=== PATIENT | male | born 1935 | race Caucasian/White ===

== ENCOUNTER 2023-02-02 11:24 | Outpatient (OUT) | payer MEDICARE, OTHER, SELFPAY ==
--- NOTE | 2023-02-02 11:37 | XR_ITS ---
[address] [address] Patient Name: KINGSLEY JENNINGS MRN: [id number] date: 1935 Sex: M Assigned Patient Location: [facility] Current Patient Location: [facility] Accession/Order Number: [id number] Exam Date: 02/02/2023 11:40 Report Date: 02/02/2023 12:07 At the request of: JENNIFER ESTES Procedure: XR lumbar spine 2-3V EXAM: XR lumbar spine 2-3V HISTORY: Lumbar Radiculopathy M54.16 COMPARISON: None. TECHNIQUE: 3 views Findings/impression: Satisfactory alignment. Maintained vertebral body heights. Mild endplate degenerative changes, disc disease, and facet arthropathy of L5-S1. No acute fracture or subluxation. Scattered calcified atherosclerotic disease of aorta. Electronically authenticated by: ASIF COLIN Date: 02/02/2023 12:07
== END 2023-02-02 11:25 | disposition home or self-care (01) ==
LOC: RAD 11:29
PROVIDERS: PCP Family Medicine; Visit Provider Family Medicine
DX: M54.16 Radiculopathy, lumbar region (principal)
CPT/HCPCS: 72100

== ENCOUNTER 2023-02-21 09:48 | Outpatient (RCR) | payer MEDICARE, OTHER, SELFPAY | END 2023-03-09 16:34 | disposition home or self-care (01) | LOC: PT 09:48 | PROVIDERS: PCP Family Medicine; Visit Provider Family Medicine | DX: M54.16 Radiculopathy, lumbar region (principal) | CPT/HCPCS: 97012; 97110; 97161 ==

== ENCOUNTER 2023-08-19 08:00 | Outpatient (REF) | payer MEDICARE, OTHER, SELFPAY ==
--- OUTSIDE RECORDS SUMMARY | 2023-08-20 11:27 | XMS_ITS | CCD ---
Author Organization [facility] Providers Care Kiln Cleaner Name Role Phone DAI SHARIFAB A Attending Unavailable ELTADAI PHOENIXAB A Admitting Unavailable JENNIFER MELVIN Referring Unavailable DOUGYJENNIFER Primary Care Unavailable HOY ., DR RODRIGUEZ Consulting Unavailable HOY ., DR RODRIGUEZ Primary Care Unavailable HOY ., DR RODRIGUEZ Attending Unavailable HOY ., DR RODRIGUEZ Admitting Unavailable ELTAHAWY, DR VALLEJO Consulting Unavailable HOY ., DR RODRIGUEZ Primary Care Unavailable HOY ., DR RODRIGUEZ Attending Unavailable HOY ., DR RODRIGUEZ Admitting Unavailable HOY ., DR RODRIGUEZ Primary Care Unavailable HOY ., DR RODRIGUEZ Attending Unavailable HOY ., DR RODRIGUEZ Admitting Unavailable ELTAHAWY, DR VALLEJO Consulting Unavailable HOY ., DR RODRIGUEZ Primary Care Unavailable ELTAHAWY, DR VALLEJO Attending Unavailable ELTAHAWY, DR VALLEJO Admitting Unavailable HOY ., DR RODRIGUEZ Consulting Unavailable HOY ., DR RODRIGUEZ Primary Care Unavailable HOY ., DR RODRIGUEZ Attending Unavailable HOY ., DR RODRIGUEZ Admvashti Unavailable ZIEBER, DR MACY Beckman Consulting Unavailable HOY ., DR RODRIGUEZ Consulting Unavailable HOY ., DR RODRIGUEZ Primary Care Unavailable HOY ., DR RODRIGUEZ Attending Unavailable HOY ., DR RODRIGUEZ Admitting Unavailable ZIEBER, DR MACY Beckman Consulting Unavailable HOY ., DR RODRIGUEZ Consulting Unavailable HOY ., DR RODRIGUEZ Primary Care Unavailable HOY ., DR RODRIGUEZ Attending Unavailable HOY ., DR RODRIGUEZ Admvashti Unavailable Gay Wheleer Consulting Unavailable [facility] Consulting Unavailable HOY ., DR RODRIGUEZ Primary Care Unavailable [facility] Attending Unavailable [facility] Admitting Unavailable [facility] Consulting Unavailable HOY ., DR RODRIGUEZ Primary Care Unavailable [facility] Attending Unavailable [facility] Admitting Unavailable HOY ., DR RODRIGUEZ Consulting Unavailable HOY ., DR RODRIGUEZ Primary Care Unavailable MEERA ., DR RODRIGUEZ Attending Unavailable MEERA ., DR RODRIGUEZ Admitting Unavailable Gay Wheeler Consulting Unavailable [facility], DR VALLEJO Consulting Unavailable VINH GUZMAN Attending Unavailable [facility], ADÁN Attending Unavailable [facility] Attending Unavailable Problems Active Problems Problem Classification Problem Date Documented Da te Episodic/Chronic Cardiac dysrhythmias (1 source) Ventricular tachycardia; Translations: [VENTRICULAR TACHYCARDIA] Onset: 12-21-2021 Chronic 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 sources) 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; Translations: [Angina pectoris, unspecified] Onset: 12-20-2021 Chronic Disorders of lipid metabolism (7 sources) Pure hypercholesterolemia, unspecified; Translations: [Mixed hyperlipidemia] Onset: 12-21-2021 Chronic Essential hypertension (2 sources) Essential (primary) hypertension; Translations: [Essential (primary) hypertension] Onset: 08-11-2022 Chronic Heart valve disorders (1 source) Rheumatic tricuspid insufficiency; 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 TRICUSPID INSUFFICIENCY] Onset: 12-22-2021 Chronic Other fractures (4 sources) Collapsed vertebra, not elsewhere classified, lumbosacral region, initial encounter for fracture; Translations: [COLLAPSED VERT NEC LS RGN INIT ENC] Onset: 05-22-2022 Episodic Other gastrointestinal disorders (1 source) Constipation, unspecified; Translations: [CONSTIPATION UNSPECIFIED] Onset: 07-31-2022 Episodic Other screening for suspected conditions (not mental disorders or infectious disease) (5 sources) Encounter for screening for malignant neoplasm of rectum; Translations: [Abnormal result of other cardiovascular function study] Onset: 12-21-2021 Episodic Nadia-; endo-; and myocarditis; cardiomyopathy (except that caused by tuberculosis or sexually transmitted disease) (1 source) Cardiomyopathy due to drug and external agent; 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] Onset: 12-22-2021 Chronic Spondylosis; intervertebral disc disorders; other back problems (2 sources) Other spondylosis with radiculopathy, lumbosacral region; Translations: [Other intervertebral disc degeneration, lumbosacral region] Onset: 05-25-2022 Chronic Spondylosis; intervertebral disc disorders; other back problems (7 sources) Radiculopathy, lumbar region; Translations: [Pain in thoracic spine] Onset: 01-05-2022 Episodic Sprains and strains (4 sources) Strain of muscle and tendon of back wall of thorax, subsequent encounter; Translations: [STRN MUSC TENDON BACK WALL THOR SUB] Onset: 05-14-2022 Episodic Unclassified (1 source) CONTACT W/AND (SUSP) EXPOS COVID-19; Translations: [CONTACT W/AND (SUSP) EXPOS COVID-19] Onset: 12-27-2021 Past or Other Problems Problem Classification Problem Date Documented Da te Episodic/Chronic Coronary atherosclerosis and other heart disease (2 sources) Presence of aortocoronary bypass graft; Translations: [Presence of aortocoronary bypass graft] Onset: 08-11-2022 Episodic Other aftercare (1 source) 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; Translations: [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] Onset: 12-27-2021 Episodic Results Test Name Value Interpretation Reference Range Facility Office Visiton 08-08-2023 Follow-up visit [id number] Fernie Naranjo 1935 M Date Provider Department Center 08/08/2023 271ADÁN WILL [facility] No family history on file Level of Service:36916 [place] OFFICE/OUTPATIENT ESTABLISHED LOW MDM 20 MIN Normal [facility] Office Visiton 02-06-2023 Follow-up visit [id number] Fernie Naranjo D 1935 M Date Provider Department Center 02/06/2023 ADÁN CHING ESPINOZA [facility] No family history on file Level of Service:04939 [place] OFFICE/OUTPATIENT ESTABLISHED LOW MDM 20-29 MIN Normal [facility] Office Visiton 08-11-2022 Follow-up visit [id number] Fernie Naranjo 1935 M Date Provider Department Center 08/11/2022 VINH CLAY [facility]INO[facility] No family history on file Level of Service:33463 [place] OFFICE/OUTPATIENT ESTABLISHED MOD MDM 30-39 MIN Reason for Visit and Comments: Follow-up [616261] - 6 mo f/u Medication Problem [65] - Dr. Melvin took him off of Amlodipine for 2 weeks due to constipation. However, it made no difference so far. Kingsley starts back on it tomorrow, August 12. Normal [facility] OCC BLD IMMUNO SCREENon 07-12 OCCULT BLOOD Negative Normal NEGATIVE [facility] Comment on above: Performed By: #### O BSCRN #### [facility] [address] [place] [address] Dr. Gricel Busch MRI LSPINE WO CONon 06-09-19 23 MRI LSPINE WO CON EXAMINATION: MRI LSP INE WO CON HISTORY: Lumbar radiculopathy COMPARISON: No relevant comparison available. TECHNIQUE: A variety of imaging planes and parameters were utilized for visualization of suspected pathology. FINDINGS: For the purposes of numbering, sagittal T2 image # 7 extends from the T11 vertebral body superiorly to the S3 level inferiorly. PARASPINAL AREA: Normal with no visible mass. BONES: Normal alignment with no acute fracture or spondylolisthesis. Small amount of bone edema identified inferior endplate of L3 superior endplate of L4, stable. Heterogeneous appearance of the marrow likely age-related changes CORD/CAUDA EQUINA: Normal caliber, contour, and signal intensity. DISC LEVELS: 12-L1: No significant disc/facet abnormality, spinal stenosis, or foraminal stenosis. L1-L2: Early degenerative disc disease is present without focal protrusion or neural impingement. L2-L3: Early degenerative disc disease is present without focal protrusion or neural impingement. L3-L4: Early degenerative disc disease is present without focal protrusion or neural impingement. L4-L5: Early degenerative disc disease is present without focal protrusion or neural impingement. L5-S1: Moderate degenerative disc disease is present without visible neural impingement. IMPRESSION: Mild to moderate degenerative changes most significant at L5-S1 No significant central canal or neural foraminal stenosis Electronically authenticated by: GAY WHEELER Date: 2022-06-09 09:46 Normal [facility] CT TSPINE WO CONon 2 CT TSPINE WO CON EXAMINATION: CT TSPI NE WO CON HISTORY: Pain in thoracic spine ; chronic thoracic pain between shoulder blades COMPARISON: No relevant comparison available. TECHNIQUE: Axial, Coronal, and Sagittal CT images obtained without and with IV contrast. Dose reduction techniques were achieved by using automated exposure control and/or adjustment of mA and/or kV according to patient size and/or use of iterative reconstruction technique. FINDINGS: PARASPINAL AREA: Incidental chronic calcified subcarinal lymph nodes within the mediastinum. DISCS: Early degenerative disc disease is present without focal protrusion or neural impingement. BONES: No fracture, pars defect, or osseous lesion. OTHER: Negative. IMPRESSION: 1. No appreciable acute abnormality. 2. Minimal degenerative changes. 3. No specific findings to account for patient's symptoms. Electronically authenticated by: MACY MICHAEL Date: 2022-01-05 16:34 Normal [facility] CBC COMPLETE BLOOD COUNTon 12-29-2021 Erythrocyte distribution width (RBC) [Ratio] 13.4 % Normal 11.5-15.0 [facility] Comment on above: Order Comment: No: D o not add to previous draw Performed By: #### 5 [id number] #### [facility] [address] Hematocrit (Bld) [Volume fraction] 38.5 % Low 39.0-50.0 [facility] Comment on above: Order Comment: No: D o not add to previous draw Performed By: #### 5 [id number] #### [facility] [address] [place] [address], [facility] Hemoglobin (Bld) [Mass/Vol] 13.5 g/dL Normal 13.0-17.0 [facility] Comment on above: Order Comment: No: D o not add to previous draw Performed By: #### 5 [id number] #### [facility] [address] [facility] [place] [address], [facility] MCH (RBC) [Entitic mass] 32.4 pg Normal 27.0-33.0 [facility] Comment on above: Order Comment: No: D o not add to previous draw Performed By: #### 5 [id number] #### [facility] [address] [place] [address], [facility] MCHC (RBC) [Mass/Vol] 35.1 g/dL High 32.0-35.0 [facility] Comment on above: Order Comment: No: D o not add to previous draw Performed By: #### 5 [id number] #### [facility] [address] [facility] [address], [facility] MCV (RBC) [Entitic vol] 92.3 fL Normal 82.0-98.0 [facility] Comment on above: Order Comment: No: D o not add to previous draw Performed By: #### 5 [id number] #### [facility] [address] [place] [address], [facility] Nucleated RBC/100 WBC (Bld) [Ratio] 0 % Normal 0-0 [facility] Comment on above: Order Comment: No: D o not add to previous draw Performed By: #### 5 [id number] #### [facility] [address] [place] [address], [facility] PLAT CNT 165 10*3/uL Normal 150-400 [facility] Comment on above: Order Comment: No: D o not add to previous draw Performed By: #### 5 [id number] #### [facility] [address] [place] [address], [facility] RBC (Bld) [#/Vol] 4.17 10*6/uL Low 4.20-5.70 [facility] Comment on above: Order Comment: No: D o not add to previous draw Performed By: #### 5 [id number] #### [facility] [address] [place] [address], [facility] WBC (Bld) [#/Vol] 8.33 10*3/uL Normal 4.00-10.60 [facility] Comment on above: Order Comment: No: D o not add to previous draw Performed By: #### 5 [id number] #### [facility] [address] [place] [address], [facility] CREATININE BLOODon 2 Creatinine [Mass/Vol] 0.82 mg/dL Normal 0.70-1.30 [facility] Comment on above: Order Comment: No: D o not add to previous draw Performed By: #### 2 5656 #### [facility] [address] GFR/1.73 sq M.predicted among non-blacks MDRD (S/P/Bld) [Vol rate/Area] mL/min/{1.73_m2} Normal >60 [facility] Comment on above: Order Comment: No: D o not add to previous draw Result Comment: [facility]'s estimated glomerular filtration rate (eGFR) will no longer include consideration of race in its calculation. The National Kid[employer] Foundation's eGFR Task Force developed new recommendations for the estimation of the glomerular filtration rate in the [place] They recommend immediate implementation of the new equation refit without the race variable in all laboratories because the calculation does not include race. In addition to not including race in the calculation and reporting, it included diversity in its development, and has acceptable performance characteristics and potential consequences that do not disproportionately affect any one group of individuals. Performed By: #### 2 [id number] #### [facility] [address] Cardiovascular Lab Reporton 12-29-2021 Cardiovascular Lab Report [facility] Patient Name: Marcella [facility] Shahrzad MR #: [id number] Department of Physician: Adeline Carlos M.D. Division of Service Date: 12/28/2021 Cardiology Birthdate: 1935 Adult Cardiovascular Room #: 3AB [id number] [place] [address] Cardiovascular Laboratory Report FINAL IMPRESSIONS: 1. Severe stenoses in the king salmon obtuse marginal branch of the left circumflex coronary artery distal to the touchdown of the saphenous vein graft. 2. Moderate disease of the saphenous vein graft to the obtuse marginal branch of the left circumflex coronary artery with a patent stent in the mid- to distal graft. 3. Patent left internal mammary artery graft to the left anterior descending. 4. Moderate to severe distal disease in the left anterior descending. 5. Moderate disease of the right coronary artery with heavy calcification. 6. Occluded left anterior descending and left circumflex coronary arteries. 7. Elevated systemic blood pressure. RECOMMENDATIONS: 1. Given the age of the saphenous vein grafts, the size and diffuse disease of the king salmon obtuse marginal branch, the patient's age and comorbidities, a conservative approach is recommended. Risks of percutaneous revascularization likely outweigh benefits at this juncture. 2. Optimal medical therapy for coronary artery disease should include aspirin, high intensity statin therapy, beta allyson. 3. Will add Imdur 30 mg a day and up titrate for symptomatic relief. 4. Switch metoprolol tartrate to Coreg for better blood pressure control and improving the supply demand mismatch. 5. Consider non-cardiac (musculoskeletal) etiologies for positional back pain. 6. Follow up with Dr. Sharif in the [place] office in the next 2-4 weeks. 7. Follow up with Dr. Melvin as scheduled. PROCEDURES: Ultrasound-guided access to the right common femoral artery, limited femoral angiography, bilateral selective coronary angiography, angiography of internal mammary artery graft, angiography of the saphenous vein graft, placement of a 6-Peruvian MynxGrip closure device. METHODS: After risks, benefits, and alternatives were explained, written informed consent was obtained. The patient was prepped and draped in usual sterile fashion over both groins. Using 1% lidocaine solution, local infiltration anesthesia was achieved. Using a modified Seldinger technique and a micropuncture kit and under ultrasound guidance, access to the right common femoral artery was obtained. Angiography via the inner cannula of the micropuncture kit was performed. This was upsized to a 6-Peruvian 11 cm sheath. Bilateral selective coronary angiography was performed using JL4 and JR4 catheters. Angiography of the saphenous vein graft was performed using an LCB catheter. The JR4 was used to cannulate the left subclavian and exchanged out for an IM catheter. Angiography of internal mammary artery graft was performed. After reviewing the images, and discussion of the risks and benefits with the patient, it was elected to conclude the procedure. All catheters were removed. A 6-Peruvian MynxGrip closure device was deployed per protocol achieving optimal hemostasis. Overall, the patient tolerated the procedure well. There were no overt complications. He was to be transferred to the holding area in stable condition. FINDINGS: Hemodynamics. AO: 170/85. LEFT VENTRICULOGRAPHY: This was not performed. Ejection fraction is normal by noninvasive imaging. CORONARY ARTERIES: Left main coronary artery: This arises from the left coronary cusp. It bifurcates into the left anterior descending and left circumflex coronary arteries, it shows calcific plaque. Left anterior descending coronary artery: This is occluded in the proximal portion. Distal filling is seen via patent left internal mammary artery graft. There is 60% stenosis just distal to the touchdown of the LANE graft. This appears unchanged. Left circumflex coronary artery. This is a small caliber vessel with occluded obtuse marginals. Distal filling is seen into the king salmon obtuse marginal via saphenous vein graft. Just distal to the touchdown of the graft, there is 80% to 90% stenosis. The vessel is 2 to 2.5 mm in size in this location and tapers rapidly. Right coronary artery: This is a dominant vessel giving rise to the posterior descending and posterolateral branches. It shows diffuse calcific plaque throughout. There is 40% to 50% mid vessel stenosis. The ostium of the posterior descending artery shows 60% stenosis. The distal RCA shows discrete 70% stenosis just prior to the 1st posterolateral branch. GRAFT ANGIOGRAPHY: Left internal mammary artery graft to the left anterior descending: this is widely patent. Saphenous vein graft to the obtuse marginal: this shows a patent (more content not included)... Normal [facility] TROPONIN-Ion 12-28-2021 Troponin I.cardiac [Mass/Vol] 0.09 ng/mL High 0.00-0.04 [facility] Comment on above: Order Comment: No: D o not add to previous draw Result Comment: REFE RENCE RANGES: 0.00 - 0.04 ng/ml NORMAL 0.05 - 0.50 ng/ml INDETERMINATE > 0.50 ng/ml CONSISTENT WITH AN M.I. Performed By: #### 3 [id number] #### [facility] [address] [facility] [place] [address], [facility] CBC AUTO DIFFon 12-26-2021 BASO # 0.0 103/ul Normal 0.0-0.1 [facility] Comment on above: Performed By: #### C BC #### [facility] [address] [address] [address] Gricel Busch Basophils/100 WBC (Bld) 0.6 % Normal 0.2-2.0 [facility] Comment on above: Performed By: #### C BC #### [facility] [address] [place] [address] Dr. Gricel Busch EO # 0.1 103/ul Normal 0.0-0.7 [facility] Comment on above: Performed By: #### C BC #### [facility] [address] [place] [address] Dr. Gricel Busch Eosinophils/100 WBC (Bld) 1.8 % Normal 0.9-7.0 [facility] Comment on above: Performed By: #### C BC #### [facility] [address] [place] [address] Dr. Gricel Busch Erythrocyte distribution width (RBC) [Ratio] 13.1 % Normal 11.0-15.0 [facility] Comment on above: Performed By: #### C BC #### [facility] [address] [place] [address] Dr. Gricel Busch Hematocrit (Bld) [Volume fraction] 42.4 % Normal 42.0-54.0 [facility] Comment on above: Performed By: #### C BC #### [facility] [address] [place] [address] Dr. Gricel Busch Hemoglobin (Bld) [Mass/Vol] 13.9 g/dL Critically low 14.0-18.0 [facility] Comment on above: Performed By: #### C BC #### [facility] [address] [place] [address] Dr. Gricel Busch IG # 0.03 10e3/ul Normal 0.00-0.03 [facility] Comment on above: Performed By: #### C BC #### [facility] [address] [place] [address] Dr. Gricel Busch IG % 0.4 % Normal 0.0-0.5 [facility] Comment on above: Performed By: #### C BC #### [facility] [address] [place] [address] Dr. Gricel Busch LYMPH # 1.2 103/ul Normal 1.2-3.8 [facility] Comment on above: Performed By: #### C BC #### [facility] [address] [place] [address] Dr. Gricel Busch Lymphocytes/100 WBC (Bld) 16.9 % Critically low 20.5-60.0 [facility] Comment on above: Performed By: #### C BC #### [facility] [address] [place] [address] Dr. Gricel Busch MANUAL DIFF REQ NO Normal [facility] Comment on above: Performed By: #### C BC #### [facility] [address] [place] [address] Dr. Gricel Busch MCH (RBC) [Entitic mass] 31.3 pg Normal 25.9-34.0 [facility] Comment on above: Performed By: #### C BC #### [facility] [address] [place] [address] Dr. Gricel Busch MCHC (RBC) [Mass/Vol] 32.8 g/dL Normal 29.9-35.2 [facility] Comment on above: Performed By: #### C BC #### [facility] [address] [place] [address] Dr. Gricel Busch MCV (RBC) [Entitic vol] 95.5 fL Critically high 80.0-94.0 [facility] Comment on above: Performed By: #### C BC #### [facility] [address] [place] [address] Dr. Gricel Busch MONO # 0.8 103/ul Normal 0.3-0.8 [facility] Comment on above: Performed By: #### C BC #### [facility] [address] [place] [address] Dr. Gricel Busch Monocytes/100 WBC (Bld) 10.9 % Normal 1.7-12.0 [facility] Comment on above: Performed By: #### C BC #### [facility] [address] [place] [address] Dr. Gricel Busch NEUT # 4.9 103/ul Normal 1.4-6.5 [facility] Comment on above: Performed By: #### C BC #### [facility] [address] [address] [address] Gricel Busch Neutrophils/100 WBC (Bld) 69.4 % Normal 43.0-75.0 [facility] Comment on above: Performed By: #### C BC #### [facility] [address] [address] [address] Gricel Busch Platelet mean volume (Bld) [Entitic vol] 9.6 fL Normal 9.5-13.5 [facility] Comment on above: Performed By: #### C BC #### [facility] [address] [address] [address] Gricel Busch PLT 191 103/ul Normal 150-450 [facility] Comment on above: Performed By: #### C BC #### [facility] [address] [place] [address] Dr. Gricel Busch RBC 4.44 106/ul Critically low 4.70-6.10 [facility] Comment on above: Performed By: #### C BC #### [facility] [address] [address] [address] Gricel Busch WBC 7.1 103/ul Normal 4.0-11.0 [facility] Comment on above: Performed By: #### C BC #### [facility] [address] [address] [address] Gricel Busch Covid-19 PCR (CVDTB)on 12-12 SARS-CoV-2 (COVID-19) RNA NIR+probe Ql (Unsp spec) Not detected Normal NOT DETECTED [facility] Comment on above: Result Comment: This test is not yet approved or cleared by the [place] FDA. When there are no FDA-approved or cleared tests available, and other criteria are met, FDA can make tests available under an emergency access mechanism called an Emergency Use Authorization (EUA). The EUA for this test is supported by the [place] of Health and Human Service's (HHS's) declaration that circumstances exist to justify the emergency use of in vitro diagnostics for the detection and/or diagnosis of the virus that causes COVID-19. This EUA will remain in effect (meaning this test can be used) for the duration of the COVID-19 declaration justifying emergency of IVDs, unless it is terminated or revoked by FDA (after which the test may no longer be used). When diagnostic testing is negative, the possibility of a false negative should be considered in the context of a patient's recent exposures and the presence of clinical signs and symptoms consistent with SARS-CoV-2. Performed By: #### [facility] #### [facility] [address] [place] [address] Dr. Gricel Busch PROF CHEM 8 (BAS METB)on Anion gap [Moles/Vol] 9.6 mmol/L Normal [facility] Comment on above: Performed By: #### B MP #### [facility] [address] [place] [address] Dr. Gricel Busch Calcium [Mass/Vol] 9.8 mg/dL Normal 8.5-10.1 [facility] Comment on above: Performed By: #### B MP #### [facility] [address] [place] [address] Dr. Gricel Busch Chloride [Moles/Vol] 102 mmol/L Normal 98-107 [facility] Comment on above: Performed By: #### B MP #### [facility] [address] [place] [address] Dr. Gricel Busch CO2 [Moles/Vol] 28.1 mmol/L Normal 21.0-32.0 [facility] Comment on above: Performed By: #### B MP #### [facility] [address] [place] [address] Dr. Gricel Busch Creatinine [Mass/Vol] 0.88 mg/dL Normal 0.70-1.30 [facility] Comment on above: Performed By: #### B MP #### [facility] [address] [place] [address] Dr. Gricel Busch EGFR-AF PALESTINIAN >60 Normal >=60 [facility] Comment on above: Performed By: #### B MP #### [facility] [address] [place] [address] Dr. Gricel Busch EGFR-NON AF PALESTINIAN >60 Normal >=60 [facility] Comment on above: Performed By: #### B MP #### [facility] [address] [address] [address] Gricel Busch Glucose [Mass/Vol] 101 mg/dL Normal 74-106 [facility] Comment on above: Performed By: #### B MP #### [facility] [address] [address] [address] Gricel Busch Potassium [Moles/Vol] 4.7 mmol/L Normal 3.5-5.1 [facility] Comment on above: Performed By: #### B MP #### [facility] [address] [address] [address] Gricel Busch Sodium [Moles/Vol] 135 mmol/L Critically low 136-145 [facility] Comment on above: Performed By: #### B MP #### [facility] [address] [address] [address] Gricel Busch Urea nitrogen [Mass/Vol] 12.0 mg/dL Normal 7.0-18.0 [facility] Comment on above: Performed By: #### B MP #### [facility] [address] [address] [address] Gricel Busch Urea nitrogen/Creatinine [Mass ratio] 13.6 mg/mg Normal [facility] Comment on above: Performed By: #### B MP #### [facility] [address] [place] [address] Dr. Gricel Busch ECHOCARDIO M/2D COMPLETEon 0 12-21-2021 ECHOCARDIO M/2D COMPLETE Patient: KINGSLEY NARANJO Exam Date: 12/21/2021 : 1935 Gender:M Ordering : DR JENNIFER MELVIN . Admission #: [id number] Family : Order #: [id number] CLICK HERE TO VIEW EXAM ECHOCARDIOGRAM REPORT PROCEDURE: CARDIO PULMONARY ECHOCARDIO M/2D COMP INDICATIONS: Angina, Ischemic Cardiomyopathy COMPARISON: None. DESCRIPTION: COMPLETE ECHOCARDIOGRAM Real-time transthoracic echocardiography with 2D, M-mode, spectral and color flow Doppler performed. QUALITY: Technical quality was good. LEFT VENTRICLE: Normal chamber size. Normal left ventricular wall thickness. Global left ventricular systolic function is normal. LV EF: Estimated left ventricular ejection fraction is 55-60%. DIASTOLIC: Normal diastolic function. ATRIAL SEPTUM: LEFT ATRIUM: Mild dilatation. RIGHT ATRIUM: Mild dilatation. RIGHT VENTRICLE: Normal chamber size. Normal right ventricular systolic function. TRICUSPID VALVE: Normal mobility and thickness. No stenosis with mild to moderate regurgitation. No evidence of pulmonary hypertension. RVSP 28 mmHg MITRAL VALVE: Normal mobility and thickness. No mitral valve prolapse. No evidence of mitral valve stenosis. There is no mitral annular calcification. Trivial mitral regurgitation. AORTIC VALVE: Normal trileaflet appearance. No visible sclerosis. Normal leaflet mobility. No evidence of aortic valve stenosis. Trivial aortic regurgitation. AORTIC ROOT: Mildly dilated, measuring 3.9 cm. The ascending aorta measures 3.2 cm. PULMONIC VALVE: Normal thickness and mobility. No stenosis. Trivial regurgitation. PERICARDIUM: No evidence of pericardial effusion. IVC: Collapses with inspirations. Normal size. PLEURA: CONCLUSION: 1. Normal ventricular function. LVEF is 55 to 60%. 2. Mild biatrial dilatation. 3. Mild to moderate tricuspid regurgitation. 4. Normal right-sided pressures. 5. No pericardial effusion. 6. Mild dilated aortic root, measuring 3.9 cm. Dictated by: Kenney Daniels M.D. on 12/21/2021 at 19:22 Approved by: Kenney Daniels M.D. on 12/21/2021 at 19:28 Normal [facility] STRESS/REST MULTIon 12-20 [place] STRESS/REST MULTI Patient: KINGSLEY NARANJO Exam Date: 12/20/2021 : 1935 Gender:M Ordering : DR JENNIFER MELVIN . Admission #: [id number] Family : Order #: [id number] CLICK HERE TO VIEW EXAM RADIOLOGY REPORT PROCEDURE: RADIONUCLIDE IMAGING STRESS/REST MULTI COMPARISON: None. INDICATIONS: Ischemic cardiomyopathy, angina TECHNIQUE: Exam Description: Stress/Rest one day protocol gated SPECT Rest Imagin.7 mCi Tc-99m Cardiolite IV on 12/20/2021 Stress Imaging 29.7 mCi Tc-99m Cardiolite IV on 12/20/2021 Exercise Protocol: Rahul Heart Rate (bpm): Rest: 51 Max: 115 PMHR: 86 Blood Pressure: Rest: 114/76 Max: 174/80 Exercise Time: Minutes: 6 Seconds: 45 Stage Reached: Stage: 3 Mets 7.6 Symptoms: chest pain Rest and peak stress ECG findings were abnormal and the exercise portion of the study was abnormal per attending physician Dr. Thompson due to EKG changes. For more details please see separate cardiac stress test report. FINDINGS: QUALITY OF STUDY: Good. PERFUSION DEFECT: LOCATION: Basal inferolateral. Basal anterolateral. Mid-inferolateral. Mid-anterolateral. Apical lateral. SIZE: Large (5 or more segments). SEVERITY: Moderate. TYPE: Reversible. WALL MOTION: Normal. LV SIZE: Normal. 88 mL. TID / TCD: None; 0.9 LVEF: Normal. Calculated EF 61%. SUMMARY: Myocardial perfusion imaging study has ABNORMAL findings. CONCLUSION: 1. Large perfusion abnormality with suspected reversibility in the lateral wall, circumflex distribution. Further evaluation is recommended 2. Abnormal exercise test secondary to EKG changes Dictated by: Gay Wheeler MD on 12/20/2021 at 14:09 Approved by: Gay Wheeler MD on 12/20/2021 at 14:18 Normal [facility] Encounters Encounter Date Encounter Type Care Provider Facility Start: 08-08-2023 End: 08-08-2023 ambulatory [facility] Start: 07-25-2023 End: 07-25-2023 ambulatory Not Available Start: 07-12-2023 End: 07-12-2023 ambulatory Not Available Start: 02-06-2023 End: 02-06-2023 ambulatory [facility] Start: 08-11-2022 End: 08-11-2022 ambulatory VINH GUZMAN [facility] Start: 07-28-2022 End: 07-28-2022 ambulatory CK NIXON Facility:[facility] Start: 07-26-2022 End: 07-26-2022 ambulatory CK NIXON Facility:[facility] Start: 06-09-2022 End: 06-10-[address] JENNIFER MELVIN . Facility:[facility] Start: 05-22-2022 End: 05-23-[address] JENNIFER MELVIN . Facility:[facility] Start: 05-14-2022 End: 06-02-[address] JENNIFER MELVIN . Facility:[facility] Start: 05-01-2022 End: 05-13-[address] JENNIFER MELVIN . Facility:[facility] Start: 01-05-2022 End: 01-06-[address] JENNIFER MELVIN . Facility:[facility] Start: 12-28-2021 End: 12-29-2021 ambulatory DAI Anna TOYA Facility:[facility] Start: 12-26-2021 End: 12-27-[address] ADÁN SHARIF Facility:[facility] Start: 12-21-2021 End: 12-22-[address] JENNIFER MELVIN . Facility:[facility] Start: 12-20-2021 End: 12-21-[address] JENNIFER MELVIN . Facility: Payers Date Payer Category Payer Medicare [id number] 1960 Private Health Insurance [id number] 1935 Unknown [id number] 2.16.8 [id number] 1935 Unknown [id number] 2.16.84 [id number] 1935 Unknown [id number] 2.16.84 [id number] 1934 Unknown [id number] 2.16.84 [id number] 1934 Unknown [id number] 2.16.84 [id number] 1934 Unknown [id number] 2.16.84 [id number] 1934 Unknown [id number] 2.16.84 [id number] 1934 Unknown [id number] 2.16.84 [id number] 1934 Unknown [id number] 2.16.84 [id number] 1934 Unknown [id number] 2.16.84 [id number] 1934 Unknown [id number] 2.16.84 [id number] 1934 Unknown [id number] 2.16.84 [id number] 1934 Unknown [id number] 2.16.84 [id number] Clinical Notes 12-30-2021 to 08-08-2023 Note Date & Type Note Facility 08-08-2023 Note [facility] Cardiology Clinic Note Chief Complaint: Patient here for 6 mo follow up CAD, hyperlipidemia, and hypertension. He started cutting isosorbide in half due to headaches. Denies chest pain, SOB, palpitations, and lightheadedness/syncope. HPI: Kingsley Naranjo is a 87 y.o. male With a history of coronary artery disease, prior coronary artery bypass graft surgery who is here in routine follow-up. He has no significant cardiovascular complaints. He does have lower extremity edema and continues to have back pain which is chronic. His physicians are working to adjust his thyroid replacement. Cardiology ROS: Review of Systems Cardiovascular: Positive for leg swelling (L>R). Musculoskeletal: Positive for back pain. All other systems reviewed and are negative. Past Medical History He has no past medical history on file. Surgical History He has no past surgical history on file. Social History He reports that he has never smoked. He has never been exposed to tobacco smoke. He has never used smokeless tobacco. He reports current alcohol use. He reports that he does not use drugs. Family History No family history on file. Allergies Patient has no known allergies. Medications Current Outpatient Medications: amLODIPine (Norvasc) 2.5 mg tablet, Take 2.5 mg by mouth in the morning., Disp: , Rfl: aspirin 81 mg EC tablet, in the morning., Disp: , Rfl: carvedilol (Coreg) 3.125 mg tablet, Take 3.125 mg by mouth in the morning and at bedtime., Disp: , Rfl: ergocalciferol, vitamin D2, (VITAMIN D2 ORAL), Vitamin D2 1 tablet twice a week, Disp: , Rfl: isosorbide mononitrate ER (Imdur) 30 mg 24 hr tablet, Take 30 mg by mouth in the morning., Disp: , Rfl: levothyroxine (Synthroid, Levoxyl) 75 mcg tablet, Take 75 mcg by mouth in the morning., Disp: , Rfl: rosuvastatin (Crestor) 20 mg tablet, Take 20 mg by mouth at bedtime., Disp: , Rfl: simvastatin (Zocor) 40 mg tablet, in the morning., Disp: , Rfl: tamsulosin (Flomax) 0.4 mg 24 hr capsule, Take 1 capsule every day by oral route., Disp: , Rfl: Last Recorded Vitals BP 124/76 (BP Location: Left arm, Patient Position: Sitting) Pulse 55 Ht 1.753 m (5' 9 ) Wt 75.3 kg (166 lb) SpO2 98% BMI 24.51 kg/m??? Physical Examination: GENERAL: alert and oriented x3, well developed, in no acute distress. HEAD: atraumatic, normocephalic. EYES: KAREN, EOMI. NECK: trachea midline, no JVD present, no carotid bruits present. CARDIAC: S1, S2 present. RRR. No murmur, rubs, or gallops. RESPIRATORY: CTAB, no increased effort of breathing, no rales, rhonchi, or wheezing. ABDOMEN: soft, nontender, nondistended. EXTREMITIES: no lower extremity edema, peripheral pulses are 2+ bilaterally. No rash/skin discoloration present. NEURO: strength/sensation equal and symmetric in bilateral upper and lower extremities. PSYCH: appropriate mood, affect, and judgement. Investigations: Service Date: 12/28/2021 Cardiovascular Laboratory Report FINAL IMPRESSIONS: 1. Severe stenoses in the king salmon obtuse marginal branch of the left circumflex coronary artery distal to the touchdown of the saphenous vein graft. 2. Moderate disease of the saphenous vein graft to the obtuse marginal branch of the left circumflex coronary artery with a patent stent in the mid- to distal graft. 3. Patent left internal mammary artery graft to the left anterior descending. 4. Moderate to severe distal disease in the left anterior descending. 5. Moderate disease of the right coronary artery with heavy calcification. 6. Occluded left anterior descending and left circumflex coronary arteries. 7. Elevated systemic blood pressure. RECOMMENDATIONS: 1. Given the age of the saphenous vein grafts, the size and diffuse disease of the king salmon obtuse marginal branch, the patient's age and comorbidities, a conservative approach is recommended. Risks of percutaneous revascularization likely outweigh benefits at this juncture. 2. Optimal medical therapy for coronary artery disease should include aspirin, high intensity statin therapy, beta allyson. 3. Will add Imdur 30 mg a day and up titrate for symptomatic relief. 4. Switch metoprolol tartrate to Coreg for better blood pressure control and improving the supply demand mismatch. 5. Consider non-cardiac (musculoskeletal) etiologies for positional back pain. 6. Follow up with Dr. Sharif in the [place] office in the next 2-4 weeks. 7. Follow up with Dr. Melvin as scheduled. PROCEDURES: Ultrasound-guided access to the right common femoral artery, limited femoral angiography, bilateral selective coronary angiography, angiography of internal mammary artery graft, angiography of the saphenous vein graft, placement of a 6-Peruvian MynxGrip closure device. Echocardiogram 12/2021: Global left ventricular systolic function is normal; EF 55 to 60%. Mild biatrial dilatation. Mild to moderate tricuspid regurgitati (more content not included)... [facility] 02-06-2023 Note [facility] Cardiology Clinic Note Chief Complaint: Patient here for 6 mo follow up CAD, hypertension, and hyperlipidemia. Had labs at the [facility] in September, and his PCP at the [facility] switched his statin to Crestor. He and his son aren't sure why since his numbers were great. Denies chest pain and SOB. C/o LLE pain with rest and ambulation. Said he had recent xrays and was diagnosed with arthritis. HPI: Kingsley Naranjo is a 87 y.o. male With a history of coronary artery disease, prior coronary artery bypass graft surgery who is here in routine follow-up. He has no significant cardiovascular complaints. He does have lower extremity edema and continues to have back pain which is chronic. Cardiology ROS: Review of Systems Cardiovascular: Positive for leg swelling (L>R). Musculoskeletal: Positive for back pain. All other systems reviewed and are negative. Past Medical History He has no past medical history on file. Surgical History He has no past surgical history on file. Social History He reports that he has never smoked. He has never been exposed to tobacco smoke. He has never used smokeless tobacco. He reports current alcohol use. He reports that he does not use drugs. Family History No family history on file. Allergies Patient has no known allergies. Medications Current Outpatient Medications: amLODIPine (Norvasc) 2.5 mg tablet, Take 2.5 mg by mouth in the morning., Disp: , Rfl: aspirin 81 mg EC tablet, in the morning., Disp: , Rfl: carvedilol (Coreg) 3.125 mg tablet, Take 3.125 mg by mouth in the morning and at bedtime., Disp: , Rfl: ergocalciferol, vitamin D2, (VITAMIN D2 ORAL), Vitamin D2 1 tablet twice a week, Disp: , Rfl: isosorbide mononitrate ER (Imdur) 30 mg 24 hr tablet, Take 30 mg by mouth in the morning., Disp: , Rfl: levothyroxine (Synthroid, Levoxyl) 75 mcg tablet, Take 75 mcg by mouth in the morning., Disp: , Rfl: polyethylene glycol (Glycolax) 17 gram/dose powder, MIX 1 SCOOP IN LIQUID AND DRINK ONCE A DAY, Disp: , Rfl: simvastatin (Zocor) 40 mg tablet, in the morning., Disp: , Rfl: tamsulosin (Flomax) 0.4 mg 24 hr capsule, Take 1 capsule every day by oral route., Disp: , Rfl: Last Recorded Vitals BP 105/59 (BP Location: Left arm, Patient Position: Sitting) Pulse 62 Ht 1.753 m (5' 9 ) Wt 73.5 kg (162 lb) SpO2 97% BMI 23.92 kg/m??? Physical Examination: GENERAL: alert and oriented x3, well developed, in no acute distress. HEAD: atraumatic, normocephalic. EYES: KAREN, EOMI. NECK: trachea midline, no JVD present, no carotid bruits present. CARDIAC: S1, S2 present. RRR. No murmur, rubs, or gallops. RESPIRATORY: CTAB, no increased effort of breathing, no rales, rhonchi, or wheezing. ABDOMEN: soft, nontender, nondistended. EXTREMITIES: no lower extremity edema, peripheral pulses are 2+ bilaterally. No rash/skin discoloration present. NEURO: strength/sensation equal and symmetric in bilateral upper and lower extremities. PSYCH: appropriate mood, affect, and judgement. Investigations: Service Date: 12/28/2021 Cardiovascular Laboratory Report FINAL IMPRESSIONS: 1. Severe stenoses in the king salmon obtuse marginal branch of the left circumflex coronary artery distal to the touchdown of the saphenous vein graft. 2. Moderate disease of the saphenous vein graft to the obtuse marginal branch of the left circumflex coronary artery with a patent stent in the mid- to distal graft. 3. Patent left internal mammary artery graft to the left anterior descending. 4. Moderate to severe distal disease in the left anterior descending. 5. Moderate disease of the right coronary artery with heavy calcification. 6. Occluded left anterior descending and left circumflex coronary arteries. 7. Elevated systemic blood pressure. RECOMMENDATIONS: 1. Given the age of the saphenous vein grafts, the size and diffuse disease of the king salmon obtuse marginal branch, the patient's age and comorbidities, a conservative approach is recommended. Risks of percutaneous revascularization likely outweigh benefits at this juncture. 2. Optimal medical therapy for coronary artery disease should include aspirin, high intensity statin therapy, beta allyson. 3. Will add Imdur 30 mg a day and up titrate for symptomatic relief. 4. Switch metoprolol tartrate to Coreg for better blood pressure control and improving the supply demand mismatch. 5. Consider non-cardiac (musculoskeletal) etiologies for positional back pain. 6. Follow up with Dr. Sharif in the [place] office in the next 2-4 weeks. 7. Follow up with Dr. Melvin as scheduled. PROCEDURES: Ultrasound-guided access to the right common femoral artery, limited femoral angiography, bilateral selective coronary angiography, angiography of internal mammary artery graft, angiography of the saphenous vein graft, placement of a 6-Peruvian MynxGrip closure device. Labs 09/18/2022: Total cholesterol 119, LDL 63, (more content not included)... [facility] 08-11-2022 Note [facility] 08-11-2022 Note Lipid abnormalities are Currently well controlled continue simvastatin 40 mg daily [facility] 08-11-2022 Note Hypertension is well controlled 114/70 Continue amlodipine, coreg and imdur. [facility] 08-11-2022 Note [facility] CARDIOLOGY PROGR ESS NOTE HPI: Kingsley Naranjo is a 86 y.o. male here for Follow-up (6 mo f/u) and Medication Problem (Dr. Melvin took him off of Amlodipine for 2 weeks due to constipation. However, it made no difference so far. Kingsley starts back on it tomorrow, August 12.) Denied chest pain, Shortness of breath, orthopnea, palpitations, leg swelling. States he walks 2 miles 3 days a week- Denies any exercise limiting symptoms. Overall doing very well Review of Systems All other systems reviewed and are negative. Visit Vitals BP 114/70 (BP Location: Left arm, Patient Position: Sitting) Pulse 66 Ht 1.753 m (5' 9 ) Wt 75.6 kg (166 lb 10.6 oz) SpO2 98% BMI 24.61 kg/m??? Smoking Status Never BSA 1.92 m??? No Known Allergies Medications: Current Outpatient Medications on File Prior to Visit Medication Sig Dispense Refill simvastatin (Zocor) 40 mg tablet in the morning. amLODIPine (Norvasc) 2.5 mg tablet Take 2.5 mg by mouth in the morning. aspirin 81 mg EC tablet in the morning. carvedilol (Coreg) 3.125 mg tablet Take 3.125 mg by mouth in the morning and at bedtime. ergocalciferol, vitamin D2, (VITAMIN D2 ORAL) Vitamin D2 1 tablet twice a week isosorbide mononitrate ER (Imdur) 30 mg 24 hr tablet Take 30 mg by mouth in the morning. levothyroxine (Synthroid, Levoxyl) 75 mcg tablet Take 75 mcg by mouth in the morning. polyethylene glycol (Glycolax) 17 gram/dose powder MIX 1 SCOOP IN LIQUID AND DRINK ONCE A DAY tamsulosin (Flomax) 0.4 mg 24 hr capsule Take 1 capsule every day by oral route. No current facility-administered medications on file prior to visit. Physical Exam: Constitutional: Appearance: Normal appearance. Without apparent distress HENT: Head: Normocephalic and atraumatic. Nose: Nose normal. Mouth/Throat: Mouth: Mucous membranes are moist. Eyes: Extraocular Movements: Extraocular movements intact. Conjunctiva/sclera: Conjunctivae normal. Neck: Vascular: No JVD. Cardiovascular: Rate and Rhythm: Normal rate and regular rhythm. Pulses: Dorsalis pedis pulses are 3 on the right side and 3on the left side. Posterior tibial pulses are 3 on the right side and 3 on the left side. Heart sounds: Normal heart sounds, S1 normal and S2 normal. Pulmonary: Effort: Pulmonary effort is normal. Breath sounds: Normal breath sounds. Abdominal: General: Bowel sounds are normal. Palpations: Abdomen is soft. Musculoskeletal: General: Normal range of motion. Cervical back: Normal range of motion. Right lower leg: No edema. Left lower leg: No edema. Skin: General: Skin is warm and dry. Capillary Refill: Capillary refill takes less than 2 seconds. Neurological: General: No focal deficit present. Mental Status: She is alert and oriented to person, place, and time. Psychiatric: Mood and Affect: Mood normal. Behavior: Behavior normal. Thought Content: Thought content normal. Judgment: Judgment normal. Labs: 07/07/21 Last lab values have been reviewed [facility] Testin02/18/2018 Echo 09/24/20 Carotid US No echocardiogram results found for the past 12 months Assessment/Plan: Coronary artery disease involving king salmon coronary artery of king salmon heart without angina pectoris Goal-directed medical therapy including aspirin, carvedilol, Imdur, simvastatin continue risk factor modifications- heart healthy diet, regular exercise as tolerated and continue all medications. Discussed with patient regarding uncontrolled diabetes and inflammatory processes, and concerns regarding his known coronary artery disease and recommendation to follow-up with endocrinology- Voiced agreement and understanding Benign essential HTN Hypertension is well controlled 114/70 Continue amlodipine, coreg and imdur. Mixed hyperlipidemia Lipid abnormalities are Currently well controlled continue simvastatin 40 mg daily H/O four vessel coronary artery bypass graft Stable RTC 6 months [facility] 08-11-2022 Note Review of Systems All other systems reviewed and are negative. [facility] 08-11-2022 Note Goal-directed medica l therapy including aspirin, carvedilol, Imdur, simvastatin continue risk factor modifications- heart healthy diet, regular exercise as tolerated and continue all medications. Discussed with patient regarding uncontrolled diabetes and inflammatory processes, and concerns regarding his known coronary artery disease and recommendation to follow-up with endocrinology- Voiced agreement and understanding [facility] 05-23-2022 Note PROCEDURE: XR LSPINE MIN 4 VIEWS HISTORY: Collapse of vertebra ; chronic low back pain radiating into left hip COMPARISON: XR L-spine 02/18/2021 FINDINGS: BONES:Grade 1 anterior listhesis of L5 on S1 with suspected bilateral pars interarticularis defects. No acute fracture or bone lesion. DISC SPACES: Marked narrowing L5-S1. Mild narrowing T10-11, T11-12. PARASPINOUS: Negative. No paraspinous abnormality is seen. OTHER: Negative. IMPRESSION: 1. L5-S1 marked degenerative disc disease and grade 1 anterior listhesis; stable to slightly progressed since prior study. Electronically authenticated by: MACY MICHAEL Date: 2022-05-23 08:14 [facility] 05-23-2022 Note PROCEDURE: XR HIP LT 2 3V W PELVIS HISTORY: Collapse of vertebra ; chronic low back pain radiating to left hip COMPARISON: None. FINDINGS: BONES:Mild narrowing of the superior aspect the hip joint spaces bilaterally and small osteophytes along the superior rim of the acetabulum. No fracture, dislocation, bone lesion. SOFT TISSUES:No visible soft tissue swelling. EFFUSION:None visible. OTHER: Negative. IMPRESSION: 1. Minimal degenerative changes given patient's age. 2. No acute bone abnormality. Electronically authenticated by: MACY MICHAEL Date: 2022-05-23 08:09 [facility] 12-30-2021 Note MR#: [id number] 2 [facility] Pt. Name: Kingsley Naranjo Admitted: 12/28/2021 Discharged: 12/29/2021 Date of : 1935 Physician: Adán Sharif M.D. DISCHARGE SUMMARY PRIMARY ADMISSION DIAGNOSES: Elective cardiac catheterization for presumed angina and an abnormal stress test SECONDARY DIAGNOSES: 1. History of CAD with coronary artery bypass surgery in the past. 2. Hypertension. 3. Hyperlipidemia. 4. Benign prostatic hyperplasia. 5. Chronic back issues. MEDICATIONS AT TIME OF DISCHARGE: 1. Aspirin 81 mg daily. 2. Amlodipine 2.5 mg daily. 3. Isosorbide mononitrate 30 mg daily. 4. Carvedilol 3.125 mg twice a day. 5. Simvastatin 40 mg daily. 6. Tamsulosin 0.4 mg daily. 7. Tizanidine 5 mg daily. 8. Nitroglycerin 0.4 mg as needed. PROCEDURE PERFORMED: Coronary angiogram as well as bypass graft angiography. Coronary angiogram showed king salmon arteries left main is calcified but patent. Left circumflex artery is chronically occluded. Left anterior descending proximally is occluded. Right coronary artery is dominant, has some sinus of valsalva 50% stenosis in the mid. PDA branch approximately has 70% stenosis. LANE to the LAD is patent. Mild diffuse disease just distal to the anastomotic site. SVG to OM is patent, however, there is distal to anastomosis 90% tubular stenosis. Cardiac findings discussed with the patient and decided for medical therapy. The patient continues to have symptoms of angina in spite of medical therapy and will plan on intervening on the OM vessel distal to anastomotic site. Embolization is very high because of the graft that he holds. HOSPITAL COURSE: The patient is an 86-year-old male with known history CAD and CABG in the past, who has been having exertional upper back pain. He underwent a stress test which showed ST depression and reversible ischemia in lateral wall. He has elective left heart catheterization. Left heart catheterization was performed and the findings are as summarized above. Important finding was 90% tubular stenosis in the OM branch distal to the anastomotic site. In the recovery stage, the patient started having some back pain and his blood pressure was in 200 systolic. We decided to observe the patient overnight and bring his blood pressure down. The patient felt fine. He does have chronic back issues. The patient stated that his back pain sounded like musculoskeletal pain. 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 The patient felt fine on 12/29/2021. He wants to go home. No concerning events on telemetry overnight except the right bundle branch block. PHYSICAL EXAMINATION AT TIME OF DISCHARGE: GENERAL: The patient is alert, awake, and oriented. Lungs: Bilateral breath sounds are equal and clear. CVS: S1 and S2 were normal, soft systolic murmur. EXTREMITIES: Trace pedal edema. Tenderness over the paraspinal muscles. ABDOMEN: Soft, nontender, bowel sounds are present. GROIN: Right groin did not show any hematoma or any abnormal thrill. The patient will follow Dr. Sharif in clinic on January 18. The patient is advised to give us a call in case if any new symptoms appear. Electronically Signed by: Adán Sharif M.D. 12/31/2021 02:19 P Adán Sharif M.D. I have reviewed this discharge summary and confirmed the resident's documentation. Please note that there may be additional documentation from [place]. Date Dict: 12/29/2021/12:08 Geo/Peterson Jensen MD Date Trans: 12/30/2021 09:11 A/jeanne [id number] cc: Jennifer Melvin M.D. [address], [facility] [id number] [facility] Summary Purpose Family History No Family History Records FoundNo Family History Records FoundNo Family History Records FoundNo Family History Records Found Advance Directives No Advanced Directives Records FoundNo Advanced Directives Records FoundNo Advanced Directives Records FoundNo Advanced Directives Records Found Additional Source Comments (unrecognized sect ion and content) No Status Records FoundNo Status Records FoundNo Status Records FoundNo Status Records Found INFORMATION SOURCE (unrecogn ized section and content) DATE CREATED AUTHOR 01/08/2022 [facility] DATE CREATED AUTHOR AUTHOR'S ORGANIZ ATION 08/06/2022 [facility] DATE CREATED AUTHOR AUTHOR'S ORGANIZ ATION 07/26/2023 [facility] DATE CREATED AUTHOR AUTHOR'S ORGANIZ ATION 08/09/2023 [facility] FOR RECORDS PERTAINING TO PATIENTS WHO ARE OR HAVE BEEN ENROLLED IN A CHEMICAL DEPENDENCY/SUBSTANCEABUSE PROGRAM, SOME INFORMATION MAY BE OMITTED. This clinical summary was aggregated from multiple sources. Caution should be exercised in using it in the provision of clinical care. This summary normalizes information from multiple sources, and as a consequence, information in this document may materially change the coding, format and clinical context of patient data. In addition, data may be omitted in some cases. CLINICAL DECISIONS SHOULD BE BASED ON THE PRIMARY CLINICAL RECORDS. [employer] [facility]. provides no warranty or guarantee of the accuracy or completeness of information in this document.
[2023-08-20 16:24] LABS: Occult Blood Negative
== END 2023-08-19 08:01 | disposition home or self-care (01) ==
LOC: LAB 08:00
PROVIDERS: PCP Family Medicine; Visit Provider Family Medicine
DX: Z12.11 Encounter for screening for malignant neoplasm of colon (principal)
CPT/HCPCS: G0328

== ENCOUNTER 2023-09-03 10:06 | Outpatient (OUT) | payer MEDICARE, OTHER, SELFPAY ==
[2023-09-03 10:24] LABS: Basophils Percent Auto 0.6 % (0.2-2.0); Eosinophils Absolute Auto 0.1 10^3/uL (0.0-0.7); Eosinophils Percent Auto 2.7 % (0.9-7.0); Hemoglobin 13.5 g/dL (14.0-18.0); Immature Granulocytes Abs Auto 0.02 10^3/uL (0.00-0.03); Immature Granulocytes Pct Auto 0.4 % (0.0-0.5); Lymphocytes Absolute Auto 1.3 10^3/uL (1.2-3.8); Lymphocytes Percent Auto 24.2 % (20.5-60.0); Mean Corpuscular HGB Conc 32.9 g/dL (29.9-35.2); Mean Corpuscular Volume 97.2 fL (80.0-94.0); Mean Platelet Volume 9.7 fL (9.5-13.5); Monocytes Absolute Auto 0.7 10^3/uL (0.3-0.8); Monocytes Percent Auto 13.3 % (1.7-12.0); Neutrophils Absolute Auto 3.1 10^3/uL (1.4-6.5); Neutrophils Percent Auto 58.8 % (43.0-75.0); Platelet Count 154 10^3/uL (150-450); Red Blood Count 4.22 10^6/uL (4.70-6.10); Red Cell Distribution Width 13.2 % (11.0-15.0); White Blood Count 5.3 10^3/uL (4.0-11.0)
--- OUTSIDE RECORDS SUMMARY | 2023-09-03 10:29 | XMS_ITS | CCD ---
Author Organization [facility] Care Team Providers Care Brand Marketing Specialist Name Role Phone DAI SHARIFAB A Attending [...] HOY ., DR RODRIGUEZ Admvashti Unavailable Gay Wheeler Consulting Unavailable CK NIXON Consulting Unavailable HOY [...] RODRIGUEZ Admitting Unavailable Gay Wheeler Consulting Unavailable [facility], DR VALLEJO Consulting Unavailable VINH GUZMAN Attending Unavailable [facility], ADÁN Attending Unavailable [facility], ADÁN Attending Unavailable Problems Active Problems Problem Classification Problem Date Documented Da te Episodic/Chronic Cardiac dysrhythmias (1 source) Ventricular tachycardia; Translations: [VENTRICULAR TACHYCARDIA] Onset: 12-21-2021 Chronic 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 sources) 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; Translations: [Angina [...] 08-11-2022 Episodic Other aftercare (1 source) Other mcc (current) drug therapy; Translations: [OTH PENITENTIARY CURRENT DRUG THERAPY] Onset: 12-27-2021 Episodic Results Test Name Value Interpretation Reference Range Facility Office Visiton 08-08-2023 Follow-up visit [id number] Fernie Naranjo 1935 M Date Provider Department Center 08/08/2023 271ADÁN WILL ESPINOZA [facility] No family history on file Level of Service:68339 [place] OFFICE/OUTPATIENT ESTABLISHED LOW MDM 20 MIN Normal [facility] Office Visiton 02-06-2023 Follow-up visit [id number] Fernie Naranjo D 1935 M Date Provider Department Center 02/06/2023 ADÁN CHING ESPINOZA [facility] No family history on file Level of Service:21793 [place] OFFICE/OUTPATIENT ESTABLISHED LOW MDM 20-29 MIN Normal [facility] Office Visiton 08-11-2022 Follow-up visit [id number] Fernie Naranjo 1935 M Date Provider Department Center 08/11/2022 VINH CLAY ESPINOZA [facility] No family history on file Level of Service:38438 [place] OFFICE/OUTPATIENT ESTABLISHED MOD MDM 30-39 MIN Reason for Visit and Comments: Follow-up [365581] - 6 mo f/u Medication Problem [65] - Dr. Melvin took him off of Amlodipine for 2 weeks due to constipation. However, it made no difference so far. Kingsley starts back on it tomorrow, August 12. Normal [facility] OCC BLD IMMUNO SCREENon 07-12 OCCULT BLOOD Negative Normal NEGATIVE [facility] Comment on above: Performed By: #### O BSCRN #### [facility] [address] [place] [address] Dr. Gricel Busch MRI LSPINE WO CONon [...] GAY WHEELER Date: 2022-06-09 09:46 Normal [facility] CT TSPINE WO CONon 2 CT [...] by: MACY MICHAEL Date: 2022-01-05 16:34 Normal [facility] CBC COMPLETE BLOOD COUNTon 12-29-2021 Erythrocyte distribution width (RBC) [Ratio] 13.4 % Normal 11.5-15.0 [facility] Comment on above: Order Comment: No: D o not add to previous draw Performed By: #### 5 0608 #### [facility] [address] Hematocrit (Bld) [Volume fraction] 38.5 % Low 39.0-50.0 [facility] Comment on above: Order Comment: No: D o not add to previous draw Performed By: #### 5 0608 #### [facility] [address] [place] [address], [facility] Hemoglobin (Bld) [Mass/Vol] 13.5 g/dL Normal 13.0-17.0 [facility] Comment on above: Order Comment: No: D o not add to previous draw Performed By: #### 5 0608 #### [facility] [address] [facility] [place] [address], [facility] MCH (RBC) [Entitic mass] 32.4 pg Normal 27.0-33.0 [facility] Comment on above: Order Comment: No: D o not add to previous draw Performed By: #### 5 0608 #### [facility] [address] [place] [address], [facility] MCHC (RBC) [Mass/Vol] 35.1 g/dL High 32.0-35.0 [facility] Comment on above: Order Comment: No: D o not add to previous draw Performed By: #### 5 0608 #### [facility] [address] [facility] [place] [address], [facility] MCV (RBC) [Entitic vol] 92.3 fL Normal 82.0-98.0 [facility] Comment on above: Order Comment: No: D o not add to previous draw Performed By: #### 5 0608 #### [facility] [address] [facility] [place] [address], [facility] Nucleated RBC/100 WBC (Bld) [Ratio] 0 % Normal 0-0 [facility] Comment on above: Order Comment: No: D o not add to previous draw Performed By: #### 5 0608 #### [facility] [address] [facility] [place] [address], [facility] [place] PLAT CNT 165 10*3/uL Normal 150-400 [facility] Comment on above: Order Comment: No: D o not add to previous draw Performed By: #### 5 0608 #### [facility] [address] [place] [address], [facility] RBC (Bld) [#/Vol] 4.17 10*6/uL Low 4.20-5.70 [facility] Comment on above: Order Comment: No: D o not add to previous draw Performed By: #### 5 0608 #### [facility] [address] [facility] [place] [address], [facility] WBC (Bld) [#/Vol] 8.33 10*3/uL Normal 4.00-10.60 [facility] Comment on above: Order Comment: No: D o not add to previous draw Performed By: #### 5 0608 #### [facility] [address] [facility] [place] [address], [facility] CREATININE BLOODon 2 Creatinine [Mass/Vol] 0.82 mg/dL Normal 0.70-1.30 [facility] Comment on above: Order Comment: No: D o not add to previous draw Performed By: #### 2 5656 #### [facility] [address] GFR/1.73 sq M.predicted among non-blacks MDRD (S/P/Bld) [Vol rate/Area] mL/min/{1.73_m2} Normal >60 [facility] Comment on above: Order Comment: No: D o not add to previous draw Result Comment: [facility]'s estimated glomerular filtration rate (eGFR) will no [...] individuals. Performed By: #### 2 5656 #### [facility] [address] Cardiovascular Lab Reporton 12-29-2021 Cardiovascular Lab Report [facility] Patient Name: Marcella [facility] Shahrazd MR #: [id number] Department of Physician: Adeline Carlos M.D. Division of Service Date: 12/28/2021 Cardiology Birthdate: 1935 Adult Cardiovascular Room #: 3AB [id number] [place] [address] Cardiovascular Laboratory Report FINAL IMPRESSIONS: 1. 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 Sharif in the [place] office in the next 2-4 weeks. 7. Follow up with Dr. Melvin as scheduled. PROCEDURES: Ultrasound-guided access to the right common femoral artery, limited femoral angiography, bilateral selective coronary angiography, angiography of internal mammary artery graft, angiography of the saphenous vein graft, placement of a 6-Swedish MynxGrip closure device. METHODS: After risks, benefits, [...] was performed. This was upsized to a 6-Swedish 11 cm sheath. Bilateral selective coronary angiography [...] the procedure. All catheters were removed. A 6-Swedish MynxGrip closure device was deployed per protocol [...] marginals. Distal filling is seen into the tatitlek obtuse marginal via saphenous vein graft. Just [...] patent (more content not included)... Normal [facility] TROPONIN-Ion 12-28-2021 Troponin I.cardiac [Mass/Vol] 0.09 ng/mL High 0.00-0.04 [facility] Comment on above: Order Comment: No: D o not add to previous draw Result Comment: REFE RENCE RANGES: 0.00 - 0.04 ng/ml NORMAL 0.05 - 0.50 ng/ml INDETERMINATE > 0.50 ng/ml CONSISTENT WITH AN M.I. Performed By: #### 3 5200 #### [facility] [address] [facility] [place] [address], [facility] CBC AUTO DIFFon 12-26-2021 BASO # 0.0 103/ul Normal 0.0-0.1 [facility] Comment on above: Performed By: #### C BC #### [facility] [address] [address] [address] Gricel Busch Basophils/100 WBC (Bld) 0.6 % Normal 0.2-2.0 [facility] Comment on above: Performed By: #### C BC #### [facility] [address] [place] [address] Dr. Gricel Busch EO # 0.1 103/ul Normal 0.0-0.7 [facility] Comment on above: Performed By: #### C BC #### [facility] [address] [place] [address] Dr. Gricel Busch Eosinophils/100 WBC (Bld) 1.8 % Normal 0.9-7.0 [facility] Comment on above: Performed By: #### C BC #### [facility] [address] [place] [address] Dr. Gricel Busch Erythrocyte distribution width (RBC) [Ratio] 13.1 % Normal 11.0-15.0 [facility] Comment on above: Performed By: #### C BC #### [facility] [address] [place] [address] Dr. Gricel Busch Hematocrit (Bld) [Volume fraction] 42.4 % Normal 42.0-54.0 [facility] Comment on above: Performed By: #### C BC #### [facility] [address] [place] [address] Dr. Gricel Busch Hemoglobin (Bld) [Mass/Vol] 13.9 g/dL Critically low 14.0-18.0 [facility] Comment on above: Performed By: #### C BC #### [facility] [address] [place] [address] Dr. Gricel Busch IG # 0.03 10e3/ul Normal 0.00-0.03 [facility] Comment on above: Performed By: #### C BC #### [facility] [address] [place] [address] Dr. Gricel Busch IG % 0.4 % Normal 0.0-0.5 [facility] Comment on above: Performed By: #### C BC #### [facility] [address] [place] [address] Dr. Gricel Busch LYMPH # 1.2 103/ul Normal 1.2-3.8 [facility] Comment on above: Performed By: #### C BC #### [facility] [address] [place] [address] Dr. Gricel Busch Lymphocytes/100 WBC (Bld) 16.9 % Critically low 20.5-60.0 [facility] Comment on above: Performed By: #### C BC #### [facility] [address] [place] [address] Dr. Gricel Busch MANUAL DIFF REQ NO Normal [facility] Comment on above: Performed By: #### C BC #### [facility] [address] [place] [address] Dr. Gricel Busch MCH (RBC) [Entitic mass] 31.3 pg Normal 25.9-34.0 [facility] Comment on above: Performed By: #### C BC #### [facility] [address] [place] [address] Dr. Gricel Busch MCHC (RBC) [Mass/Vol] 32.8 g/dL Normal 29.9-35.2 [facility] Comment on above: Performed By: #### C BC #### [facility] [address] [place] [address] Dr. Gricel Busch MCV (RBC) [Entitic vol] 95.5 fL Critically high 80.0-94.0 [facility] Comment on above: Performed By: #### C BC #### [facility] [address] [place] [address] Dr. Gricel Busch MONO # 0.8 103/ul Normal 0.3-0.8 [facility] Comment on above: Performed By: #### C BC #### [facility] [address] [place] [address] Dr. Gricel Busch Monocytes/100 WBC (Bld) 10.9 % Normal 1.7-12.0 [facility] Comment on above: Performed By: #### C BC #### [facility] [address] [place] [address] Dr. Gricel Busch NEUT # 4.9 103/ul Normal 1.4-6.5 [facility] Comment on above: Performed By: #### C BC #### [facility] [address] [address] [address] Gricel Busch Neutrophils/100 WBC (Bld) 69.4 % Normal 43.0-75.0 [facility] Comment on above: Performed By: #### C BC #### [facility] [address] [address] [address] Gricel Busch Platelet mean volume (Bld) [Entitic vol] 9.6 fL Normal 9.5-13.5 [facility] Comment on above: Performed By: #### C BC #### [facility] [address] [address] [address] Gricel Busch PLT 191 103/ul Normal 150-450 [facility] Comment on above: Performed By: #### C BC #### [facility] [address] [place] [address] Dr. Gricel Busch RBC 4.44 106/ul Critically low 4.70-6.10 [facility] Comment on above: Performed By: #### C BC #### [facility] [address] [address] [address] Gricel Busch WBC 7.1 103/ul Normal 4.0-11.0 [facility] Comment on above: Performed By: #### C BC #### [facility] [address] [address] [address] Gricel Busch Covid-19 PCR (CVDTB)on 12-12 SARS-CoV-2 (COVID-19) RNA NIR+probe Ql (Unsp spec) Not detected Normal NOT DETECTED [facility] Comment on above: Result Comment: This test is not yet approved or cleared by the [place] FDA. When there are no FDA-approved or cleared tests available, and other criteria are met, FDA can make tests available under an emergency access mechanism called an Emergency Use Authorization (EUA). The EUA for this test is supported by the [employer] of Health and Human Service's (HHS's) declaration [...] consistent with SARS-CoV-2. Performed By: #### [facility] #### [facility] [address] [place] [address] Dr. Gricel Busch PROF CHEM 8 (BAS METB)on Anion gap [Moles/Vol] 9.6 mmol/L Normal [facility] Comment on above: Performed By: #### B MP #### [facility] [address] [place] [address] Dr. Gricel Busch Calcium [Mass/Vol] 9.8 mg/dL Normal 8.5-10.1 [facility] Comment on above: Performed By: #### B MP #### [facility] [address] [place] [address] Dr. Gricel Busch Chloride [Moles/Vol] 102 mmol/L Normal 98-107 [facility] Comment on above: Performed By: #### B MP #### [facility] [address] [place] [address] Dr. Gricle Busch CO2 [Moles/Vol] 28.1 mmol/L Normal 21.0-32.0 [facility] Comment on above: Performed By: #### B MP #### [facility] [address] [place] [address] Dr. Gricel Busch Creatinine [Mass/Vol] 0.88 mg/dL Normal 0.70-1.30 [facility] Comment on above: Performed By: #### B MP #### [facility] [address] [place] [address] Dr. Gricel Busch EGFR-AF SALVADOREAN >60 Normal >=60 [facility] Comment on above: Performed By: #### B MP #### [facility] [address] [place] [address] Dr. Gricel Busch EGFR-NON AF SALVADOREAN >60 Normal >=60 [facility] Comment on above: Performed By: #### B MP #### [facility] [address] [address] [address] Gricel Busch Glucose [Mass/Vol] 101 mg/dL Normal 74-106 [facility] Comment on above: Performed By: #### B MP #### [facility] [address] [address] [address] Gricel Busch Potassium [Moles/Vol] 4.7 mmol/L Normal 3.5-5.1 [facility] Comment on above: Performed By: #### B MP #### [facility] [address] [address] [address] Gricel Busch Sodium [Moles/Vol] 135 mmol/L Critically low 136-145 [facility] Comment on above: Performed By: #### B MP #### [facility] [address] [address] [address] Gricel Busch Urea nitrogen [Mass/Vol] 12.0 mg/dL Normal 7.0-18.0 [facility] Comment on above: Performed By: #### B MP #### [facility] [address] [address] [address] Gricel Busch Urea nitrogen/Creatinine [Mass ratio] 13.6 mg/mg Normal [facility] Comment on above: Performed By: #### B MP #### [facility] [address] [place] [address] Dr. Gricel Busch ECHOCARDIO M/2D COMPLETEon 0 12-21-2021 ECHOCARDIO M/2D COMPLETE Patient: KINGSLEY NARANJO Exam Date: 12/21/2021 : 1935 Gender:M Ordering : DR JENNIFER MELVIN . Admission #: [id number] Family : Order #: [id number] CLICK HERE TO VIEW EXAM ECHOCARDIOGRAM REPORT [...] Daniels M.D. on 12/21/2021 at 19:28 Normal [facility] STRESS/REST MULTIon 12-20 SD STRESS/REST MULTI Patient: KINGSLEY NARANJO Exam Date: 12/20/2021 : 1935 Gender:M Ordering : DR JENNIFER MELVIN . Admission #: [id number] Family : Order #: [id number] CLICK HERE TO VIEW EXAM RADIOLOGY REPORT [...] Wheeler MD on 12/20/2021 at 14:18 Normal [facility] Encounters Encounter Date Encounter Type Care Provider Facility Start: 08-08-2023 End: 08-08-2023 ambulatory [facility] Start: 07-25-2023 End: 07-25-2023 ambulatory Not Available Start: 07-12-2023 End: 07-12-2023 ambulatory Not Available Start: 02-06-2023 End: 02-06-2023 ambulatory [facility] Start: 08-11-2022 End: 08-11-2022 ambulatory VINH GUZMAN [facility] Start: 07-28-2022 End: 07-28-2022 ambulatory CK NIXON [...] 12-28-2021 End: 12-29-2021 ambulatory DAI Anna TOYA Facility:[facility] Start: 12-26-2021 End: 12-27-[address] ADÁN SHARIF Facility:[facility] Start: 12-21-2021 End: 12-22-[address] JENNIFER MELVIN . Facility:[facility] Start: 12-20-2021 End: 12-21-[address] JENNIFER MELVIN . Facility: Payers Date Payer Category Payer Medicare [id number] 1960 Private Health Insurance [id number] 1935 Unknown [id number] 2.16.8 [id number] 1935 Unknown [id number] 2.16.84 [id number] 1935 Unknown [id number] 2.16.84 [id number] 1934 Unknown [id number] 2.16.84 [id number] 1934 Unknown [id number] 2.16.84 [id number] 1934 Unknown [id number] 2.16.84 [id number] 1934 Unknown [id number] 2.16.84 [id number] 1934 Unknown [id number] 2.16.84 [id number] 1934 Unknown [id number] 2.16.84 [id number] 1934 Unknown [id number] 2.16.84 [id number] 1934 Unknown [id number] 2.16.84 [id number] 1934 Unknown [id number] 2.16.84 [id number] 1934 Unknown [id number] 2.16.84 [id number] Clinical Notes 12-30-2021 to 08-08-2023 Note Date & Type Note Facility 08-08-2023 Note [facility] Cardiology Clinic Note Chief Complaint: Patient here [...] FINAL IMPRESSIONS: 1. 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 Sharif in the [place] office in the next 2-4 weeks. 7. Follow up with Dr. Melvin as scheduled. PROCEDURES: Ultrasound-guided access to the right common femoral artery, limited femoral angiography, bilateral selective coronary angiography, angiography of internal mammary artery graft, angiography of the saphenous vein graft, placement of a 6-Swedish MynxGrip closure device. Echocardiogram 12/2021: Global left ventricular systolic function is normal; EF 55 to 60%. Mild biatrial dilatation. Mild to moderate tricuspid regurgitati (more content not included)... [facility] 02-06-2023 Note [facility] Cardiology Clinic Note Chief Complaint: Patient here for 6 mo follow up CAD, hypertension, and hyperlipidemia. Had labs at the [facility] in September, and his PCP at the [facility] switched his statin to Crestor. He and [...] FINAL IMPRESSIONS: 1. 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 Sharif in the [place] office in the next 2-4 weeks. 7. Follow up with Dr. Melvin as scheduled. PROCEDURES: Ultrasound-guided access to the right common femoral artery, limited femoral angiography, bilateral selective coronary angiography, angiography of internal mammary artery graft, angiography of the saphenous vein graft, placement of a 6-Swedish MynxGrip closure device. Labs 09/18/2022: Total cholesterol 119, LDL 63, (more content not included)... [facility] 08-11-2022 Note Stable [facility] 08-11-2022 Note Lipid abnormalities are Currently well controlled continue simvastatin 40 mg daily [facility] 08-11-2022 Note Hypertension is well controlled 114/70 Continue amlodipine, coreg and imdur. [facility] 08-11-2022 Note [facility]TP CARDIOLOGY PROGR ESS NOTE [...] 12 months Assessment/Plan: Coronary artery disease involving tatitlek coronary artery of tatitlek heart without angina pectoris Goal-directed medical therapy [...] artery bypass graft Stable RTC 6 months [facility] 08-11-2022 Note Review of Systems All other systems reviewed and are negative. [facility] 08-11-2022 Note Goal-directed medica l therapy including aspirin, carvedilol, Imdur, simvastatin continue risk factor modifications- heart healthy diet, regular exercise as tolerated and continue all medications. Discussed with patient regarding uncontrolled diabetes and inflammatory processes, and concerns regarding his known coronary artery disease and recommendation to follow-up with endocrinology- Voiced agreement and understanding [facility] 05-23-2022 Note PROCEDURE: XR LSPINE MIN 4 [...] authenticated by: MACY MICHAEL Date: 2022-05-23 08:14 [facility] 05-23-2022 Note PROCEDURE: XR HIP LT [...] authenticated by: MACY MICHAEL Date: 2022-05-23 08:09 [facility] 12-30-2021 Note MR#: [id number] 2 [facility] Pt. Name: Kingsley Naranjo Admitted: 12/28/2021 Discharged: [...] as bypass graft angiography. Coronary angiogram showed tatitlek arteries left main is calcified but patent. [...] that there may be additional documentation from mo. Date Dict: 12/29/2021/12:08 Geo/Peterson Jensen MD Date Trans: 12/30/2021 09:11 A/jeanne [id number] cc: Jennifer Melvin M.D. [address], [facility] [id number] [facility] Summary Purpose Family History No Family History [...] and content) DATE CREATED AUTHOR 01/08/2022 [facility] DATE CREATED AUTHOR AUTHOR'S ORGANIZ ATION 08/06/2022 [facility] pital DATE CREATED AUTHOR AUTHOR'S ORGANIZ ATION 07/26/2023 [facility] DATE CREATED AUTHOR AUTHOR'S ORGANIZ ATION 08/09/2023 [facility] FOR RECORDS PERTAINING TO PATIENTS WHO [...] BE BASED ON THE PRIMARY CLINICAL RECORDS. [employer] [facility]. provides no warranty or guarantee of the accuracy or completeness of information in this document.
[2023-09-03 10:41] LABS: Alanine Aminotransferase 41 U/L (16-63); Albumin Globulin Ratio 1.2; Albumin Level 3.6 g/dL (3.4-5.0); Alkaline Phosphatase 69 U/L (46-116); Anion Gap 9.5; Aspartate Amino Transferase 27 U/L (15-37); BUN Creatinine Ratio 18.6; Bilirubin Total 0.8 mg/dL (0.2-1.0); Calcium 10.1 mg/dL (8.5-10.1); Carbon Dioxide 30.2 mmol/L (21.0-32.0); Chloride 102 mmol/L (98-107); Estimated GFR (African America >60 (>=60); Estimated GFR (Non-African Ame >60 (>=60); Globulin 2.9 g/dL; Glucose 93 mg/dL (74-106); INR 1.03; Partial Thromboplastin Time 28.5 sec (22.3-36.2); Potassium 4.7 mmol/L (3.5-5.1); Prothrombin Time 10.9 sec (9.0-11.6); Sodium 137 mmol/L (136-145); Total Protein 6.5 g/dL (6.4-8.2)
[2023-09-03 10:42] LABS: Bilirubin Urine NEGATIVE (NEGATIVE); Blood Urine LARGE (NEGATIVE); Clarity Urine CLEAR (CLEAR); Color Urine LT. YELLOW (YELLOW); Glucose Urine UA NEGATIVE (NEGATIVE); Ketones Urine NEGATIVE (NEGATIVE); Leukocyte Esterase Urine NEGATIVE (NEGATIVE); Nitrite Urine NEGATIVE (NEGATIVE); Protein Urine NEGATIVE (NEG/TRACE); Specific Gravity Urine 1.015 (1.005-1.025); Urobilinogen Urine 0.2 EU/dL (0.2-1.0); pH Urine 6.5 (5.0-9.0)
[2023-09-03 11:08] LABS: Bacteria Urine TRACE #/HPF (NONE SEEN); Mucus Urine NONE SEEN (NONE SEEN); Squamous Epithelial Cell Urine FEW #/LPF (NONE/RARE); WBC Urine 0-2 #/HPF (NONE SEEN)
[2023-09-03 11:09] LABS: Urine Culture Indicated ALREADY ORDERED
== END 2023-09-03 10:07 | disposition home or self-care (01) ==
LOC: LAB 10:07
PROVIDERS: PCP Family Medicine; Visit Provider Family Medicine
DX: R31.0 Gross hematuria (principal)
CPT/HCPCS: 36415; 80053; 81001; 85025; 85610; 85730; 87086

== ENCOUNTER 2023-10-13 13:10 | Emergency (ER) | payer OTHER, SELFPAY ==
[2023-10-13] VITALS (16 sets, daily range): BP systolic 134–180; BP diastolic 66–91; PULSE 76–91; TEMP 37.7; O2SAT 92–997; BMI 23.6
--- NOTE | 2023-10-13 13:17 | ECG_ITS ---
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
--- OUTSIDE RECORDS SUMMARY | 2023-10-13 13:24 | XMS_ITS | CCD ---
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 Name Role Phone TOYA, DAIAB A Attending Unavailable ELTAHAWY, DAIAB A Admitting Unavailable JENNIFER MELVIN Referring Unavailable DOUGY, JENNIFER Primary Care Unavailable HOY ., DR RODRIGUEZ [...] Unavailable HOY ., DR RODRIGUEZ Admvashti Unavailable ELTAHAWY, DR VALLEJO Consulting Unavailable HOY [...] Unavailable HOY ., DR RODRIGUEZ Admitting Unavailable Gay Wheeler Consulting Unavailable [facility] Consulting Unavailable HOY ., DR RODRIGUEZ Primary Care Unavailable CK NIXON Attending Unavailable [facility] N[facility]ON Admitting Unavailable [facility] N[facility]ON Consulting Unavailable HOY ., DR RODRIGUEZ Primary Care Unavailable CK NIXON Attending Unavailable [facility] NIXON Admitting Unavailable HOY ., DR RODRIGUEZ Consulting Unavailable DR JENNIFER COBIAN Primary Care Unavailable MEERA Bagley, DR RODRIGUEZ Attending Unavailable MEERA Bagley, DR RODRIGUEZ Admitting Unavailable Gay Wheeler Consulting Unavailable [facility], DR VALLEJO Consulting Unavailable VINH GUZMAN Attending Unavailable [facility] AD[facility]N Attending Unavailable [facility] ADÁN Attending Unavailable Problems Active Problems Problem Classification Problem Date Documented Da te Episodic/Chronic Cardiac dysrhythmias (1 source) Ventricular tachycardia; Translations: [VENTRICULAR TACHYCARDIA] Onset: 12-21-2021 Chronic 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 sources) 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; Translations: [Angina [...] 08-11-2022 Episodic Other aftercare (1 source) Other fpc (current) drug therapy; Translations: [OTH DETENTION CURRENT DRUG THERAPY] Onset: 12-27-2021 Episodic Results Test Name Value Interpretation Reference Range Facility Office Visiton 08-08-2023 Follow-up visit [id number] Fernie Naranjo D 1935 M Date Provider Department Center 08/08/2023 271ADÁN WILL ESPINOZA [facility] No family history on file Level of Service:31390 [place] OFFICE/OUTPATIENT ESTABLISHED LOW MDM 20 MIN Normal [facility] Office Visiton 02-06-2023 Follow-up visit [id number] Fernie Naranjo D 1935 M Date Provider Department Center 02/06/2023 271ADÁN WILL ESPINOZA [facility] No family history on file Level of Service:32691 [place] OFFICE/OUTPATIENT ESTABLISHED LOW MDM 20-29 MIN Normal [facility] Office Vis[facility] 08-11-2022 Follow-up visit [id number] Fernie Naranjo D 1935 M Date Provider Department Center 08/11/2022 VINH CLAY ESPINOZA [facility] No family history on file Level of Service:79680 [place] OFFICE/OUTPATIENT ESTABLISHED MOD MDM 30-39 MIN Reason for Visit and Comments: Follow-up [079499] - 6 mo f/u Medication Problem [65] - Dr. Melvin took him off of Amlodipine for 2 weeks due to constipation. However, it made no difference so far. Kingsley starts back on it tomorrow, August 12. Normal [facility] OCC BLD IMMUNO SCREENon 07-12 OCCULT BLOOD Negative Normal NEGATIVE [facility] Comment on above: Performed By: #### O BSCRN #### [facility] [address] [address] [address] Gricel Busch MRI LSPINE WO CONon [...] GAY WHEELER Date: 2022-06-09 09:46 Normal [facility] CT TSPINE WO CONon 2 CT TSPINE [...] MICHAEL Date: 2022-01-05 16:34 Normal [facility] CBC COMPLETE BLOOD COUNTon 0 12-29-2021 Erythrocyte distribution width (RBC) [Ratio] 13.4 % Normal 11.5-15.0 [facility] Comment on above: Order Comment: No: D o not add to previous draw Performed By: #### 5 0608 #### [facility] [address] Hematocrit (Bld) [Volume fraction] 38.5 % Low 39.0-50.0 [facility] Comment on above: Order Comment: No: D o not add to previous draw Performed By: #### 5 0608 #### [facility] [address] Hemoglobin (Bld) [Mass/Vol] 13.5 g/dL Normal 13.0-17.0 [facility] Comment on above: Order Comment: No: D o not add to previous draw Performed By: #### 5 0608 #### [facility] [address] [place] [address], [facility] MCH (RBC) [Entitic mass] 32.4 pg Normal 27.0-33.0 [facility] Comment on above: Order Comment: No: D o not add to previous draw Performed By: #### 5 0608 #### [facility] [address] [place] [address], [facility] MCHC (RBC) [Mass/Vol] 35.1 g/dL High 32.0-35.0 [facility] Comment on above: Order Comment: No: D o not add to previous draw Performed By: #### 5 0608 #### [facility] [address] [place] [address], [facility] MCV (RBC) [Entitic vol] 92.3 fL Normal 82.0-98.0 [facility] Comment on above: Order Comment: No: D o not add to previous draw Performed By: #### 5 0608 #### [facility] [address] [place] [address], [facility] Nucleated RBC/100 WBC (Bld) [Ratio] 0 % Normal 0-0 [facility] Comment on above: Order Comment: No: D o not add to previous draw Performed By: #### 5 0608 #### [facility] [address] [place] [address], [facility] PLAT CNT 165 10*3/uL Normal 150-400 The [facility] Comment on above: Order Comment: No: D o not add to previous draw Performed By: #### 5 0608 #### [facility] [address] [facility] [place] [place] [address], [facility] RBC (Bld) [#/Vol] 4.17 10*6/uL Low 4.20-5.70 The [facility] Comment on above: Order Comment: No: D o not add to previous draw Performed By: #### 5 0608 #### [facility] [address] [address], [facility] WBC (Bld) [#/Vol] 8.33 10*3/uL Normal 4.00-10.60 [facility] Comment on above: Order Comment: No: D o not add to previous draw Performed By: #### 5 0608 #### [facility] [address] [place] [address], [facility] CREATININE BLOODon 2 Creatinine [Mass/Vol] 0.82 mg/dL Normal 0.70-1.30 [facility] Comment on above: Order Comment: No: D o not add to previous draw Performed By: #### 2 5656 #### [address] GFR/1.73 sq M.predicted among non-blacks MDRD (S/P/Bld) [Vol rate/Area] mL/min/{1.73_m2} Normal >60 [facility] Comment on above: Order Comment: No: D o not add to previous draw Result Comment: [facility]'s estimated glomerular filtration rate (eGFR) will no [...] individuals. Performed By: #### 2 5656 #### [address] Cardiovascular Lab Reporton 12-29-2021 Cardiovascular Lab Report [facility] Patient Name: Kingsley Naranjo [facility] Shahrzad MR #: [id number] Department of Physician: Adeline Carlos M.D. Division of Service Date: 12/28/2021 Cardiology Birthdate: 1935 Adult Cardiovascular Room #: 3AB [id number] [address] Cardiovascular Laboratory Report FINAL IMPRESSIONS: 1. 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 6. Follow up with Dr. Pittman in the [place] office in the next 2-4 weeks. 7. Follow up with Dr. Melvin as scheduled. PROCEDURES: Ultrasound-guided access to the right common femoral artery, limited femoral angiography, bilateral selective coronary angiography, angiography of internal mammary artery graft, angiography of the saphenous vein graft, placement of a 6-Puerto Rican MynxGrip closure device. METHODS: After risks, benefits, [...] was performed. This was upsized to a 6-Puerto Rican 11 cm sheath. Bilateral selective coronary angiography [...] the procedure. All catheters were removed. A 6-[place] Rican MynxGrip closure device was deployed per protocol achieving optimal hemostasis. Overall, the patient tolerated the procedure well. There were no overt complications. [facility] in [facility] condition. FINDINGS: Hemodynamics. AO: [...] marginals. Distal filling is seen into the catawba obtuse marginal via saphenous vein graft. Just [...] patent (more content not included)... Normal [facility] TROPONIN-Ion 12-28-2021 Troponin I.cardiac [Mass/Vol] 0.09 ng/mL High 0.00-0.04 [facility] Comment on above: Order Comment: No: D o not add to previous draw Result Comment: REFE RENCE RANGES: 0.00 - 0.04 ng/ml NORMAL 0.05 - 0.50 ng/ml INDETERMINATE > 0.50 ng/ml CONSISTENT WITH AN M.I. Performed By: #### 3 5200 #### [facility] [address] [place] [address], [facility] CBC AUTO DIFFon 12-26-2021 BASO # 0.0 103/ul Normal 0.0-0.1 [facility] Comment on above: Performed By: #### C BC #### [facility] [address] [address] [address] Gricel Busch Basophils/100 WBC (Bld) 0.6 % Normal 0.2-2.0 [facility] Comment on above: Performed By: #### C BC #### [facility] [address] [place] [address] Dr. Gricel Busch EO # 0.1 103/ul Normal 0.0-0.7 [facility] Comment on above: Performed By: #### C BC #### [facility] [address] [place] [address] Dr. Gricel Busch Eosinophils/100 WBC (Bld) 1.8 % Normal 0.9-7.0 [facility] Comment on above: Performed By: #### C BC #### [facility] [address] [place] [address] Dr. Gricel Busch Erythrocyte distribution width (RBC) [Ratio] 13.1 % Normal 11.0-15.0 [facility] Comment on above: Performed By: #### C BC #### [facility] [address] [place] [address] Dr. Gricel Busch Hematocrit (Bld) [Volume fraction] 42.4 % Normal 42.0-54.0 [facility] Comment on above: Performed By: #### C BC #### [facility] [address] [place] [address] Dr. Gricel Busch Hemoglobin (Bld) [Mass/Vol] 13.9 g/dL Critically low 14.0-18.0 [facility] Comment on above: Performed By: #### C BC #### [facility] [address] [place] [address] Dr. Gricel Busch IG # 0.03 10e3/ul Normal 0.00-0.03 [facility] Comment on above: Performed By: #### C BC #### [facility] [address] [place] [address] Dr. Gricel Busch IG % 0.4 % Normal 0.0-0.5 [facility] Comment on above: Performed By: #### C BC #### [facility] [address] [place] [address] Dr. Gricel Busch LYMPH # 1.2 103/ul Normal 1.2-3.8 [facility] Comment on above: Performed By: #### C BC #### [facility] [address] [place] [address] Dr. Gricel Busch Lymphocytes/100 WBC (Bld) 16.9 % Critically low 20.5-60.0 [facility] Comment on above: Performed By: #### C BC #### [facility] [address] [place] [address] Dr. Gricel Busch MANUAL DIFF REQ NO Normal [facility] Comment on above: Performed By: #### C BC #### [facility] [address] [place] [address] Dr. Gricel Busch MCH (RBC) [Entitic mass] 31.3 pg Normal 25.9-34.0 [facility] Comment on above: Performed By: #### C BC #### [facility] [address] [place] [address] Dr. Gricel Busch MCHC (RBC) [Mass/Vol] 32.8 g/dL Normal 29.9-35.2 [facility] Comment on above: Performed By: #### C BC #### [facility] [address] [place] [address] Dr. Gricel Busch MCV (RBC) [Entitic vol] 95.5 fL Critically high 80.0-94.0 [facility] Comment on above: Performed By: #### C BC #### [facility] [address] [place] [address] Dr. Gricel Busch MONO # 0.8 103/ul Normal 0.3-0.8 [facility] Comment on above: Performed By: #### C BC #### [facility] [address] [place] [address] Dr. Gricel Busch Monocytes/100 WBC (Bld) 10.9 % Normal 1.7-12.0 [facility] Comment on above: Performed By: #### C BC #### [facility] [address] [place] [address] Dr. Gricel Busch NEUT # 4.9 103/ul Normal 1.4-6.5 [facility] Comment on above: Performed By: #### C BC #### [facility] [address] [address] [address] Gricel Busch Neutrophils/100 WBC (Bld) 69.4 % Normal 43.0-75.0 [facility] Comment on above: Performed By: #### C BC #### [facility] [address] [address] [address] Gricel Busch Platelet mean volume (Bld) [Entitic vol] 9.6 fL Normal 9.5-13.5 [facility] Comment on above: Performed By: #### C BC #### [facility] [address] [address] [address] Gricel Busch PLT 191 103/ul Normal 150-450 [facility] Comment on above: Performed By: #### C BC #### [facility] [address] [address] [address] Gricel Busch RBC 4.44 106/ul Critically low 4.70-6.10 [facility] Comment on above: Performed By: #### C BC #### [facility] [address] [address] [address] Gricel Busch WBC 7.1 103/ul Normal 4.0-11.0 [facility] Comment on above: Performed By: #### C BC #### [facility] [address] [place] [address] Dr. Gricel Busch [facility] 12-12 SARS-CoV-2 (COVID-19) RNA NIR+probe Ql (Unsp spec) Not detected Normal NOT DETECTED [facility] Comment on above: Result Comment: This test is not yet approved or cleared by the [place] FDA. When there are no FDA-approved or cleared tests available, and other criteria are met, FDA can make tests available under an emergency access mechanism called an Emergency Use Authorization (EUA). The EUA for this test is supported by the Disposal Plant Operator of Health and Human Service's (HHS's) declaration [...] consistent with SARS-CoV-2. Performed By: #### [facility] #### [facility] [address] [place] [address] Dr. Gricel Busch PROF CHEM 8 (BAS METB)on Anion gap [Moles/Vol] 9.6 mmol/L Normal [facility] Comment on above: Performed By: #### B MP #### [facility] [address] [place] [address] Dr. Gricel Busch Calcium [Mass/Vol] 9.8 mg/dL Normal 8.5-10.1 [facility] Comment on above: Performed By: #### B MP #### [facility] [address] [place] [address] Dr. Gricel Busch Chloride [Moles/Vol] 102 mmol/L Normal 98-107 [facility] Comment on above: Performed By: #### B MP #### [facility] [address] [place] [address] Dr. Gricel Busch CO2 [Moles/Vol] 28.1 mmol/L Normal 21.0-32.0 [facility] Comment on above: Performed By: #### B MP #### [facility] [address] [place] [address] Dr. Gricel Busch Creatinine [Mass/Vol] 0.88 mg/dL Normal 0.70-1.30 [facility] Comment on above: Performed By: #### B MP #### [facility] [address] [place] [address] Dr. Gricel Busch EGFR-AF PORTUGUESE >60 Normal >=60 [facility] Comment on above: Performed By: #### B MP #### [facility] [address] [place], [place] [id number] Dr. Gricel Busch EGFR-NON AF PORTUGUESE >60 Normal >=60 [facility] Comment on above: Performed By: #### B MP #### [facility] [address] [address] [address] Gricel Busch Glucose [Mass/Vol] 101 mg/dL Normal 74-106 [facility] Comment on above: Performed By: #### B MP #### [facility] [address] [address] [address] Gricel Busch Potassium [Moles/Vol] 4.7 mmol/L Normal 3.5-5.1 [facility] Comment on above: Performed By: #### B MP #### [facility] [address] [address] [address] Gricel Busch Sodium [Moles/Vol] 135 mmol/L Critically low 136-145 [facility] Comment on above: Performed By: #### B MP #### [facility] [address] [address] [address] Gricel Busch Urea nitrogen [Mass/Vol] 12.0 mg/dL Normal 7.0-18.0 [facility] Comment on above: Performed By: #### B MP #### [facility] [address] [address] [address] Gricel Busch Urea nitrogen/Creatinine [Mass ratio] 13.6 mg/mg Normal [facility] Comment on above: Performed By: #### B MP #### [facility] [address] [place] [address] Dr. Gricel Busch ECHOCARDIO M/2D COMPLETEon 0 12-21-2021 ECHOCARDIO M/2D COMPLETE Patient: KINGSLEY NARANJO Exam Date: 12/21/2021 : 1935 Gender:M Ordering : DR JENNIFER MELVIN . Admission #: [id number] Family : Order #: [id number] CLICK HERE TO VIEW EXAM ECHOCARDIOGRAM REPORT [...] Daniels M.D. on 12/21/2021 at 19:28 Normal [facility] STRESS/REST MULTIon 12-20 [facility] STRESS/REST MULTI Patient: KINGSLEY NARANJO Exam Date: 12/20/2021 : 1935 Gender:M Ordering : DR JENNIFER MELVIN . Admission #: [id number] Family : Order #: [id number] CLICK HERE TO VIEW EXAM RADIOLOGY REPORT [...] on 12/20/2021 at 14:18 Normal [facility] Encounters Encounter Date Encounter Type Care Provider Facility Start: 08-08-2023 End: 08-08-2023 ambulatory [facility] Start: 07-25-2023 End: 07-25-2023 ambulatory Not Available Start: 07-12-2023 End: 07-12-2023 ambulatory Not Available Start: 02-06-2023 End: 02-06-2023 ambulatory [facility] Start: 08-11-2022 End: 08-11-2022 ambulatory VINH GUZMAN [facility] Start: 07-28-2022 End: 07-28-2022 ambulatory CK NIXON Facility:[facility] Start: 07-26-2022 End: 07-26-2022 ambulatory CK NIXON Facility:[facility] Start: 06-09-2022 End: 06-10-[address] JENNIFER MELVIN . Facility:[facility] Start: 05-22-2022 End: 05-23-[address] JENNIFER MELVIN . Facility:[facility] Start: 05-14-2022 End: 06-02-[address] JENNIFER MELVNI . Facility:[facility] Start: 05-01-2022 End: 05-13-[address] JENNIFER MELVIN . Facility:[facility] Start: 01-05-2022 End: 01-06-[address] JENNIFER MELVIN . Facility: Start: 12-28-2021 End: 12-29-2021 ambulatory ADÁN PITTMAN Facility:[facility] Start: 12-26-2021 End: 12-27-[address] ADÁN PITTMAN Facility: Start: 12-21-2021 End: 12-22-[address] JENNIFER MELVIN . Facility:[facility] Start: 12-20-2021 End: 12-21-[address] JENNIFER MELVIN . Facility: Payers Date Payer Category Payer Medicare [id number] 1960 Private Health Insurance [id number] 1935 Unknown [id number] 2.16.8 [id number] 1935 Unknown [id number] 2.16.84 [id number] 1935 Unknown [id number] 2.16.84 [id number] 1934 Unknown [id number] 2.16.84 [id number] 1934 Unknown [id number] 2.16.84 [id number] 1934 Unknown [id number] 2.16.84 [id number] 1934 Unknown [id number] 2.16.84 [id number] 1934 Unknown [id number] 2.16.84 [id number] 1934 Unknown [id number] 2.16.84 [id number] 1934 Unknown [id number] 2.16.84 [id number] 1934 Unknown [id number] 2.16.84 [id number] 1934 Unknown [id number] 2.16.84 [id number] 1934 Unknown [id number] 2.16.84 [id number] Clinical Notes 12-30-2021 to 08-08-2023 Note Date & Type Note Facility 08-08-2023 Note [facility] Cardiology Clinic Note Chief Complaint: Patient [...] FINAL IMPRESSIONS: 1. 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 6. Follow up with Dr. Pittman in the [place] office in the next 2-4 weeks. 7. Follow up with Dr. Melvin as scheduled. PROCEDURES: Ultrasound-guided access to the right common femoral artery, limited femoral angiography, bilateral selective coronary angiography, angiography of internal mammary artery graft, angiography of the saphenous vein graft, placement of a 6-Puerto Rican MynxGrip closure device. Echocardiogram 12/2021: Global left ventricular systolic function is normal; EF 55 to 60%. Mild biatrial dilatation. Mild to moderate tricuspid regurgitati (more content not included)... [facility] 02-06-2023 Note [facility] Cardiology Clinic Note Chief Complaint: Patient here for 6 mo follow up CAD, hypertension, and hyperlipidemia. [facility], and his PCP at the [facility] switched his statin to Crestor. He and [...] FINAL IMPRESSIONS: 1. 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 6. Follow up with Dr. Pittman in the [place] office in the next 2-4 weeks. 7. Follow up with Dr. Melvin as scheduled. PROCEDURES: Ultrasound-guided access to the right common femoral artery, limited femoral angiography, bilateral selective coronary angiography, angiography of internal mammary artery graft, angiography of the saphenous vein graft, placement of a 6-Pu[place] Rican MynxGrip closure device. Labs 09/18/2022: Total cholesterol 119, LDL 63, (more content not included)... [facility] 08-11-2022 Note Stable [facility] 08-11-2022 Note Lipid abnormalities are Currently well controlled continue simvastatin 40 mg daily [facility] 08-11-2022 Note Hypertension is well controlled 114/70 Continue amlodipine, coreg and imdur. [facility] 08-11-2022 Note [facility] CARDIOLOGY PROGR ESS NOTE HPI: [place] D Marcella is a 86 y.o. 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 [facility] 08-11-2022 Note Goal-directed medica l therapy including aspirin, carvedilol, Imdur, simvastatin continue risk factor modifications- heart healthy diet, regular exercise as tolerated and continue all medications. Discussed with patient regarding uncontrolled diabetes and inflammatory processes, and concerns regarding his known coronary artery disease and recommendation to follow-up with endocrinology- Voiced agreement and understanding [facility] 05-23-2022 Note PROCEDURE: XR LSPINE MIN 4 [...] MACY MICHAEL Date: 2022-05-23 08:14 [facility] 05-23-2022 Note PROCEDURE: XR HIP LT [...] MACY MICHAEL Date: 2022-05-23 08:09 [facility] 12-30-2021 Note MR#: [id number] [facility] Pt. Name: Kingsley Naranjo Admitted: 12/28/2021 Discharged: 12/29/2021 Date of : 1935 Physician: Adán Pittman M.D. DISCHARGE SUMMARY PRIMARY ADMISSION DIAGNOSES: Elective [...] as bypass graft angiography. Coronary angiogram showed [place] arteries left main is calcified but patent. [...] abnormal thrill. The patient will follow Dr. Pittman in clinic on January 18. The patient is advised to give us a call in case if any new symptoms appear. Electronically Signed by: Adán Pittman M.D. 12/31/2021 02:19 P Adán Pittman M.D. I have reviewed this discharge summary and confirmed the resident's documentation. Please note that there may be additional documentation from [place]. Date Dict: 12/29/2021/12:08 P/Peterson Jensen MD Date Trans: 12/30/2021 09:11 A/jeanne TORREZ_JN:[id number] cc: Jennifer Melvin M.D. [address] [id number] [facility] Summary Purpose Family History No Family History [...] and content) DATE CREATED AUTHOR 01/08/[address] [facility] DATE CREATED AUTHOR AUTHOR'S ORGANIZ ATION 08/06/2022 [facility] DATE CREATED AUTHOR AUTHOR'S ORGANIZ ATION 07/26/2023 [facility] DATE CREATED AUTHOR AUTHOR'S ORGANIZ ATION 08/09/[address] [facility] FOR RECORDS PERTAINING TO PATIENTS WHO [...] BE BASED ON THE PRIMARY CLINICAL RECORDS. [facility]. provides no warranty or guarantee of the accuracy or completeness of information in this document.
--- NOTE | 2023-10-13 13:26 | ED_ITS ---
HPI HPI - Fall General Chief Complaint: Fall Stated Complaint: FALL/DIZZY Time Seen by Provider: 10/13/23 13:20 Source: patient Mode of arrival: ambulance Limitations: no limitations History of Present Illness HPI Narrative: This patient was brought to us by paramedics. This patient was at home, he lives there alone and he fell today. He said he was up and down the stairs to the basement 6 times this morning doing his wash but when he came up to rest he went to sit down and he missed the chair, falling straight back. He is denies hitting his head or neck. But he said he was so weak he could not get up and had to use his cell phone to call for his family who then summoned the paramedics. He up to that stage was feeling pretty good. He has not had nausea vomiting fever or chills. He has been voiding every 2 hours and he says that is really not new. His meds have not changed recently. He says he has been able to take care of him already efficiently. Related Data Allergies Allergy/AdvReac Type Severity Reaction Status Date / Time No Known Drug Allergies Allergy Verified 10/13/23 13:15 Opioid HPI Opioid Management Most Recent Pain and Opioid Data: Last ED Pain Assessment 10/13/23 13:20 Exam Constitutional Vital Signs, click to edit/add: Last Vital Signs Temp 100 F 10/13/23 13:16 Pulse 78 10/13/23 14:50 Resp 19 10/13/23 14:50 BP 139/68 10/13/23 14:30 Pulse Ox 92 L 10/13/23 14:50 O2 Del Method Room Air 10/13/23 13:16 Course Vital Signs Vital signs: Vital Signs Temperature 100 F 10/13/23 13:16 Pulse Rate 89 10/13/23 13:16 Respiratory Rate 16 10/13/23 13:16 Blood Pressure 155/81 H 10/13/23 13:16 Pulse Oximetry 997 H 10/13/23 13:16 Oxygen Delivery Method Room Air 10/13/23 13:16 Temperature 100 F 10/13/23 13:16 Pulse Rate 78 10/13/23 14:50 Respiratory Rate 19 10/13/23 14:50 Blood Pressure 139/68 10/13/23 14:30 Pulse Oximetry 92 L 10/13/23 14:50 Oxygen Delivery Method Room Air 10/13/23 13:16 MDM - Fall MDM Narrative Medical decision making narrative: Patient's clinical exam is relatively benign. We are currently awaiting his CT of his lumbar spine. His laboratory testing and urinalysis do not suggest any underlying metabolic acute abnormality. Lab Data Labs: Lab Results 10/13/23 10/13/23 Range/Units 13:38 14:17 WBC 10.6 (4.0-11.0) 10^3/uL RBC 3.83 L (4.70-6.10) 10^6/uL Hgb 12.5 L (14.0-18.0) g/dL Hct 37.1 L (42.0-54.0) % MCV 96.9 H (80.0-94.0) fL MCH 32.6 (25.9-34.0) pg MCHC 33.7 (29.9-35.2) g/dL RDW 13.5 (11.0-15.0) % Plt Count 122 L (150-450) 10^3/uL MPV 9.9 (9.5-13.5) fL Seg Neuts % (Manual) 80.0 Band Neutrophils % 5.0 (0-5) % Lymphocytes % (Manual) 4.0 L (20.5-60.0) % Monocytes % (Manual) 9.0 (1.7-12.0) % Eosinophils % (Manual) 2.0 (0.9-7.0) % Basophils % (Manual) 0.0 L (0.2-2.0) % Neutrophils # (Manual) 8.48 H (1.4-6.5) 10^3/uL Band Neutrophils # 0.5 H (0.0-0.3) 10^3/uL Lymphocytes # (Manual) 0.42 L (1.20-3.80) 10^3/uL Monocytes # (Manual) 0.95 H (0.30-0.80) 10^3/uL Eosinophils # (Manual) 0.21 (0.00-0.70) 10^3/uL Basophils # (Manual) 0.00 (0.00-0.10) 10^3/uL Sodium 130 L (136-145) mmol/L Potassium 4.3 (3.5-5.1) mmol/L Chloride 100 (98-107) mmol/L Carbon Dioxide 24.6 (21.0-32.0) mmol/L Anion Gap 9.7 BUN 21.0 H (7.0-18.0) mg/dL Creatinine 0.91 (0.70-1.30) mg/dL Est GFR ( Amer) >60 (>=60) Est GFR (Non-Af Amer) >60 (>=60) BUN/Creatinine Ratio 23.1 Glucose 114 H (74-106) mg/dL Lactate 1.3 (0.4-2.0) mmol/L Calcium 9.1 (8.5-10.1) mg/dL Total Bilirubin 0.7 (0.2-1.0) mg/dL AST 31 (15-37) U/L ALT 41 (16-63) U/L Alkaline Phosphatase 67 (46-116) U/L Troponin I High Sens 12.9 (4.0-76.1) pg/mL Total Protein 6.1 L (6.4-8.2) g/dL Albumin 3.3 L (3.4-5.0) g/dL Globulin 2.8 g/dL Albumin/Globulin Ratio 1.2 Urine Color Yellow (YELLOW) Urine Clarity Clear (CLEAR) Urine pH 7.0 (5.0-9.0) Ur Specific [place] 1.015 (1.005-1.025) Urine Protein Negative (NEG/TRACE) mg/dL Urine Glucose (UA) Negative (NEGATIVE) mg/dL Urine Ketones Negative (NEGATIVE) mg/dL Urine Occult Blood Large A (NEGATIVE) Urine Nitrite Negative (NEGATIVE) Urine Bilirubin Negative (NEGATIVE) Urine Urobilinogen 0.2 (0.2-1.0) EU/dL Ur Leukocyte Esterase Negative (NEGATIVE) Urine RBC 20-50 A (0-2) #/HPF Urine WBC 0-2 A (NONE SEEN) #/HPF Ur Squamous Epith Cells Rare (NONE/RARE) #/LPF Urine Crystals None seen (None Seen) #/HPF Urine Bacteria Trace A (NONE SEEN) #/HPF Urine Casts None seen (NONE SEEN) #/LPF Urine Mucus None seen (NONE SEEN) Ur Culture Indicated? No Discharge Plan Discharge Stand Alone Forms: Portal Instructions Chief Complaint: Fall Clinical Impression: Lumbar contusion Patient Disposition: Home, Self-Care Time of Disposition Decision: 15:39 Print Language: Luxembourger Additional Instructions: May use simple analgesics and gnka-jug-kemwjle meds as needed. Ice to bruised area for couple days Referrals: Tucker Melvin MD [Primary Care Provider] - 1 week
--- NOTE | 2023-10-13 13:27 | CT_ITS ---
[address] [address] Patient Name: KINGSLEY JENNINGS MRN: [id number] date: 1935 Sex: M Assigned Patient Location: Current Patient Location: Accession/Order Number: [id number] Exam Date: 10/13/2023 14:00 Report Date: 10/13/2023 18:26 At the request of: DAJUAN TSE Procedure: CT lumbar spine wo con CT LUMBAR SPINE WITHOUT CONTRAST, 10/13/2023. HISTORY: Low back pain. Fall. Back pain. COMPARISON: CT lumbar spine, 12/15/2017. TECHNIQUE: Noncontrast axial CT images were obtained through the lumbar spine. Reconstructions were obtained in the sagittal and coronal planes. Dose reduction techniques were achieved by using automated exposure control and/or adjustment of mA and/or kV according to patient size and/or use of iterative reconstruction technique. FINDINGS: Spondylolysis at L5 stable. Grade 1 spondylolisthesis at L5-S1 measures approximately 2 mm and is stable. No acute compression fracture. Vertebral body heights are normal. No suspicious osseous lesion. The posterior elements are intact. Transverse processes are intact. L5-S1, spondylolysis with mild grade 1 spondylolisthesis is stable. Severe degenerative disc disease with mild vacuum disc phenomenon stable. No spinal canal stenosis. Mild foraminal narrowing bilaterally. L4-L5, no spinal stenosis or foraminal narrowing. L3-L4, mild degenerative disc disease. Mild disc bulge. Disc bulge results in mild spinal stenosis. No foraminal narrowing. L2-L3, mild degenerative disc disease. No spinal stenosis or foraminal narrowing. L1-L2, no spinal stenosis or foraminal narrowing. No paraspinal masses. No paraspinal soft tissue swelling. No acute sacral fracture. CT/CT lumbar spine wo con IMPRESSION: 1. Stable CT of the lumbar spine. No acute lumbar spine fracture. 2. 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 Severe degenerative disc disease at this level. No spinal stenosis. Mild bilateral foraminal narrowing. 3. Disc bulge at L3-L4 results in mild spinal stenosis which is stable. Electronically authenticated by: MAGGY ACUÑA Date: 10/13/2023 18:26
--- NOTE | 2023-10-13 13:27 | XR_ITS ---
The [address] [address] Patient Name: KINGSLEY JENNINGS MRN: [id number] date: 1935 Sex: M Assigned Patient Location: ER Current Patient Location: ER Accession/Order Number: [id number] Exam Date: 10/13/2023 13:46 Report Date: 10/13/2023 14:20 At the request of: DAJUAN TSE Procedure: XR chest 1V EXAM: Chest X-ray HISTORY: . Weakness . COMPARISON: None. TECHNIQUE: Single view of the chest FINDINGS: Heart and vascularity are unremarkable. Lungs are free of focal infiltrates. Atherosclerotic changes of the thoracic aorta are noted. Median sternotomy sutures are noted. EKG leads overlie the chest. XR/XR chest 1V IMPRESSION: No acute heart or lung disease identified. Electronically authenticated by: GAY SHINE Date: 10/13/2023 14:20
[2023-10-13 13:47] LABS: Hematocrit 37.1 % (42.0-54.0); Hemoglobin 12.5 g/dL (14.0-18.0); Mean Corpuscular HGB Conc 33.7 g/dL (29.9-35.2); Mean Corpuscular Hemoglobin 32.6 pg (25.9-34.0); Mean Corpuscular Volume 96.9 fL (80.0-94.0); Mean Platelet Volume 9.9 fL (9.5-13.5); Platelet Count 122 10^3/uL (150-450); Red Blood Count 3.83 10^6/uL (4.70-6.10); Red Cell Distribution Width 13.5 % (11.0-15.0); White Blood Count 10.6 10^3/uL (4.0-11.0)
[2023-10-13 14:02] LABS: Band Neutrophils Absolute 0.5 10^3/uL (0.0-0.3); Eosinophils Absolute Manual 0.21 10^3/uL (0.00-0.70); Lymphocytes Absolute Manual 0.42 10^3/uL (1.20-3.80); Monocytes Absolute Manual 0.95 10^3/uL (0.30-0.80); Segmented Neut Absolute Manual 8.48 10^3/uL (1.4-6.5)
[2023-10-13 14:05] LABS: Anion Gap 9.7
[2023-10-13 14:07] LABS: Alanine Aminotransferase 41 U/L (16-63); Albumin Globulin Ratio 1.2; Albumin Level 3.3 g/dL (3.4-5.0); Alkaline Phosphatase 67 U/L (46-116); Aspartate Amino Transferase 31 U/L (15-37); BUN Creatinine Ratio 23.1; Bilirubin Total 0.7 mg/dL (0.2-1.0); Calcium 9.1 mg/dL (8.5-10.1); Carbon Dioxide 24.6 mmol/L (21.0-32.0); Chloride 100 mmol/L (98-107); Estimated GFR (African America >60 (>=60); Estimated GFR (Non-African Ame >60 (>=60); Globulin 2.8 g/dL; Glucose 114 mg/dL (74-106); Lactate/Lactic Acid 1.3 mmol/L (0.4-2.0); Potassium 4.3 mmol/L (3.5-5.1); Sodium 130 mmol/L (136-145); Total Protein 6.1 g/dL (6.4-8.2); Troponin I High Sensitivity 12.9 pg/mL (4.0-76.1)
[2023-10-13 14:24] LABS: Bilirubin Urine NEGATIVE (NEGATIVE); Blood Urine LARGE (NEGATIVE); Clarity Urine CLEAR (CLEAR); Color Urine YELLOW (YELLOW); Glucose Urine UA NEGATIVE (NEGATIVE); Ketones Urine NEGATIVE (NEGATIVE); Leukocyte Esterase Urine NEGATIVE (NEGATIVE); Nitrite Urine NEGATIVE (NEGATIVE); Protein Urine NEGATIVE (NEG/TRACE); Specific Gravity Urine 1.015 (1.005-1.025); Urine Microscopic Indicated YES; Urobilinogen Urine 0.2 EU/dL (0.2-1.0)
[2023-10-13 14:30] LABS: WBC Urine 0-2 #/HPF (NONE SEEN)
[2023-10-13 14:31] LABS: Bacteria Urine TRACE #/HPF (NONE SEEN); Cast Seen? NONE SEEN #/LPF (NONE SEEN); Crystals Seen? None Seen #/HPF (None Seen); Mucus Urine NONE SEEN (NONE SEEN); RBC Urine 20-50 #/HPF (0-2); Squamous Epithelial Cell Urine RARE #/LPF (NONE/RARE); Urine Culture Indicated NO
== END 2023-10-13 15:58 | disposition home or self-care (01) ==
PROVIDERS: Emergency Provider Emergency Medicine Emergency Medical Services; PCP Family Medicine
DX: S30.0XXA Contusion of lower back and pelvis, initial encounter (principal); W19.XXXA Unspecified fall, initial encounter
CPT/HCPCS: 36415; 71045; 72131; 80053; 81001; 83605; 84484; 85007; 85027; 93005; 99285

== ENCOUNTER 2023-10-23 09:47 | Outpatient (RCR) | payer MEDICARE, OTHER, SELFPAY | END 2023-11-09 16:17 | disposition home or self-care (01) | LOC: PT 09:47 | PROVIDERS: PCP Family Medicine; Visit Provider Family Medicine | DX: M54.16 Radiculopathy, lumbar region (principal); R29.3 Abnormal posture | CPT/HCPCS: 97012; 97110; 97161 ==

== ENCOUNTER 2023-11-22 07:52 | Outpatient (OUT) | payer MEDICARE, OTHER, SELFPAY ==
[2023-11-22 08:38] LABS: Basophils Absolute Auto 0.1 10^3/uL (0.0-0.1); Eosinophils Absolute Auto 0.2 10^3/uL (0.0-0.7); Eosinophils Percent Auto 4.7 % (0.9-7.0); Hematocrit 38.8 % (42.0-54.0); Hemoglobin 13.2 g/dL (14.0-18.0); Immature Granulocytes Abs Auto 0.02 10^3/uL (0.00-0.03); Immature Granulocytes Pct Auto 0.4 % (0.0-0.5); Lymphocytes Absolute Auto 1.1 10^3/uL (1.2-3.8); Lymphocytes Percent Auto 23.2 % (20.5-60.0); Mean Corpuscular Hemoglobin 32.7 pg (25.9-34.0); Mean Platelet Volume 9.9 fL (9.5-13.5); Monocytes Absolute Auto 0.6 10^3/uL (0.3-0.8); Monocytes Percent Auto 12.5 % (1.7-12.0); Neutrophils Absolute Auto 2.8 10^3/uL (1.4-6.5); Neutrophils Percent Auto 58.2 % (43.0-75.0); Platelet Count 160 10^3/uL (150-450); Red Blood Count 4.04 10^6/uL (4.70-6.10); Red Cell Distribution Width 13.2 % (11.0-15.0); White Blood Count 4.9 10^3/uL (4.0-11.0)
[2023-11-22 08:59] LABS: INR 1.07; Prothrombin Time 11.3 sec (9.0-11.6)
[2023-11-22 09:47] LABS: Free T4 0.95 ng/dL (0.76-1.46)
[2023-11-22 10:57] LABS: Alanine Aminotransferase 35 U/L (16-63); Albumin Globulin Ratio 1.3; Albumin Level 3.4 g/dL (3.4-5.0); Alkaline Phosphatase 63 U/L (46-116); Anion Gap 9.5; Aspartate Amino Transferase 25 U/L (15-37); BUN Creatinine Ratio 21.7; Calcium 9.6 mg/dL (8.5-10.1); Carbon Dioxide 25.9 mmol/L (21.0-32.0); Chloride 103 mmol/L (98-107); Chol HDL Ratio 1.9; Cholesterol 121 mg/dL (<=200); Estimated GFR (African America >60 (>=60); Estimated GFR (Non-African Ame >60 (>=60); Globulin 2.6 g/dL; Glucose 93 mg/dL (74-106); HDL Cholesterol 65 mg/dL (40-60); Potassium 4.4 mmol/L (3.5-5.1); Sodium 134 mmol/L (136-145); Thyroid Stimulating Hormone 1.778 uIU/mL (0.358-3.740); Triglycerides 48 mg/dL (<=150); VLDL CHOLESTEROL 9.6 mg/dL
== END 2023-11-22 07:53 | disposition home or self-care (01) ==
LOC: LAB 07:56
PROVIDERS: PCP Family Medicine; Visit Provider Family Medicine
DX: R31.9 Hematuria, unspecified (principal); I10 Essential (primary) hypertension; R53.83 Other fatigue; E78.2 Mixed hyperlipidemia
CPT/HCPCS: 36415; 80053; 80061; 84439; 84443; 85025; 85610; 85730

== ENCOUNTER 2023-11-27 08:54 | Outpatient (OUT) | payer MEDICARE, OTHER, SELFPAY ==
--- NOTE | 2023-11-27 09:01 | US_ITS ---
[address] [address] Patient Name: KINGSLEY JENNINGS MRN: [id number] date: 1935 Sex: M Assigned Patient Location: US Current Patient Location: US Accession/Order Number: [id number] Exam Date: 11/27/2023 09:04 Report Date: 11/27/2023 11:16 At the request of: JENNIFER ESTES Procedure: US renal bladder EXAMINATION: US renal bladder HISTORY: Hematuria R31.9 COMPARISON: No relevant comparison available. TECHNIQUE: Ultrasound examination was performed of the bladder. FINDINGS: Right Kidney: Normal in size, contour and echotexture. The cortex measures 0.9 cm. Subcentimeter echogenic foci, nonobstructing nephrolithiasis. No solid cortical mass or hydronephrosis Height: 4.71 cm Length: 9.43 cm Width: 5.71 cm Left Kidney: Normal in size, contour and echotexture. The cortex measures 0.9 cm. Subcentimeter echogenic foci, nonobstructing nephrolithiasis. No solid cortical mass or hydronephrosis Height: 5.39 cm Length: 9.53 cm Width: 4.33 cm Urinary bladder: Prevoid volume 162 mL. Post void volume 20 mL. Heterogeneous lobular mass identified in the posterior urinary bladder measuring 3.6 x 2.6 x 1.9 cm Ureteral jets: Visualized bilaterally US/US renal bladder IMPRESSION: 3.6 cm urinary bladder mass. Direct visualization recommended Electronically authenticated by: GAY WHEELER Date: 11/27/2023 11:16
--- OUTSIDE RECORDS SUMMARY | 2023-11-27 09:12 | XMS_ITS | CCD ---
Author Organization [facility] CliniSyms Care Team Providers Care Orthodontic Laboratory Technician Name Role Phone DAI SHARIFAB A Attending Unavailable ELTAADÁN PHOENIX Admitting Unavailable JENNIFER MELVIN Referring Unavailable DOUGYJENNIFER [...] NIXON Admitting Unavailable CK NIXON Consulting Unavailable DOUGY ., DR RODRIGUEZ Primary Care Unavailable CK NIXON Attending Unavailable CK NIXON Admitting Unavailable HOY ., DR RODRIGUEZ Consulting Unavailable DR JENNIFER COBIAN Primary Care Unavailable MEERA Bagley, DR RODRIGUEZ Attending Unavailable MEERA Bagley, DR RODRIGUEZ Admitting Unavailable Gay Wheeler Consulting Unavailable [facility], DR VALLEJO Consulting Unavailable VINH GUZMAN Attending Unavailable [facility], ADÁN Attending Unavailable [facility], ADÁN Attending Unavailable Problems Active Problems Problem Classification Problem Date Documented Da te Episodic/Chronic Cardiac dysrhythmias (1 source) Ventricular tachycardia; Translations: [VENTRICULAR TACHYCARDIA] Onset: 12-21-2021 Chronic 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 sources) Atherosclerotic heart disease of [place] coronary artery without angina pectoris; Translations: [Angina [...] 08-11-2022 Episodic Other aftercare (1 source) Other detention (current) drug therapy; Translations: [OTH USP CURRENT DRUG THERAPY] Onset: 12-27-2021 Episodic Results Test Name Value Interpretation Reference Range Facility Office Visiton 08-08-2023 Follow-up visit [id number] Fernie Narajno 1935 M Date Provider Department Center 08/08/2023 271ADÁN WILL [facility] No family history on file Level of Service:49894 [place] OFFICE/OUTPATIENT ESTABLISHED LOW MDM 20 MIN Normal [facility] Office Visiton 02-06-2023 Follow-up visit [id number] Fernie Naranjo D 1935 M Date Provider Department Center 02/06/2023 271ADÁN [facility] No family history on file Level of Service:44874 [place] OFFICE/OUTPATIENT ESTABLISHED LOW MDM 20-29 MIN Normal [facility] Office Visiton 08-11-2022 Follow-up visit [id number] Fernie Naranjo D 1935 M Date Provider Department Center 08/11/2022 VINH CLAY ESPINO[facility] No family history on file Level of Service:10121 FL OFFICE/OUTPATIENT ESTABLISHED MOD MDM 30-39 MIN Reason for Visit and Comments: Follow-up [433519] - 6 mo f/u Medication Problem [65] - Dr. Melvin took him off of Amlodipine for 2 weeks due to constipation. However, it made no difference so far. Kingsley starts back on it tomorrow, August 12. Normal [facility] OCC BLD IMMUNO SCREENon 07-12 OCCULT BLOOD Negative Normal NEGATIVE [facility] Comment on above: Performed By: #### O BSCRN #### [facility] [address] [address] [address] Gricel Busch MRI LSPINE WO CONon [...] GAY WHEELER Date: 2022-06-09 09:46 Normal [facility] CT TSPINE WO CONon 2 CT TSPINE [...] by: MACY MICHAEL Date: 2022-01-05 16:34 Normal [facility] CBC COMPLETE BLOOD COUNTon 0 12-29-2021 Erythrocyte distribution width (RBC) [Ratio] 13.4 % Normal 11.5-15.0 [facility] Comment on above: Order Comment: No: D o not add to previous draw Performed By: #### 5 0608 #### [facility] [address] Hematocrit (Bld) [Volume fraction] 38.5 % Low 39.0-50.0 [facility] Comment on above: Order Comment: No: D o not add to previous draw Performed By: #### 5 0608 #### [facility] [address] [place] [address], [facility] Hemoglobin (Bld) [Mass/Vol] 13.5 g/dL Normal 13.0-17.0 [facility] Comment on above: Order Comment: No: D o not add to previous draw Performed By: #### 5 0608 #### [facility] [address] [place] [address], [facility] MCH (RBC) [Entitic mass] 32.4 pg Normal 27.0-33.0 The [facility] Comment on above: Order Comment: No: D o not add to previous draw Performed By: #### 5 0608 #### [facility] [address] [place] [address], [facility] MCHC (RBC) [Mass/Vol] 35.1 g/dL High 32.0-35.0 [facility] Comment on above: Order Comment: No: D o not add to previous draw Performed By: #### 5 0608 #### [facility] [address] [place] [address], [facility] MCV (RBC) [Entitic vol] 92.3 fL Normal 82.0-98.0 [facility] Comment on above: Order Comment: No: D o not add to previous draw Performed By: #### 5 0608 #### [facility] [address] [place] [address], [facility] Nucleated RBC/100 WBC (Bld) [Ratio] 0 % Normal 0-0 [facility] Comment on above: Order Comment: No: D o not add to previous draw Performed By: #### 5 0608 #### [facility] [address] [place] [address], [facility] PLAT CNT 165 10*3/uL Normal 150-400 The [facility] Comment on above: Order Comment: No: D o not add to previous draw Performed By: #### 5 0608 #### [facility] [address] [place] [place] [address], [facility] RBC (Bld) [#/Vol] 4.17 10*6/uL Low 4.20-5.70 The [facility] Comment on above: Order Comment: No: D o not add to previous draw Performed By: #### 5 0608 #### [facility] [address] [place] [place] [address], [facility] WBC (Bld) [#/Vol] 8.33 10*3/uL Normal 4.00-10.60 The [facility] Comment on above: Order Comment: No: D o not add to previous draw Performed By: #### 5 0608 #### [facility] [address] [place] [address], [facility] CREATININE BLOODon 2 Creatinine [Mass/Vol] 0.82 mg/dL Normal 0.70-1.30 The [facility] Comment on above: Order Comment: No: D o not add to previous draw Performed By: #### 2 5656 #### [facility] [address] GFR/1.73 sq M.predicted among non-blacks MDRD (S/P/Bld) [Vol rate/Area] mL/min/{1.73_m2} Normal >60 [facility] Comment on above: Order Comment: No: D o not add to previous draw Result Comment: The [facility]'s estimated glomerular filtration rate (eGFR) will [...] individuals. Performed By: #### 2 5656 #### [facility] [address] Cardiovascular Lab Reporton 12-29-2021 Cardiovascular Lab Report [facility] Patient Name: Marcella [facility] Shahrzad MR #: [id number] Department of Physician: Adeline Carlos M.D. Division of Service Date: 12/28/2021 Cardiology Birthdate: 1935 Adult Cardiovascular Room #: [address]AB [id number] [address] Cardiovascular Laboratory Report FINAL IMPRESSIONS: 1. 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 Sharif in the [place] office in the next 2-4 weeks. 7. Follow up with Dr. Melvin as scheduled. PROCEDURES: Ultrasound-guided access to the right common femoral artery, limited femoral angiography, bilateral selective coronary angiography, angiography of internal mammary artery graft, angiography of the saphenous vein graft, placement of a 6-St Lucian MynxGrip closure device. METHODS: After risks, benefits, [...] was performed. This was upsized to a 6-St Lucian 11 cm sheath. Bilateral selective coronary angiography [...] the procedure. All catheters were removed. A 6-St Lucian MynxGrip closure device was deployed per protocol achieving optimal hemostasis. Overall, the patient tolerated the procedure well. There were no overt complications. [facility]. FINDINGS: Hemodynamics. AO: [...] marginals. Distal filling is seen into the [place] obtuse marginal via saphenous vein graft. Just [...] patent (more content not included)... Normal [facility] TROPONIN-Ion 12-28-2021 Troponin I.cardiac [Mass/Vol] 0.09 ng/mL High 0.00-0.04 [facility] Comment on above: Order Comment: No: D o not add to previous draw Result Comment: REFE RENCE RANGES: 0.00 - 0.04 ng/ml NORMAL 0.05 - 0.50 ng/ml INDETERMINATE > 0.50 ng/ml CONSISTENT WITH AN M.I. Performed By: #### 3 5200 #### [facility] [address] [place] [address], [facility] CBC AUTO DIFFon 12-26-2021 BASO # 0.0 103/ul Normal 0.0-0.1 [facility] Comment on above: Performed By: #### C BC #### [facility] [address] [address] [address] Gricel Busch Basophils/100 WBC (Bld) 0.6 % Normal 0.2-2.0 [facility] Comment on above: Performed By: #### C BC #### [facility] [address] [place] [address] Dr. Gricel Busch EO # 0.1 103/ul Normal 0.0-0.7 [facility] Comment on above: Performed By: #### C BC #### [facility] [address] [place] [address] Dr. Gricel Busch Eosinophils/100 WBC (Bld) 1.8 % Normal 0.9-7.0 [facility] Comment on above: Performed By: #### C BC #### [facility] [address] [place] [address] Dr. Gricel Busch Erythrocyte distribution width (RBC) [Ratio] 13.1 % Normal 11.0-15.0 [facility] Comment on above: Performed By: #### C BC #### [facility] [address] [place] [address] Dr. Gricel Busch Hematocrit (Bld) [Volume fraction] 42.4 % Normal 42.0-54.0 [facility] Comment on above: Performed By: #### C BC #### [facility] [address] [place] [address] Dr. Gricel Busch Hemoglobin (Bld) [Mass/Vol] 13.9 g/dL Critically low 14.0-18.0 [facility] Comment on above: Performed By: #### C BC #### [facility] [address] [place] [address] Dr. Gricel Busch IG # 0.03 10e3/ul Normal 0.00-0.03 [facility] Comment on above: Performed By: #### C BC #### [facility] [address] [place] [address] Dr. Gricel Busch IG % 0.4 % Normal 0.0-0.5 [facility] Comment on above: Performed By: #### C BC #### [facility] [address] [place] [address] Dr. Gricel Busch LYMPH # 1.2 103/ul Normal 1.2-3.8 [facility] Comment on above: Performed By: #### C BC #### [facility] [address] [place] [address] Dr. Gricel Busch Lymphocytes/100 WBC (Bld) 16.9 % Critically low 20.5-60.0 [facility] Comment on above: Performed By: #### C BC #### [facility] [address] [place] [address] Dr. Gricel Busch MANUAL DIFF REQ NO Normal [facility] Comment on above: Performed By: #### C BC #### [facility] [address] [place] [address] Dr. Gricel Busch MCH (RBC) [Entitic mass] 31.3 pg Normal 25.9-34.0 [facility] Comment on above: Performed By: #### C BC #### [facility] [address] [place] [address] Dr. Gricel Busch MCHC (RBC) [Mass/Vol] 32.8 g/dL Normal 29.9-35.2 [facility] Comment on above: Performed By: #### C BC #### [facility] [address] [place] [address] Dr. Gricel Busch MCV (RBC) [Entitic vol] 95.5 fL Critically high 80.0-94.0 [facility] Comment on above: Performed By: #### C BC #### [facility] [address] [place] [address] Dr. Gricel Busch MONO # 0.8 103/ul Normal 0.3-0.8 [facility] Comment on above: Performed By: #### C BC #### [facility] [address] [place] [address] Dr. Gricel Busch Monocytes/100 WBC (Bld) 10.9 % Normal 1.7-12.0 [facility] Comment on above: Performed By: #### C BC #### [facility] [address] [place] [address] Dr. Gricel Busch NEUT # 4.9 103/ul Normal 1.4-6.5 [facility] Comment on above: Performed By: #### C BC #### [facility] [address] [address] [address] Gricel Busch Neutrophils/100 WBC (Bld) 69.4 % Normal 43.0-75.0 [facility] Comment on above: Performed By: #### C BC #### [facility] [address] [address] [address] Gricel Busch Platelet mean volume (Bld) [Entitic vol] 9.6 fL Normal 9.5-13.5 [facility] Comment on above: Performed By: #### C BC #### [facility] [id number] Gricel Busch PLT 191 103/ul Normal 150-450 [facility] Comment on above: Performed By: #### C BC #### [facility] [address] [address] [address] Gricel Busch RBC 4.44 106/ul Critically low 4.70-6.10 [facility] Comment on above: Performed By: #### C BC #### [facility] [id number] Gricel Busch WBC 7.1 103/ul Normal 4.0-11.0 [facility] Comment on above: Performed By: #### C BC #### [facility] [address] [address] [address] Gricel Busch [facility]12 SARS-CoV-2 (COVID-19) RNA NIR+probe Ql (Unsp spec) Not detected Normal NOT DETECTED [facility] Comment on above: Result Comment: This test is not yet approved or cleared by the [place] FDA. When there are no FDA-approved or cleared tests available, and other criteria are met, FDA can make tests available under an emergency access mechanism called an Emergency Use Authorization (EUA). The EUA for this test is supported by the [employer] Supervisor of Health and Human Service's (HHS's) declaration [...] consistent with SARS-CoV-2. Performed By: #### C VDTB #### [facility] [address] [place] [address] Dr. Gricel Busch PROF CHEM 8 (BAS METB)on Anion gap [Moles/Vol] 9.6 mmol/L Normal [facility] Comment on above: Performed By: #### B MP #### [facility] [address] [place] [address] Dr. Gricel Busch Calcium [Mass/Vol] 9.8 mg/dL Normal 8.5-10.1 [facility] Comment on above: Performed By: #### B MP #### [facility] [address] [place] [address] Dr. Gricel Busch Chloride [Moles/Vol] 102 mmol/L Normal 98-107 [facility] Comment on above: Performed By: #### B MP #### [facility] [address] [place] [address] Dr. Gricel Busch CO2 [Moles/Vol] 28.1 mmol/L Normal 21.0-32.0 The [facility] Comment on above: Performed By: #### B MP #### [facility] [address] [place] [address] Dr. Gricel Busch Creatinine [Mass/Vol] 0.88 mg/dL Normal 0.70-1.30 [facility] Comment on above: Performed By: #### B MP #### [facility] [address] [place] [address] Dr. Gricel Busch EGFR-AF LIBYAN >60 Normal >=60 [facility] Comment on above: Performed By: #### B MP #### [facility] [address] [place] [address] Dr. Gricel Busch EGFR-NON AF LIBYAN >60 Normal >=60 [facility] Comment on above: Performed By: #### B MP #### [facility] [address] [address] [address] Gricel Busch Glucose [Mass/Vol] 101 mg/dL Normal 74-106 [facility] Comment on above: Performed By: #### B MP #### [facility] [address] [address] [address] Gricel Busch Potassium [Moles/Vol] 4.7 mmol/L Normal 3.5-5.1 [facility] Comment on above: Performed By: #### B MP #### [facility] [address] [address] [address] Gricel Busch Sodium [Moles/Vol] 135 mmol/L Critically low 136-[address] [facility] Comment on above: Performed By: #### B MP #### [facility] [address] [address] [address] Gricel Busch Urea nitrogen [Mass/Vol] 12.0 mg/dL Normal 7.0-18.0 [facility] Comment on above: Performed By: #### B MP #### [facility] [address] [address] [address] Gricel Busch Urea nitrogen/Creatinine [Mass ratio] 13.6 mg/mg Normal [facility] Comment on above: Performed By: #### B MP #### [facility] [address] [address] [address] Gricel Busch ECHOCARDIO M/2D COMPLETEon 0 12-21-2021 ECHOCARDIO M/2D COMPLETE Patient: KINGSLEY NARANJO Exam Date: 12/21/2021 : 1935 Gender:M Ordering : DR JENNIFER MELVIN . Admission #: [id number] Family : Order #: [id number] CLICK HERE TO VIEW EXAM ECHOCARDIOGRAM REPORT [...] Daniels M.D. on 12/21/2021 at 19:28 Normal [facility] STRESS/REST MULTIon 12-20 MO STRESS/REST MULTI Patient: KINGSLEY NARANJO Exam Date: 12/20/2021 : 1935 Gender:M Ordering : DR JENNIFER MELVIN . Admission #: [id number] Family : Order #: [id number] CLICK HERE TO VIEW EXAM RADIOLOGY REPORT [...] on 12/20/2021 at 14:09 Approved by: Gay Weheler MD on 12/20/2021 at 14:18 Normal [facility] Encounters Encounter Date Encounter Type Care Provider Facility Start: 08-08-2023 End: 08-08-2023 ambulatory [facility] Start: 07-25-2023 End: 07-25-2023 ambulatory Not Available Start: 07-12-2023 End: 07-12-2023 ambulatory Not Available Start: 02-06-2023 End: 02-06-2023 ambulatory [facility] Start: 08-11-2022 End: 08-11-2022 ambulatory VINH GUZMAN [facility] Start: 07-28-2022 End: 07-28-2022 ambulatory CK [...] Facility: Start: 12-28-2021 End: 12-29-2021 ambulatory ADÁN SHARIF Facility:[facility] Start: 12-26-2021 End: 12-27-[address] ADÁN SHARIF Facility: Start: 12-21-2021 End: 12-22-[address] JENNIFER MELVIN . Facility:[facility] Start: 12-20-2021 End: 12-21-[address] JENNIFER MELVIN . Facility: Payers Date Payer Category Payer Medicare [id number] 1960 Private Health Insurance [id number] 1935 Unknown [id number] 2.16.8 [id number] 1935 Unknown [id number] 2.16.84 [id number] 1935 Unknown [id number] 2.16.84 [id number] 1934 Unknown [id number] 2.16.84 [id number] 1934 Unknown [id number] 2.16.84 [id number] 1934 Unknown [id number] 2.16.84 [id number] 1934 Unknown [id number] 2.16.84 [id number] 1934 Unknown [id number] 2.16.84 [id number] 1934 Unknown [id number] 2.16.84 [id number] 1934 Unknown [id number] 2.16.84 [id number] 1934 Unknown [id number] 2.16.84 [id number] 1934 Unknown [id number] 2.16.84 [id number] 1934 Unknown [id number] 2.16.84 [id number] Clinical Notes 12-30-2021 to 08-08-2023 Note Date & Type Note Facility 08-08-2023 Note [facility] Cardiology Clinic Note Chief Complaint: [...] FINAL IMPRESSIONS: 1. 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 Sharif in the [place] office in the next 2-4 weeks. 7. Follow up with Dr. Melvin as scheduled. PROCEDURES: Ultrasound-guided access to the right common femoral artery, limited femoral angiography, bilateral selective coronary angiography, angiography of internal mammary artery graft, angiography of the saphenous vein graft, placement of a 6-St Lucian MynxGrip closure device. Echocardiogram 12/2021: Global left ventricular systolic function is normal; EF 55 to 60%. Mild biatrial dilatation. Mild to moderate tricuspid regurgitati (more content not included)... [facility] 02-06-2023 Note [facility] Cardiology Clinic Note Chief Complaint: Patient here for 6 mo follow up CAD, hypertension, and hyperlipidemia. Had labs at the [facility] in September, and his PCP at the [facility] switched his statin to Crestor. He and [...] FINAL IMPRESSIONS: 1. 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 Sharif in the [place] office in the next 2-4 weeks. 7. Follow up with Dr. Melvin as scheduled. PROCEDURES: Ultrasound-guided access to the right common femoral artery, limited femoral angiography, bilateral selective coronary angiography, angiography of internal mammary artery graft, angiography of the saphenous vein graft, placement of a 6-St Lucian MynxGrip closure device. Labs 09/18/2022: Total cholesterol 119, LDL 63, (more content not included)... [facility] 08-11-2022 Note Stable [facility] 08-11-2022 Note Lipid abnormalities are Currently well controlled continue simvastatin 40 mg daily [facility] 08-11-2022 Note Hypertension is well controlled 114/70 Continue amlodipine, coreg and imdur. [facility] 08-11-2022 Note [facility] CARDIOLOGY PROGR ESS NOTE HPI: Kingsley Naranjo is a 86 y.o. male here for Follow-up (6 mo f/u) and Medication Problem (Dr. Melvin took him off of Amlodipine for 2 weeks due to constipation. However, it made no difference so far. iKngsley starts back on it tomorrow, August 12.) [...] 12 months Assessment/Plan: Coronary artery disease involving [place] coronary artery of [place] heart without angina pectoris Goal-directed medical therapy [...] artery bypass graft Stable RTC 6 months [facility] 08-11-2022 Note Review of Systems All other systems reviewed and are negative. [facility] 08-11-2022 Note Goal-directed medica l therapy including aspirin, carvedilol, Imdur, simvastatin continue risk factor modifications- heart healthy diet, regular exercise as tolerated and continue all medications. Discussed with patient regarding uncontrolled diabetes and inflammatory processes, and concerns regarding his known coronary artery disease and recommendation to follow-up with endocrinology- Voiced agreement and understanding [facility] 05-23-2022 Note PROCEDURE: XR LSPINE MIN [...] authenticated by: MACY MICHAEL Date: 2022-05-23 08:14 [facility] 05-23-2022 Note PROCEDURE: XR HIP [...] authenticated by: MACY MICHAEL Date: 2022-05-23 08:09 [facility] 12-30-2021 Note MR#: [id number] [facility] Pt. Name: Kingsley Naranjo Admitted: 12/28/2021 [...] as bypass graft angiography. Coronary angiogram showed [place] arteries left main is calcified but patent. [...] that there may be additional documentation from [facility]. Date Dict: 12/29/2021/12:08 P/Peterson Jensen MD Date Trans: 12/30/2021 09:11 A/jeanne [id number] cc: Jennifer Melvin M.D. [address] [address] [facility] Summary Purpose Family History No Family [...] and content) DATE CREATED AUTHOR 01/08/2022 [facility] DATE CREATED AUTHOR AUTHOR'S ORGANIZ ATION 08/06/2022 [facility] DATE CREATED AUTHOR AUTHOR'S ORGANIZ ATION 07/26/2023 [facility] EPIC DATE CREATED AUTHOR AUTHOR'S ORGANIZ ATION 08/09/2023 [facility] FOR RECORDS PERTAINING TO PATIENTS WHO ARE [...] BE BASED ON THE PRIMARY CLINICAL RECORDS. [facility] [employer] provides no warranty or guarantee of the accuracy or completeness of information in this document.
== END 2023-11-27 08:55 | disposition home or self-care (01) ==
LOC: US 08:55
PROVIDERS: PCP Family Medicine; Visit Provider Family Medicine
DX: R31.9 Hematuria, unspecified (principal); N32.89 Other specified disorders of bladder; D49.4 Neoplasm of unspecified behavior of bladder
CPT/HCPCS: 76770

== ENCOUNTER 2023-12-26 11:56 | Outpatient (OUT) | payer MEDICARE, OTHER, SELFPAY ==
--- OUTSIDE RECORDS SUMMARY | 2023-12-26 12:01 | XMS_ITS | CCD ---
Author Organization [facility] Care Team Providers Care [employer] Name Role Phone ELTAHAWY, EHAB A Attending Unavailable ELTAHAWY, EHAB A Admitting Unavailable DOUGYJONASJENNIFER Referring Unavailable DOUGY, JENNIFER Primary Care Unavailable [...] RODRIGUEZ Primary Care Unavailable HOY ., DR RODRIUGEZ Attending Unavailable HOY ., DR RODRIGUEZ Admitting Unavailable Gay Wheeler Consulting Unavailable CK NIXON Consulting Unavailable HOY ., DR RODRIGUEZ Primary Care Unavailable CK NIXON Attending Unavailable CK NIXON Admitting Unavailable CK NIXON Consulting Unavailable HOY ., DR RODRIGUEZ Primary Care Unavailable CK NIXON Attending Unavailable CK NIXON Admitting Unavailable HOY ., DR RODRIGUEZ Consulting Unavailable MEERA ., DR RODRIGUEZ Primary Care Unavailable MEERA ., DR RODRIGUEZ Attending Unavailable MEERA ., DR RODRIGUEZ Admitting Unavailable Gay Wheeler Consulting [facility] Consulting Unavailable VINH GUZMAN Attending Unavailable ELNILSON, ADÁN Attending Unavailable TOYA, ADÁN Attending Unavailable REX FULLER Attending Unavailable Jennifer Melvin Referring Unavailable REX FULLER Attending Unavailable Jennifer Melvin Referring Unavailable REX FULLER Admitting Unavailable REX FULLER Attending Unavailable Jennifer Melvin Primary Care Physician Allergies Allergy Classification Reported Allergen(s) Allergy Type Date of Onset Reaction(s) Facility (1 source) No Known Medication Allergies; Translations: [No Known Medication Allergies] Propensity to adverse reactions (disorder) [facility] Repository Medications Current Medications Medication Drug Class(es) Dates Sig (Normalized) Sig (Original) amLODIPine 2.5 mg oral tablet (2 sources) Dihydropyridine Calcium Channel Zahira Start: 12-25-2023 take 1 tablet by mouth once daily amLODIPine 2.5 mg Tab 2.5 mg = 1 tab(s), Oral, Daily Start Date: 12/25/23 Status: Ordered aspirin 81 mg oral tablet (2 sources) Platelet Aggregation Inhibitor, Nonsteroidal Anti-inflammatory Drug Start: 01-15-2019 take 1 mg by mouth once daily aspirin 81 mg oral tablet mg tab(s), Oral, Daily, Refills(s) 0 Start Date: 01/15/19 Status: Ordered carvedilol 3.125 mg oral tablet (2 sources) alpha-Adrenergic Zahira, beta-Adrenergic Zahira Start: 12-25-2023 take 2 tablets by mouth once daily carvedilol 3.125 mg Tab 6.25 mg = 2 tab(s), Oral, Daily Start Date: 12/25/23 Status: Ordered diclofenac sodium 50 mg delayed release oral tablet (2 sources) Nonsteroidal Anti-inflammatory Drug Start: 12-25-2023 take 1 tablet by mouth three times daily diclofenac sodium 50 mg Oral EC Tab 50 mg = 1 tab(s), Oral, TID Start Date: 12/25/23 Status: Ordered levothyroxine sodium 0.137 mg oral tablet (2 sources) l-Thyroxine Start: 12-25-2023 take 0.5 tablet by mouth once daily levothyroxine 137 mcg (0.137 mg) Tab 1/2 tab(s), Oral, Daily Start Date: 12/25/23 Status: Ordered Nitro 0.4 mg Tab (2 sources) Start: 01-15-2019 Nitro 0.4 mg Tab = 1 tab(s), SubLingual, q5min, PRN Chest pain Start Date: 01/15/19 Status: Ordered Psyllium (2 sources) Start: 12-25-2023 Metamucil Oral Start Date: 12/25/23 Status: Ordered rosuvastatin calcium 20 mg oral tablet (2 sources) HMG-CoA Reductase Inhibitor Start: 12-25-2023 take 1 tablet by mouth once daily rosuvastatin 20 mg Tab 20 mg = 1 tab(s), Oral, Daily Start Date: 12/25/23 Status: Ordered tamsulosin hydrochloride 0.4 mg oral capsule (2 sources) alpha-Adrenergic Zahira Start: 12-25-2023 take 1 capsule by mouth once daily tamsulosin 0.4 mg Cap 0.4 mg = 1 cap(s), Oral, Daily Start Date: 12/25/23 Status: Ordered vitamin B12 (2 sources) Vitamin B12 Start: 01-15-2019 Vitamin B12 See Instructions Start Date: 01/15/19 Status: Ordered Completed/Discontinued Medications Medication Drug Class(es) Dates Sig (Normalized) Sig (Original) cholecalciferol 0.05 mg oral capsule (2 sources) Vitamin D Start: 01-15-2019 take 1 capsule by mouth once daily cholecalciferol 2000 intl units oral capsule 2,000 International_Unit = 1 cap(s), Oral, Daily Start Date: 01/15/19 Status: Ordered ciprofloxacin 500 mg oral tablet (2 sources) Quinolone Antimicrobial Start: 12-25-2023 take 1 tablet by mouth once daily Cipro 500 mg Tab 500 mg = 1 tab(s), Oral, Daily, take one tab day before procedure and one tab after procedure, # 2 tab(s), Refills(s) 0, Pharmacy: [facility]/pharmacy #[id number], 178, cm, 12/25/23 8:48:00 EDT, Height/Length Dosing, 73, kg, 12/25/23 8:48:00 EDT, Weight Dosing Start Date: 12/25/23 Status: Ordered 24 hr isosorbide mononitrate 30 mg extended release oral tablet (2 sources) Nitrate Vasodilator Start: 01-15-2019 take 1 tablet by mouth once daily in the morning isosorbide mononitrate 30 mg ER Tab 1/2 tab, Oral, qAM Start Date: 01/15/19 Status: Ordered Problems Active Problems Problem Classification Problem Date Documented Da te Episodic/Chronic Abdominal hernia (2 sources) Right inguinal hernia 01-15-2019 Episodic Abdominal pain (2 sources) Right inguinal pain 04-15-2019 Episodic Calculus of urinary tract (3 sources) Kidney stone; Translations: [Calculus of kidney] Onset: 12-25-2023 Episodic Cardiac dysrhythmias (1 source) Ventricular tachycardia; Translations: [VENTRICULAR TACHYCARDIA] Onset: 12-21-2021 Chronic Conduction disorders (2 sources) Right bundle branch block 01-15-2019 Chronic Coronary atherosclerosis and other heart disease (17 sources) 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; Translations: [Angina pectoris, unspecified] Onset: 12-20-2021 Chronic Disorders of lipid metabolism (11 sources) Pure hypercholesterolemia, unspecified; Translations: [Mixed hyperlipidemia] Onset: 12-21-2021 Chronic Essential hypertension (4 sources) Essential (primary) hypertension; Translations: [Hypertensive disorder] Onset: 08-11-2022 Chronic Genitourinary symptoms and ill-defined conditions (6 sources) Blood in urine; Translations: [Gross hematuria] Onset: 12-25-2023 Episodic Heart valve disorders (1 source) Rheumatic tricuspid insufficiency; 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 TRICUSPID INSUFFICIENCY] Onset: 12-22-2021 Chronic Hyperplasia of prostate (5 sources) Benign prostatic hypertrophy with outflow obstruction; Translations: [Benign prostatic hyperplasia with lower urinary tract symptoms] Onset: 12-25-2023 Chronic Other diseases of bladder and urethra (1 source) Disorder of bladder; Translations: [Other specified disorders of bladder] Onset: 12-25-2023 Chronic Other ear and sense organ disorders (2 sources) Hearing loss 12-25-2023 Chronic Other fractures (4 sources) Collapsed vertebra, not elsewhere classified, lumbosacral region, initial encounter for fracture; Translations: [COLLAPSED VERT NEC LS RGN INIT ENC] Onset: 05-22-2022 Episodic Other gastrointestinal disorders (1 source) Constipation, unspecified; Translations: [CONSTIPATION UNSPECIFIED] Onset: 07-31-2022 Episodic Other screening for suspected conditions (not mental disorders or infectious disease) (6 sources) Encounter for screening for malignant neoplasm [...] BACK WALL THOR SUB] Onset: 05-14-2022 Episodic Thyroid disorders (2 sources) Hypothyroidism 01-15-2019 Chronic Unclassified (1 source) CONTACT W/AND (SUSP) EXPOS COVID-19; Translations: [CONTACT W/AND (SUSP) EXPOS COVID-19] Onset: 12-27-2021 Past or Other Problems Problem Classification Problem Date Documented Da te Episodic/Chronic Coronary atherosclerosis and other heart disease (2 sources) Presence of aortocoronary bypass graft; Translations: [Presence of aortocoronary bypass graft] Onset: 08-11-2022 Episodic Other aftercare (1 source) Other senior care (current) drug therapy; Translations: [OTH MOLD UNLOADER CURRENT DRUG THERAPY] Onset: 12-27-2021 Episodic Results Test Name Value Interpretation Reference Range Facility Ambulatory Visit Summaryon 0 12-25-2023 Ambulatory Visit Summary Ambulatory Visit Summary KINGSLEY NARANJO :1935 Visit Date:12/25/2023 Ambulatory Visit Instructions Your Diagnosis Gross hematuria Bladder mass Kidney stone BPH with obstruction/lower urinary tract symptoms Elevated PSA Tests Performed CT Urogram -- Results Pending -- Please visit your patient portal for your results or contact your primary care physician. Your Care Team Attending Physician - REX FULLER PA-C Primary Care Physician - Jennifer Melvin MD Referring Physician - eJnnifer Melvin MD This Is Your Medications List Contact prescribing physician if questions or concerns amlodipine (amLODIPine 2.5 mg Tab) aspirin (aspirin 81 mg oral tablet) carvedilol (carvedilol 3.125 mg Tab) cholecalciferol (cholecalciferol 2000 intl units oral capsule) cyanocobalamin (Vitamin B12) diclofenac (diclofenac sodium 50 mg Oral EC Tab) isosorbide mononitrate (isosorbide mononitrate 30 mg ER Tab) levothyroxine (levothyroxine 137 mcg (0.137 mg) Tab) nitroglycerin (Nitro 0.4 mg Tab) psyllium (Metamucil) rosuvastatin (rosuvastatin 20 mg Tab) tamsulosin (tamsulosin 0.4 mg Cap) Procedures Performed Colonoscopy (06/30/2009), Cardiac catheterization, Coronary angioplasty, Repair of inguinal hernia. Discharge Vitals Temperature (Temporal Artery) 36.6 ?C Heart Rate (Peripheral) 58 Respiratory Rate 16 Blood Pressure 150/82 Height 178 cm Height 70 in Weight 73 kg Weight 160.6 lb BMI 23.04 What to do next You Need to Schedule the Following Appointments Follow Up with REX FULLER PA-C, URL When: Where: [address] [place] [address] [phone] Medications What How Much When Instructions Unchanged amlodipine (amLODIPine 2.5 mg Tab) 1 Tablets By Mouth Every day Contact prescribing physician if questions or concerns Unchanged aspirin (aspirin 81 mg oral tablet) By Mouth Every day Contact prescribing physician if questions or concerns Unchanged carvedilol (carvedilol 3.125 mg Tab) 2 Tablets By Mouth Every day Contact prescribing physician if questions or concerns Unchanged cholecalciferol (cholecalciferol 2000 intl units oral capsule) 1 Capsules By Mouth Every day Contact prescribing physician if questions or concerns Unchanged cyanocobalamin (Vitamin B12) See instructions Contact prescribing physician if questions or concerns Unchanged diclofenac (diclofenac sodium 50 mg Oral EC Tab) 1 Tablets By Mouth 3 times a day Contact prescribing physician if questions or concerns Unchanged isosorbide mononitrate (isosorbide mononitrate 30 mg ER Tab) 1/2 tab By Mouth Once a day (in the morning) Contact prescribing physician if questions or concerns Unchanged levothyroxine (levothyroxine 137 mcg (0.137 mg) Tab) 1/2 tab(s) By Mouth Every day Contact prescribing physician if questions or concerns Unchanged nitroglycerin (Nitro 0.4 mg Tab) 1 Tablets Sublingual Every 5 minutes as needed for Chest pain Contact prescribing physician if questions or concerns Unchanged psyllium (Metamucil) By Mouth Contact prescribing physician if questions or concerns Unchanged rosuvastatin (rosuvastatin 20 mg Tab) 1 Tablets By Mouth Every day Contact prescribing physician if questions or concerns Unchanged tamsulosin (tamsulosin 0.4 mg Cap) 1 Capsules By Mouth Every day Contact prescribing physician if questions or concerns Allergies No Known Medication Allergies Problems Ongoing - Any problem that you are currently receiving treatment for. Arteriosclerotic heart disease (ASHD) BPH with elevated PSA BPH with obstruction/lower urinary tract symptoms Gross hematuria Hearing loss High cholesterol Hypertension Hypothyroidism Ischemic cardiomyopathy Kidney stone Mixed hyperlipidemia Right groin pain Right inguinal hernia Historical - Any problem that you are no longer receiving treatment for. Ischemic heart disease Right bundle branch block Patient Survey You may receive a survey via text or e-mail asking about your office visit. Please share your experience with us by completing your survey. We appreciate your feedback and thank you for choosing us for your care. Education Materials Cystoscopy Cystoscopy is a procedure that is used to help diagnose and sometimes treat conditions that affect the lower urinary tract. The lower urinary tract includes the bladder and the urethra. The urethra is the tube that drains urine from the bladder. Cystoscopy is done using a thin, tube-shaped instrument with a light and camera at the end (cystoscope). The cystoscope may be hard or flexible, depending on the goal of the procedure. The cystoscope is inserted through the urethra, into the bladder. Cystoscopy may be recommended if you have: ? Urinary tract infections that keep coming back. ? Blood in the urine (hematuria). ? An inability to control when you urinate (urinary incontinence) or an overactive bladder. ? Un (more content not included)... Normal [facility] Ambulatory Visit Summary Ambulatory Visit Summary KINGSLEY NARANJO :1935 Visit Date:12/25/2023 Ambulatory Visit Instructions Your Diagnosis Gross hematuria Bladder mass Kidney stone BPH with obstruction/lower urinary tract symptoms Elevated PSA Tests Performed CT Urogram -- Results Pending -- Please visit your patient portal for your results or contact your primary care physician. Your Care Team Attending Physician - REX FULLER PA-C Primary Care Physician - Jennifer Melvin MD Referring Physician - Jennifer Melvin MD This Is Your Medications List Contact prescribing physician if questions or concerns amlodipine (amLODIPine 2.5 mg Tab) aspirin (aspirin 81 mg oral tablet) carvedilol (carvedilol 3.125 mg Tab) cholecalciferol (cholecalciferol 2000 intl units oral capsule) cyanocobalamin (Vitamin B12) diclofenac (diclofenac sodium 50 mg Oral EC Tab) isosorbide mononitrate (isosorbide mononitrate 30 mg ER Tab) levothyroxine (levothyroxine 137 mcg (0.137 mg) Tab) nitroglycerin (Nitro 0.4 mg Tab) psyllium (Metamucil) rosuvastatin (rosuvastatin 20 mg Tab) tamsulosin (tamsulosin 0.4 mg Cap) Procedures Performed Colonoscopy (06/30/2009), Cardiac catheterization, Coronary angioplasty, Repair of inguinal hernia. Discharge Vitals Temperature (Temporal Artery) 36.6 ?C Heart Rate (Peripheral) 58 Respiratory Rate 16 Blood Pressure 150/82 Height 178 cm Height 70 in Weight 73 kg Weight 160.6 lb BMI 23.04 What to do next You Need to Schedule the Following Appointments Follow Up with REX FULLER PA-C, URL When: Where: [address] [place] [address] [phone] Medications What How Much When Instructions Unchanged amlodipine (amLODIPine 2.5 mg Tab) 1 Tablets By Mouth Every day Contact prescribing physician if questions or concerns Unchanged aspirin (aspirin 81 mg oral tablet) By Mouth Every day Contact prescribing physician if questions or concerns Unchanged carvedilol (carvedilol 3.125 mg Tab) 2 Tablets By Mouth Every day Contact prescribing physician if questions or concerns Unchanged cholecalciferol (cholecalciferol 2000 intl units oral capsule) 1 Capsules By Mouth Every day Contact prescribing physician if questions or concerns Unchanged cyanocobalamin (Vitamin B12) See instructions Contact prescribing physician if questions or concerns Unchanged diclofenac (diclofenac sodium 50 mg Oral EC Tab) 1 Tablets By Mouth 3 times a day Contact prescribing physician if questions or concerns Unchanged isosorbide mononitrate (isosorbide mononitrate 30 mg ER Tab) 1/2 tab By Mouth Once a day (in the morning) Contact prescribing physician if questions or concerns Unchanged levothyroxine (levothyroxine 137 mcg (0.137 mg) Tab) 1/2 tab(s) By Mouth Every day Contact prescribing physician if questions or concerns Unchanged nitroglycerin (Nitro 0.4 mg Tab) 1 Tablets Sublingual Every 5 minutes as needed for Chest pain Contact prescribing physician if questions or concerns Unchanged psyllium (Metamucil) By Mouth Contact prescribing physician if questions or concerns Unchanged rosuvastatin (rosuvastatin 20 mg Tab) 1 Tablets By Mouth Every day Contact prescribing physician if questions or concerns Unchanged tamsulosin (tamsulosin 0.4 mg Cap) 1 Capsules By Mouth Every day Contact prescribing physician if questions or concerns Allergies No Known Medication Allergies Problems Ongoing - Any problem that you are currently receiving treatment for. Arteriosclerotic heart disease (ASHD) BPH with elevated PSA BPH with obstruction/lower urinary tract symptoms Gross hematuria Hearing loss High cholesterol Hypertension Hypothyroidism Ischemic cardiomyopathy Kidney stone Mixed hyperlipidemia Right groin pain Right inguinal hernia Historical - Any problem that you are no longer receiving treatment for. Ischemic heart disease Right bundle branch block Patient Survey You may receive a survey via text or e-mail asking about your office visit. Please share your experience with us by completing your survey. We appreciate your feedback and thank you for choosing us for your care. Education Materials Cystoscopy Cystoscopy is a procedure that is used to help diagnose and sometimes treat conditions that affect the lower urinary tract. The lower urinary tract includes the bladder and the urethra. The urethra is the tube that drains urine from the bladder. Cystoscopy is done using a thin, tube-shaped instrument with a light and camera at the end (cystoscope). The cystoscope may be hard or flexible, depending on the goal of the procedure. The cystoscope is inserted through the urethra, into the bladder. Cystoscopy may be recommended if you have: ? Urinary tract infections that keep coming back. ? Blood in the urine (hematuria). ? An inability to control when you urinate (urinary incontinence) or an overactive bladder. ? Un (more content not included)... [facility] Urology Office/Clinic Noteon 12-25-2023 Urology Office/Clinic Note Urology Office/Clinic Note Chief Complaint New patient gross hematuria HPI Staff New pt referred by Dr. Jennifer Melvin for UTI, gross hematuria, and BPH. Last seen IO 06/18/[address] Mobley, was on Flomax at that time. S/p TRUS/bx 08/04/09 and 03/24/09, Cystoscopy 10/01/15. Gross hematuria 08/31, given 09/02 cipro was started. Cefdinir 300 mg 12/20/23 given PCP, told PCP he is having pain in bladder. PSA 08/02/15 - 4.89 04/10/17 - 4.17 07/18/17 - 4.59 07/20/17 - 4.9 & 26.1% (just a total was also done that day, 4.30) 08/06/20 - 5.25 08/16/20 - 6.1 & 32.6% (last PSA found on [facility]) Micro UA 09/03/23 - 5-10 RBC, 0-2 WBC. Neg ucx. UA 10/13/23 - 20-50 RBC, 0-2 WBC. No ucx done. Renal US 11/27/23 [facility] showed 3.6 cm bladder mass. Dysuria: is having pain in his bladder 3-4 weeks Incomplete bladder emptying: denies Hematuria: has had hematuria in august, denies visible blood Frequency: denies Urgency: denies Nocturia: 2 x a night Stream: denies hesitancy, has a small stream, kins of weak Leaking: denies Post void dripping: denies Wearing pads/ Depends: denies Urge incontinence: denies Stress incontinence: _denies Incontinence without Sensory Awareness: denies Abdominal pain: bladder area Flank pain: denies Sexual complaints: _ History of Present Illness staff HPI reviewed and agree. Review of Systems PHQ Score Initial Depression Screen Score: 0 SCORE no fever, chills, malaise, myalgia. no rash/lesions. no chest pain, palpitations, or SOB. no abdominal pain, nausea, vomiting. no unilateral calf swelling, redness, pain Physical Exam Vitals & Measurements T: 36.6 ?C(Temporal Artery) HR: 58(Peripheral) RR: 16 BP: 150/82 HT: 70 in HT: 178 cm WT: 73 kg WT: 160.6 lb BMI: 23.04 General: nontoxic, NAD Mouth: moist mucosa Lungs: normal respiratory effort Cardio: regular rate, good distal perfusion Abdomen: nondistended, no suprapubic distention or tenderness, no CVA tenderness Neurologic: Grossly normal Skin: No rashes or suspicious lesions Assessment/Plan Kingsley is a 88 yo male new pt referred by Dr. Jennifer Melvin for UTI, hematuria, and BPH. Prior Dr. Mobley pt, last seen in 2018. Pt here with his son today. ESTER 1. 1. Gross hematuria (R31.0: Gross hematuria) S/p Cystoscopy 10/01/15 by PRW. Had gross hematuria 09/01/23. PCP rx'd Cipro 09/03/23. Micro UA 09/03/23 - 5-10 RBC, 0-2 WBC. Neg ucx. UA 10/13/23 - 20-50 RBC, 0-2 WBC. No ucx done. IVAN 11/27/23 [facility] - 3.6 cm bladder mass. PCP rx'd Cefdinir 11/21/23 due to bladder pain. Had microscopic blood per PCP's office earlier this month. Was given a two-day course of Cefdinir again. UA today shows large hgb. Denies visible blood at this time. Educated pt on potential etiologies and implications of hematuria with patient. These include: Prostatic disease (prostatitis, BPH, cancer), trauma (recent catheterization, etc), Tumor (renal, urothelial, prostatic, urethral, etc), infection/inflammation (UTI, cystitis, recent catheterization, interstitial cystitis, radiation), stones, obstructive uropathy (urolithiasis, stricture, etc), nephritis (glomeurlonephritis, Alport's syndrome, Quiles's IgA nephropathy, interstitial nephritis, etc), Tuberculosis, thrombosis (renal vein thrombosis, renal infarct, pseudoaneurysm, etc) and hematologic (bleeding disorders, anticoagulation, sickle cells disease, etc) Urologic malignancy is more common in patients with gross hematuria (23%) than in patient with microscopic hematuria (5%). In adults with microscopic hematuria, the initial evaluation fails to identify an etiology in 43% of patients. Approximately 1-3% of these patients eventually develop a urologic malignancy. In adults with gross hematuria, the initial evaluation fails to identify an etiology in 8% of patients. Approximately, 18% of these patients eventually develop a urologic malignancy. Discussed hematuria workup includes upper urinary tract imaging, evaluation of the urinary cells with urine cytology and possible a FISH test, and a cystoscopy to rule out lower urinary tract pathology. Pt aware that a distinct etiology of the hematuria may not be clear upon conclusion of the workup. The rationale for this workup has been discussed, and all questions have been answered. -Finish abx course -Urine sample to be sent for cytology -Schedule CTU -Will schedule cystoscopy (may be better to schedule in OR for TURBT if mass is confirmed on CTU). The risks and benefits for cystoscopy have been discussed. The risks include bleeding, infection, and irritation of the bladder and urinary channel, among others. The patient, after being informed of procedural details and after questions have been answered, wishes to proceed. Full informed consent has been obtained. 2. Bladder mass (N32.89: Other specified disorders of bladder) IVAN 11/27/23 [facility] - 3.6 cm bladder mass. Reviewed imaging results. Advised pt bladder masses can be misread on US and may act (more content not included)... [facility] Comment on above: Result Comment: Elec tronically Signed By: REX FULLER PA-C\.br\Date and Time Signed: 12/25/23 09:32 EDT\.br\Electronically Co-Signed By: Hortencia Thomas\.br\Date and Time Co-Signed: 12/25/23 09:24 EDT Office Visiton 08-08-2023 Follow-up visit [id number] Fernie Naranjo 1935 M Date Provider Department Center 08/08/2023 AD[facility]N [facility] No family history on file Level of Service:44193 MT OFFICE/OUTPATIENT ESTABLISHED LOW MDM 20 MIN Normal [facility] Office Visiton 02-06-2023 Follow-up visit [id number] Fernie Naranjo 1935 M Date Provider Department Center 02/06/2023 ADÁN [facility] No family history on file Level of Service:75189 MT OFFICE/OUTPATIENT ESTABLISHED LOW MDM 20-29 MIN Normal [facility] Office Visiton 08-11-2022 Follow-up visit [id number] MarcellaFernie Markham 1935 M Date Provider Department Center 08/11/2022 Niurka-MEGANVINH Saavedra [facility] No family history on file Level of Service:86438 MT OFFICE/OUTPATIENT ESTABLISHED MOD MDM 30-39 MIN Reason for Visit and Comments: Follow-up [776086] - 6 mo f/u Medication Problem [65] - Dr. Melvin took him off of Amlodipine for 2 weeks due to constipation. However, it made no difference so far. Kingsley starts back on it tomorrow, August 12. Normal [facility] OCC BLD IMMUNO SCREENon 07-12 OCCULT BLOOD Negative Normal NEGATIVE [facility] Comment on above: Performed By: #### O BSCRN #### [facility] [address] [place] [address] Dr. Gricel Busch MRI LSPINE WO CONon [...] by: GAY WHEELER Date: 2022-06-09 09:46 Normal [facility] CT TSPINE WO CONon 2 CT TSPINE [...] by: MACY MICHAEL Date: 2022-01-05 16:34 Normal [facility] CBC COMPLETE BLOOD COUNTon 0 12-29-2021 Erythrocyte distribution width (RBC) [Ratio] 13.4 % Normal 11.5-15.0 [facility] Comment on above: Order Comment: No: D o not add to previous draw Performed By: #### 5 [id number] #### [facility] [address] Hematocrit (Bld) [Volume fraction] 38.5 % Low 39.0-50.0 The [facility] Comment on above: Order Comment: No: D o not add to previous draw Performed By: #### 5 [id number] #### [facility] [address] Hemoglobin (Bld) [Mass/Vol] 13.5 g/dL Normal 13.0-17.0 [facility] Comment on above: Order Comment: No: D o not add to previous draw Performed By: #### 5 [id number] #### [facility] [address] [place] [address], [facility] MCH (RBC) [Entitic mass] 32.4 pg Normal 27.0-33.0 The [facility] Comment on above: Order Comment: No: D o not add to previous draw Performed By: #### 5 [id number] #### [facility] [address] [place] [id number], [facility] MCHC (RBC) [Mass/Vol] 35.1 g/dL High 32.0-35.0 The [facility] Comment on above: Order Comment: No: D o not add to previous draw Performed By: #### 5 [id number] #### [facility] [address] [place] [id number], [facility] MCV (RBC) [Entitic vol] 92.3 fL Normal 82.0-98.0 The [facility] Comment on above: Order Comment: No: D o not add to previous draw Performed By: #### 5 [id number] #### [facility] [address] [place] [address], [facility] Nucleated RBC/100 WBC (Bld) [Ratio] 0 % Normal 0-0 The [facility] Comment on above: Order Comment: No: D o not add to previous draw Performed By: #### 5 [id number] #### [facility] [address] [place] [id number], [facility] PLAT CNT 165 10*3/uL Normal 150-400 The [facility] Comment on above: Order Comment: No: D o not add to previous draw Performed By: #### 5 [id number] #### [facility] [address] [place] [id number], [facility] RBC (Bld) [#/Vol] 4.17 10*6/uL Low 4.20-5.70 The [facility] Comment on above: Order Comment: No: D o not add to previous draw Performed By: #### 5 [id number] #### [facility] [address] [place] [id number], [facility] WBC (Bld) [#/Vol] 8.33 10*3/uL Normal 4.00-10.60 The [facility] Comment on above: Order Comment: No: D o not add to previous draw Performed By: #### 5 [id number] #### [facility] [address] [place] [address], [facility] CREATININE BLOODon 2 Creatinine [Mass/Vol] 0.82 mg/dL Normal 0.70-1.30 The [facility] Comment on above: Order Comment: No: D o not add to previous draw Performed By: #### 2 [id number] #### [facility] [address] [facility] GFR/1.73 sq M.predicted among non-blacks MDRD (S/P/Bld) [Vol rate/Area] mL/min/{1.73_m2} Normal >60 The [facility] Comment on above: Order Comment: No: D o not add to previous draw Result Comment: The [facility]'s estimated glomerular filtration rate (eGFR) will no [...] individuals. Performed By: #### 2 [id number] #### [facility] [address] [facility] Cardiovascular Lab Reporton 12-29-2021 Cardiovascular Lab Report [facility] Patient Name: Kingsley Naranjo [facility] Shahrzad MR #: [id number] Department of Physician: Adeline Carlos M.D. Division of Service Date: 12/28/2021 Cardiology Birthdate: 1935 Adult Cardiovascular Room #: 3AB [id number] [facility] [address] [facility] [place] [address] Cardiovascular Laboratory Report FINAL IMPRESSIONS: 1. 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 Risks of percutaneous revascularization likely outweigh benefits at this juncture. 2. Optimal medical therapy for coronary artery disease should include aspirin, high intensity statin therapy, beta zahira. 3. Will add Imdur 30 mg a day and up titrate for symptomatic relief. 4. Switch metoprolol tartrate to Coreg for better blood pressure control and improving the supply demand mismatch. 5. Consider non-cardiac (musculoskeletal) etiologies for positional back pain. 6. Follow up with Dr. Pittman in the [place] office in the next 2-4 weeks. 7. Follow up with Dr. Melvin as scheduled. PROCEDURES: Ultrasound-guided access to the right common femoral artery, limited femoral angiography, bilateral selective coronary angiography, angiography of internal mammary artery graft, angiography of the saphenous vein graft, placement of a 6-Kazakh MynxGrip closure device. METHODS: After risks, benefits, [...] was performed. This was upsized to a 6-Kazakh 11 cm sheath. Bilateral selective coronary angiography [...] the procedure. All catheters were removed. A 6-Kazakh MynxGrip closure device was deployed per protocol [...] marginals. Distal filling is seen into the burns paiute obtuse marginal via saphenous vein graft. Just [...] patent (more content not included)... Normal [facility] TROPONIN-Ion 12-28-2021 Troponin I.cardiac [Mass/Vol] 0.09 ng/mL High 0.00-0.04 The [facility] Comment on above: Order Comment: No: D o not add to previous draw Result Comment: REFE RENCE RANGES: 0.00 - 0.04 ng/ml NORMAL 0.05 - 0.50 ng/ml INDETERMINATE > 0.50 ng/ml CONSISTENT WITH AN M.I. Performed By: #### 3 [id number] #### [facility] [address] [place] [address], [facility] CBC AUTO DIFFon 12-26-2021 BASO # 0.0 103/ul Normal 0.0-0.1 [facility] Comment on above: Performed By: #### C BC #### [facility] [address] [place] [address] [address] Gricel Busch Basophils/100 WBC (Bld) 0.6 % Normal 0.2-2.0 [facility] Comment on above: Performed By: #### C BC #### [facility] [address] [place] [address] Dr. Gricel Busch EO # 0.1 103/ul Normal 0.0-0.7 [facility] Comment on above: Performed By: #### C BC #### [facility] [address] [place] [address] [address] Gricel Busch Eosinophils/100 WBC (Bld) 1.8 % Normal 0.9-7.0 [facility] Comment on above: Performed By: #### C BC #### [facility] [address] [place] [address] Dr. Gricel Busch Erythrocyte distribution width (RBC) [Ratio] 13.1 % Normal 11.0-15.0 [facility] Comment on above: Performed By: #### C BC #### [facility] [address] [place] [address] Dr. Gricel Busch Hematocrit (Bld) [Volume fraction] 42.4 % Normal 42.0-54.0 [facility] Comment on above: Performed By: #### C BC #### [facility] [address] [place] [address] Dr. Gricel Busch Hemoglobin (Bld) [Mass/Vol] 13.9 g/dL Critically low 14.0-18.0 [facility] Comment on above: Performed By: #### C BC #### [facility] [address] [place] [address] Dr. Gricel Busch IG # 0.03 10e3/ul Normal 0.00-0.03 [facility] Comment on above: Performed By: #### C BC #### [facility] [address] [place] [address] Dr. Gricel Busch IG % 0.4 % Normal 0.0-0.5 [facility] Comment on above: Performed By: #### C BC #### [facility] [address] [place] [address] Dr. Gricel Busch LYMPH # 1.2 103/ul Normal 1.2-3.8 [facility] Comment on above: Performed By: #### C BC #### [facility] [address] [place] [address] Dr. Gricel Busch Lymphocytes/100 WBC (Bld) 16.9 % Critically low 20.5-60.0 [facility] Comment on above: Performed By: #### C BC #### [facility] [address] [place] [address] Dr. Gricel Busch MANUAL DIFF REQ NO Normal [facility] Comment on above: Performed By: #### C BC #### [facility] [address] [place] [address] Dr. Gricel Busch MCH (RBC) [Entitic mass] 31.3 pg Normal 25.9-34.0 [facility] Comment on above: Performed By: #### C BC #### [facility] [address] [place] [address] Dr. Gricel Busch MCHC (RBC) [Mass/Vol] 32.8 g/dL Normal 29.9-35.2 [facility] Comment on above: Performed By: #### C BC #### [facility] [address] [place] [address] Dr. Gricel Busch MCV (RBC) [Entitic vol] 95.5 fL Critically high 80.0-94.0 [facility] Comment on above: Performed By: #### C BC #### [facility] [address] [place] [address] Dr. Gricel Busch MONO # 0.8 103/ul Normal 0.3-0.8 [facility] Comment on above: Performed By: #### C BC #### [facility] [address] [place] [address] Dr. Gricel Busch Monocytes/100 WBC (Bld) 10.9 % Normal 1.7-12.0 [facility] Comment on above: Performed By: #### C BC #### [facility] [address] [place] [address] Dr. Gricel Busch NEUT # 4.9 103/ul Normal 1.4-6.5 [facility] Comment on above: Performed By: #### C BC #### [facility] [address] [place] [address] Dr. Gricel Busch Neutrophils/100 WBC (Bld) 69.4 % Normal 43.0-75.0 [facility] Comment on above: Performed By: #### C BC #### [facility] [address] [place] [address] Dr. Gricel Busch Platelet mean volume (Bld) [Entitic vol] 9.6 fL Normal 9.5-13.5 [facility] Comment on above: Performed By: #### C BC #### [facility] [address] [place] [address] Dr. Gricel Busch PLT 191 103/ul Normal 150-450 [facility] Comment on above: Performed By: #### C BC #### [facility] [address] [place] [address] Dr. Gricel Busch RBC 4.44 106/ul Critically low 4.70-6.10 [facility] Comment on above: Performed By: #### C BC #### [facility] [address] [place] [address] Dr. Gricel Busch WBC 7.1 103/ul Normal 4.0-11.0 [facility] Comment on above: Performed By: #### C BC #### [facility] [address] [place] [address] Dr. Gricel Busch Cov[facility]-19 [facility]on 12-12 SARS-CoV-2 (COVID-19) RNA NIR+probe Ql (Unsp spec) Not detected Normal NOT DETECTED [facility] Comment on above: Result Comment: This test is not yet approved or cleared by the [place] FDA. When there are no FDA-approved or cleared tests available, and other criteria are met, FDA can make tests available under an emergency access mechanism called an Emergency Use Authorization (EUA). The EUA for this test is supported by the Delivery Nurse of Health and Human Service's (HHS's) declaration [...] SARS-CoV-2. Performed By: #### C VDTB #### [facility] [address] [place] [address] Dr. Gricel Busch PROF CHEM 8 (BAS METB)on Anion gap [Moles/Vol] 9.6 mmol/L Normal [facility] Comment on above: Performed By: #### B MP #### [facility] [address] [place] [address] Dr. Gricel Busch Calcium [Mass/Vol] 9.8 mg/dL Normal 8.5-10.1 [facility] Comment on above: Performed By: #### B MP #### [facility] [address] [place] [address] Dr. Gricel Busch Chloride [Moles/Vol] 102 mmol/L Normal 98-107 [facility] Comment on above: Performed By: #### B MP #### [facility] [address] [place] [address] Dr. Gricel Busch CO2 [Moles/Vol] 28.1 mmol/L Normal 21.0-32.0 [facility] Comment on above: Performed By: #### B MP #### [facility] [address] [place] [address] [address] Gricel Busch Creatinine [Mass/Vol] 0.88 mg/dL Normal 0.70-1.30 [facility] Comment on above: Performed By: #### B MP #### [facility] [address] [place] [address] [address] Gricel Busch EGFR-AF IRISH >60 Normal >=60 [facility] Comment on above: Performed By: #### B MP #### [facility] [address] [place] [address] [address] Gricel Busch EGFR-NON AF IRISH >60 Normal >=60 [facility] Comment on above: Performed By: #### B MP #### [facility] [address] [place] [address] Dr. Gricel Busch Glucose [Mass/Vol] 101 mg/dL Normal 74-106 [facility] Comment on above: Performed By: #### B MP #### [facility] [address] [place] [address] Dr. Gricel Busch Potassium [Moles/Vol] 4.7 mmol/L Normal 3.5-5.1 [facility] Comment on above: Performed By: #### B MP #### [facility] [address] [place] [address] Dr. Gricel Busch Sodium [Moles/Vol] 135 mmol/L Critically low 136-145 [facility] Comment on above: Performed By: #### B MP #### [facility] [address] [place] [address] Dr. Gricel Busch Urea nitrogen [Mass/Vol] 12.0 mg/dL Normal 7.0-18.0 [facility] Comment on above: Performed By: #### B MP #### [facility] [address] [place] [address] Dr. Gricel Busch Urea nitrogen/Creatinine [Mass ratio] 13.6 mg/mg Normal [facility] Comment on above: Performed By: #### B MP #### [facility] [address] [place] [address] Dr. Gricel Busch ECHOCARDIO M/2D COMPLETEon 0 12-21-2021 ECHOCARDIO M/2D COMPLETE Patient: MARCELLA KINGSLEY Almaraz Exam Date: 12/21/2021 : 1935 Gender:M Ordering : DR JENNIFER MELVIN . Admission #: [id number] Family : Order #: [id number] CLICK HERE TO VIEW EXAM ECHOCARDIOGRAM REPORT [...] Daniels M.D. on 12/21/2021 at 19:28 Normal [facility] NM STRESS/REST MULTIon 12-20 NM STRESS/REST MULTI Patient: KINGSLEY NARANJO Exam Date: 12/20/2021 : 1935 Gender:M Ordering : DR JENNIFER MELVIN . Admission #: [id number] Family : Order #: [id number] CLICK HERE TO VIEW EXAM RADIOLOGY REPORT [...] Wheeler MD on 12/20/2021 at 14:18 Normal [facility] Vital Signs Date Time Vital Sign Value Performing Clinician Facility 12-25-2023 08:38-0400 Body temperature 97.88 [degF] REX FULLER [facility] 12-25-2023 08:38-0400 Diastolic blood pressure 82 mm[Hg] REX FULLER [facility] 12-25-2023 08:38-0400 Heart rate 58 /min REX FULLER [facility] 12-25-2023 08:38-0400 Respiratory rate 16 /min REX FULLER [facility] 12-25-2023 08:38-0400 Systolic blood pressure 150 mm[Hg] REX FULLER [facility] Encounters Encounter Date Encounter Type Care Provider Facility Start: 12-25-2023 ambulatory REX E JONNY Facili ty:[facility] Start: 12-25-2023 End: 12-25-2023 Lab Drop off REX Renetta ROCKRY [facility] Start: 12-25-2023 ambulatory REX E JONNY Facili ty:[facility] Start: 12-25-2023 End: 12-25-2023 Patient encounter procedure REX ROCKRY [facility] Start: 12-12-2023 ambulatory REX E JONNY Facili ty:[facility] Start: 11-29-2023 ambulatory REX JONNY Facility :[facility] Start: 08-08-2023 End: 08-08-2023 ambulatory [facility] Start: 07-25-2023 End: 07-25-2023 ambulatory Not Available Start: 07-12-2023 End: 07-12-2023 ambulatory Not Available Start: 02-06-2023 End: 02-06-2023 ambulatory [facility] Start: 08-11-2022 End: 08-11-2022 ambulatory VINH GUZMAN [facility] Start: 07-28-2022 End: 07-28-2022 ambulatory CK NIXON [...] . Facility:[facility] Start: 12-28-2021 End: 12-29-2021 ambulatory ADÁN PITTMAN Facility:[facility] Start: 12-26-2021 End: 12-27-[address] ADÁN PITTMAN Facility:[facility] Start: 12-21-2021 End: 12-22-[address] JENNIFER MELVIN . Facility:[facility] Start: 12-20-2021 End: 12-21-[address] JENNIFER MELVIN . Facility: Procedures Date Procedure Procedure Detail Performing Clinician Start: 06-30-2009 Colonoscopy REX SÁNCHEZ Cardiac catheterization JOSE FULLER Coronary angioplasty JOHNSON FULLER Repair of inguinal hernia TRUNG FULLER Comment on above: left Immunizations Immunization Date Immunization Notes Care Provider [facility] 03-26-2023 influenza virus vaccine, unspecified formulation REX FULLER [facility] 09-16-2021 SARS-CoV-2 mRNA (jhpqgrqxggy-yiot-tosrf se) vaccine REX FULLER [facility] Comment on above: Result Comment: 2023: [id number] 02-24-2021 SARS-CoV-2 (COVID-19 ) mRNA BNT-162b2 vax REX JONNY [facility] Comment on above: Result Comment: 2023: [id number] 02-18-2021 influenza virus vaccine, unspecified formulation REX JONNY [facility] 06-30-2020 SARS-CoV-2 (COVID-19 ) mRNA BNT-162b2 vax REX JONNY [facility] 06-07-2020 SARS-CoV-2 (COVID-19 ) mRNA BNT-162f1 vax REX JONNY [facility] 04-05-2020 influenza virus vaccine, unspecified formulation REX JONNY [facility] 03-07-2019 influenza virus vaccine, unspecified formulation REX JONNY [facility] [place] 04-13-2017 influenza virus vaccine, unspecified formulation REX JONNY [facility] 02-12-2017 influenza virus vaccine, unspecified formulation REX JONNY [facility] 11-13-2016 pneumococcal polysaccharide vaccine, 23 valent REX JONNY [facility] 02-12-2013 influenza virus vaccine, unspecified formulation REX JONNY [facility] 03-11-2003 pneumococcal polysaccharide vaccine, 23 valent REX JONNY [facility] NEGATED: Highlighted row has not occurred!02-21-2019 influenza virus vaccine, unspecified formulation REXMARY ANN FULLER [facility] Comment on above: Result Comment: Will obtain from primary care physician Payers Date Payer Category Payer Medicare [id number] 1960 Private Health Insurance [id number] 1935 Unknown [id number] 2.16.8 [id number] 1935 Unknown [id number] 2.16.84 [id number] 1935 Unknown [id number] 2.16.84 [id number] 1935 Unknown [id number] 2.16.84 [id number] 1934 Unknown [id number] 2.16.84 0.1.281622.3.579.2.593 1935 Unknown [id number] 2.16.84 0.1.724524.3.579.2.593 1934 Unknown [id number] 2.16.84 0.1.564897.3.579.2.593 1934 Unknown [id number] 2.16.84 0.1.523579.3.579.2.593 1934 Unknown [id number] 2.16.84 0.1.710234.3.579.2.593 1934 Unknown [id number] 2.16.84 0.1.370234.3.579.2.593 1934 Unknown [id number] 2.16.84 0.1.988801.3.579.2.593 1934 Unknown [id number] 2.16.84 0.1.291491.3.579.2.1259 1934 Unknown [id number] 2.16.84 0.1.216245.3.579.2.1259 1934 Unknown [id number] 2.16.8 40.1.063702.3.579.2.727 1934 Unknown [id number] 2.16.8 40.1.947430.3.579.2.727 1935 Unknown [id number] 2.16.8 [id number] Social History Date Type Detail Facility Start: 12-25-2023 Tobacco smoking status Never s moked tobacco (finding) [facility] Tobacco smoking status Never [facility] Sex Assigned At Male [facility] Functional Status Date Assessment Result Facility 12-25-2023 Functional Status N/A [facility] Clinical Notes 12-30-2021 to 12-25-2023 Note Date & Type Note Facility 12-25-2023 Evaluation + Plan note Diagnostic Tests PendingCreatinine 12/25/23 [facility] 12-25-2023 Evaluation + Plan note Diagnostic Tests PendingUrine Cytology ([facility]) 12/25/23 [facility] 12-25-2023 Hospital Discharge instructions Patient Education 12/25/2023 09:15:19 Cystoscopy Cystoscopy Cystoscopy is a procedure that is used to help diagnose and sometimes treat conditions that affect the lower urinary tract. The lower urinary tract includes the bladder and the urethra. The urethra is the tube that drains urine from the bladder. Cystoscopy is done using a thin, tube-shaped instrument with a light and camera at the end (cystoscope). The cystoscope may be hard or flexible, depending on the goal of the procedure. The cystoscope is inserted through the urethra, into the bladder. Cystoscopy may be recommended if you have: Urinary tract infections that keep coming back. Blood in the urine (hematuria). An inability to control when you urinate (urinary incontinence) or an overactive bladder. Unusual cells found in a urine sample. A blockage in the urethra, such as a urinary stone. Painful urination. An abnormality in the bladder found during an intravenous pyelogram (IVP) or CT scan. Cystoscopy may also be done to remove a sample of tissue to be examined under a microscope (biopsy). Tell a health care provider about: Any allergies you have. All medicines you are taking, including vitamins, herbs, eye drops, creams, and pcre-sqh-tsmenmb medicines. Any problems you or family members have had with anesthetic medicines. Any blood disorders you have. Any surgeries you have had. Any medical conditions you have. Whether you are or may be . What are the risks? Generally, this is a safe procedure. However, problems may occur, including: Infection. Bleeding. Allergic reactions to medicines. Damage to other structures or organs. What happens before the procedure? Medicines Ask your health care provider about: Changing or stopping your regular medicines. This is especially important if you are taking diabetes medicines or blood thinners. Taking medicines such as aspirin and ibuprofen. These medicines can thin your blood. Do not take these medicines unless your health care provider tells you to take them. Taking pyaa-eni-lzzvjbb medicines, vitamins, herbs, and supplements. Tests You may have an exam or testing, such as: X-rays of the bladder, urethra, or kidneys. CT scan of the abdomen or pelvis. Urine tests to check for signs of infection. General instructions Follow instructions from your health care provider about eating or drinking restrictions. Ask your health care provider what steps will be taken to help prevent infection. These steps may include: ?Washing skin with a germ-killing soap. ?Taking antibiotic medicine. Plan to have a responsible adult take you home from the hospital or clinic. What happens during the procedure? You will be given one or more of the following: ?A medicine to help you relax (sedative). ?A medicine to numb the area (local anesthetic). The area around the opening of your urethra will be cleaned. The cystoscope will be passed through your urethra into your bladder. Germ-free (sterile) fluid will flow through the cystoscope to fill your bladder. The fluid will stretch your bladder so that your health care provider can clearly examine your bladder aguilar. Your doctor will look at the urethra and bladder. Your doctor may take a biopsy or remove stones. The cystoscope will be removed, and your bladder will be emptied. The procedure may vary among health care providers and hospitals. What can I expect after the procedure? After the procedure, it is common to have: Some soreness or pain in your abdomen and urethra. Urinary symptoms. These include: ?Mild pain or burning when you urinate. Pain should stop within a few minutes after you urinate. This may last for up to 1 week. ?A small amount of blood in your urine for several days. ?Feeling like you need to urinate but producing only a small amount of urine. Follow these instructions at home: Medicines Take mbji-mvv-ryyluxd and prescription medicines only as told by your health care provider. If you were prescribed an antibiotic medicine, take it as told by your health care provider. Do not stop taking the antibiotic even if you start to feel better. General instructions Return to your normal activities as told by your health care provider. Ask your health care provider what activities are safe for you. If you were given a sedative during the procedure, it can affect you for several hours. Do not drive or operate machinery until your health care provider says that it is safe. Watch for any blood in your urine. If the amount of blood in your urine increases, call your health care provider. Follow instructions from your health care provider about eating or drinking restrictions. If a tissue sample was removed for testing (biopsy) during your procedure, it is up to you to get your test results. Ask your health care provider, or the department that is doing the test, when your results will be ready. Drink enough fluid to keep your urine pale yellow. Keep all follow-up visits. This is important. Contact a health care provider if: You have pain that gets worse or does not get better with medicine, especially pain when you urinate. You have trouble urinating. You have more blood in your urine. Get help right away if: You have blood clots in your urine. You have abdominal pain. You have a fever or chills. You are unable to urinate. Summary Cystoscopy is a procedure that is used to help diagnose and sometimes treat conditions that affect the lower urinary tract. Cystoscopy is done using a thin, tube-shaped instrument with a light and camera at the end. After the procedure, it is common to have some soreness or pain in your abdomen and urethra. Watch for any blood in your urine. If the amount of blood in your urine increases, call your health care provider. If you were prescribed an antibiotic medicine, take it as told by your health care provider. Do not stop taking the antibiotic even if you start to feel better. This information is not intended to replace advice given to you by your health care provider. Make sure you discuss any questions you have with your health care provider. Document Revised: 01/11/2022 Document Reviewed: 12/10/2020 [employer] Patient Education 2022 [employer]. 12/25/2023 09:15:16 Hematuria, Adult Hematuria, Adult Hematuria is blood in the urine. Blood may be visible in the urine, or it may be identified with a test. This condition can be caused by infections of the bladder, urethra, kidney, or prostate. Other possible causes include: Kidney stones. Cancer of the urinary tract. Too much calcium in the urine. Conditions that are passed from parent to child (inherited conditions). Exercise that requires a lot of energy. Infections can usually be treated with medicine, and a kidney stone usually will pass through your urine. If neither of these is the cause of your hematuria, more tests may be needed to identify the cause of your symptoms. It is very important to tell your health care provider about any blood in your urine, even if it is painless or the blood stops without treatment. Blood in the urine, when it happens and then stops and then happens again, can be a symptom of a very serious condition, including cancer. There is no pain in the initial stages of many urinary cancers. Follow these instructions at home: Medicines Take isuq-zrt-elbwshq and prescription medicines only as told by your health care provider. If you were prescribed an antibiotic medicine, take it as told by your health care provider. Do not stop taking the antibiotic even if you start to feel better. Eating and drinking Drink enough fluid to keep your urine pale yellow. It is recommended that you drink 3 4 quarts (2.8 3.8 L) a day. If you have been diagnosed with an infection, drinking cranberry juice in addition to large amounts of water is recommended. Avoid caffeine, tea, and carbonated beverages. These tend to irritate the bladder. Avoid alcohol because it may irritate the prostate (in males). General instructions If you have been diagnosed with a kidney stone, follow your health care provider's instructions about straining your urine to catch the stone. Empty your bladder often. Avoid holding urine for long periods of time. If you are female: ?After a bowel movement, wipe from front to back and use each piece of toilet paper only once. ?Empty your bladder before and after sex. Pay attention to any changes in your symptoms. Tell your health care provider about any changes or any new symptoms. It is up to you to get the results of any tests. Ask your health care provider, or the department that is doing the test, when your results will be ready. Keep all follow-up visits. This is important. Contact a health care provider if: You develop back pain. You have a fever or chills. You have nausea or vomiting. Your symptoms do not improve after 3 days. Your symptoms get worse. Get help right away if: You develop severe vomiting and are unable to take medicine without vomiting. You develop severe pain in your back or abdomen even though you are taking medicine. You pass a large amount of blood in your urine. You pass blood clots in your urine. You feel very weak or like you might faint. You faint. Summary Hematuria is blood in the urine. It has many possible causes. It is very important that you tell your health care provider about any blood in your urine, even if it is painless or the blood stops without treatment. Take miex-iih-bghytzo and prescription medicines only as told by your health care provider. Drink enough fluid to keep your urine pale yellow. This information is not intended to replace advice given to you by your health care provider. Make sure you discuss any questions you have with your health care provider. Document Revised: 12/29/2020 Document Reviewed: 12/29/2020 [employer] Patient Education 2022 [employer]. Follow Up Care 12/06/2023 14:27:33 With:REX FULLER PA-C, URL Address: [address] [place] [address] [phone] When: Unknown [facility] 12-25-2023 Note Patient Education Urology Cystoscopy Cystoscopy is a procedure that is used to help diagnose and sometimes treat conditions that affect the lower urinary tract. The lower urinary tract includes the bladder and the urethra. The urethra is the tube that drains urine from the bladder. Cystoscopy is done using a thin, tube-shaped instrument with a light and camera at the end (cystoscope). The cystoscope may be hard or flexible, depending on the goal of the procedure. The cystoscope is inserted through the urethra, into the bladder. Cystoscopy may be recommended if you have: ? Urinary tract infections that keep coming back. ? Blood in the urine (hematuria). ? An inability to control when you urinate (urinary incontinence) or an overactive bladder. ? Unusual cells found in a urine sample. ? A blockage in the urethra, such as a urinary stone. ? Painful urination. ? An abnormality in the bladder found during an intravenous pyelogram (IVP) or CT scan. Cystoscopy may also be done to remove a sample of tissue to be examined under a microscope (biopsy). Tell a health care provider about: ? Any allergies you have. ? All medicines you are taking, including vitamins, herbs, eye drops, creams, and damh-gel-grebeom medicines. ? Any problems you or family members have had with anesthetic medicines. ? Any blood disorders you have. ? Any surgeries you have had. ? Any medical conditions you have. ? Whether you are or may be . What are the risks? Generally, this is a safe procedure. However, problems may occur, including: ? Infection. ? Bleeding. ? Allergic reactions to medicines. ? Damage to other structures or organs. What happens before the procedure? Medicines Ask your health care provider about: ? Changing or stopping your regular medicines. This is especially important if you are taking diabetes medicines or blood thinners. ? Taking medicines such as aspirin and ibuprofen. These medicines can thin your blood. Do not take these medicines unless your health care provider tells you to take them. ? Taking rqah-aly-mhdexdw medicines, vitamins, herbs, and supplements. Tests You may have an exam or testing, such as: ? X-rays of the bladder, urethra, or kidneys. ? CT scan of the abdomen or pelvis. ? Urine tests to check for signs of infection. General instructions ? Follow instructions from your health care provider about eating or drinking restrictions. ? Ask your health care provider what steps will be taken to help prevent infection. These steps may include: ? Washing skin with a germ-killing soap. ? Taking antibiotic medicine. ? Plan to have a responsible adult take you home from the hospital or clinic. What happens during the procedure? ? You will be given one or more of the following: ? A medicine to help you relax (sedative). ? A medicine to numb the area (local anesthetic). ? The area around the opening of your urethra will be cleaned. ? The cystoscope will be passed through your urethra into your bladder. ? Germ-free (sterile) fluid will flow through the cystoscope to fill your bladder. The fluid will stretch your bladder so that your health care provider can clearly examine your bladder aguilar. ? Your doctor will look at the urethra and bladder. Your doctor may take a biopsy or remove stones. ? The cystoscope will be removed, and your bladder will be emptied. The procedure may vary among health care providers and hospitals. What can I expect after the procedure? After the procedure, it is common to have: ? Some soreness or pain in your abdomen and urethra. ? Urinary symptoms. These include: ? Mild pain or burning when you urinate. Pain should stop within a few minutes after you urinate. This may last for up to 1 week. ? A small amount of blood in your urine for several days. ? Feeling like you need to urinate but producing only a small amount of urine. Follow these instructions at home: Medicines ? Take wpff-gnh-ipqpqmw and prescription medicines only as told by your health care provider. ? If you were prescribed an antibiotic medicine, take it as told by your health care provider. Do not stop taking the antibiotic even if you start to feel better. General instructions ? Return to your normal activities as told by your health care provider. Ask your health care provider what activities are safe for you. ? If you were given a sedative during the procedure, it can affect you for several hours. Do not drive or operate machinery until your health care provider says that it is safe. ? Watch for any blood in your urine. If the amount of blood in your urine increases, call your health care provider. ? Follow instructions from your health care provider about eating or drinking restrictions. ? If a tissue sample was removed for testing (biopsy) during your procedure, it is up to you to get your test results. Ask your health care provider, (more content not included)... [facility] 08-08-2023 Note [facility] Cardiology Clinic Note Chief Complaint: [...] FINAL IMPRESSIONS: 1. 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 Risks of percutaneous revascularization likely outweigh benefits at this juncture. 2. Optimal medical therapy for coronary artery disease should include aspirin, high intensity statin therapy, beta zahira. 3. Will add Imdur 30 mg a day and up titrate for symptomatic relief. 4. Switch metoprolol tartrate to Coreg for better blood pressure control and improving the supply demand mismatch. 5. Consider non-cardiac (musculoskeletal) etiologies for positional back pain. 6. Follow up with Dr. Pittman in the [place] office in the next 2-4 weeks. 7. Follow up with Dr. Melvin as scheduled. PROCEDURES: Ultrasound-guided access to the right common femoral artery, limited femoral angiography, bilateral selective coronary angiography, angiography of internal mammary artery graft, angiography of the saphenous vein graft, placement of a 6-Kazakh MynxGrip closure device. Echocardiogram 12/2021: Global left ventricular systolic function is normal; EF 55 to 60%. Mild biatrial dilatation. Mild to moderate tricuspid regurgitati (more content not included)... [facility] 02-06-2023 Note [facility] Cardiology Clinic Note Chief Complaint: Patient here for 6 mo follow up CAD, hypertension, and hyperlipidemia. [facility] labs [facility] in [facility], and his PCP at the [facility] switched his statin to Crestor. He and [...] FINAL IMPRESSIONS: 1. 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 Risks of percutaneous revascularization likely outweigh benefits at this juncture. 2. Optimal medical therapy for coronary artery disease should include aspirin, high intensity statin therapy, beta zahira. 3. Will add Imdur 30 mg a day and up titrate for symptomatic relief. 4. Switch metoprolol tartrate to Coreg for better blood pressure control and improving the supply demand mismatch. 5. Consider non-cardiac (musculoskeletal) etiologies for positional back pain. 6. Follow up with Dr. Pittman in the [place] office in the next 2-4 weeks. 7. Follow up with Dr. Melvin as scheduled. PROCEDURES: Ultrasound-guided access to the right common femoral artery, limited femoral angiography, bilateral selective coronary angiography, angiography of internal mammary artery graft, angiography of the saphenous vein graft, placement of a 6-Kazakh MynxGrip closure device. Labs 09/18/2022: Total cholesterol 119, LDL 63, (more content not included)... [facility] 08-11-2022 Note Stable [facility] 08-11-2022 Note Lipid abnormalities are Currently well controlled continue simvastatin 40 mg daily [facility] 08-11-2022 Note Hypertension is well controlled 114/70 Continue amlodipine, coreg and imdur. [facility] 08-11-2022 Note [facility] CARDIOLOGY PROGR ESS NOTE [...] 12 months Assessment/Plan: Coronary artery disease involving burns paiute coronary artery of burns paiute heart without angina pectoris Goal-directed medical therapy [...] artery bypass graft Stable RTC 6 months [facility] 08-11-2022 Note Review of Systems All other systems reviewed and are negative. [facility] 08-11-2022 Note Goal-directed medica l therapy including aspirin, carvedilol, Imdur, simvastatin continue risk factor modifications- heart healthy diet, regular exercise as tolerated and continue all medications. Discussed with patient regarding uncontrolled diabetes and inflammatory processes, and concerns regarding his known coronary artery disease and recommendation to follow-up with endocrinology- Voiced agreement and understanding [facility] 05-23-2022 Note PROCEDURE: XR LSPINE MIN 4 [...] authenticated by: MACY MICHAEL Date: 2022-05-23 08:14 [facility] 05-23-2022 Note PROCEDURE: XR HIP LT 2 [...] authenticated by: MACY MICHAEL Date: 2022-05-23 08:09 [facility] 12-30-2021 Note MR#: [id number] [facility] Pt. Name: Kingsley Naranjo Admitted: 12/28/2021 Discharged: [...] as bypass graft angiography. Coronary angiogram showed burns paiute arteries left main is calcified but patent. [...] by: Adán Pittman M.D. 12/31/2021 02:19 P ____ Adán Pittman M.D. I have reviewed this discharge summary and confirmed the resident's documentation. Please note that there may be additional documentation from me. Date Dict: 12/29/2021/12:08 Geo/Peterson Jensen MD Date Trans: 12/30/2021 09:11 A/jeanne [id number] cc: Jennifer Melvin M.D. [place] [id number] [facility] [place] [address] [facility] Hospital course Narrative No data available for this section [facility] Discharge instructions No data available for this section [facility] note No data available for this section [facility] Summary Purpose Family History No Family History Records FoundNo Family History Records FoundNo Family History Records FoundNo Family History Records FoundNo Family History Records Found No data available for this section No data available for this section Advance Directives No Advanced Directives Records FoundNo Advanced Directives Records FoundNo Advanced Directives Records FoundNo Advanced Directives Records FoundNo Advanced Directives Records Found Additional Source Comments (unrecognized sect ion and content) No Status Records FoundNo Status Records FoundNo Status Records FoundNo Status Records FoundNo Status Records Found INFORMATION SOURCE (unrecogn ized section and content) DATE CREATED AUTHOR 01/08/2022 [facility] DATE CREATED AUTHOR AUTHOR'S ORGANIZ ATION 08/06/2022 [facility] DATE CREATED AUTHOR AUTHOR'S ORGANIZ ATION 07/26/2023 [facility] EPIC DATE CREATED AUTHOR AUTHOR'S ORGANIZ ATION 08/09/2023 [facility] DATE CREATED AUTHOR AUTHOR'S ORGANIZ ATION 12/25/2023 [facility] Patient Care team informatio n (unrecognized section and content) Personnel Name: Jennifer Melvin MD Address: Address: [address] [place] [address] Personnel Name: Jennifer Melvin MD Address: Address: [address] [place] [address] FOR RECORDS PERTAINING TO PATIENTS WHO ARE [...] BE BASED ON THE PRIMARY CLINICAL RECORDS. [facility]. provides no warranty or guarantee of the accuracy or completeness of information in this document.
--- NOTE | 2023-12-26 12:03 | CT_ITS ---
[address] [address] Patient Name: KINGSLEY JENNINGS MRN: [id number] date: 1935 Sex: M Assigned Patient Location: LAB Current Patient Location: Accession/Order Number: [id number] Exam Date: 12/26/2023 12:40 Report Date: 12/27/2023 15:34 At the request of: REX FULLER Procedure: CT abdomen pelvis wo/w con EXAMINATION: CT abdomen pelvis wo/w con HISTORY: Gross Hematuria, Bladder Mass COMPARISON: No relevant comparison available. TECHNIQUE: Axial, Coronal, and Sagittal images were obtained without and/or with IV contrast as indicated by examination type. Dose reduction techniques were achieved by using automated exposure control and/or adjustment of mA and/or kV according to patient size and/or use of iterative reconstruction technique. FINDINGS: LUNG BASES: 6 mm opacity within versus adjacent the right minor fissure. Mild bronchiectasis and emphysematous changes within lung bases. LIVER: No enlargement, atrophy, suspicious density, or significant focal lesion. BILIARY: No dilatation or calcification. PANCREAS: No lesion, fluid collection, or abnormal duct dilatation. SPLEEN: No enlargement or focal lesion. ADRENALS: No mass or enlargement. KIDNEYS: No mass, obstruction, or calcification. BOWEL/MESENTERY: No visible mass, obstruction, or bowel wall thickening. AORTA/VASCULAR: No aneurysm or dissection. RETROPERITONEUM: No mass or adenopathy. LYMPH NODES: No adenopathy. URINARY BLADDER: Protruding from posterior right wall is a 2.3 x 2.1 x 1.1 cm mass with peripheral calcifications. Enlarged prostate protrudes into the base of the bladder. PELVIC ORGANS: Enlarged and protruding into base of bladder. ABDOMINAL WALL: Prior right inguinal hernia repair. BONES: No bony lesion or fracture. OTHER: Negative. CT/CT abdomen pelvis wo/w con IMPRESSION: 1. 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 No appreciable extension through the wall. No lymphadenopathy. 2. Enlarged prostate protruding into base of bladder. 3. 6 mm nodule versus scarring within right minor fissure incompletely included on today's study. Given patient's history of urinary bladder mass consider CT chest with IV contrast for further evaluation. Electronically authenticated by: MACY MICHAEL Date: 12/27/2023 15:34
[2023-12-26 12:13] LABS: Estimated GFR (African America >60 (>=60); Estimated GFR (Non-African Ame >60 (>=60)
== END 2023-12-26 11:57 | disposition home or self-care (01) ==
LOC: LAB 11:56
PROVIDERS: PCP Family Medicine; Visit Provider Physician Assistant
DX: R31.0 Gross hematuria (principal); N32.89 Other specified disorders of bladder; N20.0 Calculus of kidney; N40.1 Benign prostatic hyperplasia with lower urinary tract symptoms
CPT/HCPCS: 36415; 74178; 82565; Q9967

== ENCOUNTER 2024-01-24 07:55 | Outpatient (OUT) | payer MEDICARE, OTHER, SELFPAY ==
--- NOTE | 2024-01-24 08:01 | ECG_ITS ---
The [facility] Test Date: 2024-01-24 Pat Name: KINGSLEY JENNINGS Department: Room: - Gender: Male Senior [employer]s [employer]: : 1935 Requested By: EUSEBIA GALINDO Order Number: [id number] Reading MD: ANA SEE Measurements Intervals Connell Rate: 54 P: 40 NE: 198 QRS: -7 QRSD: 153 T: -5 QT: 424 QTc: 402 Interpretive Statements SINUS BRADYCARDIA RIGHT BUNDLE BRANCH BLOCK [120+ ms QRS DURATION, UPRIGHT V1, 40+ ms S IN I/aVL/V4/V5/V6] Electronically Signed On 01-24-2024 22:25:39 EDT by ANA SEE
--- NOTE | 2024-01-24 08:01 | XR_ITS ---
The [address] [address] Patient Name: KINGSLEY JENNINGS MRN: [id number] date: 1935 Sex: M Assigned Patient Location: [facility] Current Patient Location: [facility] Accession/Order Number: [id number] Exam Date: 01/24/2024 08:58 Report Date: 01/24/2024 09:20 At the request of: EUSEBIA GALINDO Procedure: XR chest 2V PROCEDURE: XR chest 2V DATE: 01/24/2024 7:58 AM CDT COMPARISONS: 02/16/2018 and 10/13/2023 CLINICAL INDICATION: 88 years Male Preop exam FINDINGS: The cardiomediastinal silhouette and pulmonary vasculature are within normal limits. Poststernotomy changes are again identified. There are a few scattered subcentimeter granulomata of the lungs with the lungs otherwise clear. There is no evidence of pleural effusion or pneumothorax. XR/XR chest 2V IMPRESSION: Poststernotomy chest radiograph is essentially within normal limits and stable. Electronically authenticated by: PANDA BARNES Date: 01/24/2024 09:20
--- OUTSIDE RECORDS SUMMARY | 2024-01-24 08:18 | XMS_ITS | CCD ---
Author Organization [facility] Care Team Providers Care Prenatal Genetic Counselor Name Role Phone ELTAHAWY, EHAB A Attending Unavailable ELTAHAWY, EHAB Anna Admitting Unavailable DOUGYJONASJENNIFER Referring Unavailable DOUGY, JENNIFER [...] ., DR RODRIGUEZ Admvashti Unavailable ELTAHAWY, DR VALLEOJ Consulting Unavailable HOY ., DR RODRIGUEZ Primary [...] Wheeler Consulting Unavailable CK NIXON Consulting Unavailable DOUGY ., DR RODRIGUEZ Primary Care Unavailable CK NIXON Attending Unavailable CK NIXON Admitting Unavailable CK NIXON Consulting Unavailable HOY ., DR RODRIGUEZ Primary Care Unavailable CK NIXON Attending Unavailable CK NIXON Admitting Unavailable HOY ., DR RODRIGUEZ Consulting Unavailable MEERA ., DR RODRIGUEZ Primary Care Unavailable MEERA Bagley, DR RODRIGUEZ Attending Unavailable MEERA ., DR RODRIGUEZ Admitting Unavailable Gay Wheeler Consulting [facility]available [facility] VALLEJO Consulting Unavailable VINH GUZMAN Attending Unavailable TOYA, ADÁN Attending Unavailable TOYA, ADÁN Attending Unavailable Jennifer Melvin Primary Care Physician REX FULLER Attending Unavailable Jennifer Melvin Referring Unavailable REX FULLER Attending Unavailable Jennifer Melvin Referring Unavailable REX FULLER Admitting Unavailable REX FULLER Attending Unavailable Orestes MOBLEY Attending Unavailable Hamida Sanz Attending Unavailable Orestes MOBLEY Referring Unavailable Orestes MOBLEY Admitting Unavailable Orestes MOBLEY Attending Unavailable Orestes MOBLEY Attending Unavailable Allergies Allergy Classification Reported Allergen(s) Allergy Type Date of Onset Reaction(s) Facility (2 sources) No Known Medication Allergies; Translations: [No Known Medication Allergies] Propensity to adverse reactions (disorder) [facility] Repository Medications Current Medications Medication Drug Class(es) Dates Sig (Normalized) Sig (Original) amLODIPine 2.5 mg oral tablet (4 sources) Dihydropyridine Calcium Channel Zahira Start: 12-25-2023 take 1 tablet by mouth once daily amLODIPine 2.5 mg Tab 2.5 mg = 1 tab(s), Oral, Daily Start Date: 12/25/23 Status: Ordered aspirin 81 mg oral tablet (4 sources) Platelet Aggregation Inhibitor, Nonsteroidal Anti-inflammatory Drug Start: 01-15-2019 take 1 mg by mouth once daily aspirin 81 mg oral tablet mg tab(s), Oral, Daily, Refills(s) 0 Start Date: 01/15/19 Status: Ordered carvedilol 3.125 mg oral tablet (4 sources) alpha-Adrenergic Zahira, beta-Adrenergic Zahira Start: 12-25-2023 take 2 tablets by mouth once daily carvedilol 3.125 mg Tab 6.25 mg = 2 tab(s), Oral, Daily Start Date: 12/25/23 Status: Ordered diclofenac sodium 50 mg delayed release oral tablet (4 sources) Nonsteroidal Anti-inflammatory Drug Start: 12-25-2023 take 1 tablet by mouth three times daily diclofenac sodium 50 mg Oral EC Tab 50 mg = 1 tab(s), Oral, TID Start Date: 12/25/23 Status: Ordered levothyroxine sodium 0.137 mg oral tablet (4 sources) l-Thyroxine Start: 12-25-2023 take 0.5 tablet by mouth once daily levothyroxine 137 mcg (0.137 mg) Tab 1/2 tab(s), Oral, Daily Start Date: 12/25/23 Status: Ordered Nitro 0.4 mg Tab (4 sources) Start: 01-15-2019 Nitro 0.4 mg Tab = 1 tab(s), SubLingual, q5min, PRN Chest pain Start Date: 01/15/19 Status: Ordered Psyllium (4 sources) Start: 12-25-2023 Metamucil Oral Start Date: 12/25/23 Status: Ordered rosuvastatin calcium 20 mg oral tablet (4 sources) HMG-CoA Reductase Inhibitor Start: 12-25-2023 take 1 tablet by mouth once daily rosuvastatin 20 mg Tab 20 mg = 1 tab(s), Oral, Daily Start Date: 12/25/23 Status: Ordered tamsulosin hydrochloride 0.4 mg oral capsule (4 sources) alpha-Adrenergic Zahira Start: 12-25-2023 take 1 capsule by mouth once daily tamsulosin 0.4 mg Cap 0.4 mg = 1 cap(s), Oral, Daily Start Date: 12/25/23 Status: Ordered vitamin B12 (4 sources) Vitamin B12 Start: 01-15-2019 Vitamin B12 See Instructions Start Date: 01/15/19 Status: Ordered Completed/Discontinued Medications Medication Drug Class(es) Dates Sig (Normalized) Sig (Original) cholecalciferol 0.05 mg oral capsule (4 sources) Vitamin D Start: 01-15-2019 take 1 capsule by mouth once daily cholecalciferol 2000 intl units oral capsule 2,000 International_Unit = 1 cap(s), Oral, Daily Start Date: 01/15/19 Status: Ordered ciprofloxacin 500 mg oral tablet (4 sources) Quinolone Antimicrobial Start: 12-25-2023 take 1 tablet by mouth once daily Cipro 500 mg Tab 500 mg = 1 tab(s), Oral, Daily, take one tab day before procedure and one tab after procedure, # 2 tab(s), Refills(s) 0, Pharmacy: [id number]/pharmacy #[id number], 178, cm, 12/25/23 8:48:00 EDT, Height/Length Dosing, 73, kg, 12/25/23 8:48:00 EDT, Weight Dosing Start Date: 12/25/23 Status: Ordered 24 hr isosorbide mononitrate 30 mg extended release oral tablet (4 sources) Nitrate Vasodilator Start: 01-15-2019 take 1 tablet by mouth once daily in the morning isosorbide mononitrate 30 mg ER Tab 1/2 tab, Oral, qAM Start Date: 01/15/19 Status: Ordered Problems Active Problems Problem Classification Problem Date Documented Da te Episodic/Chronic Abdominal hernia (4 sources) Right inguinal hernia 01-15-2019 Episodic Abdominal pain (4 sources) Right inguinal pain 04-15-2019 Episodic Calculus of urinary tract (5 sources) Kidney stone; Translations: [Calculus of kidney] Onset: 12-25-2023 Episodic Cardiac dysrhythmias (1 source) Ventricular tachycardia; Translations: [VENTRICULAR TACHYCARDIA] Onset: 12-21-2021 Chronic Conduction disorders (4 sources) Right bundle branch block 01-15-2019 Chronic Coronary atherosclerosis and other heart disease (20 sources) Atherosclerotic heart disease of [place] coronary artery without angina pectoris; Translations: [Angina pectoris, unspecified] Onset: 12-20-2021 Chronic Disorders of lipid metabolism (15 sources) Pure hypercholesterolemia, unspecified; Translations: [Mixed hyperlipidemia] Onset: 12-21-2021 Chronic Essential hypertension (6 sources) Essential (primary) hypertension; Translations: [Hypertensive disorder] Onset: 08-11-2022 Chronic Genitourinary symptoms and ill-defined conditions (11 sources) Blood in urine; Translations: [Gross hematuria] Onset: 12-25-2023 Episodic Heart valve disorders (1 source) Rheumatic tricuspid insufficiency; 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 TRICUSPID INSUFFICIENCY] Onset: 12-22-2021 Chronic Hyperplasia of prostate (9 sources) Benign prostatic hypertrophy with outflow obstruction; Translations: [Benign prostatic hyperplasia with lower urinary tract symptoms] Onset: 12-25-2023 Chronic Other diseases of bladder and urethra (1 source) Disorder of bladder; Translations: [Other specified disorders of bladder] Onset: 12-25-2023 Chronic Other ear and sense organ disorders (4 sources) Hearing loss 12-25-2023 Chronic Other fractures [...] THOR SUB] Onset: 05-14-2022 Episodic Thyroid disorders (4 sources) Hypothyroidism 01-15-2019 Chronic Unclassified (1 source) CONTACT W/AND (SUSP) EXPOS COVID-19; Translations: [CONTACT W/AND (SUSP) EXPOS COVID-19] Onset: 12-27-2021 Past or Other Problems Problem Classification Problem Date Documented Da te Episodic/Chronic Coronary atherosclerosis and other heart disease (2 sources) Presence of aortocoronary bypass graft; Translations: [Presence of aortocoronary bypass graft] Onset: 08-11-2022 Episodic Other aftercare (1 source) 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 Name: KINGSLEY NARANJO Shahrzad SowB./Sex: 1935 Male Med Rec #: [id number] Physician: Orestes MOBLEY MD Financial #: [id number] Pt. Type: O Room/Bed: / Admit/Disch: 01/15/24 09:34:43 - Institution: Case Times FTURO Entry 1 Patient Times In Room 01/15/24 11:04:00 Out Room 01/15/24 11:16:00 Procedure Times Start 01/15/24 11:07:00 Stop 01/15/24 11:11:00 Anesthesia Times Last Modified By: Yasmin MARQUIS, Luanne Guardado 01/15/24 11:11:03 Case Attendance FTURO Entry 1 Entry 2 Entry 3 Case Attendee MATEO DICK, Orestes Hoffman RN, Deborah Rodríguez Role Performed Surgeon - Primary Collections Analyst - Primary Scrub - Primary Time In 01/15/24 11:04:00 01/15/24 11:04:00 01/15/24 11:04:00 Time Out 01/15/24 11:16:00 01/15/24 11:16:00 01/15/24 11:16:00 Procedure CYSTOSCOPY LOCAL(.) CYSTOSCOPY LOCAL(.) CYSTOSCOPY LOCAL(.) Comments Last Modified By: Yasmin MARQUSI, Luanne Hoffman RN, Luanne Hoffman RN, Luanne Guardado 01/15/24 Shagufta Guardado 01/15/24 Shagufta Guardado 01/15/24 11:11:07 11:11:07 11:11:07 Entry 4 Case Attendee MIKAYLA SALVADOR MD Role Performed Staff - Other Time In 01/15/24 11:04:00 Time Out 01/15/24 11:16:00 Procedure CYSTOSCOPY LOCAL(.) Comments OBSERVING Last Modified By: Yasmin MARQUIS, Luanne Guardado 01/15/24 11:11:07 Surgical Procedures FTURO Entry 1 Procedure Description Procedure CYSTOSCOPY LOCAL Modifiers . Surgeon Description CYSTOSCOPY LOCAL Primary Procedure Yes Primary Surgeon Orestes MOBLEY MD Start 01/15/24 11:07:00 Stop 01/15/24 11:11:00 Anesthesia Type Local Surgical Service Urology Wound Class 2 - Clean-Contaminated Last Modified By: Luanne Hoffman RN 01/15/24 11:11:14 General Case Data FTURO Pre-Care Text: Classifies surgical wound, implements aseptic technique, initiates traffic control Entry 1 Case Information OR URO 1 FT Case Level None Wound Class 2 - Clean-Contaminated Specialty Urology Preop Diagnosis GROSS HEMATURIA / Postop Same As Preop Yes BLADDER MASS Postop Diagnosis GROSS HEMATURIA / Outcomes Met? Yes BLADDER MASS Last Modified By: Luanne Hoffman RN 01/15/24 10:59:14 Post-Care Text: The patient is free from signs and symptoms of infection EU IntraOp - FTURO Pre-Care Text: Implements protective measures prior to operative or invasive procedure, confirms identity before the operative or invasive procedure, verifies operative procedure, surgical site, and laterality Entry 1 EU Perioperative Protocols Procedure(s) CYSTOSCOPY LOCAL(.) Patient Identity Birthday, ID Band Verified (select at Check, Patient least 2): Participation Consents / H and P H&P, Surgery/Procedure Operative Site N/A Verified Consent Marking Verified Surgical Site Yes Laterality Verified n/a Verified Procedure Verified Yes Correct Patient Yes Position Verified Availability Equipment, Medication Time Out MTAEO DICK, Orestes Beckman, Verified (If Participants Yasmin MARQUIS, Luanne Applicable) Jw Tyler Laura C, NKANSAH-AMANKRA MD, MIKAYLA Time Out Complete 01/15/24 11:07:00 Allergies Reviewed? Yes Allergies Reviewed Self/Patient With Body Position Supine Prep Area PENIS Prep Agents Betadine Solution Skin. Condition Unable to Visualize Description PARTIALLY CLOTHED Additional None Specimens Collected Vitals - EU Blood Pressure 126/73 Pulse 80 bpm Respirations 18 br/min SPO2 I&O - EU Outcomes Met? Yes Last Modified By: Luanne Hoffman RN 01/15/24 11:09:14 Post-Care Text: The patient is free from signs and symptoms of injury caused by extraneous objects Sign Out FTURO Entry 1 Before Patient Leaves OR Nurse verbally Yes Nurse verbally Yes confirms with the confirms with the team the name of team that the procedure(s) instrument, sponge, recorded and needle counts are correct (or N/A) Nurse verbally n/a Nurse verbally n/a confirms with the confirms with the team how the team whether there specimen is labeled are any equipment (including patient problems to be name), if applicable addressed Sign Out Complete 01/15/24 11:11:00 Last Modified By: Luanne Hoffman RN 01/15/24 11:11:05 Case Comments Finalized By: Luanne Hoffman RN Document Signatures Signed By: Luanne Hoffman RN 01/15/24 11:19 [facility] Main OR Preoperative Recordo n 01-15-2024 Main OR Preoperative Record Main OR Preoperative Record Holding Area Document Type FTURO Summary Primary Physician: Orestes MOBLEY MD Finalized Date/Time: 01/15/24 10:31:41 Pt. Name: KINGSLEY NARANJOO.B./Sex: 1935 Male Med Rec #: [id number] Physician: Orestes MOBLEY MD Financial #: [id number] Pt. Type: O Room/Bed: / Admit/Disch: 01/15/24 09:34:43 - Institution: Case Times Holding FTURO Pre-Care Text: Verifies consent for planned procedure, identifies individual values and wishes concerning care, includes family members in perioperative teaching Secures patient's records' belongings, and valuables, maintains patient's dignity and privacy, and maintains patient confidentiality Entry 1 In Holding 01/15/24 10:29:00 Outcomes Met? Yes Last Modified By: Mari Estrella LPN 01/15/24 10:29:32 Post-Care Text: The patient participates in decisions affecting his or her perioperative plan of care The patient's right to privacy is maintained Surgery Checklist FTURO Entry 1 Patient Birthday, Patient Procedure History and Physical, Identification: Participation Verification: Surgical Consent, With Patient NPO after Midnight: n/a Limitations: up ad lucía Complaints of Pain: No Skin Integrity Intact, [place], Warm, & Dry Vitals - EU Blood Pressure 126/73 Pulse 80 bpm Respirations 18 br/min SPO2 Additional None Specimens Collected Last Modified By: Mari Estrella LPN 01/15/24 10:31:36 Finalized By: Mari Estrella LPN Document Signatures Signed By: Mari Estrella LPN 01/15/24 10:31 [facility] Operative Reporton Operative Report Operative Report Patient: KINGSLEY NARANJO Age: 88 years Sex: Male : 1935 Associated Diagnoses: None Author: Orestes MOBLEY MD Procedure Operative Information Details: Date/ Time: 01/15/2024 11:14:00. Pre-Op Dx: Bladder Mass - D41.4, Gross Hematuria - R31.0. Post-Op Dx: Same. Anesthesia Type: Local. Procedure: Local Cystoscopy. Complications: None. Risks/Benefits/Informe d Consent: Surgical risks, benefits, details of the procedure have been explained to the patient, Full informed consent has been obtained. Intraoperative Information Prepped: Patient is brought back to the endoscopy suite, Patient is placed in supine position, Patient prepped in the usual fashion with Betadine solution, 2% Xylocaine Jelly is placed per Urethra, After waiting several minutes the Cystoscope is introduced. The Urethra is: Normal. The Prostatic Urethra is: Obstructed. 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 Necrotic tissue is noted over it. A few small 1 cm satellite lesions adjacent to it. On the left wall, there are some sheets of small mildly papillary lesions suggestive of TCC.. The ureteral orifices: Show efflux of clear urine. Devices Implanted: None. Removal: Cystoscope is removed, The patient tolerated it well. Postoperative Information Discharge: Patient is discharged home with antibiotic coverage, Follow up arranged. He will be scheduled for cystoscopy and TURBT under anesthesia.. Normal [facility] Comment on above: Result Comment: Elec tronically Signed By: Orestes MOBLEY MD\.br\Date and Time Signed: 01/15/24 11:16 EDT Urine Cytology ([facility])on 12-30-2023 Microscopic exam Cytology (U) [Interp] Diagnosis Info Invalid Interpretation Code [facility] Comment on above: Result Comment: A:Ur ine,Urine:Voided Interpretation - Atypical Urothelial Cells; Favor Reactive Process. Adequate cellularity for evaluation. MicroScopic Description - Adequacy - Adequate Gross Description Site ID:A color Yellow fixative Alcohol Specimen designated Urine received in alcohol preservative and labeled with the patient?s name, consists of 90ml clear yellow fluid. Electronically signed by : on: 12/30/2023 11:24:24 Performed By: #### 1 [id number] #### [facility] [address] [place] [address] Ambulatory Visit Summaryon 0 12-25-2023 Ambulatory Visit [...] REX FULLER PA-C, URL When: Where: [address] [place] [address] [id number] Medications What How Much When Instructions Unchanged [...] ? Un (more content not included)... Normal [facility] Ambulatory Visit Summary Ambulatory Visit Summary [...] REX FULLER PA-C, URL When: Where: [address] [place] [address] [id number] Medications What How Much When Instructions Unchanged [...] ? Un (more content not included)... Normal [facility] Urine Cytology ([facility])on 0 12-25-2023 Method of Extraction Voided Normal [facility] Comment on above: Performed By: #### 1 [id number] #### [facility] [address] Number of Jars 1 Invalid Interpretation Code [facility] Comment on above: Performed By: #### 1 [id number] #### [facility] [address] [place] [address] Specimen Urine Normal [facility] Comment on above: Performed By: #### 1 [id number] #### [facility] [address] [place] [address] Type of Service Technical Only Normal [facility] Comment on above: Performed By: #### 1 [id number] #### [facility] [address] [place] [address] Urology Office/Clinic Noteon 12-25-2023 Urology Office/Clinic Note [...] for cytology -Schedule CTU -Will schedule cystoscopy (september be better to schedule in OR for [...] may act (more content not included)... Normal [facility] Comment on above: Result Comment: Elec tronically Signed By: REX FULLER PA-C\.br\Date and Time Signed: 12/25/23 09:32 EDT\.br\Electronically Co-Signed By: Hortencia Thomas\.br\Date and Time Co-Signed: 12/25/23 09:24 EDT Office Visiton 08-08-2023 Follow-up visit [id number] Fernie Naranjo D 1935 M Date Provider Department Center 08/08/2023 [address] [facility] No family history on file Level of Service:15534 NE OFFICE/OUTPATIENT ESTABLISHED LOW MDM 20 MIN [facility] Office Visiton 02-06-2023 Follow-up visit [id number] Fernie Naranjo D 1935 M Date Provider Department Center 02/06/2023 [address] [facility] No family history on file Level of Service:13423 NE OFFICE/OUTPATIENT ESTABLISHED LOW MDM 20-29 MIN Normal [facility] Office Visiton 08-11-2022 Follow-up visit [id number] Fernie Naranjo D 1935 M Date Provider Department Center 08/11/2022 [facility] No family history on file Level of Service:99194 NE OFFICE/OUTPATIENT ESTABLISHED MOD MDM 30-39 MIN Reason for Visit and Comments: Follow-up [978806] - 6 mo f/u Medication Problem [65] - Dr. Melvin took him off of Amlodipine for 2 weeks due to constipation. However, it made no difference so far. Kingsley starts back on it tomorrow, August 12. Normal [facility] OCC BLD IMMUNO SCREENon - OCCULT BLOOD Negative Normal NEGATIVE [facility] Comment on above: Performed By: #### O BSCRN #### [facility] [address] [place] [address] Dr. Gricel Busch MRI LSPINE WO CONon 06-09-19 23 MRI LSPINE WO CON EXAMINATION: MRI LSPINE WO CON HISTORY: Lumbar radiculopathy COMPARISON: No [...] GAY WHEELER Date: 2022-06-09 09:46 Normal [address] [facility] CT TSPINE WO CONon 2 CT TSPINE [...] by: MACY MICHAEL Date: 2022-01-05 16:34 Normal [facility] CBC COMPLETE BLOOD COUNTon 0 12-29-2021 Erythrocyte distribution width (RBC) [Ratio] 13.4 % Normal 11.5-15.0 [facility] Comment on above: Order Comment: No: D o not add to previous draw Performed By: #### 5 [id number] #### [facility] [address] [place] [address], [facility] Hematocrit (Bld) [Volume fraction] 38.5 % Low 39.0-50.0 [facility] Comment on above: Order Comment: No: D o not add to previous draw Performed By: #### 5 [id number] #### [facility] [address] [place] [address], [facility] Hemoglobin (Bld) [Mass/Vol] 13.5 g/dL Normal 13.0-17.0 [facility] Comment on above: Order Comment: No: D o not add to previous draw Performed By: #### 5 [id number] #### [facility] [address] [facility] [address], [facility] MCH (RBC) [Entitic mass] 32.4 pg Normal 27.0-33.0 [facility] Comment on above: Order Comment: No: D o not add to previous draw Performed By: #### 5 [id number] #### [facility] [address] [place] [id number], [facility] MCHC (RBC) [Mass/Vol] 35.1 g/dL High 32.0-35.0 [facility] Comment on above: Order Comment: No: D o not add to previous draw Performed By: #### 5 [id number] #### [facility] [address] [place] [address], [facility] MCV (RBC) [Entitic vol] 92.3 fL Normal 82.0-98.0 [facility] Comment on above: Order Comment: No: D o not add to previous draw Performed By: #### 5 [id number] #### [facility] [address] [place] [address], [facility] Nucleated RBC/100 WBC (Bld) [Ratio] 0 % Normal 0-0 [facility] Comment on above: Order Comment: No: D o not add to previous draw Performed By: #### 5 [id number] #### [facility] [address] [place] [address], [facility] PLAT CNT 165 10*3/uL Normal 150-400 [facility] Comment on above: Order Comment: No: D o not add to previous draw Performed By: #### 5 [id number] #### [facility] [address] [facility] [place] [address], [facility] RBC (Bld) [#/Vol] 4.17 10*6/uL Low 4.20-5.70 [facility] Comment on above: Order Comment: No: D o not add to previous draw Performed By: #### 5 [id number] #### [facility] [address] [facility] [place] [address], [facility] WBC (Bld) [#/Vol] 8.33 10*3/uL Normal 4.00-10.60 [facility] Comment on above: Order Comment: No: D o not add to previous draw Performed By: #### 5 [id number] #### [facility] [address] [place] [address], [facility] CREATININE BLOODon 2 Creatinine [Mass/Vol] 0.82 mg/dL Normal 0.70-1.30 [facility] Comment on above: Order Comment: No: D o not add to previous draw Performed By: #### 2 [id number] #### [facility] [address] GFR/1.73 sq M.predicted among non-blacks MDRD (S/P/Bld) [Vol rate/Area] mL/min/{1.73_m2} Normal >60 [facility] Comment on above: Order Comment: No: D o not add to previous draw Result Comment: [facility]'s estimated glomerular filtration rate (eGFR) will [...] individuals. Performed By: #### 2 [id number] #### [facility] [address] Cardiovascular Lab Reporton 12-29-2021 Cardiovascular Lab Report [facility] Patient Name: [facility] D MR #: [id number] Department of Physician: Adeline Carlos M.D. Division of Service Date: 12/28/2021 Cardiology Birthdate: 1935 Adult Cardiovascular Room #: 3AB 113013 [facility] [address] [place] [address] Cardiovascular Laboratory Report FINAL IMPRESSIONS: 1. 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 Sharif in the [place] office in the next 2-4 weeks. 7. Follow up with Dr. Melvin as scheduled. PROCEDURES: Ultrasound-guided access to the right common femoral artery, limited femoral angiography, bilateral selective coronary angiography, angiography of internal mammary artery graft, angiography of the saphenous vein graft, placement of a 6-Haitian MynxGrip closure device. METHODS: After risks, benefits, [...] was performed. This was upsized to a 6-Haitian 11 cm sheath. Bilateral selective coronary angiography [...] the procedure. All catheters were removed. A 6-[place]aitian MynxGrip closure device was deployed per protocol [...] marginals. Distal filling is seen into the [place] obtuse marginal via saphenous vein graft. Just [...] patent (more content not included)... Normal [facility] TROPONIN-Ion 12-28-2021 Troponin I.cardiac [Mass/Vol] 0.09 ng/mL High 0.00-0.04 [facility] Comment on above: Order Comment: No: D o not add to previous draw Result Comment: REFE RENCE RANGES: 0.00 - 0.04 ng/ml NORMAL 0.05 - 0.50 ng/ml INDETERMINATE > 0.50 ng/ml CONSISTENT WITH AN M.I. Performed By: #### 3 [id number] #### [facility] [address] [place] [address], [facility] CBC AUTO DIFFon 12-26-2021 BASO # 0.0 103/ul Normal 0.0-0.1 [facility] Comment on above: Performed By: #### C BC #### [facility] [address] [address] [address] Gricel Busch Basophils/100 WBC (Bld) 0.6 % Normal 0.2-2.0 [facility] Comment on above: Performed By: #### C BC #### [facility] [address] [place] [address] Dr. Gricel Busch EO # 0.1 103/ul Normal 0.0-0.[address] [facility] Comment on above: Performed By: #### C BC #### [facility] [address] [place] [address] Dr. Gricel Busch Eosinophils/100 WBC (Bld) 1.8 % Normal 0.9-7.0 [facility] Comment on above: Performed By: #### C BC #### [facility] [address] [place] [address] Dr. Gricel Busch Erythrocyte distribution width (RBC) [Ratio] 13.1 % Normal 11.0-15.0 [facility] Comment on above: Performed By: #### C BC #### [facility] [address] [place] [address] Dr. Gricel Busch Hematocrit (Bld) [Volume fraction] 42.4 % Normal 42.0-54.0 [facility] Comment on above: Performed By: #### C BC #### [facility] [address] [place] [address] Dr. Gricel Busch Hemoglobin (Bld) [Mass/Vol] 13.9 g/dL Critically low 14.0-18.0 [facility] Comment on above: Performed By: #### C BC #### [facility] [address] [place] [address] Dr. Gricel Busch IG # 0.03 10e3/ul Normal 0.00-0.[address] [facility] Comment on above: Performed By: #### C BC #### [facility] [address] [place] [address] Dr. Gricel Busch IG % 0.4 % Normal 0.0-0.[address] [facility] Comment on above: Performed By: #### C BC #### [facility] [address] [place] [address] Dr. Gricel Busch LYMPH # 1.2 103/ul Normal 1.2-3.8 [facility] Comment on above: Performed By: #### C BC #### [facility] [address] [place] [address] Dr. Gricel Busch Lymphocytes/100 WBC (Bld) 16.9 % Critically low 20.5-60.0 [facility] Comment on above: Performed By: #### C BC #### [facility] [address] [place] [address] Dr. Gricel Busch MANUAL DIFF REQ NO Normal [facility] Comment on above: Performed By: #### C BC #### [facility] [address] [place] [address] Dr. Gricel Busch MCH (RBC) [Entitic mass] 31.3 pg Normal 25.9-34.0 [facility] Comment on above: Performed By: #### C BC #### [facility] [address] [place] [address] Dr. Gricel Busch MCHC (RBC) [Mass/Vol] 32.8 g/dL Normal 29.9-35.2 [facility] Comment on above: Performed By: #### C BC #### [facility] [address] [place] [address] Dr. Gricel Busch MCV (RBC) [Entitic vol] 95.5 fL Critically high 80.0-94.0 [facility] Comment on above: Performed By: #### C BC #### [facility] [address] [place] [address] Dr. Gricel Busch MONO # 0.8 103/ul Normal 0.3-0.8 [facility] Comment on above: Performed By: #### C BC #### [facility] [address] [place] [address] Dr. Gricel Busch Monocytes/100 WBC (Bld) 10.9 % Normal 1.7-12.0 [facility] Comment on above: Performed By: #### C BC #### [facility] [address] [place] [address] Dr. Gricel Busch NEUT # 4.9 103/ul Normal 1.4-6.5 [facility] Comment on above: Performed By: #### C BC #### [facility] [address] [place] [address] Dr. Gricel Busch Neutrophils/100 WBC (Bld) 69.4 % Normal 43.0-75.0 [facility] Comment on above: Performed By: #### C BC #### [facility] [address] [place] [address] Dr. Gricel Busch Platelet mean volume (Bld) [Entitic vol] 9.6 fL Normal 9.5-13.5 [facility] Comment on above: Performed By: #### C BC #### [facility] [address] [place] [address] Dr. Gricel Busch PLT 191 103/ul Normal 150-[address] [facility] Comment on above: Performed By: #### C BC #### [facility] [address] [place] [address] Dr. Gricel Busch RBC 4.44 106/ul Critically low 4.70-6.10 [facility] Comment on above: Performed By: #### C BC #### [facility] [address] [place], [place] [id number] Dr. Gricel Busch WBC 7.1 103/ul Normal 4.0-11.0 [facility] Comment on above: Performed By: #### C BC #### [facility] [address] [place] [address] Dr. Gricel Busch Covid-19 PCR (CVDTB)on 12-12 SARS-CoV-2 (COVID-19) RNA NIR+probe Ql (Unsp spec) Not detected Normal NOT DETECTED [facility] Comment on above: Result Comment: This test is not yet approved or cleared by the [place] FDA. When there are no FDA-approved or cleared tests available, and other criteria are met, FDA can make tests available under an emergency access mechanism called an Emergency Use Authorization (EUA). The EUA for this test is supported by the [place] of Health and Human Service's (HHS's) declaration [...] SARS-CoV-2. Performed By: #### C VDTB #### [facility] [address] [place] [address] Dr. Gricel Busch PROF CHEM 8 (BAS METB)on Anion gap [Moles/Vol] 9.6 mmol/L Normal [facility] Comment on above: Performed By: #### B MP #### [facility] [address] [place] [address] Dr. Gricel Busch Calcium [Mass/Vol] 9.8 mg/dL Normal 8.5-10.1 [facility] Comment on above: Performed By: #### B MP #### [facility] [address] [place] [address] Dr. Gricel Busch Chloride [Moles/Vol] 102 mmol/L Normal 98-107 [facility] Comment on above: Performed By: #### B MP #### [facility] [address] [place] [address] Dr. Gricel Busch CO2 [Moles/Vol] 28.1 mmol/L Normal 21.0-32.0 [facility] Comment on above: Performed By: #### B MP #### [facility] [address] [place] [address] Dr. Gricel Busch Creatinine [Mass/Vol] 0.88 mg/dL Normal 0.70-1.30 [facility] Comment on above: Performed By: #### B MP #### [facility] [address] [place] [address] Dr. Gricel Busch EGFR-AF RWANDAN >60 Normal >=60 [facility] Comment on above: Performed By: #### B MP #### [facility] [address] [address] [address] Gricel Busch EGFR-NON AF RWANDAN >60 Normal >=60 [facility] Comment on above: Performed By: #### B MP #### [facility] [address] [address] [address] Gricel Busch Glucose [Mass/Vol] 101 mg/dL Normal 74-106 [facility] Comment on above: Performed By: #### B MP #### [facility] [address] [address] [address] Gricel Busch Potassium [Moles/Vol] 4.7 mmol/L Normal 3.5-5.1 [facility] Comment on above: Performed By: #### B MP #### [facility] [address] [address] [address] Gricel Busch Sodium [Moles/Vol] 135 mmol/L Critically low 136-145 [facility] Comment on above: Performed By: #### B MP #### [facility] [address] [address] [address] Gricel Busch Urea nitrogen [Mass/Vol] 12.0 mg/dL Normal 7.0-18.0 [facility] Comment on above: Performed By: #### B MP #### [facility] [address] [address] [address] Gricel Busch Urea nitrogen/Creatinin e [Mass ratio] 13.6 mg/mg Normal [facility] Comment on above: Performed By: #### B MP #### [facility] [address] [address] [address] Gricel Busch ECHOCARDIO M/2D COMPLETEon 0 12-21-2021 ECHOCARDIO M/2D COMPLETE Patient: JAMSHID NARANJOBRI Almaraz Exam Date: 12/21/2021 : 1935 Gender:M Ordering : DR JENNIFER MELVIN . Admission #: [id number] Family : Order #: [id number] CLICK HERE TO VIEW EXAM ECHOCARDIOGRAM REPORT [...] on 12/21/2021 at 19:28 Normal [facility] STRESS/REST MULTIon 12-20 ID STRESS/REST MULTI Patient: KINGSLEY NARANJO Exam Date: 12/20/2021 : 1935 Gender:M Ordering : DR JENNIFER MELVIN . Admission #: [id number] Family : Order #: [id number] CLICK HERE TO VIEW EXAM RADIOLOGY REPORT [...] Wheeler MD on 12/20/2021 at 14:18 Normal [facility] Vital Signs Date Time Vital Sign Value Performing Clinician Facility 12-25-2023 08:38-0400 Body temperature 97.88 [degF] REX FULLER [facility] 12-25-2023 08:38-0400 Diastolic blood pressure 82 mm[Hg] REX FULLER [facility] 12-25-2023 08:38-0400 Heart rate 58 /min REX FULLER [facility] 12-25-2023 08:38-0400 Respiratory rate 16 /min REX FULLER [facility] 12-25-2023 08:38-0400 Systolic blood pressure 150 mm[Hg] REX FULLER [facility] [place] Encounters Encounter Date Encounter Type Care Provider Facility Start: 02-15-2024 ambulatory Orestes Beckman MATEO [place] [place] Start: 02-07-2024 ambulatory Orestes MOBLEY Olgai ty:CD:[id number] Start: 01-15-2024 End: 01-15-2024 ambulatory Orestes MOBLEY Facility:[facility] Start: 01-15-2024 End: 01-15-2024 Patient encounter procedure Orestes MOBLEY [facility] Start: 12-31-2023 End: 12-31-2023 ambulatory Hamidatoya Mgea Facility:[facility] Start: 12-31-2023 End: 12-31-2023 Patient encounter procedure Hamida J Galea [facility] Start: 12-25-2023 End: 12-25-2023 ambulatory REX Renetta JONNY Facility:[facility] Start: 12-25-2023 End: 12-25-2023 Lab Drop off REX Renetta JONNY [facility] Start: 12-25-2023 End: 12-25-2023 ambulatory REX E JONNY Facility:[facility] Start: 12-25-2023 End: 12-25-2023 Patient encounter procedure REX E JONNY [facility] Start: 12-12-2023 ambulatory REX E JONNY Facili ty:[facility] Start: 11-29-2023 ambulatory REX JONNY Facility : [facility] Start: 08-08-2023 End: 08-08-2023 ambulatory [facility] Start: 07-25-2023 End: 07-25-2023 ambulatory Not Available Start: 07-12-2023 End: 07-12-2023 ambulatory Not Available Start: 02-06-2023 End: 02-06-2023 ambulatory ADÁN SHARIF [facility] Start: 08-11-2022 End: 08-11-2022 ambulatory VINH GUZMAN [facility] Start: 07-28-2022 End: 07-28-2022 ambulatory CK [...] Facility:[facility] Start: 12-28-2021 End: 12-29-2021 ambulatory ADÁN SHARIF Facility:[facility] Start: 12-26-2021 End: 12-27-[address] ADÁN [...] Immunizations Immunization Date Immunization Notes Care Provider [facility] 03-26-2023 influenza virus vaccine, unspecified formulation REX FULLER [facility] 09-16-2021 SARS-CoV-2 mRNA (wzezspbfqux-eyab-madfj se) vaccine REX JONNY [facility] Comment on above: Result Comment: 2023: [id number] 02-24-2021 SARS-CoV-2 (COVID-19 ) mRNA BNT-162b2 vax REX JONNY [facility] Comment on above: Result Comment: 2023: [id number] 02-18-2021 influenza virus vaccine, unspecified formulation REX JONNY [facility] 06-30-2020 SARS-CoV-2 (COVID-19 ) mRNA BNT-162b2 vax REX JONNY [facility] 06-07-2020 SARS-CoV-2 (COVID-19 ) mRNA BNT-162b2 vax REX JONNY [facility] 04-05-2020 influenza virus vaccine, unspecified formulation REX JONNY [facility] 03-07-2019 influenza virus vaccine, unspecified formulation REX JONNY [facility] [place] 04-13-2017 influenza virus vaccine, unspecified formulation REX JONNY [facility] 02-12-2017 influenza virus vaccine, unspecified formulation REX JONNY [facility] 11-13-2016 pneumococcal polysaccharide vaccine, 23 valent REX JONNY [facility] 02-12-2013 influenza virus vaccine, unspecified formulation REX FULLER [facility] 03-11-2003 pneumococcal polysaccharide vaccine, 23 valent REX FULLER [facility] NEGATED: Highlighted row has not occurred!02-21-2019 influenza virus vaccine, unspecified formulation REX FULLER [facility] [place] Comment on above: Result Comment: Will obtain from primary care physician Payers Date Payer Category Payer Medicare [id number] 1960 Private Health Insurance [id number] 1935 Unknown [id number] 2.16.8 [id number] 1935 Unknown [id number] 2.16.84 0.1.878765.3.579.2.593 1934 Unknown [id number] 2.16.84 0.1.078986.3.579.2.593 1934 Unknown [id number] 2.16.84 0.1.467331.3.579.2.593 1934 Unknown [id number] 2.16.84 0.1.667597.3.579.2.593 1934 Unknown [id number] 2.16.84 0.1.752432.3.579.2.593 1934 Unknown [id number] 2.16.84 0.1.723829.3.579.2.593 1934 Unknown [id number] 2.16.84 0.1.292909.3.579.2.593 1934 Unknown [id number] 2.16.84 0.1.775850.3.579.2.593 1934 Unknown [id number] 2.16.84 0.1.442540.3.579.2.593 1934 Unknown [id number] 2.16.84 0.1.585431.3.579.2.593 1934 Unknown [id number] 2.16.84 0.1.754986.3.579.2.1259 1934 Unknown [id number] 2.16.84 0.1.487974.3.579.2.1259 1934 Unknown [id number] 2.16.8 40.1.872233.3.579.2.727 1934 Unknown [id number] 2.16.8 40.1.016388.3.579.2.727 1934 Unknown [id number] 2.16.8 40.1.797422.3.579.2.727 1934 Unknown [id number] 2.16.8 40.1.043912.3.579.2.727 1934 Unknown [id number] 2.16.8 40.1.456004.3.579.2.727 1934 Unknown [id number] 2.16.8 40.1.215424.3.579.2.727 1934 Unknown [id number] 2.16.8 40.1.053446.3.579.2.727 Social History Date Type Detail Facility Start: 12-25-2023 Tobacco smoking status Never s moked tobacco (finding) [facility] Tobacco smoking status Never [facility] Sex Assigned At Male [facility] Functional Status Date Assessment Result Facility 01-15-2024 Functional Status N/A [facility] 12-25-2023 Functional Status N/A [facility] Clinical Notes 12-30-2021 to 01-15-2024 Note Date & Type Note Facility 01-15-2024 Evaluation + Plan note Extrac ariadna from: Title:Urology Progress Note Author:Andrey MOBLEY MD Date:01/15/24 Impression and Plan Impression: #1. He has bladder tumors. These need to get resected. Plan: #1. He is getting scheduled for cystoscopy and TURBT under anesthesia. Future Appointments Appointment Date:02/15/2024 08:45:00 AM Scheduled Provider:Orestes MOBLEY MD Location:[facility] Appointment Type:URO Office Visit Future Scheduled Tests Laboratory* Urine Culture 12/31/23 [facility] 09-03-2024 Hospital Discharge instructions Patient Education 01/15/2024 11:12:29 [facility] - Cystoscopy Discharge Instructions (CUSTOM) Cystoscopy Voiding after the procedure: there may be some pain, burning, urgency, frequency and blood tinged urine following the procedure. These symptoms usually resolve within 2-5 days. Drink the amount of fluid it takes to keep the urine pink to yellow or clear in color. Drinking enough water and fluids will help to ease any discomfort after your procedure. If you are having problems that seem out of the ordinary, please call. If unable to contact your physician and you feel it is an emergency, go to the nearest emergency room or call 911 Diet you may resume your normal diet. Activity you may resume your normal activities Call if you have a fever over 100 degrees. Follow Up Care 12/31/2023 09:27:58 With:Orestes MOBLEY Address: [address] [place], [place] [address] Business (1) When: Unknown Comments:Office will call to schedule follow up [facility] 09-03-2024 NoteProgress Note-Physician Patient: KINGSLEY NARANJO Age: 88 years Sex: Male : 1935 Associated Diagnoses: None Author: Orestes MOBLEY MD Subjective X this gentleman has gross hematuria and a bladder mass by ultrasound. 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 Review of Systems ROS reviewed as documented in chart Health Status Allergies: Allergic Reactions (Selected) No Known Medication Allergies Current medications: Home Medications (13) Active amLODIPine 2.5 mg Tab 2.5 mg = 1 tab(s), Oral, Daily aspirin 81 mg oral tablet , Oral, Daily carvedilol 3.125 mg Tab 6.25 mg = 2 tab(s), Oral, Daily cholecalciferol 2000 intl units oral capsule 2,000 International_Unit = 1 cap(s), Oral, Daily Cipro 500 mg Tab 500 mg = 1 tab(s), Oral, Daily diclofenac sodium 50 mg Oral EC Tab 50 mg = 1 tab(s), Oral, TID isosorbide mononitrate 30 mg ER Tab 1/2 tab, Oral, qAM levothyroxine 137 mcg (0.137 mg) Tab 1/2 tab(s), Oral, Daily Metamucil , Oral Nitro 0.4 mg Tab 1 tab(s), PRN, SubLingual, q5min rosuvastatin 20 mg Tab 20 mg = 1 tab(s), Oral, Daily tamsulosin 0.4 mg Cap 0.4 mg = 1 cap(s), Oral, Daily Vitamin B12 See Instructions Problem list: All Problems Hypertension / SNOMED CT 9180286048 / Confirmed 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 Right inguinal hernia / SNOMED CT 696180118 / Confirmed Hypothyroidism / SNOMED CT 68506246 / Confirmed Arteriosclerotic heart disease (ASHD) / SNOMED CT 84326702 / Confirmed High cholesterol / SNOMED CT 45170870 / Confirmed Right groin pain / SNOMED CT 7295357289 / Confirmed 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 Ischemic heart disease (3171404723): Resolved. Family History: Bilateral primary ovarian cancer Mother Procedure history: Colonoscopy (956183811) on 06/30/2009 at 73 Years. Cardiac catheterization (88865542). Coronary angioplasty (12305084). Repair of inguinal hernia (94702113). Comments: 01/15/2019 15:25 EDT - Rogelio Jha Social History Social & Psychosocial Habits Alcohol 12/25/2023 Risk Assessment: Denies Alcohol Use Substance Abuse 12/25/2023 Risk Assessment: Denies Substance Abuse Tobacco 12/25/2023 Tobacco Use: Never (less than 100 in l Smokeless tobacco use: Never . Objective Afebrile vital signs are stable. He is in no acute distress. Abdomen is soft and nontender. No masses are palpable. External genitalia are unremarkable. Impression and Plan Impression: #1. He has bladder tumors. These need to get resected. Plan: #1. He is getting scheduled for cystoscopy and TURBT under anesthesia[facility] Comment: Electronically Signed By: MATEO DICK, Orestes Campos.[email or web address]\Date and Time Signed: 01/15/24 11:18 EDT 01-15-2024 NotePatient Education Custom Cystoscopy ? Voiding after the procedure: there may be some pain, burning, urgency, frequency and blood tingedurine following the procedure. These symptoms usually resolve within 2-5 days. Drink the amount of fluid it takes to keep the urine pink to yellow or clear in color. Drinking enough water and fluids will help to ease any discomfort after your procedure. ? If you are having problems that seem out of the ordinary, please call. ? If unable to contact your physician and you feel it is an emergency, go to the nearest emergency room or call 911 ? Diet ? you may resume your normal diet. ? Activity ? you may resume your normal activities ? Call if you have a fever over 100 degrees.[facility] 12-25-2023 Evaluation + Plan note Diagnostic Tests Pending * Creatinine 12/25/23 [facility] 08-13-2024 Evaluation + Plan note Diagnostic Tests Pending * Urine Cytology ([facility]) 12/25/23 [facility] 08-13-2024 Hospital Discharge instructions Patient Education 12/25/2023 09:15:19 [...] including vitamins, herbs, eye drops, creams, and pmow-ydl-bwxxsfg medicines. Any problems you or family members [...] provider tells you to take them. Taking jewu-ztp-cifoprt medicines, vitamins, herbs, and supplements. Tests You [...] Follow these instructions at home: Medicines Take vwte-hqt-nnrljou and prescription medicines only as told by your health care provider. If you were prescribed an antibiotic medicine, take it as told by your health care provider. Do notstop taking the antibiotic even if you start [...] blood in your urine increases, call your healthcare provider. Follow instructions from your health care provider about eating or drinking restrictions. If a tissue sample was removed for testing (biopsy) during your procedure, it is up to you to get your test results. Ask your health care provider, or the department that is doing the test, when yourresults will be ready. Drink enough fluid to [...] blood in your urine increases, call your healthcare provider. If you were prescribed an antibiotic medicine, take it as told by your health care provider. Do notstop taking the antibiotic even if you start to feel better. This information is not intended to replace advice given to you by your health care provider. Make sure you discuss any questions you have with your health care provider. Document Revised: 01/11/2022 Document Reviewed: 12/10/2020 [employer] Patient Education 2022 [employer]. 12/25/2023 09:15:16 Hematuria, Adult Hematuria, Adult Hematuria is blood in the urine. Blood may be visible in the urine, or it may be identified with a test. This condition can be caused by infections of the bladder, urethra, kidney, or prostate. Otherpossible causes include: Kidney stones. Cancer of the [...] blood in your urine, even if it ispainless or the blood stops without treatment. Blood in the urine, when it happens and then stops and then happens again, can be a symptom of a very serious condition, including cancer. There is no pain in the initial stages of many urinary cancers. Follow these instructions at home: Medicines Take ezdz-nvn-setporh and prescription medicines only as told by your health care provider. If you were prescribed an antibiotic medicine, take it as told by your health care provider. Do notstop taking the antibiotic even if you start to feel better. Eating and drinking Drink enough fluid to keep your urine pale yellow. It is recommended that you drink 3 4 quarts (2.83.8 L) a day. If you have been diagnosed with an infection, drinking cranberry juice in addition tolarge amounts of water is recommended. Avoid caffeine, [...] about any blood in your urine, even ifit is painless or the blood stops without treatment. Take cjmi-zcz-eyvmals and prescription medicines only as told by your health care provider. Drink enough fluid to keep your urine pale yellow. This information is not intended to replace advice given to you by your health care provider. Make sure you discuss any questions you have with your health care provider. Document Revised: 12/29/2020 Document Reviewed: 12/29/2020 [employer] Patient Education 2022 [employer]. Follow Up Care 12/06/2023 14:27:33 With:JONNY BATEMAN, REX Jackson, URL Address: [address] [place] [id number] When: Unknown [facility] 08-13-2024 NotePatient Education Urology Cystoscopy Cystoscopy is a procedure [...] including vitamins, herbs, eye drops, creams, and bttb-piy-znctpht medicines. ? Any problems you or family [...] tells you to take them. ? Taking nesk-zpe-kbzuqaq medicines, vitamins, herbs, and supplements. Tests You [...] taken to help prevent infection. These steps mayinclude: ? Washing skin with a germ-killing soap. [...] these instructions at home: Medicines ? Take uogs-lmz-kzpyhzd and prescription medicines only as told by [...] procedure, it is up to you to getyour test results. Ask your health care provider, (more content not included)...[facility] Chief Complaint: Patient here [...] FINAL IMPRESSIONS: 1. 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 Sharif in the [place] office in the next 2-4 weeks. 7. Follow up with Dr. Melvin as scheduled. PROCEDURES: Ultrasound-guided access to the right common femoral artery, limited femoral angiography, bilateral selective coronary angiography, angiography of internal mammary artery graft, angiography of the saphenous vein graft, placement of a 6-Haitian MynxGrip closure device. Echocardiogram 12/2021: Global left ventricular systolic function is normal; EF 55 to 60%. Mild biatrial dilatation. Mild to moderate tricuspid regurgitati (more content not included)...[facility]09-26-2023 [facility] Chief Complaint: Patient here for 6 mo follow up CAD, hypertension, and hyperlipidemia. [facility], and his PCP at the [facility] switched his statin to Crestor. He and [...] FINAL IMPRESSIONS: 1. 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 Sharif in the [place] office in the next 2-4 weeks. 7. Follow up with Dr. Melvin as scheduled. PROCEDURES: Ultrasound-guided access to the right common femoral artery, limited femoral angiography, bilateral selective coronary angiography, angiography of internal mammary artery graft, angiography of the saphenous vein graft, placement of a 6-Haitian MynxGrip closure device. Labs 09/18/2022: Total cholesterol 119, LDL 63, (more content not included)...[facility]03-31-2023 [facility] 08-11-2022 NoteLipid abnormalities are Currently well controlled continue simvastatin 40 mg dailyUnWexner Medical Center03-31-2023 NoteHypertension is well controlled 114/70 Continue amlodipine, coreg and imdur.[facility] 08-11-2022 NoteUTP CARDIOLOGY PROGRESS NOTE HPI: Kingsley Naranjo is a 86 [...] 12 months Assessment/Plan: Coronary artery disease involving [place] coronary artery of [place] heart without angina pectoris Goal-directed medical therapy [...] coronary artery bypass graft Stable RTC 6 monthsUnWexner Medical Center03-31-2023 NoteReview of Systems All other systems reviewed and are negative.[facility] 08-11-2022 NoteGoal-directed medical therapy including aspirin, carvedilol, Imdur, simvastatin continue risk factor modifications- heart healthy diet, regular exercise as tolerated and continue all medications. Discussed with patient regarding uncontrolled diabetes and inflammatory processes, and concerns regarding his known coronary artery disease and recommendation to follow-up with endocrinology- Voiced agreement and understandingUnWexner Medical Center01-10-2023 NotePROCEDURE: XR LSPINE MIN 4 VIEWS HISTORY: Collapse [...] Electronically authenticated by: MACY MICHAEL Date: 2022-05-23 08:14[facility]01-10-2023 NotePROCEDURE: XR HIP LT 2 3V W PELVIS [...] Electronically authenticated by: MACY MICHAEL Date: 2022-05-23 08:09[facility]08-19-2022 NoteMR#: [id number] 2 [facility] Pt. Name: Kingsley Naranjo Shahrzad Admitted: 12/28/2021 Discharged: 12/29/2021 Date of : [...] as bypass graft angiography. Coronary angiogram showed [place] arteries left main is calcified but patent. [...] Jensen MD Date Trans: 12/30/2021 09:11 A/jeanne TORREZ_ALBERTO:[id number] cc: Jennifer Melvin M.D. [address], [place] [address]AtuUniversity Hospitals Portage Medical CenterEvaluation + Plan note Future Appointments Appointment Date:01/08/2024 08:30:00 AM Scheduled Provider: Location:[facility] Appointment Type:Urology CALL PAT FT Appointment Date:01/15/2024 10:45:00 AM Scheduled Provider: Location:[facility] Appointment Type:Urology FT Future Scheduled Tests Laboratory* Urine Culture 12/31/23 [facility] Hospital course Narrative No data available for this section [facility] Discharge instructions No data available for this section [facility] Progress note No data available for this section [facility] Summary Purpose Family History No Family History Records FoundNo Family History Records FoundNo Family History Records FoundNo Family History Records Found No data available for this section No data available for this section No Family History Records Found No data available for this section No data available for this section No Family History Records Found Advance Directives No [...] and content) DATE CREATED AUTHOR 01/08/2022 [facility] DATE CREATED AUTHOR AUTHOR'S ORGANIZ ATION 08/06/2022 [facility] DATE CREATED AUTHOR AUTHOR'S ORGANIZ ATION 07/26/2023 [facility] DATE CREATED AUTHOR AUTHOR'S ORGANIZ ATION 08/09/2023 [facility] DATE CREATED AUTHOR AUTHOR'S ORGANIZ ATION 12/31/2023 [facility] DATE CREATED AUTHOR AUTHOR'S ORGANIZ ATION 01/17/2024 [facility] Patient Care team informatio n (unrecognized section and content) Personnel Name: Jennifer Melvin MD Address: Address: [address] [place] [address] Personnel Name: Jennifer Melvin MD Address: Address: [address] [place] [address] Personnel Name: Jennifer Melvin MD Address: Address: [address] [place] [address] Personnel Name: Jennifer Melvin MD Address: Address: [address] [place] [address] FOR RECORDS PERTAINING TO PATIENTS WHO ARE [...] BE BASED ON THE PRIMARY CLINICAL RECORDS. [facility] [facility]. provides no warranty or guarantee of the accuracy or completeness of information in this document.
--- NOTE | 2024-01-24 08:57 | P.GSHP_ITS ---
History of Present Illness History of Present Illness Chief complaint: BLADDER TUMOR Narrative: Patient presents for preadmission testing accompanied by his son. The patient states he had hematuria and was evaluated by his primary care provider and completed 2 courses of antibiotics for UTI, but was still experiencing some dysuria and hematuria. The patient had a cystoscopy and is now scheduled for a TURBT. The patient states overall he is not experiencing any bothersome urinary complaints and his hematuria has subsided at this time. Review of Systems ROS Narrative REVIEW OF SYSTEMS: Negative except as stated in HPI, ten or more systems reviewed. Constitutional: No fever, chills, weakness ENT: No sore throat or epistaxis Cardiovascular: No edema, chest pain, palpitations, or activity intolerance Respiratory: No shortness of breath, cough, or wheezing Musculoskeletal: No joint pain or swelling Gastrointestinal: No abdominal pain, constipation, diarrhea, or vomiting Neurological: No numbness, tingling, weakness, or headache Psychiatric: No mood changes [facility] Medical History (Updated 01/24/24 @ 08:56 by Monika Ha NP) Right bundle branch block ?I45.10 - Unspecified right bundle-branch block (ICD-10) BPH with obstruction/lower urinary tract symptoms ?N40.1 - Benign prostatic hyperplasia with lower urinary tract symptoms (ICD- 10) ?N13.8 - Other obstructive and reflux uropathy (ICD-10) BPH with elevated PSA ?N40.0 - Benign prostatic hyperplasia without lower urinary tract symptoms (ICD-10) ?R97.20 - Elevated prostate specific antigen [PSA] (ICD-10) Hematuria ?R31.9 - Hematuria, unspecified (ICD-10) Urinary tract infection ?N39.0 - Urinary tract infection, site not specified (ICD-10) Bladder tumor ?D49.4 - Neoplasm of unspecified behavior of bladder (ICD-10) Hearing loss ?H91.90 - Unspecified hearing loss, unspecified ear (ICD-10) Back pain ?M54.9 - Dorsalgia, unspecified (ICD-10) Arthritis ?M19.90 - Unspecified osteoarthritis, unspecified site (ICD-10) High cholesterol ?E78.00 - Pure hypercholesterolemia, unspecified (ICD-10) Hypertension ?I10 - Essential (primary) hypertension (ICD-10) Coronary artery disease ?I25.10 - Atherosclerotic heart disease of [place] coronary artery without angina pectoris (ICD-10) Hypothyroidism ?E03.9 - Hypothyroidism, unspecified (ICD-10) Surgical History (Updated 01/24/24 @ 08:36 by Monika Ha NP) Hx of prostate biopsy ?Z98.890 - Other specified postprocedural states (ICD-10) History of heart artery stent ?Z95.5 - Presence of coronary angioplasty implant and graft (ICD-10) 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 - Presence of aortocoronary bypass graft (ICD-10) History of hernia repair ?Z98.890 - Other specified postprocedural states (ICD-10) ?Z87.19 - Personal history of other diseases of the digestive system (ICD-10) History of colonoscopy ?Z98.890 - Other specified postprocedural states (ICD-10) Family History (Updated 01/24/24 @ 08:36 by Monika Ha NP) Other Family history of heart disease Family history of ovarian cancer Social History (Updated 01/24/24 @ 08:26 by Monika Ha NP) Within the past year, how often did you have a drink containing alcohol: never Score interpretation: A score less than 4 is consistent with normal alcohol consumption. Smoking status: Never smoker Non-prescribed substance use: denies use Highest level of school completed/degree received: high school graduate Meds Home Medications and Allergies Home Medications ?Medication ?Instructions ?Recorded ?Confirmed ?Type amlodipine 2.5 mg tablet 2.5 mg PO DAILY 01/24/24 01/24/24 History aspirin 81 mg tablet,delayed 81 mg PO DAILY 01/24/24 01/24/24 History release (Adult Aspirin Regimen) carvedilol 3.125 mg tablet 3.125 mg PO BID 01/24/24 01/24/24 History diclofenac sodium 50 mg 50 mg PO Q12H 01/24/24 01/24/24 History tablet,delayed release isosorbide mononitrate 30 mg 15 mg PO DAILY 01/24/24 01/24/24 History tablet,extended release 24 hr levothyroxine 137 mcg capsule 68.5 mcg PO DAILY 01/24/24 01/24/24 History rosuvastatin 20 mg sprinkle capsule 20 mg PO DAILY 01/24/24 01/24/24 History tamsulosin 0.4 mg capsule (Flomax) 0.4 mg PO DAILY 01/24/24 01/24/24 History Allergies Allergy/AdvReac Type Severity Reaction Status Date / Time No Known Drug Allergies Allergy Verified 01/24/24 08:19 Exam Narrative Exam Narrative: Constitutional: Awake, alert, comfortable, well-appearing, nontoxic, interactive, vital signs as charted Head: Normocephalic, atraumatic Neck: Supple, normal appearance, normal range of motion, no meningeal signs, no lymphadenopathy Respiratory: No respiratory distress, breath sounds clear Cardiovascular: Regular rate and rhythm, strong and regular heart tones Abdomen: Nontender, normal bowel sounds, soft, no CVA tenderness Musculoskeletal: Normal gait, no swelling or edema Skin: No rashes or induration, no lesions, only visible skin inspected Neuro: No neurological deficits, normal sensation Psychiatric: Oriented ?3, normal affect Assessment and Plan Assessment and Plan (1) Bladder tumor: Plan Cystoscopy, TURBT scheduled with Dr. Mobley February 07, 2024.
[2024-01-24 09:15] LABS: BUN Creatinine Ratio 21.4; Calcium 9.7 mg/dL (8.5-10.1); Chloride 105 mmol/L (98-107); Estimated GFR (African America >60 (>=60); Estimated GFR (Non-African Ame >60 (>=60); Glucose 86 mg/dL (74-106); Potassium 4.6 mmol/L (3.5-5.1); Sodium 139 mmol/L (136-145)
[2024-01-24 09:19] LABS: Basophils Percent Auto 0.9 % (0.2-2.0); Eosinophils Absolute Auto 0.2 10^3/uL (0.0-0.7); Eosinophils Percent Auto 3.5 % (0.9-7.0); Hematocrit 39.6 % (42.0-54.0); Hemoglobin 13.3 g/dL (14.0-18.0); Immature Granulocytes Abs Auto 0.01 10^3/uL (0.00-0.03); Immature Granulocytes Pct Auto 0.2 % (0.0-0.5); Lymphocytes Absolute Auto 1.1 10^3/uL (1.2-3.8); Lymphocytes Percent Auto 23.2 % (20.5-60.0); Mean Corpuscular HGB Conc 33.6 g/dL (29.9-35.2); Mean Corpuscular Hemoglobin 32.6 pg (25.9-34.0); Mean Corpuscular Volume 97.1 fL (80.0-94.0); Mean Platelet Volume 9.9 fL (9.5-13.5); Monocytes Absolute Auto 0.6 10^3/uL (0.3-0.8); Monocytes Percent Auto 13.8 % (1.7-12.0); Neutrophils Absolute Auto 2.7 10^3/uL (1.4-6.5); Neutrophils Percent Auto 58.4 % (43.0-75.0); Platelet Count 146 10^3/uL (150-450); Red Blood Count 4.08 10^6/uL (4.70-6.10); Red Cell Distribution Width 13.2 % (11.0-15.0); White Blood Count 4.6 10^3/uL (4.0-11.0)
[2024-01-24 09:21] LABS: Anion Gap 10.5; Carbon Dioxide 28.1 mmol/L (21.0-32.0)
[2024-01-24 09:52] LABS: INR 1.05; Partial Thromboplastin Time 28.1 sec (22.3-36.2); Prothrombin Time 11.1 sec (9.0-11.6)
== END 2024-01-24 07:56 | disposition home or self-care (01) ==
LOC: PST 07:56
PROVIDERS: PCP Family Medicine; Visit Provider Urology
DX: Z01.810 Encounter for preprocedural cardiovascular examination (principal); Z01.812 Encounter for preprocedural laboratory examination; Z01.818 Encounter for other preprocedural examination; R31.9 Hematuria, unspecified
CPT/HCPCS: 71046; 80048; 85025; 85610; 85730; 93005; G0463

== ENCOUNTER 2024-02-07 12:15 | Day surgery (SDC) | payer MEDICARE, OTHER, SELFPAY ==
[2024-01-24 08:55] VITALS: BP 122/62; PULSE 58; TEMP 36.1; O2SAT 97; BMI 24.8
[2024-02-07] VITALS (11 sets, daily range): BP systolic 140–189; BP diastolic 79–113; PULSE 57–82; TEMP 35.7–36.6; O2SAT 95–98; BMI 23.7
[2024-02-07] MEDS: LACTATED RINGER'S SOLUTION 1,000 ML 50 ML IV (12:51)
[2024-02-07] MEDS: CEFAZOLIN SODIUM 1 GM/50 ML D5W PREMIX IV (14:45)
--- NOTE | 2024-02-07 15:53 | PM.URSON ---
Urology Surgery Operative Note Operative Note Procedure Date: 02/07/24 Time Out Performed: yes Pre-op Diagnosis: Bladder tumor Post-op Diagnosis: same as pre-op Procedures performed: 1. Cystoscopy. 2. 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 Multiple small satellite lesions and adjacent lesions on the floor Specimens: Bladder tumors Drains: 20 [place] Howe catheter to gravity Indications for Procedures: This gentleman had gross hematuria. His workup revealed a sizable right lateral wall bladder tumor with necrosis. He now presents for TURBT. He has signed an informed consent after risks were explained. Detailed description of Procedure: The patient was brought to the operating room and placed on the operating room table in the supine position. SCDs were placed on the lower extremities and turned on and functioning during the entire case. Timeout was done by all parties in the room. We all agreed upon the patient's identification and the planned procedures for this patient. Genn. anesthesia was then administered. The patient was then repositioned into the modified dorsal lithotomy position. All pressure points were satisfactorily padded. Genitalia were sterilely prepped and draped in usual fashion. I started by passing a 26 [place] Olympus resectoscope with a standard bipolar loop electrode per urethra and into the bladder. On the sizable tumor on the right lateral wall was identified. There was necrosis over the top. The ureteral orifices were identified and away from the tumor. I uniformly began resecting this tumor. When I got it down to the bladder level I then resected deeply. I was able to get all of the tumor out with deep bites and not have any bladder perforation. The resection bed was coagulated. I then coagulated several small satellite superficial appearing lesions on the floor. There were no other papillary tumors throughout the bladder. The Ilich was used to get all the bladder chips out. These were sent for permanent sections. Upon completion, there was no active bleeding. There were no chips remaining in the bladder. The scope was removed. I then passed a 20 [place] two-way Howe catheter in the bladder. 10 cc of fluid was placed in the balloon. It was irrigated to a very light blood tinged color. The anesthetic was then reversed. He was then transferred to a gurney bed and wheeled to PACU in stable condition.
== END 2024-02-07 17:10 | disposition home or self-care (01) ==
PROVIDERS: PCP Family Medicine; Visit Provider Urology
PROC: (CPT 52235; principal; 2024-02-07 13:35)
DX: C67.2 Malignant neoplasm of lateral wall of bladder (principal); E78.5 Hyperlipidemia, unspecified; I10 Essential (primary) hypertension; H91.90 Unspecified hearing loss, unspecified ear; R31.0 Gross hematuria; I25.10 Atherosclerotic heart disease of native coronary artery without angina pectoris; E03.9 Hypothyroidism, unspecified; Z95.5 Presence of coronary angioplasty implant and graft; Z95.1 Presence of aortocoronary bypass graft; N40.0 Benign prostatic hyperplasia without lower urinary tract symptoms
CPT/HCPCS: 52235; 36415; 51702; 88307; J0690; J1100; J2405; J2704; J3010

== ENCOUNTER 2024-02-15 10:45 | Outpatient (OUT) | payer MEDICARE, OTHER, SELFPAY ==
--- OUTSIDE RECORDS SUMMARY | 2024-02-15 11:02 | XMS_ITS | CCD ---
Author Organization [facility] CliniSyhi Care Team Providers Care Electrical Foreman Name Role Phone ELTAHAWY, EHAB A Attending Unavailable ELTAHAWSachi, EHAB A Admitting Unavailable DOUGYJONASJENNIFER Referring Unavailable DOUGYJENNIFER Primary Care Unavailable HOY [...] NIXON Attending Unavailable CK NIXON Admitting Unavailable MEERA ., DR RODRIGUEZ Consulting Unavailable MEERA ., DR RODRIGUEZ Primary Care Unavailable MEERA Bagley, DR RODRIGUEZ Attending Unavailable MEERA ., DR RODRIGUEZ Admitting Unavailable Gay Wheeler Consulting Unavailable TOYA, DR VALLEJO Consulting Unavailable Jennifer Melvin Primary Care Physician RXE FULLER Attending Unavailable Jennifer Melvin Referring Unavailable JONNY, REX Jackson Attending Unavailable Jennifer Melvin Referring Unavailable JONNY, REX Jackson Admitting Unavailable JONNY, REX Jackson Attending Unavailable ELTAHAWY, ADÁN Attending Unavailable ELTAHAWY, ADÁN Attending Unavailable MEGAN, VINH Attending Unavailable Mobley, Orestes Attending Unavailable Mobley, Orestes Admitting Unavailable MOBLEY, Orestes Beckman Admitting Unavailable MOBLEY, Orestes Beckman Attending Unavailable MOBLEY, Orestes R Referring Unavailable MOBLEY, Orestes R Attending Unavailable MOBLEY, Oresets Beckman Attending Unavailable Galea, Hamida Mayen Attending Unavailable Allergies Allergy Classification Reported Allergen(s) Allergy Type Date of Onset Reaction(s) Facility (2 sources) No Known Medication Allergies; Translations: [No Known Medication Allergies] Propensity to adverse reactions (disorder) [facility] Repository Medications Current Medications Medication Drug Class(es) Dates Sig (Normalized) Sig (Original) amLODIPine 2.5 mg oral tablet (4 sources) Dihydropyridine Calcium Channel Allyson Start: 12-25-2023 take 1 tablet by mouth [...] 3.125 mg oral tablet (4 sources) alpha-Adrenergic Allyson, beta-Adrenergic Allyson Start: 12-25-2023 take 2 tablets by mouth [...] 0.4 mg oral capsule (4 sources) alpha-Adrenergic Allyson Start: 12-25-2023 take 1 capsule by mouth [...] procedure, # 2 tab(s), Refills(s) 0, Pharmacy: [facility]/pharmacy #[id number], 178, cm, 12/25/23 8:48:00 EDT, Height/Length [...] disease (20 sources) 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; Translations: [Angina pectoris, unspecified] Onset: 12-20-2021 Chronic Coronary atherosclerosis and other heart disease (2 sources) Presence of aortocoronary bypass graft; Translations: [Presence of aortocoronary bypass graft] Onset: 08-11-2022 Episodic Disorders of lipid metabolism (15 sources) Pure hypercholesterolemia, unspecified; Translations: [Hypercholesterolemia ] Onset: 12-21-2021 Chronic Essential hypertension (6 sources) Hypertensive disorder; Translations: [Essential (primary) hypertension] Onset: 08-11-2022 01-15-2019 Chronic Genitourinary symptoms and ill-defined conditions (11 [...] Classification Problem Date Documented Da te Episodic/Chronic Other aftercare (1 source) Other half-way (current) drug therapy; Translations: [OTH [facility] CURRENT DRUG THERAPY] Onset: 12-27-2021 Episodic Results Test Name Value Interpretation Reference Range Facility [facility] 02-07-2024 L Specimen: [id number] Received: 02/08/24 Status: GIL Luciano Num: [id number] Spec Type: Surgical Subm Dr: Orestes oMbley MD Tissues: A Urinary Bladder - biopsy (BLADDER TUMOR) Procedures: HE/2, Gross/Micro L4 Age/ Patient Sex Location Account Attending Physician Kingsley Naranjo 88/M LABELL [id number] Orestes Mobley MD SPEC NUM: [id number] RECD: 02/08/24 STATUS: GIL LUCIANO NUM: [id number] TANNER: 02/07/[address]: Orestes Mobley MD ENTERED: 02/08/24 [facility] DR: Isaiah Cleaning SPEC TYPE: Surgical DEPT: COLIN MENDOZA ENTERED BY: [id number] RECV BY: [id number] ORDERED: HE/2, Gross/Micro L4 ORDERED: HE/2, Gross/Micro L4 Pathological Diagnosis Urinary bladder tumor, 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 The overall high-grade tumor portion are less than 20%, including rare small foci of tumor necrosis, and occasional foci of tumor hypercellularity without obvious stromal invasion Clinical Information Bladder tumor, hematuria Gross Description The specimen is received in formalin with the patient's name and bladder tumor and consists of multiple lowe fragments of soft tissue measuring 2.5 x 2.5 x 0.4 cm in aggregate, and weighing 1.9 g. The specimen is entirely submitted in cassette A1. ---- Specimen: [id number] Received: 02/08/24 Status: GIL Luciano Num: [id number] Spec Type: Surgical Subm Dr: Orestes Mobley MD Tissues: A Urinary Bladder - biopsy (BLADDER TUMOR) Procedures: HE/2, Gross/Micro L4 ---- Patient: Kingsley Naranjo [id number] (Continued) ---- Specimen: [id number] Received: 02/08/24 (Continued) Signed (signature on file) Philomena Busch MD 02/11/24 1728 ---- Specimen: [id number] Received: 02/08/24 Status: GIL Luciano Num: [id number] Spec Type: Surgical Subm Dr: Orestes Mobley MD Tissues: A Urinary Bladder - biopsy (BLADDER TUMOR) Procedures: Abiola MCKEON/Mona L4 ---- Patient: Kingsley Naranjo [id number] (Continued) ---- Specimen: [id number] Received: 02/08/24 (Continued) Microscopic Description Microscopic examinations are performed supporting the above interpretation CPT Codes 06483 ---- ---- Specimen: [id number] Received: 02/08/24 Status: GIL Luciano Num: [id number] Spec Type: Surgical Subm Dr: Orestes Mobley MD Tissues: A Urinary Bladder - biopsy (BLADDER TUMOR) Procedures: HE/2, Gross/Micro L4 ---- Patient: Kingsley Naranjo [id number] (Continued) ---- Signed (signature on file) Mor-Duncan Busch MD 02/11/24 1728 Normal [facility] Office Visiton 01-28-2024 Follow-up visit [id number] Fernie Naranjo 1935 [facility] Provider Department [place] 01/28/2024 Niurka-VINH GUZMAN C[facility] No family history on file Level of Service:18602 [place] OFFICE/OUTPATIENT ESTABLISHED MOD MDM 30 MIN Normal [facility] Main OR Intraoperative Recor don 01-15-2024 Main OR Intraoperative Record Main OR Intraoperative Record IntraOp Document Type FTURO Summary Primary Physician: Orestes MOBLEY MD Finalized Date/Time: 01/15/24 11:19:04 Pt. Name: KINGSLEY NARANJO.O.B./Sex: 1935 Male Med Rec #: [id number] Physician: Orestes MOBLEY MD Financial #: [id number] Pt. Type: O Room/Bed: / Admit/Disch: 01/15/24 [...] Deborah Rodríguez Role Performed Surgeon - Primary Roll Forming Machine Operator - Primary Scrub - Primary Time In 01/15/24 11:04:00 01/15/24 11:04:00 01/15/24 11:04:00 Time Out 01/15/24 11:16:00 01/15/24 11:16:00 01/15/24 11:16:00 Procedure CYSTOSCOPY LOCAL(.) CYSTOSCOPY LOCAL(.) CYSTOSCOPY LOCAL(.) Comments Last Modified By: Yasmin MARQUIS, Luanne Hoffman RN, Luanne Peoples RN 01/15/24 Shagufta Guardado 01/15/24 Shagufta Guardado 01/15/24 11:11:07 11:11:07 11:11:07 Entry 4 Case Attendee MODESTO DICK, MIKAYLA Role Performed Staff - Other Time In 01/15/24 11:04:00 Time Out 01/15/24 11:16:00 Procedure CYSTOSCOPY LOCAL(.) Comments OBSERVING Last Modified By: Luanne Hoffman RN 01/15/24 11:11:07 Surgical Procedures FTURO Entry 1 Procedure Description Procedure CYSTOSCOPY LOCAL Modifiers . Surgeon Description CYSTOSCOPY LOCAL Primary Procedure Yes Primary Surgeon Orestes MOBLEY MD 01/15/24 11:07:00 Stop 01/15/24 11:11:00 Anesthesia Type [...] Position Verified Availability Equipment, Medication Time Out Orestes MOBLEY MD, Verified (If Participants Luanne Hoffman RN Applicable) Jw Tyler Laura C, NKANSAH-AMANKRA MD, [...] Signed By: Luanne Hoffman RN 01/15/24 11:19 Normal [facility] Main OR Preoperative Recordo n 01-15-2024 Main OR Preoperative Record Main OR Preoperative Record Holding Area Document Type FTURO Summary Primary Physician: Orestes MOBLEY MD Finalized Date/Time: 01/15/24 10:31:41 Pt. Name: KINGSLEY NARANJO/Sex: 1935 Male Med Rec #: [id number] Physician: Orestes MOBLEY MD Financial #: [id number] Pt. Type: O Room/Bed: / Admit/Disch: 01/15/24 [...] Complaints of Pain: No Skin Integrity Intact, [place], Warm, & Dry Vitals - EU Blood Pressure 126/73 Pulse 80 bpm Respirations 18 br/min SPO2 Additional None Specimens Collected Last Modified By: Mari Estrella LPN 01/15/24 10:31:36 Finalized By: Mari Estrella LPN Document Signatures Signed By: Mari Estrella LPN 01/15/24 10:31 Normal [facility] Operative Reporton Operative Report Operative Report [...] for cystoscopy and TURBT under anesthesia.. Normal [facility] Comment on above: Result Comment: Elec tronically Signed By: MATEO DICK, Orestes Campos.sammy\Date and Time Signed: 01/15/24 11:16 EDT Urine Cytology ([facility])on 12-30-2023 Microscopic exam Cytology (U) [Interp] Diagnosis Info Invalid Interpretation Code [facility] Comment on above: Result Comment: A:Ur [...] on: 12/30/2023 11:24:24 Performed By: #### 1 [id number] #### [facility] Laboratory [address] [place] [address] Ambulatory Visit Summaryon 12-25-2023 Ambulatory Visit Summary Ambulatory Visit Summary [...] REX FULLER PA-C, URL When: Where: [address] [place] [address] [phone] Medications What How Much When Instructions Unchanged [...] ? Un (more content not included)... Normal [facility] Ambulatory Visit Summary Ambulatory Visit Summary SIDDHARTH NARANJONILE Markham :1935 Visit Date:12/25/2023 Ambulatory Visit Instructions Your Diagnosis Gross hematuria Bladder mass Kidney stone BPH with obstruction/lower urinary tract symptoms Elevated PSA Tests Performed CT Urogram -- Results Pending -- Please visit your patient portal for your results or contact your primary care physician. Your Care Team Attending Physician - JONNY BATEMNA, REX Jackson Primary Care Physician - Jennifer Melvin MD [...] REX FULLER PA-C, URL When: Where[facility] [address] [place] [address] [id number] Medications What How Much When Instructions Unchanged [...] ? Un (more content not included)... Normal [facility] Urine Cytology ([facility])on 12-25-2023 Method of Extraction Voided Normal [facility] Comment on above: Performed By: #### 1 [id number] #### [facility] [address] [place] [address] Number of Jars 1 Invalid Interpretation Code [facility] Comment on above: Performed By: #### 1 [id number] #### [facility] [address] [place] [address] Specimen Urine Normal [facility] Comment on above: Performed By: #### 1 [id number] #### [facility] [address] [place] [address] Type of Service Technical Only Normal [facility] Comment on above: Performed By: #### 1 [id number] #### [facility] [address] [place] [address] Urology Office/Clinic Noteon 12-25-2023 Urology Office/Clinic Note [...] mass (N32.89: Other specified disorders of bladder) [facility] 11/27/23 [facility] - 3.6 cm bladder mass. Reviewed imaging results. Advised pt bladder masses can be misread on US and may act (more content not included)... Normal [facility] Comment on above: Result Comment: Elec tronically Signed By: REX FULLER PA-C\.sammy\Date and Time Signed: 12/25/23 09:32 EDT\.br\Electronically Co-Signed By: Hortencia Thomas\Date and Time Co-Signed: 12/25/23 09:24 EDT Office Visiton 08-08-2023 Follow-up visit [id number] Fernie Naranjo D 1935 M Date Provider Department Center 08/08/2023 AllisonTOYAADÁN [facility] No family history on file Level of Service:99478 [place] OFFICE/OUTPATIENT ESTABLISHED LOW MDM 20 MIN Normal [facility] Office Visiton 02-06-2023 Follow-up visit [id number] Fernie Naranjo D 1935 M Date Provider Department Center 02/06/2023 [facility] No family history on file Level of Service:36946 [place] OFFICE/OUTPATIENT ESTABLISHED LOW MDM 20-29 MIN Normal [facility] OCC BLD IMMUNO SCREENon 07-12 OCCULT BLOOD Negative Normal NEGATIVE [facility] Comment on above: Performed By: #### O BSCRN #### [facility] [address] [place] [address] Dr. Gricel Busch MRI LSPINE WO CONon [...] by: GAY WHEELER Date: 2022-06-09 09:[address] [facility] [address] TSPINE WO CONon 2 CT [...] MACY MICHAEL Date: 2022-01-05 16:34 Normal [facility] CBC COMPLETE BLOOD COUNTon 0 12-29-2021 Erythrocyte distribution width (RBC) [Ratio] 13.4 % Normal 11.5-15.0 [facility] Comment on above: Order Comment: No: D o not add to previous draw Performed By: #### 5 [id number] #### [facility] [address] Hematocrit (Bld) [Volume fraction] 38.5 % Low 39.0-50.0 [facility] Comment on above: Order Comment: No: D o not add to previous draw Performed By: #### 5 0608 #### [facility] [address] [facility]. [address] Hemoglobin (Bld) [Mass/Vol] 13.5 g/dL Normal 13.0-17.0 [facility] Comment on above: Order Comment: No: D o not add to previous draw Performed By: #### 5 0608 #### [facility] [address] MCH (RBC) [Entitic mass] 32.4 pg Normal 27.0-33.0 [facility] Comment on above: Order Comment: No: D o not add to previous draw Performed By: #### 5 0608 #### [facility] [address] [place] [id number], [facility] MCHC (RBC) [Mass/Vol] 35.1 g/dL High 32.0-35.0 [facility] Comment on above: Order Comment: No: D o not add to previous draw Performed By: #### 5 0608 #### [facility] [address] [facility] [place] [address], [facility] MCV (RBC) [Entitic vol] 92.3 fL Normal 82.0-98.0 [facility] Comment on above: Order Comment: No: D o not add to previous draw Performed By: #### 5 0608 #### [facility] [address] [facility] [place] [address], [facility] Nucleated RBC/100 WBC (Bld) [Ratio] 0 % Normal 0-0 [facility] Comment on above: Order Comment: No: D o not add to previous draw Performed By: #### 5 0608 #### [facility] [address] [facility] [place] [address], [facility] PLAT CNT 165 10*3/uL Normal 150-400 [facility] Comment on above: Order Comment: No: D o not add to previous draw Performed By: #### 5 0608 #### [facility] [address] [facility]. [place] [id number], [facility] RBC (Bld) [#/Vol] 4.17 10*6/uL Low 4.20-5.70 [facility] Comment on above: Order Comment: No: D o not add to previous draw Performed By: #### 5 0608 #### [facility] [address] WBC (Bld) [#/Vol] 8.33 10*3/uL Normal 4.00-10.60 [facility] Comment on above: Order Comment: No: D o not add to previous draw Performed By: #### 5 0608 #### [facility] [address] [place] [address], [facility] CREATININE BLOODon 2 Creatinine [Mass/Vol] 0.82 mg/dL Normal 0.70-1.30 [facility] Comment on above: Order Comment: No: D o not add to previous draw Performed By: #### 2 5656 #### [facility] [address] [facility]. [address] GFR/1.73 sq M.predicted among non-blacks MDRD (S/P/Bld) [Vol rate/Area] mL/min/{1.73_m2} Normal >60 [facility] Comment on above: Order Comment: No: D o not add to previous draw Result Comment: [facility]'s estimated glomerular filtration rate (eGFR) will [...] individuals. Performed By: #### 2 5656 #### [facility] [address] [facility] [address] Cardiovascular Lab Reporton 12-29-2021 Cardiovascular Lab Report [facility] Patient Name: Kingsley Naranjo [facility] D MR #: [id number] Department of Physician: Adeline Carlos M.D. Division of Service Date: 12/28/2021 Cardiology Birthdate: 1935 Adult Cardiovascular Room #: 3AB [id number] [facility] [address] [place], [place] [address] Cardiovascular Laboratory Report FINAL IMPRESSIONS: 1. 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 Pittman in the [place] office in the next 2-4 weeks. 7. Follow up with Dr. Melvin as scheduled. PROCEDURES: Ultrasound-guided access to the right common femoral artery, limited femoral angiography, bilateral selective coronary angiography, angiography of internal mammary artery graft, angiography of the saphenous vein graft, placement of a 6-Nauruan MynxGrip closure device. METHODS: After risks, benefits, [...] was performed. This was upsized to a 6-Nauruan 11 cm sheath. Bilateral selective coronary angiography [...] the procedure. All catheters were removed. A 6-Nauruan MynxGrip closure device was deployed per protocol [...] marginals. Distal filling is seen into the yankton obtuse marginal via saphenous vein graft. Just [...] patent (more content not included)... Normal [facility] TROPONIN-Ion 12-28-2021 Troponin I.cardiac [Mass/Vol] 0.09 ng/mL High 0.00-0.[address] [facility] Comment on above: Order Comment: No: D o not add to previous draw Result Comment: REFE RENCE RANGES: 0.00 - 0.04 ng/ml NORMAL 0.05 - 0.50 ng/ml INDETERMINATE > 0.50 ng/ml CONSISTENT WITH AN M.I. Performed By: #### 3 [id number] #### [facility] [address] [place] [address], [facility] CBC AUTO DIFFon 12-26-2021 BASO # 0.0 103/ul Normal 0.0-0.1 [facility] Comment on above: Performed By: #### C BC #### [facility] [address] [place] [address] [address] Griecl Busch Basophils/100 WBC (Bld) 0.6 % Normal 0.2-2.0 [facility] Comment on above: Performed By: #### C BC #### [facility] [address] [place] [address] Dr. Gricel Busch EO # 0.1 103/ul Normal 0.0-0.7 [facility] Comment on above: Performed By: #### C BC #### [facility] [address] [place] [address] Dr. Gricel Busch Eosinophils/100 WBC (Bld) 1.8 % Normal 0.9-7.0 [facility] Comment on above: Performed By: #### C BC #### [facility] [address] [place] [address] Dr. Gricel Busch Erythrocyte distribution width (RBC) [Ratio] 13.1 % Normal 11.0-15.0 [facility] Comment on above: Performed By: #### C BC #### [facility] [address] [place] [address] Dr. Gricel Busch Hematocrit (Bld) [Volume fraction] 42.4 % Normal 42.0-54.0 [facility] Comment on above: Performed By: #### C BC #### [facility] [address] [place] [address] Dr. Gricel Busch Hemoglobin (Bld) [Mass/Vol] 13.9 g/dL Critically low 14.0-18.0 [facility] Comment on above: Performed By: #### C BC #### [facility] [address] [place] [address] Dr. Gricel Busch IG # 0.03 10e3/ul Normal 0.00-0.03 [facility] Comment on above: Performed By: #### C BC #### [facility] [address] [place] [address] Dr. Gricel Busch IG % 0.4 % Normal 0.0-0.5 [facility] Comment on above: Performed By: #### C BC #### [facility] [address] [place] [address] Dr. Gricel Busch LYMPH # 1.2 103/ul Normal 1.2-3.8 [facility] Comment on above: Performed By: #### C BC #### [facility] [address] [place] [address] Dr. Gricel Busch Lymphocytes/100 WBC (Bld) 16.9 % Critically low 20.5-60.0 [facility] Comment on above: Performed By: #### C BC #### [facility] [address] [place] [address] Dr. Gricel Busch MANUAL DIFF REQ NO Normal [facility] Comment on above: Performed By: #### C BC #### [facility] [address] [place] [address] Dr. Gricel Busch MCH (RBC) [Entitic mass] 31.3 pg Normal 25.9-34.0 [facility] Comment on above: Performed By: #### C BC #### [facility] [address] [place] [address] Dr. Gricel Busch MCHC (RBC) [Mass/Vol] 32.8 g/dL Normal 29.9-35.2 [facility] Comment on above: Performed By: #### C BC #### [facility] [address] [place] [address] Dr. Gricel Busch MCV (RBC) [Entitic vol] 95.5 fL Critically high 80.0-94.0 [facility] Comment on above: Performed By: #### C BC #### [facility] [address] [place] [address] Dr. Gricel Busch MONO # 0.8 103/ul Normal 0.3-0.8 [facility] Comment on above: Performed By: #### C BC #### [facility] [address] [place] [address] Dr. Gricel Busch Monocytes/100 WBC (Bld) 10.9 % Normal 1.7-12.0 [facility] Comment on above: Performed By: #### C BC #### [facility] [address] [place] [address] Dr. Gricel Busch NEUT # 4.9 103/ul Normal 1.4-6.5 [facility] Comment on above: Performed By: #### C BC #### [facility] [address] [place] [address] Dr. Gricel Busch Neutrophils/100 WBC (Bld) 69.4 % Normal 43.0-75.0 [facility] Comment on above: Performed By: #### C BC #### [facility] [address] [place] [address] Dr. Gricel Busch Platelet mean volume (Bld) [Entitic vol] 9.6 fL Normal 9.5-13.5 [facility] Comment on above: Performed By: #### C BC #### [facility] [address] [place] [address] Dr. Gricel Busch PLT 191 103/ul Normal 150-450 [facility] Comment on above: Performed By: #### C BC #### [facility] [address] [place] [address] Dr. Gricel Busch RBC 4.44 106/ul Critically low 4.70-6.10 [facility] Comment on above: Performed By: #### C BC #### [facility] [address] [place] [address] Dr. Gricel Busch WBC 7.1 103/ul Normal 4.0-11.0 [facility] Comment on above: Performed By: #### C BC #### [facility] [address] [place] [address] Dr. Gricel uBsch [facility]12 SARS-CoV-2 (COVID-19) RNA NIR+probe Ql (Unsp spec) Not detected Normal NOT DETECTED [facility] Comment on above: Result Comment: This test is not yet approved or cleared by the [place] FDA. When there are no FDA-approved or cleared tests available, and other criteria are met, FDA can make tests available under an emergency access mechanism called an Emergency Use Authorization (EUA). The EUA for this test is supported by the [place] of Health and Human Service's (HHS's) declaration [...] SARS-CoV-2. Performed By: #### C VDTB #### [facility] [facility] [address] [place] [address] Dr. Gricel Busch PROF CHEM 8 (BAS METB)on Anion gap [Moles/Vol] 9.6 mmol/L Normal [facility] Comment on above: Performed By: #### B MP #### [facility] [address] [place] [address] Dr. Gricel Busch Calcium [Mass/Vol] 9.8 mg/dL Normal 8.5-10.1 [facility] Comment on above: Performed By: #### B MP #### [facility] [address] [place] [address] Dr. Gricel Busch Chloride [Moles/Vol] 102 mmol/L Normal 98-107 [facility] Comment on above: Performed By: #### B MP #### [facility] [address] [place] [address] Dr. Gricel Busch CO2 [Moles/Vol] 28.1 mmol/L Normal 21.0-32.0 The [facility] Comment on above: Performed By: #### B MP #### [facility] [address] [address] [address] Gricel Busch Creatinine [Mass/Vol] 0.88 mg/dL Normal 0.70-1.30 [facility] Comment on above: Performed By: #### B MP #### [facility] [address] [address] [address] Gricel Busch EGFR-AF SENEGALESE >60 Normal >=60 [facility] Comment on above: Performed By: #### B MP #### [facility] [address] [address] [address] Gricel Busch EGFR-NON AF SENEGALESE >60 Normal >=60 [facility] Comment on above: Performed By: #### B MP #### [facility] [address] [place] [address] Dr. Gricel Busch Glucose [Mass/Vol] 101 mg/dL Normal 74-106 [facility] Comment on above: Performed By: #### B MP #### [facility] [address] [place] [address] Dr. Gricel Busch Potassium [Moles/Vol] 4.7 mmol/L Normal 3.5-5.1 [facility] Comment on above: Performed By: #### B MP #### [facility] [address] [place] [address] Dr. Gricel Busch Sodium [Moles/Vol] 135 mmol/L Critically low 136-145 [facility] Comment on above: Performed By: #### B MP #### [facility] [address] [place] [address] Dr. Gricel Busch Urea nitrogen [Mass/Vol] 12.0 mg/dL Normal 7.0-18.0 [facility] Comment on above: Performed By: #### B MP #### [facility] [address] [place] [address] Dr. Gricel Busch Urea nitrogen/Creatinin e [Mass ratio] 13.6 mg/mg Normal [facility] Comment on above: Performed By: #### B MP #### [facility] [address] [place] [address] Dr. Gricel Busch ECHOCARDIO M/2D COMPLETEon 0 12-21-2021 ECHOCARDIO M/2D COMPLETE Patient: KINGSLEY NARANJO Exam Date: 12/21/2021 : 1935 Gender:M Ordering : DR JENNIFER MELVIN . Admission #: [id number] Family : Order #: [id number] CLICK HERE TO VIEW EXAM ECHOCARDIOGRAM REPORT [...] on 12/21/2021 at 19:22 Approved by: Kenney Daniles M.D. on 12/21/2021 at 19:28 Normal [facility] NM STRESS/REST MULTIon 12-20 NM STRESS/REST MULTI Patient: KINGSLEY NARANJO Exam Date: 12/20/2021 : 1935 Gender:M Ordering : DR JENNIFER MELVIN . Admission #: [id number] Family : Order #: [id number] CLICK HERE TO VIEW EXAM RADIOLOGY REPORT [...] Wheeler MD on 12/20/2021 at 14:18 Normal [facility] Vital Signs Date Time Vital Sign Value Performing Clinician Facility 12-25-2023 08:38-0400 Body temperature 97.88 [degF] REX FULLER [facility] 12-25-2023 08:38-0400 Diastolic blood pressure 82 mm[Hg] REX FULLER [facility] 12-25-2023 08:38-0400 Heart rate 58 /min REX FULLER [facility] 12-25-2023 08:38-0400 Respiratory rate 16 /min REX FULLER [facility] 12-25-2023 08:38-0400 Systolic blood pressure 150 mm[Hg] REX FULLER [facility] Encounters Encounter Date Encounter Type Care Provider Facility Start: 02-15-2024 ambulatory Orestes MOBLEY [facility] ty:[facility] Start: 02-07-2024 End: 02-07-2024 ambulatory Orestes Mobley Facility:[facility] Start: 02-07-2024 End: 02-07-2024 ambulatory Orestes MOBLEY Facility:CD:[id number] Start: 01-28-2024 End: 01-28-2024 ambulatory [facility] Start: 01-28-2024 End: 01-28-2024 Encounter for preprocedural cardiovascular examination [facility] Start: 01-28-2024 Encounter for preprocedural cardiovascular examination [facility] Start: 01-15-2024 End: 01-15-2024 ambulatory Orestes MOBLEY Facility:[facility] Start: 01-15-2024 End: 01-15-2024 Patient encounter procedure Orestes MOBLEY [facility] Start: 12-31-2023 End: 12-31-2023 ambulatory Hamida Sanz Facility:[facility] Start: 12-31-2023 End: 12-31-2023 Patient encounter procedure Hamida Sanz [facility] Start: 12-25-2023 End: 12-25-2023 ambulatory REX FULLER Facility:[facility] Start: 12-25-2023 End: 12-25-2023 Lab Drop off REX E JONNY [facility] Start: 12-25-2023 End: 12-25-2023 ambulatory REX FULLER Facility:[facility] Start: 12-25-2023 End: 12-25-2023 Patient encounter procedure REX FULLER [facility] Start: 12-12-2023 ambulatory REX FULLER Facili ty:[facility] Start: 11-29-2023 ambulatory REX FULLER [facility] Start: 08-08-2023 End: 08-08-2023 ambulatory [facility] Start: 07-25-2023 End: 07-25-2023 ambulatory Not Available Start: 07-12-2023 End: 07-12-2023 ambulatory Not Available Start: 02-06-2023 End: 02-06-2023 ambulatory [facility] Start: 07-28-2022 End: 07-28-2022 ambulatory CK NIXON Facility: Start: 07-26-2022 End: 07-26-2022 ambulatory CK NIXON Facility:[facility] Start: 06-09-2022 End: 06-10-[address] JENNIFER MEVLIN . Facility:[facility] Start: 05-22-2022 End: 05-23-[address] JENNIFER MELVIN . Facility:[facility] Start: 05-14-2022 End: 06-02-[address] JENNIFER MELVIN . Facility:[facility] Start: 05-01-2022 End: 05-13-[address] JENNIFER MELVIN . Facility:[facility] Start: 01-05-2022 End: 01-06-[address] JENNIFER MELVIN . Facility:[facility] Start: 12-28-2021 End: 12-29-2021 [facility] Start: 12-26-2021 End: 12-27-[address] ADÁN PITTMAN Facility: Start: 12-21-2021 End: 12-22-[address] JENNIFER MELVIN . Facility: Start: 12-20-2021 End: 12-21-[address] JENNIFER MELVIN . Facility: Procedures Date Procedure Procedure Detail Performing Clinician Start: 06-30-2009 Colonoscopy REX SÁNCHEZ Cardiac catheterization JOSE MOYA JONNY Coronary angioplasty JOHNSON Beckman JONNY Repair of inguinal hernia JE KATHINITA JONNY Comment on above: left Immunizations Immunization Date Immunization Notes Care Provider Fa sushil 03-26-2023 influenza virus vaccine, unspecified formulation REX FULLER [facility] 09-16-2021 SARS-CoV-2 mRNA (oauriedvfhw-jinr-yfwsz se) vaccine REX JONNY [facility] Comment on above: Result Comment: 2023: [id number] 02-24-2021 SARS-CoV-2 (COVID-19 ) mRNA BNT-162b2 vax REX FULLER [facility] Comment on above: Result Comment: 2023: [id number] 02-18-2021 influenza virus vaccine, unspecified formulation REX JONNY [facility] 06-30-2020 SARS-CoV-2 (COVID-19 ) mRNA BNT-162b2 vax REX JONNY [facility] 06-07-2020 SARS-CoV-2 (COVID-19 ) mRNA BNT-162h8 vax REX JONNY [facility] 04-05-2020 influenza virus vaccine, unspecified formulation REX JONNY [facility] 03-07-2019 influenza virus vaccine, unspecified formulation REX JONNY [facility] 04-13-2017 influenza virus vaccine, unspecified formulation REX JONNY [facility] 02-12-2017 influenza virus vaccine, unspecified formulation REX JONNY [facility] 11-13-2016 pneumococcal polysaccharide vaccine, 23 valent REX JONNY [facility] 02-12-2013 influenza virus vaccine, unspecified formulation REX JONNY [facility] 03-11-2003 pneumococcal polysaccharide vaccine, 23 valent REX JONNY [facility] NEGATED: Highlighted row has not occurred!02-21-2019 influenza virus vaccine, unspecified formulation REX JONNY [facility] Comment on above: Result Comment: Will obtain from primary care physician Payers Date Payer Category Payer Self-pay 1960 Medicare [id number] 1960 Private Health Insurance [id number] 1935 Unknown [id number] 2.16.8 [id number] 1934 Unknown [id number] 2.16.84 0.1.875420.3.579.2.593 1934 Unknown [id number] 2.16.84 0.1.150692.3.579.2.593 1934 Unknown [id number] 2.16.84 0.1.367406.3.579.2.593 1934 Unknown [id number] 2.16.84 0.1.023193.3.579.2.593 1934 Unknown [id number] 2.16.84 0.1.995559.3.579.2.593 1934 Unknown [id number] 2.16.84 0.1.153985.3.579.2.593 1934 Unknown [id number] 2.16.84 0.1.740608.3.579.2.593 1934 Unknown [id number] 2.16.84 0.1.854549.3.579.2.593 1934 Unknown [id number] 2.16.84 0.1.977619.3.579.2.593 1934 Unknown [id number] 2.16.84 0.1.528914.3.579.2.593 1934 Unknown [id number] 2.16.84 0.1.496751.3.579.2.1259 1934 Unknown [id number] 2.16.84 0.1.971841.3.579.2.1259 1934 Unknown [id number] 2.16.8 40.1.056147.3.579.2.727 1934 Unknown [id number] 2.16.8 40.1.856785.3.579.2.727 1934 Unknown [id number] 2.16.8 40.1.481333.3.579.2.727 1934 Unknown [id number] 2.16.8 40.1.729885.3.579.2.727 1934 Unknown [id number] 2.16.8 40.1.444622.3.579.2.727 1934 Unknown [id number] 2.16.8 40.1.780122.3.579.2.727 1934 Unknown [id number] 2.16.8 40.1.100614.3.579.2.727 1934 Unknown [id number] 2.16.8 40.1.002701.3.579.2.727 Unknown [id number] 2.16.8 40.1.896606.3.579.2.531 Social History Date Type Detail Facility Start: 12-25-2023 Tobacco smoking status Never s moked tobacco (finding) [facility] Tobacco smoking status Never [facility] Sex Assigned At Male [facility] Functional Status Date Assessment Result Facility 01-15-2024 Functional Status N/A [facility] 12-25-2023 Functional Status N/A [facility] Clinical Notes 12-30-2021 to 01-28-2024 Note Date & Type Note Facility 01-28-2024 Note Remains stable witho ut concerning symptoms [facility] 01-28-2024 Note Lipid abnormalities are well controlled Continue crestor [facility] 01-28-2024 Note Coronary artery dise ase is stable without any concerning symptoms Continue GDMT- ASA, coreg, crestor and imdur continue risk factor modifications- heart healthy diet, regular exercise as tolerated and continue all medications. [facility] 01-28-2024 Note Hypertension is well controlled currently. Continue coreg, norvasc, and imdur Renal function normal [facility] 01-28-2024 Note [facility] CARDIOLOGY PROGR ESS NOTE HPI: Kingsley Naranjo is a 88 y.o. male here for routine 6 month f/U and surgery clearance HPI 88 yo male presents today for 6 mo follow up CAD, hyperlipidemia, and hypertension. Patient presents today for surgery clearance for an upcoming cystoscopy possible removal of 2 bladder masses. Denies any concerning cardiac symptoms no chest pain, orthopnea, shortness of breath with exertion. Admits that he he is able to walk up a flight of stairs and or around without chest pain or shortness of breath limiting him. Pt denies sob, chest pain, palpatiations. Pt had pre surgery testing done. Review of Systems Cardiovascular: Negative for leg swelling (L>R). Musculoskeletal: Positive for back pain. All other systems reviewed and are negative. 08/08/[address] Pittman Chief Complaint: Patient here for 6 mo [...] are working to adjust his thyroid replacement. Visit Vitals BP 118/65 (BP Location: Right arm, Patient Position: Sitting) Pulse 95 Ht 1.753 m (5' 9 ) Wt 73.5 kg (162 lb) SpO2 96% BMI 23.92 kg/m??? Smoking Status Never BSA 1.89 m??? No Known Allergies Medications: Current Outpatient Medications on File Prior to Visit Medication Sig Dispense Refill amLODIPine (Norvasc) 2.5 mg tablet Take 2.5 mg by mouth in the morning. aspirin 81 mg EC tablet in the morning. carvedilol (Coreg) 3.125 mg tablet Take 3.125 mg by mouth in the morning and at bedtime. ergocalciferol, vitamin D2, (VITAMIN D2 ORAL) Vitamin D2 1 tablet twice a week isosorbide mononitrate ER (Imdur) 30 mg 24 hr tablet Take 15 mg by mouth in the morning. levothyroxine (Synthroid, Levoxyl) 50 mcg tablet Take 50 mcg by mouth before breakfast. rosuvastatin (Crestor) 20 mg tablet Take 20 mg by mouth at bedtime. simvastatin (Zocor) 40 mg tablet in the morning. tamsulosin (Flomax) 0.4 mg 24 hr capsule [...] regular rhythm. Pulses: Dorsalis pedis pulses are 2 on the right side and 2on the left side. Posterior tibial pulses are 2 on the right side and 2 on the left side. Heart sounds: Normal [...] General: No focal deficit present. Mental Status: he is alert and oriented to person, place, and time. Psychiatric: Mood and Affect: Mood normal. Behavior: Behavior normal. Thought Content: Thought content normal. Judgment: Judgment normal. Labs: 01/24/24 CBC stable NA 139, K+ 4.6 normal BUN 21, CR 0.98- normal 11/22/23 CBC stable- noted low HGB NA 134, K+ 4.4- normal BUN 20, CR 0.92 GFR > 60- normal renal function Liver function normal CHOL 121, Trig 48, LDL 47, HDL 65- very well controlled TSH normal Last lab values have been reviewed CV Testing: EKG 01/24/24 essentially unchanged from previous except now bradycardia- asymptomatic 10/13/[address]/CT abdomen pelvis wo/w con IMPRESSION: 1. 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 No appreciable extension through the wall. No lymphadenopathy. 2. Enlarged prostate protruding into base of bladder. 3. 6 mm nodule versus scarring within right minor fissure incompletely included on today's study. Given patient's history of urinary bladder mass consider CT chest with IV contrast for further evaluation. Aorta- no aneurysm or dissection noted. Electronically authenticated by: MACY MICHAEL Date: 12/27/2023 15:34 Service Date: 12/28/2021 Cardiovascular Laboratory Report FINAL IMPRESSIONS: 1. 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 [facility] 01-28-2024 Note Pt is here for a six month follow up. Pt denies sob, chest pain, palpatiations. Pt had pre surgery testing done. Review of Systems Cardiovascular: Negative for leg swelling (L>R). Musculoskeletal: Positive for back pain. All other systems reviewed and are negative. [facility] 01-28-2024 Note RCRI= 2 points Class III Risk 10.1 % 30-day risk of , PR, or cardiac arrest From a cardiac perspective pt may proceed with planned surgery/urological procedure, he is a moderate risk for a moderate to high risk procedure. Prefer Aspirin to not be held, but if absolutely necessary may hold 5-7 days. Please monitor hemodynamics carefully and prevent any major fluid shifts. [facility] 01-15-2024 Evaluation + Plan note Extrac ariadna from: Title:Urology Progress Note Author:Andrey MOBLEY MD Date:01/15/24 Impression and Plan Impression: #1. He has bladder tumors. These need to get resected. Plan: #1. He is getting scheduled for cystoscopy and TURBT under anesthesia. Future Appointments Appointment Date:02/15/2024 08:45:00 AM Scheduled Provider:Orestes MOBLEY MD Location:[facility] Appointment Type:URO Office Visit Future Scheduled Tests Laboratory* Urine Culture 12/31/23 [facility] 09-03-2024 Hospital Discharge instructions Patient Education 01/15/2024 [...] Up Care 12/31/2023 09:27:58 With:Orestes MOBLEY Address: [address] [place], [place] [address]- Business (1) When: Unknown Comments:Office will call to schedule follow up [facility] 09-03-2024 NoteProgress Note-Physician Patient: KINGSLEY NARANJO Age: 88 years Sex: Male : 1935 Associated Diagnoses: None Author: MATEO DICK, Orestes Phan X this gentleman has gross hematuria and [...] list: All Problems Hypertension / SNOMED CT 8996387193 / Confirmed BPH with elevated PSA / SNOMED CT 140349405 / Confirmed Right inguinal hernia / SNOMED CT 187003030 / Confirmed Hypothyroidism / SNOMED CT 89937579 / Confirmed Arteriosclerotic heart disease (ASHD) / SNOMED CT 35460763 / Confirmed High cholesterol / SNOMED CT 34375417 / Confirmed Right groin pain / SNOMED CT 0049443216 / Confirmed 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 Ischemic heart disease (3727856199): Resolved. Family History: Bilateral primary ovarian cancer Mother Procedure history: Colonoscopy (387360203) on 06/30/2009 at 73 Years. Cardiac catheterization (17905473). Coronary angioplasty (45110460). Repair of inguinal hernia (07116379). Comments: 01/15/2019 15:25 EDT - Rogelio Jha [...] scheduled for cystoscopy and [facility]URBT [facility] anesthesia[facility] Comment: Electronically Signed By: MATEO DICK, Orestes Punete\Date and Time Signed: 01/15/24 11:18 EDT 01-15-2024 [...] if you have a fever over 100 degrees.[facility] 12-25-2023 Evaluation + Plan note Diagnostic Tests Pending * Creatinine 12/25/23 [facility] 08-13-2024 Evaluation + Plan note Diagnostic Tests Pending * Urine Cytology ([facility]) 12/25/23 [facility] 08-13-2024 Hospital Discharge instructions Patient Education 12/25/2023 [...] including vitamins, herbs, eye drops, creams, and lxkj-waw-dgwzigh medicines. Any problems you or family members [...] provider tells you to take them. Taking oces-tea-fgrkhdl medicines, vitamins, herbs, and supplements. Tests You [...] Follow these instructions at home: Medicines Take dxmm-zyj-ugqjeyh and prescription medicines only as told by [...] provider. Document Revised: 01/11/2022 Document Reviewed: 12/10/2020 [employer] Patient Education 2022 [employer]. 12/25/2023 09:15:16 Hematuria, Adult Hematuria, Adult Hematuria [...] Follow these instructions at home: Medicines Take xutt-lte-fckkgnc and prescription medicines only as told by [...] or the blood stops without treatment. Take ajtp-bnm-okxasrw and prescription medicines only as told by your health care provider. Drink enough fluid to keep your urine pale yellow. This information is not intended to replace advice given to you by your health care provider. Make sure you discuss any questions you have with your health care provider. Document Revised: 12/29/2020 Document Reviewed: 12/29/2020 [employer] Patient Education 2022 [employer]. Follow Up Care 12/06/2023 14:27:33 With:RXE FULLER PA-C, URL Address: [address] [place] [phone] When: Unknown [facility] 08-13-2024 NotePatient Education Urology Cystoscopy Cystoscopy is [...] including vitamins, herbs, eye drops, creams, and undh-jfn-nrkskpk medicines. ? Any problems you or family [...] tells you to take them. ? Taking cmrh-wym-mapkxwd medicines, vitamins, herbs, and supplements. Tests You [...] these instructions at home: Medicines ? Take wxap-xha-vdgeupy and prescription medicines only as told by [...] your health care provider, (more content not included)...[facility] Chief [...] FINAL IMPRESSIONS: 1. 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 Pittman in the [place] office in the next 2-4 weeks. 7. Follow up with Dr. Melvin as scheduled. PROCEDURES: Ultrasound-guided access to the right common femoral artery, limited femoral angiography, bilateral selective coronary angiography, angiography of internal mammary artery graft, angiography of the saphenous vein graft, placement of a 6-Nauruan MynxGrip closure device. Echocardiogram 12/2021: Global left ventricular systolic function is normal; EF 55 to 60%. Mild biatrial dilatation. Mild to moderate tricuspid regurgitati (more content not included)...[facility]09-26-2023 [facility]iology Clinic Note Chief Complaint: Patient here for 6 mo follow up CAD, hypertension, and hyperlipidemia. Had labs at the [place] in September, and his PCP at the [place] switched his statin to Crestor. He and [...] FINAL IMPRESSIONS: 1. 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 Pittman in the [place] office in the next 2-4 weeks. 7. Follow up with Dr. Melvin as scheduled. PROCEDURES: Ultrasound-guided access to the right common femoral artery, limited femoral angiography, bilateral selective coronary angiography, angiography of internal mammary artery graft, angiography of the saphenous vein graft, placement of a 6-Nauruan MynxGrip closure device. Labs 09/18/2022: Total cholesterol 119, LDL 63, (more content not included)...[facility]01-10-2023 NotePROCEDURE: XR LSPINE MIN 4 VIEWS HISTORY: [...] Electronically authenticated by: MACY MICHAEL Date: 2022-05-23 08:14[facility]01-10-2023 NotePROCEDURE: XR HIP LT 2 3V W [...] Electronically authenticated by: MACY MICHAEL Date: 2022-05-23 08:09[facility]08-19-2022 NoteMR#: [id number] [facility] Pt. Name: Siddharth Naranjonile Markham Admitted: 12/28/2021 Discharged: 12/29/2021 Date of : [...] as bypass graft angiography. Coronary angiogram showed yankton arteries left main is calcified but patent. [...] Geo/Peterson Jensen MD Date Trans: 12/30/2021 09:11 Anna/jeanne [id number] cc: Jennifer Melvin M.D. [address] [id number] Hospital[facility] + [facility] note Future Appointments Appointment Date:01/08/2024 08:30:00 AM Scheduled Provider: Location:[facility] Appointment Type:Urology CALL PAT FT Appointment Date:01/15/2024 10:45:00 AM Scheduled Provider: Location:[facility] Appointment Type:Urology FT Future Scheduled Tests Laboratory* Urine Culture 12/31/23 [facility] Hospital course Narrative No data available for this section [facility] Hospital Discharge instructions No data available for this section [facility] Progress note No data available for this section [facility] Summary Purpose Family History No Family History Records FoundNo Family History Records FoundNo Family History Records Found No data available for this section No data available for this section No Family History Records Found No data available for this section No data available for this section No Family History Records FoundNo Family History [...] and content) DATE CREATED AUTHOR 01/08/2022 [facility] DATE CREATED AUTHOR AUTHOR'S ORGANIZ ATION 08/06/2022 [facility] DATE CREATED AUTHOR AUTHOR'S ORGANIZ ATION 07/26/2023 [facility] EPIC DATE CREATED AUTHOR AUTHOR'S ORGANIZ ATION 12/31/2023 [facility] DATE CREATED AUTHOR AUTHOR'S ORGANIZ ATION 01/28/2024 [facility] DATE CREATED AUTHOR AUTHOR'S ORGANIZ ATION 02/12/2024 [facility] DATE CREATED AUTHOR AUTHOR'S ORGANIZ ATION 02/14/2024 [facility] Patient Care team informatio n (unrecognized section and content) Personnel Name: Jennifer Melvin MD Address: Address: [address] [place] [address] Personnel Name: Jennifer Melvin MD Address: Address: [address] [place] [address] Personnel Name: Jennifer Melvin MD Address: Address: [address] [place] [address] Personnel Name: Jennifer Melvin MD Address: Address: [address] [place] [address] FOR RECORDS PERTAINING TO PATIENTS WHO ARE [...] BE BASED ON THE PRIMARY CLINICAL RECORDS. [facility]. provides no warranty or guarantee of the accuracy or completeness of information in this document.
[2024-02-15 11:29] LABS: Erythrocyte Sedimentation Rate 35 mm/hr (<=20)
[2024-02-15 11:52] LABS: Alanine Aminotransferase 43 U/L (16-63); Albumin Globulin Ratio 1.1; Albumin Level 3.4 g/dL (3.4-5.0); Alkaline Phosphatase 87 U/L (46-116); Aspartate Amino Transferase 27 U/L (15-37); BUN Creatinine Ratio 15.4; Bilirubin Total 0.7 mg/dL (0.2-1.0); C Reactive Protein 1.47 mg/dL (<=0.50); Calcium 9.9 mg/dL (8.5-10.1); Carbon Dioxide 27.3 mmol/L (21.0-32.0); Chloride 101 mmol/L (98-107); Estimated GFR (African America >60 (>=60 mL/min/1.73m^2); Estimated GFR (Non-African Ame >60 (>=60 mL/min/1.73m^2); Glucose 106 mg/dL (74-106); Potassium 4.3 mmol/L (3.5-5.1); Sodium 133 mmol/L (136-145); Total Protein 6.4 g/dL (6.4-8.2); Uric Acid 3.9 mg/dL (3.5-7.2)
[2024-02-16 04:08] LABS: PSA, Free 2.48 ng/mL; Prostate Specific Ag 9.4 ng/mL (0.0-4.0)
== END 2024-02-15 10:46 | disposition home or self-care (01) ==
LOC: LAB 10:48
PROVIDERS: PCP Family Medicine; Visit Provider Family Medicine
DX: M10.9 Gout, unspecified (principal); I10 Essential (primary) hypertension; Z12.5 Encounter for screening for malignant neoplasm of prostate
CPT/HCPCS: 36415; 80053; 84153; 84154; 84550; 85652; 86140

== ENCOUNTER 2024-02-19 00:33 | Emergency (ER) | payer MEDICARE, OTHER, SELFPAY ==
[2024-02-19 00:39] VITALS: BP 183/92; PULSE 71; TEMP 37; O2SAT 98; BMI 23.6
--- OUTSIDE RECORDS SUMMARY | 2024-02-19 00:42 | XMS_ITS | CCD ---
Author Organization [facility] [employer] Care Team Providers Care Coat Operator Name Role Phone ELTAHAWY, EHAB A Attending Unavailable ELTAHAWSachi, EHAB A Admitting Unavailable DOUGYJONASTUCKER Referring Unavailable DOUGYTUCKER Primary Care Unavailable HOY ., DR RODRIGUEZ [...] DR RODRIGUEZ Primary Care Unavailable ELTAHAWY, DR VALLEOJ Attending Unavailable ELTAHAWY, DR VALLEJO Admitting Unavailable [...] Consulting Unavailable TOYA, DR VALLEJO Consulting Unavailable Tucker Melvin Primary Care Physician REX FULLER Attending Unavailable Tucker Melvin Referring Unavailable JONNY, REX Jackson Attending Unavailable Tucker Melvin Referring Unavailable JONNY, REX Jackson Admitting Unavailable JONNY, REX Jackson Attending Unavailable ELTAHAWY, ADÁN Attending Unavailable ELTAHAWY, ADÁN Attending Unavailable MEGAN, VINH Attending Unavailable Mobley, Orestes Attending Unavailable Mobley, Orestes Admitting Unavailable MOBLEY, Orestes Beckman Attending Unavailable Galea, Hamida Mayen Attending Unavailable MOBLEY, Orestes Beckman Attending Unavailable MOBLEY, Orestes R Admitting Unavailable MOBLEY, Orestes Beckman Attending Unavailable MOBLEY, Orestes Beckman Referring Unavailable MOBLEY, Orestes Beckman Attending Unavailable MOBLEY, Orestes Beckman Attending Unavailable Allergies Allergy Classification Reported Allergen(s) Allergy Type Date of Onset Reaction(s) Facility (2 sources) No Known Medication Allergies; Translations: [No Known Medication Allergies] Propensity to adverse reactions (disorder) [facility] Repository Medications Current Medications Medication Drug Class(es) [...] procedure, # 2 tab(s), Refills(s) 0, Pharmacy: [facility]/pharmacy #[id number], 178, cm, 12/25/23 8:48:00 EDT, Height/Length [...] disease (20 sources) Atherosclerotic heart disease of [place] coronary artery without angina pectoris; Translations: [Angina [...] te Episodic/Chronic Other aftercare (1 source) 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 Last OV 12/25/23 by RICHY, dx: gross hematuria, bladder mass, bladder pain, kidney stone, BPH with obstruction/LUTS, elevated PSA. *Tamsulosin 0.4mg qd per PCP. CTU 12/26/23 [facility] showed urinary bladder right lateral wall mass. S/p Cysto 01/15/24. Hematuria: yes in his catheter bag when he moves around he notices it Leaking: a little around the catheter Abdominal pain: a little achiness since procedure in bladder area Flank pain: denies History of Present Illness Tests reviewed: reviewed UA, cytology, CT, path report. I have reviewed the previous health record information and history for this patient from Dr. Mobley. I have reviewed and verified the staff HPI to be accurate for this encounter. There have been no associated fever, chills, flank pain, or blood in the urine. Denies any urinary infections since last encounter. Review of Systems PHQ Score Initial Depression Screen Score: 0 SCORE ROS - Provider Constitutional: denies weight loss, denies hot flashes. Eyes: denies eye problems. Gastrointestinal: denies nausea, denies vomiting. Cardiovascular: denies chest pain or angina. Integumentary: no dryness Musculoskeletal: denies musculoskeletal symptoms. ENMT: denies otolaryngeal symptoms. Respiratory: no shortness of breath. Heme/Lymph: denies easy bleeding tendency, denies easy bruising tendency. Psychiatric: no confusion, no anxiety. Genitourinary: See HPI. Physical Exam Vitals & Measurements T: 37 ?C(Temporal Artery) HR: 62(Peripheral) RR: 16 BP: 129/73 HT: 70 in HT: 178 cm WT: 73 kg WT: 160.6 lb BMI: 23.04 General Appearance: alert, no distress, well nourished, well developed male. Assessment/Plan 88 yo male here to discuss path report from recent TURBT. Aspirin. Nitro is on med list. Pt accompanied by son today. 1. Bladder cancer (C67.9: Malignant neoplasm of bladder, unspecified) S/p Cystoscopy 10/01/15 by PRW. Had gross hematuria 09/01/23. PCP rx'd Cipro 09/03/23. Micro UA 09/03/23 - 5-10 RBC, 0-2 WBC. Neg ucx. UA 10/13/23 - 20-50 RBC, 0-2 WBC. No ucx done. IVAN 11/27/23 [facility] - 3.6 cm bladder mass. PCP rx'd Cefdinir 11/21/23 due to bladder pain. Had microscopic blood per PCP's office 12/2023. Was given a two-day course of Cefdinir again. IVAN 11/27/23 [facility] - 3.[address] Urogram 12/26/23 [facility] - Protruding from posterior R wall is a 2.3 cm mass with peripheral calcifications. S/p cysto 01/15/24 - Bladder is abnormal, trabeculated (Severe (3), Multiple open deep diverticuli.), 3 cm papillary classic bladder tumor on right lateral wall. Necrotic tissue is noted over it. A few small 1 cm satellite lesions adjacent to it. On the left wall, there are some sheets of small mildly papillary lesions suggestive of TCC. Urine cytology - atypia, reactive. S/p TURBT 02/07/24. Howe removed in office today without complications. 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 Results reviewed with pt and his son in detail. Called and spoke with [facility] pathologist. Reviewed pathology slides and he confirmed that there is no muscle present. Explained to pt due to this we have to re-resect. Pt agrees with plan. -Will proceed with repeat TURBT due to no muscle being present. The procedure risks, benefits, details, and treatment alternatives have been discussed with the patient. These include bleeding -- sometimes to the point of hemorrhaging, infection, risk of bladder perforation, recurrence of bladder tumor in 60-70% of patients, need for indwelling catheter for a variable amount of time, as well as the rare risk of needing an open operation to repair the bladder, among others. Additional therapy as well as follow-up bladder evaluation will most likely be required. Full informed consent has been obtained. Will order General anesthesia. 2. Kidney stone (N20.0: Calculus of kidney) IVAN 11/27/23 [facility] - Subcentimeter echogenic foci, nonobstructing nephrolithiasis. CT Urogram 12/26/23 [facility] - No stones or hydro. No recent stone passage or flank pain. 3. BPH with obstruction/lower urinary tract symptoms (N40.1: Benign prostatic hyperplasia with lower urinary tract symptoms) S/p Cystoscopy 10/01/[address] Urogram 12/26/23 [facility] - Enlarged prostate protrudes into the base of the bladder. S/p cysto 01/15/24 - obstructed prostate. Prior IPSS 9. Taking Tamsulosin 0.4mg qd per PCP. Not voicing any urinary habit complaints. -Cont Tamsulosin and sx monitoring 4. Elevated PSA (R97.20: Elevated prostate specific antigen [PSA]) PSA 08/02/15 - 4.89 04/10/17 - 4.17 07/18/17 - 4.59 07/20/17 - 4.9 & 26.1% (just a total was also done that day, 4.30) 08/06/20 - 5.25 08/16/20 - 6.1 & 32.6% S/p TRUS/bx 03/24/09 by PRW - BPH with chronic inflammation. GRACE in left lateral mid. S/p TRUS/bx 08/04/09 by PRW - BPH w (more content not included)... Normal [facility] Comment on above: Result Comment: Elec tronically Signed By: Orestes MOBLEY MD\Date and Time Signed: 02/15/24 09:23 EDT\.br\Electronically Co-Signed By: Kate Seth.br\Date and Time Co-Signed: 02/15/24 09:16 EDT Bryce 02-07-2024 L Specimen: [id number] Received: 02/08/24 Status: GIL Luciano Num: [id number] Spec Type: Surgical Subm Dr: Orestes Mobley MD Tissues: A Urinary Bladder - biopsy (BLADDER TUMOR) Procedures: HE/2, Gross/Micro L4 Age/ Patient Sex Location Account Attending Physician Kingsley Naranjo 88/M LABELL [id number] Orestes Mobley MD SPEC NUM: [id number] RECD: 02/08/24 STATUS: GIL LUCIANO NUM: [id number] TANNER: 02/07/24-1 [facility] DR: Orestes Mobley MD ENTERED: 02/08/24 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 ---- Specimen: [id number] Received: 02/08/24 Status: GIL Luciano Num: [id number] Spec Type: Surgical Subm Dr: Orestes Mobley MD Tissues: A Urinary Bladder - biopsy (BLADDER TUMOR) Procedures: HE/2, Gross/Micro L4 ---- Patient: Kingsley Naranjo [id number] (Continued) ---- Specimen: [id number] Received: 02/08/24 (Continued) Signed (signature on file) Philomena Busch MD 02/11/24 1728 ---- Specimen: [id number] Received: 02/08/24 Status: GIL Luciano Num: [id number] Spec Type: Surgical Subm Dr: Orestes Mobley MD Tissues: A Urinary Bladder - biopsy (BLADDER TUMOR) Procedures: SONIYA/Kan, Gross/Micro L4 ---- Patient: Kingsley Narajno [id number] (Continued) ---- Specimen: [id number] Received: 02/08/24 (Continued) Microscopic Description Microscopic examinations are performed supporting the above interpretation CPT Codes 76678 ---- ---- Specimen: [id number] Received: 02/08/24 Status: GIL Mustapha Num: [id number] Spec Type: Surgical Subm Dr: Orestes Mobley MD Tissues: A Urinary Bladder - biopsy (BLADDER TUMOR) Procedures: HE/Kan, Gross/Micro L4 ---- Patient: Kingsley Naranjo [id number] (Continued) ---- Signed (signature on file) Philomena Busch MD 02/11/24 1728 Normal [facility] Office Visiton 01-28-2024 Follow-up visit [id number] Fernie Naranjo 1935 M Date Provider Department Center 01/28/2024 120-MEGAN, VINH BH CARD [facility] No family history on file Level of Service:15695 CT OFFICE/OUTPATIENT ESTABLISHED MOD MDM [address] [facility] Main OR Intraoperative Recor don 01-15-2024 Main OR Intraoperative Record Main OR Intraoperative Record IntraOp Document Type FTURO Summary Primary Physician: Orestes MOBLEY MD Finalized Date/Time: 01/15/24 11:19:04 Pt. Name: KINGSLEY NARANJO.O.B./Sex: 1935 Male Med Rec #: [id number] Physician: Orestes MOBELY MD Financial #: [id number] Pt. Type: O Room/Bed: / Admit/Disch: 01/15/24 [...] Deborah Rodríguez Role Performed Surgeon - Primary Production Metal Sprayer - Primary Scrub - Primary Time In 01/15/24 11:04:00 01/15/24 11:04:00 01/15/24 11:04:00 Time Out 01/15/24 11:16:00 01/15/24 11:16:00 01/15/24 11:16:00 Procedure CYSTOSCOPY LOCAL(.) CYSTOSCOPY LOCAL(.) CYSTOSCOPY LOCAL(.) Comments Last Modified By: Yasmin MARQUIS, Luanne Hoffman RN, Luanne Hoffman RN, Luanne [...] Out Orestes MOBLEY MD, Verified (If Participants Yasmin MARQUIS, Luanne Applicable) Jw Tyler Laura C, MIKAYLA SALVADOR MD Time Out Complete 01/15/24 11:07:00 Allergies Reviewed? [...] By: Luanne Hoffman RN 01/15/24 11:19 Normal [facility] Main OR Preoperative Recordo n 01-15-2024 Main OR Preoperative Record Main OR Preoperative Record Holding Area Document Type FTURO Summary Primary Physician: Orestes MOBLEY MD Finalized Date/Time: 01/15/24 10:31:41 Pt. Name: KINGSLEY NARANJO /Sex: 1935 Male Med Rec #: [id number] Physician: Orestes MOBLEY MD Financial #: [id number] Pt. Type: O Room/Bed: / Admit/Disch: 01/15/24 [...] Complaints of Pain: No Skin Integrity Intact, [place], Warm, & Dry Vitals - EU Blood Pressure 126/73 Pulse 80 bpm Respirations 18 br/min SPO2 Additional None Specimens Collected Last Modified By: Mari Estrella LPN 01/15/24 10:31:36 Finalized By: Mari Estrella LPN Document Signatures Signed By: Mari Estrella LPN 01/15/24 10:31 Normal [facility] Operative Reporton Operative Report Operative Report Patient: [...] for cystoscopy and TURBT under anesthesia.. Normal [facility] Comment on above: Result Comment: Elec tronically Signed By: MATEO DICK, Orestes Campos.sammy\Date and Time Signed: 01/15/24 11:16 EDT Urine Cytology ([facility])on 0 12-30-2023 Microscopic exam Cytology (U) [Interp] Diagnosis Info Invalid Interpretation Code [facility] Comment on above: Result Comment: A:Ur ine,Urine:Voided Interpretation - Atypical Urothelial Cells; Favor Reactive Process. Adequate cellularity for evaluation. MicroScopic Description - Adequacy - Adequate Gross Description Site ID:A color Yellow fixative Alcohol Specimen designated Urine received in alcohol preservative and labeled with the patient?s name, consists of 90ml clear yellow fluid. Electronically signed by : on: 12/30/2023 11:24:24 Performed By: #### 1 [id number] #### [facility] Laboratory [address] [place] [address] Ambulatory Visit Summaryon 12-25-2023 Ambulatory Visit Summary [...] REX FULLER PA-C Primary Care Physician - Tucker Melvin MD Referring Physician - Tucker Melvin MD This Is Your Medications List [...] Schedule the Following Appointments Follow Up with JONNY BATEMAN, ZELDA KIM When: Where: [address] [place] [address] [phone] Medications What How Much When Instructions Unchanged [...] ? Un (more content not included)... Normal [facility] Ambulatory Visit Summary Ambulatory Visit Summary JAMSHID NARANJOBRI [place] :1935 Visit Date:12/25/2023 Ambulatory Visit Instructions Your Diagnosis Gross hematuria Bladder mass Kidney stone BPH with obstruction/lower urinary tract symptoms Elevated PSA Tests Performed CT Urogram -- Results Pending -- Please visit your patient portal for your results or contact your primary care physician. Your Care Team Attending Physician - REX FULLER PA-C Primary Care Physician - Tucker Melvin MD Referring Physician - Tucker Melvin MD This Is Your Medications List [...] Schedule the Following Appointments Follow Up with JONNY BATEMAN, ZELDA KIM When: Where: [address] [place] [address] [phone] Medications What How Much When Instructions Unchanged [...] ? Un (more content not included)... Normal [facility] Urine Cytology ([facility])on 12-25-2023 Method of Extraction Voided Normal [facility] Comment on above: Performed By: #### 1 [id number] #### [facility] [address] Number of Jars 1 Invalid Interpretation Code [facility] Comment on above: Performed By: #### 1 [id number] #### [facility] [address] [id number] Specimen Urine Normal [facility] Comment on above: Performed By: #### 1 [id number] #### [facility] [address] [id number] Type of Service Technical Only Normal [facility] Comment on above: Performed By: #### 1 [id number] #### [facility] [address] [place] [address] Urology Office/Clinic Noteon 12-25-2023 Urology Office/Clinic Note Urology Office/Clinic Note Chief Complaint New patient gross hematuria HPI Staff New pt referred by Dr. Tucker Melvin for UTI, gross hematuria, and BPH. [...] yo male new pt referred by Dr. Tucker Melvin for UTI, hematuria, and BPH. Prior [...] may act (more content not included)... Normal [facility] Comment on above: Result Comment: Elec tronically Signed By: REX FULLER PA-C\.br\Date and Time Signed: 12/25/23 09:32 EDT\.br\Electronically Co-Signed By: Hortencia Thomas\.br\Date and Time Co-Signed: 12/25/23 09:24 EDT Office Visiton 08-08-2023 Follow-up visit [id number] Fernie Naranjo 1935 M Date Provider Department Center 08/08/2023 271-ADÁN SHARIF CARD [facility] No family history on file Level of Service:32261 CT OFFICE/OUTPATIENT ESTABLISHED LOW MDM [address] [facility] Office Visiton 02-06-2023 Follow-up visit [id number] Fernie Naranjo 1935 M Date Provider Department Center 02/06/2023 271-ELTALIZETT, EHAB CARD [facility] No family history on file Level of Service:51700 CT OFFICE/OUTPATIENT ESTABLISHED LOW MDM 20-[address] [facility] OCC BLD IMMUNO SCREENon 07-12 OCCULT BLOOD Negative Normal NEGATIVE [facility] Comment on above: Performed By: #### O BSCRN #### [facility] [address] [address] [address] Gricel Busch MRI LSPINE WO CONon [...] GAY WHEELER Date: 2022-06-09 09:46 Normal [facility] CT TSPINE WO CONon 2 CT [...] by: MACY MICHAEL Date: 2022-01-05 16:34 Normal [facility] CBC COMPLETE BLOOD COUNTon 0 12-29-2021 Erythrocyte distribution width (RBC) [Ratio] 13.4 % Normal 11.5-15.[address] [facility] Comment on above: Order Comment: No: D o not add to previous draw Performed By: #### 5 [id number] #### [facility] [address] Hematocrit (Bld) [Volume fraction] 38.5 % Low 39.0-50.[address] [facility] Comment on above: Order Comment: No: D o not add to previous draw Performed By: #### 5 0608 #### [facility] [address] [place] [address], [facility] Hemoglobin (Bld) [Mass/Vol] 13.5 g/dL Normal 13.0-17.[address] [facility] Comment on above: Order Comment: No: D o not add to previous draw Performed By: #### 5 0608 #### [facility] [address] [facility] [place] [address], [facility] MCH (RBC) [Entitic mass] 32.4 pg Normal 27.0-33.[address] [facility] Comment on above: Order Comment: No: D o not add to previous draw Performed By: #### 5 0608 #### [facility] [address] [place] [address], [facility] MCHC (RBC) [Mass/Vol] 35.1 g/dL High 32.0-35.[address] [facility] Comment on above: Order Comment: No: D o not add to previous draw Performed By: #### 5 0608 #### [facility] [address] [place] [address], [facility] MCV (RBC) [Entitic vol] 92.3 fL Normal 82.0-98.[address] [facility] Comment on above: Order Comment: No: D o not add to previous draw Performed By: #### 5 0608 #### [facility] [address] [place] [address], [facility] Nucleated RBC/100 WBC (Bld) [Ratio] 0 % Normal 0-[address] [facility] Comment on above: Order Comment: No: D o not add to previous draw Performed By: #### 5 0608 #### [facility] [address] [facility] [place] [address], [facility] PLAT CNT 165 10*3/uL Normal 150-400 [facility] Comment on above: Order Comment: No: D o not add to previous draw Performed By: #### 5 0608 #### [facility] [address] [facility] [place] [address], [facility] RBC (Bld) [#/Vol] 4.17 10*6/uL Low 4.20-5.70 [facility] Comment on above: Order Comment: No: D o not add to previous draw Performed By: #### 5 0608 #### [facility] [address] [place] [address], [facility] WBC (Bld) [#/Vol] 8.33 10*3/uL Normal 4.00-10.60 [facility] Comment on above: Order Comment: No: D o not add to previous draw Performed By: #### 5 0608 #### [facility] [address] [place] [address], [facility] CREATININE BLOODon 2 Creatinine [Mass/Vol] 0.82 mg/dL Normal 0.70-1.[address] [facility] Comment on above: Order Comment: No: D o not add to previous draw Performed By: #### 2 5656 #### [facility] [address] GFR/1.73 sq M.predicted among non-blacks MDRD (S/P/Bld) [Vol rate/Area] mL/min/{1.73_m2} Normal >[address] [facility] Comment on above: Order Comment: No: D o not add to previous draw Result Comment: [facility]'s estimated glomerular filtration rate (eGFR) will [...] individuals. Performed By: #### 2 5656 #### [facility] [address] [facility]. [address] Cardiovascular Lab Reporton 12-29-2021 Cardiovascular Lab Report [facility] Patient Name: [facility]a [facility] D MR #: [id number] Department of Physician: Adeline Carlos M.D. Division of Service Date: 12/28/2021 Cardiology Birthdate: 1935 Adult Cardiovascular Room #: 3AB [id number] Services [facility] [address] [address] Cardiovascular Laboratory Report FINAL IMPRESSIONS: 1. 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 Sharif in the [place] office in the next 2-4 weeks. 7. Follow up with Dr. Melvin as scheduled. PROCEDURES: Ultrasound-guided access to the right common femoral artery, limited femoral angiography, bilateral selective coronary angiography, angiography of internal mammary artery graft, angiography of the saphenous vein graft, placement of a 6-Malian MynxGrip closure device. METHODS: After risks, benefits, [...] was performed. This was upsized to a 6-Malian 11 cm sheath. Bilateral selective coronary angiography [...] the procedure. All catheters were removed. A 6-Malian MynxGrip closure device was deployed per protocol [...] marginals. Distal filling is seen into the [place] obtuse marginal via saphenous vein graft. Just [...] patent (more content not included)... Normal [facility] TROPONIN-Ion 12-28-2021 Troponin I.cardiac [Mass/Vol] 0.09 ng/mL High 0.00-0.04 [facility] Comment on above: Order Comment: No: D o not add to previous draw Result Comment: REFE RENCE RANGES: 0.00 - 0.04 ng/ml NORMAL 0.05 - 0.50 ng/ml INDETERMINATE > 0.50 ng/ml CONSISTENT WITH AN M.I. Performed By: #### 3 [id number] #### [facility] [address] [place] [id number], [facility] CBC AUTO DIFFon 12-26-2021 BASO # 0.0 103/ul Normal 0.0-0.1 [facility] Comment on above: Performed By: #### C BC #### [facility] [address] [address] [address] Gricel Busch Basophils/100 WBC (Bld) 0.6 % Normal 0.2-2.0 [facility] Comment on above: Performed By: #### C BC #### [facility] [address] [place] [address] Dr. Gricel Busch EO # 0.1 103/ul Normal 0.0-0.7 [facility] Comment on above: Performed By: #### C BC #### [facility] [address] [place] [address] Dr. Gricel Busch Eosinophils/100 WBC (Bld) 1.8 % Normal 0.9-7.0 [facility] Comment on above: Performed By: #### C BC #### [facility] [address] [place] [address] Dr. Gricel Busch Erythrocyte distribution width (RBC) [Ratio] 13.1 % Normal 11.0-15.0 [facility] Comment on above: Performed By: #### C BC #### [facility] [address] [place] [address] Dr. Gricel Busch Hematocrit (Bld) [Volume fraction] 42.4 % Normal 42.0-54.0 [facility] Comment on above: Performed By: #### C BC #### [facility] [address] [place] [address] Dr. Gricel Busch Hemoglobin (Bld) [Mass/Vol] 13.9 g/dL Critically low 14.0-18.0 [facility] Comment on above: Performed By: #### C BC #### [facility] [address] [place] [address] Dr. Gricel Busch IG # 0.03 10e3/ul Normal 0.00-0.03 [facility] Comment on above: Performed By: #### C BC #### [facility] [address] [place] [address] Dr. Gricel Busch IG % 0.4 % Normal 0.0-0.5 [facility] Comment on above: Performed By: #### C BC #### [facility] [address] [address] [address] Gricel Busch LYMPH # 1.2 103/ul Normal 1.2-3.8 [facility] [facility] Comment on above: Performed By: #### C BC #### [facility] [address] [place] [address] Dr. Gricel Busch Lymphocytes/100 WBC (Bld) 16.9 % Critically low 20.5-60.0 [facility] Comment on above: Performed By: #### C BC #### [facility] [address] [place] [address] Dr. Gricel Busch MANUAL DIFF REQ NO Normal [facility] Comment on above: Performed By: #### C BC #### [facility] [address] [place] [address] Dr. Gricel Busch MCH (RBC) [Entitic mass] 31.3 pg Normal 25.9-34.0 [facility] Comment on above: Performed By: #### C BC #### [facility] [address] [place] [address] Dr. Gricel Busch MCHC (RBC) [Mass/Vol] 32.8 g/dL Normal 29.9-35.2 [facility] Comment on above: Performed By: #### C BC #### [facility] [address] [place] [address] Dr. Gricel Busch MCV (RBC) [Entitic vol] 95.5 fL Critically high 80.0-94.0 [facility] Comment on above: Performed By: #### C BC #### [facility] [address] [place] [address] Dr. Gricel Busch MONO # 0.8 103/ul Normal 0.3-0.8 [facility] Comment on above: Performed By: #### C BC #### [facility] [address] [place] [address] Dr. Gricel Busch Monocytes/100 WBC (Bld) 10.9 % Normal 1.7-12.0 [facility] Comment on above: Performed By: #### C BC #### [facility] [address] [place] [address] Dr. Gricel Busch NEUT # 4.9 103/ul Normal 1.4-6.5 [facility] Comment on above: Performed By: #### C BC #### [facility] [address] [address] [address] Gricel Busch Neutrophils/100 WBC (Bld) 69.4 % Normal 43.0-75.0 [facility] Comment on above: Performed By: #### C BC #### [facility] [address] [address] [address] Gricel Busch Platelet mean volume (Bld) [Entitic vol] 9.6 fL Normal 9.5-13.5 [facility] Comment on above: Performed By: #### C BC #### [facility] [address] [place] [address] Dr. Gricel Busch PLT 191 103/ul Normal 150-450 [facility] Comment on above: Performed By: #### C BC #### [facility] [address] [place] [address] Dr. Gricel Busch RBC 4.44 106/ul Critically low 4.70-6.10 [facility] Comment on above: Performed By: #### C BC #### [facility] [address] [place] [address] Dr. Gricel Busch WBC 7.1 103/ul Normal 4.0-11.0 [facility] Comment on above: Performed By: #### C BC #### [facility] [address] [place] [address] Dr. Gricel Busch Cov[facility]-19 PCR [facility]on 12-12 SARS-CoV-2 (COVID-19) RNA NIR+probe Ql (Unsp spec) Not detected Normal NOT DETECTED [facility] Comment on above: Result Comment: This test is not yet approved or cleared by the [place] FDA. When there are no FDA-approved or cleared tests available, and other criteria are met, FDA can make tests available under an emergency access mechanism called an Emergency Use Authorization (EUA). The EUA for this test is supported by the [employer] of Health and Human Service's (HHS's) declaration [...] SARS-CoV-2. Performed By: #### C VDTB #### [facility] [address] [place] [address] Dr. Gricel Busch PROF CHEM 8 (BAS METB)on Anion gap [Moles/Vol] 9.6 mmol/L Normal [facility] Comment on above: Performed By: #### B MP #### [facility] [address] [place] [address] Dr. Gricel Busch Calcium [Mass/Vol] 9.8 mg/dL Normal 8.5-10.1 [facility] Comment on above: Performed By: #### B MP #### [facility] [address] [place] [address] Dr. Gricel Busch Chloride [Moles/Vol] 102 mmol/L Normal 98-107 [facility] Comment on above: Performed By: #### B MP #### [facility] [address] [place] [address] Dr. Gricel Busch CO2 [Moles/Vol] 28.1 mmol/L Normal 21.0-32.0 [facility] Comment on above: Performed By: #### B MP #### [facility] [address] [place] [address] Dr. Gricel Busch Creatinine [Mass/Vol] 0.88 mg/dL Normal 0.70-1.30 [facility] Comment on above: Performed By: #### B MP #### [facility] [address] [place] [address] Dr. Gricel Busch EGFR-AF IRANIAN >60 Normal >=60 [facility] Comment on above: Performed By: #### B MP #### [facility] [address] [address] [address] Gricel Busch EGFR-NON AF IRANIAN >60 Normal >=60 [facility] Comment on above: Performed By: #### B MP #### [facility] [address] [place], [place] [address] Dr. Gricel Busch Glucose [Mass/Vol] 101 mg/dL Normal 74-106 [facility] Comment on above: Performed By: #### B MP #### [facility] [address] [address] [address] Gricel Busch Potassium [Moles/Vol] 4.7 mmol/L Normal 3.5-5.1 [facility] Comment on above: Performed By: #### B MP #### [facility] [address] [address] [address] Gricel Busch Sodium [Moles/Vol] 135 mmol/L Critically low 136-145 [facility] Comment on above: Performed By: #### B MP #### [facility] [address] [address] [address] Gricel Busch Urea nitrogen [Mass/Vol] 12.0 mg/dL Normal 7.0-18.0 [facility] Comment on above: Performed By: #### B MP #### [facility] [address] [address] [address] Gricel Busch Urea nitrogen/Creatinin e [Mass ratio] 13.6 mg/mg Normal [facility] Comment on above: Performed By: #### B MP #### [facility] [address] [address] [address] Gricel Busch ECHOCARDIO M/2D COMPLETEon 0 12-21-2021 ECHOCARDIO M/2D COMPLETE Patient: JAMSHID NARANJOBRI Almaraz Exam Date: 12/21/2021 : 1935 Gender:M Ordering : DR TUCKER MELVIN . Admission #: [id number] Family : Order #: [id number] CLICK HERE TO VIEW EXAM ECHOCARDIOGRAM REPORT [...] Daniels M.D. on 12/21/2021 at 19:28 Normal [facility] STRESS/REST MULTIon 12-20 NE STRESS/REST MULTI Patient: KINGSLEY NARANJO Exam Date: 12/20/2021 : 1935 Gender:M Ordering : DR TUCKER MELVIN . Admission #: [id number] Family : Order #: [id number] CLICK HERE TO VIEW EXAM RADIOLOGY REPORT [...] Wheeler MD on 12/20/2021 at 14:18 Normal [facility] Vital Signs Date Time Vital Sign Value Performing Clinician Facility 12-25-2023 08:38-0400 Body temperature 97.88 [degF] REX FULLER [facility] 12-25-2023 08:38-0400 Diastolic blood pressure 82 mm[Hg] REX FULLER [facility] 12-25-2023 08:38-0400 Heart rate 58 /min REX FULLER [facility] 12-25-2023 08:38-0400 Respiratory rate 16 /min REX FULLER [facility] 12-25-2023 08:38-0400 Systolic blood pressure 150 mm[Hg] REX FULLER [facility] Encounters Encounter Date Encounter Type Care Provider Facility Start: 02-29-2024 ambulatory Orestes R MOBLEY Facili ty:[facility] Start: 02-21-2024 ambulatory Orestes MOBLEY Facili ty:CD:[id number] Start: 02-15-2024 End: 02-15-2024 ambulatory Orestes Rk MOBLEY Facility:[facility] Start: 02-07-2024 End: 02-07-2024 ambulatory Orestesmarisol Mobley Facility:[facility] Start: 02-07-2024 End: 02-07-2024 ambulatory Orestes R MOBLEY Facility:CD:[id number] Start: 01-28-2024 End: 01-28-2024 ambulatory [facility] Start: 01-28-2024 End: 01-28-2024 Encounter for preprocedural cardiovascular examination [facility] Start: 01-28-2024 Encounter for preprocedural cardiovascular examination [facility] Start: 01-15-2024 End: 01-15-2024 ambulatory Orestes MOBLEY Facility:[facility] Start: 01-15-2024 End: 01-15-2024 Patient encounter procedure Orestes MOBLEY [facility] Start: 12-31-2023 End: 12-31-2023 ambulatory Hamida J Galea Facility:[facility] Start: 12-31-2023 End: 12-31-2023 Patient encounter procedure Hamdia J Galea [facility] Start: 12-25-2023 End: 12-25-2023 ambulatory REX FULLER Facility:[facility] Start: 12-25-2023 End: 12-25-2023 Lab Drop off REX FULLER [facility] Start: 12-25-2023 End: 12-25-2023 ambulatory REX Renetta FULLER Facility:[facility] Start: 12-25-2023 End: 12-25-2023 Patient encounter procedure REX FULLER [facility] Start: 12-12-2023 ambulatory REX Renetta JONNY Facili ty:[facility] Start: 11-29-2023 ambulatory REXMARY ANN ROCKRY Facility :[facility] Start: 08-08-2023 End: 08-08-2023 ambulatory [facility] Start: 07-25-2023 End: 07-25-2023 ambulatory Not Available Start: 07-12-2023 End: 07-12-2023 ambulatory Not Available Start: 02-06-2023 End: 02-06-2023 ambulatory [facility] Start: 07-28-2022 End: 07-28-2022 ambulatory CK NIXON Facility:[facility] Start: 07-26-2022 End: 07-26-2022 ambulatory CK NIXON Facility:[facility] Start: 06-09-2022 End: 06-10-[address] TUCKER MELIVN . Facility:[facility] Start: 05-22-2022 End: 05-23-[address] TUCKER MELVIN . Facility:[facility] Start: 05-14-2022 End: 06-02-[address] TUCKER MELVIN . Facility:[facility] Start: 05-01-2022 End: 05-13-[address] TUCKER MELVIN . Facility:[facility] Start: 01-05-2022 End: 01-06-[address] TUCKER MELVIN . Facility:[facility] Start: 12-28-2021 End: 12-29-2021 ambulatory ADÁN SHARIF Facility:[facility] Start: 12-26-2021 End: 12-27-[address] ADÁN SHARIF Facility:[facility] Start: 12-21-2021 End: 12-22-[address] TUCKER MELVIN . Facility:[facility] Start: 12-20-2021 End: 12-21-[address] TUCKER MELVIN . Facility: Procedures Date Procedure Procedure Detail Performing Clinician Start: 06-30-2009 Colonoscopy REX SÁNCHEZ Cardiac catheterization JOSE NANDAOXANA JONNY Coronary angioplasty JOHNSON Beckman JONNY Repair of inguinal hernia JE KATIE FULLER Comment on above: left Immunizations Immunization Date Immunization Notes Care Provider Fa cili 03-26-2023 influenza virus vaccine, unspecified formulation REX FULLER [facility] 09-16-2021 SARS-CoV-2 mRNA (wvrntxxlrbi-ixol-joiaf se) vaccine REX JONNY [facility] Comment on above: Result Comment: 2023: [id number] 02-24-2021 SARS-CoV-2 (COVID-19 ) mRNA BNT-162k9 vax REX FULLER [facility] Comment on above: Result Comment: 2023: [id number] 02-18-2021 influenza virus vaccine, unspecified formulation REX FULLER [facility] 06-30-2020 SARS-CoV-2 (COVID-19 ) mRNA BNT-162b2 vax REX JONNY [facility] 06-07-2020 SARS-CoV-2 (COVID-19 ) mRNA BNT-162b2 vax REX JONNY [facility] 04-05-2020 influenza virus vaccine, unspecified formulation REX JONNY [facility] 03-07-2019 influenza virus vaccine, unspecified formulation REX JONNY [facility] 04-13-2017 influenza virus vaccine, unspecified formulation REX JONNY [facility] 02-12-2017 influenza virus vaccine, unspecified formulation REX JONNY [facility] 11-13-2016 pneumococcal polysaccharide vaccine, 23 valent REX JONNY [facility] 02-12-2013 influenza virus vaccine, unspecified formulation REX JONNY [facility] 03-11-2003 pneumococcal polysaccharide vaccine, 23 valent REX JONNY [facility] NEGATED: Highlighted row has not occurred!02-21-2019 influenza virus vaccine, unspecified formulation REX JONNY [facility] Comment on above: Result Comment: Will obtain from primary care physician Payers Date Payer Category Payer Self-pay 1960 Medicare [id number] 1960 Private Health Insurance [id number] 1935 Unknown [id number] 2.16.8 [id number] 1935 Unknown [id number] 2.16.84 0.1.389835.3.579.2.593 1934 Unknown [id number] 2.16.84 0.1.998626.3.579.2.593 1934 Unknown [id number] 2.16.84 0.1.139838.3.579.2.593 1934 Unknown [id number] 2.16.84 0.1.026719.3.579.2.593 1934 Unknown [id number] 2.16.84 0.1.732618.3.579.2.593 1934 Unknown [id number] 2.16.84 0.1.122372.3.579.2.593 1934 Unknown [id number] 2.16.84 0.1.255579.3.579.2.593 1934 Unknown [id number] 2.16.84 0.1.125424.3.579.2.593 1934 Unknown [id number] 2.16.84 0.1.093738.3.579.2.593 1934 Unknown [id number] 2.16.84 0.1.427524.3.579.2.593 1934 Unknown [id number] 2.16.84 0.1.514502.3.579.2.1259 1934 Unknown [id number] 2.16.84 0.1.565757.3.579.2.1259 1934 Unknown [id number] 2.16.8 40.1.390589.3.579.2.72 1934 Unknown [id number] 2.16.8 40.1.154219.3.579.2.72 1934 Unknown [id number] 2.16.8 40.1.701717.3.579.2.72 1934 Unknown [id number] 2.16.8 40.1.911008.3.579.2.72 1934 Unknown [id number] 2.16.8 40.1.232021.3.579.2.72 1934 Unknown [id number] 2.16.8 40.1.482364.3.579.2.72 1934 Unknown [id number] 2.16.8 40.1.307270.3.579.2.727 1934 Unknown [id number] 2.16.8 40.1.120753.3.579.2.727 1934 Unknown [id number] 2.16.8 40.1.317836.3.579.2.727 Unknown [id number] 2.16.8 40.1.831231.3.579.2.531 Social History Date Type Detail Facility Start: 12-25-2023 Tobacco smoking status Never s moked tobacco (finding) [facility] Tobacco smoking status Never [facility] Sex Assigned At Male [facility] Functional Status Date Assessment Result Facility 01-15-2024 Functional Status N/A [facility] 12-25-2023 Functional Status N/A [facility] Clinical Notes 12-30-2021 to 02-15-2024 Note Date & Type Note Facility 02-15-2024 Note Patient Education Oncology Bladder Cancer Bladder cancer is a condition where abnormal tissue (a tumor) grows in the bladder. The bladder is the organ that holds urine. Two tubes (ureters) carry urine from the kidneys to the bladder. The bladder wall is made of layers of tissue. Cancer that spreads through these layers of the bladder wall becomes more difficult to treat. What increases the risk? The following factors may make you more likely to develop this condition: ? Smoking. ? Working where there are risks (occupational exposures), such as working with rubber, leather, clothing fabric, dyes, chemicals, or paint. ? Being 55 years of age or older. ? Being male. ? Having long-term bladder inflammation. ? Having a history of cancer. This includes: ? A family history of bladder cancer. ? Having had bladder cancer before. ? Having had certain treatments for cancer before, such as: ? Medicines to kill cancer cells (chemotherapy). ? Strong X-ray beams or high-energy capsules to kill cancer cells and shrink tumors (radiation therapy). ? Having been exposed to arsenic. This is a poisonous substance. What are the signs or symptoms? Early symptoms of this condition include: ? Blood in your urine. ? Pain when urinating. ? Infections of your urinary system (urinary tract infections or UTIs) that happen often. ? Having to urinate sooner or more often than normal. Late symptoms of this condition include: ? Not being able to urinate. ? Pain on one side of your lower back. ? Loss of appetite. ? Weight loss. ? Tiredness (fatigue). ? Swelling in your feet. ? Bone pain. How is this diagnosed? This condition is diagnosed based on: ? Your medical history. ? A physical exam. ? Lab tests, such as urine tests. ? Imaging tests. ? Your symptoms. You may also have other tests or procedures, such as: ? A cystoscopy. This involves putting a narrow tube into your urethra. The urethra is the organ that carries urine from your bladder to the outside of your body. This procedure is done to view the lining of your bladder for tumors. ? A biopsy. This involves removing a tissue sample to look at under a microscope to check for cancer. Blood tests or imaging tests may be needed. These show how far into the bladder wall cancer has grown, and if cancer has spread to any other parts of your body. Tests may include: ? CT scan. ? MRI. ? Bone scan. ? X-ray. How is this treated? Your health care provider may recommend one or more types of treatment based on the stage of your cancer. The most common treatments are: ? Surgery to remove the cancer. Types of surgeries include: ? Removing a tumor on the inside wall of the bladder (transurethral resection). ? Removing the bladder (cystectomy). ? Radiation therapy. This is often combined with chemotherapy. ? Chemotherapy. ? Immunotherapy. This uses medicines to help your body's disease-fighting system (immune system) destroy cancer cells. Follow these instructions at home: ? Take nbce-auh-trotgxk and prescription medicines only as told by your health care provider. ? If you were prescribed an antibiotic medicine, take it as told by your health care provider. Do not stop using the antibiotic even if you start to feel better. ? Eat a healthy diet. Some treatments might affect your appetite. ? Do not use any products that contain nicotine or tobacco. These products include cigarettes, chewing tobacco, and vaping devices, such as e-cigarettes. If you need help quitting, ask your health care provider. ? Consider joining a support group. This may help you learn to deal with the stress of having bladder cancer. ? Tell your cancer care team if you develop side effects. Your team may be able to recommend ways to get relief. ? Keep all follow-up visits. This is important. Where to find more information ? [place] [employer] (ACS): cancer.org ? National Cancer [employer] (NCI): cancer.gov Contact a health care provider if: ? You have symptoms of a UTI. These include: ? Fever. ? Chills. ? Weakness. ? Muscle aches. ? Pain in your abdomen. ? Urge to urinate that is stronger and happens more often than normal. ? Burning in the bladder or urethra when you urinate. Get help right away if: ? There is blood in your urine. ? You cannot urinate. ? You have severe pain or other symptoms that do not go away. Summary ? Bladder cancer is a condition where tumors grow in the bladder. ? Diagnosis is based on your medical history, a physical exam, lab tests, imaging tests, and your symptoms. ? Your health care provider may recommend one or more types of treatment based on the stage of your cancer. ? Consider joining a support group. This may help you learn to deal with the stress of having bladder cancer. This information is not intended to replace advice given to you by your health care provider. Make sure you discuss any q (more content not included)... [facility] 01-28-2024 Note Remains stable witho ut concerning symptoms [facility] 01-28-2024 Note Lipid abnormalities are well controlled Continue crestor [facility] 01-28-2024 Note Coronary artery dise ase is stable without any concerning symptoms Continue GDMT- ASA, coreg, crestor and imdur continue risk factor modifications- heart healthy diet, regular exercise as tolerated and continue all medications. [facility] 01-28-2024 Note Hypertension is well controlled currently. Continue coreg, norvasc, and imdur Renal function normal [facility] 01-28-2024 Note UTP CARDIOLOGY PROGR ESS [...] are negative. 08/08/[address] Sharif Chief Complaint: Patient here for 6 mo [...] FINAL IMPRESSIONS: 1. Severe stenoses in the [place] obtuse marginal branch of the left (more content not included)... [facility] 01-28-2024 Note Pt is here for a six month follow up. Pt denies sob, chest pain, palpatiations. Pt had pre surgery testing done. Review of Systems Cardiovascular: Negative for leg swelling (L>R). Musculoskeletal: Positive for back pain. All other systems reviewed and are negative. [facility] 01-28-2024 Note RCRI= 2 points Class III Risk 10.1 % 30-day risk of , MA, or cardiac arrest From a cardiac perspective pt may proceed with planned surgery/urological procedure, he is a moderate risk for a moderate to high risk procedure. Prefer Aspirin to not be held, but if absolutely necessary may hold 5-7 days. Please monitor hemodynamics carefully and prevent any major fluid shifts. [facility] 01-15-2024 Evaluation + Plan note Extrac ariadna from: Title:Urology Progress Note Author:Andrey MOBLEY MD Date:01/15/24 Impression and Plan Impression: #1. He has bladder tumors. These need to get resected. Plan: #1. He is getting scheduled for cystoscopy and TURBT under anesthesia. Future Appointments Appointment Date:02/15/2024 08:45:00 AM Scheduled Provider:Orestes MOBLEY MD Location:[facility] Appointment Type:URO Office Visit Future Scheduled Tests Laboratory* Urine Culture 12/31/23 [facility] 09-03-2024 Hospital Discharge instructions Patient Education 01/15/2024 [...] Up Care 12/31/2023 09:27:58 With:Orestes MOBLEY Address: [address] [place] [address] [place] [address]- Business (1) When: Unknown Comments:Office will call to schedule follow up [facility] 09-03-2024 NoteProgress Note-Physician Patient: KINGSLEY NARANJO Age: [...] list: All Problems Hypertension / SNOMED CT 7681676043 / Confirmed BPH with elevated PSA / SNOMED CT 322958248 / Confirmed Right inguinal hernia / SNOMED CT 516923108 / Confirmed Hypothyroidism / SNOMED CT 74016728 / Confirmed Arteriosclerotic heart disease (ASHD) / SNOMED CT 89406445 / Confirmed High cholesterol / SNOMED CT 05872810 / Confirmed Right groin pain / SNOMED CT 5990722357 / Confirmed 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 Ischemic heart disease (7263906901): Resolved. Family History: Bilateral primary ovarian cancer Mother Procedure history: Colonoscopy (649420088) on 06/30/2009 at 73 Years. Cardiac catheterization (69464810). Coronary angioplasty (15854429). Repair of inguinal hernia (90309615). Comments: 01/15/2019 15:25 EDT - Rogelio Jha [...] scheduled for cystoscopy and TURBT [facility] Comment: Electronically Signed By: MATEO DICK, Orestes Puente\Date and Time Signed: 01/15/24 11:18 EDT 01-15-2024 [...] if you have a fever over 100 degrees.[facility] 12-25-2023 Evaluation + Plan note Diagnostic Tests Pending * Creatinine 12/25/23 [facility] 08-13-2024 Evaluation + Plan note Diagnostic Tests Pending * Urine Cytology ([facility]) 12/25/23 [facility] 08-13-2024 Hospital Discharge instructions Patient Education 12/25/2023 [...] including vitamins, herbs, eye drops, creams, and hgdo-rtv-irsmbnz medicines. Any problems you or family members [...] provider tells you to take them. Taking nohw-gzd-pbfliyz medicines, vitamins, herbs, and supplements. Tests You [...] Follow these instructions at home: Medicines Take txev-tvu-yxjmubc and prescription medicines only as told by [...] provider. Document Revised: 01/11/2022 Document Reviewed: 12/10/2020 el? Patient Education 2022 [employer]. 12/25/2023 09:15:16 Hematuria, Adult Hematuria, Adult Hematuria [...] Follow these instructions at home: Medicines Take xyns-lif-vcapcud and prescription medicines only as told by [...] or the blood stops without treatment. Take juvg-jge-mrlwbep and prescription medicines only as told by your health care provider. Drink enough fluid to keep your urine pale yellow. This information is not intended to replace advice given to you by your health care provider. Make sure you discuss any questions you have with your health care provider. Document Revised: 12/29/2020 Document Reviewed: 12/29/2020 el? Patient Education 2022 [employer]. Follow Up Care 12/06/2023 14:27:33 With:JONNY BATEMAN, REX Jackson, URL Address: [facility] [place] [address] [phone] When: Unknown [facility] 08-13-2024 NotePatient Education Urology Cystoscopy [...] including vitamins, herbs, eye drops, creams, and opbi-xdg-rjepmrv medicines. ? Any problems you or family [...] tells you to take them. ? Taking xvjc-axz-daviodr medicines, vitamins, herbs, and supplements. Tests You [...] these instructions at home: Medicines ? Take vwdl-sgl-fmnccum and prescription medicines only as told by [...] your health care provider, (more content not included)...[facility] Chief Complaint: [...] FINAL IMPRESSIONS: 1. 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 Sharif in the [place] office in the next 2-4 weeks. 7. Follow up with Dr. Melvin as scheduled. PROCEDURES: Ultrasound-guided access to the right common femoral artery, limited femoral angiography, bilateral selective coronary angiography, angiography of internal mammary artery graft, angiography of the saphenous vein graft, placement of a 6-Malian MynxGrip closure device. Echocardiogram 12/2021: Global left ventricular systolic function is normal; EF 55 to 60%. Mild biatrial dilatation. Mild to moderate tricuspid regurgitati (more content not included)...[facility]09-26-2023 [facility] Cardiology Clinic Note Chief Complaint: Patient here for 6 mo follow up CAD, hypertension, and hyperlipidemia. [facility] labs [facility] the [facility] in September, and his PCP at the [facility] switched his statin to Crestor. He and [...] FINAL IMPRESSIONS: 1. 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 Sharif in the [place] office in the next 2-4 weeks. 7. Follow up with Dr. Melvin as scheduled. PROCEDURES: Ultrasound-guided access to the right common femoral artery, limited femoral angiography, bilateral selective coronary angiography, angiography of internal mammary artery graft, angiography of the saphenous vein graft, placement of a 6-Malian MynxGrip closure device. Labs 09/18/2022: Total cholesterol 119, LDL 63, (more content not included)...[facility]01-10-2023 NotePROCEDURE: XR LSPINE MIN 4 VIEWS [...] Electronically authenticated by: MACY MICHAEL Date: 2022-05-23 08:14[facility]01-10-2023 NotePROCEDURE: XR HIP LT 2 3V [...] Electronically authenticated by: MACY MICHAEL Date: 2022-05-23 08:09[facility]08-19-2022 NoteMR#: [id number] [facility] Pt. Name: Kingsley Naranjo Admitted: 12/28/2021 [...] as bypass graft angiography. Coronary angiogram showed [place] arteries left main is calcified but patent. [...] additional documentation from me. Date Dict: 12/29/2021/12:08 P/Peterson Jensen MD Date Trans: 12/30/2021 09:11 A/jeanne [id number] cc: Tucker Melvin M.D. [address], [facility] [id number] note Future Appointments Appointment Date:01/08/2024 08:30:00 AM Scheduled Provider: Location:[facility] Appointment Type:Urology CALL PAT FT Appointment Date:01/15/2024 10:45:00 AM Scheduled Provider: Location:[facility] Appointment Type:Urology FT Future Scheduled Tests Laboratory* Urine Culture 12/31/23 [facility] Hospital course Narrative No data available for this section [facility] Hospital Discharge instructions No data available for this section [facility] Progress note No data available for this section [facility] Summary Purpose Family History [...] and content) DATE CREATED AUTHOR 01/08/2022 [facility] DATE CREATED AUTHOR AUTHOR'S ORGANIZ ATION 08/06/2022 [facility] pital DATE CREATED AUTHOR AUTHOR'S ORGANIZ ATION [facility]2023 [facility] DATE CREATED AUTHOR AUTHOR'S ORGANIZ ATION 12/31/2023 [facility] DATE CREATED AUTHOR AUTHOR'S ORGANIZ ATION 01/28/2024 [facility] DATE CREATED AUTHOR AUTHOR'S ORGANIZ ATION 02/12/2024 [facility] DATE CREATED AUTHOR AUTHOR'S ORGANIZ ATION 02/17/2024 [facility] Patient Care team informatio n (unrecognized section and content) Personnel Name: Tucker Melvin MD Address: Address: [address] [place] [address] Personnel Name: Tucker Melvin MD Address: Address: [address] [place] [address] Personnel Name: Tucker Melvin MD Address: Address: [address] [place] [address] Personnel Name: Tucker Melvin MD Address: Address: [address] [place] [address] FOR RECORDS PERTAINING TO PATIENTS WHO ARE [...] BE BASED ON THE PRIMARY CLINICAL RECORDS. [facility]. provides no warranty or guarantee of the accuracy or completeness of information in this document.
[2024-02-19] MEDS: ACETAMINOPHEN 325 MG TABLET 650 MG PO (01:15)
[2024-02-19] MEDS: PHENAZOPYRIDINE 100 MG TABLET 200 MG PO (01:18)
--- NOTE | 2024-02-19 01:23 | ED_ITS ---
HPI - Male Genitourinary General Chief complaint: Urogenital-Male Stated complaint: URINARY ISSUES Time Seen by Provider: 02/19/24 00:40 Source: patient Mode of arrival: walk-in Limitations: no limitations History of Present Illness HPI Narrative: This 88-year-old male presents for evaluation of urinary frequency, urgency and dysuria as well as retention. He was recently evaluated by Dr. Mobley and had a bladder tumor resected. His symptoms started yesterday and he was seen at Dr. Mobley office and diagnosed with a urinary tract infection and started on Keflex twice daily. He has not had any passage of blood clots or hematuria. He denies any abdominal pain. He has chronic back pain is unchanged. He denies any fevers or chills. He has no nausea or vomiting. He is able to urinate but states he does not feel that he is emptying his bladder. Related Data Home Medications ?Medication ?Instructions ?Recorded ?Confirmed amlodipine 2.5 mg tablet 2.5 mg PO DAILY 01/24/24 02/07/24 aspirin 81 mg tablet,delayed 81 mg PO DAILY 01/24/24 02/07/24 release (Adult Aspirin Regimen) carvedilol 3.125 mg tablet 3.125 mg PO BID 01/24/24 02/07/24 diclofenac sodium 50 mg 50 mg PO Q12H 01/24/24 02/07/24 tablet,delayed release isosorbide mononitrate 30 mg 15 mg PO DAILY 01/24/24 02/07/24 tablet,extended release 24 hr levothyroxine 137 mcg capsule 68.5 mcg PO DAILY 01/24/24 02/07/24 rosuvastatin 20 mg sprinkle capsule 20 mg PO DAILY 01/24/24 02/07/24 tamsulosin 0.4 mg capsule (Flomax) 0.4 mg PO DAILY 01/24/24 02/07/24 Previous Rx's ?Medication ?Instructions ?Recorded cephalexin 250 mg capsule 250 mg PO BID 7 days #14 caps 02/07/24 Allergies Allergy/AdvReac Type Severity Reaction Status Date / Time No Known Drug Allergies Allergy Verified 02/19/24 00:47 Review of Systems ROS Status of ROS 10 or more systems reviewed and unremark able except as noted in history and below [facility] Medical History (Updated 02/19/24 @ 05:01 by Kylah Wong MD) Right bundle branch block ?I45.10 - Unspecified right bundle-branch block (ICD-10) BPH with obstruction/lower urinary tract symptoms ?N40.1 - Benign prostatic hyperplasia with lower urinary tract symptoms (ICD- 10) ?N13.8 - Other obstructive and reflux uropathy (ICD-10) BPH with elevated PSA ?N40.0 - Benign prostatic hyperplasia without lower urinary tract symptoms (ICD-10) ?R97.20 - Elevated prostate specific antigen [PSA] (ICD-10) Hematuria ?R31.9 - Hematuria, unspecified (ICD-10) Urinary tract infection ?N39.0 - Urinary tract infection, site not specified (ICD-10) Bladder tumor ?D49.4 - Neoplasm of unspecified behavior of bladder (ICD-10) Hearing loss ?H91.90 - Unspecified hearing loss, unspecified ear (ICD-10) Back pain ?M54.9 - Dorsalgia, unspecified (ICD-10) Arthritis ?M19.90 - Unspecified osteoarthritis, unspecified site (ICD-10) High cholesterol ?E78.00 - Pure hypercholesterolemia, unspecified (ICD-10) Hypertension ?I10 - Essential (primary) hypertension (ICD-10) Coronary artery disease ?I25.10 - Atherosclerotic heart disease of crow coronary artery without angina pectoris (ICD-10) Hypothyroidism ?E03.9 - Hypothyroidism, unspecified (ICD-10) Surgical History (Updated 01/24/24 @ 08:36 by Monika Ha NP) Hx of prostate biopsy ?Z98.890 - Other specified postprocedural states (ICD-10) History of heart artery stent ?Z95.5 - Presence of coronary angioplasty implant and graft (ICD-10) 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 - Presence of aortocoronary bypass graft (ICD-10) History of hernia repair ?Z98.890 - Other specified postprocedural states (ICD-10) ?Z87.19 - Personal history of other diseases of the digestive system (ICD-10) History of colonoscopy ?Z98.890 - Other specified postprocedural states (ICD-10) Family History (Updated 01/24/24 @ 08:36 by Monika Ha NP) Other Family history of heart disease Family history of ovarian cancer Social History (Updated 01/24/24 @ 08:26 by Monika Ha NP) Within the past year, how often did you have a drink containing alcohol: never Score interpretation: A score less than 4 is consistent with normal alcohol consumption. Smoking status: Never smoker Non-prescribed substance use: denies use Highest level of school completed/degree received: high school graduate Little interest or pleasure in doing things: not at all Feeling down, depressed, or hopeless: not at all Exam Narrative Exam Narrative: Vital signs and Nursing Notes reviewed: Is afebrile with a normal pulse, blood pressure is elevated at 183/92, he is not hypoxic with pulse ox of 98% on room air General: Awake, alert, oriented, nontoxic elderly gentleman no acute distress, lying comfortably on the stretcher HEENT: Normocephalic atraumatic, mucous membranes are moist and pink, eyes are clear, normal conjunctiva, vision is grossly intact Chest: Lungs are clear to auscultation with good air entry, there is no wheezing rhonchi or rales appreciated no accessory muscle use, patient is speaking in complete sentences-no chest wall tenderness to palpation CVS: Regular rate and rhythm S1-S2, no murmurs rubs or gallops, pulses are brisk and equal bilaterally ABD: Soft, nondistended, tenderness over the urinary bladder without rebound guarding or rigidity, no pulsatile masses appreciated : Approximately 300 cc of retained urine in the urinary bladder with bladder scanning Extremities: Moving all extremities, no lower extremity tenderness, mild edema to the left lower extremity, chronic in nature, patient states he had veins harvested for bypass surgery in this leg in the Skin: Normal in appearance without rash,pallor, petechiae or purpura Neuro: No focal deficits Constitutional Vital Signs, click to edit/add: Last Vital Signs Temp 98.2 F 02/19/24 03:04 Pulse 62 02/19/24 04:42 Resp 18 02/19/24 04:42 BP 190/97 H 02/19/24 04:42 Pulse Ox 98 02/19/24 04:42 O2 Del Method Room Air 02/19/24 00:39 Course Vital Signs Vital signs: Vital Signs Temperature 98.6 F 02/19/24 00:39 Pulse Rate 71 02/19/24 00:39 Respiratory Rate 18 02/19/24 00:39 Blood Pressure 183/92 H 02/19/24 00:39 Pulse Oximetry 98 02/19/24 00:39 Oxygen Delivery Method Room Air 02/19/24 00:39 Temperature 98.2 F 02/19/24 03:04 Pulse Rate 62 02/19/24 04:42 Respiratory Rate 18 02/19/24 04:42 Blood Pressure 190/97 H 02/19/24 04:42 Pulse Oximetry 98 02/19/24 04:42 Oxygen Delivery Method Room Air 02/19/24 00:39 MDM - Male Genitourinary MDM Narrative Medical decision making narrative: This 88-year-old male who recently had a bladder tumor resected by Dr. Mobley presents for evaluation of urinary frequency urgency and dysuria. He was seen at Dr. Mobley office yesterday and started on Keflex for a UTI. He has had 2 doses of keflex prior to arrival. He presents for evaluation of ongoing urinary symptoms. He was noted to have 337ml give or take in his bladder on a bladder scan. I offered him a straight cath or Howe catheter placement or Pyridium to help relieve his bladder spasm. He opted for and was given a Pyridium and Tylenol. Since that time has been able to urinate and appears more comfortable. Urine is positive for small amount of blood and white blood cells with trace bacteria but negative for nitrites. He is not having any abdominal pain or back pain. He does not have a fever. His blood pressure was noted to be elevated arrival. He has urinated several times and his dysuria appears to be improving. After period of time the patient's urine became orange but he was still complaining of discomfort and fullness in his bladder and a repeat bladder scan was ordered that shows greater than 400 cc in his bladder at this time. He was agreeable to a Howe catheter and a three-way Howe catheter was placed. His bladder drained clear orange urine and his discomfort resolved and he wishes to be discharged home. He has not had any blood or blood clots obstructing the drainage from the catheter and CBI was not started. The patient has had Howe catheters in the past and feels comfortable being discharged home with a Howe catheter. He was encouraged to call Dr. Mobley office later today for further evaluation and recommendation for his urinary retention and ongoing urologic issues. He has Keflex at home that he will continue to take for the UTI. Lab Data Labs: Lab Results 10/08/24 Range/Units 01:20 Urine Color Lt. yellow (YELLOW) Urine Clarity Clear (CLEAR) Urine pH 6.0 (5.0-9.0) Ur Specific [place] 1.010 (1.005-1.025) Urine Protein Negative (NEG/TRACE) mg/dL Urine Glucose (UA) Negative (NEGATIVE) mg/dL Urine Ketones Negative (NEGATIVE) mg/dL Urine Occult Blood Moderate A (NEGATIVE) Urine Nitrite Negative (NEGATIVE) Urine Bilirubin Negative (NEGATIVE) Urine Urobilinogen 0.2 (0.2-1.0) EU/dL Ur Leukocyte Esterase Small A (NEGATIVE) Urine RBC 2-5 A (0-2) #/HPF Urine WBC 5-10 A (NONE SEEN) #/HPF Ur Squamous Epith Cells None seen (NONE/RARE) #/LPF Urine Crystals None seen (None Seen) #/HPF Urine Bacteria Trace A (NONE SEEN) #/HPF Urine Casts None seen (NONE SEEN) #/LPF Urine Mucus None seen (NONE SEEN) Ur Culture Indicated? Yes Discharge Plan Discharge Chief Complaint: Urogenital-Male Clinical Impression: Acute urinary retention Patient Disposition: Home, Self-Care Time of Disposition Decision: 04:59 Condition: Good Prescriptions / Home Meds: No Action diclofenac sodium 50 mg tablet,delayed release (DR/EC) 50 mg PO Q12H isosorbide mononitrate 30 mg tablet extended release 24 hr 15 mg PO DAILY rosuvastatin 20 mg capsule, sprinkle 20 mg PO DAILY levothyroxine 137 mcg capsule 68.5 mcg PO DAILY amlodipine 2.5 mg tablet 2.5 mg PO DAILY tamsulosin [Flomax] 0.4 mg capsule 0.4 mg PO DAILY aspirin [Adult Aspirin Regimen] 81 mg tablet,delayed release (DR/EC) 81 mg PO DAILY carvedilol 3.125 mg tablet 3.125 mg PO BID Rx Instructions: must administer with a meal/food cephalexin 250 mg capsule 250 mg PO BID 7 Days Qty: 14 0RF Print Language: Bahraini Instructions: Urinary Retention in Men (ED), Howe Catheter Placement and Care (ED) Referrals: Tucker Melvin MD [Primary Care Provider] - 1 week Orestes Mobley MD [Physician] - As soon as possible
[2024-02-19 01:44] LABS: Bilirubin Urine NEGATIVE (NEGATIVE); Blood Urine MODERATE (NEGATIVE); Clarity Urine CLEAR (CLEAR); Color Urine LT. YELLOW (YELLOW); Glucose Urine UA NEGATIVE (NEGATIVE); Ketones Urine NEGATIVE (NEGATIVE); Leukocyte Esterase Urine SMALL (NEGATIVE); Nitrite Urine NEGATIVE (NEGATIVE); Protein Urine NEGATIVE (NEG/TRACE); Urobilinogen Urine 0.2 EU/dL (0.2-1.0)
[2024-02-19 01:57] LABS: Bacteria Urine TRACE #/HPF (NONE SEEN); Cast Seen? NONE SEEN #/LPF (NONE SEEN); Crystals Seen? None Seen #/HPF (None Seen); Mucus Urine NONE SEEN (NONE SEEN); Squamous Epithelial Cell Urine NONE SEEN #/LPF (NONE/RARE); Urine Culture Indicated YES
[2024-02-19 03:04] VITALS: BP 196/99; PULSE 60; TEMP 36.8; O2SAT 98
[2024-02-19] MEDS: LIDOCAINE 2% JELLY 10 ML UR (04:16)
[2024-02-19 04:42] VITALS: BP 190/97; PULSE 62; O2SAT 98
== END 2024-02-19 05:25 | disposition home or self-care (01) ==
PROVIDERS: Emergency Provider Emergency Medicine; PCP Family Medicine
DX: R33.9 Retention of urine, unspecified (principal)
CPT/HCPCS: 51702; 81001; 87086; 99284

== ENCOUNTER 2024-02-20 07:28 | Outpatient (OUT) | payer MEDICARE, OTHER, SELFPAY ==
--- OUTSIDE RECORDS SUMMARY | 2024-02-20 07:31 | XMS_ITS | CCD ---
Author Organization [facility] [employer] Care Team Providers Care Building Services Engineer Name Role Phone ELTAHAWY, EHAB A Attending Unavailable ELTAHAWSachi, EHAB A Admitting Unavailable JONAS MELVINLAS Referring Unavailable DOUGYTUCKER Primary Care Unavailable HOY [...] Consulting Unavailable Tucker Melvin Primary Care Physician [phone] JONNY, REX Jackson Attending Unavailable Meera, Tucker Referring Unavailable JONNY, REX Jackson Attending Unavailable Tucker Melvin Referring Unavailable JONNY, REX Jackson Admitting Unavailable JONNY, REX Jackson Attending Unavailable ELTAHAWY, ADÁN Attending Unavailable ELTAHAWY, ADÁN Attending Unavailable MEGAN, VINH Attending Unavailable Mobley, Orestes Attending Unavailable Mobley, Orestes Admitting Unavailable MOBLEY, Orestes Beckman Attending Unavailable MOBLEY, Orestes Beckman Attending Unavailable MOBLEY, Orestes Beckman Attending Unavailable Galea, Hamida Mayen Attending Unavailable MOBLEY, REYNALDO Attending Unavailable MOBLEY, Orestes Beckman Attending Unavailable MOBLEY, Orestes Beckman Referring Unavailable MOBLEY, Orestes Beckman Attending Unavailable MOBLEY, Orestes Beckman Admitting Unavailable MOBLEY, Orestes R Admitting Unavailable MOBLEY, Orestes R Attending Unavailable Allergies Allergy Classification Reported Allergen(s) Allergy Type Date of Onset Reaction(s) Facility (2 sources) No Known Medication Allergies; Translations: [No Known Medication Allergies] Propensity to adverse reactions (disorder) [facility] Repository Medications Current Medications Medication Drug Class(es) [...] # 2 tab(s), Refills(s) 0, Pharmacy: [facility]/pharmacy #[id number], 178, cm, 12/25/23 8:48:00 EDT, [...] disease (20 sources) Atherosclerotic heart disease of saxman coronary artery without angina pectoris; Translations: [Angina [...] te Episodic/Chronic Other aftercare (1 source) Other bed bug exterminator (current) drug therapy; Translations: [OTH LONGTERM CURRENT DRUG THERAPY] Onset: 12-27-2021 Episodic Results Test Name Value Interpretation Reference Range Facility Ambulatory Visit Summaryon 1 Ambulatory Visit Summary Ambulatory Visit Summary KINGSLEY NARANJO :1935 Visit Date:02/18/2024 Ambulatory Visit Instructions Your Diagnosis BPH with obstruction/lower urinary tract symptoms Urinary frequency Dysuria Your Care Team Attending Physician - MATEO DICK, REYNALDO Primary Care Physician - Tucker Melvin MD This Is Your Medications List amlodipine (amLODIPine 2.5 mg Tab) aspirin (aspirin 81 mg oral tablet) carvedilol (carvedilol 3.125 mg Tab) cephalexin (Keflex 250 mg Cap) cholecalciferol (cholecalciferol 2000 intl units oral capsule) cyanocobalamin (Vitamin B12) diclofenac (diclofenac sodium 50 mg Oral EC Tab) isosorbide mononitrate (isosorbide mononitrate 30 mg ER Tab) levothyroxine (levothyroxine 137 mcg (0.137 mg) Tab) nitroglycerin (Nitro 0.4 mg Tab) psyllium (Metamucil) rosuvastatin (rosuvastatin 20 mg Tab) tamsulosin (tamsulosin 0.4 mg Cap) Procedures Performed TURBT - Transurethral resection of bladder tumor (02/07/2024), Cystoscopy (01/15/2024), Colonoscopy (06/30/2009), Cardiac catheterization, Coronary angioplasty, Repair of inguinal hernia. What to do next Scheduled Follow-Up Appointments Sunday 11:00 AM EDT With: MATEO DICK, Orestes Beckman Where: [facility] [place] [facility] [phone]- Medications What How Much When Instructions Unchanged amlodipine (amLODIPine 2.5 mg Tab) 1 Tablets By Mouth Every day Unchanged aspirin (aspirin 81 mg oral tablet) By Mouth Every day Unchanged carvedilol (carvedilol 3.125 mg Tab) 2 Tablets By Mouth Every day Unchanged cephalexin (Keflex 250 mg Cap) 1 Capsules By Mouth 2 times a day Duration: 1 Weeks Unchanged cholecalciferol (cholecalciferol 2000 intl units oral capsule) 1 Capsules By Mouth Every day Unchanged cyanocobalamin (Vitamin B12) See instructions Unchanged diclofenac (diclofenac sodium 50 mg Oral EC Tab) 1 Tablets By Mouth 3 times a day Unchanged isosorbide mononitrate (isosorbide mononitrate 30 mg ER Tab) 1/2 tab By Mouth Once a day (in the morning) Unchanged levothyroxine (levothyroxine 137 mcg (0.137 mg) Tab) 1/2 tab(s) By Mouth Every day Unchanged nitroglycerin (Nitro 0.4 mg Tab) 1 Tablets Sublingual Every 5 minutes as needed for Chest pain Unchanged psyllium (Metamucil) By Mouth Unchanged rosuvastatin (rosuvastatin 20 mg Tab) 1 Tablets By Mouth Every day Unchanged tamsulosin (tamsulosin 0.4 mg Cap) 1 Capsules By Mouth Every day Allergies No Known Medication Allergies Problems Ongoing - Any problem that you are currently receiving treatment for. 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 director drug. Results reviewed with pt and his son in detail. Called and spoke with [facility] pathologist. Reviewed pathology slides and he confirmed [...] BPH w (more content not included)... Normal [facility] Comment on above: Result Comment: Elec tronically Signed By: MATEO DICK, Orestes Beckman\.br\Date and Time Signed: 02/15/24 09:23 EDT\.br\Electronically Co-Signed By: Kate Seth\.br\Date and Time Co-Signed: 02/15/24 09:16 EDT Bryce 02-07-2024 L Specimen: [id number] Received: 02/08/24 Status: GIL Luciano Num: [id number] Spec Type: Surgical Subm Dr: Orestes Mobley MD Tissues: A Urinary Bladder - biopsy (BLADDER TUMOR) Procedures: HE/2, Gross/Micro L4 Age/ Patient Sex Location Account Attending Physician Kingsley Naranjo 88/M LABEL [id number] Orestes Mobley MD SPEC NUM: [id number] RECD: 02/08/24 STATUS: GIL LUCIANO NUM: [id number] TANNER: 02/07/[address]: Orestes Mobley MD ENTERED: 02/08/24 [facility] DR: Isaiah Cleaning SPEC TYPE: Surgical DEPT: COLIN MENDOZA ENTERED BY: [id number] RECV BY: [id number] ORDERED: HE/2, Gross/Micro L4 ORDERED: HE/2, Gross/Micro L4 Pathological Diagnosis Urinary bladder tumor, TURBT -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 ---- Specimen: [id number] Received: 02/08/24 Status: GIL Luciano Num: [id number] Spec Type: Surgical Subm Dr: Orestes Mobley MD Tissues: A Urinary Bladder - biopsy (BLADDER TUMOR) Procedures: HE/2, Gross/Micro L4 ---- Patient: Kingsley Naranjo [id number] (Continued) ---- Specimen: [id number] Received: 02/08/24 (Continued) Signed (signature on file) Philomena Busch MD 02/11/24 1728 ---- Specimen: [id number] Received: 02/08/24 Status: GIL Luciano Num: [id number] Spec Type: Surgical Subm Dr: Orestes Mobley MD Tissues: A Urinary Bladder - biopsy (BLADDER TUMOR) Procedures: HE/2, Gross/Micro L4 ---- Patient: Kingsley Naranjo [id number] (Continued) ---- Specimen: [id number] Received: 02/08/24 (Continued) Microscopic Description Microscopic examinations are performed supporting the above interpretation CPT Codes 99002 ---- ---- Specimen: [id number] Received: 02/08/24-1511 Status: GIL Luciano Num: [id number] Spec Type: Surgical Subm Dr: Orestes Mobley MD Tissues: A Urinary Bladder - biopsy (BLADDER TUMOR) Procedures: HE/2, Gross/Micro L4 ---- Patient: Kingsley Naranjo [id number] (Continued) ---- Signed (signature on file) Philomena Busch MD 02/11/24 1728 Normal [facility] Office Visiton 01-28-2024 Follow-up visit [id number] Fernie Naranjo 1935 M Date Provider Department Center 01/28/2024 120-VINH GUZMAN [facility] [facility] No family history on file Level of Service:00945 MO OFFICE/OUTPATIENT ESTABLISHED MOD MDM 30 MIN Normal [facility] Main OR Intraoperative Recor don 01-15-2024 Main OR Intraoperative Record Main OR Intraoperative Record IntraOp Document Type FTURO Summary Primary Physician: Orestes MOBLEY MD Finalized Date/Time: 01/15/24 11:19:04 Pt. Name: KINGSLEY NARANJO./Sex: 1935 Male Med Rec #: [id number] Physician: Orestes MOBLEY MD Financial #: [id number] Pt. Type: O Room/Bed: / Admit/Disch: 01/15/24 [...] Deborah Rodríguez Role Performed Surgeon - Primary Clinical Dietician - Primary Scrub - Primary Time In 01/15/24 11:04:00 01/15/24 11:04:00 01/15/24 11:04:00 Time Out 01/15/24 11:16:00 01/15/24 11:16:00 01/15/24 11:16:00 Procedure CYSTOSCOPY LOCAL(.) CYSTOSCOPY LOCAL(.) CYSTOSCOPY LOCAL(.) Comments Last Modified By: Yasmin MARQUIS, Luanne Hoffman RN, Luanne Hoffman RN, Luanne Guardado 01/15/24 Shagufta Guardado 01/15/24 Shagufta Guaraddo 01/15/24 11:11:07 11:11:07 11:11:07 Entry 4 Case [...] Class 2 - Clean-Contaminated Last Modified By: Yasmin MARQUIS, Luanne Guardado 01/15/24 11:11:14 General Case Data FTURO Pre-Care [...] Position Verified Availability Equipment, Medication Time Out MATEO DICK, Orestes Beckman, Verified (If Participants Luanne Hoffman RN Applicable) Jw Tyler Laura C, MODESTO DICK, MIKAYLA Time Out Complete 01/15/24 11:07:00 Allergies [...] By: Luanne Hoffman RN 01/15/24 11:19 Normal [facility] Main OR Preoperative Recordo n 01-15-2024 Main OR Preoperative Record Main OR Preoperative Record Holding Area Document Type FTURO Summary Primary Physician: Orestes MOBLEY MD Finalized Date/Time: 01/15/24 10:31:41 Pt. Name: KINGSLEY NARANJOO.B./Sex: 1935 Male Med Rec #: [id number] Physician: Orestes MOBLEY MD Financial #: [id number] Pt. Type: O Room/Bed: / Admit/Disch: 01/15/24 [...] Complaints of Pain: No Skin Integrity Intact, Avella, Warm, & Dry Vitals - EU Blood Pressure 126/73 Pulse 80 bpm Respirations 18 br/min SPO2 Additional None Specimens Collected Last Modified By: Mari Estrella LPN 01/15/24 10:31:36 Finalized By: Mari Estrella LPN Document Signatures Signed By: Mari Estrella LPN 01/15/24 10:31 Normal [facility] Operative Reporton Operative Report Operative Report Patient: [...] for cystoscopy and TURBT under anesthesia.. Normal [facility] Comment on above: Result Comment: Elec tronically Signed By: Orestes MOBLEY MD\.br\Date and Time Signed: 01/15/24 11:16 EDT Urine Cytology ([facility])on 12-30-2023 Microscopic exam Cytology (U) [Interp] Diagnosis Info Invalid Interpretation Code [facility] Comment on above: Result Comment: A:Ur ine,Urine:Voided Interpretation - Atypical Urothelial Cells; Favor Reactive Process. Adequate cellularity for evaluation. MicroScopic Description - Adequacy - Adequate Gross Description Site ID:A color Yellow fixative Alcohol Specimen designated Urine received in alcohol preservative and labeled with the patient?s name, consists of 90ml clear yellow fluid. Electronically signed by : on: 12/30/2023 11:24:24 Performed By: #### 1 [id number] #### [facility] Laboratory [address] [place] [address] Ambulatory Visit Summaryon 0 12-25-2023 Ambulatory Visit [...] When: Where: [address] [place] [address] [id number] Medications What How Much When Instructions Unchanged [...] ? Un (more content not included)... Normal [facility] Ambulatory Visit Summary Ambulatory Visit Summary KINGSLEY [...] PA-C, URL When: Where: [address] [place] [address] [phone] Medications What How Much When Instructions Unchanged [...] ? Un (more content not included)... Normal [facility] Urine Cytology ([facility])on 0 12-25-2023 Method of Extraction Voided Normal [facility] Comment on above: Performed By: #### 1 [id number] #### [facility] Laboratory [address] Number of Jars 1 Invalid Interpretation Code [facility] Comment on above: Performed By: #### 1 [id number] #### [facility] Laboratory [address] Specimen Urine Normal [facility] Comment on above: Performed By: #### 1 [id number] #### [facility] Laboratory [address] Type of Service Technical Only Normal [facility] Comment on above: Performed By: #### 1 [id number] #### [facility] Laboratory [address] [place] [address] Urology Office/Clinic Noteon 12-25-2023 Urology Office/Clinic Note [...] Cystoscopy 10/01/15 by PRW. Had gross hematuria 04/20/24. PCP rx'd Cipro 09/03/23. Micro UA 09/03/23 [...] mass (N32.89: Other specified disorders of bladder) [facility] 11/27/23 [facility] - 3.6 cm bladder mass. Reviewed imaging results. Advised pt bladder masses can be misread on US and may act (more content not included)... Normal [facility] Comment on above: Result Comment: Elec tronically Signed By: REX FULLER PA-C\.br\Date and Time Signed: 12/25/23 09:32 EDT\.br\Electronically Co-Signed By: Hortencia Thomas\.br\Date and Time Co-Signed: 12/25/23 09:24 EDT Office Visiton 08-08-2023 Follow-up visit [id number] Fernie Naranjo 1935 M [facility] Provider Department Center 08/08[facility]20[facility] No family history on file Level of Service:62186 MO OFFICE/OUTPATIENT ESTABLISHED LOW MDM 20 MIN Normal [facility] Office Visiton 02-06-2023 Follow-up visit [id number] Fernie Naranjo 1935 Date Provider Department Center 02/06/2023 ADÁN CHING [facility] No family history on file Level of Service:57861 MO OFFICE/OUTPATIENT ESTABLISHED LOW MDM 20-29 MIN Normal [facility] OCC BLD IMMUNO SCREENon 07-12 OCCULT BLOOD Negative Normal NEGATIVE [facility] Comment on above: Performed By: #### O BSCRN #### [facility] [address] [place] [address] Dr. Gricel Busch MRI LSPINE WO CONon [...] by: GAY WHEELER Date: 2022-06-09 09:46 Normal [facility] CT TSPINE WO CONon 2 CT [...] by: MACY MICHAEL Date: 2022-01-05 16:34 Normal [facility] CBC COMPLETE BLOOD COUNTon 0 - Erythrocyte distribution width (RBC) [Ratio] 13.4 % Normal 11.5-15.0 [facility] Comment on above: Order Comment: No: D o not add to previous draw Performed By: #### 5 [id number] #### [facility] [address] [place] [address], [facility] Hematocrit (Bld) [Volume fraction] 38.5 % Low 39.0-50.0 [facility] Comment on above: Order Comment: No: D o not add to previous draw Performed By: #### 5 0608 #### [facility] [address] [place] [address], [facility] Hemoglobin (Bld) [Mass/Vol] 13.5 g/dL Normal 13.0-17.0 [facility] Comment on above: Order Comment: No: D o not add to previous draw Performed By: #### 5 0608 #### [facility] [address] [place] [address], [facility] MCH (RBC) [Entitic mass] 32.4 pg Normal 27.0-33.0 [facility] Comment on above: Order Comment: No: D o not add to previous draw Performed By: #### 5 0608 #### [facility] [address] [facility] [place] [address], [facility] MCHC (RBC) [Mass/Vol] 35.1 g/dL High 32.0-35.0 [facility] Comment on above: Order Comment: No: D o not add to previous draw Performed By: #### 5 0608 #### [facility] [address] [facility] [place] [address], [facility] MCV (RBC) [Entitic vol] 92.3 fL Normal 82.0-98.0 [facility] Comment on above: Order Comment: No: D o not add to previous draw Performed By: #### 5 0608 #### [facility] [address] [place] [address], [facility] Nucleated RBC/100 WBC (Bld) [Ratio] 0 % Normal 0-0 [facility] Comment on above: Order Comment: No: D o not add to previous draw Performed By: #### 5 0608 #### [facility] [address] [place] [address], [facility] PLAT CNT 165 10*3/uL Normal 150-400 [facility] Comment on above: Order Comment: No: D o not add to previous draw Performed By: #### 5 0608 #### [facility] [address] [place] [address], [facility] RBC (Bld) [#/Vol] 4.17 10*6/uL Low 4.20-5.70 [facility] Comment on above: Order Comment: No: D o not add to previous draw Performed By: #### 5 0608 #### [facility] [address] [place] [address], [facility] WBC (Bld) [#/Vol] 8.33 10*3/uL Normal 4.00-10.60 [facility] Comment on above: Order Comment: No: D o not add to previous draw Performed By: #### 5 0608 #### [facility] [address] [place] [address], [facility] CREATININE BLOODon 2 Creatinine [Mass/Vol] 0.82 mg/dL Normal 0.70-1.30 [facility] Comment on above: Order Comment: No: D o not add to previous draw Performed By: #### 2 5656 #### [facility] [address] [facility] GFR/1.73 sq M.predicted among non-blacks MDRD (S/P/Bld) [Vol rate/Area] mL/min/{1.73_m2} Normal >60 [facility] Comment on above: Order Comment: No: D o not add to previous draw Result Comment: [facility]'s estimated glomerular filtration rate (eGFR) [...] individuals. Performed By: #### 2 [id number] #### [facility] [address] [place] [address], [facility] Cardiovascular Lab Reporton 12-29-2021 Cardiovascular Lab Report [facility] Patient Name: [facility] D MR #: [id number] Department of Physician: Adeline Carlos M.D. Division of Service Date: 12/28/2021 Cardiology Birthdate: 1935 Adult Cardiovascular Room #: 3AB [id number] [facility] [address] [facility] [address] [place] [address] Cardiovascular Laboratory Report FINAL IMPRESSIONS: 1. 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 Pittman in the [place] office in the next 2-4 weeks. 7. Follow up with Dr. Melvin as scheduled. PROCEDURES: Ultrasound-guided access to the right common femoral artery, limited femoral angiography, bilateral selective coronary angiography, angiography of internal mammary artery graft, angiography of the saphenous vein graft, placement of a 6-Estonian MynxGrip closure device. METHODS: After risks, benefits, [...] was performed. This was upsized to a 6-Estonian 11 cm sheath. Bilateral selective coronary angiography [...] the procedure. All catheters were removed. A 6-Estonian MynxGrip closure device was deployed per protocol [...] marginals. Distal filling is seen into the saxman obtuse marginal via saphenous vein graft. Just [...] patent (more content not included)... Normal [facility] TROPONIN-Ion 12-28-2021 Troponin I.cardiac [Mass/Vol] 0.09 ng/mL High 0.00-0.04 [facility] Comment on above: Order Comment: No: D o not add to previous draw Result Comment: REFE RENCE RANGES: 0.00 - 0.04 ng/ml NORMAL 0.05 - 0.50 ng/ml INDETERMINATE > 0.50 ng/ml CONSISTENT WITH AN M.I. Performed By: #### 3 [id number] #### [facility] [address] CBC AUTO DIFFon 12-26-2021 BASO # 0.0 103/ul Normal 0.0-0.1 [facility] Comment on above: Performed By: #### C BC #### [facility] [address] [place] [address] [address] Gricel Busch Basophils/100 WBC (Bld) 0.6 % Normal 0.2-2.0 [facility] Comment on above: Performed By: #### C BC #### [facility] [address] [place] [address] [address] Gricel Busch EO # 0.1 103/ul Normal 0.0-0.7 [facility] Comment on above: Performed By: #### C BC #### [facility] [address] [place] [address] [address] Gricel Busch Eosinophils/100 WBC (Bld) 1.8 % Normal 0.9-7.0 [facility] Comment on above: Performed By: #### C BC #### [facility] [address] [place] [address] Dr. Gricel Busch Erythrocyte distribution width (RBC) [Ratio] 13.1 % Normal 11.0-15.0 [facility] Comment on above: Performed By: #### C BC #### [facility] [address] [place] [address] Dr. Gricel Busch Hematocrit (Bld) [Volume fraction] 42.4 % Normal 42.0-54.0 [facility] Comment on above: Performed By: #### C BC #### [facility] [address] [place] [address] Dr. Gricel Busch Hemoglobin (Bld) [Mass/Vol] 13.9 g/dL Critically low 14.0-18.0 [facility] Comment on above: Performed By: #### C BC #### [facility] [address] [place] [address] Dr. Gricel Busch IG # 0.03 10e3/ul Normal 0.00-0.03 [facility] Comment on above: Performed By: #### C BC #### [facility] [address] [place] [address] Dr. Gricel Busch IG % 0.4 % Normal 0.0-0.5 [facility] Comment on above: Performed By: #### C BC #### [facility] [address] [place] [address] Dr. Gricel Busch LYMPH # 1.2 103/ul Normal 1.2-3.8 [facility] Comment on above: Performed By: #### C BC #### [facility] [address] [place] [address] Dr. Gricel Busch Lymphocytes/100 WBC (Bld) 16.9 % Critically low 20.5-60.0 [facility] Comment on above: Performed By: #### C BC #### [facility] [address] [place] [address] Dr. Gricel Busch MANUAL DIFF REQ NO Normal [facility] Comment on above: Performed By: #### C BC #### [facility] [address] [place] [address] Dr. Gricel Busch MCH (RBC) [Entitic mass] 31.3 pg Normal 25.9-34.0 [facility] Comment on above: Performed By: #### C BC #### [facility] [address] [place] [address] Dr. Gricel Busch MCHC (RBC) [Mass/Vol] 32.8 g/dL Normal 29.9-35.2 [facility] Comment on above: Performed By: #### C BC #### [facility] [address] [place] [address] Dr. Gricel Busch MCV (RBC) [Entitic vol] 95.5 fL Critically high 80.0-94.0 [facility] Comment on above: Performed By: #### C BC #### [facility] [address] [place] [address] Dr. Gricel Busch MONO # 0.8 103/ul Normal 0.3-0.8 [facility] Comment on above: Performed By: #### C BC #### [facility] [address] [place] [address] Dr. Gricel Busch Monocytes/100 WBC (Bld) 10.9 % Normal 1.7-12.0 [facility] Comment on above: Performed By: #### C BC #### [facility] [address] [place] [address] Dr. Gricel Busch NEUT # 4.9 103/ul Normal 1.4-6.5 [facility] Comment on above: Performed By: #### C BC #### [facility] [address] [place] [address] Dr. Gricel Busch Neutrophils/100 WBC (Bld) 69.4 % Normal 43.0-75.0 [facility] Comment on above: Performed By: #### C BC #### [facility] [address] [place] [address] Dr. Gricel Busch Platelet mean volume (Bld) [Entitic vol] 9.6 fL Normal 9.5-13.5 [facility] Comment on above: Performed By: #### C BC #### [facility] [address] [place] [address] Dr. Gricel Busch PLT 191 103/ul Normal 150-450 [facility] Comment on above: Performed By: #### C BC #### [facility] [address] [place] [address] [address] Gricel Busch RBC 4.44 106/ul Critically low 4.70-6.10 [facility] Comment on above: Performed By: #### C BC #### [facility] [address] [place] [id number] Gricel Busch WBC 7.1 103/ul Normal 4.0-11.0 [facility] Comment on above: Performed By: #### C BC #### [facility] [address] [address] [address] Gricel Busch Covid-19 PCR (CVDTB)on 12-12 SARS-CoV-2 (COVID-19) RNA NIR+probe Ql (Unsp spec) Not detected Normal NOT DETECTED [facility] Comment on above: Result Comment: This test is not yet approved or cleared by the [place] FDA. When there are no FDA-approved or cleared tests available, and other criteria are met, FDA can make tests available under an emergency access mechanism called an Emergency Use Authorization (EUA). The EUA for this test is supported by the Electron Microscopist of Health and Human Service's (HHS's) declaration [...] consistent with SARS-CoV-2. Performed By: #### C VDTBH #### [facility] [address] [address] [address] Gricel Busch PROF CHEM 8 (BAS METB)on Anion gap [Moles/Vol] 9.6 mmol/L Normal [facility] Comment on above: Performed By: #### B MP #### [facility] [address] [address] [address] Gricel Busch Calcium [Mass/Vol] 9.8 mg/dL Normal 8.5-10.1 [facility] Comment on above: Performed By: #### B MP #### [facility] [address] [address] [address] Gricel Busch Chloride [Moles/Vol] 102 mmol/L Normal 98-107 [facility] Comment on above: Performed By: #### B MP #### [facility] [address] [address] [address] Gricel Busch CO2 [Moles/Vol] 28.1 mmol/L Normal 21.0-32.0 [facility] Comment on above: Performed By: #### B MP #### [facility] [address] [address] [address] Gricel Busch Creatinine [Mass/Vol] 0.88 mg/dL Normal 0.70-1.30 [facility] Comment on above: Performed By: #### B MP #### [facility] [address] [address] [address] Gricel Busch EGFR-AF BURUNDIAN >60 Normal >=60 [facility] Comment on above: Performed By: #### B MP #### [facility] [address] [address] [address] Gricel Busch EGFR-NON AF BURUNDIAN >60 Normal >=60 [facility] Comment on above: Performed By: #### B MP #### [facility] [address] [address] [address] Gricel Busch Glucose [Mass/Vol] 101 mg/dL Normal 74-106 [facility] Comment on above: Performed By: #### B MP #### [facility] [address] [address] [address] Gricel Busch Potassium [Moles/Vol] 4.7 mmol/L Normal 3.5-5.1 [facility] Comment on above: Performed By: #### B MP #### [facility] [address], [place] [address] Dr. Gricel Busch Sodium [Moles/Vol] 135 mmol/L Critically low 136-145 Th e [facility] Comment on above: Performed By: #### B MP #### [facility] [address], [place] [address] Dr. Gricel Busch Urea nitrogen [Mass/Vol] 12.0 mg/dL Normal 7.0-18.0 [facility] Comment on above: Performed By: #### B MP #### [facility] [address] [place], [place] [address] Dr. Gricel Busch Urea nitrogen/Creatinin e [Mass ratio] 13.6 mg/mg Normal [facility] Comment on above: Performed By: #### B MP #### [facility] [address], [place] [address] Dr. Gricel Busch ECHOCARDIO M/2D COMPLETEon 0 12-21-2021 ECHOCARDIO M/2D COMPLETE Patient: KINGSLEY NARANJO Exam Date: 12/21/2021 : 1935 Gender:M Ordering : DR TUCKER MELVIN . Admission #: [id number] Family : Order #: [id number] CLICK HERE TO VIEW EXAM ECHOCARDIOGRAM REPORT [...] root, measuring 3.9 cm. Dictated by: Kenney Daniles M.D. on 12/21/2021 at 19:22 Approved by: Kenney Daniels M.D. on 12/21/2021 at 19:28 Normal [facility] STRESS/REST MULTIon 12-20 NM STRESS/REST MULTI Patient: DICKKINGSLEY Exam Date: 12/20/2021 : 1935 Gender:M Ordering : DR TUCKER MELVIN . Admission #: [id number] Family : Order #: [id number] CLICK HERE TO VIEW EXAM RADIOLOGY REPORT [...] Wheeler MD on 12/20/2021 at 14:18 Normal [facility] Vital Signs Date Time Vital Sign Value Performing Clinician Facility 12-25-2023 08:38-0400 Body temperature 97.88 [degF] REX ROCKRY [facility] 12-25-2023 08:38-0400 Diastolic blood pressure 82 mm[Hg] REX JONNY [facility] 12-25-2023 08:38-0400 Heart rate 58 /min REX JONNY [facility] 12-25-2023 08:38-0400 Respiratory rate 16 /min REX JONNY [facility] 12-25-2023 08:38-0400 Systolic blood pressure 150 mm[Hg] REX JONNY [facility] Encounters Encounter Date Encounter Type Care Provider Facility Start: 02-21-2024 [id number] Start: 02-18-2024 End: 02-18-2024 ambulatory Orestes MOBLEY [facility] Start: 02-15-2024 End: 02-15-2024 ambulatory Orestes MOBLEY Facility:[facility] Start: 02-07-2024 End: 02-07-2024 ambulatory Orestes Mobley Facility:[facility] Start: 02-07-2024 End: 02-07-2024 ambulatory Orestes MOBLEY Facility:CD:[id number] Start: 01-28-2024 End: 01-28-2024 ambulatory [facility] Start: 01-28-2024 End: 01-28-2024 Encounter for preprocedural cardiovascular examination [facility] Start: 01-28-2024 Encounter for preprocedural cardiovascular examination [facility] Start: 01-15-2024 End: 01-15-2024 ambulatory Orestes MOBLEY Facility:[facility] Start: 01-15-2024 End: 01-15-2024 Patient encounter procedure Orestes MOBLEY [facility] Start: 12-31-2023 End: 12-31-2023 ambulatory [facility] Sanz [facility] Start: 12-31-2023 End: 12-31-2023 Patient encounter procedure Hamida Faheem Galea [facility] Start: 12-25-2023 End: 12-25-2023 ambulatory REX E JONNY Facility:[facility] Start: 12-25-2023 End: 12-25-2023 Lab Drop off REX E JONNY [facility] Start: 12-25-2023 End: 12-25-2023 ambulatory REX E JONNY Facility:[facility] Start: 12-25-2023 End: 12-25-2023 Patient encounter procedure REX E JONNY [facility] [place] Start: 12-12-2023 ambulatory REX E JONNY Facili ty:[facility] Start: 11-29-2023 ambulatory REX JONNY Facility :[facility] Start: 08-08-2023 End: 08-08-2023 ambulatory EHAB [facility] Start: 07-25-2023 End: 07-25-2023 ambulatory Not Available Start: 07-12-2023 End: 07-12-2023 ambulatory Not Available Start: 02-06-2023 End: 02-06-2023 [facility] Start: 07-28-2022 End: 07-28-2022 ambulatory CK MENDOZAMER Facility:[facility] Start: 07-26-2022 End: 07-26-2022 ambulatory CK NIXON Facility:[facility] Start: 06-09-2022 End: 06-10-[address] TUCKER MELVIN . Facility:[facility] Start: 05-22-2022 End: 05-23-[address] TUCKER MELVIN . Facility:[facility] Start: 05-14-2022 End: 06-02-[address] TUCKER MELVIN . Facility:[facility] Start: 05-01-2022 End: 05-13-[address] TUCKER MELVIN . Facility:[facility] Start: 01-05-2022 End: 01-06-[address] TUCKER MELVIN . Facility:[facility] Start: 12-28-2021 End: 12-29-2021 ambulatory ADÁN PITTMAN Facility:[facility] Start: 12-26-2021 End: 12-27-[address] ADÁN PITTMAN Facility: Start: 12-21-2021 End: 12-22-[address] TUCKER MELVIN . Facility:[facility] Start: 12-20-2021 End: 12-21-[address] TUCKER MELVIN . Facility: Procedures Date Procedure Procedure Detail Performing Clinician Start: 06-30-2009 Colonoscopy REX SÁNCHEZ Cardiac catheterization JOSE FULLER Coronary angioplasty JOHNSON FULLER Repair of inguinal hernia TRUNG FULLER Comment on above: left Plan of Treatment Date Care Activity Detail Author Start: 02-29-2024 ambulatory Ambulatory Facility:[facility] Immunizations Immunization Date Immunization Notes Care Provider [facility] 03-26-2023 influenza virus vaccine, unspecified formulation REX FULLER [facility] 09-16-2021 SARS-CoV-2 mRNA (risqhlqukic-jykj-uwnew se) vaccine REX JONNY [facility] Comment on above: Result Comment: 2023: [id number] 02-24-2021 SARS-CoV-2 (COVID-19 ) mRNA BNT-162b2 vax REX JONNY [facility] Comment on above: Result Comment: 2023: [id number] 02-18-2021 influenza virus vaccine, unspecified formulation REX JONNY [facility] 06-30-2020 SARS-CoV-2 (COVID-19 ) mRNA BNT-162b2 vax REX JONNY [facility] 06-07-2020 SARS-CoV-2 (COVID-19 ) mRNA BNT-162w8 vax REX JONNY [facility] 04-05-2020 influenza virus vaccine, unspecified formulation REX JONNY [facility] 03-07-2019 influenza virus vaccine, unspecified formulation REX JONNY [facility] [place] 04-13-2017 influenza virus vaccine, unspecified formulation REX JONNY [facility] 02-12-2017 influenza virus vaccine, unspecified formulation REX JONNY [facility] 11-13-2016 pneumococcal polysaccharide vaccine, 23 valent REX JONNY [facility] 02-12-2013 influenza virus vaccine, unspecified formulation REX FULLER [facility] 03-11-2003 pneumococcal polysaccharide vaccine, 23 valent REX FULLER [facility] NEGATED: Highlighted row has not occurred!02-21-2019 influenza virus vaccine, unspecified formulation REX FULLER [facility] [place] Comment on above: Result Comment: Will obtain from primary care physician Payers Date Payer Category Payer Self-pay 1960 Medicare [id number] 1960 Private Health Insurance [id number] 1935 Unknown [id number] 2.16.8 40.1.546602.3.579.2.647 1934 Unknown [id number] 2.16.84 0.1.105418.3.579.2.593 1934 Unknown [id number] 2.16.84 0.1.034549.3.579.2.593 1934 Unknown [id number] 2.16.84 0.1.995648.3.579.2.593 1934 Unknown [id number] 2.16.84 0.1.182045.3.579.2.593 1934 Unknown [id number] 2.16.84 0.1.680513.3.579.2.593 1934 Unknown [id number] 2.16.84 0.1.501230.3.579.2.593 1934 Unknown [id number] 2.16.84 0.1.266194.3.579.2.593 1934 Unknown [id number] 2.16.84 0.1.344014.3.579.2.593 1934 Unknown [id number] 2.16.84 0.1.885836.3.579.2.593 1934 Unknown [id number] 2.16.84 0.1.237875.3.579.2.593 1934 Unknown [id number] 2.16.84 0.1.649281.3.579.2.1259 1934 Unknown [id number] 2.16.84 0.1.815582.3.579.2.1259 1934 Unknown [id number] 2.16.8 40.1.108576.3.579.2.727 1934 Unknown [id number] 2.16.8 40.1.411007.3.579.2.727 1934 Unknown [id number] 2.16.8 40.1.216345.3.579.2.727 1934 Unknown [id number] 2.16.8 40.1.844884.3.579.2.727 1934 Unknown [id number] 2.16.8 40.1.594733.3.579.2.727 1934 Unknown [id number] 2.16.8 40.1.206447.3.579.2.727 1934 Unknown [id number] 2.16.8 40.1.001974.3.579.2.727 1934 Unknown [id number] 2.16.8 40.1.543390.3.579.2.727 1934 Unknown [id number] 2.16.8 40.1.873263.3.579.2.727 1934 Unknown [id number] 2.16.8 40.1.876166.3.579.2.727 1934 Unknown [id number] 2.16.8 40.1.785252.3.579.2.727 Unknown [id number] 2.16.8 40.1.188830.3.579.2.531 Social History Date Type Detail Facility Start: 12-25-2023 Tobacco smoking status Never s moked tobacco (finding) [facility] Tobacco smoking status Never [facility] Sex Assigned At Male [facility] Functional Status Date Assessment Result Facility 01-15-2024 Functional Status N/A [facility] 12-25-2023 Functional Status N/A [facility] Clinical Notes 12-30-2021 to 02-15-2024 Note Date [...] Follow these instructions at home: ? Take zzzy-boa-qehjshy and prescription medicines only as told by [...] important. Where to find more information ? [place] [employer] (ACS): cancer.org ? National Cancer [place] (NCI): cancer.gov Contact a health care provider [...] discuss any q (more content not included)... [facility] 01-28-2024 Note Remains stable witho ut concerning symptoms [facility] 01-28-2024 Note Lipid abnormalities are well controlled Continue crestor [facility] 01-28-2024 Note Coronary artery dise ase is stable without any concerning symptoms Continue GDMT- ASA, coreg, crestor and imdur continue risk factor modifications- heart healthy diet, regular exercise as tolerated and continue all medications. [facility] 01-28-2024 Note Hypertension is well controlled currently. Continue coreg, norvasc, and imdur Renal function normal [facility] 01-28-2024 Note [facility] CARDIOLOGY PROGR ESS NOTE [...] FINAL IMPRESSIONS: 1. 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 [facility] 01-28-2024 Note Pt is here for a six month follow up. Pt denies sob, chest pain, palpatiations. Pt had pre surgery testing done. Review of Systems Cardiovascular: Negative for leg swelling (L>R). Musculoskeletal: Positive for back pain. All other systems reviewed and are negative. [facility] 01-28-2024 Note RCRI= 2 points Class III Risk 10.1 % 30-day risk of , PA, or cardiac arrest From a cardiac perspective pt may proceed with planned surgery/urological procedure, he is a moderate risk for a moderate to high risk procedure. Prefer Aspirin to not be held, but if absolutely necessary may hold 5-7 days. Please monitor hemodynamics carefully and prevent any major fluid shifts. [facility] 01-15-2024 Evaluation + Plan note Extrac ariadna from: Title:Urology Progress Note Author:Andrey MOBLEY MD Date:01/15/24 Impression and Plan Impression: #1. He has bladder tumors. These need to get resected. Plan: #1. He is getting scheduled for cystoscopy and TURBT under anesthesia. Future Appointments Appointment Date:02/15/2024 08:45:00 AM Scheduled Provider:Orestes MOBLEY MD Location:[facility] Appointment Type:URO Office Visit Future Scheduled Tests Laboratory* Urine Culture 12/31/23 [facility] 09-03-2024 Hospital Discharge instructions Patient Education [...] Up Care 12/31/2023 09:27:58 With:Orestes MOBLEY Address: [address] [place] [phone] (1) When: Unknown Comments:Office will call to schedule follow up [facility] 09-03-2024 NoteProgress Note-Physician Patient: KINGSLEY NARANJO [facility]: [id number] Age: 88 years Sex: Male : 1935 Associated Diagnoses: None Author: Orestes MOBLEY MD this gentleman has gross hematuria and a [...] list: All Problems Hypertension / SNOMED CT 4904546937 / Confirmed BPH with elevated PSA / SNOMED CT 584405563 / Confirmed Right inguinal hernia / SNOMED CT 293833089 / Confirmed Hypothyroidism / SNOMED CT 77960772 / Confirmed Arteriosclerotic heart disease (ASHD) / SNOMED CT 98339725 / Confirmed High cholesterol / SNOMED CT 71744166 / Confirmed Right groin pain / SNOMED CT 3112937111 / Confirmed 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 Ischemic heart disease (4004930887): Resolved. Family History: Bilateral primary ovarian cancer Mother Procedure history: Colonoscopy (974678816) on 06/30/2009 at 73 Years. Cardiac catheterization (99593325). Coronary angioplasty (01251486). Repair of inguinal hernia (36203133). Comments: 01/15/2019 15:25 EDT - Rogelio Jha left Social History Social & Psychosocial Habits Alcohol [...] scheduled for cystoscopy and TURBT under anesthesia. [facility]Result Comment: Electronically Signed By: MATEO [...] if you have a fever over 100 degrees.[facility] 12-25-2023 Evaluation + Plan note Diagnostic Tests Pending * Creatinine 12/25/23 [facility] 08-13-2024 Evaluation + Plan note Diagnostic Tests Pending * Urine Cytology ([facility]) 12/25/23 [facility] 08-13-2024 Hospital Discharge instructions Patient Education [...] including vitamins, herbs, eye drops, creams, and yaau-ygf-rvuhzkj medicines. Any problems you or family members [...] provider tells you to take them. Taking aris-erh-oxcrqdg medicines, vitamins, herbs, and supplements. Tests You [...] Follow these instructions at home: Medicines Take bblw-arv-ywgbynu and prescription medicines only as told by [...] provider. Document Revised: 01/11/2022 Document Reviewed: 12/10/2020 [employer] Patient Education 2022 [email or web address]. 12/25/2023 09:15:16 Hematuria, Adult Hematuria, Adult Hematuria [...] Follow these instructions at home: Medicines Take kudu-nct-renmrgd and prescription medicines only as told by [...] or the blood stops without treatment. Take omtp-hwx-yiaroaf and prescription medicines only as told by your health care provider. Drink enough fluid to keep your urine pale yellow. This information is not intended to replace advice given to you by your health care provider. Make sure you discuss any questions you have with your health care provider. Document Revised: 12/29/2020 Document Reviewed: 12/29/2020 [employer] Patient Education 2022 [email or web address]. Follow Up Care 12/06/2023 14:27:33 With:JONNY BATEMAN, REX Jackson, URL Address: [address] [facility] [address] [phone] When: Unknown [facility] 08-13-2024 NotePatient Education Urology Cystoscopy Cystoscopy is [...] including vitamins, herbs, eye drops, creams, and vhux-aig-ptljmal medicines. ? Any problems you or family [...] tells you to take them. ? Taking qgyw-xtp-zoxxuye medicines, vitamins, herbs, and supplements. Tests You [...] these instructions at home: Medicines ? Take kjpe-mfu-jhshdeo and prescription medicines only as told by [...] your health care provider, (more content not included)...[facility] Chief Complaint: [...] FINAL IMPRESSIONS: 1. 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 Pittman in the [place] office in the next 2-4 weeks. 7. Follow up with Dr. Melvin as scheduled. PROCEDURES: Ultrasound-guided access to the right common femoral artery, limited femoral angiography, bilateral selective coronary angiography, angiography of internal mammary artery graft, angiography of the saphenous vein graft, placement of a 6-Estonian MynxGrip closure device. Echocardiogram 12/2021: Global left ventricular systolic function is normal; EF 55 to 60%. Mild biatrial dilatation. Mild to moderate tricuspid regurgitati (more content not included)...[facility] Chief Complaint: Patient here for 6 mo follow up CAD, hypertension, and hyperlipidemia. [facility], and [facility] PCP at the [facility] switched his statin to Crestor. He and [...] FINAL IMPRESSIONS: 1. 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 Pittman in the [place] office in the next 2-4 weeks. 7. Follow up with Dr. Melvin as scheduled. PROCEDURES: Ultrasound-guided access to the right common femoral artery, limited femoral angiography, bilateral selective coronary angiography, angiography of internal mammary artery graft, angiography of the saphenous vein graft, placement of a 6-Estonian MynxGrip closure device. Labs 09/18/2022: Total cholesterol 119, LDL 63, (more content not included)...[facility]01-10-2023 NotePROCEDURE: XR LSPINE MIN 4 [...] Electronically authenticated by: MACY MICHAEL Date: 2022-05-23 08:14[facility]01-10-2023 NotePROCEDURE: XR HIP LT 2 3V [...] Electronically authenticated by: MACY MICHAEL Date: 2022-05-23 08:09[facility]08-19-2022 NoteMR#: [id number] [facility] Pt. Name: Kingsley Naranjo Admitted: [...] as bypass graft angiography. Coronary angiogram showed saxman arteries left main is calcified but patent. [...] Jensen MD Date Trans: 12/30/2021 09:11 A/jeanne [id number] cc: Tucker Melvin M.D. [address], [facility] [id number] note Future Appointments Appointment Date:01/08/2024 08:30:00 AM Scheduled Provider: Location:[facility] Appointment Type:Urology CALL PAT FT Appointment Date:01/15/2024 10:45:00 AM Scheduled Provider: Location:[facility] Appointment Type:Urology FT Future Scheduled Tests Laboratory* Urine Culture 12/31/23 [facility] Hospital course Narrative No data available for this section [facility] Hospital Discharge instructions No data available for this section [facility] Progress note No data available for this section [facility] Summary Purpose Family History No Family [...] and content) DATE CREATED AUTHOR 01/08/2022 [facility] DATE CREATED AUTHOR AUTHOR'S ORGANIZ ATION 08/06/2022 [facility] [facility] DATE CREATED AUTHOR AUTHOR'S ORGANIZ ATION 07/26/2023 [facility] EPIC DATE CREATED AUTHOR AUTHOR'S ORGANIZ ATION 12/31/2023 Rex[facility] DATE CREATED AUTHOR AUTHOR'S ORGANIZ ATION 01/28/2024 [facility] DATE CREATED AUTHOR AUTHOR'S ORGANIZ ATION 02/12/2024 [facility] DATE CREATED AUTHOR AUTHOR'S ORGANIZ ATION 02/19/2024 [facility] Patient Care team informatio n (unrecognized section and content) Personnel Name: Tucker Melvin MD Address: Address: [address] [place] [address] Personnel Name: Tucker Melvin MD Address: Address: [address] [place] [address] Personnel Name: Tucker Melvin MD Address: Address: [address] [place] [address] Personnel Name: Tucker Melvin MD Address: Address: [address] [place] [address] FOR RECORDS PERTAINING TO PATIENTS WHO ARE [...] BE BASED ON THE PRIMARY CLINICAL RECORDS. [facility]. provides no warranty or guarantee of the accuracy or completeness of information in this document.
== END 2024-02-20 07:29 | disposition home or self-care (01) ==
LOC: PST 07:29
PROVIDERS: PCP Family Medicine; Visit Provider Urology
DX: Z01.818 Encounter for other preprocedural examination (principal); C67.9 Malignant neoplasm of bladder, unspecified; I10 Essential (primary) hypertension; E78.5 Hyperlipidemia, unspecified; E03.9 Hypothyroidism, unspecified; N40.0 Benign prostatic hyperplasia without lower urinary tract symptoms; I25.10 Atherosclerotic heart disease of native coronary artery without angina pectoris

== ENCOUNTER 2024-02-21 09:39 | Day surgery (SDC) | payer MEDICARE, OTHER, SELFPAY ==
[2024-02-21] VITALS (11 sets, daily range): BP systolic 114–159; BP diastolic 64–82; PULSE 45–67; TEMP 36.2; O2SAT 95–99; BMI 23.3; BMI 25.0
--- OUTSIDE RECORDS SUMMARY | 2024-02-21 09:46 | XMS_ITS | CCD ---
Author Organization [facility] CliniSysd Care Team Providers Care Brush Worker Name Role Phone ELTAHAWY, EHAB A Attending [...] Consulting Unavailable Tucker Melvin Primary Care Physician [phone] JONNY, REX Jackson Attending Unavailable Meera, Tucker [...] Medication Allergies] Propensity to adverse reactions (disorder) [facility] Medications Current Medications Medication Drug Class(es) [...] procedure, # 2 tab(s), Refills(s) 0, Pharmacy: [facility]/pharmacy #[id number], 178, cm, 12/25/23 8:48:00 EDT, Height/Length [...] disease (20 sources) Atherosclerotic heart disease of crow coronary artery without angina pectoris; Translations: [Angina [...] te Episodic/Chronic Other aftercare (1 source) Other correction (current) drug therapy; Translations: [OTH SKILLED NURSING CURRENT DRUG THERAPY] Onset: 12-27-2021 Episodic Results [...] DICK, Orestes Beckman Where: [facility] [id number]- Medications What How Much When Instructions Unchanged [...] choosing us for your care. 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 cotton sampler. Results reviewed with pt and his son in detail. Called and spoke with [facility] [place]ologist. Reviewed pathology slides and he confirmed [...] BPH w (more content not included)... Normal [facility] Comment on above: Result Comment: Elec tronically Signed By: MATEO DICK, Orestes Beckman\.br\Date and Time Signed: 02/15/24 09:23 EDT\.br\Electronically Co-Signed By: Kate Seth\.br\Date and Time Co-Signed: 02/15/24 09:16 EDT Bryce 02-07-2024 L Specimen: [id number] Received: 02/08/24 Status: GIL Luciano Num: [id number] Spec Type: Surgical Subm Dr: Orestes Mobley MD Tissues: A Urinary Bladder - biopsy (BLADDER TUMOR) Procedures: HE/2, Gross/Micro L4 Age/ Patient Sex Location Account Attending Physician Kingsley Naranjo 88/M LABEL [id number] Orestes Mobley MD SPEC NUM: [id number] RECD: 02/08/24 STATUS: GIL LUCIANO NUM: [id number] TANNER: 02/07/[address]: Orestes Mobley MD ENTERED: 02/08/[address] [facility] [address]: Isaiah Cleaning SPEC TYPE: Surgical DEPT: COLIN MENDOZA ENTERED BY: [id number] RECV BY: [id number] ORDERED: HE/2, Gross/Micro L4 ORDERED: HE/2, Gross/Micro L4 Pathological Diagnosis Urinary bladder tumor, 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 ---- Specimen: [id number] Received: 02/08/24 Status: GIL Luciano Num: [id number] Spec Type: Surgical Subm Dr: Orestes Mobley MD Tissues: A Urinary Bladder - biopsy (BLADDER TUMOR) Procedures: HE/2, Gross/Micro L4 ---- Patient: Kingsley Naranjo [id number] (Continued) ---- Specimen: [id number] Received: 02/08/24 (Continued) Signed (signature on file) Philomena Busch MD 02/11/24 1728 ---- Specimen: [id number] Received: 02/08/24 Status: GIL Luciano Num: [id number] Spec Type: Surgical Subm Dr: Orestes Mobley MD Tissues: A Urinary Bladder - biopsy (BLADDER TUMOR) Procedures: HE/2, Gross/Micro L4 ---- Patient: Kingsley Naranjo [id number] (Continued) ---- Specimen: [id number] Received: 02/08/24 (Continued) Microscopic Description Microscopic examinations are performed supporting the above interpretation CPT Codes 75452 ---- ---- Specimen: [id number] Received: 02/08/24-1511 Status: GIL Luciano Num: [id number] Spec Type: Surgical Subm Dr: Orestes Mobley MD Tissues: A Urinary Bladder - biopsy (BLADDER TUMOR) Procedures: HE/2, Gross/Micro L4 ---- Patient: Kingsley Naranjo [id number] (Continued) ---- Signed (signature on file) Philomena Busch MD 02/11/24 1728 Normal [facility] Office Visiton 01-28-2024 Follow-up visit [id number] Fernie Naranjo 1935 M Date Provider Department Center 01/28/2024 120-VINH GUZMAN [facility] [place] [facility] No family history on file Level of Service:18269 [place] OFFICE/OUTPATIENT ESTABLISHED MOD MDM 30 MIN Normal [facility] Main OR Intraoperative Recor don 01-15-2024 Main OR Intraoperative Record Main OR Intraoperative Record IntraOp Document Type FTURO Summary Primary Physician: Orestes MOBLEY MD Finalized Date/Time: 01/15/24 11:19:04 Pt. Name: KINGSLEY NARANJO./Sex: 1935 Male Med Rec #: [id number] Physician: Orestes MOBLEY MD Financial #: [id number] Pt. Type: O Room/Bed: / Admit/Disch: 01/15/24 [...] Deborah Rodríguez Role Performed Surgeon - Primary Physician Representative - Primary Scrub - Primary Time In [...] By: Luanne Hoffman RN 01/15/24 11:19 Normal [facility] Main OR Preoperative Recordo n 01-15-2024 Main OR Preoperative Record Main OR Preoperative Record Holding Area Document Type FTURO Summary Primary Physician: Orestes MOBLEY MD Finalized Date/Time: 01/15/24 10:31:41 Pt. Name: KINGSLEY NARANJOO.B./Sex: 1935 Male Med Rec #: [id number] Physician: Orestes MOBLEY MD Financial #: [id number] Pt. Type: O Room/Bed: / Admit/Disch: 01/15/24 [...] Complaints of Pain: No Skin Integrity Intact, [facility], Warm, & Dry Vitals - EU Blood Pressure 126/73 Pulse 80 bpm Respirations 18 br/min SPO2 Additional None Specimens Collected Last Modified By: Mari Estrella LPN 01/15/24 10:31:36 Finalized By: Mari Estrella LPN Document Signatures Signed By: Mari Estrella LPN 01/15/24 10:31 Normal [facility] Operative Reporton Operative Report Operative Report Patient: [...] for cystoscopy and TURBT under anesthesia.. Normal [facility] Comment on above: Result Comment: Elec tronically Signed By: Orestes MOBLEY MD\.br\Date and Time Signed: 01/15/24 11:16 EDT Urine Cytology ([facility])on 12-30-2023 Microscopic exam Cytology (U) [Interp] Diagnosis Info Invalid Interpretation Code [facility] Comment on above: Result Comment: A:Ur ine,Urine:Voided Interpretation - Atypical Urothelial Cells; Favor Reactive Process. Adequate cellularity for evaluation. MicroScopic Description - Adequacy - Adequate Gross Description Site ID:A color Yellow fixative Alcohol Specimen designated Urine received in alcohol preservative and labeled with the patient?s name, consists of 90ml clear yellow fluid. Electronically signed by : on: 12/30/2023 11:24:24 Performed By: #### 1 [id number] #### [facility] [address] [place] [address] Ambulatory Visit Summaryon 0 12-25-2023 Ambulatory Visit [...] REX FULLER PA-C Primary Care Physician - Tucekr Melvin MD Referring Physician - Tucker Melvin [...] When: Where: [address] [place] [address] [phone] Medications What How Much When Instructions Unchanged [...] ? Un (more content not included)... Normal [facility] Ambulatory Visit Summary Ambulatory Visit Summary KINGSLEY NARANJO :1935 Visit Date:12/25/2023 Ambulatory Visit Instructions Your Diagnosis Gross hematuria Bladder mass Kidney stone BPH with obstruction/lower urinary tract symptoms Elevated PSA Tests Performed CT Urogram -- Results Pending -- Please visit your patient portal for your results or contact your primary care physician. Your Care Team Attending Physician - REX FULLRE PA-C Primary Care Physician - Tucker Melvin [...] PA-C, URL When: Where: [address] [place] [address] [id number] Medications What How Much When Instructions Unchanged [...] ? Un (more content not included)... Normal [facility] Urine Cytology ([facility])on 0 12-25-2023 Method of Extraction Voided Normal [facility] Comment on above: Performed By: #### 1 [id number] #### [facility] [address] Number of Jars 1 Invalid Interpretation Code [facility] Comment on above: Performed By: #### 1 [id number] #### [facility] [address] Specimen Urine Normal [facility] Comment on above: Performed By: #### 1 [id number] #### [facility] [address] Type of Service Technical Only Normal [facility] Comment on above: Performed By: #### 1 [id number] #### [facility] [address] [place] [address] Urology Office/Clinic Noteon 12-25-2023 Urology Office/Clinic Note [...] mass (N32.89: Other specified disorders of bladder) [facility] 11/27/23 TBH - 3.6 cm bladder mass. Reviewed imaging results. Advised pt bladder masses can be misread on US and may act (more content not included)... Normal [facility] Comment on above: Result Comment: Elec tronically Signed By: REX FULLER PA-C\.br\Date and Time Signed: 12/25/23 09:32 EDT\.br\Electronically Co-Signed By: Hortencia Thomas\.br\Date and Time Co-Signed: 12/25/23 09:24 EDT Office Visiton 08-08-2023 Follow-up visit [id number] Fernie Naranjo 1935 M [facility] Provider Department [facility] No family history on file Level of Service:51368 [place] OFFICE/OUTPATIENT ESTABLISHED LOW MDM 20 MIN Normal [facility] Office Visiton 02-06-2023 Follow-up visit [id number] Ferine Naranjo 1935 Date Provider Department Center 02/06/2023 ADÁN CHING [facility] No family history on file Level of Service:18525 [place] OFFICE/OUTPATIENT ESTABLISHED LOW MDM 20-29 MIN Normal [facility] OCC BLD IMMUNO SCREENon 07-12 OCCULT BLOOD Negative Normal NEGATIVE [facility] Comment on above: Performed By: #### O BSCRN #### [facility] [address] [place] [address] Dr. Gricel Busch MRI LSPINE WO CONon [...] by: GAY WHEELER Date: 2022-06-09 09:46 Normal [facility] CT TSPINE WO CONon 2 CT [...] by: MACY MICHAEL Date: 2022-01-05 16:34 Normal [facility] CBC COMPLETE BLOOD COUNTon 0 - Erythrocyte distribution width (RBC) [Ratio] 13.4 % Normal 11.5-15.0 [facility] Comment on above: Order Comment: No: D o not add to previous draw Performed By: #### 5 [id number] #### [facility] [address] [place] [address], [facility] Hematocrit (Bld) [Volume fraction] 38.5 % Low 39.0-50.0 [facility] Comment on above: Order Comment: No: D o not add to previous draw Performed By: #### 5 0608 #### [facility] [address] [place] [address], [facility] Hemoglobin (Bld) [Mass/Vol] 13.5 g/dL Normal 13.0-17.0 [facility] Comment on above: Order Comment: No: D o not add to previous draw Performed By: #### 5 0608 #### [facility] [address] [place] [address], [facility] MCH (RBC) [Entitic mass] 32.4 pg Normal 27.0-33.0 [facility] Comment on above: Order Comment: No: D o not add to previous draw Performed By: #### 5 0608 #### [facility] [address] [facility] [place] [address], [facility] MCHC (RBC) [Mass/Vol] 35.1 g/dL High 32.0-35.0 [facility] Comment on above: Order Comment: No: D o not add to previous draw Performed By: #### 5 0608 #### [facility] [address] [facility] [address], [facility] MCV (RBC) [Entitic vol] 92.3 fL Normal 82.0-98.0 [facility] Comment on above: Order Comment: No: D o not add to previous draw Performed By: #### 5 0608 #### [facility] [address] [place] [address], [facility] Nucleated RBC/100 WBC (Bld) [Ratio] 0 % Normal 0-0 [facility] Comment on above: Order Comment: No: D o not add to previous draw Performed By: #### 5 0608 #### [facility] [address] [place] [address], [facility] PLAT CNT 165 10*3/uL Normal 150-400 [facility] Comment on above: Order Comment: No: D o not add to previous draw Performed By: #### 5 0608 #### [facility] [address] [place] [address], [facility] RBC (Bld) [#/Vol] 4.17 10*6/uL Low 4.20-5.70 [facility] Comment on above: Order Comment: No: D o not add to previous draw Performed By: #### 5 0608 #### [facility] [address] [place] [address], [facility] WBC (Bld) [#/Vol] 8.33 10*3/uL Normal 4.00-10.60 [facility] Comment on above: Order Comment: No: D o not add to previous draw Performed By: #### 5 0608 #### [facility] [address] [facility] [place] [address], [facility] CREATININE BLOODon 2 Creatinine [Mass/Vol] 0.82 mg/dL Normal 0.70-1.30 [facility] Comment on above: Order Comment: No: D o not add to previous draw Performed By: #### 2 5656 #### [facility] [address] [facility]. [address] GFR/1.73 sq M.predicted among non-blacks MDRD (S/P/Bld) [Vol rate/Area] mL/min/{1.73_m2} Normal >60 [facility] Comment on above: Order Comment: No: D o not add to previous draw Result Comment: [facility]'s estimated glomerular filtration rate (eGFR) [...] individuals. Performed By: #### 2 5656 #### [facility] [address] [facility] [place] [address], [facility] Cardiovascular Lab Reporton 12-29-2021 Cardiovascular Lab Report [facility] Patient Name: [facility] D MR #: [id number] Department of Physician: Adeline Carlos M.D. Division of Service Date: 12/28/2021 Cardiology Birthdate: 1935 Adult Cardiovascular Room #: 3AB [id number] [facility] [address] [place] [address] Cardiovascular Laboratory Report FINAL IMPRESSIONS: 1. 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 Pittman in the [place] office in the next 2-4 weeks. 7. Follow up with Dr. Melvin as scheduled. PROCEDURES: Ultrasound-guided access to the right common femoral artery, limited femoral angiography, bilateral selective coronary angiography, angiography of internal mammary artery graft, angiography of the saphenous vein graft, placement of a 6-[place] MynxGrip closure device. METHODS: After risks, benefits, [...] was performed. This was upsized to a 6-[place] 11 cm sheath. Bilateral selective coronary angiography [...] the procedure. All catheters were removed. A 6-[place] MynxGrip closure device was deployed per protocol [...] marginals. Distal filling is seen into the crow obtuse marginal via saphenous vein graft. Just [...] patent (more content not included)... Normal [facility] TROPONIN-Ion 12-28-2021 Troponin I.cardiac [Mass/Vol] 0.09 ng/mL High 0.00-0.04 [facility] Comment on above: Order Comment: No: D o not add to previous draw Result Comment: REFE RENCE RANGES: 0.00 - 0.04 ng/ml NORMAL 0.05 - 0.50 ng/ml INDETERMINATE > 0.50 ng/ml CONSISTENT WITH AN M.I. Performed By: #### 3 [id number] #### [facility] [address] CBC AUTO DIFFon 12-26-2021 BASO # 0.0 103/ul Normal 0.0-0.1 [facility] Comment on above: Performed By: #### C BC #### [facility] [address] [place] [address] [address] Gricel Busch Basophils/100 WBC (Bld) 0.6 % Normal 0.2-2.0 [facility] Comment on above: Performed By: #### C BC #### [facility] [address] [place] [address] [address] Gricel Busch EO # 0.1 103/ul Normal 0.0-0.7 [facility] Comment on above: Performed By: #### C BC #### [facility] [address] [place] [address] [address] Gricel Busch Eosinophils/100 WBC (Bld) 1.8 % Normal 0.9-7.0 [facility] Comment on above: Performed By: #### C BC #### [facility] [address] [place] [address] Dr. Gricel Busch Erythrocyte distribution width (RBC) [Ratio] 13.1 % Normal 11.0-15.0 [facility] Comment on above: Performed By: #### C BC #### [facility] [address] [place] [address] Dr. Gricel Busch Hematocrit (Bld) [Volume fraction] 42.4 % Normal 42.0-54.0 [facility] Comment on above: Performed By: #### C BC #### [facility] [address] [place] [address] Dr. Gricel Busch Hemoglobin (Bld) [Mass/Vol] 13.9 g/dL Critically low 14.0-18.0 [facility] Comment on above: Performed By: #### C BC #### [facility] [address] [place] [address] Dr. Gricel Busch IG # 0.03 10e3/ul Normal 0.00-0.03 [facility] Comment on above: Performed By: #### C BC #### [facility] [address] [place] [address] Dr. Gricel Busch IG % 0.4 % Normal 0.0-0.5 [facility] Comment on above: Performed By: #### C BC #### [facility] [address] [place] [address] Dr. Gricel Busch LYMPH # 1.2 103/ul Normal 1.2-3.8 [facility] Comment on above: Performed By: #### C BC #### [facility] [address] [place] [address] Dr. Gricel Busch Lymphocytes/100 WBC (Bld) 16.9 % Critically low 20.5-60.0 [facility] Comment on above: Performed By: #### C BC #### [facility] [address] [place] [address] Dr. Gricel Busch MANUAL DIFF REQ NO Normal [facility] Comment on above: Performed By: #### C BC #### [facility] [address] [place] [address] Dr. Gricel Busch MCH (RBC) [Entitic mass] 31.3 pg Normal 25.9-34.0 [facility] Comment on above: Performed By: #### C BC #### [facility] [address] [place] [address] Dr. Gricel Busch MCHC (RBC) [Mass/Vol] 32.8 g/dL Normal 29.9-35.2 [facility] Comment on above: Performed By: #### C BC #### [facility] [address] [place] [address] Dr. Gricel Busch MCV (RBC) [Entitic vol] 95.5 fL Critically high 80.0-94.0 [facility] Comment on above: Performed By: #### C BC #### [facility] [address] [place] [address] Dr. Gricel Busch MONO # 0.8 103/ul Normal 0.3-0.8 [facility] Comment on above: Performed By: #### C BC #### [facility] [address] [place] [address] Dr. Gricel Busch Monocytes/100 WBC (Bld) 10.9 % Normal 1.7-12.0 [facility] Comment on above: Performed By: #### C BC #### [facility] [address] [place] [address] Dr. Gricel Busch NEUT # 4.9 103/ul Normal 1.4-6.5 [facility] Comment on above: Performed By: #### C BC #### [facility] [address] [place] [address] Dr. Gricel Busch Neutrophils/100 WBC (Bld) 69.4 % Normal 43.0-75.0 [facility] Comment on above: Performed By: #### C BC #### [facility] [address] [place] [address] Dr. Gricel Busch Platelet mean volume (Bld) [Entitic vol] 9.6 fL Normal 9.5-13.5 [facility] Comment on above: Performed By: #### C BC #### [facility] [address] [place] [address] Dr. Gricel Busch PLT 191 103/ul Normal 150-450 [facility] Comment on above: Performed By: #### C BC #### [facility] [address] [place] [address] [address] Gricel Busch RBC 4.44 106/ul Critically low 4.70-6.10 [facility] Comment on above: Performed By: #### C BC #### [facility] [address] [place] [id number] Gricel Busch WBC 7.1 103/ul Normal 4.0-11.0 [facility] Comment on above: Performed By: #### C BC #### [facility] [address] [address] [address] Gricel Busch Covid-19 PCR (CVDTB)on 12-12 SARS-CoV-2 (COVID-19) RNA NIR+probe Ql (Unsp spec) Not detected Normal NOT DETECTED [facility] Comment on above: Result Comment: This test is not yet approved or cleared by the [place] FDA. When there are no FDA-approved or cleared tests available, and other criteria are met, FDA can make tests available under an emergency access mechanism called an Emergency Use Authorization (EUA). The EUA for this test is supported by the [place] of Health and Human Service's (HHS's) declaration [...] SARS-CoV-2. Performed By: #### C VDTBH #### [facility] [address] [place] [address] [address] Gricel Busch PROF CHEM 8 (BAS METB)on Anion gap [Moles/Vol] 9.6 mmol/L Normal [facility] Comment on above: Performed By: #### B MP #### [facility] [address] [address] [address] Gricel Busch Calcium [Mass/Vol] 9.8 mg/dL Normal 8.5-10.1 [facility] Comment on above: Performed By: #### B MP #### [facility] [address] [place] [address] [address] Gricel Busch Chloride [Moles/Vol] 102 mmol/L Normal 98-107 [facility] Comment on above: Performed By: #### B MP #### [facility] [address] [place] [address] [address] Gricel Busch CO2 [Moles/Vol] 28.1 mmol/L Normal 21.0-32.0 [facility] Comment on above: Performed By: #### B MP #### [facility] [address] [place] [address] [address] Gricel Busch Creatinine [Mass/Vol] 0.88 mg/dL Normal 0.70-1.30 [facility] Comment on above: Performed By: #### B MP #### [facility] [address] [place] [address] [address] Gricel Busch EGFR-AF VINCENTIAN >60 Normal >=60 [facility] Comment on above: Performed By: #### B MP #### [facility] [address] [place] [address] [address] Gricel Busch EGFR-NON AF VINCENTIAN >60 Normal >=60 [facility] Comment on above: Performed By: #### B MP #### [facility] [address] [address] [address] Gricel Busch Glucose [Mass/Vol] 101 mg/dL Normal 74-106 [facility] Comment on above: Performed By: #### B MP #### [facility] [address] [address] [address] Gricel Busch Potassium [Moles/Vol] 4.7 mmol/L Normal 3.5-5.1 [facility] Comment on above: Performed By: #### B MP #### [facility] [address] [place], [place] [address] Dr. Gricel Busch Sodium [Moles/Vol] 135 mmol/L Critically low 136-145 Th e [facility] Comment on above: Performed By: #### B MP #### [facility] [address] [place], [place] [address] Dr. Gricel Busch Urea nitrogen [Mass/Vol] 12.0 mg/dL Normal 7.0-18.0 [facility] Comment on above: Performed By: #### B MP #### [facility] [address] [place], [place] [address] Dr. Gricel Busch Urea nitrogen/Creatinin e [Mass ratio] 13.6 mg/mg Normal [facility] Comment on above: Performed By: #### B MP #### [facility] [address] [place], [place] [address] Dr. Gricel Busch ECHOCARDIO M/2D COMPLETEon 0 12-21-2021 ECHOCARDIO M/2D COMPLETE Patient: KINGSLEY NARANJO Exam Date: 12/21/2021 : 1935 Gender:M Ordering : DR TUCKER MELVIN . Admission #: [id number] Family : Order #: [id number] CLICK HERE TO VIEW EXAM ECHOCARDIOGRAM REPORT [...] Daniels M.D. on 12/21/2021 at 19:28 Normal [facility] STRESS/REST MULTIon 12-20 NM STRESS/REST MULTI Patient: DICKKINGSLEY Exam Date: 12/20/2021 : 1935 Gender:M Ordering : DR TUCKER MELVIN . Admission #: [id number] Family : Order #: [id number] CLICK HERE TO VIEW EXAM RADIOLOGY REPORT [...] MD on 12/20/2021 at 14:18 Normal [facility] Vital Signs Date Time Vital Sign Value Performing Clinician Facility 12-25-2023 08:38-0400 Body temperature 97.88 [degF] REX ROCKRY [facility] 12-25-2023 08:38-0400 Diastolic blood pressure 82 mm[Hg] REX JONNY [facility] 12-25-2023 08:38-0400 Heart rate 58 /min REX JONNY [facility] 12-25-2023 08:38-0400 Respiratory rate 16 /min REX JONNY [facility] 12-25-2023 08:38-0400 Systolic blood pressure 150 mm[Hg] REX JONNY [facility] Encounters Encounter Date Encounter Type Care Provider Facility Start: 02-21-2024 [id number] Start: 02-18-2024 End: 02-18-2024 ambulatory Orestes MOBLEY Facility:[facility] Start: 02-15-2024 End: 02-15-2024 ambulatory Orestes MOBLEY Facility:[facility] Start: 02-07-2024 End: 02-07-2024 ambulatory Orestes Mobley Facility:[facility] Start: 02-07-2024 End: 02-07-2024 ambulatory Orestes MOBLEY Facility:CD:[id number] Start: 01-28-2024 End: 01-28-2024 ambulatory [facility] Start: 01-28-2024 End: 01-28-2024 Encounter for preprocedural cardiovascular examination [facility] Start: 01-28-2024 Encounter for preprocedural cardiovascular examination [facility] Start: 01-15-2024 End: 01-15-2024 ambulatory Orestes MOBLEY Facility:[facility] Start: 01-15-2024 End: 01-15-2024 Patient encounter procedure Orestes MOBLEY [facility] Start: 12-31-2023 End: 12-31-2023 ambulatory [facility] Start: 12-31-2023 End: 12-31-2023 Patient encounter procedure Hamida Faheem Galea [facility] Start: 12-25-2023 End: 12-25-2023 ambulatory REX E JONNY Facility:[facility] Start: 12-25-2023 End: 12-25-2023 Lab Drop off REX E JONNY [facility] Start: 12-25-2023 End: 12-25-2023 ambulatory REX E JONNY Facility:[facility] Start: 12-25-2023 End: 12-25-2023 Patient encounter procedure REX E JONNY [facility] Start: 12-12-2023 ambulatory REX E JONNY Facili ty:[facility] Start: 11-29-2023 ambulatory REX JONNY Facility :[facility] Start: 08-08-2023 End: 08-08-2023 ambulatory EHAB [facility] Start: 07-25-2023 End: 07-25-2023 ambulatory Not Available Start: 07-12-2023 End: 07-12-2023 ambulatory Not Available Start: 02-06-2023 End: 02-06-2023 [facility] Start: 07-28-2022 End: 07-28-2022 ambulatory [...] Start: 12-28-2021 End: 12-29-2021 ambulatory ADÁN PITTMAN Facility:[facility] Start: 12-26-2021 End: 12-27-[address] [...] Immunization Date Immunization Notes Care Provider Fa [facility] 03-26-2023 influenza virus vaccine, unspecified formulation REX FULLER [facility] 09-16-2021 SARS-CoV-2 mRNA (kwowocwfpbs-cjvj-mkfyc se) vaccine REX JONNY [facility] Comment on above: Result Comment: 2023: TPV80 02-24-2021 SARS-CoV-2 (COVID-19 ) mRNA BNT-162b2 vax REX JONNY [facility] Comment on above: Result Comment: 2023: TPV80 02-18-2021 influenza virus vaccine, unspecified formulation REX JONNY [facility] 06-30-2020 SARS-CoV-2 (COVID-19 ) mRNA BNT-162b2 vax REX JONNY [facility] 06-07-2020 SARS-CoV-2 (COVID-19 ) mRNA BNT-162v8 vax REX JONNY [facility] 04-05-2020 influenza virus vaccine, unspecified formulation REX JONNY [facility] 03-07-2019 influenza virus vaccine, unspecified formulation REX JONNY [facility] [place] 04-13-2017 influenza virus vaccine, unspecified formulation REX JONNY [facility] 02-12-2017 influenza virus vaccine, unspecified formulation REX JONNY [facility] 11-13-2016 pneumococcal polysaccharide vaccine, 23 valent REX JONNY [facility] 02-12-2013 influenza virus vaccine, unspecified formulation REX FULLER [facility] 03-11-2003 pneumococcal polysaccharide vaccine, 23 valent REX FULLER [facility] NEGATED: Highlighted row has not occurred!02-21-2019 influenza virus vaccine, unspecified formulation REX FULLER [facility] [place] Comment on above: Result Comment: Will obtain from primary care physician Payers Date Payer Category Payer Self-pay 1960 Medicare [id number] 1960 Private Health Insurance [id number] 1935 Unknown [id number] 2.16.8 40.1.274701.3.579.2.647 1934 Unknown [id number] 2.16.84 0.1.138601.3.579.2.593 1934 Unknown [id number] 2.16.84 0.1.367475.3.579.2.593 1934 Unknown [id number] 2.16.84 0.1.921134.3.579.2.593 1934 Unknown [id number] 2.16.84 0.1.556401.3.579.2.593 1934 Unknown [id number] 2.16.84 0.1.075738.3.579.2.593 1934 Unknown [id number] 2.16.84 0.1.946543.3.579.2.593 1934 Unknown [id number] 2.16.84 0.1.207458.3.579.2.593 1934 Unknown [id number] 2.16.84 0.1.661349.3.579.2.593 1934 Unknown [id number] 2.16.84 0.1.628599.3.579.2.593 1934 Unknown [id number] 2.16.84 0.1.362312.3.579.2.593 1934 Unknown [id number] 2.16.84 0.1.688676.3.579.2.1259 1934 Unknown [id number] 2.16.84 0.1.895089.3.579.2.1259 1934 Unknown [id number] 2.16.8 40.1.819439.3.579.2.727 1934 Unknown [id number] 2.16.8 40.1.320809.3.579.2.727 1934 Unknown [id number] 2.16.8 40.1.155848.3.579.2.727 1934 Unknown [id number] 2.16.8 40.1.037497.3.579.2.727 1934 Unknown [id number] 2.16.8 40.1.404641.3.579.2.727 1934 Unknown [id number] 2.16.8 40.1.690571.3.579.2.727 1934 Unknown [id number] 2.16.8 40.1.196984.3.579.2.727 1934 Unknown [id number] 2.16.8 40.1.969815.3.579.2.727 1934 Unknown [id number] 2.16.8 40.1.218506.3.579.2.727 1934 Unknown [id number] 2.16.8 40.1.733725.3.579.2.727 1934 Unknown [id number] 2.16.8 40.1.001410.3.579.2.727 Unknown [id number] 2.16.8 40.1.469842.3.579.2.531 Social History Date Type Detail Facility Start: 12-25-2023 Tobacco smoking status Never s moked tobacco (finding) [facility] Tobacco smoking status Never [facility] Sex Assigned At Male [facility] Functional Status Date Assessment Result Facility 01-15-2024 Functional Status N/A [facility] 12-25-2023 Functional Status N/A [facility] Clinical Notes 12-30-2021 to 02-15-2024 Note Date [...] Follow these instructions at home: ? Take gogk-mgh-fbfctly and prescription medicines only as told by [...] important. Where to find more information ? [place] [employer] (ACS): cancer.org ? National Cancer [place] (NCI): cancer.gov Contact a health care provider [...] discuss any q (more content not included)... [facility] 01-28-2024 Note Remains stable witho ut concerning symptoms [facility] 01-28-2024 Note Lipid abnormalities are well controlled Continue crestor [facility] 01-28-2024 Note Coronary artery dise ase is stable without any concerning symptoms Continue GDMT- ASA, coreg, crestor and imdur continue risk factor modifications- heart healthy diet, regular exercise as tolerated and continue all medications. [facility] 01-28-2024 Note Hypertension is well controlled currently. Continue coreg, norvasc, and imdur Renal function normal [facility] 01-28-2024 Note UTP CARDIOLOGY PROGR [...] FINAL IMPRESSIONS: 1. 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 [facility] 01-28-2024 Note Pt is here for a six month follow up. Pt denies sob, chest pain, palpatiations. Pt had pre surgery testing done. Review of Systems Cardiovascular: Negative for leg swelling (L>R). Musculoskeletal: Positive for back pain. All other systems reviewed and are negative. [facility] 01-28-2024 Note RCRI= 2 points Class III Risk 10.1 % 30-day risk of , GA, or cardiac arrest From a cardiac perspective pt may proceed with planned surgery/urological procedure, he is a moderate risk for a moderate to high risk procedure. Prefer Aspirin to not be held, but if absolutely necessary may hold 5-7 days. Please monitor hemodynamics carefully and prevent any major fluid shifts. [facility] 01-15-2024 Evaluation + Plan note [...] Future Scheduled Tests Laboratory* Urine Culture 12/31/23 [facility] 09-03-2024 Hospital Discharge instructions Patient [...] Up Care 12/31/2023 09:27:58 With:Orestes MOBLEY Address: [address] [place] [phone]- Business (1) When: Unknown Comments:Office will call to schedule follow up [facility] 09-03-2024 NoteProgress Note-Physician Patient: KINGSLEY NARANJO [facility]: [id number] Age: 88 years Sex: Male : 1935 [...] list: All Problems Hypertension / SNOMED CT 9527592153 / Confirmed BPH with elevated PSA / SNOMED CT 933405732 / Confirmed Right inguinal hernia / SNOMED CT 446489092 / Confirmed Hypothyroidism / SNOMED CT 84738352 / Confirmed Arteriosclerotic heart disease (ASHD) / SNOMED CT 04189892 / Confirmed High cholesterol / SNOMED CT 27470145 / Confirmed Right groin pain / SNOMED CT 7396483282 / Confirmed 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 Ischemic heart disease (4666055589): Resolved. Family History: Bilateral primary ovarian cancer Mother Procedure history: Colonoscopy (993973742) on 06/30/2009 at 73 Years. Cardiac catheterization (01171180). Coronary angioplasty (07503152). Repair of inguinal hernia (19587946). Comments: 01/15/2019 15:25 EDT - Rogelio Jha [...] scheduled for cystoscopy and [facility]UR[facility] Comment: Electronically Signed By: MATEO [...] if you have a fever over 100 degrees.[facility] 12-25-2023 Evaluation + Plan note Diagnostic Tests Pending * Creatinine 12/25/23 [facility] 08-13-2024 Evaluation + Plan note Diagnostic Tests Pending * Urine Cytology ([facility]) 12/25/23 [facility] 08-13-2024 Hospital Discharge instructions Patient [...] including vitamins, herbs, eye drops, creams, and ifpe-jty-lwthxfz medicines. Any problems you or family members [...] provider tells you to take them. Taking kaee-ral-drtzlui medicines, vitamins, herbs, and supplements. Tests You [...] Follow these instructions at home: Medicines Take uxuz-ykj-xmitaef and prescription medicines only as told by [...] provider. Document Revised: 01/11/2022 Document Reviewed: 12/10/2020 [employer] Patient Education 2022 [employer] 12/25/2023 09:15:16 Hematuria, Adult Hematuria, Adult Hematuria [...] Follow these instructions at home: Medicines Take tdia-sya-iolrvmv and prescription medicines only as told by [...] or the blood stops without treatment. Take facw-ynp-kufexln and prescription medicines only as told by your health care provider. Drink enough fluid to keep your urine pale yellow. This information is not intended to replace advice given to you by your health care provider. Make sure you discuss any questions you have with your health care provider. Document Revised: 12/29/2020 Document Reviewed: 12/29/2020 [employer] Patient Education 2022 [employer] Follow Up Care 12/06/2023 14:27:33 With:JONNY BATEMAN, REX Jackson, URL Address: [address] [facility] [place] [address] [phone] When: Unknown [facility] 08-13-2024 NotePatient Education Urology Cystoscopy Cystoscopy is [...] including vitamins, herbs, eye drops, creams, and vyps-fll-siwycao medicines. ? Any problems you or family [...] tells you to take them. ? Taking evze-iui-tfdofxd medicines, vitamins, herbs, and supplements. Tests You [...] these instructions at home: Medicines ? Take pmkd-jct-jknmbek and prescription medicines only as told by [...] your health care provider, (more content not included)...[facility] Chief Complaint: [...] FINAL IMPRESSIONS: 1. 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 Pittman in the [place] office in the next 2-4 weeks. 7. Follow up with Dr. Melvin as scheduled. PROCEDURES: Ultrasound-guided access to the right common femoral artery, limited femoral angiography, bilateral selective coronary angiography, angiography of internal mammary artery graft, angiography of the saphenous vein graft, placement of a 6-[place] MynxGrip closure device. Echocardiogram 12/2021: Global left ventricular systolic function is normal; EF 55 to 60%. Mild biatrial dilatation. Mild to moderate tricuspid regurgitati (more content not included)...[facility]09-26-[facility] Chief Complaint: Patient here for 6 mo follow up CAD, hypertension, and hyperlipidemia. [facility] in [facility], and his PCP at the [facility] switched his statin to Crestor. He and [...] FINAL IMPRESSIONS: 1. 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 Pittman in the [place] office in the next 2-4 weeks. 7. Follow up with Dr. Melvin as scheduled. PROCEDURES: Ultrasound-guided access to the right common femoral artery, limited femoral angiography, bilateral selective coronary angiography, angiography of internal mammary artery graft, angiography of the saphenous vein graft, placement of a 6-[place] MynxGrip closure device. Labs 09/18/2022: Total cholesterol 119, LDL 63, (more content not included)...[facility]01-10-2023 NotePROCEDURE: XR LSPINE MIN 4 [...] Electronically authenticated by: MACY MICHAEL Date: 2022-05-23 08:14[facility]01-10-2023 NotePROCEDURE: XR HIP LT 2 3V [...] Electronically authenticated by: MACY MICHAEL Date: 2022-05-23 08:09[facility]08-19-2022 NoteMR#: [id number] [facility] Pt. Name: Kingsley Naranjo Admitted: [...] as bypass graft angiography. Coronary angiogram showed crow arteries left main is calcified but patent. [...] Jensen MD Date Trans: 12/30/2021 09:11 A/jeanne [id number] cc: Tucker Melvin M.D. [address], [facility] [id number] Future Appointments Appointment Date:01/08/2024 08:30:00 AM Scheduled Provider: Location:[facility] Appointment Type:Urology CALL PAT FT Appointment Date:01/15/2024 10:45:00 AM Scheduled Provider: Location:[facility] Appointment Type:Urology FT Future Scheduled Tests Laboratory* Urine Culture 12/31/23 [facility] Hospital course Narrative No data available for this section [facility] Hospital Discharge instructions No data available for this section [facility] Progress note No data available for this section [facility] Summary Purpose Family History No [...] and content) DATE CREATED AUTHOR 01/08/2022 [facility] DATE CREATED AUTHOR AUTHOR'S ORGANIZ ATION 08/06/2022 [facility] [place] [facility] DATE CREATED AUTHOR AUTHOR'S ORGANIZ ATION 07/26/2023 [facility] EPIC DATE CREATED AUTHOR AUTHOR'S ORGANIZ ATION 12/31/2023 [facility] DATE CREATED AUTHOR AUTHOR'S ORGANIZ ATION 01/28/2024 [facility] DATE CREATED AUTHOR AUTHOR'S ORGANIZ ATION 02/12/[address] [facility] DATE CREATED AUTHOR AUTHOR'S ORGANIZ ATION 02/19/2024 [facility] Patient Care team informatio n (unrecognized section and content) Personnel Name: Tucker Melvin MD Address: Address: [address] [place] [address] Personnel Name: Tucker Melvin MD Address: Address: [address] [place] [address] Personnel Name: Tucker Melvin MD Address: Address: [address] [place] [address] Personnel Name: Tucker Melvin MD Address: Address: [address] [place] [address] FOR RECORDS PERTAINING TO PATIENTS WHO ARE [...] BE BASED ON THE PRIMARY CLINICAL RECORDS. [facility] [employer] [facility]. provides no warranty or guarantee of the accuracy or completeness of information in this document.
[2024-02-21] MEDS: 0.9 % SODIUM CHLORIDE 500 ML 50 ML IV (10:17)
[2024-02-21] MEDS: CEFAZOLIN SODIUM 1 GM/50 ML D5W PREMIX IV (11:36)
--- NOTE | 2024-02-21 12:54 | P.URON_ITS ---
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 Cystoscopy. 2. Transurethral resection of bladder tumors approximately 3 cm. 3. Deep bladder biopsies of previous resection beds x 8. Anesthesia: GETA Primary Surgeon: Orestes Mobley Complications: None Estimated blood loss (mL): 5 Findings: Bladder tumor adjacent to prior resection bed on right lateral wall Specimens: 1. 8 biopsies from prior resection beds. 2. Bladder tumor Drains: 20 Mongolian two-way Howe catheter to gravity Indications for Procedures: This gentleman recently had a TURBT a couple weeks ago. Pathology was high- grade with no identifiable muscle in the specimen. He now presents for a reresection of the tumor beds. He has signed an informed consent after risks were explained. Detailed description of Procedure: The patient was brought to the operating room and placed on the operating room table in the supine position. SCDs were placed on the lower extremities and turned on and functioning during the entire case. Timeout was done by all parties in the room. We all agreed upon the patient's identification and the planned procedures for this patient. Genn. anesthesia was then administered. The patient was then repositioned into the modified dorsal lithotomy position. All pressure points were satisfactorily padded. Genitalia were sterilely prepped and draped in usual fashion. I started by passing a 26 Mongolian Olympus resectoscope with a standard bipolar loop electrode per urethra and into the bladder. Careful panendoscopy revealed the prior resection beds. There was some new tumor adjacent to the right sided resection bed. I identified the right ureteral orifice and this tumor was a fair distance away from it towards the bladder neck. I then uniformly and deeply resected this tumor. This was removed with the Ilich and sent for permanent sections labeled bladder tumor. The resection bed was fulgurated. I then elected to use a flexible biopsy forcep to get deeper within the resection beds versus using the resectoscope due to the very thin wall of this nearly 89-year-old man and the fact that I previously resected very deeply. The scope was removed. A 22 Mongolian scope was passed and a flexible biopsy forcep was used. I took 4 biopsies extremely deeply from each of the 2 previous resection beds. With 100% certainty I obtained muscle again. The 8 biopsies were sent in formalin labeled bladder biopsies from resection beds. I then repassed the resectoscope and coagulated all of the biopsy sites. Upon completion, clear urine was effluxing from the ureteral orifices. There was no bleeding. No other tumors were identifiable throughout the bladder. The scope was removed. I then placed a 20 Mongolian two- way Howe catheter in the bladder. It was irrigated to verify correct placement. 10 cc of fluid was placed in the balloon. It drained clearly. The anesthetic was then reversed. He was then transferred to a [facility] bed and wheeled to PACU in stable condition.
[2024-02-21] MEDS: ACETAMINOPHEN 500 MG TABLET 1000 MG PO (13:51)
== END 2024-02-21 14:45 | disposition home or self-care (01) ==
PROVIDERS: PCP Family Medicine; Visit Provider Urology
PROC: (CPT 52204; principal; 2024-02-21 10:45)
DX: C67.9 Malignant neoplasm of bladder, unspecified (principal); R31.0 Gross hematuria; N40.1 Benign prostatic hyperplasia with lower urinary tract symptoms; Z87.442 Personal history of urinary calculi; R97.20 Elevated prostate specific antigen [PSA]; E78.5 Hyperlipidemia, unspecified; I10 Essential (primary) hypertension; I25.10 Atherosclerotic heart disease of native coronary artery without angina pectoris; I25.2 Old myocardial infarction; Z95.5 Presence of coronary angioplasty implant and graft; Z95.1 Presence of aortocoronary bypass graft; E03.9 Hypothyroidism, unspecified
CPT/HCPCS: 52204; 52234; 88305; J0690; J2704

== ENCOUNTER 2024-03-01 11:19 | Emergency (ER) | payer MEDICARE, OTHER, SELFPAY ==
--- OUTSIDE RECORDS SUMMARY | 2024-03-01 11:25 | XMS_ITS | CCD ---
Author Organization [facility] Care Team Providers Care Contracting Engineer Name Role Phone DAI SHARIFAB A Attending Unavailable ELTAHAWYADÁN Admitting Unavailable TUCKER MELVIN Referring Unavailable DOUGYTUCKER Primary Care Unavailable HOY [...] MEERA ., DR RODRIGUEZ Attending Unavailable MEERA Bagley, DR RODRIGUEZ Admitting Unavailable Gay Wheeler Consulting Unavailable TOYA, DR VALLEJO Consulting Unavailable Tucker Melvin Primary Care Physician REX FULLER Attending Unavailable Tucker Melvin Referring Unavailable JONNY, REX Jackson Attending Unavailable Tucker Melvin Referring Unavailable JONNY, REX Jackson Admitting Unavailable JONNY, REX Jackson Attending Unavailable ELTAHAWSachi, ADÁN Attending Unavailable ELTAHAWSachi, ADÁN Attending Unavailable VINH GUZMAN Attending Unavailable MD Orestes Mobley Attending Provider Mateo, Orestes Admitting Unavailable Mobley, Orestes Attending Unavailable Mobley, Orestes Admitting Unavailable Mobley, Orestes Attending Unavailable MOBLEY, Orestes Beckman Attending Unavailable MOBLEY, Orestes Beckman Attending Unavailable MOBLEY, Orestes Beckman Attending Unavailable Galea, Hamida Mayen Attending Unavailable MOBLEY, REYNALDO Attending Unavailable MOBLEY, Orestes Beckman Attending Unavailable MOBLEY, Orestes Beckman Attending Unavailable MOBLEY, Orestes Beckman Referring Unavailable MOBLEY, Orestes R Admitting Unavailable MOBLEY, Orestes R Admitting Unavailable MOBLEY, Orestes R Attending Unavailable Allergies Allergy Classification Reported Allergen(s) Allergy Type Date of Onset Reaction(s) Facility (2 sources) No Known Medication Allergies; Translations: [No Known Medication Allergies] Propensity to adverse reactions (disorder) [facility] Repository Medications Current Medications Medication Drug Class(es) Dates Sig (Normalized) Sig (Original) amLODIPine 2.5 mg oral tablet (7 sources) Dihydropyridine Calcium Channel Allyson Start: 12-25-2023 take 1 tablet by mouth once daily amLODIPine 2.5 mg Tab 2.5 mg = 1 tab(s), Oral, Daily Start Date: 12/25/23 Status: Ordered aspirin 81 mg oral tablet (7 sources) Platelet Aggregation Inhibitor, Nonsteroidal Anti-inflammatory Drug Start: 01-15-2019 take 1 mg by mouth once daily aspirin 81 mg oral tablet mg tab(s), Oral, Daily, Refills(s) 0 Start Date: 01/15/19 Status: Ordered carvedilol 3.125 mg oral tablet (7 sources) alpha-Adrenergic Allyson, beta-Adrenergic Allyson Start: 12-25-2023 take 2 tablets by mouth once daily carvedilol 3.125 mg Tab 6.25 mg = 2 tab(s), Oral, Daily Start Date: 12/25/23 Status: Ordered cephalexin 250 mg oral tablet (2 sources) Cephalosporin Antibacterial Start: 02-18-2024 End: 02-25-2024 take 1 capsule by mouth twice daily Keflex 250 mg Cap 250 mg = 1 cap(s), Oral, BID, X 1 week(s), # 14 cap(s), Refills(s) 0, Pharmacy: [facility]/pharmacy #[id number], 178, cm, 02/15/24 8:37:00 EDT, Height/Length Dosing, 73, kg, 02/15/24 8:37:00 EDT, Weight Dosing Start Date: 02/18/24 Stop Date: 02/25/24 Status: Ordered diclofenac sodium 50 mg delayed release oral tablet (7 sources) Nonsteroidal Anti-inflammatory Drug Start: 12-25-2023 take 1 tablet by mouth three times daily diclofenac sodium 50 mg Oral EC Tab 50 mg = 1 tab(s), Oral, TID Start Date: 12/25/23 Status: Ordered levothyroxine sodium 0.137 mg oral tablet (7 sources) l-Thyroxine Start: 12-25-2023 take 0.5 tablet by mouth once daily levothyroxine 137 mcg (0.137 mg) Tab 1/2 tab(s), Oral, Daily Start Date: 12/25/23 Status: Ordered Nitro 0.4 mg Tab (7 sources) Start: 01-15-2019 Nitro 0.4 mg Tab = 1 tab(s), SubLingual, q5min, PRN Chest pain Start Date: 01/15/19 Status: Ordered Psyllium (7 sources) Start: 12-25-2023 Metamucil Oral Start Date: 12/25/23 Status: Ordered rosuvastatin calcium 20 mg oral tablet (7 sources) HMG-CoA Reductase Inhibitor Start: 12-25-2023 take 1 tablet by mouth once daily rosuvastatin 20 mg Tab 20 mg = 1 tab(s), Oral, Daily Start Date: 12/25/23 Status: Ordered tamsulosin hydrochloride 0.4 mg oral capsule (7 sources) alpha-Adrenergic Allsyon Start: 12-25-2023 take 1 capsule by mouth once daily tamsulosin 0.4 mg Cap 0.4 mg = 1 cap(s), Oral, Daily Start Date: 12/25/23 Status: Ordered vitamin B12 (7 sources) Vitamin B12 Start: 01-15-2019 Vitamin B12 See Instructions Start Date: 01/15/19 Status: Ordered Completed/Discontinued Medications Medication Drug Class(es) Dates Sig (Normalized) Sig (Original) cholecalciferol 0.05 mg oral capsule (7 sources) Vitamin D Start: 01-15-2019 take 1 [...] # 2 tab(s), Refills(s) 0, Pharmacy: [facility]/pharmacy #[id number], 178, cm, 12/25/23 8:48:00 EDT, Height/Length Dosing, 73, kg, 12/25/23 8:48:00 EDT, Weight Dosing Start Date: 12/25/23 Status: Ordered 24 hr isosorbide mononitrate 30 mg extended release oral tablet (7 sources) Nitrate Vasodilator Start: 01-15-2019 take 1 tablet by mouth once daily in the morning isosorbide mononitrate 30 mg ER Tab 1/2 tab, Oral, qAM Start Date: 01/15/19 Status: Ordered Problems Active Problems Problem Classification Problem Date Documented Da te Episodic/Chronic Abdominal hernia (7 sources) Right inguinal hernia 01-15-2019 Episodic Abdominal pain (7 sources) Right inguinal pain 04-15-2019 Episodic Calculus of urinary tract (9 sources) Kidney stone; Translations: [Calculus of kidney] Onset: 12-25-2023 Episodic Cancer of bladder (4 sources) Malignant tumor of urinary bladder; Translations: [Malignant neoplasm of bladder, unspecified] Onset: 02-15-2024 Chronic Cardiac dysrhythmias (1 source) Ventricular tachycardia; Translations: [VENTRICULAR TACHYCARDIA] Onset: 12-21-2021 Chronic Conduction disorders (7 sources) Right bundle branch block 01-15-2019 Chronic Coronary atherosclerosis and other heart disease (20 sources) Atherosclerotic heart disease of chilkoot coronary artery without angina pectoris; Translations: [Angina pectoris, unspecified] Onset: 12-20-2021 Chronic Coronary atherosclerosis and other heart disease (2 sources) Presence of aortocoronary bypass graft; Translations: [Presence of aortocoronary bypass graft] Onset: 08-11-2022 Episodic Disorders of lipid metabolism (20 sources) Pure hypercholesterolemia, unspecified; Translations: [Hypercholesterolemia ] Onset: 12-21-2021 Chronic Essential hypertension (9 sources) Hypertensive disorder; Translations: [Essential (primary) hypertension] Onset: 08-11-2022 01-15-2019 Chronic Genitourinary symptoms and ill-defined conditions (19 sources) Blood in urine; Translations: [Gross hematuria] Onset: 12-25-2023 Episodic Heart valve disorders (1 source) Rheumatic tricuspid insufficiency; 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 TRICUSPID INSUFFICIENCY] Onset: 12-22-2021 Chronic Hyperplasia of prostate (17 sources) Benign prostatic hypertrophy with outflow obstruction; Translations: [Benign prostatic hyperplasia with lower urinary tract symptoms] Onset: 12-25-2023 Chronic Other diseases of bladder and urethra (1 source) Disorder of bladder; Translations: [Other specified disorders of bladder] Onset: 12-25-2023 Chronic Other ear and sense organ disorders (7 sources) Hearing loss 12-25-2023 Chronic Other fractures (4 sources) Collapsed vertebra, not elsewhere classified, lumbosacral region, initial encounter for fracture; Translations: [COLLAPSED VERT NEC LS RGN INIT ENC] Onset: 05-22-2022 Episodic Other gastrointestinal disorders (1 source) Constipation, unspecified; Translations: [CONSTIPATION UNSPECIFIED] Onset: 07-31-2022 Episodic Other screening for suspected conditions (not mental disorders or infectious disease) (10 sources) Encounter for screening for malignant neoplasm [...] THOR SUB] Onset: 05-14-2022 Episodic Thyroid disorders (7 sources) Hypothyroidism 01-15-2019 Chronic Unclassified (1 source) CONTACT W/AND (SUSP) EXPOS COVID-19; Translations: [CONTACT W/AND (SUSP) EXPOS COVID-19] Onset: 12-27-2021 Past or Other Problems Problem Classification Problem Date Documented Da te Episodic/Chronic Other aftercare (1 source) Other snf (current) drug therapy; Translations: [OTH FPC CURRENT DRUG THERAPY] Onset: 12-27-2021 Episodic Results Test Name Value Interpretation Reference Range Facility [facility] 02-21-2024 L Specimen: [id number] Received: 02/22/24 Status: GIL Luciano Num: [id number] Spec Type: Surgical Subm Dr: Orestes Mobley MD Tissues: A Urinary Bladder - biopsy (BLADDER BX TUMOR BED) B Urinary Bladder - biopsy (BLADDER TUMOR) Procedures: HE/4, Gross/Micro L4/2 Age/ Patient Sex Location Account Attending Physician Kingsley Naranjo 88/M LABELL [id number] Orestes Mobley MD SPEC NUM: [id number] RECD: 02/22/24 STATUS: GIL LUCIANO NUM: [id number] TANNER: 02/21/[address]: Orestes Mobley MD ENTERED: 02/22/24 [facility] DR: Isaiah Cleaning SPEC TYPE: Surgical DEPT: COLIN MENDOZA ENTERED BY: [id number] RECV BY: [id number] ORDERED: HE/4, Gross/Micro L4/2 ORDERED: HE/4, Gross/Micro L4/2 Pathological Diagnosis A. Bladder biopsies from prior resection of tumor bed: Fragments of urinary bladder wall with ulceration granulation tissue hemorrhage and fibrosis consistent with previous resection site. No evidence of residual transitional cell carcinoma is identified B. Bladder tumor: Papillary transitional cell carcinoma urinary bladder, well-differentiated type, confined to the mucosa and fragments of urinary bladder wall with focal superficial necrosis and acute inflammatio< granulation tissue hemorrhage and blood clots. No evidence of lamina propria or muscle invasion is identified Clinical Information Bladder cancer Gross Description Part a received in formalin with the patient's name and bladder biopsies from prior resection tumor bed and consists of multiple lowe-white soft tissue fragments measuring 1.5 x 0.5 x 0.3 cm in aggregate. The specimen is filtered and entirely submitted in cassette A1. Part B received in formalin with the patient's name and bladder tumor and consists of multiple lowe hemorrhagic soft tissue fragments measuring 1.5 x 0.7 x 0.3 cm in aggregate. The specimen is filtered entirely submitted cassette B1. ---- Specimen: [id number] Received: 02/22/24 Status: GIL Luciano Num: [id number] Spec Type: Surgical Subm Dr: Orestes Mobley MD Tissues: A Urinary Bladder - biopsy (BLADDER BX TUMOR BED) B Urinary Bladder - biopsy (BLADDER TUMOR) Procedures: HE/Carmelo, Gross/Micro L4/2 ---- Patient: Kingsley Naranjo [id number] (Continued) ---- Specimen: [id number] Received: 02/22/24 (Continued) Signed (signature on file) Hunter Benavides MD 02/26/24 1213 ---- Specimen: [id number] Received: 02/22/24 Status: GIL Luciano Num: [id number] Spec Type: Surgical Subm Dr: Orestes Mobley MD Tissues: A Urinary Bladder - biopsy (BLADDER BX TUMOR BED) B Urinary Bladder - biopsy (BLADDER TUMOR) Procedures: HE/Carmelo, Gross/Micro L4/2 ---- Patient: Kingsley Naranjo [id number] (Continued) ---- Specimen: [id number] Received: 02/22/24 (Continued) CPT Codes 88 305 x 2 ---- ---- Specimen: [id number] Received: 02/22/24 Status: GIL Luciano Num: [id number] Spec Type: Surgical Subm Dr: Orestes Mobley MD Tissues: A Urinary Bladder - biopsy (BLADDER BX TUMOR BED) B Urinary Bladder - biopsy (BLADDER TUMOR) Procedures: Abiola MAZARIEGOS/Mona L4/2 ---- Patient: Kingsley Naranjo [id number] (Continued) ---- Signed (signature on file) Hunter Benavides MD 02/26/24 8813 [facility] C Urineon 02-20-2024 Bacteria identified Cx Nom (U) Microbiology PROCEDURE: Urine Culture [R1] SOURCE: U Random BODY SITE: COLLECTED DATE/TIME: 02/18/2024 10:53 EDT RECEIVED DATE/TIME: 02/18/2024 18:47 EDT START DATE/TIME: 02/18/2024 18:47 EDT FREE TEXT SOURCE: MATEO DICK, Orestes MOBLEY MD, Orestes Beckman FINAL REPORTS Final Report [] Verified Date/Time: 02/20/2024 13:02 EDT 200 cfu/ml Mixed skin contaminants Performing Locations R1: This test was performed at: [facility], [address] [place] [address], [phone] , [place], Normal [facility] Comment on above: Performed By: #### 2 [id number] #### [facility] [address] [place] [address] Ambulatory Visit Summaryon 1 Ambulatory Visit Summary [...] DICK, Orestes Beckman Where: [facility] [address] [address]- Medications What How Much When Instructions Unchanged [...] you for choosing us for your care. 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 monument mason. Results reviewed with pt and his son in detail. Called and spoke with [facility] pathologist. Reviewed pathology slides and he confirmed [...] BPH w (more content not included)... Normal [facility] Comment on above: Result Comment: Elec tronically Signed By: Orestes MOBLEY MD\.br\Date and Time Signed: 02/15/24 09:23 EDT\.br\Electronically Co-Signed By: Kate Seth\.br\Date and Time Co-Signed: 02/15/24 09:16 EDT Bryce 02-07-2024 L Specimen: [id number] Received: 02/08/24 Status: GIL Luciano Num: [id number] Spec Type: Surgical Subm Dr: Orestes Mobley MD Tissues: A Urinary Bladder - biopsy (BLADDER TUMOR) Procedures: HE/2, Gross/Micro L4 Age/ Patient Sex Location Account Attending Physician Kingsley Naranjo 88/M LABELL [id number] Orestes Mobley MD SPEC NUM: [id number] RECD: 02/08/24 STATUS: GIL LUCIANO NUM: [id number] TANNER: 02/07/24-[address]: Orestes Mobley MD ENTERED: 02/08/[address] [facility] [address]: Isaiah Cleaning SPEC TYPE: Surgical DEPT: COLIN MENDOZA ENTERED BY: [id number] RECV BY: [id number] ORDERED: HE/2, Gross/Micro L4 ORDERED: HE2, Gross/Micro L4 Pathological Diagnosis Urinary bladder tumor, TURBT -Multiple fragments of high-grade papillary urothelial carcinoma without obvious stromal invasion (monument mason, see note) Note: -The overall tumor grade [...] entirely submitted in cassette A1. ---- Specimen: [id number] Received: 02/08/24 Status: GIL Briggsanil Num: [id number] Spec Type: Surgical Subm Dr: Orestes Mobley MD Tissues: A Urinary Bladder - biopsy (BLADDER TUMOR) Procedures: /2, Gross/Micro L4 ---- Patient: Kingsley Naranjo [id number] (Continued) ---- Specimen: [id number] Received: 02/08/24 (Continued) Signed (signature on file) Philomena Busch MD 02/11/24 1728 ---- Specimen: [id number] Received: 02/08/24 Status: GIL Luciano Num: [id number] Spec Type: Surgical Subm Dr: Orestes Mobley MD Tissues: A Urinary Bladder - biopsy (BLADDER TUMOR) Procedures: Abiola MCKEON/Mona L4 ---- Patient: Kingsley Narajno [id number] (Continued) ---- Specimen: [id number] Received: 02/08/24 (Continued) Microscopic Description Microscopic examinations are performed supporting the above interpretation CPT Codes 15467 ---- ---- Specimen: [id number] Received: 02/08/24 Status: GIL Luciano Num: [id number] Spec Type: Surgical Subm Dr: Orestes Mobley MD Tissues: A Urinary Bladder - biopsy (BLADDER TUMOR) Procedures: HE/Kan, Gross/Micro L4 ---- Patient: Kingsley Naranjo [id number] (Continued) ---- Signed (signature on file) Philomena Busch MD 02/11/24 1728 Normal [facility] Office Visiton 01-28-2024 Follow-up visit [id number] Fernie Naranjo 1935 M Date Provider Department Center 01/28/2024 Niurka-VINH GUZMAN [facility] No family history on file Level of Service:30421 IN OFFICE/OUTPATIENT ESTABLISHED MOD MDM 30 MIN Normal [facility] Main OR Intraoperative Recor don 01-15-2024 Main OR Intraoperative Record Main OR Intraoperative Record IntraOp Document Type FTURO Summary Primary Physician: Orestes MOBLEY MD Finalized Date/Time: 01/15/24 11:19:04 Pt. Name: KINGSLEY NARANJO.O.B./Sex: 1935 Male Med Rec #: [id number] Physician: Orestes MOBLEY MD Financial #: [id number] Pt. Type: O Room/Bed: / Admit/Disch: 01/15/24 [...] Deborah Rodríguez Role Performed Surgeon - Primary Loading Unit Operator Seating - Primary Scrub - Primary Time In [...] By: Luanne Hoffman RN 01/15/24 11:19 Normal [facility] Main OR Preoperative Recordo n 01-15-2024 Main OR Preoperative Record Main OR Preoperative Record Holding Area Document Type FTURO Summary Primary Physician: Orestes MOBLEY MD Finalized Date/Time: 01/15/24 10:31:41 Pt. Name: KINGSLEY NARANJO D.O.B./Sex: 1935 Male Med Rec #: [id number] Physician: Orestes MOBLEY MD Financial #: [id number] Pt. Type: O Room/Bed: / Admit/Disch: 01/15/24 [...] Complaints of Pain: No Skin Integrity Intact, Currie, Warm, & Dry Vitals - EU Blood Pressure 126/73 Pulse 80 bpm Respirations 18 br/min SPO2 Additional None Specimens Collected Last Modified By: Mari Estrella LPN 01/15/24 10:31:36 Finalized By: Mari Estrella LPN Document Signatures Signed By: Mari Estrella LPN 01/15/24 10:31 Normal [facility] Operative Reporton Operative Report Operative Report [...] for cystoscopy and TURBT under anesthesia.. Normal [facility] Comment on above: Result Comment: Elec tronically Signed By: MATEO DICK, Orestes Puente\Date and Time Signed: 01/15/24 11:16 EDT Urine Cytology ([facility])on 12-30-2023 Microscopic exam Cytology (U) [Interp] Diagnosis Info Invalid Interpretation Code [facility] Comment on above: Result Comment: A:Ur [...] on: 12/30/2023 11:24:24 Performed By: #### 1 [id number] #### [facility] [address] [place] [address] Ambulatory Visit Summaryon 12-25-2023 Ambulatory Visit Summary [...] BATEMAN, ZELDA KIM When: Where: [address] [facility] [place] [address] [id number] Medications What How Much When Instructions Unchanged [...] ? Un (more content not included)... Normal [facility] Ambulatory Visit Summary Ambulatory Visit Summary KINGSLEY NARANJO Shahrzad :1935 Visit Date:12/25/2023 Ambulatory Visit Instructions Your [...] REX FULLER PA-C, URL When: Where: [address] [facility] [place] [phone] Medications What How Much When Instructions Unchanged [...] ? Un (more content not included)... Normal [facility] Urine Cytology ([facility])on 12-25-2023 Method of Extraction Voided Normal [facility] Comment on above: Performed By: #### 1 [id number] #### [facility] [address] Number of Jars 1 Invalid Interpretation Code [facility] Comment on above: Performed By: #### 1 [id number] #### [facility] [address] Specimen Urine Normal [facility] Comment on above: Performed By: #### 1 [id number] #### [facility] [address] Type of Service Technical Only Normal [facility] Comment on above: Performed By: #### 1 [id number] #### [facility] [address] [place] [address] Urology Office/Clinic Noteon 12-25-2023 Urology Office/Clinic Note [...] may act (more content not included)... Normal [facility] Comment on above: Result Comment: Elec tronically Signed By: REX FULLER PA-C\.br\Date and Time Signed: 12/25/23 09:32 EDT\.br\Electronically Co-Signed By: Hortencia Thomas\.br\Date and Time Co-Signed: 12/25/23 09:24 EDT Office Visiton 08-08-2023 Follow-up visit [id number] Fernie Naranjo 1935 M Date Provider Department Center 08/08/2023 [facility] No family history on file Level of Service:38818 IN OFFICE/OUTPATIENT ESTABLISHED LOW MDM 20 MIN Normal [facility] Office Visiton 02-06-2023 Follow-up visit [id number] Fernie Naranjo 1935 M Date Provider Department Center 02/06/2023 [address], [facility] No family history on file Level of Service:43176 IN OFFICE/OUTPATIENT ESTABLISHED LOW MDM 20-29 MIN Normal [facility] OCC BLD IMMUNO SCREENon - OCCULT BLOOD Negative Normal NEGATIVE [facility] Comment on above: Performed By: #### O BSCRN #### [facility] [address] [address] [address] Gricel Busch MRI LSPINE WO CONon [...] GAY WHEELER Date: 2022-06-09 09:46 Normal [facility] CT TSPINE WO CONon 2 CT [...] by: MACY MICHAEL Date: 2022-01-05 16:34 Normal [facility] CBC COMPLETE BLOOD COUNTon 0 12-29-2021 Erythrocyte distribution width (RBC) [Ratio] 13.4 % Normal 11.5-15.0 [facility] Comment on above: Order Comment: No: D o not add to previous draw Performed By: #### 5 [id number] #### [facility] [address] [place] [address], [facility] Hematocrit (Bld) [Volume fraction] 38.5 % Low 39.0-50.0 [facility] Comment on above: Order Comment: No: D o not add to previous draw Performed By: #### 5 [id number] #### [facility] [address] [place] [address], [facility] Hemoglobin (Bld) [Mass/Vol] 13.5 g/dL Normal 13.0-17.0 [facility] Comment on above: Order Comment: No: D o not add to previous draw Performed By: #### 5 0608 #### [facility] [address] [facility] [address], [facility] MCH (RBC) [Entitic mass] 32.4 pg Normal 27.0-33.0 [facility] Comment on above: Order Comment: No: D o not add to previous draw Performed By: #### 5 0608 #### [facility] [address] [place] [id number], [facility] MCHC (RBC) [Mass/Vol] 35.1 g/dL High 32.0-35.0 [facility] Comment on above: Order Comment: No: D o not add to previous draw Performed By: #### 5 0608 #### [facility] [address] [place] [address], [facility] MCV (RBC) [Entitic vol] 92.3 fL Normal 82.0-98.0 [facility] Comment on above: Order Comment: No: D o not add to previous draw Performed By: #### 5 0608 #### [facility] [address] [place] [address], [facility] Nucleated RBC/100 WBC (Bld) [Ratio] 0 % Normal 0-0 [facility] Comment on above: Order Comment: No: D o not add to previous draw Performed By: #### 5 0608 #### [facility] [address] [place] [address], [facility] PLAT CNT 165 10*3/uL Normal 150-400 [facility] Comment on above: Order Comment: No: D o not add to previous draw Performed By: #### 5 0608 #### [facility] [address] [facility] [place] [address], [facility] RBC (Bld) [#/Vol] 4.17 10*6/uL Low 4.20-5.70 [facility] Comment on above: Order Comment: No: D o not add to previous draw Performed By: #### 5 0608 #### [facility] [address] [facility] [place] [address], [facility] WBC (Bld) [#/Vol] 8.33 10*3/uL Normal 4.00-10.60 [facility] Comment on above: Order Comment: No: D o not add to previous draw Performed By: #### 5 [id number] #### [facility] [address] [place] [address], [facility] CREATININE BLOODon 2 Creatinine [Mass/Vol] 0.82 mg/dL Normal 0.70-1.30 [facility] Comment on above: Order Comment: No: D o not add to previous draw Performed By: #### 2 [id number] #### [facility] [address] GFR/1.73 sq M.predicted among non-blacks MDRD (S/P/Bld) [Vol rate/Area] mL/min/{1.73_m2} Normal >60 [facility] Comment on above: Order Comment: No: D o not add to previous draw Result Comment: [facility]'s estimated glomerular filtration rate (eGFR) will [...] individuals. Performed By: #### 2 [id number] #### [facility] [address] Cardiovascular Lab Reporton 12-29-2021 Cardiovascular Lab Report [facility] Patient Name: Marcella [facility] D MR #: [id number] Department of Physician: Adeline Carlos M.D. Division of Service Date: 12/28/2021 Cardiology Birthdate: 1935 Adult Cardiovascular Room #: 3AB [id number] [facility] [address] [address] Cardiovascular Laboratory Report FINAL IMPRESSIONS: 1. 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 Sharif in the [place] office in the next 2-4 weeks. 7. Follow up with Dr. Melvni as scheduled. PROCEDURES: Ultrasound-guided access to the right common femoral artery, limited femoral angiography, bilateral selective coronary angiography, angiography of internal mammary artery graft, angiography of the saphenous vein graft, placement of a 6-Croatian MynxGrip closure device. METHODS: After risks, benefits, [...] was performed. This was upsized to a 6-Croatian 11 cm sheath. Bilateral selective coronary angiography [...] the procedure. All catheters were removed. A 6-Croatian MynxGrip closure device was deployed per protocol [...] marginals. Distal filling is seen into the chilkoot obtuse marginal via saphenous vein graft. Just [...] patent (more content not included)... Normal [facility] TROPONIN-Ion 12-28-2021 Troponin I.cardiac [Mass/Vol] 0.09 ng/mL High 0.00-0.04 [facility] Comment on above: Order Comment: No: D o not add to previous draw Result Comment: REFE RENCE RANGES: 0.00 - 0.04 ng/ml NORMAL 0.05 - 0.50 ng/ml INDETERMINATE > 0.50 ng/ml CONSISTENT WITH AN M.I. Performed By: #### 3 [id number] #### [facility] [address] [place] [address], [facility] CBC AUTO DIFFon 12-26-2021 BASO # 0.0 103/ul Normal 0.0-0.1 [facility] Comment on above: Performed By: #### C BC #### [facility] [address] [address] [address] Gricel Busch Basophils/100 WBC (Bld) 0.6 % Normal 0.2-2.0 [facility] Comment on above: Performed By: #### C BC #### [facility] [address] [place] [address] Dr. Gricel Busch EO # 0.1 103/ul Normal 0.0-0.7 [facility] Comment on above: Performed By: #### C BC #### [facility] [address] [place] [address] Dr. Gricel Busch Eosinophils/100 WBC (Bld) 1.8 % Normal 0.9-7.0 [facility] Comment on above: Performed By: #### C BC #### [facility] [address] [place] [address] Dr. Gricel Busch Erythrocyte distribution width (RBC) [Ratio] 13.1 % Normal 11.0-15.0 [facility] Comment on above: Performed By: #### C BC #### [facility] [address] [place] [address] Dr. Gricel Busch Hematocrit (Bld) [Volume fraction] 42.4 % Normal 42.0-54.0 [facility] Comment on above: Performed By: #### C BC #### [facility] [address] [place] [address] Dr. Gricel Busch Hemoglobin (Bld) [Mass/Vol] 13.9 g/dL Critically low 14.0-18.0 [facility] Comment on above: Performed By: #### C BC #### [facility] [address] [place] [address] Dr. Gricel Busch IG # 0.03 10e3/ul Normal 0.00-0.03 [facility] Comment on above: Performed By: #### C BC #### [facility] [address] [place] [address] Dr. Gricel Busch IG % 0.4 % Normal 0.0-0.5 [facility] Comment on above: Performed By: #### C BC #### [facility] [address] [place] [address] Dr. Gricel Busch LYMPH # 1.2 103/ul Normal 1.2-3.8 [facility] Comment on above: Performed By: #### C BC #### [facility] [address] [place] [address] Dr. Gricel Busch Lymphocytes/100 WBC (Bld) 16.9 % Critically low 20.5-60.0 [facility] Comment on above: Performed By: #### C BC #### [facility] [address] [place] [address] Dr. Gricel Busch MANUAL DIFF REQ NO Normal [facility] Comment on above: Performed By: #### C BC #### [facility] [address] [place] [address] Dr. Gricel Busch MCH (RBC) [Entitic mass] 31.3 pg Normal 25.9-34.0 [facility] Comment on above: Performed By: #### C BC #### [facility] [address] [place] [address] Dr. Gricel Busch MCHC (RBC) [Mass/Vol] 32.8 g/dL Normal 29.9-35.2 [facility] Comment on above: Performed By: #### C BC #### [facility] [address] [place] [address] Dr. Gricel Busch MCV (RBC) [Entitic vol] 95.5 fL Critically high 80.0-94.0 [facility] Comment on above: Performed By: #### C BC #### [facility] [address] [place] [address] Dr. Gricel Busch MONO # 0.8 103/ul Normal 0.3-0.8 [facility] Comment on above: Performed By: #### C BC #### [facility] [address] [place] [address] Dr. Gricel Busch Monocytes/100 WBC (Bld) 10.9 % Normal 1.7-12.0 [facility] Comment on above: Performed By: #### C BC #### [facility] [address] [place] [address] Dr. Gricel Busch NEUT # 4.9 103/ul Normal 1.4-6.5 [facility] Comment on above: Performed By: #### C BC #### [facility] [address] [place] [address] Dr. Gricel Busch Neutrophils/100 WBC (Bld) 69.4 % Normal 43.0-75.0 [facility] Comment on above: Performed By: #### C BC #### [facility] [address] [place] [address] Dr. Gricel Busch Platelet mean volume (Bld) [Entitic vol] 9.6 fL Normal 9.5-13.5 [facility] Comment on above: Performed By: #### C BC #### [facility] [address] [place] [address] Dr. Gricel Busch PLT 191 103/ul Normal 150-450 [facility] Comment on above: Performed By: #### C BC #### [facility] [address] [place] [address] Dr. Gricel Busch RBC 4.44 106/ul Critically low 4.70-6.10 [facility] Comment on above: Performed By: #### C BC #### [facility] [address] [place], [place] [id number] Dr. Gricel Busch WBC 7.1 103/ul Normal 4.0-11.0 [facility] Comment on above: Performed By: #### C BC #### [facility] [address] [place] [address] Dr. Gricel Busch Covid-19 PCR (CVDTB)on 12-12 SARS-CoV-2 (COVID-19) RNA NIR+probe Ql (Unsp spec) Not detected Normal NOT DETECTED [facility] Comment on above: Result Comment: This test is not yet approved or cleared by the [place] FDA. When there are no FDA-approved or cleared tests available, and other criteria are met, FDA can make tests available under an emergency access mechanism called an Emergency Use Authorization (EUA). The EUA for this test is supported by the [employer] of Health and Human Service's (HHS's) declaration [...] SARS-CoV-2. Performed By: #### C VDTB #### [facility] [address] [place] [address] Dr. Gricel Busch PROF CHEM 8 (BAS METB)on Anion gap [Moles/Vol] 9.6 mmol/L Normal [facility] Comment on above: Performed By: #### B MP #### [facility] [address] [place] [address] Dr. Gricel Busch Calcium [Mass/Vol] 9.8 mg/dL Normal 8.5-10.1 [facility] Comment on above: Performed By: #### B MP #### [facility] [address] [place] [address] Dr. Gricel Busch Chloride [Moles/Vol] 102 mmol/L Normal 98-107 [facility] Comment on above: Performed By: #### B MP #### [facility] [address] [place] [address] Dr. Gricel Busch CO2 [Moles/Vol] 28.1 mmol/L Normal 21.0-32.0 [facility] Comment on above: Performed By: #### B MP #### [facility] [address] [place] [address] Dr. Gricel Busch Creatinine [Mass/Vol] 0.88 mg/dL Normal 0.70-1.30 [facility] Comment on above: Performed By: #### B MP #### [facility] [address] [place] [address] Dr. Gricel Busch EGFR-AF [place] >60 Normal >=60 [facility] Comment on above: Performed By: #### B MP #### [facility] [address] [address] [address] Gricel Busch EGFR-NON AF [place] >60 Normal >=60 [facility] Comment on above: Performed By: #### B MP #### [facility] [address] [address] [address] Gricel Busch Glucose [Mass/Vol] 101 mg/dL Normal 74-106 [facility] Comment on above: Performed By: #### B MP #### [facility] [address] [address] [address] Gricel Busch Potassium [Moles/Vol] 4.7 mmol/L Normal 3.5-5.1 [facility] Comment on above: Performed By: #### B MP #### [facility] [address] [address] [address] Gricel Busch Sodium [Moles/Vol] 135 mmol/L Critically low 136-145 [facility] Comment on above: Performed By: #### B MP #### [facility] [address] [address] [address] Gricel Busch Urea nitrogen [Mass/Vol] 12.0 mg/dL Normal 7.0-18.0 [facility] Comment on above: Performed By: #### B MP #### [facility] [address] [address] [address] Gricel Busch Urea nitrogen/Creatinin e [Mass ratio] 13.6 mg/mg Normal [facility] Comment on above: Performed By: #### B MP #### [facility] [address] [address] [address] Gricel Busch ECHOCARDIO M/2D COMPLETEon 0 12-21-2021 ECHOCARDIO M/2D COMPLETE Patient: JAMSHID NARANJOBRI Almaraz Exam Date: 12/21/2021 : 1935 Gender:M Ordering : DR TUCKER MELVIN . Admission #: [id number] Family : Order #: [id number] CLICK HERE TO VIEW EXAM ECHOCARDIOGRAM REPORT [...] on 12/21/2021 at 19:28 Normal [facility] STRESS/REST MULTIon 12-20 [place] STRESS/REST MULTI Patient: KINGSLEY NARANJO Exam Date: 12/20/2021 : 1935 Gender:M Ordering : DR TUCKER MELVIN . Admission #: [id number] Family : Order #: [id number] CLICK HERE TO VIEW EXAM RADIOLOGY REPORT [...] Wheeler MD on 12/20/2021 at 14:18 Normal [facility] Vital Signs Date Time Vital Sign Value Performing Clinician Facility 02-15-2024 08:29-0400 Blood Pressure Location Orestes MOBLEY [facility] 02-15-2024 08:29-0400 Body temperature 98.6 [degF] Orestes MOBLEY [facility] 02-15-2024 08:29-0400 Diastolic blood pressure 73 mm[Hg] Orestes MOBLEY [facility] 02-15-2024 08:29-0400 Heart rate 62 /min Orestes MOBLEY [facility] 02-15-2024 08:29-0400 Respiratory rate 16 /min Orestes MOBLEY [facility] 02-15-2024 08:29-0400 Systolic blood pressure 129 mm[Hg] Orestes MOBLEY [facility] 12-25-2023 08:38-0400 Body temperature 97.88 [degF] REX FULLER [facility] 12-25-2023 08:38-0400 Diastolic blood pressure 82 mm[Hg] REX JONNY [facility] 12-25-2023 08:38-0400 Heart rate 58 /min REX FULLER [facility] 12-25-2023 08:38-0400 Respiratory rate 16 /min REX FULLER [facility] 12-25-2023 08:38-0400 Systolic blood pressure 150 mm[Hg] REX FULLER [facility] Encounters Encounter Date Encounter Type Care Provider Facility Start: 02-29-2024 ambulatory Orestes Turpin ty:[facility] Start: 02-21-2024 End: 02-21-2024 ambulatory Orestes Mobley [facility] Work Phone: Start: 02-21-2024 End: 02-21-2024 Departed Referred MD Orestes Mobley Work Phone: [facility] Start: 02-21-2024 ambulatory Orestes Espinozai ty:[id number] Start: 02-18-2024 End: 02-18-2024 Lab Drop off Orestes MOBLEY [facility] Start: 02-18-2024 End: 02-18-2024 ambulatory Orestes MOBLEY Facility:[facility] Start: 02-18-2024 End: 02-18-2024 Patient encounter procedure REYNALDO MOBLEY [facility] Start: 02-15-2024 End: 02-15-2024 ambulatory Orestes MOBLEY Facility:[facility] Start: 02-15-2024 End: 02-15-2024 Patient encounter procedure Orestes MOBLEY [facility] Start: 02-07-2024 End: 02-07-2024 ambulatory Orestes Mobley Facility:[facility] Start: 02-07-2024 End: 02-07-2024 Departed Referred MD Orestes Mobley Work Phone: [facility] Start: 02-07-2024 End: 02-07-2024 ambulatory Orestes MOBLEY Facility:[id number] Start: 01-28-2024 End: 01-28-2024 ambulatory [facility] Start: 01-28-2024 End: 01-28-2024 Encounter for preprocedural cardiovascular examination [facility] Start: 01-28-2024 Encounter for preprocedural cardiovascular examination [facility] Start: 01-24-2024 Non-patient / Non-visit MD Jolly Mobley Work Phone: [facility]: Start: 01-15-2024 End: 01-15-2024 ambulatory Orestes MOBLEY Facility:[facility] Start: 01-15-2024 End: 01-15-2024 Patient encounter procedure Orestes MOBLEY [facility] Start: 12-31-2023 End: 12-31-2023 ambulatory Hamida Sanz Facility:[facility] Start: 12-31-2023 End: 12-31-2023 Patient encounter procedure Hamida Faheem Mgwanda [facility] Start: 12-25-2023 End: 12-25-2023 ambulatory REX E JONNY Facility:[facility] Start: 12-25-2023 End: 12-25-2023 Lab Drop off REX E JONNY [facility] Start: 12-25-2023 End: 12-25-2023 ambulatory REX E JONNY Facility:[facility] Start: 12-25-2023 End: 12-25-2023 Patient encounter procedure REX E JONNY [facility] Start: 12-12-2023 ambulatory REX E JONNY Facili ty:[facility] Start: 11-29-2023 ambulatory REXMARY ANN ROCKRY Facility :[facility] Start: 08-08-2023 End: 08-08-2023 ambulatory [facility] Start: 07-25-2023 End: 07-25-2023 ambulatory Not Available Start: 07-12-2023 End: 07-12-2023 ambulatory Not Available Start: 02-06-2023 End: 02-06-2023 ambulatory [facility] Start: 07-28-2022 End: 07-28-2022 ambulatory [facility] [...] Start: 12-28-2021 End: 12-29-2021 ambulatory ADÁN SHARIF Facility:[facility] Start: 12-26-2021 End: 12-27-[address] ADÁN SHARIF Facility: Start: 12-21-2021 End: 12-22-[address] TUCKER MELVIN . Facility:[facility] Start: 12-20-2021 End: 12-21-[address] TUCKER MELVIN . Facility: Procedures Date Procedure Procedure Detail Performing Clinician Start: 02-07-2024 Transurethral resect ion of bladder neoplasm Orestes MOBLEY Start: 01-15-2024 Cystoscopy Orestes SARABIA Start: 06-30-2009 Colonoscopy REX SÁNCHEZ Cardiac catheterization JOSE ROCKRY Coronary angioplasty JOHNSON FULLER Repair of inguinal hernia TRUNG ROCKRY Comment on above: left Immunizations Immunization Date Immunization Notes Care Provider [facility] 03-26-2023 influenza virus vaccine, unspecified formulation REX FULLER [facility] 09-16-2021 SARS-CoV-2 mRNA (biqyftcyner-ecdm-jobzw se) vaccine REX JONNY [facility] Comment on above: Result Comment: 2023: [id number] 02-24-2021 SARS-CoV-2 (COVID-19 ) mRNA BNT-162b2 vax REX JONNY [facility] Comment on above: Result Comment: 2023: [id number] 02-18-2021 influenza virus vaccine, unspecified formulation REX JONNY [facility] 06-30-2020 SARS-CoV-2 (COVID-19 ) mRNA BNT-162b2 vax REX JONNY [facility] 06-07-2020 SARS-CoV-2 (COVID-19 ) mRNA BNT-162b2 vax REX JONNY [facility] 04-05-2020 influenza virus vaccine, unspecified formulation REX JONNY [facility] 03-07-2019 influenza virus vaccine, unspecified formulation REX JONNY [facility] 04-13-2017 influenza virus vaccine, unspecified formulation REX JONNY [facility] 02-12-2017 influenza virus vaccine, unspecified formulation REX JONNY [facility] 11-13-2016 pneumococcal polysaccharide vaccine, 23 valent REX JONNY [facility] 02-12-2013 influenza virus vaccine, unspecified formulation REX JONNY [facility] 03-11-2003 pneumococcal polysaccharide vaccine, 23 valent REX JONNY [facility] NEGATED: Highlighted row has not occurred!02-21-2019 influenza virus vaccine, unspecified formulation REX JONNY [facility] Comment on above: Result Comment: Will obtain from primary care physician Payers Date Payer Category Payer Self-pay 1960 Medicare [id number] 1960 Private Health Insurance [id number] 1935 Unknown [id number] 2.16.840.1.664375.3.579.2 .647 1935 Unknown [id number] 2.16.840.1.514891.3.579.2 .593 1934 Unknown [id number] 2.16.840.1.596548.3.579.2 .593 1934 Unknown [id number] 2.16.840.1.017014.3.579.2 .593 1934 Unknown [id number] 2.16.840.1.452262.3.579.2 .593 1934 Unknown [id number] 2.16.840.1.716030.3.579.2 .593 1934 Unknown [id number] 2.16.840.1.700604.3.579.2 .593 1934 Unknown [id number] 2.16.840.1.560879.3.579.2 .593 1934 Unknown [id number] 2.16.840.1.852698.3.579.2 .593 1934 Unknown [id number] 2.16.840.1.797092.3.579.2 .593 1934 Unknown [id number] 2.16.840.1.256596.3.579.2 .593 1934 Unknown [id number] 2.16.840.1.488779.3.579.2 .1259 1934 Unknown [id number] 2.16.840.1.325612.3.579.2 .1259 1934 Unknown [id number] 2.16.840.1.102113.3.579.2 .727 1934 Unknown [id number] 2.16.840.1.584362.3.579.2 .727 1934 Unknown [id number] 2.16.840.1.203613.3.579.2 .1934 Unknown [id number] 2.16.840.1.201636.3.579.2 .1934 Unknown [id number] 2.16.840.1.991434.3.579.2 .72 1934 Unknown [id number] 2.16.840.1.471584.3.579.2 .72 1934 Unknown [id number] 2.16.840.1.352130.3.579.2 .1934 Unknown [id number] 2.16.840.1.224418.3.579.2 .1934 Unknown [id number] 2.16.840.1.637334.3.579.2 .1934 Unknown [id number] 2.16.840.1.629181.3.579.2 .1934 Unknown [id number] 2.16.840.1.167728.3.579.2 .727 Unknown [facility] [id number] Unknown [id number] 2.16.840.1.951592.3.579.2 .531 Unknown [id number] 2.16.840.1.501063.3.579.2 .531 Social History Date Type Detail Facility Start: 12-25-2023 End: 02-15-2024 Tobacco smoking status Never smoked tobacco (finding) [facility] Tobacco smoking status Never [facility] Sex Assigned At Male [facility] Start: 1935 Sex Assigned At Male [facility] Functional Status Date Assessment Result Facility 02-15-2024 Functional Status N/A [facility] 01-15-2024 Functional Status N/A [facility] 12-25-2023 Functional Status N/A [facility] Clinical Notes 12-30-2021 to 02-15-2024 Note Date & Type Note Facility 02-15-2024 Hospital Discharg e instructions Patient Education 02/15/2024 08:20:32 Bladder Cancer Bladder Cancer Bladder cancer is a condition [...] you more likely to develop this condition: Smoking. Working where there are risks (occupational exposures), such as working with rubber, leather, clothing fabric, dyes, chemicals, or paint. Being 55 years of age or older. Being male. Having long-term bladder inflammation. Having a history of cancer. This includes: ?A family history of bladder cancer. ?Having had bladder cancer before. ?Having had certain treatments for cancer before, such as: ?Medicines to kill cancer cells (chemotherapy). ?Strong X-ray beams or high-energy capsules to kill cancer cells and shrink tumors (radiation therapy). Having been exposed to arsenic. This is a poisonous substance. What are the signs or symptoms? Early symptoms of this condition include: Blood in your urine. Pain when urinating. Infections of your urinary system (urinary tract infections or UTIs) that happen often. Having to urinate sooner or more often than normal. Late symptoms of this condition include: Not being able to urinate. Pain on one side of your lower back. Loss of appetite. Weight loss. Tiredness (fatigue). Swelling in your feet. Bone pain. How is this diagnosed? This condition is diagnosed based on: Your medical history. A physical exam. Lab tests, such as urine tests. Imaging tests. Your symptoms. You may also have other tests or procedures, such as: A cystoscopy. This involves putting a narrow tube into your urethra. The urethra is the organ that carries urine from your bladder to the outside of your body. This procedure is done to view the lining of your bladder for tumors. A biopsy. This involves removing a tissue sample to look at under a microscope to check for cancer. Blood tests or imaging tests may be needed. These show how far into the bladder wall cancer has grown, and if cancer has spread to any other parts of your body. Tests may include: CT scan. MRI. Bone scan. X-ray. How is this treated? Your health care provider may recommend one or more types of treatment based on the stage of your cancer. The most common treatments are: Surgery to remove the cancer. Types of surgeries include: ?Removing a tumor on the inside wall of the bladder (transurethral resection). ?Removing the bladder (cystectomy). Radiation therapy. This is often combined with chemotherapy. Chemotherapy. Immunotherapy. This uses medicines to help your body's disease-fighting system (immune system) destroy cancer cells. Follow these instructions at home: Take gyhs-nrl-ndoxhdj and prescription medicines only as told by your health care provider. If you were prescribed an antibiotic medicine, take it as told by your health care provider. Do not stop using the antibiotic even if you start to feel better. Eat a healthy diet. Some treatments might affect your appetite. Do not use any products that contain nicotine or tobacco. These products include cigarettes, chewing tobacco, and vaping devices, such as e-cigarettes. If you need help quitting, ask your health care provider. Consider joining a support group. This may help you learn to deal with the stress of having bladder cancer. Tell your cancer care team if you develop side effects. Your team may be able to recommend ways to get relief. Keep all follow-up visits. This is important. Where to find more information [employer] (ACS): cancer.org National Cancer [employer] (NCI): cancer.gov Contact a health care provider if: You have symptoms of a UTI. These include: ?Fever. ?Chills. ?Weakness. ?Muscle aches. ?Pain in your abdomen. ?Urge to urinate that is stronger and happens more often than normal. ?Burning in the bladder or urethra when you urinate. Get help right away if: There is blood in your urine. You cannot urinate. You have severe pain or other symptoms that do not go away. Summary Bladder cancer is a condition where tumors grow in the bladder. Diagnosis is based on your medical history, a physical exam, lab tests, imaging tests, and your symptoms. Your health care provider may recommend one or more types of treatment based on the stage of your cancer. Consider joining a support group. This may help you learn to deal with the stress of having bladder cancer. This information is not intended to replace advice given to you by your health care provider. Make sure you discuss any questions you have with your health care provider. Document Revised: 04/10/2022 Document Reviewed: 04/10/2022 [employer] Patient Education 2023 [employer]. Follow Up Care 01/15/2024 11:39:53 With:MATEO DICK, Orestes Beckman, URL Address: [address] [place] [address]- When: Unknown [facility] 02-15-2024 Note Patient Education Oncology Bladder Cancer [...] Follow these instructions at home: ? Take sadr-wql-llgzdsv and prescription medicines only as told by [...] important. Where to find more information ? [place] [employer] (ACS): cancer.org ? National Cancer [place] (NCI): cancer.gov Contact a health care provider [...] discuss any q (more content not included)... [facility] 01-28-2024 Note Remains stable witho ut concerning symptoms [facility] 01-28-2024 Note Lipid abnormalities are well controlled Continue crestor [facility] 01-28-2024 Note Coronary artery dise ase is stable without any concerning symptoms Continue GDMT- ASA, coreg, crestor and imdur continue risk factor modifications- heart healthy diet, regular exercise as tolerated and continue all medications. [facility] 01-28-2024 Note Hypertension is well controlled currently. Continue coreg, norvasc, and imdur Renal function normal [facility] 01-28-2024 Note [facility] CARDIOLOGY PROGR ESS [...] FINAL IMPRESSIONS: 1. Severe stenoses in the chilkoot obtuse marginal branch of the left (more content not included)... [facility] 01-28-2024 Note Pt is here for a six month follow up. Pt denies sob, chest pain, palpatiations. Pt had pre surgery testing done. Review of Systems Cardiovascular: Negative for leg swelling (L>R). Musculoskeletal: Positive for back pain. All other systems reviewed and are negative. [facility] 01-28-2024 Note RCRI= 2 points Class III Risk 10.1 % 30-day risk of , SC, or cardiac arrest From a cardiac perspective pt may proceed with planned surgery/urological procedure, he is a moderate risk for a moderate to high risk procedure. Prefer Aspirin to not be held, but if absolutely necessary may hold 5-7 days. Please monitor hemodynamics carefully and prevent any major fluid shifts. [facility] 01-15-2024 Evaluation + Plan note Extrac ariadna from: Title:Urology Progress Note Author:Andrey MOBLEY MD Date:01/15/24 Impression and Plan Impression: #1. He has bladder tumors. These need to get resected. Plan: #1. He is getting scheduled for cystoscopy and TURBT under anesthesia. Future Appointments Appointment Date:02/15/2024 08:45:00 AM Scheduled Provider:Orestes MOBLEY MD Location:[facility] Appointment Type:URO Office Visit Future Scheduled Tests Laboratory* Urine Culture 12/31/23 [facility] 09-03-2024 Hospital Discharge instructions Patient [...] Up Care 12/31/2023 09:27:58 With:Orestes MOBLEY Address: [address] [place], [place] [id number]- Business (1) When: Unknown Comments:Office will call to schedule follow up [facility] 09-03-2024 NoteProgress Note-Physician Patient: KINGSLEY NAARNJO Age: 88 years Sex: Male : 1935 [...] list: All Problems Hypertension / SNOMED CT 9920524882 / Confirmed BPH with elevated PSA / SNOMED CT 655444031 / Confirmed Right inguinal hernia / SNOMED CT 404405221 / Confirmed Hypothyroidism / SNOMED CT 05976394 / Confirmed Arteriosclerotic heart disease (ASHD) / SNOMED CT 75985126 / Confirmed High cholesterol / SNOMED CT 21793868 / Confirmed Right groin pain / SNOMED CT 7426938930 / Confirmed 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 Ischemic heart disease (0176956429): Resolved. Family History: Bilateral primary ovarian cancer Mother Procedure history: Colonoscopy (170945990) on 06/30/2009 at 73 Years. Cardiac catheterization (34906219). Coronary angioplasty (64220472). Repair of inguinal hernia (90737231). Comments: 01/15/2019 15:25 EDT - Rogelio Jha [...] scheduled for cystoscopy and TURBT under anesthesia. [facility] Comment: Electronically Signed By: [...] if you have a fever over 100 degrees.[facility] 12-25-2023 Evaluation + Plan note Diagnostic Tests Pending * Creatinine 12/25/23 [facility] 08-13-2024 Evaluation + Plan note Diagnostic Tests Pending * Urine Cytology ([facility]) 12/25/23 [facility] 08-13-2024 Hospital Discharge instructions Patient [...] including vitamins, herbs, eye drops, creams, and evvq-xgr-chxergg medicines. Any problems you or family members [...] provider tells you to take them. Taking rdfb-rvk-aentmnx medicines, vitamins, herbs, and supplements. Tests You [...] Follow these instructions at home: Medicines Take jowv-uld-bqowtdc and prescription medicines only as told by [...] provider. Document Revised: 01/11/2022 Document Reviewed: 12/10/2020 [employer] Patient Education 2022 [employer] 12/25/2023 09:15:16 Hematuria, Adult Hematuria, Adult [...] Follow these instructions at home: Medicines Take lixv-sxa-xdiwqzf and prescription medicines only as told by [...] or the blood stops without treatment. Take folj-xkv-wuxrajk and prescription medicines only as told by your health care provider. Drink enough fluid to keep your urine pale yellow. This information is not intended to replace advice given to you by your health care provider. Make sure you discuss any questions you have with your health care provider. Document Revised: 12/29/2020 Document Reviewed: 12/29/2020 [employer] Patient Education 2022 [employer]. Follow Up Care 12/06/2023 14:27:33 With:JONNY BATEMAN, REX Jackson, URL Address: [address] [place] [phone] When: Unknown [facility] 08-13-2024 NotePatient Education Urology Cystoscopy Cystoscopy [...] including vitamins, herbs, eye drops, creams, and fspw-end-vifptbe medicines. ? Any problems you or family [...] tells you to take them. ? Taking savx-usj-vsacyvf medicines, vitamins, herbs, and supplements. Tests You [...] these instructions at home: Medicines ? Take uvqu-vjx-sasdrno and prescription medicines only as told by [...] your health care provider, (more content not included)...[facility] Chief Complaint: Patient [...] FINAL IMPRESSIONS: 1. 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 Sharif in the [place] office in the next 2-4 weeks. 7. Follow up with Dr. Melvin as scheduled. PROCEDURES: Ultrasound-guided access to the right common femoral artery, limited femoral angiography, bilateral selective coronary angiography, angiography of internal mammary artery graft, angiography of the saphenous vein graft, placement of a 6-[place]ian Mynx[employer]rip closure device. Echocardiogram 12/2021: Global left ventricular systolic function is normal; EF 55 to 60%. Mild biatrial dilatation. Mild to moderate tricuspid regurgitati (more content not included)...[facility]09-26-2023 [facility] Cardiology Clinic Note Chief Complaint: Patient here for 6 mo follow up CAD, hypertension, and hyperlipidemia. [facility] labs [facility] in [facility], and his PCP at the [facility] switched his statin to Crestor. He and [...] FINAL IMPRESSIONS: 1. 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 Sharif in the [place] office in the next 2-4 weeks. 7. Follow up with Dr. Melvin as scheduled. PROCEDURES: Ultrasound-guided access to the right common femoral artery, limited femoral angiography, bilateral selective coronary angiography, angiography of internal mammary artery graft, angiography of the saphenous vein graft, placement of a 6-[place] MynxGrip closure device. Labs 09/18/2022: Total cholesterol 119, LDL 63, (more content not included)...[facility]01-10-2023 NotePROCEDURE: XR LSPINE MIN 4 VIEWS [...] Electronically authenticated by: MACY MICHAEL Date: 2022-05-23 08:14[facility]01-10-2023 NotePROCEDURE: XR HIP LT 2 [...] Electronically authenticated by: MACY MICHAEL Date: 2022-05-23 08:09[facility]08-19-2022 NoteMR#: [id number] [facility] Pt. Name: Kingsley Naranjo Admitted: 12/28/2021 [...] as bypass graft angiography. Coronary angiogram showed chilkoot arteries left main is calcified but patent. [...] Jensen MD Date Trans: 12/30/2021 09:11 Anna/jeanne [id number] cc: Tucker Melvin M.D. [address] [id number] note Future Appointments Appointment Date:01/08/2024 08:30:00 AM Scheduled Provider: Location:[facility] Appointment Type:Urology CALL PAT FT Appointment Date:01/15/2024 10:45:00 AM Scheduled Provider: Location:[facility] Appointment Type:Urology FT Future Scheduled Tests Laboratory* Urine Culture 12/31/23 [facility] evaluation + Plan note Future Appointments Appointment Date:02/29/2024 11:00:00 AM Scheduled Provider:Orestes MOBLEY MD Location:[facility] Appointment Type:URO Office Visit Future Scheduled Tests Laboratory* Urine Culture 12/31/23 [facility] evaluation + Plan note Future Appointments Appointment Date:02/29/2024 11:00:00 AM Scheduled Provider:Orestes MOBLEY MD Location:[facility] Appointment Type:URO Office Visit Diagnostic Tests Pending * Urine Culture 02/18/24 Future Scheduled Tests Laboratory* Urine Culture 12/31/23 [facility] Evaluation noteNo assessment information available [facility] Work Phone: Hospital course Narrative No data available for this section [facility] Hospital Discharge instructions No data available for this section [facility] Progress note No data available for this section [facility] Summary Purpose Family History No Family [...] Found Advance Directives No Advanced Directives Records Found Advance Directive Response Recorded Date/ Time Advance Directives No January 12:03pm Additional Source Comments (unrecognized sect ion and content) No Status Records FoundNo Status Records FoundNo Status Records FoundNo Status Records FoundNo Status Records FoundNo Status Records FoundNo Status Records FoundNo Status Records FoundNo Status Records Found INFORMATION SOURCE (unrecogn ized section and content) DATE CREATED AUTHOR 01/08/2022 [facility] DATE CREATED AUTHOR AUTHOR'S ORGANIZ ATION 08/06/2022 [facility] DATE CREATED AUTHOR AUTHOR'S ORGANIZ ATION 07/26/2023 [facility] DATE CREATED AUTHOR AUTHOR'S ORGANIZ ATION 12/31/2023 [facility] DATE CREATED AUTHOR AUTHOR'S ORGANIZ ATION 01/28/2024 [facility] DATE CREATED AUTHOR AUTHOR'S ORGANIZ ATION 02/22/2024 [facility] DATE CREATED AUTHOR AUTHOR'S ORGANIZ ATION 02/28/2024 [facility] DATE CREATED AUTHOR AUTHOR'S ORGANIZ ATION [facility]20[facility] informatio n (unrecognized section and content) Team Status: Active Member Role Status Dates Eliseo Sales DO Attending Provider Active Sta rt: January 24, 2024 Team Status: Inactive Member Role Status Dates Orestes Mobley MD Attending Provider Active St art: February 07, 2024 End: February 07, 2024 Team Status: Inactive Member Role Status Dates Orestes Mobley MD Attending Provider Active St art: February 21, 2024 End: February 21, 2024 Goals (unrecognized section and content) Goals may be documented in a n alternate section FOR RECORDS PERTAINING TO PATIENTS WHO ARE [...] BE BASED ON THE PRIMARY CLINICAL RECORDS. [facility] [employer] provides no warranty or guarantee of the accuracy or completeness of information in this document.
[2024-03-01 11:26] VITALS: BP 132/74; PULSE 85; TEMP 36.9; O2SAT 96; BMI 23.6
--- NOTE | 2024-03-01 12:00 | CT_ITS ---
The [address] [address] Patient Name: KINGSLEY JENNINGS MRN: [id number] date: 1935 Sex: M Assigned Patient Location: ER Current Patient Location: ER Accession/Order Number: [id number] Exam Date: 03/01/2024 12:10 Report Date: 03/01/2024 14:35 At the request of: JODEE FINNEY Procedure: CT abdomen pelvis wo con CT ABDOMEN AND PELVIS WITHOUT CONTRAST: 03/01/2024 12:10 PM EDT Clinical Data: hematuria blood clot in bladder Comparison: Unenhanced and enhanced exam 12/26/2023 Unenhanced helically acquired data per protocol. The lack of IV contrast material hampers evaluation of the viscera, for adenopathy, and of the vasculature. The lack of oral contrast medium to some extent hampers evaluation of the bowel. All CT scans at this facility use dose modulation, iterative reconstruction, and/or weight based dosing when appropriate to reduce radiation dose to as low as reasonably achievable. FINDINGS: Moderate motion artifact lower thorax and upper abdomen. LOWER THORAX: No obvious acute finding LIVER: Incompletely included on today's exam. Included aspects are grossly unremarkable SPLEEN: No acute findings. GB/BILIARY: No acute findings at CT. PANCREAS: No acute findings. ADRENALS: No acute findings. KIDNEYS/URETERS: Kidneys are symmetric in size and density on this unenhanced exam. No evidence of hydronephrosis or hydroureter. No renal or ureteral calculi VESSELS: No AAA ABDOMINAL NODES: No obvious adenopathy. PELVIC NODES: No obvious adenopathy. BLADDER: Difficult to evaluate secondary to lack of IV contrast. The bladder is small. Margins are mildly diffusely thickened. No calcifications and no fluid fluid levels. REPRODUCTIVE: Prostate is again enlarged to nearly 5 cm and effaces the bladder base. Seminal vesicles are symmetric. PERITONEUM: No free air. No free fluid. EXTRAPERITONEUM: No acute findings. BOWEL: No GI obstruction. Moderate amount of stool throughout most of the colon. Modest amount of ingested material in the stomach. Mild amount of debris in nondistended small bowel. On this study performed without oral contrast medium, no focally thickened loop of bowel is apparent BODY WALL: No acute findings. BONES: Interval bilateral pars defects at L5 OTHER: None. CT/CT abdomen pelvis wo con IMPRESSION: 1. Evaluation of the bladder is suboptimal no contrast in the bladder and the bladder only contains a mild amount of fluid. No calculi in the bladder. No fluid- fluid level in the urinary bladder. Even considering nondistended state the bladder margins are thickened in a nonspecific manner. 2. Again, enlarged prostate effacing bladder base. 3. No hydronephrosis or hydroureter. No calculi are evident.. Electronically authenticated by: MARANDA DAIGLE Date: 03/01/2024 14:35
[2024-03-01 12:19] LABS: Basophils Absolute Auto 0.1 10^3/uL (0.0-0.1); Basophils Percent Auto 0.5 % (0.2-2.0); Eosinophils Absolute Auto 0.1 10^3/uL (0.0-0.7); Eosinophils Percent Auto 0.8 % (0.9-7.0); Hematocrit 36.4 % (42.0-54.0); Hemoglobin 12.6 g/dL (14.0-18.0); Immature Granulocytes Abs Auto 0.05 10^3/uL (0.00-0.03); Immature Granulocytes Pct Auto 0.4 % (0.0-0.5); Lymphocytes Absolute Auto 0.7 10^3/uL (1.2-3.8); Lymphocytes Percent Auto 5.3 % (20.5-60.0); Mean Corpuscular HGB Conc 34.6 g/dL (29.9-35.2); Mean Corpuscular Hemoglobin 32.8 pg (25.9-34.0); Mean Corpuscular Volume 94.8 fL (80.0-94.0); Mean Platelet Volume 9.6 fL (9.5-13.5); Monocytes Percent Auto 8.1 % (1.7-12.0); Neutrophils Absolute Auto 10.9 10^3/uL (1.4-6.5); Neutrophils Percent Auto 84.9 % (43.0-75.0); Platelet Count 188 10^3/uL (150-450); Red Blood Count 3.84 10^6/uL (4.70-6.10); Red Cell Distribution Width 13.2 % (11.0-15.0); White Blood Count 12.9 10^3/uL (4.0-11.0)
[2024-03-01 12:20] LABS: Bilirubin Urine NEGATIVE (NEGATIVE); Blood Urine LARGE (NEGATIVE); Clarity Urine SL CLOUDY (CLEAR); Glucose Urine UA NEGATIVE (NEGATIVE); Ketones Urine NEGATIVE (NEGATIVE); Leukocyte Esterase Urine MODERATE (NEGATIVE); Nitrite Urine NEGATIVE (NEGATIVE); Protein Urine 30 mg/dL (NEG/TRACE); Specific Gravity Urine 1.025 (1.005-1.025); Urobilinogen Urine 0.2 EU/dL (0.2-1.0); pH Urine 5.5 (5.0-9.0)
[2024-03-01 12:22] LABS: Color Urine DK YELLOW (YELLOW); Urine Microscopic Indicated YES
[2024-03-01 12:29] LABS: Bacteria Urine SMALL #/HPF (NONE SEEN); Cast Seen? NONE SEEN #/LPF (NONE SEEN); Crystals Seen? None Seen #/HPF (None Seen); Mucus Urine NONE SEEN (NONE SEEN); RBC Urine 20-50 #/HPF (0-2); Squamous Epithelial Cell Urine RARE #/LPF (NONE/RARE); Urine Culture Indicated YES
[2024-03-01 12:30] VITALS: BP 157/92; O2SAT 97
[2024-03-01 12:36] LABS: Alanine Aminotransferase 37 U/L (16-63); Albumin Globulin Ratio 1.2; Albumin Level 3.2 g/dL (3.4-5.0); Alkaline Phosphatase 79 U/L (46-116); Anion Gap 12.2; Aspartate Amino Transferase 22 U/L (15-37); BUN Creatinine Ratio 18.3; Bilirubin Total 0.8 mg/dL (0.2-1.0); Calcium 10.1 mg/dL (8.5-10.1); Carbon Dioxide 26.4 mmol/L (21.0-32.0); Chloride 101 mmol/L (98-107); Estimated GFR (African America >60 (>=60 mL/min/1.73m^2); Estimated GFR (Non-African Ame >60 (>=60 mL/min/1.73m^2); Globulin 2.6 g/dL; Glucose 121 mg/dL (74-106); Potassium 4.6 mmol/L (3.5-5.1); Sodium 135 mmol/L (136-145); Total Protein 5.8 g/dL (6.4-8.2)
[2024-03-01] MEDS: KETOROLAC TROMETHAMINE 30 MG/ML VIAL 15 MG IVP (12:53)
[2024-03-01 14:12] VITALS: BP 165/87; PULSE 74; O2SAT 98
[2024-03-01] MEDS: TAMSULOSIN HCL 0.4 MG CAPSULE PO (16:05)
--- NOTE | 2024-03-01 16:11 | ED.MALEGU1 ---
HPI - Male Genitourinary General Chief complaint: Urogenital-Male Stated complaint: RECHECK, URINARY Time Seen by Provider: 03/01/24 11:47 Source: patient Mode of arrival: walk-in Limitations: no limitations History of Present Illness HPI Narrative: The patient is coming to the ER with frequency as main concern, he just had a bladder polyp removed for possible cancer management and he had a urinary catheter that was removed yesterday, the patient was instructed to self cath which he did today because he felt that he is retaining urine, but the patient when he self cath he had only a small amount of urine came out and he had some blood clot The patient by the time he gets here he was feeling better he did urinate 1 time here after he had a bladder scan that shows 40 cc of urine The patient denies abdominal pain nausea vomiting or any fever he is still taking Keflex at the moment as antibiotic Related Data Home Medications ?Medication ?Instructions ?Recorded ?Confirmed amlodipine 2.5 mg tablet 2.5 mg PO DAILY 01/24/24 02/21/24 aspirin 81 mg tablet,delayed 81 mg PO DAILY 01/24/24 02/21/24 release (Adult Aspirin Regimen) carvedilol 3.125 mg tablet 3.125 mg PO BID 01/24/24 02/21/24 diclofenac sodium 50 mg 50 mg PO Q12H 01/24/24 02/21/24 tablet,delayed release isosorbide mononitrate 30 mg 15 mg PO DAILY 01/24/24 02/21/24 tablet,extended release 24 hr levothyroxine 137 mcg capsule 68.5 mcg PO DAILY 01/24/24 02/21/24 rosuvastatin 20 mg sprinkle capsule 20 mg PO DAILY 01/24/24 02/21/24 tamsulosin 0.4 mg capsule (Flomax) 0.4 mg PO DAILY 01/24/24 02/21/24 Previous Rx's ?Medication ?Instructions ?Recorded cephalexin 250 mg capsule 250 mg PO BID 7 days #14 caps 02/07/24 cephalexin 250 mg capsule 250 mg PO BID 7 days #14 caps 02/21/24 lubricants topical gel 1 ea topical .as needed #113 grams 03/01/24 (Lubricating Jelly (with chlorhexidine) topical) tamsulosin 0.4 mg capsule (Flomax) 0.8 mg (2 x 0.4 mg) PO DAILY #20 03/01/24 caps Allergies Allergy/AdvReac Type Severity Reaction Status Date / Time No Known Drug Allergies Allergy Verified 03/01/24 11:26 Review of Systems ROS Status of ROS 10 or more systems reviewed and unremarkable except as noted in history and below [facility] Medical History (Updated 03/01/24 @ 15:35 by Mel Putnam MD) Right bundle branch block ?I45.10 - Unspecified right bundle-branch block (ICD-10) BPH with obstruction/lower urinary tract symptoms ?N40.1 - Benign prostatic hyperplasia with lower urinary tract symptoms (ICD-10) ?N13.8 - Other obstructive and reflux uropathy (ICD-10) BPH with elevated PSA ?N40.0 - Benign prostatic hyperplasia without lower urinary tract symptoms (ICD-10) ?R97.20 - Elevated prostate specific antigen [PSA] (ICD-10) Hematuria ?R31.9 - Hematuria, unspecified (ICD-10) Urinary tract infection ?N39.0 - Urinary tract infection, site not specified (ICD-10) Bladder tumor ?D49.4 - Neoplasm of unspecified behavior of bladder (ICD-10) Hearing loss ?H91.90 - Unspecified hearing loss, unspecified ear (ICD-10) Back pain ?M54.9 - Dorsalgia, unspecified (ICD-10) Arthritis ?M19.90 - Unspecified osteoarthritis, unspecified site (ICD-10) High cholesterol ?E78.00 - Pure hypercholesterolemia, unspecified (ICD-10) Hypertension ?I10 - Essential (primary) hypertension (ICD-10) Coronary artery disease ?I25.10 - Atherosclerotic heart disease of [place] coronary artery without angina pectoris (ICD-10) Hypothyroidism ?E03.9 - Hypothyroidism, unspecified (ICD-10) Surgical History (Updated 01/24/24 @ 08:36 by Monika Ha NP) Hx of prostate biopsy ?Z98.890 - Other specified postprocedural states (ICD-10) History of heart artery stent ?Z95.5 - Presence of coronary angioplasty implant and graft (ICD-10) 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 - Presence of aortocoronary bypass graft (ICD-10) History of hernia repair ?Z98.890 - Other specified postprocedural states (ICD-10) ?Z87.19 - Personal history of other diseases of the digestive system (ICD-10) History of colonoscopy ?Z98.890 - Other specified postprocedural states (ICD-10) Family History (Updated 01/24/24 @ 08:36 by Monika Ha NP) Other Family history of heart disease Family history of ovarian cancer Social History (Updated 02/21/24 @ 10:05 by Vicki Anaya RN) Within the past year, how often did you have a drink containing alcohol: never Score interpretation: A score less than 4 is consistent with normal alcohol consumption. Smoking status: Never smoker Non-prescribed substance use: denies use Highest level of school completed/degree received: Associate degree: occupational, technical, vocational program Little interest or pleasure in doing things: not at all Feeling down, depressed, or hopeless: not at all Exam Narrative Exam Narrative: Nurses notes and vital signs reviewed and patient is not hypoxic. General: Well-appearing and in no apparent distress. Skin: Warm, dry, no pallor noted. No rash. Head: Normocephalic, atraumatic. Neck: Supple, non-tender. Eye: Pupils are equal, round and EOMI. No scleral icterus. Ears, Nose, Mouth, and Throat: TM are clear, no nasal mucosal hypertrophy. Oral mucosa is moist, no posterior oropharynx erythema, uvula is mid-line Cardiovascular: Regular Rate and Rhythm without murmur, gallop or rub. Respiratory: No accessory muscle use or respiratory distress. Lungs are clear to auscultation, no wheezing, rales or rhonchi Chest Wall: no tenderness Back: No midline thoracic or lumbar vertebral tenderness. No CVA tenderness Musculoskeletal: normal ROM, no calf or popliteal tenderness, no lower extremity edema/swelling GI: Abdomen is soft, non-distended. Normal bowel sounds. No masses appreciated. No tenderness to palpation. No rebound, guarding, or rigidity noted. Neurological: A&O x4. No cranial nerve dysfunction observed. No truncal ataxia. Moves all extremities. Sensation intact. Psychiatric: Cooperative and interactive. Normal mood and affect. Constitutional Vital Signs, click to edit/add: Last Vital Signs Temp 98.4 F 03/01/24 11:26 Pulse 74 03/01/24 14:12 Resp 18 03/01/24 14:12 BP 165/87 H 03/01/24 14:12 Pulse Ox 98 03/01/24 14:12 O2 Del Method Room Air 03/01/24 11:26 Course Vital Signs Vital signs: Vital Signs Temperature 98.4 F 03/01/24 11:26 Pulse Rate 85 03/01/24 11:26 Respiratory Rate 18 03/01/24 11:26 Blood Pressure 132/74 03/01/24 11:26 Pulse Oximetry 96 03/01/24 11:26 Oxygen Delivery Method Room Air 03/01/24 11:26 Temperature 98.4 F 03/01/24 11:26 Pulse Rate 74 03/01/24 14:12 Respiratory Rate 18 03/01/24 14:12 Blood Pressure 165/87 H 03/01/24 14:12 Pulse Oximetry 98 03/01/24 14:12 Oxygen Delivery Method Room Air 03/01/24 11:26 MDM - Male Genitourinary MDM Narrative Medical decision making narrative: The patient blood showed that the patient white blood cell is 12 he does not have any active symptoms of urine infection and he just had the catheter removed yesterday after recent procedure, he was already covered with Keflex and he did not finish the prescription yet The chemistry shows no acute pathology as well The patient urine shows no signs of infection specially with the patient taking antibiotic activity at the moment CAT scan of the abdomen and pelvis without contrast showed that there is no bladder distention the patient had enlarged prostate and he does take 0.4 mg of Flomax daily It was noted that the patient was not having any urine retention in the ER he had a almost 40 cc of urine retained and he did urinate when he came here and he was feeling better after that The patient urinated in the ER twice after which the blood was not showing up in the urine sample The patiently is planned to be using self cath as needed but he was provided with a prescription for chlorhexidine gel to help him with his self cath in case needed I did explain to the patient that right now his symptoms could be secondary to the bladder his blood workup did not show any significant pathology, and he already is getting treated for urine infection with a Keflex prescription but we will send for urine culture The patient to come to the ER in case of any pain fever or any other concerns also to come back to the ER in case of any blood in urine The patient to follow-up with Dr. Mobley Sunday The patient is to follow up with primary care physician in next 2-3 days or to return to the emergency department should any of the signs or symptoms worsen or new symptoms develop. The patient agrees with the following Diagnosis and Treatment plan and the patient will be discharged home. Lab Data Labs: Lab Results 03/01/24 03/01/24 Range/Units 11:40 12:07 WBC 12.9 H (4.0-11.0) 10^3/uL RBC 3.84 L (4.70-6.10) 10^6/uL Hgb 12.6 L (14.0-18.0) g/dL Hct 36.4 L (42.0-54.0) % MCV 94.8 H (80.0-94.0) fL MCH 32.8 (25.9-34.0) pg MCHC 34.6 (29.9-35.2) g/dL RDW 13.2 (11.0-15.0) % Plt Count 188 (150-450) 10^3/uL MPV 9.6 (9.5-13.5) fL Neut % (Auto) 84.9 H (43.0-75.0) % Lymph % (Auto) 5.3 L (20.5-60.0) % [place] % (Auto) 8.1 (1.7-12.0) % Eos % (Auto) 0.8 L (0.9-7.0) % Baso % (Auto) 0.5 (0.2-2.0) % Neut # (Auto) 10.9 H (1.4-6.5) 10^3/uL Lymph # (Auto) 0.7 L (1.2-3.8) 10^3/uL Rush # (Auto) 1.0 H (0.3-0.8) 10^3/uL Eos # (Auto) 0.1 (0.0-0.7) 10^3/uL Baso # (Auto) 0.1 (0.0-0.1) 10^3/uL Abs Immat Gran (auto) 0.05 H (0.00-0.03) 10^3/uL Imm/Tot Granulo (auto) 0.4 (0.0-0.5) % Sodium 135 L (136-145) mmol/L Potassium 4.6 (3.5-5.1) mmol/L Chloride 101 (98-107) mmol/L Carbon Dioxide 26.4 (21.0-32.0) mmol/L Anion Gap 12.2 BUN 19.0 H (7.0-18.0) mg/dL Creatinine 1.04 (0.70-1.30) mg/dL Est GFR ( Amer) >60 (>=60 mL/min/1.73m^2) Est GFR (Non-Af Amer) >60 (>=60 mL/min/1.73m^2) BUN/Creatinine Ratio 18.3 Glucose 121 H (74-106) mg/dL Calcium 10.1 (8.5-10.1) mg/dL Total Bilirubin 0.8 (0.2-1.0) mg/dL AST 22 (15-37) U/L ALT 37 (16-63) U/L Alkaline Phosphatase 79 (46-116) U/L Total Protein 5.8 L (6.4-8.2) g/dL Albumin 3.2 L (3.4-5.0) g/dL Globulin 2.6 g/dL Albumin/Globulin Ratio 1.2 Urine Color Dk yellow (YELLOW) Urine Clarity Sl cloudy (CLEAR) Urine pH 5.5 (5.0-9.0) Ur Specific [place] 1.025 (1.005-1.025) Urine Protein 30 A (NEG/TRACE) mg/dL Urine Glucose (UA) Negative (NEGATIVE) mg/dL Urine Ketones Negative (NEGATIVE) mg/dL Urine Occult Blood Large A (NEGATIVE) Urine Nitrite Negative (NEGATIVE) Urine Bilirubin Negative (NEGATIVE) Urine Urobilinogen 0.2 (0.2-1.0) EU/dL Ur Leukocyte Esterase Moderate A (NEGATIVE) Urine RBC 20-50 A (0-2) #/HPF Urine WBC 10-20 A (NONE SEEN) #/HPF Ur Squamous Epith Cells Rare (NONE/RARE) #/LPF Urine Crystals None seen (None Seen) #/HPF Urine Bacteria Small A (NONE SEEN) #/HPF Urine Casts None seen (NONE SEEN) #/LPF Urine Mucus None seen (NONE SEEN) Ur Culture Indicated? Yes Discharge Plan Discharge Chief Complaint: Urogenital-Male Clinical Impression: Urinary frequency Patient Disposition: Home, Self-Care Time of Disposition Decision: 15:35 Condition: Good Prescriptions / Home Meds: New tamsulosin [Flomax] 0.4 mg capsule 0.8 mg PO DAILY Qty: 20 0RF lubricants [Lubricating Jelly (chlorhexid)] Gel 1 ea topical .as needed Qty: 113 0RF Rx Instructions: apply with with each self catheter No Action diclofenac sodium 50 mg tablet,delayed release (DR/EC) 50 mg PO Q12H isosorbide mononitrate 30 mg tablet extended release 24 hr 15 mg PO DAILY rosuvastatin 20 mg capsule, sprinkle 20 mg PO DAILY levothyroxine 137 mcg capsule 68.5 mcg PO DAILY amlodipine 2.5 mg tablet 2.5 mg PO DAILY tamsulosin [Flomax] 0.4 mg capsule 0.4 mg PO DAILY aspirin [Adult Aspirin Regimen] 81 mg tablet,delayed release (DR/EC) 81 mg PO DAILY carvedilol 3.125 mg tablet 3.125 mg PO BID Rx Instructions: must administer with a meal/food cephalexin 250 mg capsule 250 mg PO BID 7 Days Qty: 14 0RF cephalexin 250 mg capsule 250 mg PO BID 7 Days Qty: 14 0RF Print Language: Greek Instructions: Urinary Urgency and Frequency (DC) Referrals: Tucker Melvin MD [Primary Care Provider] - 1 week
== END 2024-03-01 16:16 | disposition home or self-care (01) ==
PROVIDERS: Emergency Provider Emergency Medicine; PCP Family Medicine
DX: R35.0 Frequency of micturition (principal)
CPT/HCPCS: 36415; 74176; 80053; 81001; 85025; 87086; 87150; 96374; 99285; J1885

== ENCOUNTER 2024-03-17 08:30 | Outpatient (OUT) | payer MEDICARE, OTHER, SELFPAY ==
[2024-03-17 09:08] LABS: Bilirubin Urine NEGATIVE (NEGATIVE); Blood Urine MODERATE (NEGATIVE); Clarity Urine SL CLOUDY (CLEAR); Color Urine LT. YELLOW (YELLOW); Glucose Urine UA NEGATIVE (NEGATIVE); Ketones Urine NEGATIVE (NEGATIVE); Leukocyte Esterase Urine LARGE (NEGATIVE); Nitrite Urine NEGATIVE (NEGATIVE); Protein Urine NEGATIVE (NEG/TRACE); Urobilinogen Urine 0.2 EU/dL (0.2-1.0)
[2024-03-17 09:42] LABS: Bacteria Urine MODERATE #/HPF (NONE SEEN); Crystals Seen? None Seen #/HPF (None Seen); Mucus Urine SMALL (NONE SEEN); Squamous Epithelial Cell Urine FEW #/LPF (NONE/RARE); WBC Urine >100 #/HPF (NONE SEEN)
[2024-03-17 09:43] LABS: Cast Seen? SEEN #/LPF (NONE SEEN); Hyaline Casts Urine FEW
== END 2024-03-17 08:31 | disposition home or self-care (01) ==
LOC: LAB 08:32
PROVIDERS: PCP Family Medicine; Visit Provider Family Medicine
DX: N39.0 Urinary tract infection, site not specified (principal)
CPT/HCPCS: 81001; 87086

== ENCOUNTER 2024-06-06 09:44 | Outpatient (OUT) | payer MEDICARE, OTHER, SELFPAY ==
--- OUTSIDE RECORDS SUMMARY | 2024-06-06 10:04 | XMS_ITS | CCD ---
Author Organization [facility] Care Team Providers Care Freight Service Inspector Name Role Phone ELTAHAWY, EHAB A Attending [...] HOY ., DR RODRIGUEZ Admitting Unavailable Gay Baeza Consulting Unavailable CK NIXON Consulting Unavailable DOUGY [...] HOY ., DR RODRIGUEZ Admitting Unavailable Gay Baeza Consulting Unavailable TOYA, DR VALLEJO Consulting Unavailable Meera, Jennifer Primary Care Physician ADÁN SHARIF Attending Unavailable ADÁN SHARIF Attending Unavailable VINH GUZMAN Attending Unavailable MD Eusebia Galindo Attending Provider Eusebia Galindo MD Primary Care Provider Jennifer Estes MD Primary Care Provider [phone] Eusebia Galindo Attending Unavailable Eusebia Galindo Admitting Unavailable Eusebia Galindo Attending Unavailable Eusebia Galindo Admitting Unavailable Taz MARQUIS, Liana Rosales Unavailable [phone] Jacek Cano MD Unavailable [phone] HOY, JENNIFER M Primary Care Unavailable SELENA DONNELLY Attending Unavailable HOY, JENNIFER M Primary Care Unavailable JACEK CANO Attending Unavailable HOY, JENNIFER M Primary Care Unavailable HOY, JENNIFER M Primary Care Unavailable HOY, JENNIFER M Primary Care Unavailable HOY, JENNIFER M Primary Care Unavailable HOY, JENNIFER M Primary Care Unavailable HOY, JENNIFER M Primary Care Unavailable HOY, JENNIFER M Primary Care Unavailable HOY, JENNIFER M Primary Care Unavailable HOY, JENNIFER M Primary Care Unavailable SELENA DONNELLY Attending Unavailable HOY, JENNIFER M Primary Care Unavailable HOY, JENINFER M Primary Care Unavailable EUSEBIA GALINDO Referring Unavailable JACEK CANO Attending Unavailable HOY, JENNIFER M Primary Care Unavailable HOY, JENNIFER M Primary Care Unavailable HOY, JENNIFER M Primary Care Unavailable HOY, JENNIFER M Primary Care Unavailable ANDRZEJSELENA MOORE Attending Unavailable HOY, JENNIFER M Primary Care Unavailable HOY, JENNIFER M Primary Care Unavailable HOY, JENNIFER M Primary Care Unavailable HOY, JENNIFER M Primary Care Unavailable HOY, JENNIFER M Primary Care Unavailable HOY, JENNIFER M Primary Care Unavailable Eusebia GALINDO Attending Unavailable Eusebia GALINDO Attending Unavailable Hamida Sanz Attending Unavailable Eusebia GALINDO Attending Unavailable GALINDO, Eusebia R Attending Unavailable GALINDO, REYNALDO Attending Unavailable GALINDO, Eusebia R Attending Unavailable GALINDO, Eusebia R Referring Unavailable GALINDO, Eusebia R Admitting Unavailable GALINDO, Eusebia R Admitting Unavailable GALINDO, Eusebia R Attending Unavailable JONNY, BRISA Jackson Admitting Unavailable JONNY, BRISA Jackson Attending Unavailable JONNY, BRISA Jackson Attending Unavailable Hoy, Jennifer Referring Unavailable JONNY, BRISA Jackson Attending Unavailable Hoy, Jennifer Referring Unavailable JONNY, BRISA Jackson Attending Unavailable GALINDO, Eusebia R Admitting Unavailable GALINDO, Eusebia R Attending Unavailable GALINDO, Eusebia R Attending Unavailable Allergies Allergy Classification Reported Allergen(s) Allergy Type Date of Onset Reaction(s) Facility (6 sources) Adhesive bandage; Translations: [Adhesive Bandage] Drug allergy Blister (morphologic abnormality) [facility] (20 sources) Fluorouracil-Ad hesive Bandage; Translations: [FLUOROURACIL-A DHESIVE BANDAGE] Drug Allergy Other: See Comments [facility] (3 sources) No Known Medication Allergies; Translations: [No Known Medication Allergies] Propensity to adverse reactions (disorder) [facility] Repository Medications Current Medications Medication Drug Class(es) Dates Sig (Normalized) Sig (Original) amLODIPine 2.5 mg oral tablet (20 sources) Dihydropyridine Calcium Channel Allyson Start: 12-25-2023 take 1 tablet by mouth once daily amLODIPine 2.5 mg Tab 2.5 mg = 1 tab(s), Oral, Daily Start Date: 12/25/23 Status: Ordered aspirin 81 mg oral tablet (20 sources) Platelet Aggregation Inhibitor, Nonsteroidal Anti-inflammatory Drug Start: 01-15-2019 take 1 mg by mouth once daily aspirin 81 mg oral tablet mg tab(s), Oral, Daily, Refills(s) 0 Start Date: 01/15/19 Status: Ordered Start: 05-08-2006 aspirin, enter ic coated (ASPIRIN, ENTERIC COATED) 81 mg EC tablet in the morning. 05/08/2006 Active carvedilol 3.125 mg oral tablet (20 sources) alpha-Adrenergic Allyson, beta-Adrenergic Allyson Start: 12-25-2023 take 2 tablets by mouth once daily carvedilol 3.125 mg Tab 6.25 mg = 2 tab(s), Oral, Daily Start Date: 12/25/23 Status: Ordered cholecalciferol 0.05 mg oral capsule (20 sources) Vitamin D Start: 01-15-2019 Cholecalciferol , Vitamin D3, 50 mcg (2,000 unit) cap Take 2,000 Int'l Units by mouth. 01/15/2019 Active Start: 01-15-2019 take 1 capsule by mo uth once daily cholecalciferol 2000 intl units oral capsule 2,000 International_Unit = 1 cap(s), Oral, Daily Start Date: 01/15/19 Status: Ordered diclofenac sodium 50 mg delayed release oral tablet (20 sources) Nonsteroidal Anti-inflammatory Drug Start: 12-25-2023 take 1 tablet by mouth three times daily diclofenac sodium 50 mg Oral EC Tab 50 mg = 1 tab(s), Oral, TID Start Date: 12/25/23 Status: Ordered docosahexaenoic acid 120 mg / eicosapentaenoic acid 180 mg oral capsule (20 sources) Docosahexanoic Acid-Eicosapent (FISH OIL) 120-180 mg capsule Take 2 g by mouth as needed (pt states he takes this off and on). Active 24 hr isosorbide mononitrate 30 mg extended release oral tablet (20 sources) Nitrate Vasodilator Start: 01-15-2019 take 1 tablet by mouth once daily, then take 2 tablets by mouth every twenty-four hours isosorbide mononitrate ER (IMDUR) 30 mg 24 hr tablet Take 15 mg by mouth once daily. 01/15/2019 Active Start: 01-15-2019 take 1 tablet by reinaldo th every twenty-four hours isosorbide mononitrate ER (IMDUR) 30 mg 24 hr tablet Take by mouth. 01/15/2019 Active Start: 01-15-2019 take 1 tablet by reinaldo th once daily in the morning isosorbide mononitrate 30 mg ER Tab 1/2 tab, Oral, qAM Start Date: 01/15/19 Status: Ordered levothyroxine sodium 0.137 mg oral tablet (20 sources) l-Thyroxine Start: 12-25-2023 take 0.5 tablet by mouth once daily levothyroxine 137 mcg (0.137 mg) Tab 1/2 tab(s), Oral, Daily Start Date: 12/25/23 Status: Ordered Start: 09-26-2023 levothyroxine (SYNTHROID) 137 mcg tablet Take by mouth. 09/26/2023 Active magnesium chloride 64 mg magnesium tab (20 sources) take 1 tablet by mouth once daily as needed magnesium chloride 64 mg magnesium tab Take 1 tablet by mouth once daily as needed (pt states he takes this off and on). Active mecobalamin (20 sources) take 1 tablet by mouth once daily as needed mecobalamin (B12 ACTIVE ORAL) Take 1 tablet by mouth once daily as needed (pt states he takes this off and on). Active melatonin 10 mg oral tablet (20 sources) take 1 tablet by mouth once daily at bedtime melatonin 10 mg tab Take 1 tablet by mouth daily at bedtime. Active Multivitamins-[place] ls-Lutein (MULTIVITAMIN 50 PLUS) tab (20 sources) Multivitamins-Mi ner als-Lutein (MULTIVITAMIN 50 PLUS) tab Take 1 tablet by mouth once daily as needed (pt states he takes this off and on). Active mupirocin 0.02 mg/mg topical ointment (20 sources) RNA Synthetase Inhibitor Antibacterial Start: mupirocin (BACTROBAN) 2 % ointment 03/06/2024 Active Start: 03-06-2024 mupirocin (JENNI TROBAN) 2 % ointment APPLY 1 APPLICATION TOPICALLY TWICE A DAY FOR 5 DAYS 03/06/2024 Active Nitro 0.4 mg Tab (11 sources) Start: 01-15-2019 Nitro 0.4 mg T ab = 1 tab(s), SubLingual, q5min, PRN Chest pain Start Date: 01/15/19 Status: Ordered polyethylene glycol 3350 09509 mg powder for oral solution (20 sources) Osmotic Laxative polyethylene gl ycol 3350 (PURELAX) 17 gram packet Take 17 g by mouth once daily. Dissolve dose in 4 - 8 ounces of liquid and take as directed. Active Psyllium (20 sources) Start: 12-25-2023 Metamucil Oral Start Date: 12/25/23 Status: Ordered take 1 dose by mouth once daily psyllium (METAMUCIL FIBER SINGLES) 3.4 gram packet Take 1 Packet by mouth once daily. Active pyridoxine hydrochloride 25 mg oral tablet (20 sources) take 1 tablet by mouth once daily as needed pyridoxine, vitamin B6, (VITAMIN B-6) 25 mg tablet Take 25 mg by mouth once daily as needed (pt states he takes this off and on). Active rosuvastatin calcium 20 mg oral tablet (20 sources) HMG-CoA Reductase Inhibitor Start: 4 take 1 tablet by mouth once daily rosuvastatin 20 mg Tab 20 mg = 1 tab(s), Oral, Daily Start Date: 12/25/23 Status: Ordered tamsulosin hydrochloride 0.4 mg oral capsule (20 sources) alpha-Adrenergic Allyson Start: 4 take 1 capsule by mouth once daily tamsulosin 0.4 mg Cap 0.4 mg = 1 cap(s), Oral, Daily Start Date: 12/25/23 Status: Ordered take 0.8 mg by mouth once daily tamsulosin (FLOMAX) 0.4 mg Take 0.8 mg by mouth once daily. Active triamcinolone acetonide 1 mg/ml topical cream (20 sources) Corticosteroid Start: 03-06-2024 triamcinolone acetonide (KENALOG) 0.1 % cream 03/06/2024 Active Start: 03-06-2024 triamcinolone acetonide (KENALOG) 0.1 % cream APPLY TO AFFECTED AREA TWICE A DAY FOR 5 DAYS 03/06/2024 Active vitamin B12 (11 sources) Vitamin B12 Start: 01-15-2019 Vitamin B12 Se e Instructions Start Date: 01/15/19 Status: Ordered vitamin e 90 mg oral capsule (20 sources) Vitamin E, dl, a cetate, (VITAMIN E) 134 mg (200 unit) Capsule Take 200 Units by mouth once daily as needed (pt states he takes this off and on). Active Completed/Discontinued Medications Medication Drug Class(es) Dates Sig (Normalized) Sig (Original) bcg 50 mg in NaCl 0.9% 50 mL (6 sources) Start: 05-02-2024 End: 05-02-2024 50 mg, INTRAVESICAL, ONCE, 1 dose, On Sun05/02/24 at 0900, Instill into bladder via catheter and retain for 120 minutes, followed by bladder drainage. PROTECT FROM LIGHT Hazardous Chemotherapy Drug: Use appropriate PPE. Protect from Light. Start: 04-25-2024 End: 04-25-2024 50 mg, INTRAVESICAL, ONCE, 1 dose, On Sun04/25/24 at 0930, Instill into bladder via catheter and retain for 120 minutes, followed by bladder drainage. PROTECT FROM LIGHT Hazardous Chemotherapy Drug: Use appropriate PPE. Protect from Light. Start: 04-18-2024 End: 04-18-2024 50 mg, INTRAVESICAL, ONCE, 1 dose, On Sun04/18/24 at 0900, Instill into bladder via catheter and retain for 120 minutes, followed by bladder drainage. PROTECT FROM LIGHT Hazardous Chemotherapy Drug: Use appropriate PPE. Protect from Light. Start: 04-11-2024 End: 04-11-2024 50 mg, INTRAVESICAL, ONCE, 1 dose, On Sun04/11/24 at 0930, Instill into bladder via catheter and retain for 120 minutes, followed by bladder drainage. PROTECT FROM LIGHT Hazardous Chemotherapy Drug: Use appropriate PPE. Protect from Light. Start: 04-04-2024 End: 04-04-2024 50 mg, INTRAVESICAL, ONCE, 1 dose, On Sun04/04/24 at 0930, Instill into bladder via catheter and retain for 120 minutes, followed by bladder drainage. PROTECT FROM LIGHT Hazardous Chemotherapy Drug: Use appropriate PPE. Protect from Light. Start: 03-28-2024 End: 03-28-2024 50 mg, INTRAVESICAL, ONCE, 1 dose, On Sun03/28/24 at 0930, Instill into bladder via catheter and retain for 120 minutes, followed by bladder drainage. PROTECT FROM LIGHT Hazardous Chemotherapy Drug: Use appropriate PPE. Protect from Light. cefdinir 300 mg oral capsule (2 sources) Cephalosporin Antibacterial Start: 12-20-2023 End: 03-14-2024 take 2 capsules by mouth once daily cefdinir (OMNICEF) 300 mg capsule TAKE 2 CAPSULES BY MOUTH ONCE A DAY FOR 10 DAYS 12/20/2023 03/14/2024 Discontinued (Course of therapy completed) cephalexin 250 mg oral capsule (4 sources) Cephalosporin Antibacterial Start: 02-21-2024 End: 03-14-2024 take 1 capsule by mouth every twelve hours cephALEXin (KEFLEX) 250 mg capsule Take 1 capsule by mouth every 12 hours. 02/21/2024 03/14/2024 Discontinued (Course of therapy completed) Start: 02-18-2024 End: 02-25-2024 take 1 capsule by mouth twice daily Keflex 250 mg Cap 250 mg = 1 cap(s), Oral, BID, X 1 week(s), # 14 cap(s), Refills(s) 0, Pharmacy: [id number]/pharmacy #[id number], 178, cm, 02/15/24 8:37:00 EDT, Height/Length Dosing, 73, kg, 02/15/24 8:37:00 EDT, Weight Dosing Start Date: 02/18/24 Stop Date: 02/25/24 Status: Ordered ciprofloxacin 250 mg oral tablet (9 sources) Quinolone Antimicrobial Start: 05-22-2024 take 1 tablet by mouth every three months Cipro 250 mg Tab 250 mg = 1 tab(s), Oral, Daily, Take 1 tablet the day before the procedure and 1 tablet after the procedure, every 3 months, # 8 tab(s), Refills(s) 0, [id number] 178, cm, 05/22/24 9:41:00 EST, Height/Length Dosing, 73.2, kg, 05/22/24 9:41:00 EST, Weight Dosing Start Date: 05/22/24 Status: Ordered Start: 05-16-2024 End: 05-21-2024 take 1 tablet by mouth twice daily ciprofloxacin HCl (CIPRO) 250 mg tablet Take 1 tablet by mouth two times a day for 5 days. 10 tablet 05/16/2024 05/21/2024 Active Start: 12-25-2023 End: 03-14-2024 ciprofloxacin HCl (CIPRO) 50 0 mg tablet TAKE 1 TAB THE DAY BEFORE PROCEDURE AND 1 TAB AFTER THE PROCEDURE 12/25/2023 03/14/2024 Discontinued (Discontinued by Patient) levoFLOXacin 750 mg oral tablet (2 sources) Quinolone Antimicrobial Start: 03-04-2024 End: 03-14-2024 take 1 tablet by mouth once levoFLOXacin (LEVAQUIN) 750 mg tablet Take 1 tablet by mouth every afternoon. 03/04/2024 03/14/2024 Discontinued (Discontinued by Patient) lidocaine hydrochloride 0.02 mg/mg topical gel (5 sources) Antiarrhythmic, Amide Local Anesthetic Start: 05-02-2024 End: 05-02-2024 11 mL, OTHER, ONCE, 1 dose, On Sun05/02/24 at 0900, Intravesical administration Start: 04-25-2024 End: 04-25-2024 11 mL, OTHER, ONCE, 1 dose, On Sun04/25/24 at 0930, Intravesical administration Start: 04-11-2024 End: 04-11-2024 11 mL, OTHER, ONCE, 1 dose, On Sun04/11/24 at 0930, Intravesical administration Start: 04-04-2024 End: 04-04-2024 11 mL, OTHER, ONCE, 1 dose, On Sun04/04/24 at 0930, Intravesical administration Start: 03-28-2024 End: 03-28-2024 11 mL, OTHER, ONCE, 1 dose, On Sun03/28/24 at 0930, Intravesical administration phenazopyridine hydrochloride 200 mg oral tablet (2 sources) Start: 12-20-2023 End: 03-14-2024 take 1 tablet by mouth three times daily after mealtime phenazopyridine (PYRIDIUM) 200 mg tablet TAKE 1 TABLET BY MOUTH THREE TIMES A DAY AFTER MEALS FOR 2 DAYS 12/20/2023 03/14/2024 Discontinued (Discontinued by Patient) Problems Active Problems Problem Classification Problem Date Documented Da te Episodic/Chronic Abdominal hernia (11 sources) Right inguinal hernia 01-15-2019 Episodic Abdominal pain (11 sources) Right inguinal pain 04-15-2019 Episodic Calculus of urinary tract (15 sources) Kidney stone; Translations: [Calculus of kidney] Onset: 12-25-2023 Episodic Cancer of bladder (20 sources) Malignant tumor of urinary bladder; Translations: [Malignant neoplasm of bladder, unspecified] Onset: 02-15-2024 Chronic Cardiac dysrhythmias (1 source) Ventricular tachycardia; Translations: [VENTRICULAR TACHYCARDIA] Onset: 12-21-2021 Chronic Conduction disorders (11 sources) Right bundle branch block 01-15-2019 Chronic Coronary atherosclerosis and other heart disease (20 sources) Atherosclerotic heart disease of [place] coronary artery without angina pectoris; Translations: [Angina pectoris, unspecified] Onset: 12-20-2021 Chronic Coronary atherosclerosis and other heart disease (2 sources) Presence of aortocoronary bypass graft; Translations: [Presence of aortocoronary bypass graft] Onset: 08-11-2022 Episodic Disorders of lipid metabolism (20 sources) Pure hypercholesterolemia, unspecified; Translations: [Hypercholesterolemia ] Onset: 12-21-2021 Chronic Essential hypertension (13 sources) Hypertensive disorder; Translations: [Essential (primary) hypertension] Onset: 08-11-2022 01-15-2019 Chronic Genitourinary symptoms and ill-defined conditions (20 sources) Blood in urine; Translations: [Gross hematuria] Onset: 12-25-2023 Episodic Heart valve disorders (1 source) Rheumatic tricuspid insufficiency; 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 TRICUSPID INSUFFICIENCY] Onset: 12-22-2021 Chronic Hyperplasia of prostate (20 sources) Benign prostatic hypertrophy with outflow obstruction; Translations: [Benign prostatic hyperplasia with lower urinary tract symptoms] Onset: 12-25-2023 Chronic Other aftercare (2 sources) Taking high risk medication; Translations: [Other assisted (current) drug therapy] 03-28-2024 Episodic Other aftercare (1 source) Patient encounter status; Translations: [Other superintendent terminal (current) drug therapy] 04-04-2024 Episodic Other diseases of bladder and urethra (1 source) Disorder of bladder; Translations: [Other specified disorders of bladder] Onset: 12-25-2023 Chronic Other diseases of kidney and ureters (1 source) Urinary tract obstruction; Translations: [Other obstructive and reflux uropathy] Onset: 06-03-2024 Episodic Other ear and sense organ disorders (11 sources) Hearing loss 12-25-2023 Chronic Other fractures (4 sources) Collapsed vertebra, not elsewhere classified, lumbosacral region, initial encounter for fracture; Translations: [COLLAPSED VERT NEC LS RGN INIT ENC] Onset: 05-22-2022 Episodic Other gastrointestinal disorders (1 source) Constipation, unspecified; Translations: [CONSTIPATION UNSPECIFIED] Onset: 07-31-2022 Episodic Other screening for suspected conditions (not mental disorders or infectious disease) (16 sources) Encounter for screening for malignant neoplasm [...] THOR SUB] Onset: 05-14-2022 Episodic Thyroid disorders (11 sources) Hypothyroidism 01-15-2019 Chronic Unclassified (1 source) CONTACT W/AND (SUSP) EXPOS COVID-19; Translations: [CONTACT W/AND (SUSP) EXPOS COVID-19] Onset: 12-27-2021 Past or Other Problems Problem Classification Problem Date Documented Da te Episodic/Chronic Other aftercare (1 source) Other assisted (current) drug therapy; Translations: [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] Onset: 12-27-2021 Episodic Results Test Name Value Interpretation Reference Range Facility Ambulatory Visit Summaryon 0 06-03-2024 Ambulatory Visit Summary Ambulatory Visit Summary KINGSLEY JENNINGS :1935 Visit Date:06/03/2024 Ambulatory Visit Instructions Your Diagnosis Bladder cancer Urinary retention Kidney stone BPH with obstruction/lower urinary tract symptoms Elevated PSA Other obstructive and reflux uropathy Your Care Team Attending Physician - MATEO DICK, Eusebia Beckman Primary Care Physician - Jennifer Estes MD This Is Your Medications List Contact [...] mg Tab) tamsulosin (tamsulosin 0.4 mg Cap) [Image Removed: STOP]Stop taking these medications ciprofloxacin (Cipro 250 mg Tab) Procedures Performed Cystoscopy (06/03/2024), TURBT - Transurethral resection of bladder tumor (02/07/2024), Cystoscopy (01/15/2024), Colonoscopy (06/30/2009), Cardiac catheterization, Coronary angioplasty, Repair of inguinal hernia. Discharge Vitals Heart Rate (Peripheral) 52 Respiratory Rate 16 Blood Pressure 150/90 Height 178 cm Height 70 in Weight 73.2 kg Weight 161.378 lb BMI 23.1 What to do next You Need to Schedule the Following Appointments Follow Up with MATEO DICK, ZELDA Goodwin When: In 3 months Comments: w/Cysto/FISH Cytol Where: [facility] [address] [place] [address]- Medications What How Much When Instructions Unchanged [...] Contact prescribing physician if questions or concerns What How Much When Comments Stop Taking ciprofloxacin (Cipro 250 mg Tab) 1 Tablets By Mouth Every day Take 1 tablet the day before the procedure and 1 tablet after the procedure, every 3 months Medications and Immunizations Administered Given lidocaine Top 2% Gel w/Appl 11 mL, 11 mL, Topical. For: Urinary retention, BPH with obstruction/lower urinary tract symptoms Allergies Adhesive Bandage (Blisters) Problems Ongoing - Any problem that you are currently receiving treatment for. 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 Ischemic heart disease Right bundle branch block Patient Survey You may receive a survey via text or e-mail asking about your office visit. Please share your experience with us by completing your survey. We appreciate your feedback and thank you for choosing us for your care. Education Materials Bladder Cancer Bladder cancer is a condition where abnormal tissue (a tumor) grows in the bladder. The bladder is the organ that holds urine. Two tubes (ureters) carry urine from the kidneys to the bladder. The bladder wall (more content not included)... [facility] Urology Office/Clinic Noteon 06-03-2024 Urology Office/Clinic Note Urology Office/Clinic Note Chief Complaint Cysto HPI Staff Cysto ABX taken History of Present Illness Tests reviewed: none. I have reviewed the previous health record information and history for this patient from . I have reviewed and verified the staff [...] See HPI. Physical Exam Vitals & Measurements HR: 52(Peripheral) RR: 16 BP: 150/90 HT: 70 in HT: 178 cm WT: 73.2 kg WT: 161.378 lb BMI: 23.1 General Appearance: alert, no distress, well nourished, well developed male. Procedure Operative Information Anesthesia Type: Local Procedure: Local Cystoscopy Complications: None Surgical risks, benefits, details of the procedure have been explained to the patient. Full informed consent has been obtained. Intraoperative Information Prepped: Patient is brought back to the endoscopy suite. Patient is placed in supine position. Patient prepped in the usual fashion with Betadine solution. 2% Xylocaine Jelly is placed per Urethra. After waiting several minutes, the Cystoscope is introduced. The Urethra is: Normal The Prostatic Urethra is: bilobar obstruction The Bladder: one new flat red are on the floor on the Lt side, measures about 2-3cm, question BCG effect, deep diffuse diverticuli, no tumors Trabeculated: Severe (3) The Ureteral orifices: Show efflux of clear urine Specimens Removed: Voided specimen sent for FISH and Cytology test Removal: Cystoscope is removed. The patient tolerated it well. Postoperative Information Patient is discharged home with antibiotic coverage. Follow up arranged. Assessment/Plan 1. 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 Results reviewed with pt and his son in detail. Called and spoke with [facility] pathologist. Reviewed pathology slides and he confirmed that there is no muscle present. S/p cysto, TURBT, deep bladder biopsies of previous resection beds x 8 02/21/24. Howe removed IO today. Path ~fragments of urinary bladder wall with ulceration granulation tissue hemorrhage and fibrosis consistent with previous resection site. No evidence of residual transitional cell carcinoma is identified. 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 No evidence of lamina propria or muscle invasion is identified. BCG x6 wks completed in the beginning of 05/2024. Pt had IO cysto done today without complications. Will send voided specimen for FISH/Cytol, will call if positive. Follow up in 3 mos w/Cysto/FISH/Cytol. All questions/concerns were discussed. Pt to call the office if he encounters any issues prior. Pt acknowledges understanding. -See Procedure Documentation -BCG x 3 in July/August at [facility]. Urinary retention (R33.9: Retention of urine, unspecified) Pt's son called 02/18/24 reporting that pt took an at home UTI test and it was positive for a UTI. Pt was experiencing frequency, nocturia (every hour) and voiding small amounts. PVR in office 02/18/24 137 mL. UA was suspicious for infection. (more content not included)... [facility] Comment on above: Result Comment: Elec tronically Signed By: Eusebia GALINDO MD\.br\Date and Time Signed: 06/03/24 16:24 EST\.br\Electronically Co-Signed By: Mckenzie Blackburnbr\Date and Time Co-Signed: 06/03/24 16:20 EST CNOVSPon 05-23-2024 CNOVSP Visit (SP) Office ([place]) KINGSLEY JENNINGS ([id number]) 1935 M Date Time Provider Department 05/23/24 2:00 PM JACEK CANO During your visit today, we recorded the following information about you: Temperature Pulse Respiration Blood pressure 97.2 degrees 57/minute 16/minute 149/70 Weight 74.9 kg Bhargavi Montoya MA 05/23/2024 2:01 PM Signed Patient has been constipated the last few days, he has taken Purelax but that doesn't seem to help. LIZBET Ramirez Adarsh, MD 05/23/2024 1:45 PM Signed F/u in 3 months Jacek Cano MD 05/23/2024 2:01 PM Signed PATIENT NAME: Kingsley Jennings CLINIC NO.: [id number] ATTENDING PHYSICIAN: Jacek Cano MD DATE OF SERVICE: 05/23/[address] Eusebia Galindo [address] [place] [id number] thank you for referring Kingsley Jennings for an opinion regarding bladder cancer. Some of the elements of this note have been copied from Selena Donnelly previous progress note dated 05/02/24 . All the information has been reviewed carefully. 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 Interval History: Patient here for consideration of week 6 of BCG. Patient denies any urinary symptoms. UA in the office today was negative. We will proceed with BCG. Patient's son is here with him today reviewed precautions and education for BCG. Overall patient is feeling well. No signs of infection. Will continue to monitor through his BCG treatments. No nausea or vomiting. Staying hydrated. Eating good. Energy level is good. CT abdomen pelvis noncontrast showed bladder wall thickening in February 2024 and a right bladder wall mass in December 2023. C/o back pain and insomnia. Underwent transurethral resection of bladder tumor measuring approx 4cm on 02/07/24. Underwent transurethral resection of bladder tumor measuring approx 3cm and deep bladder biopsies on 02/21/24. Urologist recommended intravesical BCG treatments. 05/23/24: - Completed 6 weekly intravesical BCG treatments on 05/02/24. - Doing well - C/o back pain - No major complaints - Scheduled for cystoscopy on 06/03/24 - Tolerated well. Current Outpatient Medications Medication Sig ciprofloxacin HCl (CIPRO) 250 mg tablet Take 1 tablet by mouth two times a day for 5 days. melatonin 10 mg tab Take 1 tablet by mouth daily at bedtime. polyethylene glycol 3350 (PURELAX) 17 gram packet Take 17 g by mouth once daily. Dissolve dose in 4 - 8 ounces of liquid and take as directed. psyllium (METAMUCIL FIBER SINGLES) 3.4 gram packet Take 1 Packet by mouth once daily. Docosahexanoic Acid-Eicosapent (FISH OIL) 120-180 mg capsule Take 2 g by mouth as needed (pt states he takes this off and on). pyridoxine, vitamin B6, (VITAMIN B-6) 25 mg tablet Take 25 mg by mouth once daily as needed (pt states he takes this off and on). mecobalamin (B12 ACTIVE ORAL) Take 1 tablet by mouth once daily as needed (pt states he takes this off and on). Vitamin E, dl, acetate, (VITAMIN E) 134 mg (200 unit) Capsule Take 200 Units by mouth once daily as needed (pt states he takes this off and on). Multivitamins-Minerals -Lutein (MULTIVITAMIN 50 PLUS) tab Take 1 tablet by mouth once daily as needed (pt states he takes this off and on). magnesium chloride 64 mg magnesium tab Take 1 tablet by mouth once daily as needed (pt states he takes this off and on). levothyroxine (SYNTHROID) 137 mcg tablet Take by mouth. aspirin, enteric coated (ASPIRIN, ENTERIC COATED) 81 mg EC tablet in the morning. amLODIPine (NORVASC) 2.5 mg tablet Take 2.5 mg by mouth. carvedilol (COREG) 3.125 mg tablet Take 6.25 mg by mouth. Cholecalciferol, Vitamin D3, 50 mcg (2,000 unit) cap Take 2,000 Int'l Units by mouth. diclofenac, EC, (VOLTAREN) 50 mg EC tablet Take 50 mg by mouth. isosorbide mononitrate ER (IMDUR) 30 mg 24 hr tablet Take 15 mg by mouth once daily. mupirocin (BACTROBAN) 2 % ointment rosuvastatin (CRESTOR) 20 mg tablet Take 20 mg by mouth. tamsulosin (FLOMAX) 0.4 mg Take 0.8 mg by mouth once daily. triamcinolone acetonide (KENALOG) 0.1 % cream No current facility-administered medications for this visit. 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 Normal [facility] Reminderson 05-22-2024 Reminders Reminders From: Aylin George To: EU - Recalls Mateo; Sent: 05/22/2024 10:20:40 EST Show up: 06/14/2024 10:20:00 EST Subject: cysto/fish/cytol Due Date/Time: 07/07/2024 10:20:00 EST Reminder/Recall Patient needs cysto/fish/cytol in August 2024, 3 mo bt ck Normal [facility] Urology Office/Clinic Noteon 05-22-2024 Urology Office/Clinic Note Urology Office/Clinic Note Chief Complaint bladder pain HPI Staff Pt is here today for bladder pain for then past 3-4 days. No UTI symptoms per LG. Pt stated he is unsure if this is back related. Dx: bladder cancer, urinary retention, kidney stone, BPH with obstruction/LUTS and elevated PSA Dysuria: denies Incomplete bladder emptying: denies Hematuria: denies Frequency: less than 1 in 5x Urgency: less than 1 in 5x Nocturia: 1-2x Stream: no straining or intermittency Leaking: denies Post void dripping: a little Wearing pads/ Depends: denies Urge incontinence: denies Stress incontinence: denies Incontinence without Sensory Awareness: denies Abdominal pain: pt states slight discomfort in lower abdomen Flank pain: denies Sexual complaints: denies Review of Systems PHQ Score Initial Depression Screen Score: 0 SCORE no fever, chills, malaise, myalgia. no rash/lesions. no nausea, vomiting. Physical Exam Vitals & Measurements T: 37 ???C(Temporal Artery) HR: 60(Peripheral) RR: 16 BP: 112/68 HT: 70 in HT: 178 cm WT: 73.2 kg WT: 161.378 lb BMI: 23.1 General: nontoxic, NAD Mouth: moist mucosa Lungs: normal respiratory effort Cardio: regular rate, good distal perfusion Abdomen: nondistended, no suprapubic distention or tenderness, no CVA tenderness Neurologic: Grossly normal Skin: No rashes or suspicious lesions Assessment/Plan 1. Bladder pain (R39.89: Other symptoms and signs involving the genitourinary system) Pt says pain is pretty mild, 3/10. Comes and goes. Mostly notices it radiating from his back - says he has spinal stenosis and this is chronic. But the radiation to the RLQ/LLQ/suprapubic area is new since his TURBT. Does not get urgency or frequency w the pain. UA is negative for infection. PVR looks good. Didn't fill Myrbetriq or Gemtesa bc too expensive. Advised we could do a short trial of an anticholinergic to see if it helps at all. Pt does not wish to do this d/t risk of side effects. Pt prefers to just give it time/monitor. Told him to call if things worsen. Ordered: 29957 Measure Post Void residual urine and/or bladder capacity by US- non-imaging Urnls Dip Stick Auto w/o Microscopy POC 53010 Follow-up With When Contact Information Keep previously scheduled follow-up appointment. 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 Medications amLODIPine 2.5 mg Tab, 2.5 mg= 1 tab(s), Oral, Daily aspirin 81 mg oral tablet, Oral, Daily carvedilol 3.125 mg Tab, 6.25 mg= 2 tab(s), Oral, Daily cholecalciferol 2000 intl units oral capsule, 2000 International_Unit= 1 cap(s), Oral, Daily diclofenac sodium 50 mg Oral EC Tab, 50 mg= 1 tab(s), Oral, TID isosorbide mononitrate 30 mg ER Tab, 1/2 tab, Oral, qAM levothyroxine 137 mcg (0.137 mg) Tab, 1/2 tab(s), Oral, Daily Metamucil, Oral Nitro 0.4 mg Tab, 1 tab(s), SubLingual, q5min, PRN rosuvastatin 20 mg Tab, 20 mg= 1 tab(s), Oral, Daily tamsulosin 0.4 mg Cap, 0.4 mg= 1 cap(s), Oral, Daily Vitamin B12, See Instructions Allergies Adhesive Bandage (Blisters) Social History Alcohol - Denies Alcohol Use, 01/15/2019 Never., 05/22/2024 Substance Abuse - Denies Substance Abuse, 01/15/2019 Never., 05/22/2024 Tobacco Never (less than 100 in lifetime) Tobacco Use:. Household tobacco concerns: No., 05/22/2024 Family History Bilateral primary ovarian cancer: Mother. Immunizations Vaccine Date Status Comments influenza virus vaccine, inactivated 03/26/2023 Recorded SARSCoV2 mRNA(ykmrquwwz-gasm-ln cros) vac 09/16/2021 Recorded 2023-12-25: TPV80 SARS-CoV-2 (COVID-19) mRNA BNT-162b2 vax 02/24/2021 Recorded 2023-12-25: TPV80 influenza virus vaccine, inactivated 02/18/2021 Recorded SARS-CoV-2 (COVID-19) mRNA BNT-162b2 vax 06/30/2020 Recorded SARS-CoV-2 (COVID-19) mRNA BNT-162b2 vax 06/07/2020 Recorded influenza virus vaccine, inactivated 04/05/2020 Recorded influenza virus vaccine, inactivated 03/07/2019 Recorded influenza virus vaccine, inactivated - Not Given Patient Refuses Will obtain from primary care physician influenza virus vaccine, inactivated 04/13/2017 Recorded influenza virus vaccine, inactivated 02/12/2017 Recorded pneumococcal 23-valent vaccine 11/13/2016 Recorded influenza virus vaccine, in (more content not included)... Normal [facility] Comment on above: Result Comment: Elec tronically Signed By: BRISA FULLER PA-C\.br\Date and Time Signed: 05/22/24 15:16 EST Christen 05-20-2024 CNPN Telephone ([place]) KINGSLEY JENNINGS ([id number]) 1935 M Date Time Provider Department 05/20/24 LIANA MCGHEE During your visit today, we recorded the following information about you: Liana Mcghee RN 05/20/2024 9:11 AM Signed Pt calls stating he's taking his last cipro today, and wants to know if he should be continuing on this? Pt states he does not have any s/s of UTI at this time. Explained to pt that we do not usually continue on cipro unless there is an active infection or pt is having s/s of infection. Pt verbalized understanding. Please advise if you have other recommendations. Thanks KANDIS Sauer Adarsh, MD 05/20/2024 9:23 AM Signed No need to continue cipro. Thanks. Allergies As of Date: 05/20/2024 Noted Allergy Reaction FLUOROURACIL-ADHESIVE BANDAGE 03/11/2024 14 - Other: See Comments Date Reviewed: 05/02/2024 Reviewed by: Hilaria Wilson MA - Fully Assessed Reason for Visit: Care Coordination [3491] Cmt: Medication question Prescriptions as of 05/20/2024 - ciprofloxacin HCl (CIPRO) 250 mg tablet Take 1 tablet by mouth two times a day for 5 days. - melatonin 10 mg tab Take 1 tablet by mouth daily at bedtime. - polyethylene glycol 3350 (PURELAX) 17 gram packet Take 17 g by mouth once daily. Dissolve dose in 4 - 8 ounces of liquid and take as directed. - psyllium (METAMUCIL FIBER SINGLES) 3.4 gram packet Take 1 Packet by mouth once daily. - Docosahexanoic Acid-Eicosapent (FISH OIL) 120-180 mg capsule Take 2 g by mouth as needed (pt states he takes this off and on). - pyridoxine, vitamin B6, (VITAMIN B-6) 25 mg tablet Take 25 mg by mouth once daily as needed (pt states he takes this off and on). - mecobalamin (B12 ACTIVE ORAL) Take 1 tablet by mouth once daily as needed (pt states he takes this off and on). - Vitamin E, dl, acetate, (VITAMIN E) 134 mg (200 unit) Capsule Take 200 Units by mouth once daily as needed (pt states he takes this off and on). - Multivitamins-Minerals -Lutein (MULTIVITAMIN 50 PLUS) tab Take 1 tablet by mouth once daily as needed (pt states he takes this off and on). - magnesium chloride 64 mg magnesium tab Take 1 tablet by mouth once daily as needed (pt states he takes this off and on). - levothyroxine (SYNTHROID) 137 mcg tablet Take by mouth. - aspirin, enteric coated (ASPIRIN, ENTERIC COATED) 81 mg EC tablet in the morning. - amLODIPine (NORVASC) 2.5 mg tablet Take 2.5 mg by mouth. - carvedilol (COREG) 3.125 mg tablet Take 6.25 mg by mouth. - Cholecalciferol, Vitamin D3, 50 mcg (2,000 unit) cap Take 2,000 Int'l Units by mouth. - diclofenac, EC, (VOLTAREN) 50 mg EC tablet Take 50 mg by mouth. - isosorbide mononitrate ER (IMDUR) 30 mg 24 hr tablet Take 15 mg by mouth once daily. - mupirocin (BACTROBAN) 2 % ointment - rosuvastatin (CRESTOR) 20 mg tablet Take 20 mg by mouth. - tamsulosin (FLOMAX) 0.4 mg Take 0.8 mg by mouth once daily. - triamcinolone acetonide (KENALOG) 0.1 % cream Problem List As Of Date 05/20/2024 Noted Resolved Bladder cancer (HCC) [C67.9] 03/17/2024 Encounter Status:Closed by LIANA MCGHEE on 05/20/24 Normal [facility] Reminderson 05-20-2024 Reminders Reminders From: Aylin George To: EU - Recalls Galindo; Sent: 02/29/2024 15:19:27 EDT Show up: 03/14/2024 15:19:00 EDT Subject: cysto/fish/cytol Due Date/Time: 04/07/2024 15:19:00 EST Reminder/Recall Patient will need Cysto/FISH/cytol in May 2024 (1 month after BCG tx) Spoke to pt, sched for 06/03/24 in [place]. [facility] CNPMary Lou 05-15-2024 CNPN Telephone ([place]) KINGSLEY JENNINGS ([id number]) 1935 M Date Time Provider Department 05/15/24 LIANA MCGHEE [place] During your visit today, we recorded the following information about you: Liana Mcghee RN 05/15/2024 4:58 PM Signed Pt calling requesting results of urinalysis. Pt states he continues to have symptoms. Please advise KANDIS Sauer Adarsh, MD 05/16/2024 8:22 AM Signed I need urine culture results. Send cipro 500mg daily for 5 days. Thanks. Jacek Caon MD 05/16/2024 10:10 AM Signed I sent ciprofloxacin to pharmacy. Please tell him to take it. Thanks Liana Mcghee RN 05/16/2024 11:16 AM Signed Call placed to pt and due to the snow, he'd like this filled at his local pharmacy because our office is too far to drive. Script called to [facility] in [place]. A culture was not ordered. Per lab we cannot add a culture to this specimen. Is it ok for pt to get started on antibiotics since he's symptomatic and he's not able to come to the office due to the snow? Please advise KANDIS Sauer Adarsh, MD 05/16/2024 11:42 AM Signed Yes, ok to start antibiotics. Thanks Laina Mcghee RN 05/16/2024 3:10 PM Signed Pt planned on picking this up today and starting it. Liana Mcghee RN Allergies As of Date: 05/15/2024 Noted Allergy Reaction FLUOROURACIL-ADHESIVE BANDAGE 03/11/2024 14 - Other: See Comments Date Reviewed: 05/02/2024 Reviewed by: Hilaria Wilson MA - Fully Assessed Reason for Visit: Care Coordination [7521] Cmt: results Order(s):ciprofloxacin HCl (CIPRO) 250 mg tabletTake 1 tablet by mouth two times a day for 5 days.Disp: 10 tabletRfl: 0 Prescriptions as of 05/16/2024 - ciprofloxacin HCl (CIPRO) 250 mg tablet Take 1 tablet by mouth two times a day for 5 days. - melatonin 10 mg tab Take 1 tablet by mouth daily at bedtime. - polyethylene glycol 3350 (PURELAX) 17 gram packet Take 17 g by mouth once daily. Dissolve dose in 4 - 8 ounces of liquid and take as directed. - psyllium (METAMUCIL FIBER SINGLES) 3.4 gram packet Take 1 Packet by mouth once daily. - Docosahexanoic Acid-Eicosapent (FISH OIL) 120-180 mg capsule Take 2 g by mouth as needed (pt states he takes this off and on). - pyridoxine, vitamin B6, (VITAMIN B-6) 25 mg tablet Take 25 mg by mouth once daily as needed (pt states he takes this off and on). - mecobalamin (B12 ACTIVE ORAL) Take 1 tablet by mouth once daily as needed (pt states he takes this off and on). - Vitamin E, dl, acetate, (VITAMIN E) 134 mg (200 unit) Capsule Take 200 Units by mouth once daily as needed (pt states he takes this off and on). - Multivitamins-Minerals -Lutein (MULTIVITAMIN 50 PLUS) tab Take 1 tablet by mouth once daily as needed (pt states he takes this off and on). - magnesium chloride 64 mg magnesium tab Take 1 tablet by mouth once daily as needed (pt states he takes this off and on). - levothyroxine (SYNTHROID) 137 mcg tablet Take by mouth. - aspirin, enteric coated (ASPIRIN, ENTERIC COATED) 81 mg EC tablet in the morning. - amLODIPine (NORVASC) 2.5 mg tablet Take 2.5 mg by mouth. - carvedilol (COREG) 3.125 mg tablet Take 6.25 mg by mouth. - Cholecalciferol, Vitamin D3, 50 mcg (2,000 unit) cap Take 2,000 Int'l Units by mouth. - diclofenac, EC, (VOLTAREN) 50 mg EC tablet Take 50 mg by mouth. - isosorbide mononitrate ER (IMDUR) 30 mg 24 hr tablet Take 15 mg by mouth once daily. - mupirocin (BACTROBAN) 2 % ointment - rosuvastatin (CRESTOR) 20 mg tablet Take 20 mg by mouth. - tamsulosin (FLOMAX) 0.4 mg Take 0.8 mg by mouth once daily. - triamcinolone acetonide (KENALOG) 0.1 % cream Problem List As Of Date 05/15/2024 Noted Resolved Bladder cancer (HCC) [C67.9] 03/17/2024 Prescriptions ordered this encounter Disp Refills Start End CIPROFLOXACIN 250 MG TABLET 10 t* 0 05/16/2024 05/21/2024 Route: ORAL Sig: Take 1 tablet by mouth two times a day for 5 days. Encounter Status:Closed by LIANA MCGHEE on 05/16/24 [facility] Christen 05-12-2024 RAYMON Telephone ([employer]) KINGSLEY JENNINGS ([id number]) 1935 M Date Time Provider Department 05/12/24 LIANA MCGHEE During your visit today, we recorded the following information about you: Liana Mcghee RN 05/12/2024 8:50 AM Signed Pt calls stating he has pain and burning that starts in his bladder and goes all the way out his urinary tract. This started last and is continuing to get worse. Please advise KANDIS Sauer Adarsh, MD 05/12/2024 9:05 AM Signed Check urinalysis and urine culture. Thanks. Liana Mcghee RN 05/12/2024 9:40 AM Signed Pt states he'll come here to our office soon. AV: please place orders PSS: please add pt to lab schedule for 1015 Thanks KANDIS Sauer Kristen 05/12/2024 9:45 AM Signed Patient has been scheduled for labs today 05/12 @ 10:15 Jacek Brown MD 05/12/2024 9:52 AM Signed I ordered urinalysis with culture. Thanks Allergies As of Date: 05/12/2024 Noted Allergy Reaction FLUOROURACIL-ADHESIVE BANDAGE 03/11/2024 14 - Other: See Comments Date Reviewed: 05/02/2024 Reviewed by: Hilaria Wilson MA - Fully Assessed Reason for Visit: Care Coordination [3421] Cmt: Pain in bladder Primary Visit Diagnosis:Malignant neoplasm of urinary bladder, unspecified site (HCC) [C67.9] Order(s):URINALYSIS WITH MICROSCOPIC, REFLEX CULTURE [SQUACII] Order #: [id number] FUTURE Prescriptions as of 05/12/2024 - melatonin 10 mg tab Take 1 tablet by mouth daily at bedtime. - polyethylene glycol 3350 (PURELAX) 17 gram packet Take 17 g by mouth once daily. Dissolve dose in 4 - 8 ounces of liquid and take as directed. - psyllium (METAMUCIL FIBER SINGLES) 3.4 gram packet Take 1 Packet by mouth once daily. - Docosahexanoic Acid-Eicosapent (FISH OIL) 120-180 mg capsule Take 2 g by mouth as needed (pt states he takes this off and on). - pyridoxine, vitamin B6, (VITAMIN B-6) 25 mg tablet Take 25 mg by mouth once daily as needed (pt states he takes this off and on). - mecobalamin (B12 ACTIVE ORAL) Take 1 tablet by mouth once daily as needed (pt states he takes this off and on). - Vitamin E, dl, acetate, (VITAMIN E) 134 mg (200 unit) Capsule Take 200 Units by mouth once daily as needed (pt states he takes this off and on). - Multivitamins-Minerals -Lutein (MULTIVITAMIN 50 PLUS) tab Take 1 tablet by mouth once daily as needed (pt states he takes this off and on). - magnesium chloride 64 mg magnesium tab Take 1 tablet by mouth once daily as needed (pt states he takes this off and on). - levothyroxine (SYNTHROID) 137 mcg tablet Take by mouth. - aspirin, enteric coated (ASPIRIN, ENTERIC COATED) 81 mg EC tablet in the morning. - amLODIPine (NORVASC) 2.5 mg tablet Take 2.5 mg by mouth. - carvedilol (COREG) 3.125 mg tablet Take 6.25 mg by mouth. - Cholecalciferol, Vitamin D3, 50 mcg (2,000 unit) cap Take 2,000 Int'l Units by mouth. - diclofenac, EC, (VOLTAREN) 50 mg EC tablet Take 50 mg by mouth. - isosorbide mononitrate ER (IMDUR) 30 mg 24 hr tablet Take 15 mg by mouth once daily. - mupirocin (BACTROBAN) 2 % ointment - rosuvastatin (CRESTOR) 20 mg tablet Take 20 mg by mouth. - tamsulosin (FLOMAX) 0.4 mg Take 0.8 mg by mouth once daily. - triamcinolone acetonide (KENALOG) 0.1 % cream Problem List As Of Date 05/12/2024 Noted Resolved Bladder cancer (HCC) [C67.9] 03/17/2024 Encounter Status:Closed by LIANA MCGHEE on 05/12/24 Normal [facility] Urinalysis complete panel (U )on 05-12-2024 Bacteria LM.HPF (Urine sed) [#/Area] Negative Normal Negative [facility] Comment on above: Order Comment: Speci men Type: URINE SPECIMENOrdering Facility: Address: [address] [place] [address] Performed By: #### 2 4356-8 ####[facility] LABCLIA [id number] [place] [address] [place] Bilirubin Ql (U) Negative Normal Negative [facility] Comment on above: Order Comment: Speci men Type: URINE SPECIMENOrdering Facility: Address: [address] [place] [address] Performed By: #### 2 4356-8 ####[facility]CLIA [id number] [place] [address] [place] Clarity (Unsp spec) Clear Normal Clear [facility] Comment on above: Order Comment: Speci men Type: URINE SPECIMENOrdering Facility: Address: [address] [place] [address] Performed By: #### 2 4356-8 ####[facility] LABIA [id number] [place] [address] [place] Color (U) Yellow Normal Yellow [facility] Comment on above: Order Comment: Speci men Type: URINE SPECIMENOrdering Facility: Address: [address] [place] [address] Performed By: #### 2 4356-8 ####[facility]CLIA [id number] [place] [address] [place] Epithelial cells LM.HPF (Urine sed) [#/Area] None Seen Normal [facility] Comment on above: Order Comment: Speci men Type: URINE SPECIMENOrdering Facility: Address: [address] [place] [address] Performed By: #### 2 4356-8 ####[facility]CLIA [id number] [place] [address] [place] Glucose Test strip (U) [Mass/Vol] Negative Normal Negative [facility] Comment on above: Order Comment: Speci men Type: URINE SPECIMENOrdering Facility: Address: [address] [place] [address] Performed By: #### 2 4356-8 ####[facility] LABCLIA [id number] [place] [address] [place] Hemoglobin Ql (U) Negative Normal Negative [facility] Comment on above: Order Comment: Speci men Type: URINE SPECIMENOrdering Facility: Address: [address] [place] [address] Performed By: #### 2 4356-8 ####[facility] LABCLIA [id number] [place] [address] [place] Hyaline casts (Urine sed) [#/Area] 0 /[LPF] Normal 0 /LPF [facility] Comment on above: Order Comment: Speci men Type: URINE SPECIMENOrdering Facility: Address: [address] [place] [address] Performed By: #### 2 4356-8 ####[facility] LABCLIA [id number] [place] [address] [place] Ketones Ql (U) Negative Normal Negative [facility] Comment on above: Order Comment: Speci men Type: URINE SPECIMENOrdering Facility: Address: [address] [place] [address] Performed By: #### 2 4356-8 ####[facility] LABCLIA [id number] [place] [address] [place] Leukocyte esterase Test strip Ql (U) 1+ Abnormal Negative [facility] Comment on above: Order Comment: Speci men Type: URINE SPECIMENOrdering Facility: Address: [address] [place] [address] Performed By: #### 2 4356-8 ####[facility] LABCLIA [id number] [place] [address] [place] [place] Nitrite Ql (U) Negative Normal Negative [facility] Comment on above: Order Comment: Speci men Type: URINE SPECIMENOrdering Facility: Address: [address] [place] [address] Performed By: #### 2 4356-8 ####[facility] LABCLIA [id number] [place] [address] [place] pH (U) 5.5 [pH] Normal <8.5 [facility] Comment on above: Order Comment: Speci men Type: URINE SPECIMENOrdering Facility: Address: [address] [place] [address] Performed By: #### 2 4356-8 ####[facility] LABCLIA [id number] [place] [address] [place] Protein (U) [Mass/Vol] Negative Normal Negative [facility] Comment on above: Order Comment: Speci men Type: URINE SPECIMENOrdering Facility: Address: [address] [place] [address] Performed By: #### 2 4356-8 ####[facility] LABCLIA [id number] [place] [address] [place] RBC LM.HPF (Urine sed) [#/Area] 0-2 /HPF Normal 0-2 /HPF [facility] Comment on above: Order Comment: Speci men Type: URINE SPECIMENOrdering Facility: Address: [address] [place] [address] Performed By: #### 2 4356-8 ####[facility] LABCLIA [id number] [place] [address] [place] Specific gravity (U) [Rel density] 1.013 Normal 1.005-1.030 [facility] Comment on above: Order Comment: Speci men Type: URINE SPECIMENOrdering Facility: Address: [address] [place] [address] Performed By: #### 2 4356-8 ####[facility] LABCLIA [id number] [place] [address] [place] Urobilinogen Ql (U) 0.2 EU/dL Normal 0.2-1.0 EU/dL [facility] Comment on above: Order Comment: Speci men Type: URINE SPECIMENOrdering Facility: Address: [address] [place] [address] Performed By: #### 2 4356-8 ####[facility] LABCLIA [id number] [place] [address] [place] WBC LM.HPF (Urine sed) [#/Area] 6-10 /HPF Abnormal 0-5 /HPF [facility] Comment on above: Order Comment: Speci men Type: URINE SPECIMENOrdering Facility: Address: [address] [place] [address] Performed By: #### 2 4356-8 ####[facility] LABIA [id number] [place] [address] [place] CBC W Auto Differential pane l (Bld)on 05-02-2024 Basophils (Bld) [#/Vol] 0.04 10*3/uL Normal <0.11 [facility] Comment on above: Order Comment: Speci men Type: BLOOD SPECIMENOrdering Facility: Address: [address] [place] [address] Performed By: #### 5 7021-8 ####[facility] LABCLIA [id number] [place] [address] Basophils/100 WBC (Bld) 0.8 % Normal [facility] Comment on above: Order Comment: Speci men Type: BLOOD SPECIMENOrdering Facility: Address: [address] [place] [address] Performed By: #### 5 7021-8 ####[facility] LABCLIA [id number] [place] [address] Differential cell count method Nom (Bld) Auto Normal [facility] Comment on above: Order Comment: Speci men Type: BLOOD SPECIMENOrdering Facility: Address: [address] [place] [address] Performed By: #### 5 7021-8 ####[facility] LABCLIA [id number] [place] [address] Eosinophils (Bld) [#/Vol] 0.19 10*3/uL Normal <0.46 [facility] Comment on above: Order Comment: Speci men Type: BLOOD SPECIMENOrdering Facility: Address: [address] [place] [address] Performed By: #### 5 7021-8 ####[facility] LABCLIA [id number] [place] [address] Eosinophils/100 WBC (Bld) 3.9 % Normal [facility] Comment on above: Order Comment: Speci men Type: BLOOD SPECIMENOrdering Facility: Address: [address] [place] [address] Performed By: #### 5 7021-8 ####[facility] LABCLIA [id number] [place] [address] Erythrocyte distribution width (RBC) [Ratio] 13.5 % Normal 11.5-15.0 [facility] Comment on above: Order Comment: Speci men Type: BLOOD SPECIMENOrdering Facility: Address: [address] [place] [address] Performed By: #### 5 7021-8 ####[facility] LABCLIA [id number] [place] [address] Hematocrit (Bld) [Volume fraction] 37.9 % Low 39.0-51.0 [facility] Comment on above: Order Comment: Speci men Type: BLOOD SPECIMENOrdering Facility: Address: [address] [place] [address] Performed By: #### 5 7021-8 ####[facility] LABCLIA [id number] [place] [address] Hemoglobin (Bld) [Mass/Vol] 12.8 g/dL Low 13.0-17.0 [facility] Comment on above: Order Comment: Speci men Type: BLOOD SPECIMENOrdering Facility: Address: [address] [place] [address] Performed By: #### 5 7021-8 ####[facility] LABIA [id number] [place] [address] Immature granulocytes (Bld) [#/Vol] 10*3/uL Normal <0.10 [facility] Comment on above: Order Comment: Speci men Type: BLOOD SPECIMENOrdering Facility: Address: [address] [place] [address] Performed By: #### 5 7021-8 ####[facility] LABCLIA [id number] [place] [address] Immature granulocytes/100 WBC (Bld) 0.2 % Normal [facility] Comment on above: Order Comment: Speci men Type: BLOOD SPECIMENOrdering Facility: Address: [address] [place] [address] Performed By: #### 5 7021-8 ####[facility] LABIA [id number] [place] [address] Lymphocytes (Bld) [#/Vol] 1.08 10*3/uL Normal 1.00-4.00 [facility] Comment on above: Order Comment: Speci men Type: BLOOD SPECIMENOrdering Facility: Address: [address] [place] [address] Performed By: #### 5 7021-8 ####[facility] LABCLIA [id number] [place] [address] Lymphocytes/100 WBC (Bld) 22.2 % Normal [facility] Comment on above: Order Comment: Speci men Type: BLOOD SPECIMENOrdering Facility: Address: [address] [place] [address] Performed By: #### 5 7021-8 ####[facility] LABCLIA [id number] [place] [address] MCH (RBC) [Entitic mass] 32.3 pg Normal 26.0-34.0 [facility] Comment on above: Order Comment: Speci men Type: BLOOD SPECIMENOrdering Facility: Address: [address] [place] [address] Performed By: #### 5 7021-8 ####[facility] LABIA [id number] [place] [address] MCHC (RBC) [Mass/Vol] 33.8 g/dL Normal 30.5-36.0 [facility] Comment on above: Order Comment: Speci men Type: BLOOD SPECIMENOrdering Facility: Address: [address] [place] [address] Performed By: #### 5 7021-8 ####[facility] LABCLIA [id number] [place] [address] MCV (RBC) [Entitic vol] 95.7 fL Normal 80.0-100.0 [facility] Comment on above: Order Comment: Speci men Type: BLOOD SPECIMENOrdering Facility: Address: [address] [place] [address] Performed By: #### 5 7021-8 ####[facility] LABIA [id number] [place] [address] Monocytes (Bld) [#/Vol] 0.67 10*3/uL Normal <0.87 [facility] Comment on above: Order Comment: Speci men Type: BLOOD SPECIMENOrdering Facility: Address: [address] [place] [address] Performed By: #### 5 7021-8 ####[facility] LABCLIA [id number] [place] [address] Monocytes/100 WBC (Bld) 13.8 % Normal [facility] Comment on above: Order Comment: Speci men Type: BLOOD SPECIMENOrdering Facility: Address: [address] [place] [address] Performed By: #### 5 7021-8 ####[facility] LABCLIA [id number] [place] [address] Neutrophils (Bld) [#/Vol] 2.88 10*3/uL Normal 1.45-7.50 [facility] Comment on above: Order Comment: Speci men Type: BLOOD SPECIMENOrdering Facility: Address: [address] [place] [address] Performed By: #### 5 7021-8 ####[facility] LABCLIA [id number] [place] [address] Neutrophils/100 WBC (Bld) 59.1 % Normal [facility] Comment on above: Order Comment: Speci men Type: BLOOD SPECIMENOrdering Facility: Address: [address] [place] [address] Performed By: #### 5 7021-8 ####[facility] LABCLIA [id number] [place] [address] Nucleated RBC (Bld) [#/Vol] 10*3/uL Normal <0.01 [facility] Comment on above: Order Comment: Speci men Type: BLOOD SPECIMENOrdering Facility: Address: [address] [place] [address] Performed By: #### 5 7021-8 ####[facility] LABCLIA [id number] [place] [address] Nucleated RBC/100 WBC (Bld) [Ratio] 0.0 /100 WBC Normal [facility] Comment on above: Order Comment: Speci men Type: BLOOD SPECIMENOrdering Facility: Address: [address] [place] [address] Performed By: #### 5 7021-8 ####[facility] LABCLIA [id number] [place] [address] Platelet mean volume (Bld) [Entitic vol] 9.6 fL Normal 9.0-12.7 [facility] Comment on above: Order Comment: Speci men Type: BLOOD SPECIMENOrdering Facility: Address: [address] [place] [address] Performed By: #### 5 7021-8 ####[facility] LABCLIA [id number] [place] [address] Platelets (Bld) [#/Vol] 148 10*3/uL Low 150-400 [facility] Comment on above: Order Comment: Speci men Type: BLOOD SPECIMENOrdering Facility: Address: [address] [place] [address] Performed By: #### 5 7021-8 ####[facility] LABCLIA [id number] [place] [address] RBC (Bld) [#/Vol] 3.96 10*6/uL Low 4.20-6.00 [facility] Comment on above: Order Comment: Speci men Type: BLOOD SPECIMENOrdering Facility: Address: [address] [place] [address] Performed By: #### 5 7021-8 ####[facility] LABCLIA [id number] [place] [address] WBC (Bld) [#/Vol] 4.87 10*3/uL Normal 3.70-11.00 [facility] Comment on above: Order Comment: Speci men Type: BLOOD SPECIMENOrdering Facility: Address: [address] [place] [address] Performed By: #### 5 7021-8 ####[facility] LABCLIA [id number] [place] [address] CNNURSEon 05-02-2024 CNNURSE Nurse Visit (HEMASA) KINGSLEY JENNINGS ([id number]) 1935 M Date Time Provider Department 05/02/24 9:15 AM LIZBET NURSE KYLE PONCE During your visit today, we recorded the following information about you: Hilaria Wilson MA 05/02/2024 8:49 AM Signed UA performed as ordered. Hilaria Wilson MA Allergies As of Date: 05/02/2024 Noted Allergy Reaction FLUOROURACIL-ADHESIVE BANDAGE 03/11/2024 14 - Other: See Comments Date Reviewed: 05/02/2024 Reviewed by: Hilaria Wilson MA - Fully Assessed Reason for Visit: Bladder Cancer [515] Primary Visit Diagnosis:Malignant neoplasm of urinary bladder, unspecified site (HCC) [C67.9] Order(s):UA DIP, URINE (POC) [3573503] Order #: [id number]. #:[id number] Prescriptions as of 05/02/2024 - melatonin 10 mg tab Take 1 tablet by mouth daily at bedtime. - polyethylene glycol 3350 (PURELAX) 17 gram packet Take 17 g by mouth once daily. Dissolve dose in 4 - 8 ounces of liquid and take as directed. - psyllium (METAMUCIL FIBER SINGLES) 3.4 gram packet Take 1 Packet by mouth once daily. - Docosahexanoic Acid-Eicosapent (FISH OIL) 120-180 mg capsule Take 2 g by mouth as needed (pt states he takes this off and on). - pyridoxine, vitamin B6, (VITAMIN B-6) 25 mg tablet Take 25 mg by mouth once daily as needed (pt states he takes this off and on). - mecobalamin (B12 ACTIVE ORAL) Take 1 tablet by mouth once daily as needed (pt states he takes this off and on). - Vitamin E, dl, acetate, (VITAMIN E) 134 mg (200 unit) Capsule Take 200 Units by mouth once daily as needed (pt states he takes this off and on). - Multivitamins-Minerals -Lutein (MULTIVITAMIN 50 PLUS) tab Take 1 tablet by mouth once daily as needed (pt states he takes this off and on). - magnesium chloride 64 mg magnesium tab Take 1 tablet by mouth once daily as needed (pt states he takes this off and on). - levothyroxine (SYNTHROID) 137 mcg tablet Take by mouth. - aspirin, enteric coated (ASPIRIN, ENTERIC COATED) 81 mg EC tablet in the morning. - amLODIPine (NORVASC) 2.5 mg tablet Take 2.5 mg by mouth. - carvedilol (COREG) 3.125 mg tablet Take 6.25 mg by mouth. - Cholecalciferol, Vitamin D3, 50 mcg (2,000 unit) cap Take 2,000 Int'l Units by mouth. - diclofenac, EC, (VOLTAREN) 50 mg EC tablet Take 50 mg by mouth. - isosorbide mononitrate ER (IMDUR) 30 mg 24 hr tablet Take 15 mg by mouth once daily. - mupirocin (BACTROBAN) 2 % ointment - rosuvastatin (CRESTOR) 20 mg tablet Take 20 mg by mouth. - tamsulosin (FLOMAX) 0.4 mg Take 0.8 mg by mouth once daily. - triamcinolone acetonide (KENALOG) 0.1 % cream Problem List As Of Date 05/02/2024 Noted Resolved Bladder cancer (HCC) [C67.9] 03/17/2024 Encounter Status:Closed by HILARIA WILSON on 05/02/24 [facility] CNOVSPon 05-02-2024 CNOVSP Visit (SP) Office ([facility]) KINGSLEY JENNINGS ([id number]) 1935 M Date Time Provider Department 05/02/24 8:30 AM SELENA DONNELLY During your visit today, we recorded the following information about you: Temperature Pulse Respiration Blood pressure 97.2 degrees 55/minute 18/minute 143/68 Weight 75.2 kg Selena Donnelly APRN.[facility] 05/02/2024 11:28 AM Signed PATIENT NAME: Kingsley Jennings CLINIC NO.: [id number] ATTENDING PHYSICIAN: Jacek Cano MD DATE OF SERVICE: May 02, [address] Eusebia Galindo [address] [place] [id number] thank you for referring Kingsley Jennings for an opinion regarding bladder cancer. 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 Interval History: Patient here for consideration of week 6 of BCG. Patient denies any urinary symptoms. UA in the office today was negative. We will proceed with BCG. Patient's son is here with him today reviewed precautions and education for BCG. Overall patient is feeling well. No signs of infection. Will continue to monitor through his BCG treatments. No nausea or vomiting. Staying hydrated. Eating good. Energy level is good. CT abdomen pelvis noncontrast showed bladder wall thickening in February 2024 and a right bladder wall mass in December 2023. C/o back pain and insomnia. Underwent transurethral resection of bladder tumor measuring approx 4cm on 02/07/24. Underwent transurethral resection of bladder tumor measuring approx 3cm and deep bladder biopsies on 02/21/24. Urologist recommended intravesical BCG treatments. Current Outpatient Medications Medication Sig melatonin 10 mg tab Take 1 tablet by mouth daily at bedtime. polyethylene glycol 3350 (PURELAX) 17 gram packet Take 17 g by mouth once daily. Dissolve dose in 4 - 8 ounces of liquid and take as directed. psyllium (METAMUCIL FIBER SINGLES) 3.4 gram packet Take 1 Packet by mouth once daily. Docosahexanoic Acid-Eicosapent (FISH OIL) 120-180 mg capsule Take 2 g by mouth as needed (pt states he takes this off and on). pyridoxine, vitamin B6, (VITAMIN B-6) 25 mg tablet Take 25 mg by mouth once daily as needed (pt states he takes this off and on). mecobalamin (B12 ACTIVE ORAL) Take 1 tablet by mouth once daily as needed (pt states he takes this off and on). Vitamin E, dl, acetate, (VITAMIN E) 134 mg (200 unit) Capsule Take 200 Units by mouth once daily as needed (pt states he takes this off and on). Multivitamins-Minerals -Lutein (MULTIVITAMIN 50 PLUS) tab Take 1 tablet by mouth once daily as needed (pt states he takes this off and on). magnesium chloride 64 mg magnesium tab Take 1 tablet by mouth once daily as needed (pt states he takes this off and on). levothyroxine (SYNTHROID) 137 mcg tablet Take by mouth. aspirin, enteric coated (ASPIRIN, ENTERIC COATED) 81 mg EC tablet in the morning. amLODIPine (NORVASC) 2.5 mg tablet Take 2.5 mg by mouth. carvedilol (COREG) 3.125 mg tablet Take 6.25 mg by mouth. Cholecalciferol, Vitamin D3, 50 mcg (2,000 unit) cap Take 2,000 Int'l Units by mouth. diclofenac, EC, (VOLTAREN) 50 mg EC tablet Take 50 mg by mouth. isosorbide mononitrate ER (IMDUR) 30 mg 24 hr tablet Take 15 mg by mouth once daily. mupirocin (BACTROBAN) 2 % ointment rosuvastatin (CRESTOR) 20 mg tablet Take 20 mg by mouth. tamsulosin (FLOMAX) 0.4 mg Take 0.8 mg by mouth once daily. triamcinolone acetonide (KENALOG) 0.1 % cream No current facility-administered medications for this visit. 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 Social History Substance Use Topics Alcohol use: Not Currently Comment: denies alcohol use 01/15/2019 REVIEW OF SYSTEMS GENERAL: No weight loss, malaise or fevers. No night sweats. HEENT: Negative for headaches, No changes in hearing or vision, no nose bleeds or other nasal problems. RESPIRATORY: Negative for cough, wheezing and shortnes (more content not included)... Normal [facility] Comprehensive metabolic 2000 panelon 05-02-2024 Albumin [Mass/Vol] 4.0 g/dL Normal 3.9-4.9 [facility] Comment on above: Order Comment: Speci men Type: BLOOD SPECIMENOrdering Facility: Address: [address] [place] [address] Performed By: #### 2 4323-8 ####[facility] LABCLIA [id number] [place] [address] ALP [Catalytic activity/Vol] 68 U/L Normal 38-113 [facility] Comment on above: Order Comment: Speci men Type: BLOOD SPECIMENOrdering Facility: Address: [address] [place] [address] Performed By: #### 2 4323-8 ####[facility] LABCLIA [id number] [place] [address] ALT [Catalytic activity/Vol] 27 U/L Normal 10-54 [facility] Comment on above: Order Comment: Speci men Type: BLOOD SPECIMENOrdering Facility: Address: [address] [place] [address] Performed By: #### 2 4323-8 ####[facility] LABCLIA [id number] [place] [address] Anion gap [Moles/Vol] 7 mmol/L Low 8-15 [facility] Comment on above: Order Comment: Speci men Type: BLOOD SPECIMENOrdering Facility: Address: [address] [place] [address] Performed By: #### 2 4323-8 ####[facility] LABCLIA [id number] [place] [address] AST [Catalytic activity/Vol] 24 U/L Normal 14-40 [facility] Comment on above: Order Comment: Speci men Type: BLOOD SPECIMENOrdering Facility: Address: [address] [place] [address] Performed By: #### 2 4323-8 ####[facility] LABCLIA [id number] [place] [address] Bilirubin [Mass/Vol] 0.6 mg/dL Normal 0.2-1.3 [facility] Comment on above: Order Comment: Speci men Type: BLOOD SPECIMENOrdering Facility: Address: [address] [place] [address] Performed By: #### 2 4323-8 ####[facility] LABCLIA [id number] [place] [address] Calcium [Mass/Vol] 10.2 mg/dL Normal 8.5-10.2 [facility] Comment on above: Order Comment: Speci men Type: BLOOD SPECIMENOrdering Facility: Address: [address] [place] [address] Performed By: #### 2 4323-8 ####[facility] LABCLIA [id number] [place] [address] Chloride [Moles/Vol] 106 mmol/L Normal 98-107 [facility] Comment on above: Order Comment: Speci men Type: BLOOD SPECIMENOrdering Facility: Address: [address] [place] [address] Performed By: #### 2 4323-8 ####[facility] LABCLIA [id number] [place] [address] CO2 [Moles/Vol] 26 mmol/L Normal 22-30 [facility] Comment on above: Order Comment: Speci men Type: BLOOD SPECIMENOrdering Facility: Address: [address] [place] [address] Performed By: #### 2 4323-8 ####[facility] LABCLIA [id number] [place] [address] Creatinine [Mass/Vol] 0.99 mg/dL Normal 0.73-1.22 [facility] Comment on above: Order Comment: Speci men Type: BLOOD SPECIMENOrdering Facility: Address: [address] [place] [address] Performed By: #### 2 4323-8 ####[facility] LABCLIA [id number] [place] [address] Creatinine and Glomerular filtration rate.predicted panel (S/P/Bld) 73 mL/min/1.73m??? Normal >=60 [facility] Comment on above: Order Comment: Speci men Type: BLOOD SPECIMENOrdering Facility: Address: [address] [place] [address] Result Comment: Lorin mated Glomerular Filtration Rate (eGFR) is calculated using the 2020 CKD-EPI creatinine equation. This equation utilizes serum creatinine, sex, and age as parameters. The creatinine assay has traceable calibration to isotope dilution-mass spectrometry. Refer to KDIGO guidelines for clinical interpretation. In patients with unstable renal function, e.g. those with acute kidney injury, the eGFR may not accurately reflect actual GFR. Performed By: #### 2 4323-8 ####[facility] LABCLIA [id number] [place] [address] Glucose [Mass/Vol] 86 mg/dL Normal 74-99 [facility] Comment on above: Order Comment: Speci men Type: BLOOD SPECIMENOrdering Facility: Address: [address] [id number] Result Comment: The [place] [employer] (ADA) provides guidance for cutoff values for fasting glucose and random glucose. The ADA defines fasting as no caloric intake for at least 8 hours. Fasting plasma glucose results between 100 to 125 mg/dL indicate increased risk for diabetes (prediabetes). Fasting plasma glucose results greater than or equal to 126 mg/dL meet the criteria for diagnosis of diabetes. In the absence of unequivocal hyperglycemia, results should be confirmed by repeat testing. In a patient with classic symptoms of hyperglycemia or hyperglycemic crisis, random plasma glucose results greater than or equal to 200 mg/dL meet the criteria for diagnosis of diabetes. Reference: Standards of Medical Care in Diabetes 2016, [place] [employer]. Diabetes Care. 2016.39(Suppl 1). Performed By: #### 2 4323-8 ####[facility] LABCLIA [id number] [place] [address] Potassium [Moles/Vol] 4.5 mmol/L Normal 3.7-5.1 [facility] Comment on above: Order Comment: Speci men Type: BLOOD SPECIMENOrdering Facility: Address: [address] [place] [address] Performed By: #### 2 4323-8 ####[facility] LABCLIA [id number] [place] [address] Protein [Mass/Vol] 5.8 g/dL Low 6.3-8.0 [facility] Comment on above: Order Comment: Speci men Type: BLOOD SPECIMENOrdering Facility: Address: [address] [place] [address] Performed By: #### 2 4323-8 ####[facility] LABCLIA [id number] [place] [address] Sodium [Moles/Vol] 139 mmol/L Normal 136-144 [facility] Comment on above: Order Comment: Speci men Type: BLOOD SPECIMENOrdering Facility: Address: [address] [place] [address] Performed By: #### 2 4323-8 ####[facility] LABCLIA [id number] [place] [address] Urea nitrogen [Mass/Vol] 18 mg/dL Normal 9-24 [facility] Comment on above: Order Comment: Speci men Type: BLOOD SPECIMENOrdering Facility: Address: [facility] [place] [address] Performed By: #### 2 4323-8 ####[facility] LABCLIA [id number] [place] [address] UA DIP, URINE (POC)on 2023 BILIRUBIN UA (POCT) Negative Negative [facility] CLARITY UA (POCT) [facility] COLOR UA (POCT) Yellow [facility] GLUCOSE UA (POCT) Negative Negative mg/dL [facility] Hemoglobin Ql (U) Trace-intact Abnormal Negative [facility] Interpretation and review of laboratory results Abnormal [facility] [facility] KETONE UA (POCT) Negative Negative mg/dL [facility] LEUKOCYTES UA (POCT) Small Abnormal Negative [facility] NITRITE UA (POCT) Negative Negative [facility] PH UA (POCT) 5.5 4.5 - 8.0 [facility] Protein Ql (U) Negative Negative mg/dL [facility] SPECIFIC GRAVITY UA (POCT) 1.020 1.005 - 1.030 [facility] UROBILINOGEN UA (POCT) 0.2 Normal E.U./dL [facility] Location:[facility], [address] [place] [address] , [place], [place], [address] [facility] POINT OF CARE [facility] CNPMary Lou 04-28-2024 CNPN Telephone (HEMASA) KINGSLEY JENNINGS ([id number]) 1935 M Date Time Provider Department 04/28/24 SELENA DONNELLY During your visit today, we recorded the following information about you: Brianna Landaverde MA 04/28/2024 1:[address] labs for appt on 05/02 if needed. Brianna Landaverde MA Allergies As of Date: 04/28/2024 Noted Allergy Reaction FLUOROURACIL-ADHESIVE BANDAGE 03/11/2024 14 - Other: See Comments Date Reviewed: 04/11/2024 Reviewed by: Selena Donnelly APRN.VALIDATION MANAGER - Fully Assessed Reason for Visit: Lab Orders [1688] Primary Visit Diagnosis:Malignant neoplasm of urinary bladder, unspecified site (HCC) [C67.9] Order(s):COMPLETE BLOOD COUNT AND DIFFERENTIAL [SQCBCDIF] Order #: [id number] FUTURE COMPREHENSIVE METABOLIC PANEL [SQCMP] Order #: [id number] FUTURE Prescriptions as of 04/28/2024 - melatonin 10 mg tab Take 1 tablet by mouth daily at bedtime. - polyethylene glycol 3350 (PURELAX) 17 gram packet Take 17 g by mouth once daily. Dissolve dose in 4 - 8 ounces of liquid and take as directed. - psyllium (METAMUCIL FIBER SINGLES) 3.4 gram packet Take 1 Packet by mouth once daily. - Docosahexanoic Acid-Eicosapent (FISH OIL) 120-180 mg capsule Take 2 g by mouth as needed (pt states he takes this off and on). - pyridoxine, vitamin B6, (VITAMIN B-6) 25 mg tablet Take 25 mg by mouth once daily as needed (pt states he takes this off and on). - mecobalamin (B12 ACTIVE ORAL) Take 1 tablet by mouth once daily as needed (pt states he takes this off and on). - Vitamin E, dl, acetate, (VITAMIN E) 134 mg (200 unit) Capsule Take 200 Units by mouth once daily as needed (pt states he takes this off and on). - Multivitamins-Minerals -Lutein (MULTIVITAMIN 50 PLUS) tab Take 1 tablet by mouth once daily as needed (pt states he takes this off and on). - magnesium chloride 64 mg magnesium tab Take 1 tablet by mouth once daily as needed (pt states he takes this off and on). - levothyroxine (SYNTHROID) 137 mcg tablet Take by mouth. - aspirin, enteric coated (ASPIRIN, ENTERIC COATED) 81 mg EC tablet in the morning. - amLODIPine (NORVASC) 2.5 mg tablet Take 2.5 mg by mouth. - carvedilol (COREG) 3.125 mg tablet Take 6.25 mg by mouth. - Cholecalciferol, Vitamin D3, 50 mcg (2,000 unit) cap Take 2,000 Int'l Units by mouth. - diclofenac, EC, (VOLTAREN) 50 mg EC tablet Take 50 mg by mouth. - isosorbide mononitrate ER (IMDUR) 30 mg 24 hr tablet Take 15 mg by mouth once daily. - mupirocin (BACTROBAN) 2 % ointment APPLY 1 APPLICATION TOPICALLY TWICE A DAY FOR 5 DAYS - rosuvastatin (CRESTOR) 20 mg tablet Take 20 mg by mouth. - tamsulosin (FLOMAX) 0.4 mg Take 0.8 mg by mouth once daily. - triamcinolone acetonide (KENALOG) 0.1 % cream Problem List As Of Date 04/28/2024 Noted Resolved Bladder cancer (HCC) [C67.9] 03/17/2024 Encounter Status:Closed by SELENA DONNELLY on 04/28/24 [facility] 04-25-2024 [facility] Nurse Visit (KRIS) KINGSLEY JENNINGS ([id number]) 1935 M Date Time Provider Department 04/25/24 9:00 AM LIZBET NURSE KYLE PONCE During your visit today, we recorded the following information about you: Bhargavi Montoya MA 04/25/2024 8:41 AM Signed UA performed as ordered. Bhargavi Montoya MA Allergies As of Date: 04/25/2024 Noted Allergy Reaction FLUOROURACIL-ADHESIVE BANDAGE 03/11/2024 14 - Other: See Comments Date Reviewed: 04/11/2024 Reviewed by: Selena Donnelly APRN.VALIDATION MANAGER - Fully Assessed Visit Diagnosis:Urinary frequency [R35.0] Order(s):UA DIP, URINE (POC) [[id number]] Order #: [id number]. #:[id number] Prescriptions as of 04/25/2024 - melatonin 10 mg tab Take 1 tablet by mouth daily at bedtime. - polyethylene glycol 3350 (PURELAX) 17 gram packet Take 17 g by mouth once daily. Dissolve dose in 4 - 8 ounces of liquid and take as directed. - psyllium (METAMUCIL FIBER SINGLES) 3.4 gram packet Take 1 Packet by mouth once daily. - Docosahexanoic Acid-Eicosapent (FISH OIL) 120-180 mg capsule Take 2 g by mouth as needed (pt states he takes this off and on). - pyridoxine, vitamin B6, (VITAMIN B-6) 25 mg tablet Take 25 mg by mouth once daily as needed (pt states he takes this off and on). - mecobalamin (B12 ACTIVE ORAL) Take 1 tablet by mouth once daily as needed (pt states he takes this off and on). - Vitamin E, dl, acetate, (VITAMIN E) 134 mg (200 unit) Capsule Take 200 Units by mouth once daily as needed (pt states he takes this off and on). - Multivitamins-Minerals -Lutein (MULTIVITAMIN 50 PLUS) tab Take 1 tablet by mouth once daily as needed (pt states he takes this off and on). - magnesium chloride 64 mg magnesium tab Take 1 tablet by mouth once daily as needed (pt states he takes this off and on). - levothyroxine (SYNTHROID) 137 mcg tablet Take by mouth. - aspirin, enteric coated (ASPIRIN, ENTERIC COATED) 81 mg EC tablet in the morning. - amLODIPine (NORVASC) 2.5 mg tablet Take 2.5 mg by mouth. - carvedilol (COREG) 3.125 mg tablet Take 6.25 mg by mouth. - Cholecalciferol, Vitamin D3, 50 mcg (2,000 unit) cap Take 2,000 Int'l Units by mouth. - diclofenac, EC, (VOLTAREN) 50 mg EC tablet Take 50 mg by mouth. - isosorbide mononitrate ER (IMDUR) 30 mg 24 hr tablet Take 15 mg by mouth once daily. - mupirocin (BACTROBAN) 2 % ointment APPLY 1 APPLICATION TOPICALLY TWICE A DAY FOR 5 DAYS - rosuvastatin (CRESTOR) 20 mg tablet Take 20 mg by mouth. - tamsulosin (FLOMAX) 0.4 mg Take 0.8 mg by mouth once daily. - triamcinolone acetonide (KENALOG) 0.1 % cream Problem List As Of Date 04/25/2024 Noted Resolved Bladder cancer (HCC) [C67.9] 03/17/2024 Encounter Status:Closed by BHARGAVI MONTOYA on 04/25/24 Normal [facility] UA DIP, URINE (POC)on 2023 BILIRUBIN UA (POCT) Negative Negative [facility] CLARITY UA (POCT) Cloudy [facility] COLOR UA (POCT) Other [facility] GLUCOSE UA (POCT) Negative Negative mg/dL [facility] Hemoglobin Ql (U) Negative Negative [facility] Interpretation and review of laboratory results Abnormal [facility] KETONE UA (POCT) Negative Negative mg/dL [facility] LEUKOCYTES UA (POCT) Small Abnormal Negative [facility] NITRITE UA (POCT) Negative Negative [facility] PH UA (POCT) 5.5 4.5 - 8.0 [facility] Protein Ql (U) Negative Negative mg/dL [facility] SPECIFIC GRAVITY UA (POCT) 1.020 1.005 - 1.030 [facility] UROBILINOGEN UA (POCT) 0.2 Normal E.U./dL [facility] Location:[facility], [address] [place] [address] , [place], [place], [address] [facility] POINT OF CARE [facility] CNNURSEon 04-18-2024 CNNURSE Nurse Visit (HEMASA) KINGSLEY JENNINGS ([id number]) 1935 M Date Time Provider Department 04/18/24 9:00 AM LIZBET NURSE KYLE PONCE During your visit today, we recorded the following information about you: Hilaria Wilson MA 04/18/2024 8:58 AM Signed UA performed as ordered. Hilaria Wilson MA Allergies As of Date: 04/18/2024 Noted Allergy Reaction FLUOROURACIL-ADHESIVE BANDAGE 03/11/2024 14 - Other: See Comments Date Reviewed: 04/11/2024 Reviewed by: Selena Donnelly APRN.VALIDATION MANAGER - Fully Assessed Visit Diagnoses:Malignant neoplasm of urinary bladder, unspecified site (HCC) [C67.9] Urinary frequency [R35.0] Order(s):UA DIP OB, URINE (POC) [[id number]] Order #: [id number] UA DIP, URINE (POC) [[id number]] Order #: [id number]. #:[id number] Prescriptions as of 04/18/2024 - melatonin 10 mg tab Take 1 tablet by mouth daily at bedtime. - polyethylene glycol 3350 (PURELAX) 17 gram packet Take 17 g by mouth once daily. Dissolve dose in 4 - 8 ounces of liquid and take as directed. - psyllium (METAMUCIL FIBER SINGLES) 3.4 gram packet Take 1 Packet by mouth once daily. - Docosahexanoic Acid-Eicosapent (FISH OIL) 120-180 mg capsule Take 2 g by mouth as needed (pt states he takes this off and on). - pyridoxine, vitamin B6, (VITAMIN B-6) 25 mg tablet Take 25 mg by mouth once daily as needed (pt states he takes this off and on). - mecobalamin (B12 ACTIVE ORAL) Take 1 tablet by mouth once daily as needed (pt states he takes this off and on). - Vitamin E, dl, acetate, (VITAMIN E) 134 mg (200 unit) Capsule Take 200 Units by mouth once daily as needed (pt states he takes this off and on). - Multivitamins-Minerals -Lutein (MULTIVITAMIN 50 PLUS) tab Take 1 tablet by mouth once daily as needed (pt states he takes this off and on). - magnesium chloride 64 mg magnesium tab Take 1 tablet by mouth once daily as needed (pt states he takes this off and on). - levothyroxine (SYNTHROID) 137 mcg tablet Take by mouth. - aspirin, enteric coated (ASPIRIN, ENTERIC COATED) 81 mg EC tablet in the morning. - amLODIPine (NORVASC) 2.5 mg tablet Take 2.5 mg by mouth. - carvedilol (COREG) 3.125 mg tablet Take 6.25 mg by mouth. - Cholecalciferol, Vitamin D3, 50 mcg (2,000 unit) cap Take 2,000 Int'l Units by mouth. - diclofenac, EC, (VOLTAREN) 50 mg EC tablet Take 50 mg by mouth. - isosorbide mononitrate ER (IMDUR) 30 mg 24 hr tablet Take 15 mg by mouth once daily. - mupirocin (BACTROBAN) 2 % ointment APPLY 1 APPLICATION TOPICALLY TWICE A DAY FOR 5 DAYS - rosuvastatin (CRESTOR) 20 mg tablet Take 20 mg by mouth. - tamsulosin (FLOMAX) 0.4 mg Take 0.8 mg by mouth once daily. - triamcinolone acetonide (KENALOG) 0.1 % cream Problem List As Of Date 04/18/2024 Noted Resolved Bladder cancer (HCC) [C67.9] 03/17/2024 Visit Notes: >> Hilaria Wilson MA SunApr 18, 2024 8:56 AM Status: Signed UA performed as ordered. Hilaria Wilson MA Encounter Status:Closed by HILARIA WILSON on 04/18/24 Normal [facility] UA DIP, URINE (POC)on 2023 BILIRUBIN UA (POCT) Negative Negative [facility] CLARITY UA (POCT) Clear [facility] COLOR UA (POCT) Yellow [facility] GLUCOSE UA (POCT) Negative Negative mg/dL [facility] Hemoglobin Ql (U) Trace-intact Abnormal Negative [facility] Interpretation and review of laboratory results Abnormal [facility] KETONE UA (POCT) Negative Negative mg/dL [facility] LEUKOCYTES UA (POCT) Small Abnormal Negative [facility] NITRITE UA (POCT) Negative Negative [facility] PH UA (POCT) 5.5 4.5 - 8.0 [facility] Protein Ql (U) Negative Negative mg/dL [facility] SPECIFIC GRAVITY UA (POCT) 1.020 1.005 - 1.030 [facility] UROBILINOGEN UA (POCT) 0.2 Normal E.U./dL [facility] Location:[facility], [address] [place] [address] Dr. [place], [place], [address] [facility] POINT OF CARE [facility] CNNURSEon 04-11-2024 CNNURSE Nurse Visit (HEMASA) KINGSLEY JENNINGS ([id number]) 1935 M Date Time Provider Department 04/11/24 9:00 AM LIZBET NURSE KYLE PONCE During your visit today, we recorded the following information about you: Bhargavi Montoya MA 04/11/2024 9:01 AM Signed UA performed as ordered. Bhargavi Montoya MA Allergies As of Date: 04/11/2024 Noted Allergy Reaction FLUOROURACIL-ADHESIVE BANDAGE 03/11/2024 14 - Other: See Comments Date Reviewed: 04/11/2024 Reviewed by: Bhargavi Montoya MA - Fully Assessed Primary Visit Diagnosis:Malignant neoplasm of urinary bladder, unspecified site (HCC) [C67.9] Other Visit Diagnosis:Urinary frequency [R35.0] Order(s):UA DIP, URINE (POC) [[id number]] Order #: [id number]. #:[id number] Prescriptions as of 04/11/2024 - melatonin 10 mg tab Take 1 tablet by mouth daily at bedtime. - polyethylene glycol 3350 (PURELAX) 17 gram packet Take 17 g by mouth once daily. Dissolve dose in 4 - 8 ounces of liquid and take as directed. - psyllium (METAMUCIL FIBER SINGLES) 3.4 gram packet Take 1 Packet by mouth once daily. - Docosahexanoic Acid-Eicosapent (FISH OIL) 120-180 mg capsule Take 2 g by mouth as needed (pt states he takes this off and on). - pyridoxine, vitamin B6, (VITAMIN B-6) 25 mg tablet Take 25 mg by mouth once daily as needed (pt states he takes this off and on). - mecobalamin (B12 ACTIVE ORAL) Take 1 tablet by mouth once daily as needed (pt states he takes this off and on). - Vitamin E, dl, acetate, (VITAMIN E) 134 mg (200 unit) Capsule Take 200 Units by mouth once daily as needed (pt states he takes this off and on). - Multivitamins-Minerals -Lutein (MULTIVITAMIN 50 PLUS) tab Take 1 tablet by mouth once daily as needed (pt states he takes this off and on). - magnesium chloride 64 mg magnesium tab Take 1 tablet by mouth once daily as needed (pt states he takes this off and on). - levothyroxine (SYNTHROID) 137 mcg tablet Take by mouth. - aspirin, enteric coated (ASPIRIN, ENTERIC COATED) 81 mg EC tablet in the morning. - amLODIPine (NORVASC) 2.5 mg tablet Take 2.5 mg by mouth. - carvedilol (COREG) 3.125 mg tablet Take 6.25 mg by mouth. - Cholecalciferol, Vitamin D3, 50 mcg (2,000 unit) cap Take 2,000 Int'l Units by mouth. - diclofenac, EC, (VOLTAREN) 50 mg EC tablet Take 50 mg by mouth. - isosorbide mononitrate ER (IMDUR) 30 mg 24 hr tablet Take 15 mg by mouth once daily. - mupirocin (BACTROBAN) 2 % ointment APPLY 1 APPLICATION TOPICALLY TWICE A DAY FOR 5 DAYS - rosuvastatin (CRESTOR) 20 mg tablet Take 20 mg by mouth. - tamsulosin (FLOMAX) 0.4 mg Take 0.8 mg by mouth once daily. - triamcinolone acetonide (KENALOG) 0.1 % cream Problem List As Of Date 04/11/2024 Noted Resolved Bladder cancer (HCC) [C67.9] 03/17/2024 Visit Notes: >> Bhargavi Montoya MA Fri Apr 11, 2024 8:59 AM Status: Signed UA performed as ordered. Bhargavi Montoya MA Encounter Status:Closed by BHARGAVI MONTOYA on 04/11/24 [facility] CNOVSPon 04-11-2024 CNOVSP Visit (SP) Office (HEMASA) KINGSLEY JENNINGS ([id number]) 1935 M Date Time Provider Department 04/11/24 8:30 AM SELENA DONNELLY During your visit today, we recorded the following information about you: Temperature Pulse Respiration Blood pressure 97.8 degrees 56/minute 18/minute 176/87 Weight Height 75.2 kg 1.753 m Selena Donnelly APRN.[facility] 04/11/2024 10:34 AM Signed PATIENT NAME: Kingsley Jennings CLINIC NO.: [id number] ATTENDING PHYSICIAN: Jacek Cano MD DATE OF SERVICE: April 11, [address] Eusebia Galindo [address] [place] [id number] thank you for referring Kingsley Jennings for an opinion regarding bladder cancer. 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 Interval History: Patient here for consideration of week 3 of BCG. Patient denies any urinary symptoms. UA in the office today was negative. We will proceed with BCG. Patient's son is here with him today reviewed precautions and education for BCG. Overall patient is feeling well. No signs of infection. Will continue to monitor through his BCG treatments. No nausea or vomiting. Staying hydrated. Eating good. CT abdomen pelvis noncontrast showed bladder wall thickening in February 2024 and a right bladder wall mass in December 2023. C/o back pain and insomnia. Underwent transurethral resection of bladder tumor measuring approx 4cm on 02/07/24. Underwent transurethral resection of bladder tumor measuring approx 3cm and deep bladder biopsies on 02/21/24. Urologist recommended intravesical BCG treatments. Current Outpatient Medications Medication Sig melatonin 10 mg tab Take 1 tablet by mouth daily at bedtime. polyethylene glycol 3350 (PURELAX) 17 gram packet Take 17 g by mouth once daily. Dissolve dose in 4 - 8 ounces of liquid and take as directed. psyllium (METAMUCIL FIBER SINGLES) 3.4 gram packet Take 1 Packet by mouth once daily. Docosahexanoic Acid-Eicosapent (FISH OIL) 120-180 mg capsule Take 2 g by mouth as needed (pt states he takes this off and on). pyridoxine, vitamin B6, (VITAMIN B-6) 25 mg tablet Take 25 mg by mouth once daily as needed (pt states he takes this off and on). mecobalamin (B12 ACTIVE ORAL) Take 1 tablet by mouth once daily as needed (pt states he takes this off and on). Vitamin E, dl, acetate, (VITAMIN E) 134 mg (200 unit) Capsule Take 200 Units by mouth once daily as needed (pt states he takes this off and on). Multivitamins-Minerals -Lutein (MULTIVITAMIN 50 PLUS) tab Take 1 tablet by mouth once daily as needed (pt states he takes this off and on). magnesium chloride 64 mg magnesium tab Take 1 tablet by mouth once daily as needed (pt states he takes this off and on). levothyroxine (SYNTHROID) 137 mcg tablet Take by mouth. aspirin, enteric coated (ASPIRIN, ENTERIC COATED) 81 mg EC tablet in the morning. amLODIPine (NORVASC) 2.5 mg tablet Take 2.5 mg by mouth. carvedilol (COREG) 3.125 mg tablet Take 6.25 mg by mouth. Cholecalciferol, Vitamin D3, 50 mcg (2,000 unit) cap Take 2,000 Int'l Units by mouth. diclofenac, EC, (VOLTAREN) 50 mg EC tablet Take 50 mg by mouth. isosorbide mononitrate ER (IMDUR) 30 mg 24 hr tablet Take 15 mg by mouth once daily. rosuvastatin (CRESTOR) 20 mg tablet Take 20 mg by mouth. tamsulosin (FLOMAX) 0.4 mg Take 0.8 mg by mouth once daily. triamcinolone acetonide (KENALOG) 0.1 % cream mupirocin (BACTROBAN) 2 % ointment APPLY 1 APPLICATION TOPICALLY TWICE A DAY FOR 5 DAYS (Patient not taking: Reported on 03/21/2024) No current facility-administered medications for this visit. 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 Social History Substance Use Topics Alcohol use: Not Currently Comment: denies alcohol use 01/15/2019 REVIEW OF SYSTEMS GENERAL: No weight loss, malaise or fevers. No night sweats. HEENT: Negative for headaches, No changes in hearing or vision, no nos (more content not included)... Normal [facility] UA DIP, URINE (POC)on 2023 BILIRUBIN UA (POCT) Negative Negative [facility] CLARITY UA (POCT) Slightly Cloudy [facility] COLOR UA (POCT) Other [facility] GLUCOSE UA (POCT) Negative Negative mg/dL [facility] Hemoglobin Ql (U) Trace-intact Abnormal Negative [facility] Interpretation and review of laboratory results Abnormal [facility] KETONE UA (POCT) Negative Negative mg/dL [facility] LEUKOCYTES UA (POCT) Small Abnormal Negative [facility] NITRITE UA (POCT) Negative Negative [facility] PH UA (POCT) 5.5 4.5 - 8.0 [facility] Protein Ql (U) Negative Negative mg/dL [facility] SPECIFIC GRAVITY UA (POCT) 1.020 1.005 - 1.030 [facility] UROBILINOGEN UA (POCT) 0.2 Normal E.U./dL [facility] Location:[facility], [address] [place] [address] , [place], [place], [id number] [place] [address] POINT OF CARE [facility] Bacteria Ur Culton 4 Bacteria identified Cx Nom (U) ORGANISM ID: 1 <10,000 CFU/ml Enterococcus faecalis Insignificant colony count. No further workup. Cephalosporins, clindamycin, and TMP-SMX are not effective for the treatment of enterococcal infections. Normal [facility] Comment on above: Performed By: #### 6 30-4 ####[facility] LABCLIA [id number] [facility] [id number] [place] [address] [facility] CNNURSEon 04-04-2024 CNNURSE Nurse Visit (HEMASA) KINGSLEY JENNINGS ([id number]) 1935 M Date Time Provider Department 04/04/24 9:00 AM LIZBET NURSE KYLE PONCE During your visit today, we recorded the following information about you: Hilaria Wilson MA 04/04/2024 8:45 AM Signed UA performed as ordered. Hilaria Wilson MA Allergies As of Date: 04/04/2024 Noted Allergy Reaction FLUOROURACIL-ADHESIVE BANDAGE 03/11/2024 14 - Other: See Comments Date Reviewed: 04/04/2024 Reviewed by: Ladonna De León, PANkechiC - Fully Assessed Reason for Visit: Bladder Cancer [515] Primary Visit Diagnosis:High risk medication use [Z79.899] Other Visit Diagnoses:Urinary frequency [R35.0] Encounter for long-term (current) use of other medications [Z79.899] Order(s):UA DIP, URINE (POC) [[id number]] Order #: [id number]. #:[id number] Prescriptions as of 04/04/2024 - melatonin 10 mg tab Take 1 tablet by mouth daily at bedtime. - polyethylene glycol 3350 (PURELAX) 17 gram packet Take 17 g by mouth once daily. Dissolve dose in 4 - 8 ounces of liquid and take as directed. - psyllium (METAMUCIL FIBER SINGLES) 3.4 gram packet Take 1 Packet by mouth once daily. - Docosahexanoic Acid-Eicosapent (FISH OIL) 120-180 mg capsule Take 2 g by mouth as needed (pt states he takes this off and on). - pyridoxine, vitamin B6, (VITAMIN B-6) 25 mg tablet Take 25 mg by mouth once daily as needed (pt states he takes this off and on). - mecobalamin (B12 ACTIVE ORAL) Take 1 tablet by mouth once daily as needed (pt states he takes this off and on). - Vitamin E, dl, acetate, (VITAMIN E) 134 mg (200 unit) Capsule Take 200 Units by mouth once daily as needed (pt states he takes this off and on). - Multivitamins-Minerals -Lutein (MULTIVITAMIN 50 PLUS) tab Take 1 tablet by mouth once daily as needed (pt states he takes this off and on). - magnesium chloride 64 mg magnesium tab Take 1 tablet by mouth once daily as needed (pt states he takes this off and on). - levothyroxine (SYNTHROID) 137 mcg tablet Take by mouth. - aspirin, enteric coated (ASPIRIN, ENTERIC COATED) 81 mg EC tablet in the morning. - amLODIPine (NORVASC) 2.5 mg tablet Take 2.5 mg by mouth. - carvedilol (COREG) 3.125 mg tablet Take 6.25 mg by mouth. - Cholecalciferol, Vitamin D3, 50 mcg (2,000 unit) cap Take 2,000 Int'l Units by mouth. - diclofenac, EC, (VOLTAREN) 50 mg EC tablet Take 50 mg by mouth. - isosorbide mononitrate ER (IMDUR) 30 mg 24 hr tablet Take 15 mg by mouth once daily. - mupirocin (BACTROBAN) 2 % ointment APPLY 1 APPLICATION TOPICALLY TWICE A DAY FOR 5 DAYS - rosuvastatin (CRESTOR) 20 mg tablet Take 20 mg by mouth. - tamsulosin (FLOMAX) 0.4 mg Take 0.8 mg by mouth once daily. - triamcinolone acetonide (KENALOG) 0.1 % cream Problem List As Of Date 04/04/2024 Noted Resolved Bladder cancer (HCC) [C67.9] 03/17/2024 Visit Notes: >> Hilaria Wilson MA Fri Apr 04, 2024 8:44 AM Status: Signed UA performed as ordered. Hilaria LIZBET Wilson Encounter Status:Closed by HILARIA WILSON on 04/04/24 Normal [facility] UA DIP, URINE (POC)on 2023 BILIRUBIN UA (POCT) Negative Negative [facility] ([facility]) Clear [facility] COLOR UA (POCT) Yellow [facility] GLUCOSE UA (POCT) Negative Negative mg/dL [facility] Hemoglobin Ql (U) Small Abnormal Negative [facility] Interpretation and review of laboratory results Abnormal [facility] KETONE UA (POCT) Negative Negative mg/dL [facility] LEUKOCYTES UA (POCT) Moderate Abnormal Negative [facility] NITRITE UA (POCT) Negative Negative [facility] PH UA (POCT) 5.5 4.5 - 8.0 [facility] Protein Ql (U) Negative Negative mg/dL [facility] SPECIFIC GRAVITY UA (POCT) 1.020 1.005 - 1.030 [facility] UROBILINOGEN UA (POCT) 0.2 Normal E.U./dL [facility] Location:[facility], [address] [place] [address] , [place], [place], [address] [place] [address] POINT OF CARE [facility] CNPMary Lou 04-03-2024 CNPN Telephone (HEMASA) KINGSLEY JENNINGS ([id number]) 1935 M Date Time Provider Department 04/03/24 SELENA DONNELLY During your visit today, we recorded the following information about you: Bhargavi Montoya MA 04/03/2024 11:43 AM Signed Patient has an appt on 04/11/24. Would you like labs, if so place orders. Bhargavi Montoya MA Allergies As of Date: 04/03/2024 Noted Allergy Reaction FLUOROURACIL-ADHESIVE BANDAGE 03/11/2024 14 - Other: See Comments Date Reviewed: 03/28/2024 Reviewed by: Bhargavi Montoya MA - Fully Assessed Reason for Visit: Lab Orders [7158] Prescriptions as of 04/04/2024 - melatonin 10 mg tab Take 1 tablet by mouth daily at bedtime. - polyethylene glycol 3350 (PURELAX) 17 gram packet Take 17 g by mouth once daily. Dissolve dose in 4 - 8 ounces of liquid and take as directed. - psyllium (METAMUCIL FIBER SINGLES) 3.4 gram packet Take 1 Packet by mouth once daily. - Docosahexanoic Acid-Eicosapent (FISH OIL) 120-180 mg capsule Take 2 g by mouth as needed (pt states he takes this off and on). - pyridoxine, vitamin B6, (VITAMIN B-6) 25 mg tablet Take 25 mg by mouth once daily as needed (pt states he takes this off and on). - mecobalamin (B12 ACTIVE ORAL) Take 1 tablet by mouth once daily as needed (pt states he takes this off and on). - Vitamin E, dl, acetate, (VITAMIN E) 134 mg (200 unit) Capsule Take 200 Units by mouth once daily as needed (pt states he takes this off and on). - Multivitamins-Minerals -Lutein (MULTIVITAMIN 50 PLUS) tab Take 1 tablet by mouth once daily as needed (pt states he takes this off and on). - magnesium chloride 64 mg magnesium tab Take 1 tablet by mouth once daily as needed (pt states he takes this off and on). - levothyroxine (SYNTHROID) 137 mcg tablet Take by mouth. - aspirin, enteric coated (ASPIRIN, ENTERIC COATED) 81 mg EC tablet in the morning. - amLODIPine (NORVASC) 2.5 mg tablet Take 2.5 mg by mouth. - carvedilol (COREG) 3.125 mg tablet Take 6.25 mg by mouth. - Cholecalciferol, Vitamin D3, 50 mcg (2,000 unit) cap Take 2,000 Int'l Units by mouth. - diclofenac, EC, (VOLTAREN) 50 mg EC tablet Take 50 mg by mouth. - isosorbide mononitrate ER (IMDUR) 30 mg 24 hr tablet Take 15 mg by mouth once daily. - mupirocin (BACTROBAN) 2 % ointment APPLY 1 APPLICATION TOPICALLY TWICE A DAY FOR 5 DAYS - rosuvastatin (CRESTOR) 20 mg tablet Take 20 mg by mouth. - tamsulosin (FLOMAX) 0.4 mg Take 0.8 mg by mouth once daily. - triamcinolone acetonide (KENALOG) 0.1 % cream Facility-Administered Medications as of 04/04/2024 - lidocaine urojet 2 % 11 mL topical gel (GLYDO) Problem List As Of Date 04/03/2024 Noted Resolved Bladder cancer (HCC) [C67.9] 03/17/2024 Encounter Status:Closed by SELENA DONNELLY on 04/04/24 Normal [facility] Christen 04-01-2024 CNPN Telephone (HEMASA) KINGSLEY JENNINGS ([id number]) 1935 M Date Time Provider Department 04/01/24 LIANA MCGHEE During your visit today, we recorded the following information about you: Liana Mcghee RN 04/01/2024 2:32 PM Signed CYCLE 1/DAY 1 POST TREATMENT CALL Today's date: April 01, 2024 Treatment Regimen: BCG C1D1 Date: 03/28/24 Called patient to follow-up on symptom management. Spoke with patient SYMPTOM ASSESSMENT Neuro: None CV/Resp: None GI/: Fluid intake: really good , Bladder/Urinary Changes: for the first 24 hours after treatment felt the need to go more often and had a little burning, but this resolved by the morning after treatment and denies N/V, states he takes daily stool softener which works well. Integument: None Activity: Patient reported normal Pain: No=0 (pain 0 on a scale of 0-10). Fever: No Chills: Yes pt states he always feels chilled from old age, this is nothing new for him. Any new referrals needed? No Reinforced CURRENT treatment education based on current and anticipated symptoms. Discussed port/line care and patient verbalizes understanding: Not Applicable Patient instructed to contact office or after hours Hematology/Oncology fellow for: temperature >= 100.4; questions or concerns. Patient verbalized understanding of when to seek medical attention and after hours number protocol. Liana Mcghee RN Allergies As of Date: 04/01/2024 Noted Allergy Reaction FLUOROURACIL-ADHESIVE BANDAGE 03/11/2024 14 - Other: See Comments Date Reviewed: 03/28/2024 Reviewed by: Bhargavi Montoya MA - Fully Assessed Reason for Visit: Care Coordination [3499] Cmt: C1D1 treatment follow up call Prescriptions as of 04/01/2024 - melatonin 10 mg tab Take 1 tablet by mouth daily at bedtime. - polyethylene glycol 3350 (PURELAX) 17 gram packet Take 17 g by mouth once daily. Dissolve dose in 4 - 8 ounces of liquid and take as directed. - psyllium (METAMUCIL FIBER SINGLES) 3.4 gram packet Take 1 Packet by mouth once daily. - Docosahexanoic Acid-Eicosapent (FISH OIL) 120-180 mg capsule Take 2 g by mouth as needed (pt states he takes this off and on). - pyridoxine, vitamin B6, (VITAMIN B-6) 25 mg tablet Take 25 mg by mouth once daily as needed (pt states he takes this off and on). - mecobalamin (B12 ACTIVE ORAL) Take 1 tablet by mouth once daily as needed (pt states he takes this off and on). - Vitamin E, dl, acetate, (VITAMIN E) 134 mg (200 unit) Capsule Take 200 Units by mouth once daily as needed (pt states he takes this off and on). - Multivitamins-Minerals -Lutein (MULTIVITAMIN 50 PLUS) tab Take 1 tablet by mouth once daily as needed (pt states he takes this off and on). - magnesium chloride 64 mg magnesium tab Take 1 tablet by mouth once daily as needed (pt states he takes this off and on). - levothyroxine (SYNTHROID) 137 mcg tablet Take by mouth. - aspirin, enteric coated (ASPIRIN, ENTERIC COATED) 81 mg EC tablet in the morning. - amLODIPine (NORVASC) 2.5 mg tablet Take 2.5 mg by mouth. - carvedilol (COREG) 3.125 mg tablet Take 6.25 mg by mouth. - Cholecalciferol, Vitamin D3, 50 mcg (2,000 unit) cap Take 2,000 Int'l Units by mouth. - diclofenac, EC, (VOLTAREN) 50 mg EC tablet Take 50 mg by mouth. - isosorbide mononitrate ER (IMDUR) 30 mg 24 hr tablet Take 15 mg by mouth once daily. - mupirocin (BACTROBAN) 2 % ointment APPLY 1 APPLICATION TOPICALLY TWICE A DAY FOR 5 DAYS - rosuvastatin (CRESTOR) 20 mg tablet Take 20 mg by mouth. - tamsulosin (FLOMAX) 0.4 mg Take 0.8 mg by mouth once daily. - triamcinolone acetonide (KENALOG) 0.1 % cream Problem List As Of Date 04/01/2024 Noted Resolved Bladder cancer (HCC) [C67.9] 03/17/2024 Encounter Status:Closed by LIANA MCGHEE on 04/01/24 Normal [facility] CBC W Auto Differential pane l (Bld)on 03-28-2024 Basophils (Bld) [#/Vol] 0.03 10*3/uL Normal <0.11 [facility] Comment on above: Order Comment: Speci men Type: BLOOD SPECIMENOrdering Facility: Address: [address] [place] [address] Performed By: #### 5 7021-8 ####[facility] LABCLIA [id number] [place] [address] Basophils/100 WBC (Bld) 0.6 % Normal [facility] Comment on above: Order Comment: Speci men Type: BLOOD SPECIMENOrdering Facility: Address: [address] [place] [address] Performed By: #### 5 7021-8 ####[facility] LABCLIA [id number] [place] [address] Differential cell count method Nom (Bld) Auto Normal [facility] Comment on above: Order Comment: Speci men Type: BLOOD SPECIMENOrdering Facility: Address: [address] [place] [address] Performed By: #### 5 7021-8 ####[facility] LABCLIA [id number] [place] [address] Eosinophils (Bld) [#/Vol] 0.17 10*3/uL Normal <0.46 [facility] Comment on above: Order Comment: Speci men Type: BLOOD SPECIMENOrdering Facility: Address: [address] [place] [address] Performed By: #### 5 7021-8 ####[facility] LABCLIA [id number] [place] [address] Eosinophils/100 WBC (Bld) 3.5 % Normal [facility] Comment on above: Order Comment: Speci men Type: BLOOD SPECIMENOrdering Facility: Address: [address] [place] [address] Performed By: #### 5 7021-8 ####[facility] LABCLIA [id number] [place] [address] Erythrocyte distribution width (RBC) [Ratio] 14.1 % Normal 11.5-15.0 [facility] Comment on above: Order Comment: Speci men Type: BLOOD SPECIMENOrdering Facility: Address: [address] [place] [address] Performed By: #### 5 7021-8 ####[facility] LABCLIA [id number] [place] [address] Hematocrit (Bld) [Volume fraction] 37.1 % Low 39.0-51.0 [facility] Comment on above: Order Comment: Speci men Type: BLOOD SPECIMENOrdering Facility: Address: [address] [place] [address] Performed By: #### 5 7021-8 ####[facility] LABCLIA [id number] [place] [address] Hemoglobin (Bld) [Mass/Vol] 12.7 g/dL Low 13.0-17.0 [facility] Comment on above: Order Comment: Speci men Type: BLOOD SPECIMENOrdering Facility: Address: [address] [place] [address] Performed By: #### 5 7021-8 ####[facility] LABCLIA [id number] [place] [address] Immature granulocytes (Bld) [#/Vol] 0.03 10*3/uL Normal <0.10 [facility] Comment on above: Order Comment: Speci men Type: BLOOD SPECIMENOrdering Facility: Address: [address] [place] [address] Performed By: #### 5 7021-8 ####[facility] LABCLIA [id number] [place] [address] Immature granulocytes/100 WBC (Bld) 0.6 % Normal [facility] Comment on above: Order Comment: Speci men Type: BLOOD SPECIMENOrdering Facility: Address: [address] [place] [address] Performed By: #### 5 7021-8 ####[facility] LABCLIA [id number] [place] [address] Lymphocytes (Bld) [#/Vol] 0.89 10*3/uL Low 1.00-4.00 [facility] Comment on above: Order Comment: Speci men Type: BLOOD SPECIMENOrdering Facility: Address: [address] [place] [address] Performed By: #### 5 7021-8 ####[facility] LABCLIA [id number] [place] [address] Lymphocytes/100 WBC (Bld) 18.2 % Normal [facility] Comment on above: Order Comment: Speci men Type: BLOOD SPECIMENOrdering Facility: Address: [address] [place] [address] Performed By: #### 5 7021-8 ####[facility] LABCLIA [id number] [place] [address] MCH (RBC) [Entitic mass] 32.6 pg Normal 26.0-34.0 [facility] Comment on above: Order Comment: Speci men Type: BLOOD SPECIMENOrdering Facility: Address: [address] [place] [address] Performed By: #### 5 7021-8 ####[facility] LABCLIA [id number] [place] [address] MCHC (RBC) [Mass/Vol] 34.2 g/dL Normal 30.5-36.0 [facility] Comment on above: Order Comment: Speci men Type: BLOOD SPECIMENOrdering Facility: Address: [address] [place] [address] Performed By: #### 5 7021-8 ####[facility] LABCLIA [id number] [place] [address] MCV (RBC) [Entitic vol] 95.1 fL Normal 80.0-100.0 [facility] Comment on above: Order Comment: Speci men Type: BLOOD SPECIMENOrdering Facility: Address: [address] [place] [address] Performed By: #### 5 7021-8 ####[facility] LABCLIA [id number] [place] [address] Monocytes (Bld) [#/Vol] 0.85 10*3/uL Normal <0.87 [facility] Comment on above: Order Comment: Speci men Type: BLOOD SPECIMENOrdering Facility: Address: [address] [place] [address] Performed By: #### 5 7021-8 ####[facility] LABCLIA [id number] [place] [address] Monocytes/100 WBC (Bld) 17.3 % Normal [facility] Comment on above: Order Comment: Speci men Type: BLOOD SPECIMENOrdering Facility: Address: [address] [place] [address] Performed By: #### 5 7021-8 ####[facility] LABCLIA [id number] [place] [address] Neutrophils (Bld) [#/Vol] 2.93 10*3/uL Normal 1.45-7.50 [facility] Comment on above: Order Comment: Speci men Type: BLOOD SPECIMENOrdering Facility: Address: [address] [place] [address] Performed By: #### 5 7021-8 ####[facility] LABCLIA [id number] [place] [address] Neutrophils/100 WBC (Bld) 59.8 % Normal [facility] Comment on above: Order Comment: Speci men Type: BLOOD SPECIMENOrdering Facility: Address: [address] [place] [address] Performed By: #### 5 7021-8 ####[facility] LABCLIA [id number] [place] [address] Nucleated RBC (Bld) [#/Vol] 10*3/uL Normal <0.01 [facility] Comment on above: Order Comment: Speci men Type: BLOOD SPECIMENOrdering Facility: Address: [address] [place] [address] Performed By: #### 5 7021-8 ####[facility] LABCLIA [id number] [place] [address] Nucleated RBC/100 WBC (Bld) [Ratio] 0.0 /100 WBC Normal [facility] Comment on above: Order Comment: Speci men Type: BLOOD SPECIMENOrdering Facility: Address: [address] [place] [address] Performed By: #### 5 7021-8 ####[facility] LABCLIA [id number] [place] [address] Platelet mean volume (Bld) [Entitic vol] 9.3 fL Normal 9.0-12.7 [facility] Comment on above: Order Comment: Speci men Type: BLOOD SPECIMENOrdering Facility: Address: [address] [place] [address] Performed By: #### 5 7021-8 ####[facility] LABIA [id number] [place] [address] Platelets (Bld) [#/Vol] 172 10*3/uL Normal 150-400 [facility] Comment on above: Order Comment: Speci men Type: BLOOD SPECIMENOrdering Facility: Address: [address] [place] [address] Performed By: #### 5 7021-8 ####[facility] LABIA [id number] [place] [address] RBC (Bld) [#/Vol] 3.90 10*6/uL Low 4.20-6.00 [facility] Comment on above: Order Comment: Speci men Type: BLOOD SPECIMENOrdering Facility: Address: [address] [place] [address] Performed By: #### 5 7021-8 ####[facility] LABIA [id number] [place] [address] WBC (Bld) [#/Vol] 4.90 10*3/uL Normal 3.70-11.00 [facility] Comment on above: Order Comment: Speci men Type: BLOOD SPECIMENOrdering Facility: Address: [address] [place] [address] Performed By: #### 5 7021-8 ####[facility] LABIA [id number] [place] [address] [facility] CNN[facility]SE Nurse Visit (HEMASA) KINGSLEY JENNINGS ([id number]) 1935 M Date Time Provider Department 03/28/24 9:00 AM LIZBET NURSE KYEL PONCE During your visit today, we recorded the following information about you: Hilaria Wilson MA 03/28/2024 9:05 AM Signed UA performed as ordered. Hilaria Wilson MA Allergies As of Date: 03/28/2024 Noted Allergy Reaction FLUOROURACIL-ADHESIVE BANDAGE 03/11/2024 14 - Other: See Comments Date Reviewed: 03/28/2024 Reviewed by: Bhargavi Montoya MA - Fully Assessed Primary Visit Diagnosis:Urinary frequency [R35.0] Other Visit Diagnosis:High risk medication use [Z79.899] Prescriptions as of 03/28/2024 - melatonin 10 mg tab Take 1 tablet by mouth daily at bedtime. - polyethylene glycol 3350 (PURELAX) 17 gram packet Take 17 g by mouth once daily. Dissolve dose in 4 - 8 ounces of liquid and take as directed. - psyllium (METAMUCIL FIBER SINGLES) 3.4 gram packet Take 1 Packet by mouth once daily. - Docosahexanoic Acid-Eicosapent (FISH OIL) 120-180 mg capsule Take 2 g by mouth as needed (pt states he takes this off and on). - pyridoxine, vitamin B6, (VITAMIN B-6) 25 mg tablet Take 25 mg by mouth once daily as needed (pt states he takes this off and on). - mecobalamin (B12 ACTIVE ORAL) Take 1 tablet by mouth once daily as needed (pt states he takes this off and on). - Vitamin E, dl, acetate, (VITAMIN E) 134 mg (200 unit) Capsule Take 200 Units by mouth once daily as needed (pt states he takes this off and on). - Multivitamins-Minerals -Lutein (MULTIVITAMIN 50 PLUS) tab Take 1 tablet by mouth once daily as needed (pt states he takes this off and on). - magnesium chloride 64 mg magnesium tab Take 1 tablet by mouth once daily as needed (pt states he takes this off and on). - levothyroxine (SYNTHROID) 137 mcg tablet Take by mouth. - aspirin, enteric coated (ASPIRIN, ENTERIC COATED) 81 mg EC tablet in the morning. - amLODIPine (NORVASC) 2.5 mg tablet Take 2.5 mg by mouth. - carvedilol (COREG) 3.125 mg tablet Take 6.25 mg by mouth. - Cholecalciferol, Vitamin D3, 50 mcg (2,000 unit) cap Take 2,000 Int'l Units by mouth. - diclofenac, EC, (VOLTAREN) 50 mg EC tablet Take 50 mg by mouth. - isosorbide mononitrate ER (IMDUR) 30 mg 24 hr tablet Take 15 mg by mouth once daily. - mupirocin (BACTROBAN) 2 % ointment APPLY 1 APPLICATION TOPICALLY TWICE A DAY FOR 5 DAYS - rosuvastatin (CRESTOR) 20 mg tablet Take 20 mg by mouth. - tamsulosin (FLOMAX) 0.4 mg Take 0.8 mg by mouth once daily. - triamcinolone acetonide (KENALOG) 0.1 % cream Problem List As Of Date 03/28/2024 Noted Resolved Bladder cancer (HCC) [C67.9] 03/17/2024 Visit Notes: >> Hilaria Wilson MA Fri Mar 28, 2024 9:04 AM Status: Signed UA performed as ordered. Hilaria Wilson MA Encounter Status:Closed by HILARIA WILSON on 03/28/24 [facility]SP) Office (KRIS) KINGSLEY JENNINGS ([id number]) 1935 M Date Time Provider Department 03/28/24 8:30 AM SELENA DONNELLY During your visit today, we recorded the following information about you: Temperature Pulse Respiration Blood pressure 97.2 degrees 59/minute 16/minute 163/88 Weight 75.1 kg AndrzejMino mooreeAPRN.[facility] 03/28/2024 12:37 PM Signed PATIENT NAME: Kingsley Jennings CLINIC NO.: [id number] ATTENDING PHYSICIAN: Jacek Cano MD DATE OF SERVICE: March 13, [address] Eusebia Galindo [address] [place] [address] thank you for referring Kingslye Jennings for an opinion regarding bladder cancer. 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 Interval History: Patient here for consideration of week one of BCG. Patient was concerned about starting the BCG treatments with possible urinary tract infection. Patient denies any urinary symptoms. UA in the office today was negative. We will proceed with BCG. Patient's son is here with him today reviewed precautions and education for BCG. Overall patient is feeling well. No signs of infection. Will continue to monitor through his BCG treatments. CT abdomen pelvis noncontrast showed bladder wall thickening in February 2024 and a right bladder wall mass in December 2023. C/o back pain and insomnia. Underwent transurethral resection of bladder tumor measuring approx 4cm on 02/07/24. Underwent transurethral resection of bladder tumor measuring approx 3cm and deep bladder biopsies on 02/21/24. Urologist recommended intravesical BCG treatments. Current Outpatient Medications Medication Sig melatonin 10 mg tab Take 1 tablet by mouth daily at bedtime. polyethylene glycol 3350 (PURELAX) 17 gram packet Take 17 g by mouth once daily. Dissolve dose in 4 - 8 ounces of liquid and take as directed. psyllium (METAMUCIL FIBER SINGLES) 3.4 gram packet Take 1 Packet by mouth once daily. Docosahexanoic Acid-Eicosapent (FISH OIL) 120-180 mg capsule Take 2 g by mouth as needed (pt states he takes this off and on). pyridoxine, vitamin B6, (VITAMIN B-6) 25 mg tablet Take 25 mg by mouth once daily as needed (pt states he takes this off and on). mecobalamin (B12 ACTIVE ORAL) Take 1 tablet by mouth once daily as needed (pt states he takes this off and on). Vitamin E, dl, acetate, (VITAMIN E) 134 mg (200 unit) Capsule Take 200 Units by mouth once daily as needed (pt states he takes this off and on). Multivitamins-Minerals -Lutein (MULTIVITAMIN 50 PLUS) tab Take 1 tablet by mouth once daily as needed (pt states he takes this off and on). magnesium chloride 64 mg magnesium tab Take 1 tablet by mouth once daily as needed (pt states he takes this off and on). levothyroxine (SYNTHROID) 137 mcg tablet Take by mouth. aspirin, enteric coated (ASPIRIN, ENTERIC COATED) 81 mg EC tablet in the morning. amLODIPine (NORVASC) 2.5 mg tablet Take 2.5 mg by mouth. carvedilol (COREG) 3.125 mg tablet Take 6.25 mg by mouth. Cholecalciferol, Vitamin D3, 50 mcg (2,000 unit) cap Take 2,000 Int'l Units by mouth. diclofenac, EC, (VOLTAREN) 50 mg EC tablet Take 50 mg by mouth. isosorbide mononitrate ER (IMDUR) 30 mg 24 hr tablet Take 15 mg by mouth once daily. rosuvastatin (CRESTOR) 20 mg tablet Take 20 mg by mouth. tamsulosin (FLOMAX) 0.4 mg Take 0.8 mg by mouth once daily. triamcinolone acetonide (KENALOG) 0.1 % cream mupirocin (BACTROBAN) 2 % ointment APPLY 1 APPLICATION TOPICALLY TWICE A DAY FOR 5 DAYS (Patient not taking: Reported on 03/21/2024) No current facility-administered medications for this visit. 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 Social History Substance Use Topics Alcohol use: Not Currently Comment: denies alcohol use 01/15/2019 REVIEW OF SYSTEMS GENERAL: No weight loss, malaise or fevers. No night sweats. HEENT: Negative for headaches, No changes in hearing or vision, no nose bleeds or other nasal problems. RESPIRATORY: Negative for cough, wheezing and shortness of breath CARDIOVASCULAR: Negative fo (more content not included)... Normal [facility] Comprehensive metabolic 2000 panelon 03-28-2024 Albumin [Mass/Vol] 3.7 g/dL Low 3.9-4.9 [facility] Comment on above: Order Comment: Speci men Type: BLOOD SPECIMENOrdering Facility: Address: [address] [place] [address] Performed By: #### 2 4323-8 ####[facility] LABCLIA [id number] [place] [address] ALP [Catalytic activity/Vol] 69 U/L Normal 38-113 [facility] Comment on above: Order Comment: Speci men Type: BLOOD SPECIMENOrdering Facility: Address: [address] [place] [address] Performed By: #### 2 4323-8 ####[facility] LABCLIA [id number] [place] [address] ALT [Catalytic activity/Vol] 25 U/L Normal 10-54 [facility] Comment on above: Order Comment: Speci men Type: BLOOD SPECIMENOrdering Facility: Address: [address] [place] [address] Performed By: #### 2 4323-8 ####[facility] LABCLIA [id number] [place] [address] Anion gap [Moles/Vol] 5 mmol/L Low 8-15 [facility] Comment on above: Order Comment: Speci men Type: BLOOD SPECIMENOrdering Facility: Address: [address] [place] [address] Performed By: #### 2 4323-8 ####[facility] LABCLIA [id number] [place] [address] AST [Catalytic activity/Vol] 23 U/L Normal 14-40 [facility] Comment on above: Order Comment: Speci men Type: BLOOD SPECIMENOrdering Facility: Address: [address] [place] [address] Performed By: #### 2 4323-8 ####[facility] LABCLIA [id number] [place] [address] Bilirubin [Mass/Vol] 0.7 mg/dL Normal 0.2-1.3 [facility] Comment on above: Order Comment: Speci men Type: BLOOD SPECIMENOrdering Facility: Address: [address] [place] [address] Performed By: #### 2 4323-8 ####[facility] LABCLIA [id number] [place] [address] Calcium [Mass/Vol] 10.0 mg/dL Normal 8.5-10.2 [facility] Comment on above: Order Comment: Speci men Type: BLOOD SPECIMENOrdering Facility: Address: [address] [place] [address] Performed By: #### 2 4323-8 ####[facility] LABCLIA [id number] [place] [address] Chloride [Moles/Vol] 104 mmol/L Normal 98-107 [facility] Comment on above: Order Comment: Speci men Type: BLOOD SPECIMENOrdering Facility: Address: [address] [place] [address] Performed By: #### 2 4323-8 ####[facility] LABCLIA [id number] [place] [address] CO2 [Moles/Vol] 26 mmol/L Normal 22-30 [facility] Comment on above: Order Comment: Speci men Type: BLOOD SPECIMENOrdering Facility: Address: [address] [place] [address] Performed By: #### 2 4323-8 ####[facility] LABCLIA [id number] [place] [address] Creatinine [Mass/Vol] 1.06 mg/dL Normal 0.73-1.22 [facility] Comment on above: Order Comment: Migel men Type: BLOOD SPECIMENOrdering Facility: Address: [address] [place] [address] Performed By: #### 2 4323-8 ####[facility] LABCLIA [id number] [place] [address] Creatinine and Glomerular filtration rate.predicted panel (S/P/Bld) 67 mL/min/1.73m??? Normal >=60 [facility] Comment on above: Order Comment: Migel men Type: BLOOD SPECIMENOrdering Facility: Address: [address] [place] [address] Result Comment: Lorin mated Glomerular Filtration Rate (eGFR) is calculated using the 2020 CKD-EPI creatinine equation. This equation utilizes serum creatinine, sex, and age as parameters. The creatinine assay has traceable calibration to isotope dilution-mass spectrometry. Refer to KDIGO guidelines for clinical interpretation. In patients with unstable renal function, e.g. those with acute kidney injury, the eGFR may not accurately reflect actual GFR. Performed By: #### 2 4323-8 ####[facility] LABCLIA [id number] [place] [address] Glucose [Mass/Vol] 85 mg/dL Normal 74-99 [facility] Comment on above: Order Comment: Speci men Type: BLOOD SPECIMENOrdering Facility: Address: [address] [place] [address] Result Comment: The [place] Diabetes Association (ADA) provides guidance for cutoff values for fasting glucose and random glucose. The ADA defines fasting as no caloric intake for at least 8 hours. Fasting plasma glucose results between 100 to 125 mg/dL indicate increased risk for diabetes (prediabetes). Fasting plasma glucose results greater than or equal to 126 mg/dL meet the criteria for diagnosis of diabetes. In the absence of unequivocal hyperglycemia, results should be confirmed by repeat testing. In a patient with classic symptoms of hyperglycemia or hyperglycemic crisis, random plasma glucose results greater than or equal to 200 mg/dL meet the criteria for diagnosis of diabetes. Reference: Standards of Medical Care in Diabetes 2016, [place] [employer] Association. Diabetes Care. 2016.39(Suppl 1). Performed By: #### 2 4323-8 ####[facility] LABCLIA [id number] [place] [address] Potassium [Moles/Vol] 4.8 mmol/L Normal 3.7-5.1 [facility] Comment on above: Order Comment: Speci men Type: BLOOD SPECIMENOrdering Facility: Address: [address] [place] [address] Performed By: #### 2 4323-8 ####[facility] LABCLIA [id number] [place] [address] Protein [Mass/Vol] 5.5 g/dL Low 6.3-8.0 [facility] Comment on above: Order Comment: Speci men Type: BLOOD SPECIMENOrdering Facility: Address: [address] [place] [address] Performed By: #### 2 4323-8 ####[facility] LABCLIA [id number] [place] [address] Sodium [Moles/Vol] 135 mmol/L Low 136-144 [facility] Comment on above: Order Comment: Speci men Type: BLOOD SPECIMENOrdering Facility: Address: [address] [place] [address] Performed By: #### 2 4323-8 ####[facility] LABCLIA [id number] [place] [address] Urea nitrogen [Mass/Vol] 21 mg/dL Normal 9-24 [facility] Comment on above: Order Comment: Speci men Type: BLOOD SPECIMENOrdering Facility: Address: [address] [place] [address] Performed By: #### 2 4323-8 ####[facility] LABCLIA [id number] [place] [address] UA DIP, URINE (POC)on 2023 BILIRUBIN UA (POCT) Negative Negative [facility] CLARITY UA (POCT) Cloudy [facility] COLOR UA (POCT) Dark yellow [facility] GLUCOSE UA (POCT) Negative Negative mg/dL [facility] Hemoglobin Ql (U) Trace-intact Abnormal Negative [facility] Interpretation and review of laboratory results Abnormal [facility] KETONE UA (POCT) Negative Negative mg/dL [facility] LEUKOCYTES UA (POCT) Small Abnormal Negative [facility] NITRITE UA (POCT) Negative Negative [facility] PH UA (POCT) 6.0 4.5 - 8.0 [facility] Protein Ql (U) Negative Negative mg/dL [facility] SPECIFIC GRAVITY UA (POCT) >=1.030 1.005 - 1.030 [facility] UROBILINOGEN UA (POCT) 0.2 Normal E.U./dL [facility] Location:[facility], [address] [place] [address] , [place], [place], [address] [facility] POINT OF CARE [facility] CNPMary Lou 03-25-2024 CNPN Telephone (HEMASA) KINGSLEY JENNINGS ([id number]) 1935 M Date Time Provider Department 03/25/24 LIANA MCGHEE HEMXENIA During your visit today, we recorded the following information about you: Liana Mcghee RN 03/25/2024 9:16 AM Signed Pt is due to start BCG treatments 03/28. Pt wanted to take a home urine test to see if he was positive for a UTI because the chemo ed information that he received states that treatment should not be given if pt has an active UTI. Pt's son calls stating his home test came back positive. Son states he doesn't think that pt cleaned himself off prior to the test, so he's not sure if it's contaminated or not. Per son, pt is not having s/s of UTI, just wanted to test since the information said not to do BCG treatment if active UTI. Please advise KANDIS Sauer Adarsh, MD 03/25/2024 9:20 AM Signed Order urine culture. Thanks Liana Mcghee RN 03/25/2024 9:40 AM Signed Discussed with Dr Cano and he would like to do a POC urine when pt is here for treatment on Sunday. AV/JR: Please sign pending orders. PSS: please add to POC schedule prior to treatment appointment. KANDIS Sauer Adarsh, MD 03/25/2024 9:41 AM Signed I signed. Thanks Cornelia Cotton HUC 03/25/2024 9:55 AM Signed I added the Patient at 815 am on 03/28/24 before Treatment to the MA Schedule for the POC UA. ELÍAS Browning Tiffany G, RN 03/25/2024 10:15 AM Signed Called and spoke with pt's son and explained to him that we will check his urine prior to treatment on Sunday. Again pt's son states pt is not having any s/s of UTI and he was just checking his urine prior to his treatment. 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 - polyethylene glycol 3350 (PURELAX) 17 gram packet Take 17 g by mouth once daily. Dissolve dose in 4 - 8 ounces of liquid and take as directed. - psyllium (METAMUCIL FIBER SINGLES) 3.4 gram packet Take 1 Packet by mouth once daily. - Docosahexanoic Acid-Eicosapent (FISH OIL) 120-180 mg capsule Take 2 g by mouth as needed (pt states he takes this off and on). - pyridoxine, vitamin B6, (VITAMIN B-6) 25 mg tablet Take 25 mg by mouth once daily as needed (pt states he takes this off and on). - mecobalamin (B12 ACTIVE ORAL) Take 1 tablet by mouth once daily as needed (pt states he takes this off and on). - Vitamin E, dl, acetate, (VITAMIN E) 134 mg (200 unit) Capsule Take 200 Units by mouth once daily as needed (pt states he takes this off and on). - Multivitamins-Minerals -Lutein (MULTIVITAMIN 50 PLUS) tab Take 1 tablet by mouth once daily as needed (pt states he takes this off and on). - magnesium chloride 64 mg magnesium tab Take 1 tablet by mouth once daily as needed (pt states he takes this off and on). - levothyroxine (SYNTHROID) 137 mcg tablet Take by mouth. - aspirin, enteric coated (ASPIRIN, ENTERIC COATED) 81 mg EC tablet in the morning. - amLODIPine (NORVASC) 2.5 mg tablet Take 2.5 mg by mouth. - carvedilol (COREG) 3.125 mg tablet Take 6.25 mg by mouth. - Cholecalciferol, Vitamin D3, 50 mcg (2,000 unit) cap Take 2,000 Int'l Units by mouth. - diclofenac, EC, (VOLTAREN) 50 mg EC tablet Take 50 mg by mouth. - isosorbide mononitrate ER (IMDUR) 30 mg 24 hr tablet Take 15 mg by mouth once daily. - mupirocin (BACTROBAN) 2 % ointment APPLY 1 APPLICATION TOPICALLY TWICE A DAY FOR 5 DAYS - rosuvastatin (CRESTOR) 20 mg tablet Take 20 mg by mouth. - tamsulosin (FLOMAX) 0.4 mg Take 0.8 mg by mouth once daily. - triamcinolone acetonide (KENALOG) 0.1 % cream APPLY TO AFFECTED AREA TWICE A DAY FOR 5 DAYS Problem List As Of Date 03/25/2024 Noted Resolved Bladder cancer (HCC) [C67.9] 03/17/2024 Encounter Status:Closed by LIANA [facility]CGHEE [facility] 03[facility]25[facility] Nurse Visit (HEMASA) KINGSLEY JENNINGS ([id number]) 1935 M Date Time Provider Department 03/21/24 9:00 AM LIANA MCGHEE During your visit today, we recorded the following information about you: Liana Mcghee, RN 03/21/2024 10:03 AM Signed ONCOLOGY PATIENT EDUCATION NOTE TOPIC: Chemotherapy, Medications: BCG patient and son here today for education for treatment of Bladder Cancer Anticipated/Scheduled start date: 03/28/24 READINESS TO LEARN: COGNITIVE ABILITY: Alert and oriented MOTIVATION TO LEARN: Interested FAMILY SUPPORT: High - Very involved in pt care INSTRUCTION PROVIDED TO: Patient and Son INSTRUCTION PROVIDED BY: Nurse Coordinator PATIENT LEARNS BEST BY: Multiple Methods FACTORS AFFECTING LEARNING: None PHYSICAL LIMITATIONS AFFECTING LEARNING: None LEARNING RESPONSE METHOD OF INSTRUCTION: Written material, verbal education PATIENT/FAMILY RESPONSE: Verbalizes understanding of: CHEMOTHERAPY-Regimen, toxicity and side effects INFECTION MANAGEMENT-Signs and symptoms of an infection and importance of contacting the physician MEDICAL REGIMEN-Importance of following prescribed medical regimen MEDICATION PRESCRIBED-Accurate knowledge of prescribed medication prior to discharge MEDICATION ROUTE-Correct route for administration of the prescribed medication MEDICATION SIDE EFFECTS-Side effects associated with the medication that warrant a call to the physician PATIENT SAFETY PRINCIPLES SYMPTOM MANAGEMENT-Correct actions to take to manage symptoms associated with his/her disease/illness WORSENING CONDITION-Signs and symptoms of a worsening condition that warrant a call to the physician Information received as demonstrated by interest and questions FOLLOW UP PLAN: Patient instructed to call with any further issues Recommend - Recommend continued instruction and follow up as directed Follow up phone call. Contact information given. SUPPLEMENTAL MATERIAL: Written material was provided at this visit with the following information: - Chemotherapy education was provided by a pharmacist NO - Side effect management information was provided/discussed including but not limited to: abdominal discomfort, arthralgia, bowel habit changes, diet, electrolyte disturbances, fatigue, hypersensitivity reaction, infection, kidney toxicity, nausea/vomitting, neutropenia, rash, shortness of breath, skin changes, thrombocytopenia, bladder inflammation, hematuria, increased urinary frequency, malaise, fevers, unable to hold urine YES - Provided important phone numbers and contacts during and after hours. YES - Provided information on symptoms that require immediate assistance. YES - Provided Chemotherapy when to call handouts YES - Preventing infection. YES - Treatment schedule and confirmation of appointment times. YES - Available support groups. NA - The importance of contraception during the course of chemotherapy NA - Neutropenic fever protocol discussed with patient, which included the importance of reporting any fever of 100.4F (38.0C) or greater to the healthcare team as noted on the provided wallet card and/or magnet. YES - Cancer Wellness Program Pamphlet. YES - [employer] Information. YES - Patient services information. 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 - polyethylene glycol 3350 (PURELAX) 17 gram packet Take 17 g by mouth once daily. Dissolve dose in 4 - 8 ounces of liquid and take as directed. - psyllium (METAMUCIL FIBER SINGLES) 3.4 gram packet Take 1 Packet by mouth once daily. - Docosahexanoic Acid-Eicosapent (FISH OIL) 120-180 mg capsule Take 2 g by mouth as needed (pt states he takes this off and on). - pyridoxine, vitamin B6, (VITAMIN B-6) 25 mg tablet Take 25 mg by mouth once daily as needed (pt states he takes this off and on). - mecobalamin (B12 ACTIVE ORAL) Take 1 tablet by mouth once daily as needed (pt states he takes this off and on). - Vitamin E, dl, acetate, (VITAMIN E) 134 mg (200 unit) Capsule Take 200 Units by mouth once daily as needed (pt states he takes this off and on). - Multivitamins-Minerals -Lutein (MULTIVITAMIN 50 PLUS) tab Take 1 tablet by mouth once daily as needed (pt states he takes this off and on). - magnesium chloride 64 mg magnesium tab Take 1 tablet by mo (more content not included)... [facility] KINGSLEY JENNINGS ([id number]) 1935 M Date Time Provider Department 03/17/24 SELENA DONNELLY During your visit today, we recorded the following information about you: Bhargavi Montoya MA 03/17/2024 3:23 PM Signed Patient has an appt on 03/28/24. Would you like labs, if so place orders. Bhargavi Montoya MA Allergies As of Date: 03/17/2024 Noted Allergy Reaction FLUOROURACIL-ADHESIVE BANDAGE 03/11/2024 14 - Other: See Comments Date Reviewed: 03/14/2024 Reviewed by: Carrie Bingham MA - Fully Assessed Reason for Visit: Lab Orders [3228] Prescriptions as of 03/31/2024 - melatonin 10 mg tab Take 1 tablet by mouth daily at bedtime. - polyethylene glycol 3350 (PURELAX) 17 gram packet Take 17 g by mouth once daily. Dissolve dose in 4 - 8 ounces of liquid and take as directed. - psyllium (METAMUCIL FIBER SINGLES) 3.4 gram packet Take 1 Packet by mouth once daily. - Docosahexanoic Acid-Eicosapent (FISH OIL) 120-180 mg capsule Take 2 g by mouth as needed (pt states he takes this off and on). - pyridoxine, vitamin B6, (VITAMIN B-6) 25 mg tablet Take 25 mg by mouth once daily as needed (pt states he takes this off and on). - mecobalamin (B12 ACTIVE ORAL) Take 1 tablet by mouth once daily as needed (pt states he takes this off and on). - Vitamin E, dl, acetate, (VITAMIN E) 134 mg (200 unit) Capsule Take 200 Units by mouth once daily as needed (pt states he takes this off and on). - Multivitamins-Minerals -Lutein (MULTIVITAMIN 50 PLUS) tab Take 1 tablet by mouth once daily as needed (pt states he takes this off and on). - magnesium chloride 64 mg magnesium tab Take 1 tablet by mouth once daily as needed (pt states he takes this off and on). - levothyroxine (SYNTHROID) 137 mcg tablet Take by mouth. - aspirin, enteric coated (ASPIRIN, ENTERIC COATED) 81 mg EC tablet in the morning. - amLODIPine (NORVASC) 2.5 mg tablet Take 2.5 mg by mouth. - carvedilol (COREG) 3.125 mg tablet Take 6.25 mg by mouth. - Cholecalciferol, Vitamin D3, 50 mcg (2,000 unit) cap Take 2,000 Int'l Units by mouth. - diclofenac, EC, (VOLTAREN) 50 mg EC tablet Take 50 mg by mouth. - isosorbide mononitrate ER (IMDUR) 30 mg 24 hr tablet Take 15 mg by mouth once daily. - mupirocin (BACTROBAN) 2 % ointment APPLY 1 APPLICATION TOPICALLY TWICE A DAY FOR 5 DAYS - rosuvastatin (CRESTOR) 20 mg tablet Take 20 mg by mouth. - tamsulosin (FLOMAX) 0.4 mg Take 0.8 mg by mouth once daily. - triamcinolone acetonide (KENALOG) 0.1 % cream Problem List As Of Date 03/17/2024 Noted Resolved Bladder cancer (HCC) [C67.9] 03/17/2024 Encounter Status:Closed by BHARGAVI MONTOYA on 03/31/24 [facility] CNOVSPon 03-14-2024 CNOVS Visit (SP) Office (HEMASA) KINGSLEY JENNINGS ([id number]) 1935 M Date Time Provider Department 03/14/24 11:00 AM JACEK CANO During your visit today, we recorded the following information about you: Temperature Pulse Respiration Blood pressure 97.6 degrees 69/minute 16/minute 139/73 Weight 73.9 kg Jacek Cano MD 03/14/2024 11:24 AM Signed PATIENT NAME: Kingsley Jennings CLINIC NO.: [id number] ATTENDING PHYSICIAN: Jacek Cano MD DATE OF SERVICE: March 13, [address] Eusebia Galindo [address] [place] [address] thank you for referring Kingsley Jennings for an opinion regarding bladder cancer. 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 CT abdomen pelvis noncontrast showed bladder wall thickening in February 2024 and a right bladder wall mass in December 2023. C/o back pain and insomnia. Underwent transurethral resection of bladder tumor measuring approx 4cm on 02/07/24. Underwent transurethral resection of bladder tumor measuring approx 3cm and deep bladder biopsies on 02/21/24. Urologist recommended intravesical BCG treatments. Current Outpatient Medications Medication Sig amLODIPine (NORVASC) 2.5 mg tablet Take 2.5 mg by mouth. carvedilol (COREG) 3.125 mg tablet Take 6.25 mg by mouth. cefdinir (OMNICEF) 300 mg capsule TAKE 2 CAPSULES BY MOUTH ONCE A DAY FOR 10 DAYS cephALEXin (KEFLEX) 250 mg capsule Take 1 capsule by mouth every 12 hours. Cholecalciferol, Vitamin D3, 50 mcg (2,000 unit) cap Take 2,000 Int'l Units by mouth. ciprofloxacin HCl (CIPRO) 500 mg tablet TAKE 1 TAB THE DAY BEFORE PROCEDURE AND 1 TAB AFTER THE PROCEDURE diclofenac, EC, (VOLTAREN) 50 mg EC tablet Take 50 mg by mouth. isosorbide mononitrate ER (IMDUR) 30 mg 24 hr tablet Take by mouth. levoFLOXacin (LEVAQUIN) 750 mg tablet Take 1 tablet by mouth every afternoon. mupirocin (BACTROBAN) 2 % ointment APPLY 1 APPLICATION TOPICALLY TWICE A DAY FOR 5 DAYS phenazopyridine (PYRIDIUM) 200 mg tablet TAKE 1 TABLET BY MOUTH THREE TIMES A DAY AFTER MEALS FOR 2 DAYS rosuvastatin (CRESTOR) 20 mg tablet Take 20 mg by mouth. tamsulosin (FLOMAX) 0.4 mg Take 0.8 mg by mouth once daily. triamcinolone acetonide (KENALOG) 0.1 % cream APPLY TO AFFECTED AREA TWICE A DAY FOR 5 DAYS No current facility-administered medications for this visit. 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 Social History Substance Use Topics Alcohol use: Not Currently Comment: denies alcohol use 01/15/2019 REVIEW OF SYSTEMS GENERAL: No weight loss, malaise or fevers. No night sweats. HEENT: Negative for headaches, No changes in hearing or vision, no nose bleeds or other nasal problems. RESPIRATORY: Negative for cough, wheezing and shortness of breath CARDIOVASCULAR: Negative for chest pain, leg swelling and palpitations GI: Negative for abdominal discomfort, blood in stools or black stools and change in bowel habits : Negative for dysuria, frequency and incontinence MUSCULOSKELETAL: Negative for joint pain or swelling, back pain, and muscle pain. SKIN: Negative for lesions, rash, and itching. HEMATOLOGY/LYMPHOLOGY Negative for prolonged bleeding, bruising easily, and swollen nodes. NEURO: Negative for numbness or tingling of hands/feet. No weakness. PHYSICAL EXAMINATION: There were no vitals taken for this visit. There were no vitals taken for this visit. No data found for this vital: Wt General appearance:ECOG PERFORMANCE STATUS: 1- Restricted in physically strenuous activity. Carries out light duty. Patient in NAD. Skin: Skin color, texture, turgor normal. No rashes or lesions. Eyes: Anicteric sclera. Pupils are equally round and reactive to light. Extraocular movements are intact. Breast: No palpable breast masses. No nipple change or discharge. Lymph Nodes: No cervical, supraclavicular, axillary or inguinal adenopathy. Oropharynx: Lips, mucosa, and tongue normal. Back: No pain to percussion. Negative SLR test Lungs clear to auscultation, No wheezing or r (more content not included)... Normal [facility] Ambulatory Visit Summaryon 1 Ambulatory Visit Summary Ambulatory Visit Summary KINGSLEY JENNINGS :1935 Visit Date:02/29/2024 Ambulatory Visit Instructions Your Diagnosis Bladder cancer Urinary retention Kidney stone BPH with obstruction/lower urinary tract symptoms Elevated PSA Your Care Team Attending Physician - Eusebia GALINDO MD Primary Care Physician - Jennifer Estes MD This Is Your Medications List Contact [...] inguinal hernia. Discharge Vitals Temperature (Temporal Artery) 37 ?C Heart Rate (Peripheral) 70 Respiratory Rate 16 Blood Pressure 138/71 Height 178 cm Height 70 in Weight 73 kg Weight 160.6 lb BMI 23.04 What to do next You Need to Schedule the Following Appointments Follow Up with MATEO DICK, ZELDA Goodwin When: Where: [address] [place] [address]- Medications What How Much When Instructions Unchanged [...] prescribing physician if questions or concerns Allergies Adhesive Bandage (Blisters) Problems Ongoing - Any problem that you are currently receiving treatment for. 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 Ischemic heart disease Right bundle branch block Patient Survey You may receive a survey via text or e-mail asking about your office visit. Please share your experience with us by completing your survey. We appreciate your feedback and thank you for choosing us for your care. Education Materials Bladder Cancer Bladder cancer is a condition [...] of cancer. This includes: ? A family hi (more content not included)... Normal [facility] Urology Office/Clinic Noteon 02-29-2024 Urology Office/Clinic Note Urology Office/Clinic Note Chief Complaint Review pathology from TURBT HPI Staff 88 yr ld male here for f/u to cysto/TURBT (resection) rev path dx: gross hematuria, bladder mass, bladder pain, kidney stone, BPH with obstruction/LUTS, elevated PSA. *Tamsulosin 0.4mg qd per PCP. CTU 12/26/23 [facility] showed urinary bladder right lateral wall mass. S/p Cysto 01/15/24. Incomplete bladder emptying: Pt has catheter since procedure Hematuria: denies Leaking: denies Abdominal pain: denies Flank pain: denies History of Present Illness Tests reviewed: reviewed UA & path. I have reviewed the previous health record information and history for this patient from Dr. Galindo. I have reviewed and verified the staff [...] & Measurements T: 37 ?C(Temporal Artery) HR: 70(Peripheral) RR: 16 BP: 138/71 HT: 70 in HT: 178 cm WT: 73 kg WT: 160.6 lb BMI: 23.04 General Appearance: alert, no distress, well nourished, well developed male. Assessment/Plan Pt accompanied by son today. 1. 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 Results reviewed with pt and his son in detail. Called and spoke with [facility] pathologist. Reviewed pathology slides and he confirmed that there is no muscle present. S/p cysto, TURBT, deep bladder biopsies of previous resection beds x 8 02/21/24. Howe removed IO today. Path ~fragments of urinary bladder wall with ulceration granulation tissue hemorrhage and fibrosis consistent with previous resection site. No evidence of residual transitional cell carcinoma is identified. 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 No evidence of lamina propria or muscle invasion is identified. Results reviewed with pt and his son. Will proceed with BCG #6 full doses. Pt to be scheduled in 3 weeks. Explained to pt there is a national shortage of BCG and he may require receiving treatment at a different center. -BCG #6 in 3 weeks -Cystoscopy to follow completion of treatment. The risks and benefits for cystoscopy have been discussed. The risks include bleeding, infection, and irritation of the bladder and urinary channel, among others. The patient, after being informed of procedural details and after questions have been answered, wishes to proceed. Full informed consent has been obtained. Will order Local anesthesia. 2. Urinary retention (R33.9: Retention of urine, unspecified) Pt's son called 02/18/24 reporting that pt took an at home UTI test and it was positive for a UTI. Pt was experiencing frequency, nocturia (every hour) and voiding small amounts. PVR in office 02/18/24 137 mL. UA was suspicious for infection. Neg urine culture. Tx'd w/ Keflex. Pt did experience UR after Howe was removed. Presented to [facility] ER 02/18/24 and Howe was replaced. Given recent UR episode I recommend providing pt with CIC supplies to take home with him in the event if he is unable to urinate. Script sent for Keflex 250mg bid x 5 days. Pt (more content not included)... Normal [facility] Comment on above: Result Comment: Elec tronically Signed By: MATEO DICK, Eusebia Beckman\.sammy\Date and Time Signed: 02/29/24 13:02 EDT\.br\Electronically Co-Signed By: Kate Seth\.sammy\Date and Time Co-Signed: 02/29/24 12:58 EDT Bryce 02-21-2024 L Specimen: [id number] Received: 02/22/24 Status: GIL Mcmanus Num: [id number] Spec Type: Surgical Subm Dr: Eusebia Galindo MD Tissues: A Urinary Bladder - biopsy (BLADDER BX TUMOR BED) B Urinary Bladder - biopsy (BLADDER TUMOR) Procedures: HE/4, Gross/Micro L4/2 Age/ Patient Sex Location Account Attending Physician Kingsley Jennings 88/M LABELL [id number] Eusebia Galindo MD SPEC NUM: [id number] RECD: 02/22/24 STATUS: GIL MCMANUS NUM: [id number] TANNER: 02/21/[address]: Eusebia Galindo MD ENTERED: 02/22/[address] [facility] [address]: Isaiah Porras SPEC TYPE: Surgical DEPT: COLIN MENDOZA ENTERED BY: [id number] RECV BY: [id number] ORDERED: HE/4, Gross/Micro L4/2 ORDERED: HE/4, Gross/Micro L4/2 Pathological Diagnosis A. Bladder, prior resection of tumor bed, biopsy: - Fragments of denuded urinary bladder mucosa with ulcerative granulation tissue, marked acute inflammation and fibrosis consistent with previous procedure site change. - No definite evidence of malignancy identified. B. Bladder tumor, biopsy: - Low grade papillary urothelial carcinoma. - Suspicious for invasion into lamina propria. - Fragments of ulcerative granulation tissue with marked acute inflammation and fibrosis. - Muscularis propria is present and negative for tumor. Clinical Information Bladder cancer Gross Description Part [...] name and bladder tumor and consists of ---- Specimen: [id number] Received: 02/22/24 Status: GIL Mcmanus Num: [id number] Spec Type: Surgical Subm Dr: Eusebia Galindo MD Tissues: A Urinary Bladder - biopsy (BLADDER BX TUMOR BED) B Urinary Bladder - biopsy (BLADDER TUMOR) Procedures: HE/Carmelo, Gross/Micro L4/2 ---- Patient: Kingsley Jennings [id number] (Continued) ---- Specimen: [id number] Received: 02/22/24 (Continued) Gross Description (Continued) Signed (signature on file) Geo Finnegan MD 03/13/24 0928 ---- Specimen: [id number] Received: 02/22/24 Status: GIL Mcmanus Num: [id number] Spec Type: Surgical Subm Dr: Eusebia Galindo MD Tissues: A Urinary Bladder - biopsy (BLADDER BX TUMOR BED) B Urinary Bladder - biopsy (BLADDER TUMOR) Procedures: HE/4, Gross/Micro L4/2 ---- Patient: MarcellaKingsley [id number] (Continued) ---- Specimen: [id number] Received: 02/22/24 (Continued) Gross Description (Continued) multiple lowe hemorrhagic soft tissue fragments measuring 1.5 x 0.7 x 0.3 cm in aggregate. The specimen is filtered entirely submitted cassette B1. Microscopic Description A B: Microscopic examination is performed. CPT Codes 48090 x 2 ---- ---- Specimen: [id number] Received: 02/22/24 Status: GIL Mcmanus Num: [id number] Spec Type: Surgical Subm Dr: Eusebia Galindo MD Tissues: A Urinary Bladder - biopsy (BLADDER BX TUMOR BED) B Urinary Bladder - biopsy (BLADDER TUMOR) Procedures: HE/4, Gross/Micro L4/2 ---- Patient: Kingsley Jennings [id number] (Continued) ---- Signed (signature on file) Geo Finnegan MD 03/13/24927 [facility] C Urineon 02-20-2024 Bacteria identified Cx Nom (U) Microbiology PROCEDURE: Urine Culture [R1] SOURCE: U Random BODY SITE: COLLECTED DATE/TIME: 02/18/2024 10:53 EDT RECEIVED DATE/TIME: 02/18/2024 18:47 EDT START DATE/TIME: 02/18/2024 18:47 EDT FREE TEXT SOURCE: MATEO DICK, Eusebia GALINDO MD, Eusebia Beckman FINAL REPORTS Final Report [] Verified Date/Time: 02/20/2024 13:02 EDT 200 cfu/ml Mixed skin contaminants Performing Locations R1: This test was performed at: [facility], [address] [place] [address], [address] , , [facility] Comment on above: Performed By: #### 2 [id number] #### [facility] [address] [place] [address] Ambulatory Visit Summaryon 1 Ambulatory Visit Summary Ambulatory Visit Summary KINGSLEY JENNINGS :1935 Visit Date:02/18/2024 Ambulatory Visit Instructions Your Diagnosis BPH with obstruction/lower urinary tract symptoms Urinary frequency Dysuria Your Care Team Attending Physician - MATEO DICK, REYNALDO Primary Care Physician - Jennifer Estes MD This Is Your Medications List amlodipine [...] Follow-Up Appointments Sunday 11:00 AM EDT With: Eusebia GALINDO MD Where: [facility] [address] [address]- Medications What How Much When Instructions Unchanged [...] for choosing us for your care. Normal [facility] Urology Office/Clinic Noteon 02-15-2024 Urology Office/Clinic Note [...] and history for this patient from Dr. Galindo. 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 Results reviewed with pt and his son in detail. Called and spoke with [facility] pathologist. Reviewed pathology slides and he confirmed [...] PSA 08/02/15 - 4.89 04/10/17 - 4.17 03/07/18 - 4.59 07/20/17 - 4.9 & 26.1% (just a total was also done that day, 4.30) 08/06/20 - 5.25 08/16/20 - 6.1 & 32.6% S/p TRUS/bx 03/24/09 by PRW - BPH with chronic inflammation. GRACE in left lateral mid. S/p TRUS/bx 08/04/09 by PRW - BPH w (more content not included)... Normal [facility] Comment on above: Result Comment: Elec tronically Signed By: MATEO DICK, Eusebia Beckman\.br\Date and Time Signed: 02/15/24 09:23 EDT\.br\Electronically Co-Signed By: Kate Seth\.br\Date and Time Co-Signed: 02/15/24 09:16 EDT Bryce 02-07-2024 L Specimen: [id number] Received: 02/08/24 Status: GIL Reanil Num: [id number] Spec Type: Surgical Subm Dr: Eusebia Galindo MD Tissues: A Urinary Bladder - biopsy (BLADDER TUMOR) Procedures: HE/2, Gross/Micro L4 Age/ Patient Sex Location Account Attending Physician Kingsley Jennings 88/M LABELL [id number] Eusebia Galindo MD SPEC NUM: [id number] RECD: 02/08/24 STATUS: GIL PEREZ NUM: [id number] TANNER: 02/07/24-[address]: Eusebia Galindo MD ENTERED: 02/08/[address] [facility] [address]: Isaiah Porras SPEC TYPE: Surgical DEPT: COLIN MENDOZA ENTERED BY: [id number] RECV BY: [id number] ORDERED: HE/2, Gross/Micro L4 ORDERED: HE/2, Gross/Micro L4 Pathological Diagnosis Urinary bladder tumor, TURBT -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 ---- Specimen: [id number] Received: 02/08/24 Status: GIL Perezanil Num: [id number] Spec Type: Surgical Subm Dr: Eusebia Galindo MD Tissues: A Urinary Bladder - biopsy (BLADDER TUMOR) Procedures: HE/2, Gross/Micro L4 ---- Patient: Kingsley Jennings [id number] (Continued) ---- Specimen: [id number] Received: 02/08/24 (Continued) Signed (signature on file) Philomena Busch MD 02/11/24 1728 ---- Specimen: [id number] Received: 02/08/24 Status: GIL Mcmanus Num: [id number] Spec Type: Surgical Subm Dr: Eusebia Galindo MD Tissues: A Urinary Bladder - biopsy (BLADDER TUMOR) Procedures: HE/2, Gross/Micro L4 ---- Patient: Kingsley Jennings [id number] (Continued) ---- Specimen: [id number] Received: 02/08/24 (Continued) Microscopic Description Microscopic examinations are performed supporting the above interpretation CPT Codes 65571 ---- ---- Specimen: [id number] Received: 02/08/24-1511 Status: GIL Mcmanus Num: [id number] Spec Type: Surgical Subm Dr: Eusebia Galindo MD Tissues: A Urinary Bladder - biopsy (BLADDER TUMOR) Procedures: HE/2, Gross/Micro L4 ---- Patient: Kingsley Jennings [id number] (Continued) ---- Signed (signature on file) Philomena Busch MD 02/11/241727 Normal [facility] Office Visiton 01-28-2024 Follow-up visit [id number] Fernie Jennings 1935 M Date Provider Department Center 01/28/2024 Niurka-VINH GUZMAN ESPINOZA [place] [facility] No family history on file Level of Service:78948 [place] OFFICE/OUTPATIENT ESTABLISHED MOD MDM 30 MIN Normal [facility] Main OR Intraoperative Recor don 01-15-2024 Main OR Intraoperative Record Main OR Intraoperative Record IntraOp Document Type FTURO Summary Primary Physician: Eusebia GALINDO MD Finalized Date/Time: 01/15/24 11:19:04 Pt. Name: KINGSLEY JENNINGS /Sex: 1935 Male Med Rec #: [id number] Physician: Eusebia GALINDO MD Financial #: [id number] Pt. Type: O Room/Bed: / Admit/Disch: 01/15/24 09:34:43 - Institution: Case Times FTURO Entry 1 Patient Times In Room 01/15/24 11:04:00 Out Room 01/15/24 11:16:00 Procedure Times Start 01/15/24 11:07:00 Stop 01/15/24 11:11:00 Anesthesia Times Last Modified By: Yasmin MARQUIS, Luanne Guardado 01/15/24 11:11:03 Case Attendance FTURO Entry 1 Entry 2 Entry 3 Case Attendee MATEO DICK, Eusebia Hoffman RN, Deborah Rodríguez Role Performed Surgeon - Primary Child Psychology Teacher - Primary Scrub - Primary Time In [...] CYSTOSCOPY LOCAL Primary Procedure Yes Primary Surgeon Eusebia GALINDO MD Start 01/15/24 11:07:00 Stop 01/15/24 11:11:00 [...] Availability Equipment, Medication Time Out MATEO DICK, Eusebia Beckman, Verified (If Participants Yasmin MARQUIS, Luanne Applicable) Shagufta Guardado, Deborah Escalera, MODESTO DICK, MIKAYLA Time Out Complete 01/15/24 [...] By: Luanne Hoffman RN 01/15/24 11:19 Normal [facility] Main OR Preoperative Recordo n 01-15-2024 Main OR Preoperative Record Main OR Preoperative Record Holding Area Document Type FTURO Summary Primary Physician: Eusebia GALINDO MD Finalized Date/Time: 01/15/24 10:31:41 Pt. Name: KINGSLEY JENNINGS /Sex: 1935 Male Med Rec #: [id number] Physician: Eusebia GALINDO MD Financial #: [id number] Pt. Type: O Room/Bed: / Admit/Disch: 01/15/24 [...] Complaints of Pain: No Skin Integrity Intact, [place], Warm, & Dry Vitals - EU Blood Pressure 126/73 Pulse 80 bpm Respirations 18 br/min SPO2 Additional None Specimens Collected Last Modified By: Mari Estrella LPN 01/15/24 10:31:36 Finalized By: Mari Estrella LPN Document Signatures Signed By: Mari Estrella LPN 01/15/24 10:31 Normal [facility] Operative Reporton Operative Report Operative Report Patient: KINGSLEY JENNINGS Age: 88 years Sex: Male : 1935 Associated Diagnoses: None Author: Eusebia GALINDO MD Procedure Operative Information Details: Date/ Time: [...] for cystoscopy and TURBT under anesthesia.. Normal [facility] Comment on above: Result Comment: Elec tronically Signed By: Eusebia GALINDO MD\.br\Date and Time Signed: 01/15/24 11:16 EDT Urine Cytology ([facility])on 12-30-2023 Microscopic exam Cytology (U) [Interp] Diagnosis Info Invalid Interpretation Code [facility] Comment on above: Result Comment: A:Ur [...] on: 12/30/2023 11:24:24 Performed By: #### 1 [id number] ####[facility] [address] [place] [address] Ambulatory Visit Summaryon 0 12-25-2023 Ambulatory Visit Summary Ambulatory Visit Summary KINGSLEY JENNINGS :1935 Visit Date:12/25/2023 Ambulatory Visit Instructions Your Diagnosis Gross hematuria Bladder mass Kidney stone BPH with obstruction/lower urinary tract symptoms Elevated PSA Tests Performed CT Urogram -- Results Pending -- Please visit your patient portal for your results or contact your primary care physician. Your Care Team Attending Physician - BRISA FULLER PA-C Primary Care Physician - Jennifer Estes MD Referring Physician - Jennifer Estes MD This Is Your Medications List Contact [...] Schedule the Following Appointments Follow Up with BRISA FULLER PA-C, URL When: Where: [address] [place] [phone] Medications What How Much When Instructions Unchanged [...] ? Un (more content not included)... Normal [facility] Ambulatory Visit Summary Ambulatory Visit Summary KINGSLEY JENNINGS :1935 Visit Date:12/25/2023 Ambulatory Visit Instructions Your Diagnosis Gross hematuria Bladder mass Kidney stone BPH with obstruction/lower urinary tract symptoms Elevated PSA Tests Performed CT Urogram -- Results Pending -- Please visit your patient portal for your results or contact your primary care physician. Your Care Team Attending Physician - BRISA FULLER PA-C Primary Care Physician - Jennifer Estes MD Referring Physician - Jennifer Estes MD This Is Your Medications List Contact [...] Schedule the Following Appointments Follow Up with BRISA FULLER PA-C, URL When: Where: [address] [place] [address] [phone] Medications What How Much When Instructions Unchanged [...] ? Un (more content not included)... Normal [facility] Urine Cytology ([facility])on 0 12-25-2023 Method of Extraction Voided Normal [facility] Comment on above: Performed By: #### 1 [id number] ####[facility] [address] [facility] [place] [address] Number of Jars 1 Invalid Interpretation Code [facility] Comment on above: Performed By: #### 1 [id number] ####[facility] [address] [facility] [place] [address] Specimen Urine Normal [facility] Comment on above: Performed By: #### 1 [id number] ####[facility] [address] [facility] [place] [address] Type of Service Technical Only Normal [facility] Comment on above: Performed By: #### 1 [id number] ####[facility] [address] [facility] [place] [address] Urology Office/Clinic Noteon 12-25-2023 Urology Office/Clinic Note Urology Office/Clinic Note Chief Complaint New patient gross hematuria HPI Staff New pt referred by Dr. Jennifer Estes for UTI, gross hematuria, and BPH. Last seen IO 06/18/[address] Galindo, was on Flomax at that time. S/p [...] male new pt referred by Dr. Jennifer Estes for UTI, hematuria, and BPH. Prior Dr. Galindo pt, last seen in 2018. Pt here [...] may act (more content not included)... Normal [facility] Comment on above: Result Comment: Elec tronically Signed By: BRISA FULLER PA-C\.br\Date and Time Signed: 12/25/23 09:32 EDT\.br\Electronically Co-Signed By: Hortencia Thomas\.br\Date and Time Co-Signed: 12/25/23 09:24 EDT Office Visiton 08-08-2023 Follow-up visit [id number] Fernie Jennings 1935 M Date Provider Department [facility] No family history on file Level of Service:05310 [place] OFFICE/OUTPATIENT ESTABLISHED LOW MDM 20 MIN Normal [facility] Office Visiton 02-06-2023 Follow-up visit [id number] Fernie Jennings 1935 M Date Provider Department Center 02/06/[address] [facility] No family history on file Level of Service:37578 [place] OFFICE/OUTPATIENT ESTABLISHED LOW MDM 20-29 MIN Normal [facility] OCC BLD IMMUNO SCREENon 07-12 OCCULT BLOOD Negative Normal NEGATIVE [facility] Comment on above: Performed By: #### O BSCRN #### [facility] Laboratory [address] [place] [address] Dr. Gricel Busch MRI LSPINE WO CONon [...] neural foraminal stenosis Electronically authenticated by: GAY BAEZA Date: 2022-06-09 09:46 Normal [facility] CT TSPINE WO CONon 2 CT [...] by: MACY MICHAEL Date: 2022-01-05 16:34 Normal [facility] CBC COMPLETE BLOOD COUNTon 0 12-29-2021 Erythrocyte distribution width (RBC) [Ratio] 13.4 % Normal 11.5-15.0 [facility] Comment on above: Order Comment: No: D o not add to previous draw Performed By: #### 5 0608 #### [facility] [address] [place] [address], [facility] Hematocrit (Bld) [Volume fraction] 38.5 % Low 39.0-50.0 [facility] Comment on above: Order Comment: No: D o not add to previous draw Performed By: #### 5 0608 #### [facility] [address] [place] [address], [facility] Hemoglobin (Bld) [Mass/Vol] 13.5 g/dL Normal 13.0-17.0 [facility] Comment on above: Order Comment: No: D o not add to previous draw Performed By: #### 5 0608 #### [facility] [address] [place] [address], [facility] MCH (RBC) [Entitic mass] 32.4 pg Normal 27.0-33.0 [facility] Comment on above: Order Comment: No: D o not add to previous draw Performed By: #### 5 0608 #### [facility] [address] [place] [address], [facility] MCHC (RBC) [Mass/Vol] 35.1 g/dL High 32.0-35.0 [facility] Comment on above: Order Comment: No: D o not add to previous draw Performed By: #### 5 0608 #### [facility] [address] [place] [address], [facility] MCV (RBC) [Entitic vol] 92.3 fL Normal 82.0-98.0 [facility] Comment on above: Order Comment: No: D o not add to previous draw Performed By: #### 5 0608 #### [facility] [address] [place] [address], [facility] Nucleated RBC/100 WBC (Bld) [Ratio] 0 % Normal 0-0 [facility] Comment on above: Order Comment: No: D o not add to previous draw Performed By: #### 5 0608 #### [facility] [address] [place] [address], [facility] PLAT CNT 165 10*3/uL Normal 150-400 [facility] Comment on above: Order Comment: No: D o not add to previous draw Performed By: #### 5 0608 #### [facility] [address] [place] [address], [facility] RBC (Bld) [#/Vol] 4.17 10*6/uL Low 4.20-5.70 [facility] Comment on above: Order Comment: No: D o not add to previous draw Performed By: #### 5 0608 #### [facility] [address] [place] [address], [facility] WBC (Bld) [#/Vol] 8.33 10*3/uL Normal 4.00-10.60 [facility] Comment on above: Order Comment: No: D o not add to previous draw Performed By: #### 5 0608 #### [facility] [address] [place] [address], [facility] CREATININE BLOODon 2 Creatinine [Mass/Vol] 0.82 mg/dL Normal 0.70-1.30 [facility] Comment on above: Order Comment: No: D o not add to previous draw Performed By: #### 2 5656 #### [facility] [address] [place] [address], [facility] GFR/1.73 sq M.predicted among non-blacks MDRD (S/P/Bld) [Vol rate/Area] mL/min/{1.73_m2} Normal >60 [facility] Comment on above: Order Comment: No: D o not add to previous draw Result Comment: [facility]'s estimated glomerular filtration rate (eGFR) will [...] individuals. Performed By: #### 2 [id number] #### [address] Cardiovascular Lab Reporton 12-29-2021 Cardiovascular Lab Report [facility] Patient Name: Marcella [facility] D MR #: [id number] Department of Physician: Adeline Carlos M.D. Division of Service Date: 12/28/2021 Cardiology Birthdate: 1935 Adult Cardiovascular Room #: 3AB [id number] [place] [address] Cardiovascular Laboratory Report FINAL IMPRESSIONS: 1. 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 Sharif in the [place] office in the next 2-4 weeks. 7. Follow up with Dr. Estes as scheduled. PROCEDURES: Ultrasound-guided access to the right common femoral artery, limited femoral angiography, bilateral selective coronary angiography, angiography of internal mammary artery graft, angiography of the saphenous vein graft, placement of a 6-Icelandic MynxGrip closure device. METHODS: After risks, benefits, [...] was performed. This was upsized to a 6-Icelandic 11 cm sheath. Bilateral selective coronary angiography [...] the procedure. All catheters were removed. A 6-Icelandic MynxGrip closure device was deployed per protocol [...] marginals. Distal filling is seen into the ekwok obtuse marginal via saphenous vein graft. Just [...] patent (more content not included)... Normal [facility] TROPONIN-Ion 12-28-2021 Troponin I.cardiac [Mass/Vol] 0.09 ng/mL High 0.00-0.04 [facility] Comment on above: Order Comment: No: D o not add to previous draw Result Comment: REFE RENCE RANGES: 0.00 - 0.04 ng/ml NORMAL 0.05 - 0.50 ng/ml INDETERMINATE > 0.50 ng/ml CONSISTENT WITH AN M.I. Performed By: #### 3 [id number] #### [facility] [address] CBC AUTO DIFFon 12-26-2021 BASO # 0.0 103/ul Normal 0.0-0.1 [facility] Comment on above: Performed By: #### C BC #### [facility] [address] [address] [address] Gricel Busch Basophils/100 WBC (Bld) 0.6 % Normal 0.2-2.0 [facility] Comment on above: Performed By: #### C BC #### [facility] [address] [address] [address] Gricel Busch EO # 0.1 103/ul Normal 0.0-0.7 [facility] Comment on above: Performed By: #### C BC #### [facility] [address] [address] [address] Gricel Busch Eosinophils/100 WBC (Bld) 1.8 % Normal 0.9-7.0 [facility] [facility] Comment on above: Performed By: #### C BC #### [facility] [address] [place] [address] Dr. Gricel Busch Erythrocyte distribution width (RBC) [Ratio] 13.1 % Normal 11.0-15.0 [facility] Comment on above: Performed By: #### C BC #### [facility] [address] [place] [address] Dr. Gricel Busch Hematocrit (Bld) [Volume fraction] 42.4 % Normal 42.0-54.0 [facility] Comment on above: Performed By: #### C BC #### [facility] [address] [place] [address] Dr. Gricel Busch Hemoglobin (Bld) [Mass/Vol] 13.9 g/dL Critically low 14.0-18.0 [facility] Comment on above: Performed By: #### C BC #### [facility] [address] [place] [address] Dr. Gricel Busch IG # 0.03 10e3/ul Normal 0.00-0.03 [facility] Comment on above: Performed By: #### C BC #### [facility] [address] [place] [address] Dr. Gricel Busch IG % 0.4 % Normal 0.0-0.5 [facility] Comment on above: Performed By: #### C BC #### [facility] [address] [place] [address] Dr. Gricel Busch LYMPH # 1.2 103/ul Normal 1.2-3.8 [facility] Comment on above: Performed By: #### C BC #### [facility] [address] [place] [address] Dr. Gricel Busch Lymphocytes/100 WBC (Bld) 16.9 % Critically low 20.5-60.0 [facility] Comment on above: Performed By: #### C BC #### [facility] [address] [place] [address] Dr. Gricel Busch MANUAL DIFF REQ NO Normal [facility] Comment on above: Performed By: #### C BC #### [facility] [address] [place] [address] Dr. Gricel Busch MCH (RBC) [Entitic mass] 31.3 pg Normal 25.9-34.0 [facility] Comment on above: Performed By: #### C BC #### [facility] [address] [place] [address] Dr. Gricel Busch MCHC (RBC) [Mass/Vol] 32.8 g/dL Normal 29.9-35.2 [facility] Comment on above: Performed By: #### C BC #### [facility] [address] [place] [address] Dr. Gricel Busch MCV (RBC) [Entitic vol] 95.5 fL Critically high 80.0-94.0 [facility] Comment on above: Performed By: #### C BC #### [facility] [address] [place] [address] Dr. Gricel Busch MONO # 0.8 103/ul Normal 0.3-0.8 [facility] Comment on above: Performed By: #### C BC #### [facility] [address] [place] [address] Dr. Gricel Busch Monocytes/100 WBC (Bld) 10.9 % Normal 1.7-12.0 [facility] Comment on above: Performed By: #### C BC #### [facility] [address] [place] [address] Dr. Gricel Busch NEUT # 4.9 103/ul Normal 1.4-6.5 [facility] Comment on above: Performed By: #### C BC #### [facility] [address] [place] [address] Dr. Gricel Busch Neutrophils/100 WBC (Bld) 69.4 % Normal 43.0-75.0 [facility] Comment on above: Performed By: #### C BC #### [facility] [address] [place] [address] Dr. Gricel Busch Platelet mean volume (Bld) [Entitic vol] 9.6 fL Normal 9.5-13.5 [facility] Comment on above: Performed By: #### C BC #### [facility] [address] [address] [address] Gricel Busch PLT 191 103/ul Normal 150-450 [facility] Comment on above: Performed By: #### C BC #### [facility] [address] [address] [address] Gricel Busch RBC 4.44 106/ul Critically low 4.70-6.10 [facility] Comment on above: Performed By: #### C BC #### [facility] [address] [id number] [address] Gricel Busch WBC 7.1 103/ul Normal 4.0-11.0 [facility] Comment on above: Performed By: #### C BC #### [facility] [address] [place] [address] Dr. Gricel Busch Covid-19 PCR ([facility])on 12-12 SARS-CoV-2 (COVID-19) RNA NIR+probe Ql (Unsp spec) Not detected Normal NOT DETECTED [facility] Comment on above: Result Comment: This test is not yet approved or cleared by the [place] FDA. When there are no FDA-approved or cleared tests available, and other criteria are met, FDA can make tests available under an emergency access mechanism called an Emergency Use Authorization (EUA). The EUA for this test is supported by the Institutional Aide of Health and Human Service's (HHS's) declaration [...] SARS-CoV-2. Performed By: #### C VDTBH #### [facility] [address] [place] [address] Dr. Gricel Busch PROF CHEM 8 (BAS METB)on Anion gap [Moles/Vol] 9.6 mmol/L Normal [facility] Comment on above: Performed By: #### B MP #### [facility] [address] [address] [address] Gricel Busch Calcium [Mass/Vol] 9.8 mg/dL Normal 8.5-10.1 [facility] Comment on above: Performed By: #### B MP #### [facility] [address] [address] [address] Gricel Busch Chloride [Moles/Vol] 102 mmol/L Normal 98-107 [facility] Comment on above: Performed By: #### B MP #### [facility] [address] [address] [address] Gricel Busch CO2 [Moles/Vol] 28.1 mmol/L Normal 21.0-32.0 [facility] Comment on above: Performed By: #### B MP #### [facility] [address] [address] [address] Gricel Busch Creatinine [Mass/Vol] 0.88 mg/dL Normal 0.70-1.30 [facility] Comment on above: Performed By: #### B MP #### [facility] [address] [place] [address] Dr. Gricel Busch EGFR-AF MONTSERRATIAN >60 Normal >=60 [facility] Comment on above: Performed By: #### B MP #### [facility] [address] [address] [address] Gricel Busch EGFR-NON AF MONTSERRATIAN >60 Normal >=60 [facility] Comment on above: Performed By: #### B MP #### [facility] [address] [address] [address] Gricel Busch Glucose [Mass/Vol] 101 mg/dL Normal 74-106 [facility] Comment on above: Performed By: #### B MP #### [facility] [address] [place] [address] Dr. Gricel Busch Potassium [Moles/Vol] 4.7 mmol/L Normal 3.5-5.1 [facility] Comment on above: Performed By: #### B MP #### [facility] [address] [address] [address] Gricel Busch Sodium [Moles/Vol] 135 mmol/L Critically low 136-145 Th [facility] Comment on above: Performed By: #### B MP #### [facility] [address] [address] [address] Griecl Busch Urea nitrogen [Mass/Vol] 12.0 mg/dL Normal 7.0-18.0 [facility] Comment on above: Performed By: #### B MP #### [facility] [address] [address] [address] Gricel Busch Urea nitrogen/Creatinin e [Mass ratio] 13.6 mg/mg Normal [facility] Comment on above: Performed By: #### B MP #### [facility] [address] [address] [address] Gricel Busch ECHOCARDIO M/2D COMPLETEon 0 12-21-2021 ECHOCARDIO M/2D COMPLETE Patient: KINGSLEY JENNINGS Exam Date: 12/21/2021 : 1935 Gender:M Ordering : DR JENNIFER ESTES . Admission #: [id number] Family : Order #: [id number] CLICK HERE TO VIEW EXAM ECHOCARDIOGRAM REPORT [...] Daniels M.D. on 12/21/2021 at 19:28 Normal [facility] NM STRESS/REST MULTIon 12-20 NM STRESS/REST MULTI Patient: KINGSLEY JENNINGS Exam Date: 12/20/2021 : 1935 Gender:M Ordering : DR JENNIFER ESTES . Admission #: [id number] Family : Order #: [id number] CLICK HERE TO VIEW EXAM RADIOLOGY REPORT [...] secondary to EKG changes Dictated by: Gay Baeza MD on 12/20/2021 at 14:09 Approved by: Gay Baeza MD on 12/20/2021 at 14:18 Normal [facility] Vital Signs Date Time Vital Sign Value Performing Clinician [facility] 06-03-2024 15:35-0500 Blood Pressure Location Eusebia GALINDO [facility] 06-03-2024 15:35-0500 Diastolic blood pressure 90 mm[Hg] Eusebiamarisol GALINDO [facility] 06-03-2024 15:35-0500 Heart rate 52 /min Eusebia GALINDO [facility] 06-03-2024 15:35-0500 Respiratory rate 16 /min Eusebia GALINDO [facility] 06-03-2024 15:35-0500 Systolic blood pressure 150 mm[Hg] Eusebia GALINDO [facility] 05-23-2024 13:21-0500 Body mass index (BMI) [Ratio] 24.38 kg/m2 Jacek Cano MD Work Phone: [facility] 05-23-2024 13:21-0500 Body temperature 97.2 [degF] Jacek Cano MD Work Phone: [facility] 05-23-2024 13:21-0500 Body weight 74.9 kg Jacek Cano MD Work Phone: [facility] 05-23-2024 13:21-0500 Diastolic blood pressure 70 mm[Hg] Jacek Cano MD Work Phone: [facility] 05-23-2024 13:21-0500 Heart rate 57 /min Jacek Cano MD Work Phone: [facility] 05-23-2024 13:21-0500 Respiratory rate 16 /min Jacek Cano MD Work Phone: [facility] 05-23-2024 13:21-0500 SaO2% (BldA) [Mass fraction] 97 % Jacek Cano MD Work Phone: [facility] 05-23-2024 13:21-0500 Systolic blood pressure 149 mm[Hg] Jacek Cano MD Work Phone: [facility] 05-22-2024 09:23-0500 Blood Pressure Location BRISA JONNY [facility] 05-22-2024 09:23-0500 Body temperature 98.6 [degF] BRISA JONNY [facility] 05-22-2024 09:23-0500 Diastolic blood pressure 68 mm[Hg] BRISA JONNY [facility] 05-22-2024 09:23-0500 Heart rate 60 /min BRISA JONNY [facility] 05-22-2024 09:23-0500 Respiratory rate 16 /min BRISA JONNY [facility] 05-22-2024 09:23-0500 Systolic blood pressure 112 mm[Hg] BRISA JONNY [facility] 05-02-2024 08:13-0500 Body mass index (BMI) [Ratio] 24.48 kg/m2 Selena Andrzej [employer]AL[employer] CONTROL INSPECTOR.VALIDATION MANAGER Work Phone: [facility] 05-02-2024 08:13-0500 Body temperature 97.2 [degF] Selena Andrzej [employer]CRA[employer] QUALITY CONTROL INSPECTOR.VALIDATION MANAGER Work Phone: [facility] 05-02-2024 08:13-0500 Body weight 75.2 kg Selena Andrzej [employer]CRAFT QUALITY CONTROL INSPECTOR.VALIDATION MANAGER Work Phone: [facility] 05-02-2024 08:13-0500 Diastolic blood pressure 68 mm[Hg] Selena Andrzej [employer]CRAFT QUALITY CONTROL INSPECTOR.VALIDATION MANAGER Work Phone: [facility] 05-02-2024 08:13-0500 Heart rate 55 /min Selena Andrzej [employer]CRAFT QUALITY CONTROL INSPECTOR.VALIDATION MANAGER Work Phone: [facility] 05-02-2024 08:13-0500 Respiratory rate 18 /min Selena Andrzej [employer]CRA[employer] QUALITY CONTROL INSPECTOR.VALIDATION MANAGER Work Phone: [facility] 05-02-2024 08:13-0500 SaO2% (BldA) [Mass fraction] 98 % Selena Andrzej [employer]CRA[employer] QUALITY CONTROL INSPECTOR.VALIDATION MANAGER Work Phone: [facility] 05-02-2024 08:13-0500 Systolic blood pressure 143 mm[Hg] Selena Andrzej [employer]CRA[employer] QUALITY CONTROL INSPECTOR.VALIDATION MANAGER Work Phone: [facility] 04-25-2024 08:35-0500 Body temperature 97.39 [degF] Chair Lanny Work Phone: [facility] 04-25-2024 08:35-0500 Diastolic blood pressure 75 mm[Hg] Chair [place] Work Phone: [facility] 04-25-2024 08:35-0500 Heart rate 61 /min Chair Lanny Work Phone: [facility] 04-25-2024 08:35-0500 Respiratory rate 16 /min Chair Lanny Work Phone: [facility] 04-25-2024 08:35-0500 SaO2% (BldA) [Mass fraction] 98 % Chair [place] Work Phone: [facility] 04-25-2024 08:35-0500 Systolic blood pressure 177 mm[Hg] Chair [place] Work Phone: [facility] 04-18-2024 08:55-0500 Body temperature 97.5 [degF] Chair Lanny Work Phone: [facility] 04-18-2024 08:55-0500 Diastolic blood pressure 75 mm[Hg] Chair [place] Work Phone: [facility] 04-18-2024 08:55-0500 Heart rate 50 /min Chair [place] Work Phone: [facility] 04-18-2024 08:55-0500 Respiratory rate 16 /min Chair Lanny Work Phone: [facility] 04-18-2024 08:55-0500 SaO2% (BldA) [Mass fraction] 100 % Chair [place] Work Phone: [facility] 04-18-2024 08:55-0500 Systolic blood pressure 145 mm[Hg] Chair [place] Work Phone: [facility] 04-11-2024 08:48-0500 Diastolic blood pressure 87 mm[Hg] Selena Andrzej AIRCRAFT QUALITY CONTROL INSPECTOR.VALIDATION MANAGER Work Phone: [facility] on [facility] 04-11-2024 08:48-0500 Systolic blood pressure 176 mm[Hg] Selena Andrzej AIRCRAFT QUALITY CONTROL INSPECTOR.VALIDATION MANAGER Work Phone: [facility] Comment on above: recheck- 04-11-2024 08:46-0500 Body height 175.3 cm Selena Andrezj [employer]CRAFT QUALITY CONTROL INSPECTOR.VALIDATION MANAGER Work Phone: [facility] 04-11-2024 08:46-0500 Body mass index (BMI) [Ratio] 24.48 kg/m2 Selena Andrzej AIRCRAFT QUALITY CONTROL INSPECTOR.VALIDATION MANAGER Work Phone: [facility] 04-11-2024 08:46-0500 Body temperature 97.81 [degF] Selena Andrzej AIRCRAFT QUALITY CONTROL INSPECTOR.VALIDATION MANAGER Work Phone: [facility] 04-11-2024 08:46-0500 Body weight 75.2 kg Selena Andrzej AIRCRAFT QUALITY CONTROL INSPECTOR.VALIDATION MANAGER Work Phone: [facility] 04-11-2024 08:46-0500 Heart rate 56 /min Selena Andrzej AIRCRAFT QUALITY CONTROL INSPECTOR.VALIDATION MANAGER Work Phone: [facility] 04-11-2024 08:46-0500 Respiratory rate 18 /min Selena Andrzej AIRCRAFT QUALITY CONTROL INSPECTOR.VALIDATION MANAGER Work Phone: [facility] 04-11-2024 08:46-0500 SaO2% (BldA) [Mass fraction] 97 % Selena Andrzej AIRCRAFT QUALITY CONTROL INSPECTOR.VALIDATION MANAGER Work Phone: [facility] 04-04-2024 08:45-0500 Body temperature 97.59 [degF] Chair [place] Work Phone: [facility] 04-04-2024 08:45-0500 Diastolic blood pressure 78 mm[Hg] Chair [place] Work Phone: [facility] 04-04-2024 08:45-0500 Heart rate 56 /min Chair [place] Work Phone: [facility] 04-04-2024 08:45-0500 Respiratory rate 16 /min Chair [place] Work Phone: [facility] 04-04-2024 08:45-0500 SaO2% (BldA) [Mass fraction] 99 % Chair [place] Work Phone: [facility] 04-04-2024 08:45-0500 Systolic blood pressure 155 mm[Hg] Chair [place] Work Phone: [facility] 03-28-2024 08:50-0500 Diastolic blood pressure 88 mm[Hg] Selena Andrzej AIRCRAFT QUALITY CONTROL INSPECTOR.VALIDATION MANAGER Work Phone: [facility] Comment on above: recheck 03-28-2024 08:50-0500 Systolic blood pressure 163 mm[Hg] Selena Andrzej AIRCRAFT QUALITY CONTROL INSPECTOR.VALIDATION MANAGER Work Phone: [facility] Comment on above: recheck 03-28-2024 08:48-0500 Body temperature 97.2 [degF] Selena Andrzej AIRCRAFT QUALITY CONTROL INSPECTOR.VALIDATION MANAGER Work Phone: [facility] 03-28-2024 08:48-0500 Body weight 75.1 kg Selena Andrzej AIRCRAFT QUALITY CONTROL INSPECTOR.VALIDATION MANAGER Work Phone: [facility] 03-28-2024 08:48-0500 Heart rate 59 /min Selena Andrzej AIRCRAFT QUALITY CONTROL INSPECTOR.VALIDATION MANAGER Work Phone: [facility] 03-28-2024 08:48-0500 Respiratory rate 16 /min Selena Andrzej AIRCRAFT QUALITY CONTROL INSPECTOR.VALIDATION MANAGER Work Phone: [facility] 03-28-2024 08:48-0500 SaO2% (BldA) [Mass fraction] 98 % Selena Andrzej AIRCRAFT QUALITY CONTROL INSPECTOR.VALIDATION MANAGER Work Phone: [facility] 03-14-2024 10:31-0400 Body temperature 97.59 [degF] Jacek Cano MD Work Phone: [facility] 03-14-2024 10:31-0400 Body weight 73.9 kg Jacek Cano MD Work Phone: [facility] 03-14-2024 10:31-0400 Diastolic blood pressure 73 mm[Hg] Jacek Cano MD Work Phone: [facility] 03-14-2024 10:31-0400 Heart rate 69 /min Jacek Cano MD Work Phone: [facility] 03-14-2024 10:31-0400 Respiratory rate 16 /min Jacek Cano MD Work Phone: [facility] 03-14-2024 10:31-0400 SaO2% (BldA) [Mass fraction] 98 % Jacek Cano MD Work Phone: [facility] 03-14-2024 10:31-0400 Systolic blood pressure 139 mm[Hg] Jacek Cano MD Work Phone: [facility] 02-29-2024 11:56-0400 Blood Pressure Location Eusebia GALINDO [facility] 02-29-2024 11:56-0400 Body temperature 98.6 [degF] Eusebia GALINDO [facility] 02-29-2024 11:56-0400 Diastolic blood pressure 71 mm[Hg] Eusebia GALINDO [facility] 02-29-2024 11:56-0400 Heart rate 70 /min Eusebia GALINDO [facility] 02-29-2024 11:56-0400 Respiratory rate 16 /min Eusebia GALINDO [facility] 02-29-2024 11:56-0400 Systolic blood pressure 138 mm[Hg] Eusebai GALINDO [facility] 02-15-2024 08:29-0400 Blood Pressure Location Eusebia GALINDO [facility] 02-15-2024 08:29-0400 Body temperature 98.6 [degF] Eusebia GALINDO [facility] 02-15-2024 08:29-0400 Diastolic blood pressure 73 mm[Hg] Eusebia GALINDO [facility] 02-15-2024 08:29-0400 Heart rate 62 /min Eusebia GALINDO [facility] 02-15-2024 08:29-0400 Respiratory rate 16 /min Eusebia GALINDO [facility] 02-15-2024 08:29-0400 Systolic blood pressure 129 mm[Hg] Eusebia GALINDO [facility] 12-25-2023 08:38-0400 Body temperature 97.88 [degF] BRISA FULLER [facility] 12-25-2023 08:38-0400 Diastolic blood pressure 82 mm[Hg] BRISA JONNY [facility] 12-25-2023 08:38-0400 Heart rate 58 /min BRISA JONNY [facility] 12-25-2023 08:38-0400 Respiratory rate 16 /min BRISA JONNY [facility] 12-25-2023 08:38-0400 Systolic blood pressure 150 mm[Hg] BRISA JONNY [facility] Encounters Encounter Date Encounter Type Care Provider Facility Start: 06-03-2024 End: 06-03-2024 ambulatory Eusebia GALINDO Facility:[facility] Start: 06-03-2024 End: 06-03-2024 Lab Drop off Eusebia GALINDO [facility] Start: 06-03-2024 End: 06-03-2024 ambulatory Eusebia GALINDO Facility:[facility] Start: 06-03-2024 End: 06-03-2024 Patient encounter procedure Eusebia GALINDO [facility] Start: 05-23-2024 End: 05-23-2024 Office outpatient visit 15 minutes Jacek Cano MD Work Phone: Hematology/Oncology Comment on above: Malignant neoplasm o f urinary bladder, unspecified site (HCC) (Primary Dx) Start: 05-23-2024 End: 05-23-2024 [facility] Start: 05-22-2024 End: 05-22-2024 ambulatory BRISA FULLER Facility:[facility] Start: 05-22-2024 End: 05-22-2024 Patient encounter procedure BRISA FULLER [facility] Start: 05-20-2024 End: 05-20-2024 Telephone encounter Liana Mcghee RN Work Phone: Hematology/Oncology Comment on above: Care Coordination (M edication question) Start: 05-15-2024 End: 05-16-2024 Telephone encounter Liana Mcghee RN Work Phone: Hematology/Oncology Comment on above: Care Coordination (r esults) Start: 05-12-2024 End: 05-12-2024 ambulatory [facility] Facility:[facility] Start: 05-02-2024 End: 05-02-2024 Nursing evaluation of patient and report Ma Nurse Kyle Ryan Work Phone: Hematology/Oncology Comment on above: Malignant neoplasm o f urinary bladder, unspecified site (HCC) (Primary Dx) Start: 05-02-2024 End: 05-02-2024 Office outpatient visit 25 minutes Selena Donnelly APRN.CNP Work Phone: Hematology/Oncology Comment on above: Malignant neoplasm o f urinary bladder, unspecified site (HCC) (Primary Dx) Start: 05-02-2024 End: 05-02-2024 ambulatory Chair 23 Lanny Work Phone: Hematology/Oncology Comment on above: Malignant neoplasm o f urinary bladder, unspecified site (HCC) (Primary Dx) Start: 04-28-2024 End: 04-28-2024 Telephone encounter Selena Donnelly APRN.VALIDATION MANAGER Work Phone: Hematology/Oncology Comment on above: Lab Orders Start: 04-25-2024 End: 04-25-2024 Nursing evaluation of patient and report Lizbet Ryan Work Phone: Hematology/Oncology Comment on above: Urinary frequency Start: 04-25-2024 End: 04-25-2024 ambulatory Chair 23 [employer] Work Phone: Hematology/Oncology Comment on above: Malignant neoplasm o f urinary bladder, unspecified site (HCC) (Primary Dx) Start: 04-18-2024 End: 04-18-2024 Nursing evaluation of patient and report Lizbet Ryan Work Phone: Hematology/Oncology Comment on above: Malignant neoplasm o f urinary bladder, unspecified site (HCC); Urinary frequency Start: 04-18-2024 End: 04-21-2024 ambulatory Chair 23 [employer] Work Phone: Hematology/Oncology Comment on above: Malignant neoplasm o f urinary bladder, unspecified site (HCC) (Primary Dx) Start: 04-11-2024 End: 04-11-2024 Nursing evaluation of patient and report Lizbet Ryan Work Phone: Hematology/Oncology Comment on above: Malignant neoplasm o f urinary bladder, unspecified site (HCC) (Primary Dx); Urinary frequency Start: 04-11-2024 End: 04-11-2024 Office outpatient visit 25 minutes Selena Donnelly APRN.VALIDATION MANAGER Work Phone: Hematology/Oncology Comment on above: Malignant neoplasm o f urinary bladder, unspecified site (HCC) (Primary Dx) Start: 04-11-2024 End: 04-14-2024 ambulatory Chair 23 Lanny Work Phone: Hematology/Oncology Comment on above: Malignant neoplasm o f urinary bladder, unspecified site (HCC) (Primary Dx) Start: 04-04-2024 End: 04-04-2024 Nursing evaluation of patient and report Lizbet Ryan Work Phone: Hematology/Oncology Comment on above: High risk medication use (Primary Dx); Urinary frequency; Encounter for long-term (current) use of other medications Start: 04-04-2024 End: 04-04-2024 ambulatory Chair 23 Lanny Work Phone: Hematology/Oncology Comment on above: Malignant neoplasm o f urinary bladder, unspecified site (HCC) (Primary Dx) Start: 04-03-2024 End: 04-04-2024 Telephone encounter Selena Donnelly APRN.VALIDATION MANAGER Work Phone: Hematology/Oncology Comment on above: Lab Orders Start: 04-01-2024 End: 04-01-2024 Telephone encounter Liana Mcghee RN Work Phone: Hematology/Oncology Comment on above: Care Coordination (C 1D1 treatment follow up call) Start: 03-28-2024 End: 03-28-2024 Nursing evaluation of patient and report Lizbet Ryan Work Phone: Hematology/Oncology Comment on above: Urinary frequency (P rimary Dx); High risk medication use Start: 03-28-2024 End: 03-28-2024 Office outpatient visit 25 minutes Selena Donnelly APRN.VALIDATION MANAGER Work Phone: Hematology/Oncology Comment on above: 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) Start: 03-28-2024 End: 03-28-2024 ambulatory Chair 23 Lanny Work Phone: Hematology/Oncology Comment on above: Malignant neoplasm o f urinary bladder, unspecified site (HCC) (Primary Dx) Start: 03-25-2024 End: 03-25-2024 Telephone encounter Liana Mcghee RN Work Phone: Hematology/Oncology Comment on above: Care Coordination (P ositive home UTI test result) Start: 03-21-2024 End: 03-21-2024 ambulatory JENNIFER MEERA Facility:[facility] Start: 03-21-2024 End: 03-21-2024 Nursing evaluation of patient and report Liana Mcghee RN Work Phone: Hematology/Oncology Comment on above: 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) Start: 03-17-2024 End: 03-31-2024 Orders Only Bella Min [facility] Work Phone: HOSPITAL PHARMACY HB-3 Comment on above: Malignant neoplasm o f urinary bladder, unspecified site (HCC) (Primary Dx) Lab Orders Start: 03-14-2024 End: 03-14-2024 ambulatory JENNIFER M DOUGSachi Facility:[facility] Start: 03-14-2024 End: 03-14-2024 Office outpatient new 60 minutes Jacek Cano MD Work Phone: Hematology/Oncology Comment on above: 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) Start: 03-11-2024 End: 03-11-2024 Chart abstracting Jacek Cano MD Work Phone: Hematology/Oncology Start: 02-29-2024 End: 02-29-2024 ambulatory Eusebia GALINDO Facility:[facility] Start: 02-29-2024 End: 02-29-2024 Patient encounter procedure Eusebia GALINDO [facility] Start: 02-21-2024 End: 02-21-2024 ambulatory Eusebia Galindo [facility] Work Phone: Start: 02-21-2024 End: 02-21-2024 Departed Referred MD Eusebia Galindo Work Phone: [facility]-LAB Path [facility] Start: 02-21-2024 End: 02-21-2024 ambulatory Eusebia GALINDO Facility:[id number] Start: 02-18-2024 End: 02-18-2024 Lab Drop off Eusebia GALINDO [facility] Start: 02-18-2024 End: 02-18-2024 ambulatory Eusebia GALINDO Facility:[facility] Start: 02-18-2024 End: 02-18-2024 Patient encounter procedure REYNALDO GALINDO [facility] Start: 02-15-2024 End: 02-15-2024 ambulatory Eusebia GALINDO Facility:[facility] Start: 02-15-2024 End: 02-15-2024 Patient encounter procedure Eusebia GALINDO [facility] Start: 02-07-2024 End: 02-07-2024 ambulatory Eusebia Galindo Facility:[facility] Start: 02-07-2024 End: 02-07-2024 Departed Referred MD Eusebia Galindo Work Phone: [facility]-LAB Path Spec [facility] Start: 02-07-2024 End: 02-07-2024 ambulatory Eusebia GALINDO Facility:[id number] Start: 01-28-2024 End: 01-28-2024 ambulatory [facility] Start: 01-28-2024 End: 01-28-2024 Encounter for preprocedural cardiovascular examination [facility] Start: 01-28-2024 Encounter for preprocedural cardiovascular examination [facility] Start: 01-24-2024 Non-patient / Non-visit MD Jolly Galindo Work Phone: [facility] Work Phone: Start: 01-15-2024 End: 01-15-2024 ambulatory Eusebia GALINDO Facility:[facility] Start: 01-15-2024 End: 01-15-2024 Patient encounter procedure Eusebia GALINDO [facility] Start: 12-31-2023 End: 12-31-2023 ambulatory Hamida Sanz Facility:[facility] Start: 12-31-2023 End: 12-31-2023 Patient encounter procedure Hamida Sanz [facility] Start: 12-25-2023 End: 12-25-2023 ambulatory BRISA Renetta FULLER Facility:[facility] Start: 12-25-2023 End: 12-25-2023 Lab Drop off BRISA E JONNY [facility] Start: 12-25-2023 End: 12-25-2023 ambulatory BRISA E JONNY Facility:[facility] Start: 12-25-2023 End: 12-25-2023 Patient encounter procedure BRISA Renetta JONNY [facility] Start: 12-12-2023 ambulatory BRISADEVIN FULLER Facili ty:[facility] [place] Start: 11-29-2023 ambulatory BRISADEVIN FULLER Facility :[facility] Start: 08-08-2023 End: 08-08-2023 ambulatory [facility] Start: 07-25-2023 End: 07-25-2023 ambulatory Not Available Start: 07-12-2023 End: 07-12-2023 ambulatory Not Available Start: 02-06-2023 End: 02-06-2023 ambulatory [facility] Start: 07-28-2022 End: 07-28-2022 ambulatory CK NIXON Facility:[facility] Start: 07-26-2022 End: 07-26-2022 ambulatory CK NIXON Facility:[facility] Start: 06-09-2022 End: 06-10-[address] JENNIFER ESTES . Facility:[facility] Start: 05-22-2022 End: 05-23-[address] JENNIFER ESTES . Facility:[facility] Start: 05-14-2022 End: 06-02-[address] JENNIFER ESTES . Facility: Start: 05-01-2022 End: 05-13-[address] JENNIFER ESTES . Facility:[facility] Start: 01-05-2022 End: 01-06-[address] JENNIFER ESTES . Facility: Start: 12-28-2021 End: 12-29-2021 [facility] Start: 12-26-2021 End: 12-27-[address] ADÁN SHARIF Facility: Start: 12-21-2021 End: 12-22-[address] JENNIFER ESTES . Facility: Start: 12-20-2021 End: 12-21-[address] JENNIFER ESTES . Facility: Procedures Date Procedure Procedure Detail Performing Clinician Start: 06-03-2024 Cystoscopy Eusebia SARABIA Start: 05-02-2024 Urnls dip stick/tabl et rgnt auto w/o microscopy Jacek Cano MD Work Phone: Start: 04-25-2024 Urnls dip stick/tabl et rgnt auto w/o microscopy Ladonna De León PA-C Work Phone: Start: 04-18-2024 Urnls dip stick/tabl et rgnt auto w/o microscopy Ladonna BUCHANANC Work Phone: Start: 04-11-2024 Urnls dip stick/tabl et rgnt auto w/o microscopy Ladonna De León PA-C Work Phone: Start: 04-04-2024 Urnls dip stick/tabl et rgnt auto w/o microscopy Ladonna BUCHANANC Work Phone: Start: 03-28-2024 Urnls dip stick/tabl et rgnt auto w/o microscopy [facility] Provider Start: 02-07-2024 Transurethral resect ion of bladder neoplasm Eusebia GALINDO Start: 01-15-2024 Cystoscopy Eusebia ABY SARABIA Start: 06-30-2009 Colonoscopy BRISA SÁNCHEZ Cardiac catheterization JOSE FULLER Coronary angioplasty JOHNSON FULLER Repair of inguinal hernia TRUNG FULLER Comment on above: left Plan of Treatment Date Care Activity Detail Author Start: 05-02-2027 Diabetes Screening Diabetes Screenin g [facility] Start: 03-28-2027 Diabetes Screening Diabetes Screenin g [facility] Start: 12-13-2025 Urine microalbumin profile DTaP,Tdap,Td Vaccine (2 - Td or Tdap) [facility] Start: 08-22-2024 End: 08-22-2024 Follow-up encounter 08/22/2024 10:30 AM EDT Visit (SP) Office Hematology/Oncology [address] [place] [address] Jacek Cano MD [address] [place] [address] [place] [address] 3 month follow up lab Hematology/Oncology Comment on above: 3 month follow up la b Start: 08-22-2024 End: 08-22-2024 Patient encounter procedure 08/22/2024 10:15 AM EDT Office Visit [facility] [address] [place] [address] [place] [address] 3 month follow up lab [facility] Comment on above: 3 month follow up la b Start: 08-21-2024 End: 11-20-2024 CBC W Auto Differential panel - Blood COMPLETE BLOOD COUNT AND DIFFERENTIAL Lab Routine Malignant neoplasm of urinary bladder, unspecified site (HCC) Expected: 08/21/2024 (Approximate), Expires: 11/20/2024 [facility] Work Phone: Comment on above: Expected: 08/21/2024 (Approximate), Expires: 11/20/2024 Start: 08-21-2024 End: 11-20-2024 Cobalamin (Vitamin B12) [Mass/volume] in Serum or Plasma VITAMIN B12 Lab Routine Malignant neoplasm of urinary bladder, unspecified site (HCC) Expected: 08/21/2024 (Approximate), Expires: 11/20/2024 [facility] Comment on above: Expected: 08/21/2024 (Approximate), Expires: 11/20/2024 Start: 08-21-2024 End: 11-20-2024 Comprehensive metabolic 2000 panel - Serum or Plasma COMPREHENSIVE METABOLIC PANEL Lab Routine Malignant neoplasm of urinary bladder, unspecified site (HCC) Expected: 08/21/2024 (Approximate), Expires: 11/20/2024 [facility] Comment on above: Expected: 08/21/2024 (Approximate), Expires: 11/20/2024 Start: 08-21-2024 End: 11-20-2024 Ferritin [Mass/volume] in Serum or Plasma FERRITIN Lab Routine Malignant neoplasm of urinary bladder, unspecified site (HCC) Expected: 08/21/2024 (Approximate), Expires: 11/20/2024 [facility] Comment on above: Expected: 08/21/2024 (Approximate), Expires: 11/20/2024 Start: 08-21-2024 End: 11-20-2024 Folate [Mass/volume] in Serum or Plasma FOLATE, SERUM Lab Routine Malignant neoplasm of urinary bladder, unspecified site (HCC) Expected: 08/21/2024 (Approximate), Expires: 11/20/2024 [facility] Comment on above: Expected: 08/21/2024 (Approximate), Expires: 11/20/2024 Start: 08-21-2024 End: 11-20-2024 Iron and Iron binding capacity panel - Serum or Plasma IRON AND TIBC Lab Routine Malignant neoplasm of urinary bladder, unspecified site (HCC) Expected: 08/21/2024 (Approximate), Expires: 11/20/2024 [facility] Comment on above: Expected: 08/21/2024 (Approximate), Expires: 11/20/2024 Start: 05-23-2024 End: 05-23-2024 Follow-up encounter 05/23/2024 2:00 PM EST Visit (SP) Office Hematology/Oncology [address] [place] [address] [place] [address] Jacek Cano MD [address] [place] [address] 3 week follow up lab Hematology/Oncology Comment on above: 3 week follow up lab Start: 05-23-2024 End: 05-23-2024 Patient encounter procedure 05/23/2024 1:45 PM EST Office Visit [facility] [address] [place] [address] 3 week follow up lab [facility] Comment on above: 3 week follow up lab Start: 05-14-2024 Advance Directive Discussion Advance Directive Discussion [facility] Start: 05-02-2024 End: 05-02-2024 Nursing evaluation of patient and report 05/02/2024 9:15 AM EST Nurse Visit Hematology/Oncology [address] [place] [address] Lizbet Ryan Nurse Kyle [address] [place] [address] Hematology/Oncology Comment on above: UA Start: 05-02-2024 End: 05-02-2024 ambulatory 05/02/2024 8:30 AM EST [facility] Hematology/Oncology [address] [place] [address] [facility] Hematology/Oncology Comment on above: [facility] Start: 05-02-2024 End: 05-02-2024 Follow-up encounter 05/02/2024 8:30 AM EST Visit (SP) Office Hematology/Oncology [address] [place] [address] Selena Donnelly APRN.VALIDATION MANAGER [address] [place] [address] follow up prior to tx Hematology/Oncology Comment on above: follow up prior to t x Start: 05-02-2024 End: 05-02-2024 Patient encounter procedure 05/02/2024 8:15 AM EST Office Visit [facility] [address] [place] [address] follow up prior to tx [facility] Comment on above: follow up prior to t x Start: 04-28-2024 End: 07-28-2024 CBC W Auto Differential panel - Blood COMPLETE BLOOD COUNT AND DIFFERENTIAL Lab Routine Malignant neoplasm of urinary bladder, unspecified site (HCC) Expected: 04/28/2024, Expires: 07/28/2024 [facility] Work Phone: Comment on above: Expected: 04/28/2024 , Expires: 07/28/2024 Start: 04-28-2024 End: 07-28-2024 Comprehensive metabolic 2000 panel - Serum or Plasma COMPREHENSIVE METABOLIC PANEL Lab Routine Malignant neoplasm of urinary bladder, unspecified site (HCC) Expected: 04/28/2024, Expires: 07/28/2024 [facility] Comment on above: Expected: 04/28/2024 , Expires: 07/28/2024 Start: 04-25-2024 End: 04-25-2024 Nursing evaluation of patient and report 04/25/2024 9:00 AM EST Nurse Visit [facility]ology[facility]Oncology [address] [facility] [place] [address] Lizbet Ryan Nurse Kyle [address] [place] [address] Hematology/Oncology Comment on above: UA Start: 04-25-2024 End: 04-25-2024 ambulatory 04/25/2024 8:30 AM EST Infusion Center Hematology/Oncology [address] [place] [address] [facility] Hematology/Oncology Comment on above: [facility] Start: 04-18-2024 End: 04-18-2024 Nursing evaluation of patient and report 04/18/2024 9:00 AM EST Nurse Visit Hematology/Oncology [address] [place] [address] Lizbet Ryan Nurse Kyle [address] [place] [address] Hematology/Oncology Comment on above: UA Start: 04-18-2024 End: 04-18-2024 ambulatory 04/18/2024 8:30 AM EST Infusion Center Hematology/Oncology [address] [place] [address] [facility]On[facility] Comment on above: [facility] Start: 04-11-2024 End: 04-11-2024 Nursing evaluation of patient and report 04/11/2024 9:00 AM EST Nurse Visit Hematology/Oncology [address] [place] [address] Lizbet Ryan Nurse Kyle [address] [place] [address] Hematology/Oncology Comment on above: UA Start: 04-11-2024 End: 04-11-2024 ambulatory 04/11/2024 8:30 AM EST Infusion Center Hematology/Oncology [address] [place] [address] [facility] Hematology/Oncology Comment on above: BCG Start: 04-11-2024 End: 04-11-2024 Follow-up encounter 04/11/2024 8:30 AM EST Visit (SP) Office Hematology/Oncology [address] [place] [address] Selena Donnelly APRN.VALIDATION MANAGER [address] [place] [address] follow up w/ Selena prior to tx same day Hematology/Oncology Comment on above: follow up w/ Selena prior to tx same day Start: 04-11-2024 End: 04-11-2024 Patient encounter procedure 04/11/2024 8:15 AM EST Office Visit [facility] [address] [place] [address] follow up w/ Selena prior to tx same day [facility] Comment on above: follow up w/ Selena prior to tx same day Start: 04-04-2024 End: 04-04-2024 Nursing evaluation of patient and report 04/04/2024 9:00 AM EST Nurse Visit Hematology/Oncology [address] [place] [address] Lizbet Ryan Nurse Kyle [address] [place] [address] Hematology/Oncology Comment on above: UA Start: 04-04-2024 End: 04-04-2024 ambulatory 04/04/2024 8:30 AM EST [facility] Hematology/Oncology [address] [facility] [place] [address] [facility] Hematology/Oncology Comment on above: BCG X6 Start: 03-28-2024 End: 06-27-2024 CBC W Auto Differential panel - Blood COMPLETE BLOOD COUNT AND DIFFERENTIAL Lab Routine 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) Urinary frequency Expected: 03/28/2024, Expires: 06/27/2024 [facility] Work Phone: Comment on above: Expected: 03/28/2024 , Expires: 06/27/2024 Start: 03-28-2024 End: 06-27-2024 Comprehensive metabolic 2000 panel - Serum or Plasma COMPREHENSIVE METABOLIC PANEL Lab Routine 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) Urinary frequency Expected: 03/28/2024, Expires: 06/27/2024 [facility] Comment on above: Expected: 03/28/2024 , Expires: 06/27/2024 Start: 03-28-2024 End: 06-27-2024 UA DIP, URINE (POC) UA DIP, URINE (POC) Lab Routine 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) Urinary frequency Expected: 03/28/2024, Expires: 06/27/2024 [facility] Comment on above: Expected: 03/28/2024 , Expires: 06/27/2024 Start: 03-28-2024 End: 03-28-2024 ambulatory Hematology/Oncology Comment on above: [facility] X6 Start: 03-28-2024 End: 03-28-2024 Nursing evaluation of patient and report Hematology/Oncology Comment on above: POC UA UA Start: 03-28-2024 End: 03-28-2024 Patient encounter procedure 03/28/2024 8:15 AM EST Office Visit [facility] [address] [place] [address] 2 week follow up [facility] Comment on above: 2 week follow up Start: 03-21-2024 End: 03-21-2024 Nursing evaluation of patient and report 03/21/2024 9:00 AM EST Nurse Visit Hematology/Oncology [address] [place] [address] Liana Mcghee, RN [address] [place] [address] [facility]On[facility] Comment on above: [facility] Start: 03-14-2024 End: 03-14-2024 FQHC visit new patient 03/14/2024 11:00 AM EDT Visit (SP) Office Hematology/Oncology [address] [place] [address] Jacek Cano MD [address] [place] [address] New Patient DX Bladder CA. Images requested. Hematology/Oncology Comment on above: New Patient DX Bladd er CA. Images requested. Start: 01-13-2024 Covid-19 Vaccine ( season) Covid-19 Vaccine ( season) [facility] Start: 01-13-2024 Covid-19 Vaccine ( season) Covid-19 Vaccine ( season) [facility] Start: 01-13-2024 Influenza vaccination Influenza Vacc ine (#1) [facility] Start: 05-14-2023 Advance Directive Discussion Advance Directive Discussion [facility] Start: 11-13-2017 Pneumococcal Vaccine : 65+ (2 of 2 - PCV) Pneumococcal Vaccine: 65+ (2 of 2 - PCV) [facility] Start: 2009 RSV Vaccine (1 - 1-d ose 75+ series) RSV Vaccine (1 - 1-dose 75+ series) [facility] Start: 1984 Shingrix Vaccine (1 of 2) Shingrix Vaccine (1 of 2) [facility] Start: 09-26-1979 Diabetes Screening Diabetes Screenin g [facility] Start: 1953 Urine microalbumin profile DTaP,Tdap,Td Vaccine (1 - Tdap) [facility] Start: 1952 Anxiety Screening Anxiety Screening [facility] Start: 1952 Depression Screening Depression Scre ening [facility] UA DIP OB, URINE (POC) UA DIP OB , URINE (POC) Lab Routine Malignant neoplasm of urinary bladder, unspecified site (HCC) 1 Occurrences starting 04/04/2024 [facility] Work Phone: Comment on above: 1 Occurrences starti ng 04/04/2024 UA DIP OB, URINE (POC) UA DIP OB , URINE (POC) Lab Routine Malignant neoplasm of urinary bladder, unspecified site (HCC) 1 Occurrences starting 04/25/2024 [facility] Work Phone: Comment on above: 1 Occurrences starti ng 04/25/2024 Immunizations Immunization Date Immunization Notes Care Provider Fa sushil 03-26-2023 influenza virus vaccine, unspecified formulation BRISA FULLER [facility] 09-16-2021 SARS-CoV-2 mRNA (afatxrpefjz-rsuj-kqktq se) vaccine BRISA JONNY [facility] Comment on above: Result Comment: 2023: [id number] 02-24-2021 SARS-CoV-2 (COVID-19 ) mRNA BNT-162d0 vax BRISA JONNY [facility] Comment on above: Result Comment: 2023: [id number] 02-18-2021 influenza virus vaccine, unspecified formulation BRISAMARY ANN FULLER [facility] 06-30-2020 SARS-CoV-2 (COVID-19 ) mRNA BNT-162b2 vax BRISA JONNY [facility] 06-07-2020 SARS-CoV-2 (COVID-19 ) mRNA BNT-162b2 vax BRISA JONNY [facility] 04-05-2020 influenza virus vaccine, unspecified formulation BRISA JONNY [facility] 03-07-2019 influenza virus vaccine, unspecified formulation BRISA JONNY [facility] 04-13-2017 influenza virus vaccine, unspecified formulation BRISA JONNY [facility] 02-12-2017 influenza virus vaccine, unspecified formulation BRISA JONNY [facility] 11-13-2016 pneumococcal polysaccharide vaccine, 23 valent BRISA JONNY [facility] 02-12-2013 influenza virus vaccine, unspecified formulation BRISA JONNY [facility] 03-11-2003 pneumococcal polysaccharide vaccine, 23 valent BRISA JONNY [facility] NEGATED: Highlighted row has not occurred!02-21-2019 influenza virus vaccine, unspecified formulation BRISA JONNY [facility] Comment on above: Result Comment: Will obtain from primary care physician Payers Date Payer Category Payer Self-pay 2023 Private Health Insurance [facility] IN[facility]MNITY [id number] 2023-Present [phone] [address] [place] [address] Indemnity [id number] 1999 Medicare [id number] 1959 Medicare [id number] 1959 Private Health Insurance [id number] 1934 Unknown [id number] 2.16.840.1.949445.3.579 .2.647 1934 Unknown [id number] 2.16.840.1.047271.3.579 .2.593 1934 Unknown [id number] 2.16.840.1.555182.3.579 .2.593 1934 Unknown [id number] 2.16.840.1.005039.3.579 .2.593 1934 Unknown [id number] 2.16.840.1.880063.3.579 .2.593 1934 Unknown [id number] 2.16.840.1.344818.3.579 .2.593 1934 Unknown [id number] 2.16.840.1.667180.3.579 .2.593 1934 Unknown [id number] 2..840.1.945296.3.579 .2.593 1934 Unknown [id number] 2.16.840.1.277580.3.579 .2.593 1934 Unknown [id number] 2.16.840.1.036739.3.579 .2.593 1934 Unknown [id number] 2.16.840.1.462857.3.579 .2.593 1934 Unknown [id number] 2.16.840.1.304652.3.579 .2.1259 1934 Unknown [id number] 2.16.840.1.173590.3.579 .2.1259 1934 Unknown [id number] 2.16.840.1.406939.3.579 .2.727 1934 Unknown [id number] 2.16.840.1.039500.3.579 .2.727 1934 Unknown [id number] 2.16.840.1.283912.3.579 .2.727 1934 Unknown [id number] 2.16.840.1.917112.3.579 .2. 1934 Unknown [id number] 2.16.840.1.048783.3.579 .2. 1934 Unknown [id number] 2.16.840.1.158866.3.579 .2. 1934 Unknown [id number] 2.16.840.1.432206.3.579 .2. 1934 Unknown [id number] 2.16.840.1.498849.3.579 .2. 1934 Unknown [id number] 2.16.840.1.903208.3.579 .2 1934 Unknown [id number] 2.16.840.1.853659.3.579 .2 1934 Unknown [id number] 2.16.840.1.720898.3.579 .2 1934 Unknown [id number] 2.16.840.1.877408.3.579 .2 1934 Unknown [id number] 2.16.840.1.028409.3.579 .2 1934 Unknown [id number] 2.16.840.1.412215.3.579 .2 1934 Unknown [id number] 2.16.840.1.789233.3.579 .2 1934 Unknown [id number] 2.16.840.1.442553.3.579 .2.72 Unknown [facility] [id number] Unknown [id number] 2.16.840.1.735082.3.579 .2.531 Unknown [id number] 2.16.840.1.546837.3.579 .2.531 Social History Date Type Detail Facility Start: 12-25-2023 End: 06-03-2024 Tobacco smoking status Never smoked tobacco (finding) [facility] Tobacco smoking status Never [facility] Start: 03-14-2024 End: 03-21-2024 Sex Assigned At Male [facility] Start: 1935 Sex Assigned At Male F [facility] Tobacco smoking stat us NHIS Tobacco smoking consumption unknown [facility] Start: 03-11-2024 Alcoholic beverage intake Ex-drinker (finding) [facility] Start: 03-11-2024 Alcohol Comment denies alcohol use 01/15/2019 [facility] Start: 1934 Sex assigned at Not on file C [facility] Start: 03-14-2024 End: 03-21-2024 History of Social function [facility] Functional Status Date Assessment Result Facility 06-03-2024 Functional Status N/A [facility] 05-22-2024 Functional Status N/A [facility] 02-29-2024 Functional Status N/A [facility] 02-15-2024 Functional Status N/A [facility] 01-15-2024 Functional Status N/A [facility] 12-25-2023 Functional Status N/A [facility] Clinical Notes 12-30-2021 to 06-03-2024 LaboratoryVenJacek vincent MD - 05/23/2024 2:00 PM CAROLINADeerrol-Bhargavi Whalen MA - 05/23/2024 1:27 PM ESTPatient InstructionsTelephone Elizabeth - Liana Mcghee RN - 05/20/2024 9:01 AM EST Note Date & Type Note Facility 06-03-2024 Hospital Discharg e instructions Patient Education 06/03/2024 16:11:00 Bladder Cancer Bladder Cancer Bladder cancer is [...] cells. Follow these instructions at home: Take xftc-ghw-rbgpcxj and prescription medicines only as told by [...] is important. Where to find more information [employer] (ACS): cancer.org National Cancer [place] (NCI): cancer.gov Contact a health care provider [...] provider. Document Revised: 04/10/2022 Document Reviewed: 04/10/2022 [employer] Patient Education 2023 BDA. Follow Up Care 05/22/2024 10:12:35 With:MATEO DICKEusebia, URL Address: [facility] [address] [place] [address]- When:Within 3 Month(s) Comments:w/Cysto/FISH Cytol [facility] Lanny 06-03-2024 Note Patient Education Oncology Bladder Cancer Bladder [...] you more likely to develop this condition: ??? Smoking. ??? Working where there are risks (occupational exposures), such as working with rubber, leather, clothing fabric, dyes, chemicals, or paint. ??? Being 54 years of age or older. ??? Being male. ??? Having long-term bladder inflammation. ??? Having a history of cancer. This includes: ? A family history of bladder cancer. ? Having had bladder cancer before. ? Having had certain treatments for cancer before, such as: ? Medicines to kill cancer cells (chemotherapy). ? Strong X-ray beams or high-energy capsules to kill cancer cells and shrink tumors (radiation therapy). ??? Having been exposed to arsenic. This is a poisonous substance. What are the signs or symptoms? Early symptoms of this condition include: ??? Blood in your urine. ??? Pain when urinating. ??? Infections of your urinary system (urinary tract infections or UTIs) that happen often. ??? Having to urinate sooner or more often than normal. Late symptoms of this condition include: ??? Not being able to urinate. ??? Pain on one side of your lower back. ??? Loss of appetite. ??? Weight loss. ??? Tiredness (fatigue). ??? Swelling in your feet. ??? Bone pain. How is this diagnosed? This condition is diagnosed based on: ??? Your medical history. ??? A physical exam. ??? Lab tests, such as urine tests. ??? Imaging tests. ??? Your symptoms. You may also have other tests or procedures, such as: ??? A cystoscopy. This involves putting a narrow tube into your urethra. The urethra is the organ that carries urine from your bladder to the outside of your body. This procedure is done to view the lining of your bladder for tumors. ??? A biopsy. This involves removing a tissue sample to look at under a microscope to check for cancer. Blood tests or imaging tests may be needed. These show how far into the bladder wall cancer has grown, and if cancer has spread to any other parts of your body. Tests may include: ??? CT scan. ??? MRI. ??? Bone scan. ??? X-ray. How is this treated? Your health care provider may recommend one or more types of treatment based on the stage of your cancer. The most common treatments are: ??? Surgery to remove the cancer. Types of surgeries include: ? Removing a tumor on the inside wall of the bladder (transurethral resection). ? Removing the bladder (cystectomy). ??? Radiation therapy. This is often combined with chemotherapy. ??? Chemotherapy. ??? Immunotherapy. This uses medicines to help your body's disease-fighting system (immune system) destroy cancer cells. Follow these instructions at home: ??? Take ufwk-evx-ymycpfu and prescription medicines only as told by your health care provider. ??? If you were prescribed an antibiotic medicine, take it as told by your health care provider. Do not stop using the antibiotic even if you start to feel better. ??? Eat a healthy diet. Some treatments might affect your appetite. ??? Do not use any products that contain nicotine or tobacco. These products include cigarettes, chewing tobacco, and vaping devices, such as e-cigarettes. If you need help quitting, ask your health care provider. ??? Consider joining a support group. This may help you learn to deal with the stress of having bladder cancer. ??? Tell your cancer care team if you develop side effects. Your team may be able to recommend ways to get relief. ??? Keep all follow-up visits. This is important. Where to find more information ??? [place] [employer] (ACS): cancer.org ??? [employer] [place] (NCI): cancer.gov Contact a health care provider if: ??? You have symptoms of a UTI. These include: ? Fever. ? Chills. ? Weakness. ? Muscle aches. ? Pain in your abdomen. ? Urge to urinate that is stronger and happens more often than normal. ? Burning in the bladder or urethra when you urinate. Get help right away if: ??? There is blood in your urine. ??? You cannot urinate. ??? You have severe pain or other symptoms that do not go away. Summary ??? Bladder cancer is a condition where tumors grow in the bladder. ??? Diagnosis is based on your medical history, a physical exam, lab tests, imaging tests, and your symptoms. ??? Your health care provider may recommend one or more types of treatment based on the stage of your cancer. ??? Consider joining a support group. This may help you learn to deal with the stress of having bladder cancer. This information is n (more content not included)... [facility] 06-03-2024 Evaluation + Plan note Diagnostic Tests PendingUroVysion Fish and Urine Cyto ([facility]) 06/03/24 Future Scheduled TestsUrine Culture 12/31/23 [facility] 05-23[facility]2024 History of Presen t illness Narrative Images from the original note were not included. PATIENT NAME: Kingsley Jennings CLINIC NO.: [id number] ATTENDING PHYSICIAN: Jacek Cano MD DATE OF SERVICE: 05/23/[address] Eusebia Galindo [address] [place] [id number] thank you for referring Kingsley Jennings for an opinion regarding bladder cancer. Some of the elements of this note have been copied from Selena Donnelly previous progress note dated 05/02/24 . All the information has been reviewed carefully. 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 Interval History: Patient here for consideration of week 6 of BCG. Patient denies any urinary symptoms. UA in the office today was negative. We will proceed with BCG. Patient's son is here with him today reviewed precautions and education for BCG. Overall patient is feeling well. No signs of infection. Will continue to monitor through his BCG treatments. No nausea or vomiting. Staying hydrated. Eating good. Energy level is good. CT abdomen pelvis noncontrast showed bladder wall thickening in February 2024 and a right bladder wall mass in December 2023. C/o back pain and insomnia. Underwent transurethral resection of bladder tumor measuring approx 4cm on 02/07/24. Underwent transurethral resection of bladder tumor measuring approx 3cm and deep bladder biopsies on 02/21/24. Urologist recommended intravesical BCG treatments. 05/23/24: - Completed 6 weekly intravesical BCG treatments on 05/02/24. - Doing well - C/o back pain - No major complaints - Scheduled for cystoscopy on 06/03/24 - Tolerated well. Current Outpatient Medications Medication Sig ciprofloxacin HCl (CIPRO) 250 mg tablet Take 1 tablet by mouth two times a day for 5 days. melatonin 10 mg tab Take 1 tablet by mouth daily at bedtime. polyethylene glycol 3350 (PURELAX) 17 gram packet Take 17 g by mouth once daily. Dissolve dose in 4 - 8 ounces of liquid and take as directed. psyllium (METAMUCIL FIBER SINGLES) 3.4 gram packet Take 1 Packet by mouth once daily. Docosahexanoic Acid-Eicosapent (FISH OIL) 120-180 mg capsule Take 2 g by mouth as needed (pt states he takes this off and on). pyridoxine, vitamin B6, (VITAMIN B-6) 25 mg tablet Take 25 mg by mouth once daily as needed (pt states he takes this off and on). mecobalamin (B12 ACTIVE ORAL) Take 1 tablet by mouth once daily as needed (pt states he takes this off and on). Vitamin E, dl, acetate, (VITAMIN E) 134 mg (200 unit) Capsule Take 200 Units by mouth once daily as needed (pt states he takes this off and on). Tlpzdlufubdlc-Trazdjja-Gmtgqy (MULTIVITAMIN 50 PLUS) tab Take 1 tablet by mouth once daily as needed (pt states he takes this off and on). magnesium chloride 64 mg magnesium tab Take 1 tablet by mouth once daily as needed (pt states he takes this off and on). levothyroxine (SYNTHROID) 137 mcg tablet Take by mouth. aspirin, enteric coated (ASPIRIN, ENTERIC COATED) 81 mg EC tablet in the morning. amLODIPine (NORVASC) 2.5 mg tablet Take 2.5 mg by mouth. carvedilol (COREG) 3.125 mg tablet Take 6.25 mg by mouth. Cholecalciferol, Vitamin D3, 50 mcg (2,000 unit) cap Take 2,000 Int'l Units by mouth. diclofenac, EC, (VOLTAREN) 50 mg EC tablet Take 50 mg by mouth. isosorbide mononitrate ER (IMDUR) 30 mg 24 hr tablet Take 15 mg by mouth once daily. mupirocin (BACTROBAN) 2 % ointment rosuvastatin (CRESTOR) 20 mg tablet Take 20 mg by mouth. tamsulosin (FLOMAX) 0.4 mg Take 0.8 mg by mouth once daily. triamcinolone acetonide (KENALOG) 0.1 % cream No current facility-administered medications for this visit. 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 Social History Substance Use Topics Alcohol use: Not Currently Comment: denies alcohol use 01/15/2019 REVIEW OF SYSTEMS GENERAL: No weight loss, malaise or fevers. No night sweats. HEENT: Negative for headaches, No changes in hearing or vision, no nose bleeds or other nasal problems. RESPIRATORY: Negative for cough, wheezing and shortness of breath CARDIOVASCULAR: Negative for chest pain, leg swelling and palpitations GI: Negative for abdominal discomfort, blood in stools or black stools and change in bowel habits : Negative for dysuria, frequency and incontinence MUSCULOSKELETAL: Negative for joint pain or swelling, back pain, and muscle pain. SKIN: Negative for lesions, rash, and itching. HEMATOLOGY/LYMPHOLOGY Negative for prolonged bleeding, bruising easily, and swollen nodes. NEURO: Negative for numbness or tingling of hands/feet. No weakness. PHYSICAL EXAMINATION: There were no vitals taken for this visit. There were no vitals taken for this visit. No data found for this vital: Wt General appearance:ECOG PERFORMANCE STATUS: 1- Restricted in physically strenuous activity. Carries out light duty. Patient in NAD. Skin: Skin color, texture, turgor normal. No rashes or lesions. Eyes: Anicteric sclera. Pupils are equally round and reactive to light. Extraocular movements are intact. Breast: No palpable breast masses. No nipple change or discharge. Lymph Nodes: No cervical, supraclavicular, axillary or inguinal adenopathy. Oropharynx: Lips, mucosa, and tongue normal. Back: No pain to percussion. Negative SLR test Lungs clear to auscultation, No wheezing or rhonchi Heart: RRR without murmur, gallop, or rubs. Abdomen soft, non-tender. No masses, organomegaly Extremities: No deformities. No edema Neuro: Gait and speech normal. Reflexes normal and symmetric. Muscular strength intact. Sensation grossly intact. Rectal: Deferred : Deferred LABS: Glucose (mg/dL) Date Value 05/02/2024 86 Potassium (mmol/L) Date Value 05/02/2024 4.5 Sodium (mmol/L) Date Value 05/02/2024 139 Chloride (mmol/L) Date Value 05/02/2024 106 CO2 (mmol/L) Date Value 05/02/2024 26 Creatinine (mg/dL) Date Value 05/02/2024 0.99 BUN (mg/dL) Date Value 05/02/2024 18 Anion Gap (mmol/L) Date Value 05/02/2024 7 Calcium, Total (mg/dL) Date Value 05/02/2024 10.2 Protein, Total (g/dL) Date Value 05/02/2024 5.8 Albumin (g/dL) Date Value 05/02/2024 4.0 Bilirubin, Total (mg/dL) Date Value 05/02/2024 0.6 Alkaline Phosphatase (U/L) Date Value 05/02/2024 68 AST (U/L) Date Value 05/02/2024 24 ALT (U/L) Date Value 05/02/2024 27 WBC Date Value Ref Range Status 05/02/2024 4.87 3.70 - 11.00 k/uL Final RBC Date Value Ref Range Status 05/02/2024 3.96 (L) 4.20 - 6.00 m/uL Final Hemoglobin Date Value Ref Range Status 05/02/2024 12.8 (L) 13.0 - 17.0 g/dL Final Hematocrit Date Value Ref Range Status 05/02/2024 37.9 (L) 39.0 - 51.0 % Final MCV Date Value Ref Range Status 05/02/2024 95.7 80.0 - 100.0 fL Final MCH Date Value Ref Range Status 05/02/2024 32.3 26.0 - 34.0 pg Final MCHC Date Value Ref Range Status 05/02/2024 33.8 30.5 - 36.0 g/dL Final RDW-CV Date Value Ref Range Status 05/02/2024 13.5 11.5 - 15.0 % Final Platelet Count Date Value Ref Range Status 05/02/2024 148 (L) 150 - 400 k/uL Final MPV Date Value Ref Range Status 05/02/2024 9.6 9.0 - 12.7 fL Final Abs Neut Date Value Ref Range Status 05/02/2024 2.88 1.45 - 7.50 k/uL Final Lymphocytes % Date Value Ref Range Status 05/02/2024 22.2 % Final Abs Lymph Date Value Ref Range Status 05/02/2024 1.08 1.00 - 4.00 k/uL Final Monocytes % Date Value Ref Range Status 05/02/2024 13.8 % Final Abs Waldo Date Value Ref Range Status 05/02/2024 0.67 <0.87 k/uL Final Abs Eosin Date Value Ref Range Status 05/02/2024 0.19 <0.46 k/uL Final Basophils % Date Value Ref Range Status 05/02/2024 0.8 % Final Abs Baso Date Value Ref Range Status 05/02/2024 0.04 <0.11 k/uL Final PATH: IMAGING: ASSESSMENT AND PLAN: Kingsley Jennings is a 88 year old year old male referred to us for high risk non muscle invasive bladder cancer. H/o CAD, HTN, DLD. He has high risk nonmuscle invasive bladder cancer. - Urologist recommended intravesical BCG treatments. CT abdomen pelvis negative for distant metastasis. PLAN: - Completed 6 weekly intravesical BCG treatments on 05/02/24. - Scheduled for cystoscopy on 06/03/24 - Will consider doing maintenance intravesical BCG if needed depending on urology recs. - Recent blood work is unremarkable. - Monitor the mild pelvic pain for now. F/u with urology. - All his questions answered in detail - Follow-up in 3 months. Jacek Cano MD [facility]. Hematology and Oncology Services Provided at: [place], [place] CC: Patient has been constipated the last few days, he has taken Purelax but that doesn't seem to help. Bhargavi Montoya MA documented in this encounter [facility] 05-23-2024 Note HNO ID: [id number] Author: JACEK CANO MD Service: ? Author Type: Physician Type: Progress Notes Filed: 05/23/2024 14:01 Note Text: PATIENT NAME: Kingsley Jennings [facility] NO.: [id number] ATTENDING PHYSICIAN: Jacek Cano MD DATE OF SERVICE: 05/23/[address] Eusebia Galindo [address] [place] [id number] thank you for referring Kingsley Jennings for an opinion regarding bladder cancer. Some of the elements of this note have been copied from Selena Donnlely previous progress note dated 05/02/24 . All the information has been reviewed carefully. 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 Interval History: Patient here for consideration of week 6 of BCG. Patient denies any urinary symptoms. UA in the office today was negative. We will proceed with BCG. Patient's son is here with him today reviewed precautions and education for BCG. Overall patient is feeling well. No signs of infection. Will continue to monitor through his BCG treatments. No nausea or vomiting. Staying hydrated. Eating good. Energy level is good. CT abdomen pelvis noncontrast showed bladder wall thickening in February 2024 and a right bladder wall mass in December 2023. C/o back pain and insomnia. Underwent transurethral resection of bladder tumor measuring approx 4cm on 02/07/24. Underwent transurethral resection of bladder tumor measuring approx 3cm and deep bladder biopsies on 02/21/24. Urologist recommended intravesical BCG treatments. 05/23/24: - Completed 6 weekly intravesical BCG treatments on 05/02/24. - Doing well - C/o back pain - No major complaints - Scheduled for cystoscopy on 06/03/24 - Tolerated well. Current Outpatient Medications Medication Sig ciprofloxacin HCl (CIPRO) 250 mg tablet Take 1 tablet by mouth two times a day for 5 days. melatonin 10 mg tab Take 1 tablet by mouth daily at bedtime. polyethylene glycol 3350 (PURELAX) 17 gram packet Take 17 g by mouth once daily. Dissolve dose in 4 - 8 ounces of liquid and take as directed. psyllium (METAMUCIL FIBER SINGLES) 3.4 gram packet Take 1 Packet by mouth once daily. Docosahexanoic Acid-Eicosapent (FISH OIL) 120-180 mg capsule Take 2 g by mouth as needed (pt states he takes this off and on). pyridoxine, vitamin B6, (VITAMIN B-6) 25 mg tablet Take 25 mg by mouth once daily as needed (pt states he takes this off and on). mecobalamin (B12 ACTIVE ORAL) Take 1 tablet by mouth once daily as needed (pt states he takes this off and on). Vitamin E, dl, acetate, (VITAMIN E) 134 mg (200 unit) Capsule Take 200 Units by mouth once daily as needed (pt states he takes this off and on). Hguovxbutrtbw-Ygkudvqt-Besuhj (MULTIVITAMIN 50 PLUS) tab Take 1 tablet by mouth once daily as needed (pt states he takes this off and on). magnesium chloride 64 mg magnesium tab Take 1 tablet by mouth once daily as needed (pt states he takes this off and on). levothyroxine (SYNTHROID) 137 mcg tablet Take by mouth. aspirin, enteric coated (ASPIRIN, ENTERIC COATED) 81 mg EC tablet in the morning. amLODIPine (NORVASC) 2.5 mg tablet Take 2.5 mg by mouth. carvedilol (COREG) 3.125 mg tablet Take 6.25 mg by mouth. Cholecalciferol, Vitamin D3, 50 mcg (2,000 unit) cap Take 2,000 Int'l Units by mouth. diclofenac, EC, (VOLTAREN) 50 mg EC tablet Take 50 mg by mouth. isosorbide mononitrate ER (IMDUR) 30 mg 24 hr tablet Take 15 mg by mouth once daily. mupirocin (BACTROBAN) 2 % ointment rosuvastatin (CRESTOR) 20 mg tablet Take 20 mg by mouth. tamsulosin (FLOMAX) 0.4 mg Take 0.8 mg by mouth once daily. triamcinolone acetonide (KENALOG) 0.1 % cream No current facility-administered medications for this visit. 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 Social History Substance Use Topics Alcohol use: Not Currently Comment: denies alcohol use 01/15/2019 REVIEW OF SYSTEMS GENERAL: No weight loss, malaise or fevers. No night sweats. HEENT: Negative for headaches, No changes in hearing or vision, no nose bleeds or other nasal problems. RESPIRATORY: Negative for cough, wheezing and shortness of breath CARDIOVAS (more content not included)... [facility] 05-23-2024 Instructions Jacek Cano MD - 05/23/2024 1:45 PM EST F/u in 3 months documented in this encounter [facility] 05-23-2024 Note HNO ID: [id number] Author: BHARGAVI MONTOYA MA Service: ? Author Type: Boilermaker Type: Progress Notes Filed: 05/23/2024 14:01 Note Text: Patient has been constipated the last few days, he has taken Purelax but that doesn't seem to help. Bhargavi Montoya MA [facility] 05-22-2024 Hospital Discharg e instructions Patient Education 05/22/2024 15:15:42 Abdominal Pain, Adult Abdominal Pain, Adult Pain in the abdomen (abdominal pain) can be caused by many things. In most cases, it gets better with no treatment or by being treated at home. But in some cases, it can be serious. Your health care provider will ask questions about your medical history and do a physical exam to try to figure out what is causing your pain. Follow these instructions at home: Medicines Take yrwh-grc-nwirwmo and prescription medicines only as told by your provider. Do not take medicines that help you poop (laxatives) unless told by your provider. General instructions Watch your condition for any changes. Drink enough fluid to keep your pee (urine) pale yellow. Contact a health care provider if: Your pain changes, gets worse, or lasts longer than expected. You have severe cramping or bloating in your abdomen, or you vomit. Your pain gets worse with meals, after eating, or with certain foods. You are constipated or have diarrhea for more than 2 3 days. You are not hungry, or you lose weight without trying. You have signs of dehydration. These may include: ?Dark pee, very little pee, or no pee. ?Cracked lips or dry mouth. ?Sleepiness or weakness. You have pain when you pee (urinate) or poop. Your abdominal pain wakes you up at night. You have blood in your pee. You have a fever. Get help right away if: You cannot stop vomiting. Your pain is only in one part of the abdomen. Pain on the right side could be caused by appendicitis. You have bloody or black poop (stool), or poop that looks like tar. You have trouble breathing. You have chest pain. These symptoms may be an emergency. Get help right away. Call 911. Do not wait to see if the symptoms will go away. Do not drive yourself to the hospital. This information is not intended to replace advice given to you by your health care provider. Make sure you discuss any questions you have with your health care provider. Document Revised: 02/14/2023 Document Reviewed: 02/14/2023 Elsevier Patient Education 2023 BDA. Follow Up Care 05/21/2024 10:13:07 With:Keep previously scheduled follow-up appointment. Address: When: Unknown [facility] 05-22-2024 Note Patient Education Gastroenterology Abdominal Pain, Adult Pain in the abdomen (abdominal pain) can be caused by many things. In most cases, it gets better with no treatment or by being treated at home. But in some cases, it can be serious. Your health care provider will ask questions about your medical history and do a physical exam to try to figure out what is causing your pain. Follow these instructions at home: Medicines ??? Take wysx-sjo-zsivrqu and prescription medicines only as told by your provider. ??? Do not take medicines that help you poop (laxatives) unless told by your provider. General instructions ??? Watch your condition for any changes. ??? Drink enough fluid to keep your pee (urine) pale yellow. Contact a health care provider if: ??? Your pain changes, gets worse, or lasts longer than expected. ??? You have severe cramping or bloating in your abdomen, or you vomit. ??? Your pain gets worse with meals, after eating, or with certain foods. ??? You are constipated or have diarrhea for more than 2?3 days. ??? You are not hungry, or you lose weight without trying. ??? You have signs of dehydration. These may include: ? Dark pee, very little pee, or no pee. ? Cracked lips or dry mouth. ? Sleepiness or weakness. ??? You have pain when you pee (urinate) or poop. ??? Your abdominal pain wakes you up at night. ??? You have blood in your pee. ??? You have a fever. Get help right away if: ??? You cannot stop vomiting. ??? Your pain is only in one part of the abdomen. Pain on the right side could be caused by appendicitis. ??? You have bloody or black poop (stool), or poop that looks like tar. ??? You have trouble breathing. ??? You have chest pain. These symptoms may be an emergency. Get help right away. Call 911. ??? Do not wait to see if the symptoms will go away. ??? Do not drive yourself to the hospital. This information is not intended to replace advice given to you by your health care provider. Make sure you discuss any questions you have with your health care provider. Document Revised: 02/14/2023 Document Reviewed: 02/14/2023 [employer] Patient Education ? 2023 BDA. [facility] 05-20-2024 Telephone encounter Note No need to continue cipro. Thanks. [facility] 05-20-2024 Miscellaneous Notes No need to continue cipro. Thanks. Pt calls stating he's taking his last cipro today, and wants to know if he should be continuing on this? Pt states he does not have any s/s of UTI at this time. Explained to pt that we do not usually continue on cipro unless there is an active infection or pt is having s/s of infection. Pt verbalized understanding. Please advise if you have other recommendations. Thanks Liana Mcghee RN documented in this encounter [facility] 05-20-2024 Telephone encounter Note Pt calls stating he's taking his last cipro today, and wants to know if he should be continuing on this? Pt states he does not have any s/s of UTI at this time. Explained to pt that we do not usually continue on cipro unless there is an active infection or pt is having s/s of infection. Pt verbalized understanding. Please advise if you have other recommendations. Thanks Liana Mcghee RN [facility] 05-16-2024 Telephone encounter Note Pt planned on picking this up today and starting it. Liana Mcghee RN [facility] 05-16-2024 Miscellaneous Notes Pt planned on picking this up today and starting it. Liana Mcghee RN Yes, ok to start antibiotics. Thanks Call placed to pt and due to the snow, he'd like this filled at his local pharmacy because our office is too far to drive. Script called to [facility] in [place]. A culture was not ordered. Per lab we cannot add a culture to this specimen. Is it ok for pt to get started on antibiotics since he's symptomatic and he's not able to come to the office due to the snow? Please advise Liana Mcghee RN I sent ciprofloxacin to pharmacy. Please tell him to take it. Thanks I need urine culture results. Send cipro 500mg daily for 5 days. Thanks. Pt calling requesting results of urinalysis. Pt states he continues to have symptoms. Please advise Liana Mcghee RN documented in this encounter [facility] 05-16-2024 Telephone encounter Note Yes, ok to start antibiotics. Thanks [facility] 05-16-2024 Telephone encounter Note Call placed to pt and due to the snow, he'd like this filled at his local pharmacy because our office is too far to drive. Script called to [facility] in [place]. A culture was not ordered. Per lab we cannot add a culture to this specimen. Is it ok for pt to get started on antibiotics since he's symptomatic and he's not able to come to the office due to the snow? Please advise Liana Mcghee RN [facility] 05-16-2024 Telephone encounter Note I sent ciprofloxacin to pharmacy. Please tell him to take it. Thanks [facility] 05-16-2024 Telephone encounter Note I need urine culture results. Send cipro 500mg daily for 5 days. Thanks. [facility] 05-15-2024 Telephone encounter Note Pt calling requesting results of urinalysis. Pt states he continues to have symptoms. Please advise Liana Mcghee RN [facility] 05-02-2024 Note HNO ID: [id number] Author: JADE CARTER RN Service: ? Author Type: Registered Nurse Type: Progress Notes Filed: 05/02/2024 12:23 Note Text: 0915-Howe placed via sterile technique pt adrián well. Clear yellow urine noted in howe bag appro 100 ml 0928- BCG instilled at this time without issues. Pt adrián well. Pt reminded to turn q 15 mins. Pt states understanding. 1000- RN checked on pt no needs at this time. 1043- Pt asks if a little urin could be let out. RN unclamped for 1 mins. Pt states blkadder feels a little better 1128- RN unclamped howe at this time. Drained 750 ml of clear yellow urine. 1135- howe d/c without isses pt adrián well. [facility] 05-02-2024 History of Presen t illness Narrative 0915-Howe placed via sterile technique pt adrián well. Clear yellow urine noted in howe bag appro 100 ml 0928- BCG instilled at this time without issues. Pt adrián well. Pt reminded to turn q 15 mins. Pt states understanding. 1000- RN checked on pt no needs at this time. 1043- Pt asks if a little urin could be let out. RN unclamped for 1 mins. Pt states blkadder feels a little better 1128- RN unclamped howe at this time. Drained 750 ml of clear yellow urine. 1135- howe d/c without isses pt adrián well. documented in this encounter [facility] 05-02-2024 Note HNO ID: [id number] Author: HILARIA WILSON MA Service: ? Author Type: Boilermaker Type: Progress Notes Filed: 05/02/2024 08:49 Note Text: UA performed as ordered. Hilaria Wilson MA [facility] 05-02-2024 History of Presen t illness Narrative UA performed as ordered. Hilaria Wilson MA documented in this encounter [facility] 05-02-2024 History of Presen t illness Narrative Images from the original note were not included. PATIENT NAME: Kingsley Jennings CLINIC NO.: [id number] ATTENDING PHYSICIAN: Jacek Cano MD DATE OF SERVICE: May 02, [address] Eusebia Galindo [address] [place] [address] thank you for referring Kingsley Jennings for an opinion regarding bladder cancer. 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 Interval History: Patient here for consideration of week 6 of BCG. Patient denies any urinary symptoms. UA in the office today was negative. We will proceed with BCG. Patient's son is here with him today reviewed precautions and education for BCG. Overall patient is feeling well. No signs of infection. Will continue to monitor through his BCG treatments. No nausea or vomiting. Staying hydrated. Eating good. Energy level is good. CT abdomen pelvis noncontrast showed bladder wall thickening in February 2024 and a right bladder wall mass in December 2023. C/o back pain and insomnia. Underwent transurethral resection of bladder tumor measuring approx 4cm on 02/07/24. Underwent transurethral resection of bladder tumor measuring approx 3cm and deep bladder biopsies on 02/21/24. Urologist recommended intravesical BCG treatments. Current Outpatient Medications Medication Sig melatonin 10 mg tab Take 1 tablet by mouth daily at bedtime. polyethylene glycol 3350 (PURELAX) 17 gram packet Take 17 g by mouth once daily. Dissolve dose in 4 - 8 ounces of liquid and take as directed. psyllium (METAMUCIL FIBER SINGLES) 3.4 gram packet Take 1 Packet by mouth once daily. Docosahexanoic Acid-Eicosapent (FISH OIL) 120-180 mg capsule Take 2 g by mouth as needed (pt states he takes this off and on). pyridoxine, vitamin B6, (VITAMIN B-6) 25 mg tablet Take 25 mg by mouth once daily as needed (pt states he takes this off and on). mecobalamin (B12 ACTIVE ORAL) Take 1 tablet by mouth once daily as needed (pt states he takes this off and on). Vitamin E, dl, acetate, (VITAMIN E) 134 mg (200 unit) Capsule Take 200 Units by mouth once daily as needed (pt states he takes this off and on). Qetqqyxellnud-Oeafjbwe-Hasfiu (MULTIVITAMIN 50 PLUS) tab Take 1 tablet by mouth once daily as needed (pt states he takes this off and on). magnesium chloride 64 mg magnesium tab Take 1 tablet by mouth once daily as needed (pt states he takes this off and on). levothyroxine (SYNTHROID) 137 mcg tablet Take by mouth. aspirin, enteric coated (ASPIRIN, ENTERIC COATED) 81 mg EC tablet in the morning. amLODIPine (NORVASC) 2.5 mg tablet Take 2.5 mg by mouth. carvedilol (COREG) 3.125 mg tablet Take 6.25 mg by mouth. Cholecalciferol, Vitamin D3, 50 mcg (2,000 unit) cap Take 2,000 Int'l Units by mouth. diclofenac, EC, (VOLTAREN) 50 mg EC tablet Take 50 mg by mouth. isosorbide mononitrate ER (IMDUR) 30 mg 24 hr tablet Take 15 mg by mouth once daily. mupirocin (BACTROBAN) 2 % ointment rosuvastatin (CRESTOR) 20 mg tablet Take 20 mg by mouth. tamsulosin (FLOMAX) 0.4 mg Take 0.8 mg by mouth once daily. triamcinolone acetonide (KENALOG) 0.1 % cream No current facility-administered medications for this visit. 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 Social History Substance Use Topics Alcohol use: Not Currently Comment: denies alcohol use 01/15/2019 REVIEW OF SYSTEMS GENERAL: No weight loss, malaise or fevers. No night sweats. HEENT: Negative for headaches, No changes in hearing or vision, no nose bleeds or other nasal problems. RESPIRATORY: Negative for cough, wheezing and shortness of breath CARDIOVASCULAR: Negative for chest pain, leg swelling and palpitations GI: Negative for abdominal discomfort, blood in stools or black stools and change in bowel habits : Negative for dysuria, frequency and incontinence MUSCULOSKELETAL: Negative for joint pain or swelling, back pain, and muscle pain. SKIN: Negative for lesions, rash, and itching. HEMATOLOGY/LYMPHOLOGY Negative for prolonged bleeding, bruising easily, and swollen nodes. NEURO: Negative for numbness or tingling of hands/feet. No weakness. PHYSICAL EXAMINATION: BP 143/68 Pulse (!) 55 Temp 36.2 C (97.2 F) (Temporal) Resp 18 Wt 75.2 kg (165 lb 12.6 oz) SpO2 98% BMI 24.48 kg/m There were no vitals taken for this visit. No data found for this vital: Wt General appearance:ECOG PERFORMANCE STATUS: 1- Restricted in physically strenuous activity. Carries out light duty. Patient in NAD. Skin: Skin color, texture, turgor normal. No rashes or lesions. Eyes: Anicteric sclera. Pupils are equally round and reactive to light. Extraocular movements are intact. Breast: No palpable breast masses. No nipple change or discharge. Lymph Nodes: No cervical, supraclavicular, axillary or inguinal adenopathy. Oropharynx: Lips, mucosa, and tongue normal. Back: No pain to percussion. Negative SLR test Lungs clear to auscultation, No wheezing or rhonchi Heart: RRR without murmur, gallop, or rubs. Abdomen soft, non-tender. No masses, organomegaly Extremities: No deformities. No edema Neuro: Gait and speech normal. Reflexes normal and symmetric. Muscular strength intact. Sensation grossly intact. Rectal: Deferred : Deferred LABS: Glucose (mg/dL) Date Value 05/02/2024 86 Potassium (mmol/L) Date Value 05/02/2024 4.5 Sodium (mmol/L) Date Value 05/02/2024 139 Chloride (mmol/L) Date Value 05/02/2024 106 CO2 (mmol/L) Date Value 05/02/2024 26 Creatinine (mg/dL) Date Value 05/02/2024 0.99 BUN (mg/dL) Date Value 05/02/2024 18 Anion Gap (mmol/L) Date Value 05/02/2024 7 Calcium, Total (mg/dL) Date Value 05/02/2024 10.2 Protein, Total (g/dL) Date Value 05/02/2024 5.8 Albumin (g/dL) Date Value 05/02/2024 4.0 Bilirubin, Total (mg/dL) Date Value 05/02/2024 0.6 Alkaline Phosphatase (U/L) Date Value 05/02/2024 68 AST (U/L) Date Value 05/02/2024 24 ALT (U/L) Date Value 05/02/2024 27 WBC Date Value Ref Range Status 05/02/2024 4.87 3.70 - 11.00 k/uL Final RBC Date Value Ref Range Status 05/02/2024 3.96 (L) 4.20 - 6.00 m/uL Final Hemoglobin Date Value Ref Range Status 05/02/2024 12.8 (L) 13.0 - 17.0 g/dL Final Hematocrit Date Value Ref Range Status 05/02/2024 37.9 (L) 39.0 - 51.0 % Final MCV Date Value Ref Range Status 05/02/2024 95.7 80.0 - 100.0 fL Final MCH Date Value Ref Range Status 05/02/2024 32.3 26.0 - 34.0 pg Final MCHC Date Value Ref Range Status 05/02/2024 33.8 30.5 - 36.0 g/dL Final RDW-CV Date Value Ref Range Status 05/02/2024 13.5 11.5 - 15.0 % Final Platelet Count Date Value Ref Range Status 05/02/2024 148 (L) 150 - 400 k/uL Final MPV Date Value Ref Range Status 05/02/2024 9.6 9.0 - 12.7 fL Final Abs Neut Date Value Ref Range Status 05/02/2024 2.88 1.45 - 7.50 k/uL Final Lymphocytes % Date Value Ref Range Status 05/02/2024 22.2 % Final Abs Lymph Date Value Ref Range Status 05/02/2024 1.08 1.00 - 4.00 k/uL Final Monocytes % Date Value Ref Range Status 05/02/2024 13.8 % Final Abs Waldo Date Value Ref Range Status 05/02/2024 0.67 <0.87 k/uL Final Abs Eosin Date Value Ref Range Status 05/02/2024 0.19 <0.46 k/uL Final Basophils % Date Value Ref Range Status 05/02/2024 0.8 % Final Abs Baso Date Value Ref Range Status 05/02/2024 0.04 <0.11 k/uL Final PATH: IMAGING: ASSESSMENT AND PLAN: Kingsley Jennings is a 88 year old year old male referred to us for high risk non muscle invasive bladder cancer. H/o CAD, HTN, DLD. PLAN: - He has high risk nonmuscle invasive bladder cancer. - Urologist recommended intravesical BCG treatments. - Proceed today with week one intravesical BCG, weekly x 6 treatments. - CT abdomen pelvis negative for distant metastasis. - Recent blood work is unremarkable. - Follow-up with the PCP for the back pain , chronic. - All his questions answered in detail - Follow-up in 3-[address] Sullivan. . Selena Donnelly APRN, SPORTS NUTRITIONIST-C, [facility] Provided at: [place], [place] CC: documented in this encounter [facility] 05-02-2024 Note HNO ID: [id number] Author: SELENA DONNELLY APRN.VALIDATION MANAGER Service: ? Author Type: Nurse Practitioner Type: Progress Notes Filed: 05/02/2024 11:28 Note Text: PATIENT NAME: Kingsley Jennings [facility] NO.: [id number] ATTENDING PHYSICIAN: Jacek Cano MD DATE OF SERVICE: May 02, [address] Eusebia Galindo [address] [place] [address] thank you for referring Kingsley Jennings for an opinion regarding bladder cancer. 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 Interval History: Patient here for consideration of week 6 of BCG. Patient denies any urinary symptoms. UA in the office today was negative. We will proceed with BCG. Patient's son is here with him today reviewed precautions and education for BCG. Overall patient is feeling well. No signs of infection. Will continue to monitor through his BCG treatments. No nausea or vomiting. Staying hydrated. Eating good. Energy level is good. CT abdomen pelvis noncontrast showed bladder wall thickening in February 2024 and a right bladder wall mass in December 2023. C/o back pain and insomnia. Underwent transurethral resection of bladder tumor measuring approx 4cm on 02/07/24. Underwent transurethral resection of bladder tumor measuring approx 3cm and deep bladder biopsies on 02/21/24. Urologist recommended intravesical BCG treatments. Current Outpatient Medications Medication Sig melatonin 10 mg tab Take 1 tablet by mouth daily at bedtime. polyethylene glycol 3350 (PURELAX) 17 gram packet Take 17 g by mouth once daily. Dissolve dose in 4 - 8 ounces of liquid and take as directed. psyllium (METAMUCIL FIBER SINGLES) 3.4 gram packet Take 1 Packet by mouth once daily. Docosahexanoic Acid-Eicosapent (FISH OIL) 120-180 mg capsule Take 2 g by mouth as needed (pt states he takes this off and on). pyridoxine, vitamin B6, (VITAMIN B-6) 25 mg tablet Take 25 mg by mouth once daily as needed (pt states he takes this off and on). mecobalamin (B12 ACTIVE ORAL) Take 1 tablet by mouth once daily as needed (pt states he takes this off and on). Vitamin E, dl, acetate, (VITAMIN E) 134 mg (200 unit) Capsule Take 200 Units by mouth once daily as needed (pt states he takes this off and on). Uxhotylxrhsvo-Kuujtsgg-Ztolgi (MULTIVITAMIN 50 PLUS) tab Take 1 tablet by mouth once daily as needed (pt states he takes this off and on). magnesium chloride 64 mg magnesium tab Take 1 tablet by mouth once daily as needed (pt states he takes this off and on). levothyroxine (SYNTHROID) 137 mcg tablet Take by mouth. aspirin, enteric coated (ASPIRIN, ENTERIC COATED) 81 mg EC tablet in the morning. amLODIPine (NORVASC) 2.5 mg tablet Take 2.5 mg by mouth. carvedilol (COREG) 3.125 mg tablet Take 6.25 mg by mouth. Cholecalciferol, Vitamin D3, 50 mcg (2,000 unit) cap Take 2,000 Int'l Units by mouth. diclofenac, EC, (VOLTAREN) 50 mg EC tablet Take 50 mg by mouth. isosorbide mononitrate ER (IMDUR) 30 mg 24 hr tablet Take 15 mg by mouth once daily. mupirocin (BACTROBAN) 2 % ointment rosuvastatin (CRESTOR) 20 mg tablet Take 20 mg by mouth. tamsulosin (FLOMAX) 0.4 mg Take 0.8 mg by mouth once daily. triamcinolone acetonide (KENALOG) 0.1 % cream No current facility-administered medications for this visit. 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 Social History Substance Use Topics Alcohol use: Not Currently Comment: denies alcohol use 01/15/2019 REVIEW OF SYSTEMS GENERAL: No weight loss, malaise or fevers. No night sweats. HEENT: Negative for headaches, No changes in hearing or vision, no nose bleeds or other nasal problems. RESPIRATORY: Negative for cough, wheezing and shortness of breath CARDIOVASCULAR: Negative for chest pain, leg swelling and palpitations GI: Negative for abdominal discomfort, blood in stools or black stools and change in bowel habits : Negative for dysuria, frequency and incontinence MUSCULOSKELETAL: Negative for joint pain or swelli (more content not included)... [facility] 04-28-[address] labs for appt on 05/02 if needed. Brianna Landaverde MA documented in this encounter [facility] 04-28-2024 Telephone encounter Note Please place labs for appt on 05/02 if needed. Brianna Landaverde MA [facility] 04-25-2024 Note HNO ID: [id number] Author: OTTONIEL HOGAN RN Service: ? Author Type: Registered Nurse Type: Progress Notes Filed: 04/25/2024 14:56 Note Text: 0830- Patient arrived to infusion room. VSS. 0900- 16 jamaican howe inserted per policy, clear yellow urine draining to gravity. No further questions or concerns. Call light within reach. Patient lying supine with head slightly elevated. BCG released to pharmacy. Will continue to monitor. 0938- Clamped howe drain. Instilled bcg; approximately 180 cc's clear yellow urine drained out prior to bcg. 1000- patient turning independently and tolerating well. Call light within reach. 1045-patient rang quiroz and requested relief. RN unclamped catheter for a few seconds. Patient tolerating better. Will continue to monitor. 1102-patient rang quiroz and requested relief via releasing clamp. Again, patient felt better and agreed to proceed with clamp, again. 1130 released howe and approximately 500 cc's of clear yellow urine flowed out to gravity. Patient instructed to cut back on PO fluids prior to next procedure/dose. Patient verbalized understanding. Patient d/c home after getting dressed. No further questions or concerns at this time. Ottoniel Hogan RN [facility] 04-25-2024 History of Presen t illness Narrative 0830- Patient arrived to infusion room. VSS. 0900- 16 jamaican howe inserted per policy, clear yellow urine draining to gravity. No further questions or concerns. Call light within reach. Patient lying supine with head slightly elevated. BCG released to pharmacy. Will continue to monitor. 0938- Clamped howe drain. Instilled bcg; approximately 180 cc's clear yellow urine drained out prior to bcg. 1000- patient turning independently and tolerating well. Call light within reach. 1045-patient rang quiroz and requested relief. RN unclamped catheter for a few seconds. Patient tolerating better. Will continue to monitor. 1102-patient rang quiroz and requested relief via releasing clamp. Again, patient felt better and agreed to proceed with clamp, again. 1130 released howe and approximately 500 cc's of clear yellow urine flowed out to gravity. Patient instructed to cut back on PO fluids prior to next procedure/dose. Patient verbalized understanding. Patient d/c home after getting dressed. No further questions or concerns at this time. Ottoniel Hogan RN UA results reviewed and adequate for treatment Charly Kearney RN documented in this encounter [facility] 04-25-2024 Note HNO ID: [id number] Author: CHARLY KEARNEY RN Service: ? Author Type: Registered Nurse Type: Progress Notes Filed: 04/25/2024 14:56 Note Text: UA results reviewed and adequate for treatment Charly Kearney RN [facility] 04-25-2024 Note HNO ID: [id number] Author: BHARGAVI MONTOYA MA Service: ? Author Type: Boilermaker Type: Progress Notes Filed: 04/25/2024 08:41 Note Text: UA performed as ordered. Bhargavi Montoya MA [facility] 04-25-2024 History of Presen t illness Narrative UA performed as ordered. Bhargavi Montoya MA documented in this encounter [facility] 04-18-2024 Note HNO ID: [id number] Author: JADE CARTER RN Service: ? Author Type: Registered Nurse Type: Progress Notes Filed: 04/18/2024 13:46 Note Text: 0900 Howe placed via sterile technique pt adrián well. Clear yellow urine noted in howe bag. 1022- BCG instilled without issues. Pt reminded to turn q 15 mins. 1115- pt asking for RN to drain some urine states Feel really full 1222- Pt held remainder of BCG without issues. 1230- howe d/c without issues. Jade Carter RN Pt educated on use of cream per TREVER [place] pt states understanding [facility] 04-18-2024 History of Presen t illness Narrative 0900 Howe placed via sterile technique pt adrián well. Clear yellow urine noted in howe bag. 1022- BCG instilled without issues. Pt reminded to turn q 15 mins. 1115- pt asking for RN to drain some urine states Feel really full 1222- Pt held remainder of BCG without issues. 1230- howe d/c without issues. Jade Carter RN Pt educated on use of cream per TREVER [place] pt states understanding Pt her for BCG- leaked 2 weeks ago and was held last week d/t uti- reporting a rash to his thigh- area light pink but tender- asking if there is anything he can put on it. Discussed with Elizabeth Donnelly Cnp who recommends a thick cream like eucerin. Treatment rn to notify pt. documented in this encounter [facility] 04-18-2024 Note HNO ID: [id number] Author: SYDNEY ESTEVES RN Service: ? Author Type: Registered Nurse Type: Progress Notes Filed: 04/18/2024 13:46 Note Text: Pt her for BCG- leaked 2 weeks ago and was held last week d/t uti- reporting a rash to his thigh- area light pink but tender- asking if there is anything he can put on it. Discussed with Elizabeth Donnelly Cnp who recommends a thick cream like eucerin. Treatment rn to notify pt. [facility] 04-18-2024 Nurse Note UA performed as ordered. Hilaria Wilson MA [facility] 04-18-2024 Nurse Note UA performed as ordered. Hilaria Wilson MA documented in this encounter [facility] 04-11-2024 Note HNO ID: [id number] Author: JADE CARTER RN Service: ? Author Type: Registered Nurse Type: Progress Notes Filed: 04/11/2024 12:31 Note Text: 0935-16F Howe placed via sterile technique pt adrián well without issues . Clear yellow urine noted in howe bag. 100 ml urine noted in howe bag. 0945- BCG instilled without issues. Pt reminded to turn q 15 mins. 1030- Pt states I feel really full. RN let out some urine. 1110- Pt states I need to be done I feel a lot of pressure. RN unclamped and let urine drain. 700 ml clear yellow urine. 1125- howe removed with out issues. 1130- Rn walked pt to check out [facility] 04-11-2024 History of Presen t illness Narrative 0935-16F Howe placed via sterile technique pt adrián well without issues . Clear yellow urine noted in howe bag. 100 ml urine noted in howe bag. 0945- BCG instilled without issues. Pt reminded to turn q 15 mins. 1030- Pt states I feel really full. RN let out some urine. 1110- Pt states I need to be done I feel a lot of pressure. RN unclamped and let urine drain. 700 ml clear yellow urine. 1125- howe removed with out issues. 1130- Rn walked pt to check out documented in this encounter [facility] 04-11-2024 Nurse Note UA performed as ordered. Bhargavi Montoya MA [facility] 04-11-2024 Nurse Note UA performed as ordered. Bhargavi Montoya MA documented in this encounter [facility] 04-11-2024 History of Presen t illness Narrative Images from the original note were not included. PATIENT NAME: Kingsley Jennings [facility] NO.: [id number] ATTENDING PHYSICIAN: Jacek Cano MD DATE OF SERVICE: April 11, [address] Eusebia Galindo [address] [place] [id number] thank you for referring Kingsley Jennings for an opinion regarding bladder cancer. 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 Interval History: Patient here for consideration of week 3 of BCG. Patient denies any urinary symptoms. UA in the office today was negative. We will proceed with BCG. Patient's son is here with him today reviewed precautions and education for BCG. Overall patient is feeling well. No signs of infection. Will continue to monitor through his BCG treatments. No nausea or vomiting. Staying hydrated. Eating good. CT abdomen pelvis noncontrast showed bladder wall thickening in February 2024 and a right bladder wall mass in December 2023. C/o back pain and insomnia. Underwent transurethral resection of bladder tumor measuring approx 4cm on 02/07/24. Underwent transurethral resection of bladder tumor measuring approx 3cm and deep bladder biopsies on 02/21/24. Urologist recommended intravesical BCG treatments. Current Outpatient Medications Medication Sig melatonin 10 mg tab Take 1 tablet by mouth daily at bedtime. polyethylene glycol 3350 (PURELAX) 17 gram packet Take 17 g by mouth once daily. Dissolve dose in 4 - 8 ounces of liquid and take as directed. psyllium (METAMUCIL FIBER SINGLES) 3.4 gram packet Take 1 Packet by mouth once daily. Docosahexanoic Acid-Eicosapent (FISH OIL) 120-180 mg capsule Take 2 g by mouth as needed (pt states he takes this off and on). pyridoxine, vitamin B6, (VITAMIN B-6) 25 mg tablet Take 25 mg by mouth once daily as needed (pt states he takes this off and on). mecobalamin (B12 ACTIVE ORAL) Take 1 tablet by mouth once daily as needed (pt states he takes this off and on). Vitamin E, dl, acetate, (VITAMIN E) 134 mg (200 unit) Capsule Take 200 Units by mouth once daily as needed (pt states he takes this off and on). Bajlascbmbtrl-Crnzoprj-Scelni (MULTIVITAMIN 50 PLUS) tab Take 1 tablet by mouth once daily as needed (pt states he takes this off and on). magnesium chloride 64 mg magnesium tab Take 1 tablet by mouth once daily as needed (pt states he takes this off and on). levothyroxine (SYNTHROID) 137 mcg tablet Take by mouth. aspirin, enteric coated (ASPIRIN, ENTERIC COATED) 81 mg EC tablet in the morning. amLODIPine (NORVASC) 2.5 mg tablet Take 2.5 mg by mouth. carvedilol (COREG) 3.125 mg tablet Take 6.25 mg by mouth. Cholecalciferol, Vitamin D3, 50 mcg (2,000 unit) cap Take 2,000 Int'l Units by mouth. diclofenac, EC, (VOLTAREN) 50 mg EC tablet Take 50 mg by mouth. isosorbide mononitrate ER (IMDUR) 30 mg 24 hr tablet Take 15 mg by mouth once daily. rosuvastatin (CRESTOR) 20 mg tablet Take 20 mg by mouth. tamsulosin (FLOMAX) 0.4 mg Take 0.8 mg by mouth once daily. triamcinolone acetonide (KENALOG) 0.1 % cream mupirocin (BACTROBAN) 2 % ointment APPLY 1 APPLICATION TOPICALLY TWICE A DAY FOR 5 DAYS (Patient not taking: Reported on 03/21/2024) No current facility-administered medications for this visit. 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 Social History Substance Use Topics Alcohol use: Not Currently Comment: denies alcohol use 01/15/2019 REVIEW OF SYSTEMS GENERAL: No weight loss, malaise or fevers. No night sweats. HEENT: Negative for headaches, No changes in hearing or vision, no nose bleeds or other nasal problems. RESPIRATORY: Negative for cough, wheezing and shortness of breath CARDIOVASCULAR: Negative for chest pain, leg swelling and palpitations GI: Negative for abdominal discomfort, blood in stools or black stools and change in bowel habits : Negative for dysuria, frequency and incontinence MUSCULOSKELETAL: Negative for joint pain or swelling, back pain, and muscle pain. SKIN: Negative for lesions, rash, and itching. HEMATOLOGY/LYMPHOLOGY Negative for prolonged bleeding, bruising easily, and swollen nodes. NEURO: Negative for numbness or tingling of hands/feet. No weakness. PHYSICAL EXAMINATION: BP 176/87 Pulse (!) 56 Temp 36.6 C (97.8 F) (Temporal) Resp 18 Ht 175.3 cm (5' 9 ) Wt 75.2 kg (165 lb 12.6 oz) SpO2 97% BMI 24.48 kg/m There were no vitals taken for this visit. No data found for this vital: Wt General appearance:ECOG PERFORMANCE STATUS: 1- Restricted in physically strenuous activity. Carries out light duty. Patient in NAD. Skin: Skin color, texture, turgor normal. No rashes or lesions. Eyes: Anicteric sclera. Pupils are equally round and reactive to light. Extraocular movements are intact. Breast: No palpable breast masses. No nipple change or discharge. Lymph Nodes: No cervical, supraclavicular, axillary or inguinal adenopathy. Oropharynx: Lips, mucosa, and tongue normal. Back: No pain to percussion. Negative SLR test Lungs clear to auscultation, No wheezing or rhonchi Heart: RRR without murmur, gallop, or rubs. Abdomen soft, non-tender. No masses, organomegaly Extremities: No deformities. No edema Neuro: Gait and speech normal. Reflexes normal and symmetric. Muscular strength intact. Sensation grossly intact. Rectal: Deferred : Deferred LABS: Glucose (mg/dL) Date Value 03/28/2024 85 Potassium (mmol/L) Date Value 03/28/2024 4.8 Sodium (mmol/L) Date Value 03/28/2024 135 Chloride (mmol/L) Date Value 03/28/2024 104 CO2 (mmol/L) Date Value 03/28/2024 26 Creatinine (mg/dL) Date Value 03/28/2024 1.06 BUN (mg/dL) Date Value 03/28/2024 21 Anion Gap (mmol/L) Date Value 03/28/2024 5 Calcium, Total (mg/dL) Date Value 03/28/2024 10.0 Protein, Total (g/dL) Date Value 03/28/2024 5.5 Albumin (g/dL) Date Value 03/28/2024 3.7 Bilirubin, Total (mg/dL) Date Value 03/28/2024 0.7 Alkaline Phosphatase (U/L) Date Value 03/28/2024 69 AST (U/L) Date Value 03/28/2024 23 ALT (U/L) Date Value 03/28/2024 25 WBC Date Value Ref Range Status 03/28/2024 4.90 3.70 - 11.00 k/uL Final RBC Date Value Ref Range Status 03/28/2024 3.90 (L) 4.20 - 6.00 m/uL Final Hemoglobin Date Value Ref Range Status 03/28/2024 12.7 (L) 13.0 - 17.0 g/dL Final Hematocrit Date Value Ref Range Status 03/28/2024 37.1 (L) 39.0 - 51.0 % Final MCV Date Value Ref Range Status 03/28/2024 95.1 80.0 - 100.0 fL Final MCH Date Value Ref Range Status 03/28/2024 32.6 26.0 - 34.0 pg Final MCHC Date Value Ref Range Status 03/28/2024 34.2 30.5 - 36.0 g/dL Final RDW-CV Date Value Ref Range Status 03/28/2024 14.1 11.5 - 15.0 % Final Platelet Count Date Value Ref Range Status 03/28/2024 172 150 - 400 k/uL Final MPV Date Value Ref Range Status 03/28/2024 9.3 9.0 - 12.7 fL Final Abs Neut Date Value Ref Range Status 03/28/2024 2.93 1.45 - 7.50 k/uL Final Lymphocytes % Date Value Ref Range Status 03/28/2024 18.2 % Final Abs Lymph Date Value Ref Range Status 03/28/2024 0.89 (L) 1.00 - 4.00 k/uL Final Monocytes % Date Value Ref Range Status 03/28/2024 17.3 % Final Abs Waldo Date Value Ref Range Status 03/28/2024 0.85 <0.87 k/uL Final Abs Eosin Date Value Ref Range Status 03/28/2024 0.17 <0.46 k/uL Final Basophils % Date Value Ref Range Status 03/28/2024 0.6 % Final Abs Baso Date Value Ref Range Status 03/28/2024 0.03 <0.11 k/uL Final PATH: IMAGING: ASSESSMENT AND PLAN: Kingsley Jennings is a 88 year old year old male referred to us for high risk non muscle invasive bladder cancer. H/o CAD, HTN, DLD. PLAN: - He has high risk nonmuscle invasive bladder cancer. - Urologist recommended intravesical BCG treatments. - Proceed today with week one intravesical BCG, weekly x 6 treatments. - CT abdomen pelvis negative for distant metastasis. - Recent blood work is unremarkable. - Follow-up with the PCP for the back pain , chronic. - All his questions answered in detail - Follow-up in [address] Sullivan. . Selena Donnelly APRN, SPORTS NUTRITIONIST-C, OCN [facility] Provided at: [place], [place] CC: documented in this encounter [facility] 04-11-2024 Note HNO ID: [id number] Author: SELENA DONNELLY APRN.VALIDATION MANAGER Service: ? Author Type: Nurse Practitioner Type: Progress Notes Filed: 04/11/2024 10:34 Note Text: PATIENT NAME: Kingsley Jennings [facility] NO.: [id number] ATTENDING PHYSICIAN: Jacek Cano MD DATE OF SERVICE: April 11, [address] Eusebia Galindo [address] [place] [id number] thank you for referring Kingsley Jennings for an opinion regarding bladder cancer. 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 Interval History: Patient here for consideration of week 3 of BCG. Patient denies any urinary symptoms. UA in the office today was negative. We will proceed with BCG. Patient's son is here with him today reviewed precautions and education for BCG. Overall patient is feeling well. No signs of infection. Will continue to monitor through his BCG treatments. No nausea or vomiting. Staying hydrated. Eating good. CT abdomen pelvis noncontrast showed bladder wall thickening in February 2024 and a right bladder wall mass in December 2023. C/o back pain and insomnia. Underwent transurethral resection of bladder tumor measuring approx 4cm on 02/07/24. Underwent transurethral resection of bladder tumor measuring approx 3cm and deep bladder biopsies on 02/21/24. Urologist recommended intravesical BCG treatments. Current Outpatient Medications Medication Sig melatonin 10 mg tab Take 1 tablet by mouth daily at bedtime. polyethylene glycol 3350 (PURELAX) 17 gram packet Take 17 g by mouth once daily. Dissolve dose in 4 - 8 ounces of liquid and take as directed. psyllium (METAMUCIL FIBER SINGLES) 3.4 gram packet Take 1 Packet by mouth once daily. Docosahexanoic Acid-Eicosapent (FISH OIL) 120-180 mg capsule Take 2 g by mouth as needed (pt states he takes this off and on). pyridoxine, vitamin B6, (VITAMIN B-6) 25 mg tablet Take 25 mg by mouth once daily as needed (pt states he takes this off and on). mecobalamin (B12 ACTIVE ORAL) Take 1 tablet by mouth once daily as needed (pt states he takes this off and on). Vitamin E, dl, acetate, (VITAMIN E) 134 mg (200 unit) Capsule Take 200 Units by mouth once daily as needed (pt states he takes this off and on). Cfzmlpkmcwdxi-Nralhkqo-Xupkei (MULTIVITAMIN 50 PLUS) tab Take 1 tablet by mouth once daily as needed (pt states he takes this off and on). magnesium chloride 64 mg magnesium tab Take 1 tablet by mouth once daily as needed (pt states he takes this off and on). levothyroxine (SYNTHROID) 137 mcg tablet Take by mouth. aspirin, enteric coated (ASPIRIN, ENTERIC COATED) 81 mg EC tablet in the morning. amLODIPine (NORVASC) 2.5 mg tablet Take 2.5 mg by mouth. carvedilol (COREG) 3.125 mg tablet Take 6.25 mg by mouth. Cholecalciferol, Vitamin D3, 50 mcg (2,000 unit) cap Take 2,000 Int'l Units by mouth. diclofenac, EC, (VOLTAREN) 50 mg EC tablet Take 50 mg by mouth. isosorbide mononitrate ER (IMDUR) 30 mg 24 hr tablet Take 15 mg by mouth once daily. rosuvastatin (CRESTOR) 20 mg tablet Take 20 mg by mouth. tamsulosin (FLOMAX) 0.4 mg Take 0.8 mg by mouth once daily. triamcinolone acetonide (KENALOG) 0.1 % cream mupirocin (BACTROBAN) 2 % ointment APPLY 1 APPLICATION TOPICALLY TWICE A DAY FOR 5 DAYS (Patient not taking: Reported on 03/21/2024) No current facility-administered medications for this visit. 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 Social History Substance Use Topics Alcohol use: Not Currently Comment: denies alcohol use 01/15/2019 REVIEW OF SYSTEMS GENERAL: No weight loss, malaise or fevers. No night sweats. HEENT: Negative for headaches, No changes in hearing or vision, no nose bleeds or other nasal problems. RESPIRATORY: Negative for cough, wheezing and shortness of breath CARDIOVASCULAR: Negative for chest pain, leg swelling and palpitations GI: Negative for abdominal discomfort, blood in stools or black stools and change in bowel habits : Negative for dysuria, fr (more content not included)... [facility] 04-04-2024 Note HNO ID: [id number] Author: BRISA DONALD RN Service: ? Author Type: Registered Nurse Type: Progress Notes Filed: 04/04/2024 13:17 Note Text: 0900 16 Fr howe cath inserted following lidojet. Clear urine return. 0932 howe clamped. 75cc in bag. BCG instilled. Pt will turn every 15 min from side to side. Call light at bedside. 1018 pt request to have cath unclamped for a short period to drain a little d/t feeling full . Unclamped for about 30cc. Reclamped. 1044 turning from side to side. Requests howe to be unclamped for comfort again. Unclamped and allowed to drain a small amount and reclamped. 1115 pt request to end treatment after asking for howe to be unclamped a third time. Pt is also leaking a little from catheter. Howe unclamped and allowed to drain 1120 howe removed. 700cc clear yellow urine in bag. Pericare done per pt. [facility] 04-04-2024 History of Presen t illness Narrative 0900 16 Fr howe cath inserted following lidojet. Clear urine return. 0932 howe clamped. 75cc in bag. BCG instilled. Pt will turn every 15 min from side to side. Call light at bedside. 1018 pt request to have cath unclamped for a short period to drain a little d/t feeling full . Unclamped for about 30cc. Reclamped. 1044 turning from side to side. Requests howe to be unclamped for comfort again. Unclamped and allowed to drain a small amount and reclamped. 1115 pt request to end treatment after asking for howe to be unclamped a third time. Pt is also leaking a little from catheter. Howe unclamped and allowed to drain 1120 howe removed. 700cc clear yellow urine in bag. Pericare done per pt. UA with small amount of hemoglobin and moderate amount of leukocytes. Pt asymptomatic and results reviewed with team. Okay to proceed with BCG treatment today. Urine will be sent for culture as well. documented in this encounter [facility] 04-04-2024 Nurse Note UA performed as ordered. Hilaria Wilson MA [facility] 04-04-2024 Nurse Note UA performed as ordered. Hilaria Wilson MA documented in this encounter [facility] 04-04-2024 Note HNO ID: [id number] Author: SYDNEY ESTEVES RN Service: ? Author Type: Registered Nurse Type: Progress Notes Filed: 04/04/2024 13:17 Note Text: UA with small amount of hemoglobin and moderate amount of leukocytes. Pt asymptomatic and results reviewed with team. Okay to proceed with BCG treatment today. Urine will be sent for culture as well. [facility] 04-03-2024 Telephone encounter Note Patient has an appt on 04/11/24. Would you like labs, if so place orders. Bhargavi Montoya MA [facility] 04-03-2024 Miscellaneous Notes Patient has an appt on 04/11/24. Would you like labs, if so place orders. Bhargavi Montoya MA documented in this encounter [facility] 04-01-2024 Telephone encounter Note CYCLE 1/DAY 1 POST TREATMENT CALL Today's date: April 01, 2024 Treatment Regimen: BCG C1D1 Date: 03/28/24 Called patient to follow-up on symptom management. Spoke with patient SYMPTOM ASSESSMENT Neuro: None CV/Resp: None GI/: Fluid intake: really good , Bladder/Urinary Changes: for the first 24 hours after treatment felt the need to go more often and had a little burning, but this resolved by the morning after treatment and denies N/V, states he takes daily stool softener which works well. Integument: None Activity: Patient reported normal Pain: No=0 (pain 0 on a scale of 0-10). Fever: No Chills: Yes pt states he always feels chilled from old age, this is nothing new for him. Any new referrals needed? No Reinforced CURRENT treatment education based on current and anticipated symptoms. Discussed port/line care and patient verbalizes understanding: Not Applicable Patient instructed to contact office or after hours Hematology/Oncology fellow for: temperature >= 100.4; questions or concerns. Patient verbalized understanding of when to seek medical attention and after hours number protocol. Liana Mcghee RN [facility] 04-01-2024 Miscellaneous Notes CYCLE 1/DAY 1 POST TREATMENT CALL Today's date: April 01, 2024 Treatment Regimen: BCG C1D1 Date: 03/28/24 Called patient to follow-up on symptom management. Spoke with patient SYMPTOM ASSESSMENT Neuro: None CV/Resp: None GI/: Fluid intake: really good , Bladder/Urinary Changes: for the first 24 hours after treatment felt the need to go more often and had a little burning, but this resolved by the morning after treatment and denies N/V, states he takes daily stool softener which works well. Integument: None Activity: Patient reported normal Pain: No=0 (pain 0 on a scale of 0-10). Fever: No Chills: Yes pt states he always feels chilled from old age, this is nothing new for him. Any new referrals needed? No Reinforced CURRENT treatment education based on current and anticipated symptoms. Discussed port/line care and patient verbalizes understanding: Not Applicable Patient instructed to contact office or after hours Hematology/Oncology fellow for: temperature >= 100.4; questions or concerns. Patient verbalized understanding of when to seek medical attention and after hours number protocol. Liana Mcghee, RN documented in this encounter [facility] 03-28-2024 Note HNO ID: [id number] Author: ANA KENNEY RN Service: ? Author Type: Registered Nurse Type: Progress Notes Filed: 03/28/2024 11:50 Note Text: 0920 -- BCG procedure explained to pt and pt denies questions or concerns. Pt prepared and ready for procedure. 0922 -- Urojet instilled per orders, followed by 16 fr howe catheter via sterile technique without issue and immediate return of clear, yellow urine into collection bag. Pt aware allowing for complete bladder drainage prior to BCG instillation. Pt in position of comfort on cart, blankets provided, call quiroz in reach. 1002 -- Bladder drainage complete with ~60 mL clear, yellow urine into collection bag. Howe tubing clamped at this time and BCG instilled per orders. Pt aware tubing will remain clamped and 2 hour dwell time for BCG with need to rotate self every 15 mins; pt denies questions and agreeable. Pt in position of comfort on cart, no needs, call quiroz in reach, continuing to monitor. 1028 -- Pt rotates self on cart without issue, no pain/spasm/leaking noted. No needs, call quiroz in reach, continuing to monitor. 1055 -- Pt continues rotating self on cart, states he is starting to feel like I'm filling up and have to go. Pt advised to retain BCG as long as possible, states he will go as long as he can. No leaking noted at this time, continuing to monitor. 1105 -- Pt rings call quiroz and requesting to release a bit of the howe tubing d/t pressure. ~15/20 mL released for relief as tolerated by pt. Pt aware we will try to continue with remainder of dwell time, but to notify RN if unable to continue. No leaking noted, call quiroz in reach, continuing to monitor. 1123 -- Pt states pressure and fullness worse and agreeable to finish dwell time. Howe tubing unclamped at this time and allowing for complete bladder drainage. Pt states immediate relief with drainage. 1134 -- Bladder drainage complete with 650 mL clear, yellow urine into collection bag. Pt states full resolution of pain/pressure to bladder area. 10 mL removed from catheter balloon and howe removed without issue. Pt dressing independently. Post BCG precautions reviewed with pt, no concerns or questions. Pt aware of next appt date/time and escorted to waiting room where son awaits. Ana Kenney RN [facility] 03-28-2024 History of Presen t illness Narrative 919 -- BCG procedure explained to pt and pt denies questions or concerns. Pt prepared and ready for procedure. 921 -- Urojet instilled per orders, followed by 16 fr howe catheter via sterile technique without issue and immediate return of clear, yellow urine into collection bag. Pt aware allowing for complete bladder drainage prior to BCG instillation. Pt in position of comfort on cart, blankets provided, call quiroz in reach. 1002 -- Bladder drainage complete with ~60 mL clear, yellow urine into collection bag. Howe tubing clamped at this time and BCG instilled per orders. Pt aware tubing will remain clamped and 2 hour dwell time for BCG with need to rotate self every 15 mins; pt denies questions and agreeable. Pt in position of comfort on cart, no needs, call quiroz in reach, continuing to monitor. 1028 -- Pt rotates self on cart without issue, no pain/spasm/leaking noted. No needs, call quiroz in reach, continuing to monitor. 1055 -- Pt continues rotating self on cart, states he is starting to feel like I'm filling up and have to go. Pt advised to retain BCG as long as possible, states he will go as long as he can. No leaking noted at this time, continuing to monitor. 1105 -- Pt rings call quiroz and requesting to release a bit of the howe tubing d/t pressure. ~15/20 mL released for relief as tolerated by pt. Pt aware we will try to continue with remainder of dwell time, but to notify RN if unable to continue. No leaking noted, call quiroz in reach, continuing to monitor. 1123 -- Pt states pressure and fullness worse and agreeable to finish dwell time. Howe tubing unclamped at this time and allowing for complete bladder drainage. Pt states immediate relief with drainage. 1134 -- Bladder drainage complete with 650 mL clear, yellow urine into collection bag. Pt states full resolution of pain/pressure to bladder area. 10 mL removed from catheter balloon and howe removed without issue. Pt dressing independently. Post BCG precautions reviewed with pt, no concerns or questions. Pt aware of next appt date/time and escorted to waiting room where son awaits. Ana Kenney RN documented in this encounter [facility] 03-28-2024 Nurse Note UA performed as ordered. Hilaria Wilson MA [facility] 03-28-2024 Nurse Note UA performed as ordered. Hilaria Wilson MA documented in this encounter [facility] 03-28-2024 History of Presen t illness Narrative Images from the original note were not included. PATIENT NAME: Kingsley Jennings [facility] NO.: [id number] ATTENDING PHYSICIAN: Jacek Cano MD DATE OF SERVICE: March 13, [address] Eusebia Galindo [address] [place] [id number] thank you for referring Kingsley Jennings for an opinion regarding bladder cancer. 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 Interval History: Patient here for consideration of week one of BCG. Patient was concerned about starting the BCG treatments with possible urinary tract infection. Patient denies any urinary symptoms. UA in the office today was negative. We will proceed with BCG. Patient's son is here with him today reviewed precautions and education for BCG. Overall patient is feeling well. No signs of infection. Will continue to monitor through his BCG treatments. CT abdomen pelvis noncontrast showed bladder wall thickening in February 2024 and a right bladder wall mass in December 2023. C/o back pain and insomnia. Underwent transurethral resection of bladder tumor measuring approx 4cm on 02/07/24. Underwent transurethral resection of bladder tumor measuring approx 3cm and deep bladder biopsies on 02/21/24. Urologist recommended intravesical BCG treatments. Current Outpatient Medications Medication Sig melatonin 10 mg tab Take 1 tablet by mouth daily at bedtime. polyethylene glycol 3350 (PURELAX) 17 gram packet Take 17 g by mouth once daily. Dissolve dose in 4 - 8 ounces of liquid and take as directed. psyllium (METAMUCIL FIBER SINGLES) 3.4 gram packet Take 1 Packet by mouth once daily. Docosahexanoic Acid-Eicosapent (FISH OIL) 120-180 mg capsule Take 2 g by mouth as needed (pt states he takes this off and on). pyridoxine, vitamin B6, (VITAMIN B-6) 25 mg tablet Take 25 mg by mouth once daily as needed (pt states he takes this off and on). mecobalamin (B12 ACTIVE ORAL) Take 1 tablet by mouth once daily as needed (pt states he takes this off and on). Vitamin E, dl, acetate, (VITAMIN E) 134 mg (200 unit) Capsule Take 200 Units by mouth once daily as needed (pt states he takes this off and on). Wcywvgftoqare-Mnjeoywm-Ptwfzx (MULTIVITAMIN 50 PLUS) tab Take 1 tablet by mouth once daily as needed (pt states he takes this off and on). magnesium chloride 64 mg magnesium tab Take 1 tablet by mouth once daily as needed (pt states he takes this off and on). levothyroxine (SYNTHROID) 137 mcg tablet Take by mouth. aspirin, enteric coated (ASPIRIN, ENTERIC COATED) 81 mg EC tablet in the morning. amLODIPine (NORVASC) 2.5 mg tablet Take 2.5 mg by mouth. carvedilol (COREG) 3.125 mg tablet Take 6.25 mg by mouth. Cholecalciferol, Vitamin D3, 50 mcg (2,000 unit) cap Take 2,000 Int'l Units by mouth. diclofenac, EC, (VOLTAREN) 50 mg EC tablet Take 50 mg by mouth. isosorbide mononitrate ER (IMDUR) 30 mg 24 hr tablet Take 15 mg by mouth once daily. rosuvastatin (CRESTOR) 20 mg tablet Take 20 mg by mouth. tamsulosin (FLOMAX) 0.4 mg Take 0.8 mg by mouth once daily. triamcinolone acetonide (KENALOG) 0.1 % cream mupirocin (BACTROBAN) 2 % ointment APPLY 1 APPLICATION TOPICALLY TWICE A DAY FOR 5 DAYS (Patient not taking: Reported on 03/21/2024) No current facility-administered medications for this visit. 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 Social History Substance Use Topics Alcohol use: Not Currently Comment: denies alcohol use 01/15/2019 REVIEW OF SYSTEMS GENERAL: No weight loss, malaise or fevers. No night sweats. HEENT: Negative for headaches, No changes in hearing or vision, no nose bleeds or other nasal problems. RESPIRATORY: Negative for cough, wheezing and shortness of breath CARDIOVASCULAR: Negative for chest pain, leg swelling and palpitations GI: Negative for abdominal discomfort, blood in stools or black stools and change in bowel habits : Negative for dysuria, frequency and incontinence MUSCULOSKELETAL: Negative for joint pain or swelling, back pain, and muscle pain. SKIN: Negative for lesions, rash, and itching. HEMATOLOGY/LYMPHOLOGY Negative for prolonged bleeding, bruising easily, and swollen nodes. NEURO: Negative for numbness or tingling of hands/feet. No weakness. PHYSICAL EXAMINATION: BP 163/88 Pulse (!) 59 Temp 36.2 C (97.2 F) (Temporal) Resp 16 Wt 75.1 kg (165 lb 9.1 oz) SpO2 98% There were no vitals taken for this visit. No data found for this vital: Wt General appearance:ECOG PERFORMANCE STATUS: 1- Restricted in physically strenuous activity. Carries out light duty. Patient in NAD. Skin: Skin color, texture, turgor normal. No rashes or lesions. Eyes: Anicteric sclera. Pupils are equally round and reactive to light. Extraocular movements are intact. Breast: No palpable breast masses. No nipple change or discharge. Lymph Nodes: No cervical, supraclavicular, axillary or inguinal adenopathy. Oropharynx: Lips, mucosa, and tongue normal. Back: No pain to percussion. Negative SLR test Lungs clear to auscultation, No wheezing or rhonchi Heart: RRR without murmur, gallop, or rubs. Abdomen soft, non-tender. No masses, organomegaly Extremities: No deformities. No edema Neuro: Gait and speech normal. Reflexes normal and symmetric. Muscular strength intact. Sensation grossly intact. Rectal: Deferred : Deferred LABS: Glucose (mg/dL) Date Value 03/28/2024 85 Potassium (mmol/L) Date Value 03/28/2024 4.8 Sodium (mmol/L) Date Value 03/28/2024 135 Chloride (mmol/L) Date Value 03/28/2024 104 CO2 (mmol/L) Date Value 03/28/2024 26 Creatinine (mg/dL) Date Value 03/28/2024 1.06 BUN (mg/dL) Date Value 03/28/2024 21 Anion Gap (mmol/L) Date Value 03/28/2024 5 Calcium, Total (mg/dL) Date Value 03/28/2024 10.0 Protein, Total (g/dL) Date Value 03/28/2024 5.5 Albumin (g/dL) Date Value 03/28/2024 3.7 Bilirubin, Total (mg/dL) Date Value 03/28/2024 0.7 Alkaline Phosphatase (U/L) Date Value 03/28/2024 69 AST (U/L) Date Value 03/28/2024 23 ALT (U/L) Date Value 03/28/2024 25 WBC Date Value Ref Range Status 03/28/2024 4.90 3.70 - 11.00 k/uL Final RBC Date Value Ref Range Status 03/28/2024 3.90 (L) 4.20 - 6.00 m/uL Final Hemoglobin Date Value Ref Range Status 03/28/2024 12.7 (L) 13.0 - 17.0 g/dL Final Hematocrit Date Value Ref Range Status 03/28/2024 37.1 (L) 39.0 - 51.0 % Final MCV Date Value Ref Range Status 03/28/2024 95.1 80.0 - 100.0 fL Final MCH Date Value Ref Range Status 03/28/2024 32.6 26.0 - 34.0 pg Final MCHC Date Value Ref Range Status 03/28/2024 34.2 30.5 - 36.0 g/dL Final RDW-CV Date Value Ref Range Status 03/28/2024 14.1 11.5 - 15.0 % Final Platelet Count Date Value Ref Range Status 03/28/2024 172 150 - 400 k/uL Final MPV Date Value Ref Range Status 03/28/2024 9.3 9.0 - 12.7 fL Final Abs Neut Date Value Ref Range Status 03/28/2024 2.93 1.45 - 7.50 k/uL Final Lymphocytes % Date Value Ref Range Status 03/28/2024 18.2 % Final Abs Lymph Date Value Ref Range Status 03/28/2024 0.89 (L) 1.00 - 4.00 k/uL Final Monocytes % Date Value Ref Range Status 03/28/2024 17.3 % Final Abs Waldo Date Value Ref Range Status 03/28/2024 0.85 <0.87 k/uL Final Abs Eosin Date Value Ref Range Status 03/28/2024 0.17 <0.46 k/uL Final Basophils % Date Value Ref Range Status 03/28/2024 0.6 % Final Abs Baso Date Value Ref Range Status 03/28/2024 0.03 <0.11 k/uL Final PATH: IMAGING: ASSESSMENT AND PLAN: Kingsley Jennings is a 88 year old year old male referred to us for high risk non muscle invasive bladder cancer. H/o CAD, HTN, DLD. PLAN: - He has high risk nonmuscle invasive bladder cancer. - Urologist recommended intravesical BCG treatments. - Proceed today with week one intravesical BCG, weekly x 6 treatments. - CT abdomen pelvis negative for distant metastasis. - Recent blood work is unremarkable. - Follow-up with the PCP for the back pain , chronic. - All his questions answered in detail - Follow-up in 3 weeks . Selena Donnelly APRN, SPORTS NUTRITIONIST-C, [facility] Provided at: [facility], [place], [place] CC: documented in this encounter [facility] 03-28-2024 Note HNO ID: [id number] Author: SELENA DONNELLY APRN.TREVER Service: ? Author Type: Nurse Practitioner Type: Progress Notes Filed: 03/28/2024 12:37 Note Text: PATIENT NAME: Kingsley Jennings [facility] NO.: [id number] ATTENDING PHYSICIAN: Jacek Cano MD DATE OF SERVICE: March 13, [address] Eusebia Galindo [address] [place] [id number] thank you for referring Kingsley Jennings for an opinion regarding bladder cancer. 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 Interval History: Patient here for consideration of week one of BCG. Patient was concerned about starting the BCG treatments with possible urinary tract infection. Patient denies any urinary symptoms. UA in the office today was negative. We will proceed with BCG. Patient's son is here with him today reviewed precautions and education for BCG. Overall patient is feeling well. No signs of infection. Will continue to monitor through his BCG treatments. CT abdomen pelvis noncontrast showed bladder wall thickening in February 2024 and a right bladder wall mass in December 2023. C/o back pain and insomnia. Underwent transurethral resection of bladder tumor measuring approx 4cm on 02/07/24. Underwent transurethral resection of bladder tumor measuring approx 3cm and deep bladder biopsies on 02/21/24. Urologist recommended intravesical BCG treatments. Current Outpatient Medications Medication Sig melatonin 10 mg tab Take 1 tablet by mouth daily at bedtime. polyethylene glycol 3350 (PURELAX) 17 gram packet Take 17 g by mouth once daily. Dissolve dose in 4 - 8 ounces of liquid and take as directed. psyllium (METAMUCIL FIBER SINGLES) 3.4 gram packet Take 1 Packet by mouth once daily. Docosahexanoic Acid-Eicosapent (FISH OIL) 120-180 mg capsule Take 2 g by mouth as needed (pt states he takes this off and on). pyridoxine, vitamin B6, (VITAMIN B-6) 25 mg tablet Take 25 mg by mouth once daily as needed (pt states he takes this off and on). mecobalamin (B12 ACTIVE ORAL) Take 1 tablet by mouth once daily as needed (pt states he takes this off and on). Vitamin E, dl, acetate, (VITAMIN E) 134 mg (200 unit) Capsule Take 200 Units by mouth once daily as needed (pt states he takes this off and on). Poibkzenarxqz-Xgtukgyc-Rccmqn (MULTIVITAMIN 50 PLUS) tab Take 1 tablet by mouth once daily as needed (pt states he takes this off and on). magnesium chloride 64 mg magnesium tab Take 1 tablet by mouth once daily as needed (pt states he takes this off and on). levothyroxine (SYNTHROID) 137 mcg tablet Take by mouth. aspirin, enteric coated (ASPIRIN, ENTERIC COATED) 81 mg EC tablet in the morning. amLODIPine (NORVASC) 2.5 mg tablet Take 2.5 mg by mouth. carvedilol (COREG) 3.125 mg tablet Take 6.25 mg by mouth. Cholecalciferol, Vitamin D3, 50 mcg (2,000 unit) cap Take 2,000 Int'l Units by mouth. diclofenac, EC, (VOLTAREN) 50 mg EC tablet Take 50 mg by mouth. isosorbide mononitrate ER (IMDUR) 30 mg 24 hr tablet Take 15 mg by mouth once daily. rosuvastatin (CRESTOR) 20 mg tablet Take 20 mg by mouth. tamsulosin (FLOMAX) 0.4 mg Take 0.8 mg by mouth once daily. triamcinolone acetonide (KENALOG) 0.1 % cream mupirocin (BACTROBAN) 2 % ointment APPLY 1 APPLICATION TOPICALLY TWICE A DAY FOR 5 DAYS (Patient not taking: Reported on 03/21/2024) No current facility-administered medications for this visit. 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 Social History Substance Use Topics Alcohol use: Not Currently Comment: denies alcohol use 01/15/2019 REVIEW OF SYSTEMS GENERAL: No weight loss, malaise or fevers. No night sweats. HEENT: Negative for headaches, No changes in hearing or vision, no nose bleeds or other nasal problems. RESPIRATORY: Negative for cough, wheezing and shortness of breath CARDIOVASCULAR: Negative for chest pain, leg swelling and palpitations GI: Negative for abdominal discomfort, blood in stools or black stools and change in bowel habits : Negative for dysuria, frequency and incontinence MUSCULOSKELETAL: Negative for joint pain or swelling, back pain, and muscle pain. SKIN: (more content not included)... [facility] 03-25-2024 Telephone encounter Note Called and spoke with pt's son and explained to him that we will check his urine prior to treatment on Sunday. Again pt's son states pt is not having any s/s of UTI and he was just checking his urine prior to his treatment. Liana Mcghee RN [facility] 03-25-2024 Miscellaneous Notes Called and spoke with pt's son and explained to him that we will check his urine prior to treatment on Sunday. Again pt's son states pt is not having any s/s of UTI and he was just checking his urine prior to his treatment. Liana Mcghee RN I added the Patient at 815 am on 03/28/24 before Treatment to the MA Schedule for the POC UA. ELÍAS Browning I signed. Thanks Discussed with Dr Cano and he would like to do a POC urine when pt is here for treatment on Sunday. AV/JR: Please sign pending orders. PSS: please add to POC schedule prior to treatment appointment. Liana Mcghee RN Order urine culture. Thanks Pt is due to start BCG treatments 03/28. Pt wanted to take a home urine test to see if he was positive for a UTI because the chemo ed information that he received states that treatment should not be given if pt has an active UTI. Pt's son calls stating his home test came back positive. Son states he doesn't think that pt cleaned himself off prior to the test, so he's not sure if it's contaminated or not. Per son, pt is not having s/s of UTI, just wanted to test since the information said not to do BCG treatment if active UTI. Please advise Liana Mcghee RN documented in this encounter [facility] 03-25-2024 Telephone encounter Note I added the Patient at 815 am on 03/28/24 before Treatment to the MA Schedule for the POC UA. ELÍAS Browning [facility] 03-25-2024 Telephone encounter Note I signed. Thanks [facility] Work Phone: 03-25-2024 Telephone encounter Note Discussed with Dr Cano and he would like to do a POC urine when pt is here for treatment on Sunday. AV/JR: Please sign pending orders. PSS: please add to POC schedule prior to treatment appointment. Liana Mcghee RN [facility] 03-25-2024 Telephone encounter Note Order urine culture. Thanks [facility] 03-25-2024 Telephone encounter Note Pt is due to start BCG treatments 03/28. Pt wanted to take a home urine test to see if he was positive for a UTI because the chemo ed information that he received states that treatment should not be given if pt has an active UTI. Pt's son calls stating his home test came back positive. Son states he doesn't think that pt cleaned himself off prior to the test, so he's not sure if it's contaminated or not. Per son, pt is not having s/s of UTI, just wanted to test since the information said not to do BCG treatment if active UTI. Please advise Liana Mcghee RN [facility] 03-21-2024 Note HNO ID: [id number] Author: LIANA MCGHEE RN Service: ? Author Type: Registered Nurse Type: Progress Notes Filed: 03/21/2024 10:03 Note Text: ONCOLOGY PATIENT EDUCATION NOTE TOPIC: Chemotherapy, Medications: BCG patient and son here today for education for treatment of Bladder Cancer Anticipated/Scheduled start date: 03/28/24 READINESS TO LEARN: COGNITIVE ABILITY: Alert and oriented MOTIVATION TO LEARN: Interested FAMILY SUPPORT: High - Very involved in pt care INSTRUCTION PROVIDED TO: Patient and Son INSTRUCTION PROVIDED BY: Nurse Coordinator PATIENT LEARNS BEST BY: Multiple Methods FACTORS AFFECTING LEARNING: None PHYSICAL LIMITATIONS AFFECTING LEARNING: None LEARNING RESPONSE METHOD OF INSTRUCTION: Written material, verbal education PATIENT/FAMILY RESPONSE: Verbalizes understanding of: CHEMOTHERAPY-Regimen, toxicity and side effects INFECTION MANAGEMENT-Signs and symptoms of an infection and importance of contacting the physician MEDICAL REGIMEN-Importance of following prescribed medical regimen MEDICATION PRESCRIBED-Accurate knowledge of prescribed medication prior to discharge MEDICATION ROUTE-Correct route for administration of the prescribed medication MEDICATION SIDE EFFECTS-Side effects associated with the medication that warrant a call to the physician PATIENT SAFETY PRINCIPLES SYMPTOM MANAGEMENT-Correct actions to take to manage symptoms associated with his/her disease/illness WORSENING CONDITION-Signs and symptoms of a worsening condition that warrant a call to the physician Information received as demonstrated by interest and questions FOLLOW UP PLAN: Patient instructed to call with any further issues Recommend - Recommend continued instruction and follow up as directed Follow up phone call. Contact information given. SUPPLEMENTAL MATERIAL: Written material was provided at this visit with the following information: - Chemotherapy education was provided by a pharmacist NO - Side effect management information was provided/discussed including but not limited to: abdominal discomfort, arthralgia, bowel habit changes, diet, electrolyte disturbances, fatigue, hypersensitivity reaction, infection, kidney toxicity, nausea/vomitting, neutropenia, rash, shortness of breath, skin changes, thrombocytopenia, bladder inflammation, hematuria, increased urinary frequency, malaise, fevers, unable to hold urine YES - Provided important phone numbers and contacts during and after hours. YES - Provided information on symptoms that require immediate assistance. YES - Provided Chemotherapy when to call handouts YES - Preventing infection. YES - Treatment schedule and confirmation of appointment times. YES - Available support groups. NA - The importance of contraception during the course of chemotherapy NA - Neutropenic fever protocol discussed with patient, which included the importance of reporting any fever of 100.4F (38.0C) or greater to the healthcare team as noted on the provided wallet card and/or magnet. YES - Cancer Wellness Program Pamphlet. YES - [employer] Information. YES - Patient services information. YES Time Spent: 40 minutes REFERRAL (RECOMMENDATION): N/A Liana Mcghee RN [facility] 03-21-2024 History of Presen t illness Narrative ONCOLOGY PATIENT EDUCATION NOTE TOPIC: Chemotherapy, Medications: BCG patient and son here today for education for treatment of Bladder Cancer Anticipated/Scheduled start date: 03/28/24 READINESS TO LEARN: COGNITIVE ABILITY: Alert and oriented MOTIVATION TO LEARN: Interested FAMILY SUPPORT: High - Very involved in pt care INSTRUCTION PROVIDED TO: Patient and Son INSTRUCTION PROVIDED BY: Nurse Coordinator PATIENT LEARNS BEST BY: Multiple Methods FACTORS AFFECTING LEARNING: None PHYSICAL LIMITATIONS AFFECTING LEARNING: None LEARNING RESPONSE METHOD OF INSTRUCTION: Written material, verbal education PATIENT/FAMILY RESPONSE: Verbalizes understanding of: CHEMOTHERAPY-Regimen, toxicity and side effects INFECTION MANAGEMENT-Signs and symptoms of an infection and importance of contacting the physician MEDICAL REGIMEN-Importance of following prescribed medical regimen MEDICATION PRESCRIBED-Accurate knowledge of prescribed medication prior to discharge MEDICATION ROUTE-Correct route for administration of the prescribed medication MEDICATION SIDE EFFECTS-Side effects associated with the medication that warrant a call to the physician PATIENT SAFETY PRINCIPLES SYMPTOM MANAGEMENT-Correct actions to take to manage symptoms associated with his/her disease/illness WORSENING CONDITION-Signs and symptoms of a worsening condition that warrant a call to the physician Information received as demonstrated by interest and questions FOLLOW UP PLAN: Patient instructed to call with any further issues Recommend - Recommend continued instruction and follow up as directed Follow up phone call. Contact information given. SUPPLEMENTAL MATERIAL: Written material was provided at this visit with the following information: - Chemotherapy education was provided by a pharmacist NO - Side effect management information was provided/discussed including but not limited to: abdominal discomfort, arthralgia, bowel habit changes, diet, electrolyte disturbances, fatigue, hypersensitivity reaction, infection, kidney toxicity, nausea/vomitting, neutropenia, rash, shortness of breath, skin changes, thrombocytopenia, bladder inflammation, hematuria, increased urinary frequency, malaise, fevers, unable to hold urine YES - Provided important phone numbers and contacts during and after hours. YES - Provided information on symptoms that require immediate assistance. YES - Provided Chemotherapy when to call handouts YES - Preventing infection. YES - Treatment schedule and confirmation of appointment times. YES - Available support groups. NA - The importance of contraception during the course of chemotherapy NA - Neutropenic fever protocol discussed with patient, which included the importance of reporting any fever of 100.4F (38.0C) or greater to the healthcare team as noted on the provided wallet card and/or magnet. YES - Cancer Wellness Program Pamphlet. YES - [employer] Information. YES - Patient services information. YES Time Spent: 40 minutes REFERRAL (RECOMMENDATION): N/A Liana Mcghee RN documented in this encounter [facility] 03-17-2024 Telephone encounter Note Patient has an appt on 03/28/24. Would you like labs, if so place orders. Bhargavi Montoya MA [facility] 03-17-2024 Miscellaneous Notes Patient has an appt on 03/28/24. Would you like labs, if so place orders. Bhargavi Montoya MA documented in this encounter [facility] 03-14-2024 History of Presen t illness Narrative Images from the original note were not included. PATIENT NAME: Kingsley Jennings CLINIC NO.: [id number] ATTENDING PHYSICIAN: Jacek Cano MD DATE OF SERVICE: March 13, [address] Eusebia Galindo [address] [place] [id number] thank you for referring Kingsley Jennings for an opinion regarding bladder cancer. 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 CT abdomen pelvis noncontrast showed bladder wall thickening in February 2024 and a right bladder wall mass in December 2023. C/o back pain and insomnia. Underwent transurethral resection of bladder tumor measuring approx 4cm on 02/07/24. Underwent transurethral resection of bladder tumor measuring approx 3cm and deep bladder biopsies on 02/21/24. Urologist recommended intravesical BCG treatments. Current Outpatient Medications Medication Sig amLODIPine (NORVASC) 2.5 mg tablet Take 2.5 mg by mouth. carvedilol (COREG) 3.125 mg tablet Take 6.25 mg by mouth. cefdinir (OMNICEF) 300 mg capsule TAKE 2 CAPSULES BY MOUTH ONCE A DAY FOR 10 DAYS cephALEXin (KEFLEX) 250 mg capsule Take 1 capsule by mouth every 12 hours. Cholecalciferol, Vitamin D3, 50 mcg (2,000 unit) cap Take 2,000 Int'l Units by mouth. ciprofloxacin HCl (CIPRO) 500 mg tablet TAKE 1 TAB THE DAY BEFORE PROCEDURE AND 1 TAB AFTER THE PROCEDURE diclofenac, EC, (VOLTAREN) 50 mg EC tablet Take 50 mg by mouth. isosorbide mononitrate ER (IMDUR) 30 mg 24 hr tablet Take by mouth. levoFLOXacin (LEVAQUIN) 750 mg tablet Take 1 tablet by mouth every afternoon. mupirocin (BACTROBAN) 2 % ointment APPLY 1 APPLICATION TOPICALLY TWICE A DAY FOR 5 DAYS phenazopyridine (PYRIDIUM) 200 mg tablet TAKE 1 TABLET BY MOUTH THREE TIMES A DAY AFTER MEALS FOR 2 DAYS rosuvastatin (CRESTOR) 20 mg tablet Take 20 mg by mouth. tamsulosin (FLOMAX) 0.4 mg Take 0.8 mg by mouth once daily. triamcinolone acetonide (KENALOG) 0.1 % cream APPLY TO AFFECTED AREA TWICE A DAY FOR 5 DAYS No current facility-administered medications for this visit. 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 Social History Substance Use Topics Alcohol use: Not Currently Comment: denies alcohol use 01/15/2019 REVIEW OF SYSTEMS GENERAL: No weight loss, malaise or fevers. No night sweats. HEENT: Negative for headaches, No changes in hearing or vision, no nose bleeds or other nasal problems. RESPIRATORY: Negative for cough, wheezing and shortness of breath CARDIOVASCULAR: Negative for chest pain, leg swelling and palpitations GI: Negative for abdominal discomfort, blood in stools or black stools and change in bowel habits : Negative for dysuria, frequency and incontinence MUSCULOSKELETAL: Negative for joint pain or swelling, back pain, and muscle pain. SKIN: Negative for lesions, rash, and itching. HEMATOLOGY/LYMPHOLOGY Negative for prolonged bleeding, bruising easily, and swollen nodes. NEURO: Negative for numbness or tingling of hands/feet. No weakness. PHYSICAL EXAMINATION: There were no vitals taken for this visit. There were no vitals taken for this visit. No data found for this vital: Wt General appearance:ECOG PERFORMANCE STATUS: 1- Restricted in physically strenuous activity. Carries out light duty. Patient in NAD. Skin: Skin color, texture, turgor normal. No rashes or lesions. Eyes: Anicteric sclera. Pupils are equally round and reactive to light. Extraocular movements are intact. Breast: No palpable breast masses. No nipple change or discharge. Lymph Nodes: No cervical, supraclavicular, axillary or inguinal adenopathy. Oropharynx: Lips, mucosa, and tongue normal. Back: No pain to percussion. Negative SLR test Lungs clear to auscultation, No wheezing or rhonchi Heart: RRR without murmur, gallop, or rubs. Abdomen soft, non-tender. No masses, organomegaly Extremities: No deformities. No edema Neuro: Gait and speech normal. Reflexes normal and symmetric. Muscular strength intact. Sensation grossly intact. Rectal: Deferred : Deferred LABS: No results found for: GLUC , K , NA , CHLOR , CO2 , CREAT , BUN , ANION , CA , TPROT , ALB , TBILI , ALKPHOS , AST , ALT No results found for: WBC , RBC , HB , HCT , MCV , MCH , MCHC , RDWCV , PLT , MPV , NEUT , ABSNEUT , LYMPHP , ABSLYMPH , MONOP , ABSMONO , EOSINP , ABSEOSIN , BASOP , ABSBASO PATH: IMAGING: ASSESSMENT AND PLAN: Kingsley Jennings is a 88 year old year old male referred to us for high risk non muscle invasive bladder cancer. H/o CAD, HTN, DLD. PLAN: - He has high risk nonmuscle invasive bladder cancer. - Urologist recommended intravesical BCG treatments. - We will schedule intravesical BCG weekly x 6 treatments. - CT abdomen pelvis negative for distant metastasis. - Recent blood work is unremarkable. - Follow-up with the PCP for the back pain , chronic. - All his questions answered in detail - Follow-up in [address] Eusebia Galindo [address] [place] [id number] thank you for allowing me to participate in Kingsley Jennings care, if there are any questions or concerns please do not hesitate to contact me at the number below. I spent a total of 60 minutes on the date of the service which included preparing to see the patient, ohdp-qe-rdlq patient care, completing clinical documentation, obtaining and/or reviewing separately obtained history, performing a medically appropriate examination, counseling and educating the patient/family/caregiver, ordering medications, tests, or procedures, communicating with other HCPs (not separately reported), independently interpreting results (not separately reported), communicating results to the patient/family/caregiver, and care coordination (not separately reported). Jacek Cano MD. Hematology/Medical Oncology [place] [phone] CC: documented in this encounter [facility] 03-14-2024 Instructions Jacek Cano MD - 03/14/2024 11:00 AM EDT Schedule intravesical BCG x 6 treatments F/u in 2 weeks documented in this encounter [facility] 03-14-2024 Note HNO ID: [id number] Author: JACEK CANO MD Service: ? Author Type: Physician Type: Progress Notes Filed: 03/14/2024 11:24 Note Text: PATIENT NAME: Kingsley Jennings [facility] NO.: [id number] ATTENDING PHYSICIAN: Jacek Cano MD DATE OF SERVICE: March 13, [address] [place] [id number] thank you for referring Kingsley Jennings for an opinion regarding bladder cancer. 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 CT abdomen pelvis noncontrast showed bladder wall thickening in February 2024 and a right bladder wall mass in December 2023. C/o back pain and insomnia. Underwent transurethral resection of bladder tumor measuring approx 4cm on 02/07/24. Underwent transurethral resection of bladder tumor measuring approx 3cm and deep bladder biopsies on 02/21/24. Urologist recommended intravesical BCG treatments. Current Outpatient Medications Medication Sig amLODIPine (NORVASC) 2.5 mg tablet Take 2.5 mg by mouth. carvedilol (COREG) 3.125 mg tablet Take 6.25 mg by mouth. cefdinir (OMNICEF) 300 mg capsule TAKE 2 CAPSULES BY MOUTH ONCE A DAY FOR 10 DAYS cephALEXin (KEFLEX) 250 mg capsule Take 1 capsule by mouth every 12 hours. Cholecalciferol, Vitamin D3, 50 mcg (2,000 unit) cap Take 2,000 Int'l Units by mouth. ciprofloxacin HCl (CIPRO) 500 mg tablet TAKE 1 TAB THE DAY BEFORE PROCEDURE AND 1 TAB AFTER THE PROCEDURE diclofenac, EC, (VOLTAREN) 50 mg EC tablet Take 50 mg by mouth. isosorbide mononitrate ER (IMDUR) 30 mg 24 hr tablet Take by mouth. levoFLOXacin (LEVAQUIN) 750 mg tablet Take 1 tablet by mouth every afternoon. mupirocin (BACTROBAN) 2 % ointment APPLY 1 APPLICATION TOPICALLY TWICE A DAY FOR 5 DAYS phenazopyridine (PYRIDIUM) 200 mg tablet TAKE 1 TABLET BY MOUTH THREE TIMES A DAY AFTER MEALS FOR 2 DAYS rosuvastatin (CRESTOR) 20 mg tablet Take 20 mg by mouth. tamsulosin (FLOMAX) 0.4 mg Take 0.8 mg by mouth once daily. triamcinolone acetonide (KENALOG) 0.1 % cream APPLY TO AFFECTED AREA TWICE A DAY FOR 5 DAYS No current facility-administered medications for this visit. 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 Social History Substance Use Topics Alcohol use: Not Currently Comment: denies alcohol use 01/15/2019 REVIEW OF SYSTEMS GENERAL: No weight loss, malaise or fevers. No night sweats. HEENT: Negative for headaches, No changes in hearing or vision, no nose bleeds or other nasal problems. RESPIRATORY: Negative for cough, wheezing and shortness of breath CARDIOVASCULAR: Negative for chest pain, leg swelling and palpitations GI: Negative for abdominal discomfort, blood in stools or black stools and change in bowel habits : Negative for dysuria, frequency and incontinence MUSCULOSKELETAL: Negative for joint pain or swelling, back pain, and muscle pain. SKIN: Negative for lesions, rash, and itching. HEMATOLOGY/LYMPHOLOGY Negative for prolonged bleeding, bruising easily, and swollen nodes. NEURO: Negative for numbness or tingling of hands/feet. No weakness. PHYSICAL EXAMINATION: There were no vitals taken for this visit. There were no vitals taken for this visit. No data found for this vital: Wt General appearance:ECOG PERFORMANCE STATUS: 1- Restricted in physically strenuous activity. Carries out light duty. Patient in NAD. Skin: Skin color, texture, turgor normal. No rashes or lesions. Eyes: Anicteric sclera. Pupils are equally round and reactive to light. Extraocular movements are intact. Breast: No palpable breast masses. No nipple change or discharge. Lymph Nodes: No cervical, supraclavicular, axillary or inguinal adenopathy. Oropharynx: Lips, mucosa, and tongue normal. Back: No pain to percussion. Negative SLR test Lungs clear to auscultation, No wheezing or rhonchi Heart: RRR without murmur, gallop, or rubs. Abdomen soft, non-tender. No masses, organomegaly Extremities: No deformities. No edema Neuro: Gait and speech normal. Reflexes normal and symmetric. Muscular strength intact. Sensation grossly intact. Rectal: Deferred : Deferred LABS: No (more content not included)... [facility] 02-29-2024 Hospital Discharg e instructions Patient Education 02/29/2024 12:55:27 Bladder Cancer Bladder Cancer Bladder cancer is [...] cells. Follow these instructions at home: Take nfnv-xnv-zijrivp and prescription medicines only as told by [...] is important. Where to find more information [employer] (ACS): cancer.org National Cancer [employer] (NCI): cancer.gov Contact a health care provider [...] provider. Document Revised: 04/10/2022 Document Reviewed: 04/10/2022 Thinkr Patient Education 2023 BDA. Follow Up Care 02/15/2024 11:46:36 With:MATEO DICK, Eusebia Beckman, URL Address: [address] [place] [id number]- When: Unknown [facility] 02-29-2024 Note Patient Education Oncology Bladder Cancer Bladder [...] Follow these instructions at home: ? Take ujjv-eae-smoyayj and prescription medicines only as told by [...] important. Where to find more information ? [employer] (ACS): cancer.org ? National Cancer [employer] (NCI): cancer.gov Contact a health care provider [...] discuss any q (more content not included)... [facility] 02-15-2024 Hospital Discharg e instructions Patient Education [...] cells. Follow these instructions at home: Take yajk-bxp-dpujcbd and prescription medicines only as told by [...] is important. Where to find more information [employer] (ACS): cancer.org National Cancer [employer] (NCI): cancer.gov Contact a health care provider [...] provider. Document Revised: 04/10/2022 Document Reviewed: 04/10/2022 Thinkr Patient Education 2023 BDA. Follow Up Care 01/15/2024 11:39:53 With:MATEO DICK, Eusebia Beckman, URL Address: [address] [place], [place] [id number]- When: Unknown [facility] 02-15-2024 Note Patient Education Oncology Bladder [...] Follow these instructions at home: ? Take zlkw-czs-zspxoij and prescription medicines only as told by [...] important. Where to find more information ? [employer] (ACS): cancer.org ? National Cancer [employer] (NCI): cancer.gov Contact a health care provider [...] discuss any q (more content not included)... [facility] 01-28-2024 Note Remains stable witho ut concerning symptoms [facility] 01-28-2024 Note Lipid abnormalities are well controlled Continue crestor [facility] 01-28-2024 Note Coronary artery dise ase is stable without any concerning symptoms Continue GDMT- ASA, coreg, crestor and imdur continue risk factor modifications- heart healthy diet, regular exercise as tolerated and continue all medications. [facility] 01-28-2024 Note Hypertension is well controlled currently. Continue coreg, norvasc, and imdur Renal function normal [facility] 01-28-2024 Note [facility] CARDIOLOGY PROGR ESS NOTE HPI: Kingsley Jennings is a 88 y.o. male here for [...] pain, SOB, palpitations, and lightheadedness/syncope. HPI: Kingsley Jennings is a 87 y.o. male With a [...] FINAL IMPRESSIONS: 1. 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 [facility] 01-28-2024 Note Pt is here for a six month follow up. Pt denies sob, chest pain, palpatiations. Pt had pre surgery testing done. Review of Systems Cardiovascular: Negative for leg swelling (L>R). Musculoskeletal: Positive for back pain. All other systems reviewed and are negative. [facility] 01-28-2024 Note RCRI= 2 points Class III Risk 10.1 % 30-day risk of , FL, or cardiac arrest From a cardiac perspective pt may proceed with planned surgery/urological procedure, he is a moderate risk for a moderate to high risk procedure. Prefer Aspirin to not be held, but if absolutely necessary may hold 5-7 days. Please monitor hemodynamics carefully and prevent any major fluid shifts. [facility] 01-15-2024 Evaluation + Plan note Extrac ariadna from: Title:Urology Progress Note Author:Andrey GALINDO MD Date:01/15/24 Impression and Plan Impression: #1. He has bladder tumors. These need to get resected. Plan: #1. He is getting scheduled for cystoscopy and TURBT under anesthesia. Future Appointments Appointment Date:02/15/2024 08:45:00 AM Scheduled Provider:Eusebia GALINDO MD Location:[facility] Appointment Type:URO Office Visit Future Scheduled Tests Laboratory* Urine Culture 12/31/23 [facility] 09-03-2024 Hospital Discharge instructions Patient [...] 100 degrees. Follow Up Care 12/31/2023 09:27:58 With:Eusebia GALINDO Address: [address] [place] [id number]- Business (1) When: Unknown Comments:Office will call to schedule follow up [facility] 09-03-2024 NoteProgress Note-Physician Patient: KINGSLEY JENNINGS Age: 88 years Sex: Male : 1935 Associated Diagnoses: None Author: MATEO DICK, Eusebia Phan X this gentleman has gross hematuria [...] list: All Problems Hypertension / SNOMED CT 8339556584 / Confirmed BPH with elevated PSA / SNOMED CT 158551902 / Confirmed Right inguinal hernia / SNOMED CT 465266472 / Confirmed Hypothyroidism / SNOMED CT 93046711 / Confirmed Arteriosclerotic heart disease (ASHD) / SNOMED CT 03035690 / Confirmed High cholesterol / SNOMED CT 38043214 / Confirmed Right groin pain / SNOMED CT 1136014057 / Confirmed Mixed hyperlipidemia / SNOMED CT 529715019 / Confirmed Hearing loss / SNOMED CT 37810368 / Confirmed Ischemic cardiomyopathy / SNOMED CT 918552027 / Confirmed BPH with obstruction/lower urinary tract symptoms / SNOMED CT 8169049646 / Confirmed Gross hematuria / SNOMED CT 422187706 / Confirmed Kidney stone / SNOMED CT 615106444 / Confirmed Bladder pain / SNOMED CT 1230736162 / Confirmed Histories Past Medical History: Resolved 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 Ischemic heart disease (5683368677): Resolved. Family History: Bilateral primary ovarian cancer Mother Procedure history: Colonoscopy (395662661) on 06/30/2009 at 73 Years. Cardiac catheterization (91560358). Coronary angioplasty (15157010). Repair of inguinal hernia (35803040). Comments: 01/15/2019 15:25 EDT - Rogelio Jha [...] scheduled for cystoscopy and [facility]URBT [facility]. [facility] Comment: Electronically Signed By: MATEO DICK, Eusebia Campos.sammy\Date and Time Signed: 01/15/24 11:18 EDT [...] if you have a fever over 100 degrees.[facility] 12-31-2023 Evaluation + Plan note Future Scheduled Tests Laboratory* Urine Culture 12/31/23 [facility] 08-13-2024 Evaluation + Plan note Diagnostic Tests Pending * Creatinine 12/25/23 [facility] 08-13-2024 Evaluation + Plan note Diagnostic Tests Pending * Urine Cytology ([facility]) 12/25/23 [facility] 08-13-2024 Hospital Discharge instructions Patient [...] including vitamins, herbs, eye drops, creams, and nape-bvp-erntulu medicines. Any problems you or family members [...] provider tells you to take them. Taking wocg-hoq-exhbadf medicines, vitamins, herbs, and supplements. Tests You [...] Follow these instructions at home: Medicines Take cozm-owy-ierpgyz and prescription medicines only as told by [...] provider. Document Revised: 01/11/2022 Document Reviewed: 12/10/2020 Thinkr Patient Education 2022 BDA. 12/25/2023 09:15:16 Hematuria, Adult Hematuria, Adult Hematuria [...] Follow these instructions at home: Medicines Take wnya-dnk-scsggtf and prescription medicines only as told by [...] or the blood stops without treatment. Take lpio-qpv-aemfxuj and prescription medicines only as told by your health care provider. Drink enough fluid to keep your urine pale yellow. This information is not intended to replace advice given to you by your health care provider. Make sure you discuss any questions you have with your health care provider. Document Revised: 12/29/2020 Document Reviewed: 12/29/2020 Thinkr Patient Education 2022 BDA. Follow Up Care 12/06/2023 14:27:33 With:JONNY BATEMAN, BRISA Jackson, URL Address: [address] [place] [address] [phone] When: Unknown [facility] 08-13-2024 NotePatient Education Urology Cystoscopy Cystoscopy [...] including vitamins, herbs, eye drops, creams, and tvsx-wft-zffejeg medicines. ? Any problems you or family [...] tells you to take them. ? Taking bnjg-zne-dubtyov medicines, vitamins, herbs, and supplements. Tests You [...] these instructions at home: Medicines ? Take shdg-ohj-jtxnagr and prescription medicines only as told by [...] your health care provider, (more content not included)...[facility] Chief Complaint: Patient here for 6 mo follow up CAD, hyperlipidemia, and hypertension. He started cutting isosorbide in half due to headaches. Denies chest pain, SOB, palpitations, and lightheadedness/syncope. HPI: Kingsley Jennings is a 87 y.o. male With a [...] FINAL IMPRESSIONS: 1. 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 Sharif in the [place] office in the next 2-4 weeks. 7. Follow up with Dr. Estes as scheduled. PROCEDURES: Ultrasound-guided access to the right common femoral artery, limited femoral angiography, bilateral selective coronary angiography, angiography of internal mammary artery graft, angiography of the saphenous vein graft, placement of a 6-Icelandic MynxGrip closure device. Echocardiogram 12/2021: Global left ventricular systolic function is normal; EF 55 to 60%. Mild biatrial dilatation. Mild to moderate tricuspid regurgitati (more content not included)...[facility]09-26-2023 [facility] Cardiology Clinic Note Chief Complaint: Patient here for 6 mo follow up CAD, hypertension, and hyperlipidemia. [facility], and [facility] PCP at the [facility] switched his statin to Crestor. He and his son aren't sure why since his numbers were great. Denies chest pain and SOB. C/o LLE pain with rest and ambulation. Said he had recent xrays and was diagnosed with arthritis. HPI: Kingsley Jennings is a 87 y.o. male With a [...] FINAL IMPRESSIONS: 1. 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 Sharif in the [place] office in the next 2-4 weeks. 7. Follow up with Dr. Estes as scheduled. PROCEDURES: Ultrasound-guided access to the right common femoral artery, limited femoral angiography, bilateral selective coronary angiography, angiography of internal mammary artery graft, angiography of the saphenous vein graft, placement of a 6-Icelandic MynxGrip closure device. Labs 09/18/2022: Total cholesterol 119, LDL 63, (more content not included)...[facility]01-10-2023 NotePROCEDURE: XR LSPINE MIN 4 VIEWS [...] Electronically authenticated by: MACY MICHAEL Date: 2022-05-23 08:14[facility]01-10-2023 NotePROCEDURE: XR HIP LT 2 3V [...] Electronically authenticated by: MACY MICHAEL Date: 2022-05-23 08:09[facility]08-19-2022 NoteMR#: [id number] [facility] Pt. Name: Kingsley Jennings Admitted: 12/28/2021 Discharged: 12/29/2021 Date of : [...] as bypass graft angiography. Coronary angiogram showed ekwok arteries left main is calcified but patent. [...] Jensen MD Date Trans: 12/30/2021 09:11 A/jeanne [id number] cc: Jennifer Estes M.D. [address], [facility] [id number] note Future Appointments Appointment Date:01/08/2024 08:30:00 AM Scheduled Provider: Location:[facility] Appointment Type:Urology CALL PAT FT Appointment Date:01/15/2024 10:45:00 AM Scheduled Provider: Location:[facility] Appointment Type:Urology FT Future Scheduled Tests Laboratory* Urine Culture 12/31/23 [facility] evaluation + Plan note Future Appointments Appointment Date:02/29/2024 11:00:00 AM Scheduled Provider:Eusebia GALINDO MD Location:[facility] Appointment Type:URO Office Visit Future Scheduled Tests Laboratory* Urine Culture 12/31/23 [facility] evaluation + Plan note Future Appointments Appointment Date:02/29/2024 11:00:00 AM Scheduled Provider:Eusebia GALINDO MD Location:[facility] Appointment Type:URO Office Visit Diagnostic Tests Pending * Urine Culture 02/18/24 Future Scheduled Tests Laboratory* Urine Culture 12/31/23 [facility] Evaluation + Plan note Future Appointments Appointment Date:06/03/2024 03:30:00 PM Scheduled Provider:Eusebia GALINDO MD Location:[facility] Appointment Type:URO Procedure 15 min Future Scheduled Tests Laboratory* Urine Culture 12/31/23 [facility] evaluation noteNo assessment information available [facility] Work Phone: Evaluation note* Diagnosis 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 [facility] Diagnosis Malignant neoplasm of urinary bladder, unspecified site (HCC)- Primary [facility] Diagnosis 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 [facility] Diagnosis 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 Urinary frequency [facility] Urinary frequency- Primary High risk medication use Encounter for long-term (current) use of other medications documented in this [facility] Malignant neoplasm of urinary bladder, unspecified site (HCC)- Primary [facility] Diagnosis 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 [facility] Diagnosis High risk medication use- Primary Encounter for long-term (current) use of other medications Urinary frequency Encounter for long-term (current) use of other medications [facility] Diagnosis Malignant neoplasm of urinary bladder, unspecified site (HCC)- Primary [facility] Diagnosis Malignant neoplasm of urinary bladder, unspecified site (HCC)- Primary Urinary frequency [facility] Diagnosis Malignant neoplasm of urinary bladder, unspecified site (HCC)- Primary documented in this encounter [facility] note* Diagnosis Malignant neoplasm of urinary bladder, unspecified site (HCC)- Primary documented in this encounter [facility] note* Diagnosis Malignant neoplasm of urinary bladder, unspecified site (HCC) Urinary frequency documented in this encounter [facility] note* Diagnosis Malignant neoplasm of urinary bladder, unspecified site (HCC)- Primary documented in this encounter [facility] note* Diagnosis Urinary frequency documented in this encounter [facility] note* Diagnosis Malignant neoplasm of urinary bladder, unspecified site (HCC)- Primary documented in this encounter [facility] note* Diagnosis Malignant neoplasm of urinary bladder, unspecified site (HCC)- Primary documented in this encounter [facility] note* Diagnosis Malignant neoplasm of urinary bladder, unspecified site (HCC)- Primary documented in this encounter [facility] note* Diagnosis Malignant neoplasm of urinary bladder, unspecified site (HCC)- Primary documented in this encounter [facility] note* Diagnosis Malignant neoplasm of urinary bladder, unspecified site (HCC)- Primary documented in this encounter [facility] note* Diagnosis Malignant neoplasm of urinary bladder, unspecified site (HCC)- Primary [facility] Narrative No data available for this section [facility] Hospital Discharge instructions No data available for this section [facility] Progress note No data available for this section [facility] Summary Purpose Family History No Family [...] and content) DATE CREATED AUTHOR 01/08/2022 [facility] DATE CREATED AUTHOR AUTHOR'S ORGANIZ ATION 08/06/2022 [facility] pital DATE CREATED AUTHOR AUTHOR'S ORGANIZ ATION 07/26/2023 [facility] DATE CREATED AUTHOR AUTHOR'S ORGANIZ ATION 01/28/2024 [facility] DATE CREATED AUTHOR AUTHOR'S ORGANIZ ATION 02/22/2024 [facility] DATE CREATED AUTHOR AUTHOR'S ORGANIZ ATION 03/15/2024 [facility] DATE CREATED AUTHOR AUTHOR'S ORGANIZ ATION 05/24/2024 [facility] DATE CREATED AUTHOR AUTHOR'S ORGANIZ ATION 05/26/2024 [facility] DATE CREATED AUTHOR AUTHOR'S ORGANIZ ATION 05/27/2024 [facility] DATE CREATED AUTHOR AUTHOR'S ORGANIZ ATION 06/05/2024 [facility] Patient Care team informatio n (unrecognized section and content) Team Status: Active Member Role Status Dates Eliseo Sales DO Attending Provider Active Sta rt: January 24, 2024 Team Status: Inactive Member Role Status Dates Eusebia Galindo MD Attending Provider Active St art: February 07, 2024 End: February 07, 2024 Team Status: Inactive Member Role Status Dates Eusebia Galindo MD Attending Provider Active St art: February 21, 2024 End: February 21, 2024 Freight Service Inspector Relationship Specialty Start Date End Date Eusebia Galindo MD [address] [place] [address] PCP - General Urology 03/03/24 Freight Service Inspector Relationship Specialty Start Date End Date Jennifer Estes MD [address] [facility] [place] [address] PCP - General Family Medicine 03/14/24 Freight Service Inspector Relationship Specialty Start Date End Date Jennifer Estes MD [address] [facility] [place] [address] PCP - General Family Medicine 03/14/24 Freight Service Inspector Relationship Specialty Start Date End Date Jennifer Estes MD [address] [facility] [place] [address] PCP - General Family Medicine 03/14/24 Liana Mcghee RN [address] [facility] [place] [address] Specialty Supervisor [employer] Hematology/Oncology 03/20/24 Jacek Cano MD [address] [facility] [place] [address] Physician Hematology/Oncology 03/20/24 Freight Service Inspector Relationship Specialty Start Date End Date Jennifer Estes MD [address] [facility] [place] [address] PCP - General Family Medicine 03/14/24 Liana Mcghee RN [address] [facility] [place] [address] Specialty Supervisor [employer] Hematology/Oncology 03/20/24 Jacek Cano MD [address] [facility] [place] [address] Physician Hematology/Oncology 03/20/24 Freight Service Inspector Relationship Specialty Start Date End Date Jennifer Estes MD [address] [facility] [place] [address] PCP - General Family Medicine 03/14/24 Liana Mcghee RN [address] [facility] [place] [address] Specialty Supervisor [employer] Hematology/Oncology 03/20/24 Jacek Cano MD [address] [facility] [place] [address] Physician Hematology/Oncology 03/20/24 Freight Service Inspector Relationship Specialty Start Date End Date Jennifer Estes MD [address] [facility] [place] [address] PCP - General Family Medicine 03/14/24 Liana Mcghee RN [address] [facility] [place] [address] Specialty Supervisor [employer] Hematology/Oncology 03/20/24 Jacek Cano MD [address] [facility] [place] [address] Physician Hematology/Oncology 03/20/24 Freight Service Inspector Relationship Specialty Start Date End Date Jennifer Estes MD [address] [facility] [place] [address] PCP - General Family Medicine 03/14/24 Liana Mcghee RN [address] [facility] [place] [address] Specialty Supervisor [employer] Hematology/Oncology 03/20/24 Jacek Cano MD [address] [facility] [place] [address] Physician Hematology/Oncology 03/20/24 Freight Service Inspector Relationship Specialty Start Date End Date Jennifer Estes MD [address] [facility] [place] [address] PCP - General Family Medicine 03/14/24 Liana Mcghee RN [address] [facility] [place] [address] Specialty Supervisor [employer] Hematology/Oncology 03/20/24 Jacek Cano MD [address] [facility] [address] Physician Hematology/Oncology 03/20/24 Freight Service Inspector Relationship Specialty Start Date End Date Jennifer Estes MD [address] [facility] [place] [address] PCP - General Family Medicine 03/14/24 Liana Mcghee RN [address] [facility] [place] [address] Specialty Supervisor [employer] Hematology/Oncology 03/20/24 Jacek Cano MD [address] [facility] [address] Physician Hematology/Oncology 03/20/24 Freight Service Inspector Relationship Specialty Start Date End Date Jennifer Estes MD [address] [facility] [place] [address] PCP - General Family Medicine 03/14/24 Liana Mcghee RN [address] [facility] [place] [address] Specialty Supervisor [employer] Hematology/Oncology 03/20/24 Jacek Cano MD [address] [facility] [place] [address] Physician Hematology/Oncology 03/20/24 Freight Service Inspector Relationship Specialty Start Date End Date Jennifer Estes MD [address] [facility] [place] [address] PCP - General Family Medicine 03/14/24 Liana Mcghee RN [address] [facility] [place] [address] Specialty Supervisor [employer] Hematology/Oncology 03/20/24 Jacek Cano MD [address] [facility] [address] Physician Hematology/Oncology 03/20/24 Freight Service Inspector Relationship Specialty Start Date End Date Jennifer Estes MD [address] [place] [address] PCP - General Family Medicine 03/14/24 Liana Mcghee RN [address] [facility] [place] [address] Specialty Supervisor [employer] Hematology/Oncology 03/20/24 Jacek Cano MD [address] [facility] [address] Physician Hematology/Oncology 03/20/24 Freight Service Inspector Relationship Specialty Start Date End Date Jennifer Estes MD [address] [facility] [place] [address] PCP - General Family Medicine 03/14/24 Liana Mcghee RN [address] [facility] [place] [address] Specialty Supervisor [employer] Hematology/Oncology 03/20/24 Jacek Cano MD [address] [facility] [address] Physician Hematology/Oncology 03/20/24 Freight Service Inspector Relationship Specialty Start Date End Date Jennifer Estes MD [address] [facility] [place] [address] PCP - General Family Medicine 03/14/24 Liana Mcghee RN [address] [facility] [place] [address] Specialty Supervisor [employer] Hematology/Oncology 03/20/24 Jacek Cano MD [address] [place] [address] Physician Hematology/Oncology 03/20/24 Freight Service Inspector Relationship Specialty Start Date End Date Jennifer Estes MD [address] [place] [address] PCP - General Family Medicine 03/14/24 Liana Mcghee RN [address] [facility] [place] [address] Specialty Supervisor [employer] Hematology/Oncology 03/20/24 Jacek Cano MD [address] [place] [address] Physician Hematology/Oncology 03/20/24 Freight Service Inspector Relationship Specialty Start Date End Date Jennifer Estes MD [address] [facility] [place] [address] PCP - General Family Medicine 03/14/24 Liana Mcghee RN [address] [facility] [address] Specialty Supervisor [employer] Hematology/Oncology 03/20/24 Jacek Cano MD [address] [place] [address] Physician Hematology/Oncology 03/20/24 Freight Service Inspector Relationship Specialty Start Date End Date Jennifer Estes MD [address] [facility] [place] [address] PCP - General Family Medicine 03/14/24 Liana Mcghee RN [address] [place] [address] Specialty Supervisor [employer] Hematology/Oncology 03/20/24 Jacek Cano MD [address] [place] [address] Physician Hematology/Oncology 03/20/24 Freight Service Inspector Relationship Specialty Start Date End Date Jennifer Estes MD [address] [place] [address] PCP - General Family Medicine 03/14/24 Liana Mcghee RN [address] [place] [address] Specialty Supervisor [employer] Hematology/Oncology 03/20/24 Jacek Cano MD [address] [place] [address] [place] [address] Physician Hematology/Oncology 03/20/24 Freight Service Inspector Relationship Specialty Start Date End Date Jennifer Estes MD [address] [place] [address] PCP - General Family Medicine 03/14/24 Liana Mcghee RN [address] [place] [address] Specialty Supervisor [employer] Hematology/Oncology 03/20/24 Jacek Cano MD [address] [place] [address] Physician Hematology/Oncology 03/20/24 Goals (unrecognized section and content) Goals may be documented in a n alternate section Source Comments (unrecognize d section and content) In the event this informatio n is protected by the Federal Confidentiality of Alcohol and Drug Abuse Patient Records regulations: The Federal rules restrict any use of the information to criminally investigate or prosecute any alcohol or drug abuse patient.Premier HealthIn the event this information is protected by the Federal Confidentiality of Alcohol and Drug Abuse Patient Records regulations: The Federal rules restrict any use of the information to criminally investigate or prosecute any alcohol or drug abuse patient.Premier HealthIn the event this information is protected by the Federal Confidentiality of Alcohol and Drug Abuse Patient Records regulations: The Federal rules restrict any use of the information to criminally investigate or prosecute any alcohol or drug abuse patient.Premier HealthIn the event this information is protected by the Federal Confidentiality of Alcohol and Drug Abuse Patient Records regulations: The Federal rules restrict any use of the information to criminally investigate or prosecute any alcohol or drug abuse patient.Premier HealthIn the event this information is protected by the Federal Confidentiality of Alcohol and Drug Abuse Patient Records regulations: The Federal rules restrict any use of the information to criminally investigate or prosecute any alcohol or drug abuse patient.Premier HealthIn the event this information is protected by the Federal Confidentiality of Alcohol and Drug Abuse Patient Records regulations: The Federal rules restrict any use of the information to criminally investigate or prosecute any alcohol or drug abuse patient.Premier HealthIn the event this information is protected by the Federal Confidentiality of Alcohol and Drug Abuse Patient Records regulations: The Federal rules restrict any use of the information to criminally investigate or prosecute any alcohol or drug abuse patient.Premier HealthIn the event this information is protected by the Federal Confidentiality of Alcohol and Drug Abuse Patient Records regulations: The Federal rules restrict any use of the information to criminally investigate or prosecute any alcohol or drug abuse patient.Premier HealthIn the event this information is protected by the Federal Confidentiality of Alcohol and Drug Abuse Patient Records regulations: The Federal rules restrict any use of the information to criminally investigate or prosecute any alcohol or drug abuse patient.Premier HealthIn the event this information is protected by the Federal Confidentiality of Alcohol and Drug Abuse Patient Records regulations: The Federal rules restrict any use of the information to criminally investigate or prosecute any alcohol or drug abuse patient.Premier HealthIn the event this information is protected by the Federal Confidentiality of Alcohol and Drug Abuse Patient Records regulations: The Federal rules restrict any use of the information to criminally investigate or prosecute any alcohol or drug abuse patient.Premier HealthIn the event this information is protected by the Federal Confidentiality of Alcohol and Drug Abuse Patient Records regulations: The Federal rules restrict any use of the information to criminally investigate or prosecute any alcohol or drug abuse patient.Premier HealthIn the event this information is protected by the Federal Confidentiality of Alcohol and Drug Abuse Patient Records regulations: The Federal rules restrict any use of the information to criminally investigate or prosecute any alcohol or drug abuse patient.Premier HealthIn the event this information is protected by the Federal Confidentiality of Alcohol and Drug Abuse Patient Records regulations: The Federal rules restrict any use of the information to criminally investigate or prosecute any alcohol or drug abuse patient.Premier HealthIn the event this information is protected by the Federal Confidentiality of Alcohol and Drug Abuse Patient Records regulations: The Federal rules restrict any use of the information to criminally investigate or prosecute any alcohol or drug abuse patient.Premier HealthIn the event this information is protected by the Federal Confidentiality of Alcohol and Drug Abuse Patient Records regulations: The Federal rules restrict any use of the information to criminally investigate or prosecute any alcohol or drug abuse patient.Premier HealthIn the event this information is protected by the Federal Confidentiality of Alcohol and Drug Abuse Patient Records regulations: The Federal rules restrict any use of the information to criminally investigate or prosecute any alcohol or drug abuse patient.Premier HealthIn the event this information is protected by the Federal Confidentiality of Alcohol and Drug Abuse Patient Records regulations: The Federal rules restrict any use of the information to criminally investigate or prosecute any alcohol or drug abuse patient.Premier HealthIn the event this information is protected by the Federal Confidentiality of Alcohol and Drug Abuse Patient Records regulations: The Federal rules restrict any use of the information to criminally investigate or prosecute any alcohol or drug abuse patient.Premier HealthIn the event this information is protected by the Federal Confidentiality of Alcohol and Drug Abuse Patient Records regulations: The Federal rules restrict any use of the information to criminally investigate or prosecute any alcohol or drug abuse patient.Premier HealthIn the event this information is protected by the Federal Confidentiality of Alcohol and Drug Abuse Patient Records regulations: The Federal rules restrict any use of the information to criminally investigate or prosecute any alcohol or drug abuse patient.Premier HealthIn the event this information is protected by the Federal Confidentiality of Alcohol and Drug Abuse Patient Records regulations: The Federal rules restrict any use of the information to criminally investigate or prosecute any alcohol or drug abuse patient.Premier HealthIn the event this information is protected by the Federal Confidentiality of Alcohol and Drug Abuse Patient Records regulations: The Federal rules restrict any use of the information to criminally investigate or prosecute any alcohol or drug abuse patient.Premier HealthIn the event this information is protected by the Federal Confidentiality of Alcohol and Drug Abuse Patient Records regulations: The Federal rules restrict any use of the information to criminally investigate or prosecute any alcohol or drug abuse patient.Premier HealthIn the event this information is protected by the Federal Confidentiality of Alcohol and Drug Abuse Patient Records regulations: The Federal rules restrict any use of the information to criminally investigate or prosecute any alcohol or drug abuse patient.Premier HealthIn the event this information is protected by the Federal Confidentiality of Alcohol and Drug Abuse Patient Records regulations: The Federal rules restrict any use of the information to criminally investigate or prosecute any alcohol or drug abuse patient.Premier HealthIn the event this information is protected by the Federal Confidentiality of Alcohol and Drug Abuse Patient Records regulations: The Federal rules restrict any use of the information to criminally investigate or prosecute any alcohol or drug abuse patient.[facility] Reason for Visit (unrecogniz ed section and content) Reason Comments First Time Treatment Education Reason Comments Care Coordination Positive home UTI te st result Specialty Diagnoses / Procedures Referred By Spencer linton Referred To Contact Diagnoses Malignant neoplasm of urinary bladder, unspecified site (HCC) Jacek Cano MD [address] [place] [address] Kyle Treat Lanny [address] [place] [address] Referral ID Status Reason Start Date Expiration Date V isits Requested Visits Authorized [id number] Authorized 03/17/2024 06/15/2024 99 99 Reason Comments Bladder Cancer Reason Comments Lab Orders Reason Comments Care Coordination C1D1 treatment follo w up call Reason Comments Care Coordination results Reason Comments Care Coordination Medication question FOR RECORDS PERTAINING TO PATIENTS WHO ARE [...] BE BASED ON THE PRIMARY CLINICAL RECORDS. [employer] provides no warranty or guarantee of the accuracy or completeness of information in this document.
--- NOTE | 2024-06-06 10:11 | XR_ITS ---
[address] [address] Patient Name: KINGSLEY JENNINGS MRN: [id number] date: 1935 Sex: M Assigned Patient Location: LAB Current Patient Location: Accession/Order Number: [id number] Exam Date: 06/06/2024 10:12 Report Date: 06/09/2024 14:46 At the request of: JENNIFER ESTES Procedure: XR lumbar spine min 4V EXAM: XR lumbar spine min 4V HISTORY: Lumbar Radiculopathy COMPARISON: None. FINDINGS/IMPRESSION: 1. No acute fracture or dislocation. 2. Moderate degeneration at the L5-S1 disc space. Mild degeneration of the other levels of the lumbar spine as well as the lower thoracic spine. 3. Atherosclerotic calcification of the abdominal aorta. 4. Moderate degeneration of the L4-5 and L5-S1 facet joints. 5. L5 pars defects. Electronically authenticated by: SCAR ESPITIA Date: 06/09/2024 14:46
== END 2024-06-06 09:45 | disposition home or self-care (01) ==
LOC: LAB 09:50
PROVIDERS: PCP Family Medicine; Visit Provider Family Medicine
DX: M54.16 Radiculopathy, lumbar region (principal); M51.369 Other intervertebral disc degeneration, lumbar region without mention of lumbar back pain or lower extremity pain
CPT/HCPCS: 72110

== ENCOUNTER 2024-07-15 15:47 | Observation (INO) | payer MEDICARE, OTHER, SELFPAY ==
[2024-07-15] VITALS (36 sets, daily range): BP systolic 122–200; BP diastolic 72–123; PULSE 56–86; TEMP 36.4–37; O2SAT 93–100; BMI 24.3; BMI 24.6
--- NOTE | 2024-07-15 16:04 | ECG_ITS ---
[facility] Test Date: 2024-07-15 Pat Name: KINGSLEY JENNINGS Department: Room: - Gender: Male [employer]en [employer]: : 1935 Requested By: Order Number: [id number] Reading MD: RONIT CALIXTO M.D. Measurements Intervals Olden Rate: 69 P: 52 AR: 200 QRS: -29 QRSD: 140 T: 37 QT: 400 QTc: 419 Interpretive Statements 1100 Sinus rhythm 2450 Right bundle branch block 3634 Inferior myocardial infarction, age undetermined 9150 abnormal ECG Compared to ECG 01/24/2024 08:48:17 Myocardial infarct finding now present Sinus bradycardia no longer present Electronically Signed On 07-16-2024 9:08:29 EST by RONIT CALIXTO M.D.
--- NOTE | 2024-07-15 16:05 | ED.GENADUL1 ---
Documented by User: YANG Youngblood 07/15/24 17:54 HPI HPI - General Adult General Chief complaint: Back Pain/Injury Stated complaint: Hypertension Time Seen by Provider: 07/15/24 15:58 Source: patient Mode of arrival: walk-in Limitations: no limitations History of Present Illness HPI narrative: Patient is an 88-year-old male who presents to the emergency department for an episode of feeling sweaty with sharp pain between his shoulder blades that occurred earlier today while at [facility]. He states the episode lasted about 20 minutes and has now resolved. He reports only minimal discomfort in the thoracic back. He states he has a history of an injury to the area and has had pain in this area before. He states the pain radiated up his neck. He has not had any headaches, visual changes, chest pain, shortness of breath, peripheral paresthesias. No syncope or falls. He states he noticed that his blood pressure was elevated which prompted him to come to the ER. He takes blood pressure medication but states his typical blood pressure runs anywhere from 100-130 systolic. He is hypertensive at 200/100 on arrival to the ER. Related Data Home Medications ?Medication ?Instructions ?Recorded ?Confirmed amlodipine 2.5 mg tablet 2.5 mg PO DAILY 01/24/24 07/15/24 aspirin 81 mg tablet,delayed 81 mg PO DAILY 01/24/24 07/15/24 release (Adult Aspirin Regimen) carvedilol 3.125 mg tablet 3.125 mg PO BID 01/24/24 07/15/24 diclofenac sodium 50 mg 50 mg PO Q12H 01/24/24 07/15/24 tablet,delayed release isosorbide mononitrate 30 mg 15 mg PO DAILY 01/24/24 07/15/24 tablet,extended release 24 hr levothyroxine 137 mcg capsule 68.5 mcg PO DAILY 01/24/24 07/15/24 rosuvastatin 20 mg sprinkle capsule 20 mg PO DAILY 01/24/24 07/15/24 tamsulosin 0.4 mg capsule (Flomax) 0.4 mg PO DAILY 01/24/24 07/15/24 Previous Rx's ?Medication ?Instructions ?Recorded lubricants topical gel 1 ea topical .as needed #113 grams 03/01/24 (Lubricating Jelly (with chlorhexidine) topical) tamsulosin 0.4 mg capsule (Flomax) 0.8 mg (2 x 0.4 mg) PO DAILY #20 03/01/24 caps Allergies Allergy/AdvReac Type Severity Reaction Status Date / Time No Known Drug Allergies Allergy Verified 07/15/24 15:50 Opioid HPI Opioid Management Most Recent Opioid Data: Last Pain Scale 6 03/01/24 12:53 03/01/24 Review of Systems ROS Constitutional Denies: fever or chills Ears, nose, mouth, and throat Denies: throat pain or nasal congestion Respiratory Denies: shortness of breath Gastrointestinal Denies: nausea or vomiting Musculoskeletal Reports: back pain; Denies: neck pain Integumentary/Breast Denies: rash Neurological Denies: headache, numbness in extremities or weakness in extremities Hematologic/Lymphatic Denies: easy bruising or easy bleeding PFSH [facility] Medical History (Updated 07/15/24 @ 17:53 by YANG Youngblood) Right bundle branch block ?I45.10 - Unspecified right bundle-branch block (ICD-10) BPH with obstruction/lower urinary tract symptoms ?N40.1 - Benign prostatic hyperplasia with lower urinary tract symptoms (ICD-10) ?N13.8 - Other obstructive and reflux uropathy (ICD-10) BPH with elevated PSA ?N40.0 - Benign prostatic hyperplasia without lower urinary tract symptoms (ICD-10) ?R97.20 - Elevated prostate specific antigen [PSA] (ICD-10) Hematuria ?R31.9 - Hematuria, unspecified (ICD-10) Urinary tract infection ?N39.0 - Urinary tract infection, site not specified (ICD-10) Bladder tumor ?D49.4 - Neoplasm of unspecified behavior of bladder (ICD-10) Hearing loss ?H91.90 - Unspecified hearing loss, unspecified ear (ICD-10) Back pain ?M54.9 - Dorsalgia, unspecified (ICD-10) Arthritis ?M19.90 - Unspecified osteoarthritis, unspecified site (ICD-10) High cholesterol ?E78.00 - Pure hypercholesterolemia, unspecified (ICD-10) Hypertension ?I10 - Essential (primary) hypertension (ICD-10) Coronary artery disease ?I25.10 - Atherosclerotic heart disease of [place] coronary artery without angina pectoris (ICD-10) Hypothyroidism ?E03.9 - Hypothyroidism, unspecified (ICD-10) Surgical History (Updated 01/24/24 @ 08:36 by Monika Ha NP) Hx of prostate biopsy ?Z98.890 - Other specified postprocedural states (ICD-10) History of heart artery stent ?Z95.5 - Presence of coronary angioplasty implant and graft (ICD-10) 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 - Presence of aortocoronary bypass graft (ICD-10) History of hernia repair ?Z98.890 - Other specified postprocedural states (ICD-10) ?Z87.19 - Personal history of other diseases of the digestive system (ICD-10) History of colonoscopy ?Z98.890 - Other specified postprocedural states (ICD-10) Family History (Updated 07/15/24 @ 20:45 by Fatuma Granger RN) Father Family history of CHF (congestive heart failure) Family history of heart disease Mother Family history of cancer Family history of ovarian cancer Daughter Family history of hypertension Son Family history of hypertension Other Family history of myocardial infarction Social History (Updated 07/15/24 @ 20:47 by Fatuma Granger RN) Within the past year, how often did you have a drink containing alcohol: never Score interpretation: A score less than 4 is consistent with normal alcohol consumption. Smoking status: Never smoker Non-prescribed substance use: denies use Highest level of school completed/degree received: Associate degree: academic program Are you now , , , , never or living with a partner: In a typical week, how many times do you talk on the telephone with family, friends, or neighbors: 3 or more times per week How often do you get together with friends or relatives: 3 or more times per week Little interest or pleasure in doing things: not at all Feeling down, depressed, or hopeless: not at all Do you think of yourself as: straight/heterosexual Gender Identity: male Exam Narrative Exam Narrative: Gen.: Awake, alert, in no distress Head: Normocephalic, atraumatic ENT: Moist mucous membranes Respiratory: No respiratory distress, lungs clear bilaterally Cardio: Regular rate and rhythm Back: Minimal tenderness of the mid thoracic spine and left paraspinal muscles of the left thoracic spine. No bony point tenderness or obvious deformity of the spine. Gastrointestinal: Abdomen is soft, nondistended and nontender to palpation Extremities: Moves extremities equally Psych: Normal mood and affect Neuro: No focal neuro deficit Skin: Warm, dry, intact Constitutional Vital Signs, click to edit/add: Last Vital Signs Temp 97.6 F 07/15/24 20:22 Pulse 58 L 07/15/24 20:22 Resp 18 07/15/24 20:22 BP 143/74 H 07/15/24 20:22 Pulse Ox 93 L 07/15/24 20:22 O2 Del Method Room Air 07/15/24 20:22 Course Vital Signs Vital signs: Vital Signs Temperature 98.6 F 07/15/24 15:50 Pulse Rate 65 07/15/24 15:50 Respiratory Rate 20 07/15/24 15:50 Blood Pressure 200/100 H 07/15/24 15:50 Pulse Oximetry 100 07/15/24 15:50 Oxygen Delivery Method Room Air 07/15/24 15:50 Temperature 97.6 F 07/15/24 20:22 Pulse Rate 58 L 07/15/24 20:22 Respiratory Rate 18 07/15/24 20:22 Blood Pressure 143/74 H 07/15/24 20:22 Pulse Oximetry 93 L 07/15/24 20:22 Oxygen Delivery Method Room Air 07/15/24 20:22 Medical Decision Making MDM Narrative Medical decision making narrative: Patient had no significant complaints of pain or nausea in the ER, he did feel slightly nauseous on returning from CT angio. Labs are unremarkable, initial troponin is normal and CT angio of the chest was performed for dissection. There is no evidence of thoracic aortic aneurysm or dissection. No PE. No pericardial effusion or mediastinal hematoma. I discussed the case with Dr. Melvin, the patient's PCP. Patient was given labetalol and Vasotec for blood pressure control. He is hemodynamically stable at this time with blood pressure improved. Given his age and breakthrough hypertension, he will be admitted to the hospital for further evaluation and treatment. Repeat troponin is pending SUPERVISED APC VISIT, PHYSICIAN ATTESTATION: Based on the medical record the care appears appropriate. ? Medical Records Medical records reviewed: Yes I reviewed the patient's medical records Lab Data Lab results reviewed: Yes I reviewed the patient's lab results Labs: Lab Results 07/15/24 07/15/24 Range/Units 16:10 17:23 WBC 5.7 (4.0-11.0) 10^3/uL RBC 4.36 L (4.70-6.10) 10^6/uL Hgb 14.2 (14.0-18.0) g/dL Hct 41.1 L (42.0-54.0) % MCV 94.3 H (80.0-94.0) fL MCH 32.6 (25.9-34.0) pg MCHC 34.5 (29.9-35.2) g/dL RDW 13.0 (11.0-15.0) % Plt Count 154 (150-450) 10^3/uL MPV 9.9 (9.5-13.5) fL Neut % (Auto) 56.3 (43.0-75.0) % Lymph % (Auto) 25.6 (20.5-60.0) % [place] % (Auto) 13.8 H (1.7-12.0) % Eos % (Auto) 3.4 (0.9-7.0) % Baso % (Auto) 0.7 (0.2-2.0) % Neut # (Auto) 3.2 (1.4-6.5) 10^3/uL Lymph # (Auto) 1.5 (1.2-3.8) 10^3/uL [place] # (Auto) 0.8 (0.3-0.8) 10^3/uL Eos # (Auto) 0.2 (0.0-0.7) 10^3/uL Baso # (Auto) 0.0 (0.0-0.1) 10^3/uL Abs Immat Gran (auto) 0.01 (0.00-0.03) 10^3/uL Imm/Tot Granulo (auto) 0.2 (0.0-0.5) % PT 11.0 (9.0-11.6) sec INR 1.04 Sodium 136 (136-145) mmol/L Potassium 4.3 (3.5-5.1) mmol/L Chloride 103 (98-107) mmol/L Carbon Dioxide 30.0 (21.0-32.0) mmol/L Anion Gap 7.3 BUN 21.0 H (7.0-18.0) mg/dL Creatinine 1.20 (0.70-1.30) mg/dL Est GFR ( Amer) >60 (>=60 mL/min/1.73m^2) Est GFR (Non-Af Amer) 57 L (>=60 mL/min/1.73m^2) BUN/Creatinine Ratio 17.5 Glucose 96 (74-106) mg/dL Calcium 10.0 (8.5-10.1) mg/dL Magnesium 2.1 (1.8-2.4) mg/dL Total Bilirubin 0.6 (0.2-1.0) mg/dL AST 27 (15-37) U/L ALT 42 (16-63) U/L Alkaline Phosphatase 76 (46-116) U/L Troponin I High Sens 16.9 23.8 (4.0-76.1) pg/mL NT-Pro-B Natriuret Pep 230.0 (<=1800.0) pg/mL Total Protein 6.9 (6.4-8.2) g/dL Albumin 3.8 (3.4-5.0) g/dL Globulin 3.1 g/dL Albumin/Globulin Ratio 1.[address] scan - chest: Attestation: I have reviewed the pertinent imaging results. ECG Data Attestation: I personally reviewed and interpreted this ECG as follows: (Normal sinus rhythm at a rate of 69, right bundle branch block which is stable to improved from previous EKG on 12/29/2021. EKG reviewed by attending physician) Discharge Plan Discharge Chief Complaint: Back Pain/Injury Clinical Impression: Hypertension, Acute thoracic back pain Patient Disposition: Admitted as Observation Time of Disposition Decision: 17:52 Condition: Good Discharge Date/Time: 07/15/24 19:50 Documented by User: Yusef Alvarez MD 07/15/24 20:55 HPI HPI - General Adult General Chief complaint: Back Pain/Injury Stated complaint: Hypertension Time Seen by Provider: 07/15/24 15:58 Related Data Home Medications ?Medication ?Instructions ?Recorded ?Confirmed amlodipine 2.5 mg tablet 2.5 mg PO DAILY 01/24/24 07/15/24 aspirin 81 mg tablet,delayed 81 mg PO DAILY 01/24/24 07/15/24 release (Adult Aspirin Regimen) carvedilol 3.125 mg tablet 3.125 mg PO BID 01/24/24 07/15/24 diclofenac sodium 50 mg 50 mg PO Q12H 01/24/24 07/15/24 tablet,delayed release isosorbide mononitrate 30 mg 15 mg PO DAILY 01/24/24 07/15/24 tablet,extended release 24 hr levothyroxine 137 mcg capsule 68.5 mcg PO DAILY 01/24/24 07/15/24 rosuvastatin 20 mg sprinkle capsule 20 mg PO DAILY 01/24/24 07/15/24 tamsulosin 0.4 mg capsule (Flomax) 0.4 mg PO DAILY 01/24/24 07/15/24 Previous Rx's ?Medication ?Instructions ?Recorded lubricants topical gel 1 ea topical .as needed #113 grams 03/01/24 (Lubricating Jelly (with chlorhexidine) topical) tamsulosin 0.4 mg capsule (Flomax) 0.8 mg (2 x 0.4 mg) PO DAILY #20 03/01/24 caps Allergies Allergy/AdvReac Type Severity Reaction Status Date / Time No Known Drug Allergies Allergy Verified 07/15/24 15:50 Opioid HPI Opioid Management Most Recent Opioid Data: Last Pain Scale 6 03/01/24 12:53 03/01/24 [facility] Medical History (Updated 07/15/24 @ 17:53 by YANG Youngblood) Right bundle branch block ?I45.10 - Unspecified right bundle-branch block (ICD-10) BPH with obstruction/lower urinary tract symptoms ?N40.1 - Benign prostatic hyperplasia with lower urinary tract symptoms (ICD-10) ?N13.8 - Other obstructive and reflux uropathy (ICD-10) BPH with elevated PSA ?N40.0 - Benign prostatic hyperplasia without lower urinary tract symptoms (ICD-10) ?R97.20 - Elevated prostate specific antigen [PSA] (ICD-10) Hematuria ?R31.9 - Hematuria, unspecified (ICD-10) Urinary tract infection ?N39.0 - Urinary tract infection, site not specified (ICD-10) Bladder tumor ?D49.4 - Neoplasm of unspecified behavior of bladder (ICD-10) Hearing loss ?H91.90 - Unspecified hearing loss, unspecified ear (ICD-10) Back pain ?M54.9 - Dorsalgia, unspecified (ICD-10) Arthritis ?M19.90 - Unspecified osteoarthritis, unspecified site (ICD-10) High cholesterol ?E78.00 - Pure hypercholesterolemia, unspecified (ICD-10) Hypertension ?I10 - Essential (primary) hypertension (ICD-10) Coronary artery disease ?I25.10 - Atherosclerotic heart disease of [place] coronary artery without angina pectoris (ICD-10) Hypothyroidism ?E03.9 - Hypothyroidism, unspecified (ICD-10) Surgical History (Updated 01/24/24 @ 08:36 by Monika Ha NP) Hx of prostate biopsy ?Z98.890 - Other specified postprocedural states (ICD-10) History of heart artery stent ?Z95.5 - Presence of coronary angioplasty implant and graft (ICD-10) 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 - Presence of aortocoronary bypass graft (ICD-10) History of hernia repair ?Z98.890 - Other specified postprocedural states (ICD-10) ?Z87.19 - Personal history of other diseases of the digestive system (ICD-10) History of colonoscopy ?Z98.890 - Other specified postprocedural states (ICD-10) Family History (Updated 07/15/24 @ 20:45 by Fatuma Granger RN) Father Family history of CHF (congestive heart failure) Family history of heart disease Mother Family history of cancer Family history of ovarian cancer Daughter Family history of hypertension Son Family history of hypertension Other Family history of myocardial infarction Social History (Updated 07/15/24 @ 20:47 by Fatuma Granger, KANDIS) Within the past year, how often did you have a drink containing alcohol: never Score interpretation: A score less than 4 is consistent with normal alcohol consumption. Smoking status: Never smoker Non-prescribed substance use: denies use Highest level of school completed/degree received: Associate degree: academic program Are you now , , , , never or living with a partner: In a typical week, how many times do you talk on the telephone with family, friends, or neighbors: 3 or more times per week How often do you get together with friends or relatives: 3 or more times per week Little interest or pleasure in doing things: not at all Feeling down, depressed, or hopeless: not at all Do you think of yourself as: straight/heterosexual Gender Identity: male Exam Constitutional Vital Signs, click to edit/add: Last Vital Signs Temp 97.6 F 07/15/24 20:22 Pulse 58 L 07/15/24 20:22 Resp 18 07/15/24 20:22 BP 143/74 H 07/15/24 20:22 Pulse Ox 93 L 07/15/24 20:22 O2 Del Method Room Air 07/15/24 20:22 Course Vital Signs Vital signs: Vital Signs Temperature 98.6 F 07/15/24 15:50 Pulse Rate 65 07/15/24 15:50 Respiratory Rate 20 07/15/24 15:50 Blood Pressure 200/100 H 07/15/24 15:50 Pulse Oximetry 100 07/15/24 15:50 Oxygen Delivery Method Room Air 07/15/24 15:50 Temperature 97.6 F 07/15/24 20:22 Pulse Rate 58 L 07/15/24 20:22 Respiratory Rate 18 07/15/24 20:22 Blood Pressure 143/74 H 07/15/24 20:22 Pulse Oximetry 93 L 07/15/24 20:22 Oxygen Delivery Method Room Air 07/15/24 20:22 Medical Decision Making MDM Narrative Medical decision making narrative: Patient had no significant complaints of pain or nausea in the ER, he did feel slightly nauseous on returning from CT angio. Labs are unremarkable, initial troponin is normal and CT angio of the chest was performed for dissection. There is no evidence of thoracic aortic aneurysm or dissection. No PE. No pericardial effusion or mediastinal hematoma. I discussed the case with Dr. Melvin, the patient's PCP. Patient was given labetalol and Vasotec for blood pressure control. He is hemodynamically stable at this time with blood pressure improved. Given his age and breakthrough hypertension, he will be admitted to the hospital for further evaluation and treatment. Repeat troponin is pending SUPERVISED APC VISIT, PHYSICIAN ATTESTATION: Based on the medical record the care appears appropriate. I, Dr Alvarez, have reviewed the above progress note and course of action in the ER; agree with the above. I have personally gone over history and physical, and discussed disposition and treatment plan with the PA. Lab Data Labs: Lab Results 07/15/24 07/15/24 Range/Units 16:10 17:23 WBC 5.7 (4.0-11.0) 10^3/uL RBC 4.36 L (4.70-6.10) 10^6/uL Hgb 14.2 (14.0-18.0) g/dL Hct 41.1 L (42.0-54.0) % MCV 94.3 H (80.0-94.0) fL MCH 32.6 (25.9-34.0) pg MCHC 34.5 (29.9-35.2) g/dL RDW 13.0 (11.0-15.0) % Plt Count 154 (150-450) 10^3/uL MPV 9.9 (9.5-13.5) fL Neut % (Auto) 56.3 (43.0-75.0) % Lymph % (Auto) 25.6 (20.5-60.0) % [place] % (Auto) 13.8 H (1.7-12.0) % Eos % (Auto) 3.4 (0.9-7.0) % Baso % (Auto) 0.7 (0.2-2.0) % Neut # (Auto) 3.2 (1.4-6.5) 10^3/uL Lymph # (Auto) 1.5 (1.2-3.8) 10^3/uL [place] # (Auto) 0.8 (0.3-0.8) 10^3/uL Eos # (Auto) 0.2 (0.0-0.7) 10^3/uL Baso # (Auto) 0.0 (0.0-0.1) 10^3/uL Abs Immat Gran (auto) 0.01 (0.00-0.03) 10^3/uL Imm/Tot Granulo (auto) 0.2 (0.0-0.5) % PT 11.0 (9.0-11.6) sec INR 1.04 Sodium 136 (136-145) mmol/L Potassium 4.3 (3.5-5.1) mmol/L Chloride 103 (98-107) mmol/L Carbon Dioxide 30.0 (21.0-32.0) mmol/L Anion Gap 7.3 BUN 21.0 H (7.0-18.0) mg/dL Creatinine 1.20 (0.70-1.30) mg/dL Est GFR ( Amer) >60 (>=60 mL/min/1.73m^2) Est GFR (Non-Af Amer) 57 L (>=60 mL/min/1.73m^2) BUN/Creatinine Ratio 17.5 Glucose 96 (74-106) mg/dL Calcium 10.0 (8.5-10.1) mg/dL Magnesium 2.1 (1.8-2.4) mg/dL Total Bilirubin 0.6 (0.2-1.0) mg/dL AST 27 (15-37) U/L ALT 42 (16-63) U/L Alkaline Phosphatase 76 (46-116) U/L Troponin I High Sens 16.9 23.8 (4.0-76.1) pg/mL NT-Pro-B Natriuret Pep 230.0 (<=1800.0) pg/mL Total Protein 6.9 (6.4-8.2) g/dL Albumin 3.8 (3.4-5.0) g/dL Globulin 3.1 g/dL Albumin/Globulin Ratio 1.2 Discharge Plan Discharge Chief Complaint: Back Pain/Injury Clinical Impression: Hypertension, Acute thoracic back pain Patient Disposition: Admitted as Observation Time of Disposition Decision: 17:52 Condition: Good Discharge Date/Time: 07/15/24 19:50
[2024-07-15 16:15] LABS: Basophils Percent Auto 0.7 % (0.2-2.0); Eosinophils Absolute Auto 0.2 10^3/uL (0.0-0.7); Eosinophils Percent Auto 3.4 % (0.9-7.0); Hematocrit 41.1 % (42.0-54.0); Hemoglobin 14.2 g/dL (14.0-18.0); Immature Granulocytes Abs Auto 0.01 10^3/uL (0.00-0.03); Immature Granulocytes Pct Auto 0.2 % (0.0-0.5); Lymphocytes Absolute Auto 1.5 10^3/uL (1.2-3.8); Lymphocytes Percent Auto 25.6 % (20.5-60.0); Mean Corpuscular HGB Conc 34.5 g/dL (29.9-35.2); Mean Corpuscular Hemoglobin 32.6 pg (25.9-34.0); Mean Corpuscular Volume 94.3 fL (80.0-94.0); Mean Platelet Volume 9.9 fL (9.5-13.5); Monocytes Absolute Auto 0.8 10^3/uL (0.3-0.8); Monocytes Percent Auto 13.8 % (1.7-12.0); Neutrophils Absolute Auto 3.2 10^3/uL (1.4-6.5); Neutrophils Percent Auto 56.3 % (43.0-75.0); Platelet Count 154 10^3/uL (150-450); Red Blood Count 4.36 10^6/uL (4.70-6.10); White Blood Count 5.7 10^3/uL (4.0-11.0)
[2024-07-15] MEDS: LABETALOL HCL 20 MG/4 ML SYRINGE 10 MG IVP (16:19)
[2024-07-15 16:30] LABS: INR 1.04
[2024-07-15 16:32] LABS: Alanine Aminotransferase 42 U/L (16-63); Albumin Globulin Ratio 1.2; Albumin Level 3.8 g/dL (3.4-5.0); Alkaline Phosphatase 76 U/L (46-116); Anion Gap 7.3; Aspartate Amino Transferase 27 U/L (15-37); BUN Creatinine Ratio 17.5; Bilirubin Total 0.6 mg/dL (0.2-1.0); Chloride 103 mmol/L (98-107); Estimated GFR (African America >60 (>=60 mL/min/1.73m^2); Estimated GFR (Non-African Ame 57 (>=60 mL/min/1.73m^2); Globulin 3.1 g/dL; Glucose 96 mg/dL (74-106); Potassium 4.3 mmol/L (3.5-5.1); Sodium 136 mmol/L (136-145); Total Protein 6.9 g/dL (6.4-8.2)
[2024-07-15 16:39] LABS: Troponin I High Sensitivity 16.9 pg/mL (4.0-76.1)
[2024-07-15] MEDS: ENALAPRILAT DIHYDRATE 1.25 MG/ML VIAL IV (16:40)
[2024-07-15 17:46] LABS: Troponin I High Sensitivity 23.8 pg/mL (4.0-76.1)
[2024-07-15 18:32] LABS: Magnesium 2.1 mg/dL (1.8-2.4)
--- OUTSIDE RECORDS SUMMARY | 2024-07-15 19:44 | XMS_ITS | CCD ---
Author Organization [facility] Care Team Providers Care Open Shank Coverer Name Role Phone ELTAHAWY, EHAB A Attending [...] Baeza Consulting Unavailable CK NIXON Consulting Unavailable HOY [...] Consulting Unavailable TOYA, DR VALLEJO Consulting Unavailable Ngozi, Jennifer Primary Care Physician ADÁN SHARIF Attending Unavailable ADÁN SHARIF Attending Unavailable VINH GUZMAN Attending Unavailable MD Eusebia Galindo Attending Provider Eusebia Galindo MD Primary Care Provider Jennifer Estes MD Primary Care Provider [phone] Eusebia Galindo Attending Unavailable Eusebia Galindo Admitting Unavailable Eusebia Galindo Attending Unavailable Eusebia Galindo Admitting Unavailable Taz MARQUIS, Liana Rosales Unavailable Jacek Cano MD Unavailable HOY, JENNIFER M Primary Care Unavailable [...] Unavailable HOY, JENNIFER M Primary Care Unavailable EUSEBIA GALINDO Referring Unavailable JACEK CANO Attending Unavailable HOY, JENNIFER M Primary Care Unavailable HOY, JENNIFER M Primary Care Unavailable HOY, JENNIFER M Primary Care Unavailable HOY, JENNIFER M Primary Care Unavailable ANDRZEJALONE Attending Unavailable HOY, JENNIFER M Primary Care Unavailable HOY, JENNIFER M Primary Care Unavailable HOY, JENNIFER M Primary Care Unavailable HOY, JENNIFER M Primary Care Unavailable HOY, JENNIFER M Primary Care Unavailable HOY, JENNIFER M Primary Care Unavailable Eusebia GALINDO Attending Unavailable Eusebia GALINDO Attending Unavailable Hamida Sanz Attending Unavailable GALINDO, Eusebia R Attending Unavailable GALINDO, Eusebia R Attending Unavailable GALINDO, REYNALDO Attending Unavailable GALINDO, Eusebia R Attending Unavailable GALINDO, Eusebia R Referring Unavailable GALINDO, Eusebia R Admitting Unavailable GALINDO, Eusebia R Admitting Unavailable GALINDO, Eusebia R Attending Unavailable JONNY, BRISA Jackson Admitting Unavailable JONNY, BRISA Jackson Attending Unavailable JONNY, BRISA Jackson Attending Unavailable GALINDO, Eusebia R Admitting Unavailable GALINDO, Eusebia R Attending Unavailable GALINDO, Eusebia R Attending Unavailable JONNY, BHAVANA Jackson Attending Unavailab Jennifer Acuna Referring Unavailable JONNY, BHAVANA Jackson Attending Unavailab Jennifer Acuna Referring Unavailable JONNY, BHAVANA Jackson Admitting Unavailab le JONNY, BHAVANA Jackson Attending Unavailab le Allergies Allergy Classification Reported Allergen(s) Allergy Type Date of Onset Reaction(s) Facility (6 sources) Adhesive bandage; Translations: [Adhesive Bandage] Drug allergy Blister (morphologic abnormality) [facility] (20 sources) Fluorouracil-Ad hesive Bandage; Translations: [FLUOROURACIL-A DHESIVE BANDAGE] Drug Allergy Other: See Comments [facility] (3 sources) No Known Medication Allergies; Translations: [No Known Medication Allergies] Propensity to adverse reactions (disorder) [facility] Repository Medications Current Medications Medication Drug Class(es) Dates Sig (Normalized) Sig (Original) amLODIPine 2.5 mg oral tablet (20 sources) Dihydropyridine Calcium Channel Allyson Start: 12-25-2023 amLODIPine (NORVASC) 2.5 mg tablet Take 2.5 mg by mouth. 12/25/2023 Active aspirin 81 mg oral tablet (20 sources) [...] sources) alpha-Adrenergic Allyson, beta-Adrenergic Allyson Start: 12-25-2023 carvedilol (COREG) 3.125 mg tablet Take 6.25 mg by mouth. 12/25/2023 Active cholecalciferol 0.05 mg oral capsule (20 sources) Vitamin D Start: 01-15-2019 Cholecalcifero l, Vitamin D3, 50 mcg (2,000 unit) cap Take 2,000 Int'l Units by mouth. 01/15/2019 Active Start: 01-15-2019 take 1 capsule by mo uth once daily cholecalciferol 2000 intl units oral capsule 2,000 International_Unit = 1 cap(s), Oral, Daily Start Date: 01/15/19 Status: Ordered diclofenac sodium 50 mg delayed release oral tablet (20 sources) Nonsteroidal Anti-inflammatory Drug Start: 12-25-2023 diclofenac, EC, (VOLTAREN) 50 mg EC tablet Take 50 mg by mouth. 12/25/2023 Active docosahexaenoic acid 120 mg / eicosapentaenoic acid [...] Date: 01/15/19 Status: Ordered polyethylene glycol 3350 12556 mg powder for oral solution (20 sources) [...] tablet (20 sources) HMG-CoA Reductase Inhibitor Start: rosuvastatin (CRESTOR) 20 mg tablet Take 20 mg by mouth. 12/25/2023 Active tamsulosin hydrochloride 0.4 mg oral capsule (20 sources) alpha-Adrenergic Allyson Start: take 1 capsule by mouth once daily [...] week(s), # 14 cap(s), Refills(s) 0, Pharmacy: [facility]/pharmacy #[id number], 178, cm, 02/15/24 8:37:00 EDT, Height/Length [...] months, # 8 tab(s), Refills(s) 0, [id number], cm, 05/22/24 9:41:00 EST, Height/Length [...] disease (20 sources) Atherosclerotic heart disease of [place] coronary artery without angina pectoris; Translations: [Angina [...] sources) Taking high risk medication; Translations: [Other terminal operator (current) drug therapy] 03-28-2024 Episodic Other aftercare (1 source) Patient encounter status; Translations: [Other penitentiary (current) drug therapy] 04-04-2024 Episodic Other diseases [...] te Episodic/Chronic Other aftercare (1 source) Other terminal operator (current) drug therapy; Translations: [OTH [facility] CURRENT DRUG THERAPY] Onset: 12-27-2021 Episodic Results Test Name Value Interpretation Reference Range Facility Reminderson 06-26-2024 Reminders Reminders From: Aylin George To: EU - Recalls Galindo; Sent: 06/26/2024 15:19:17 EST Show up: 10/12/2024 15:19:00 EDT Subject: cysto/needs fish./cytol Due Date/Time: 11/10/2024 15:19:00 EDT Reminder/Recall Patient needs cysto/fish/cytol in December 2024, 3 mo bt ck Normal [facility] Reminders Reminders From: Aylin George To: EU - Recalls Galindo; Sent: 05/22/2024 10:20:40 EST Show up: 06/14/2024 10:20:00 EST Subject: cysto/fish/cytol Due Date/Time: 07/07/2024 10:20:00 EST Reminder/Recall Patient needs cysto/fish/cytol in August 2024, 3 mo bt ck Patient sched for 09/16/24 at [facility]. He is getting BCG tx prior at cancer center.[facility] Normal [facility] UroVysion Fish and Urine Cyt o ([facility])on 01-29-2025 UVFISH & UC Diagnosis Info Invalid Interpretation Code [facility] Comment on above: Result Comment: A:Ur ine,Urine:Voided Diagnosis Summary - Occasional atypical urothelial cells with degenerative changes. Diagnosis Summary - The UroVysion FISH study detected normal copy numbers for chromosomes 3, 7, 17, and 9p21. 91 cells were analyzed in this evaluation. No evidence of aneuploidy for chromosomes 3, 7, or 17 or deletion of the 9p21 locus was found in cells present in this specimen. This test does not rule out the possibility of a low grade non-invasive papillary urothelial carcinoma. These findings should be correlated with cytology and cystoscopy results. * CPT: 25244, 53201. Microscopic Notes - Microscopic Notes - Abnormal cells 9p21 deletions: Abnormal cells aneploid events: Total cells analyzed: 91 Hematuria: Gross Description Site ID:A color Yellow fixative Alcohol Received 90 mls of clear yellow fluid with the patient's name and, Urine on the vial. Electronically signed by : on: 06/11/2024 09:20:04 Performed By: #### 1 [id number] #### [facility] [address] [place] [address] Ambulatory Visit Summaryon 0 06-03-2024 Ambulatory Visit Summary Ambulatory Visit Summary KINGSLEY JENNINGS :1935 Visit Date:06/03/2024 Ambulatory Visit Instructions Your Diagnosis Bladder cancer Urinary retention Kidney stone BPH with obstruction/lower urinary tract symptoms Elevated PSA Other obstructive and reflux uropathy Your Care Team Attending Physician - Eusebia [...] w/Cysto/FISH Cytol Where: [facility] [address] , [place] [address]- Medications What How Much When Instructions Unchanged [...] bladder wall (more content not included)... Normal [facility] UroVysion Fish and Urine Cyt o ([facility])on 06-03-2024 [facility] Method of Extraction Voided Normal [facility] Comment on above: Performed By: #### 1 [id number] #### [facility] [address] [id number] [facility] Number of Jars 1 Invalid Interpretation Code [facility] Comment on above: Performed By: #### 1 [id number] #### [facility] [address] [place] [address] [facility] Specimen Urine [facility] Comment on above: Performed By: #### 1 [id number] #### [facility] [address] [place] [address] [facility] Type of Service Technical Only Normal [facility] Comment on above: Performed By: #### 1 [id number] #### [facility] [address] [place] [address] Urology Office/Clinic Noteon 06-03-2024 Urology Office/Clinic Note [...] 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 Results reviewed with pt and his son in detail. Called and spoke with [facility] pathologist. Reviewed pathology slides and he confirmed [...] for infection. (more content not included)... Normal [facility] Comment on above: Result Comment: Elec tronically Signed By: MATEO DICK, Eusebia Beckman\.br\Date and Time Signed: 06/03/24 16:24 EST\.br\Electronically Co-Signed By: Mckenzie Balckburn.br\Date and Time Co-Signed: 06/03/24 16:20 EST CNOVSPon 05-23-2024 CNOVSP Visit (SP) Office ([place]) KINGSLEY JENNINGS ([id number]) 1935 M Date Time Provider Department 05/23/24 [...] Signed PATIENT NAME: Kingsley Jennings CLINIC NO.: [id number] ATTENDING PHYSICIAN: Jacek Cano MD DATE OF SERVICE: 05/23/[address] Eusebia Galindo [address] [place] [phone] thank you for referring Kingsley Jennings for [...] SCREENING HI (more content not included)... Normal [facility] Urology Office/Clinic Noteon 05-22-2024 Urology Office/Clinic Note [...] him to call if things worsen. Ordered: 16841 Measure Post Void residual urine and/or bladder capacity by US- non-imaging Urnls Dip Stick Auto w/o Microscopy POC 86469 Follow-up With When Contact Information Keep previously [...] influenza virus vaccine, inactivated 03/26/2023 Recorded SARSCoV2 mRNA(lskyuxlux-wrpf-yv cros) vac 09/16/2021 Recorded 2023-12-25: TPV80 SARS-CoV-2 [...] vaccine, in (more content not included)... Normal [facility] Comment on above: Result Comment: Elec tronically Signed By: JONNY BATEMAN, BRISA Jackson\.br\Date and Time Signed: 05/22/24 15:16 EST Christen 05-20-2024 TREVERN Telephone ([place]) KINGSLEY JENNINGS ([id number]) 1935 M Date Time Provider Department 05/20/24 LIANA MCGHEE HEMXENIA During your visit today, we recorded the following information about you: Liana Mcghee, RN 05/20/2024 9:11 AM Signed Pt calls [...] Fully Assessed Reason for Visit: Care Coordination [0997] Cmt: Medication question Prescriptions as of 05/20/2024 [...] Status:Closed by LIANA MCGHEE on 05/20/24 Normal [facility] Reminderson 05-20-2024 Reminders Reminders From: Aylin George To: EU - Recalls Galindo; Sent: 02/29/2024 15:19:27 EDT Show up: 03/14/2024 15:19:00 EDT Subject: cysto/fish/cytol Due Date/Time: 04/07/2024 15:19:00 EST Reminder/Recall Patient will need Cysto/FISH/cytol in May 2024 (1 month after BCG tx) Spoke to jonn lawton for 06/03/24 in [place] office. [facility] Christen 05-15-2024 RAYMON Telephone (KRIS) KINGSLEY JENNINGS ([id number]) 1935 M Date Time Provider Department 05/15/24 LIANA MCGHEE During your visit today, we recorded the following information about you: Liana Mcghee RN 05/15/2024 4:58 PM Signed Pt calling requesting results of urinalysis. Pt states he continues to have symptoms. Please advise KANDIS Sauer Adarsh, MD 05/16/2024 8:22 AM Signed I need urine culture results. Send cipro 500mg daily for 5 days. Thanks. Jacek Cano MD 05/16/2024 10:10 AM Signed I sent ciprofloxacin to pharmacy. Please tell him to take it. Thanks Liana Mcghee RN 05/16/2024 11:16 AM Signed Call placed to pt and due to the snow, he'd like this filled at his local pharmacy because our office is too far to drive. Script called to [facility] in [place]. A culture was not ordered. Per lab we cannot add a culture to this specimen. Is it ok for pt to get started on antibiotics since he's symptomatic and he's not able to come to the office due to the snow? Please advise KANDIS Sauer Adarsh, MD 05/16/2024 11:42 AM Signed Yes, ok to start antibiotics. Thanks Liana Mcghee RN 05/16/2024 3:10 PM Signed Pt planned on picking this up today and starting it. Liana Mcghee RN Allergies As of Date: 05/15/2024 Noted Allergy Reaction FLUOROURACIL-ADHESIVE BANDAGE 03/11/2024 14 - Other: See Comments Date Reviewed: 05/02/2024 Reviewed by: Hilaria Wilson MA - Fully Assessed Reason for Visit: Care Coordination [6886] Cmt: results Order(s):ciprofloxacin HCl (CIPRO) 250 mg [...] Encounter Status:Closed by LIANA MCGHEE on 05/16/24 [facility] Christen 05-12-2024 CNPN Telephone (HEMASA) KINGSLEY JENNINGS ([id number]) 1935 M Date Time Provider Department 05/12/24 [...] please add pt to lab schedule for 101 Thanks KANDIS Sauer Kristen 05/12/2024 9:45 AM [...] Reason for Visit: Care Coordination [3491] Cmt: Pain in bladder Primary Visit Diagnosis:Malignant neoplasm of urinary bladder, unspecified site (HCC) [C67.9] Order(s):URINALYSIS WITH MICROSCOPIC, REFLEX CULTURE [SQUACII] Order #: [id number] FUTURE Prescriptions as of 05/12/2024 - melatonin [...] Status:Closed by LIANA MCGHEE on 05/12/24 Normal [facility] Urinalysis complete panel (U )on 05-12-2024 Bacteria LM.HPF (Urine sed) [#/Area] Negative Normal Negative [facility] Comment on above: Order Comment: Speci men Type: URINE SPECIMENOrdering Facility: [facility] Address: [address] [place] [address] Performed By: #### 2 4356-8 ####[facility] [id number] [place] [address] [place] Bilirubin Ql (U) Negative Normal Negative [facility] Comment on above: Order Comment: Speci men Type: URINE SPECIMENOrdering Facility: [facility] Address: [address] [place] [address] Performed By: #### 2 4356-8 ####[facility] [id number] [place] [address] [place] Clarity (Unsp spec) Clear Normal Clear [facility] Comment on above: Order Comment: Speci men Type: URINE SPECIMENOrdering Facility: [facility] Address: [address] [place] [address] Performed By: #### 2 4356-8 ####[facility] [id number] [place] [address] [place] Color (U) Yellow Normal Yellow [facility] Comment on above: Order Comment: Speci men Type: URINE SPECIMENOrdering Facility: [facility] Address: [address] [place] [address] Performed By: #### 2 4356-8 ####[facility] [id number] [address] [place] Epithelial cells LM.HPF (Urine sed) [#/Area] None Seen Normal [facility] Comment on above: Order Comment: Speci men Type: URINE SPECIMENOrdering Facility: [facility] Address: [address] [place] [address] Performed By: #### 2 4356-8 ####[facility] [id number] [place] [address] [place] Glucose Test strip (U) [Mass/Vol] Negative Normal Negative [facility] Comment on above: Order Comment: Speci men Type: URINE SPECIMENOrdering Facility: [facility] Address: [address] [place] [address] Performed By: #### 2 4356-8 ####[facility] [id number] [place] [address] [place] Hemoglobin Ql (U) Negative Normal Negative [facility] Comment on above: Order Comment: Speci men Type: URINE SPECIMENOrdering Facility: [facility] Address: [address] [place] [address] Performed By: #### 2 4356-8 ####[facility] [id number] [place] [address] [place] Hyaline casts (Urine sed) [#/Area] 0 /[LPF] Normal 0 /LPF [facility] Comment on above: Order Comment: Speci men Type: URINE SPECIMENOrdering Facility: [facility] Address: [address] [place] [address] Performed By: #### 2 4356-8 ####[facility] [id number] [place] [address] [place] Ketones Ql (U) Negative Normal Negative [facility] Comment on above: Order Comment: Speci men Type: URINE SPECIMENOrdering Facility: [facility] Address: [address] [place] [address] Performed By: #### 2 4356-8 ####[facility] [id number] [place] [address] [place] Leukocyte esterase Test strip Ql (U) 1+ Abnormal Negative [facility] Comment on above: Order Comment: Speci men Type: URINE SPECIMENOrdering Facility: [facility] Address: [address] [place] [address] Performed By: #### 2 4356-8 ####[facility] [id number] [place] [address] [place] Nitrite Ql (U) Negative Normal Negative [facility] Comment on above: Order Comment: Speci men Type: URINE SPECIMENOrdering Facility: [facility] Address: [address] [place] [address] Performed By: #### 2 4356-8 ####[facility] [id number] [place] [address] [place] pH (U) 5.5 [pH] Normal <8.5 [facility] Comment on above: Order Comment: Speci men Type: URINE SPECIMENOrdering Facility: [facility] Address: [address] [place] [address] Performed By: #### 2 4356-8 ####[facility] [id number] [place] [address] [place] Protein (U) [Mass/Vol] Negative Normal Negative [facility] Comment on above: Order Comment: Speci men Type: URINE SPECIMENOrdering Facility: [facility] Address: [address] [place] [address] Performed By: #### 2 4356-8 ####[facility] [id number] [place] [address] [place] RBC LM.HPF (Urine sed) [#/Area] 0-2 /HPF Normal 0-2 /HPF [facility] Comment on above: Order Comment: Speci men Type: URINE SPECIMENOrdering Facility: [facility] Address: [address] [place] [address] Performed By: #### 2 4356-8 ####[facility] [id number] [place] [address] [place] Specific gravity (U) [Rel density] 1.013 Normal 1.005-1.030 [facility] Comment on above: Order Comment: Speci men Type: URINE SPECIMENOrdering Facility: [facility] Address: [address] [place] [address] Performed By: #### 2 4356-8 ####[facility] [id number] [place] [address] [place] Urobilinogen Ql (U) 0.2 EU/dL Normal 0.2-1.0 EU/dL [facility] Comment on above: Order Comment: Speci men Type: URINE SPECIMENOrdering Facility: [facility] Address: [address] [place] [address] Performed By: #### 2 4356-8 ####[facility] [id number] [place] [address] [place] WBC LM.HPF (Urine sed) [#/Area] 6-10 /HPF Abnormal 0-5 /HPF [facility] Comment on above: Order Comment: Speci men Type: URINE SPECIMENOrdering Facility: [facility] Address: [address] [place] [address] Performed By: #### 2 4356-8 ####[facility] [id number] [address] [address] [place] CBC W Auto Differential pane l (Bld)on 05-02-2024 Basophils (Bld) [#/Vol] 0.04 10*3/uL Normal <0.11 [facility] Comment on above: Order Comment: Speci men Type: BLOOD SPECIMENOrdering Facility: [facility] Address: [address] [place] [address] Performed By: #### 5 7021-8 ####[facility]CL[facility] [id number] [place] [address] Basophils/100 WBC (Bld) 0.8 % Normal [facility] Comment on above: Order Comment: Speci men Type: BLOOD SPECIMENOrdering Facility: [facility] Address: [address] [place] [address] Performed By: #### 5 7021-8 ####[facility] [id number] [place] [address] Differential cell count method Nom (Bld) Auto Normal [facility] Comment on above: Order Comment: Speci men Type: BLOOD SPECIMENOrdering Facility: [facility] Address: [address] [place] [address] Performed By: #### 5 7021-8 ####[facility] [id number] [place] [address] Eosinophils (Bld) [#/Vol] 0.19 10*3/uL Normal <0.46 [facility] Comment on above: Order Comment: Speci men Type: BLOOD SPECIMENOrdering Facility: [facility] Address: [address] [place] [address] Performed By: #### 5 7021-8 ####[facility] [id number] [place] [address] Eosinophils/100 WBC (Bld) 3.9 % Normal [facility] Comment on above: Order Comment: Speci men Type: BLOOD SPECIMENOrdering Facility: [facility] Address: [address] [place] [address] Performed By: #### 5 7021-8 ####[facility] [id number] [place] [address] Erythrocyte distribution width (RBC) [Ratio] 13.5 % Normal 11.5-15.0 [facility] Comment on above: Order Comment: Speci men Type: BLOOD SPECIMENOrdering Facility: [facility] Address: [address] [place] [address] Performed By: #### 5 7021-8 ####[facility] [id number] [place] [address] Hematocrit (Bld) [Volume fraction] 37.9 % Low 39.0-51.0 [facility] Comment on above: Order Comment: Speci men Type: BLOOD SPECIMENOrdering Facility: [facility] Address: [address] [place] [address] Performed By: #### 5 7021-8 ####[facility] [id number] [place] [address] Hemoglobin (Bld) [Mass/Vol] 12.8 g/dL Low 13.0-17.0 [facility] Comment on above: Order Comment: Speci men Type: BLOOD SPECIMENOrdering Facility: [facility] Address: [address] [place] [address] Performed By: #### 5 7021-8 ####[facility] [id number] [place] [address] Immature granulocytes (Bld) [#/Vol] 10*3/uL Normal <0.10 [facility] Comment on above: Order Comment: Speci men Type: BLOOD SPECIMENOrdering Facility: [facility] Address: [address] [place] [address] Performed By: #### 5 7021-8 ####[facility] [id number] [place] [address] Immature granulocytes/100 WBC (Bld) 0.2 % Normal [facility] Comment on above: Order Comment: Speci men Type: BLOOD SPECIMENOrdering Facility: [facility] Address: [address] [place] [address] Performed By: #### 5 7021-8 ####[facility] [id number] [place] [address] Lymphocytes (Bld) [#/Vol] 1.08 10*3/uL Normal 1.00-4.00 [facility] Comment on above: Order Comment: Speci men Type: BLOOD SPECIMENOrdering Facility: [facility] Address: [address] [place] [address] Performed By: #### 5 7021-8 ####[facility] [id number] [place] [address] Lymphocytes/100 WBC (Bld) 22.2 % Normal [facility] Comment on above: Order Comment: Speci men Type: BLOOD SPECIMENOrdering Facility: [facility] Address: [address] [place] [address] Performed By: #### 5 7021-8 ####[facility] [id number] [place] [address] MCH (RBC) [Entitic mass] 32.3 pg Normal 26.0-34.0 [facility] Comment on above: Order Comment: Speci men Type: BLOOD SPECIMENOrdering Facility: [facility] Address: [address] [place] [address] Performed By: #### 5 7021-8 ####[facility] [id number] [place] [address] MCHC (RBC) [Mass/Vol] 33.8 g/dL Normal 30.5-36.0 [facility] Comment on above: Order Comment: Speci men Type: BLOOD SPECIMENOrdering Facility: [facility] Address: [address] [place] [address] Performed By: #### 5 7021-8 ####[facility] [id number] [place] [address] MCV (RBC) [Entitic vol] 95.7 fL Normal 80.0-100.0 [facility] Comment on above: Order Comment: Speci men Type: BLOOD SPECIMENOrdering Facility: [facility] Address: [address] [place] [address] Performed By: #### 5 7021-8 ####[facility] LABCLIA [id number] [place] [address] Monocytes (Bld) [#/Vol] 0.67 10*3/uL Normal <0.87 [facility] Comment on above: Order Comment: Speci men Type: BLOOD SPECIMENOrdering Facility: [facility] Address: [address] [place] [address] Performed By: #### 5 7021-8 ####[facility] LABCLIA [id number] [place] [address] Monocytes/100 WBC (Bld) 13.8 % Normal [facility] Comment on above: Order Comment: Speci men Type: BLOOD SPECIMENOrdering Facility: [facility] Address: [address] [place] [address] Performed By: #### 5 7021-8 ####[facility] LABCLIA [id number] [place] [address] Neutrophils (Bld) [#/Vol] 2.88 10*3/uL Normal 1.45-7.50 [facility] Comment on above: Order Comment: Speci men Type: BLOOD SPECIMENOrdering Facility: [facility] Address: [address] [place] [address] Performed By: #### 5 7021-8 ####[facility] LABCLIA [id number] [place] [address] Neutrophils/100 WBC (Bld) 59.1 % Normal [facility] Comment on above: Order Comment: Speci men Type: BLOOD SPECIMENOrdering Facility: [facility] Address: [address] [place] [address] Performed By: #### 5 7021-8 ####[facility] LABCLIA [id number] [place] [address] Nucleated RBC (Bld) [#/Vol] 10*3/uL Normal <0.01 [facility] Comment on above: Order Comment: Speci men Type: BLOOD SPECIMENOrdering Facility: [facility] Address: [address] [place] [address] Performed By: #### 5 7021-8 ####[facility] LABCLIA [id number] [place] [address] Nucleated RBC/100 WBC (Bld) [Ratio] 0.0 /100 WBC Normal [facility] Comment on above: Order Comment: Speci men Type: BLOOD SPECIMENOrdering Facility: [facility] Address: [address] [place] [address] Performed By: #### 5 7021-8 ####[facility] LABCLIA [id number] [place] [address] Platelet mean volume (Bld) [Entitic vol] 9.6 fL Normal 9.0-12.7 [facility] Comment on above: Order Comment: Speci men Type: BLOOD SPECIMENOrdering Facility: [facility] Address: [address] [place] [address] Performed By: #### 5 7021-8 ####[facility] LABCLIA [id number] [place] [address] Platelets (Bld) [#/Vol] 148 10*3/uL Low 150-400 [facility] Comment on above: Order Comment: Speci men Type: BLOOD SPECIMENOrdering Facility: [facility] Address: [address] [place] [address] Performed By: #### 5 7021-8 ####[facility] LABCLIA [id number] [place] [address] RBC (Bld) [#/Vol] 3.96 10*6/uL Low 4.20-6.00 [facility] Comment on above: Order Comment: Speci men Type: BLOOD SPECIMENOrdering Facility: [facility] Address: [address] [place], [place] [address] Performed By: #### 5 7021-8 ####[facility] LABCLIA [id number] [place] [address] WBC (Bld) [#/Vol] 4.87 10*3/uL Normal 3.70-11.00 [facility] Comment on above: Order Comment: Speci men Type: BLOOD SPECIMENOrdering Facility: [facility] Address: [address] [place], [place] [address] Performed By: #### 5 7021-8 ####[facility] LABCLIA [id number] [place] [address] [facility] 05-02-2024 [facility] Nurse Visit (HEMASA) KINGSLEY JENNINGS ([id number]) 1935 M Date Time Provider Department 05/02/24 [...] site (HCC) [C67.9] Order(s):UA DIP, URINE (POC) [[id number]] Order #: [id number]. #:[id number] Prescriptions as of 05/02/2024 - melatonin 10 [...] Encounter Status:Closed by HILARIA WILSON on 05/02/24 [facility] CNOVSPon 05-02-2024 CNOVSP Visit (SP) Office (HEMASA) KINGSLEY JENNINGS ([id number]) 1935 M Date Time Provider Department 05/02/24 8:30 AM SELENA DONNELLY During your visit today, we recorded the following information about you: Temperature Pulse Respiration Blood pressure 97.2 degrees 55/minute 18/minute 143/68 Weight 75.2 kg Selena Donnelly APRN.COKE WORKER 05/02/2024 11:28 AM Signed PATIENT NAME: Kingsley Jennings CLINIC NO.: [id number] ATTENDING PHYSICIAN: Jacek Cano MD DATE OF SERVICE: May 02, [address] Eusebia Galindo [address] [place] [phone] thank you for referring Kingsley Jennings for [...] and shortnes (more content not included)... Normal [facility] Comprehensive metabolic 2000 panelon 05-02-2024 Albumin [Mass/Vol] 4.0 g/dL Normal 3.9-4.9 [facility] Comment on above: Order Comment: Speci men Type: BLOOD SPECIMENOrdering Facility: [facility] Address: [address] [place] [address] Performed By: #### 2 4323-8 ####[facility] LABCLIA [id number] [place] [address] ALP [Catalytic activity/Vol] 68 U/L Normal 38-113 [facility] Comment on above: Order Comment: Speci men Type: BLOOD SPECIMENOrdering Facility: [facility] Address: [address] [place] [address] Performed By: #### 2 4323-8 ####[facility] LABCLIA [id number] [place] [address] ALT [Catalytic activity/Vol] 27 U/L Normal 10-54 [facility] Comment on above: Order Comment: Speci men Type: BLOOD SPECIMENOrdering Facility: [facility] Address: [address] [place] [address] Performed By: #### 2 4323-8 ####[facility] LABCLIA [id number] [place] [address] Anion gap [Moles/Vol] 7 mmol/L Low 8-15 [facility] Comment on above: Order Comment: Speci men Type: BLOOD SPECIMENOrdering Facility: [facility] Address: [address] [place] [address] Performed By: #### 2 4323-8 ####[facility] LABCLIA [id number] [place] [address] AST [Catalytic activity/Vol] 24 U/L Normal 14-40 [facility] Comment on above: Order Comment: Speci men Type: BLOOD SPECIMENOrdering Facility: [facility] Address: [address] [place] [address] Performed By: #### 2 4323-8 ####[facility] LABCLIA [id number] [place] [address] Bilirubin [Mass/Vol] 0.6 mg/dL Normal 0.2-1.3 [facility] Comment on above: Order Comment: Speci men Type: BLOOD SPECIMENOrdering Facility: [facility] Address: [address] [place] [address] Performed By: #### 2 4323-8 ####[facility] LABCLIA [id number] [place] [address] Calcium [Mass/Vol] 10.2 mg/dL Normal 8.5-10.2 [facility] Comment on above: Order Comment: Speci men Type: BLOOD SPECIMENOrdering Facility: [facility] Address: [address] [place] [address] Performed By: #### 2 4323-8 ####[facility] LABCLIA [id number] [place] [address] Chloride [Moles/Vol] 106 mmol/L Normal 98-107 [facility] Comment on above: Order Comment: Speci men Type: BLOOD SPECIMENOrdering Facility: [facility] Address: [address] [place] [address] Performed By: #### 2 4323-8 ####[facility] LABCLIA [id number] [place] [address] CO2 [Moles/Vol] 26 mmol/L Normal 22-30 [facility] Comment on above: Order Comment: Speci men Type: BLOOD SPECIMENOrdering Facility: [facility] Address: [address] [place] [address] Performed By: #### 2 4323-8 ####[facility] LABCLIA [id number] [place] [address] Creatinine [Mass/Vol] 0.99 mg/dL Normal 0.73-1.22 [facility] Comment on above: Order Comment: Speci men Type: BLOOD SPECIMENOrdering Facility: [facility] Address: [address] [place] [address] Performed By: #### 2 4323-8 ####[facility] LABCLIA [id number] [place] [address] Creatinine and Glomerular filtration rate.predicted panel (S/P/Bld) 73 mL/min/1.73m??? Normal >=60 [facility] Comment on above: Order Comment: Speci men Type: BLOOD SPECIMENOrdering Facility: [facility] Address: [address] [place] [address] Result Comment: Lorin mated Glomerular Filtration Rate [...] actual GFR. Performed By: #### 2 4323-8 ####[facility] LABCLIA [id number] [place] [address] Glucose [Mass/Vol] 86 mg/dL Normal 74-99 [facility] Comment on above: Order Comment: Speci men Type: BLOOD SPECIMENOrdering Facility: [facility] Address: [address] [place] [address] Result Comment: The [place] Diabetes Association (ADA) provides guidance for cutoff [...] Standards of Medical Care in Diabetes 2016, [place] [employer]. Diabetes Care. 2016.39(Suppl 1). Performed By: #### 2 4323-8 ####[facility] LABCLIA [id number] [place] [address] Potassium [Moles/Vol] 4.5 mmol/L Normal 3.7-5.1 [facility] Comment on above: Order Comment: Speci men Type: BLOOD SPECIMENOrdering Facility: [facility] Address: [address] [place] [address] Performed By: #### 2 4323-8 ####[facility] LABCLIA [id number] [place] [address] Protein [Mass/Vol] 5.8 g/dL Low 6.3-8.0 [facility] Comment on above: Order Comment: Speci men Type: BLOOD SPECIMENOrdering Facility: [facility] Address: [address] [place] [address] Performed By: #### 2 4323-8 ####[facility] LABCLIA [id number] [place] [address] Sodium [Moles/Vol] 139 mmol/L Normal 136-144 [facility] Comment on above: Order Comment: Speci men Type: BLOOD SPECIMENOrdering Facility: [facility] Address: [address] [place] [address] Performed By: #### 2 4323-8 ####[facility] LABCLIA [id number] [place] [address] Urea nitrogen [Mass/Vol] 18 mg/dL Normal 9-24 [facility] Comment on above: Order Comment: Speci men Type: BLOOD SPECIMENOrdering Facility: [facility] Address: [address] [place] [address] Performed By: #### 2 4323-8 ####[facility] LABCLIA [id number] [place] [address] UA DIP, URINE (POC)on 2023 BILIRUBIN UA (POCT) Negative Negative [facility] CLARITY UA (POCT) Cloudy [facility] COLOR UA (POCT) Yellow [facility] GLUCOSE UA (POCT) Negative Negative mg/dL [facility] Hemoglobin Ql (U) Trace-intact Abnormal Negative [facility] Interpretation and review of laboratory results Abnormal [facility] KETONE UA (POCT) Negative Negative mg/dL [facility] LEUKOCYTES UA (POCT) Small Abnormal Negative [facility] NITRITE UA (POCT) Negative Negative [facility] PH UA (POCT) 5.5 4.5 - 8.0 [facility] Protein Ql (U) Negative Negative mg/dL [facility] SPECIFIC GRAVITY UA (POCT) 1.020 1.005 - 1.030 [facility] UROBILINOGEN UA (POCT) 0.2 Normal E.U./dL [facility] Location:[facility], [address] [place] [address] Dr. [place], [place], [address] [facility] POINT OF CARE [facility] 04-28-2024 [facility] Telephone (HEMASA) KINGSLEY JENNINGS ([id number]) 1935 M Date Time Provider Department 04/28/24 SELENA DONNELLY During your visit today, we recorded the following information about you: Brianna Landaverde MA 04/28/2024 1:[address] labs for appt on 05/02 if needed. 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 Bhargavi Montoya MA Allergies As of Date: 04/25/2024 Noted Allergy Reaction FLUOROURACIL-ADHESIVE BANDAGE 03/11/2024 14 - Other: See Comments Date Reviewed: 04/11/2024 Reviewed by: Selena Donnelly APRN.COKE WORKER - Fully Assessed Visit Diagnosis:Urinary frequency [R35.0] Order(s):UA DIP, URINE (POC) [[id number]] Order #: [id number]. #:[id number] Prescriptions as of 04/25/2024 - melatonin 10 [...] Status:Closed by BHARGAVI MONTOYA on 04/25/24 Normal [facility] UA DIP, URINE (POC)on 2023 BILIRUBIN UA (POCT) Negative Negative [facility] CLARITY UA (POCT) Cloudy [facility] COLOR UA (POCT) Other [facility] GLUCOSE UA (POCT) Negative Negative mg/dL [facility] Hemoglobin Ql (U) Negative Negative [facility] Interpretation and review of laboratory results Abnormal [facility] KETONE UA (POCT) Negative Negative mg/dL [facility] LEUKOCYTES UA (POCT) Small Abnormal Negative [facility] NITRITE UA (POCT) Negative Negative [facility] PH UA (POCT) 5.5 4.5 - 8.0 [facility] Protein Ql (U) Negative Negative mg/dL [facility] SPECIFIC GRAVITY UA (POCT) 1.020 1.005 - 1.030 [facility] UROBILINOGEN UA (POCT) 0.2 Normal E.U./dL [facility] Location:[facility], [address] [place] [address] , [place], [place], [address] [facility] POINT OF CARE [facility] CNNURSEon 04-18-2024 [facility] Nurse Visit (HEMASA) KINGSLEY JENNINGS ([id number]) 1935 M Date Time Provider Department 04/18/24 9:00 AM LIZBET NURSE KYLE PONCE During your visit today, we recorded the following information about you: Hilaria Wilson MA 04/18/2024 8:58 AM Signed UA performed as ordered. 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 #:[id number] Prescriptions as of 04/18/2024 - melatonin 10 [...] Status:Closed by HILARIA WILSON on 04/18/24 Normal [facility] UA DIP, URINE (POC)on 2023 BILIRUBIN UA (POCT) Negative Negative [facility] CLARITY UA (POCT) Clear [facility] COLOR UA (POCT) Yellow [facility] GLUCOSE UA (POCT) Negative Negative mg/dL [facility] Hemoglobin Ql (U) Trace-intact Abnormal Negative [facility] Interpretation and review of laboratory results Abnormal [facility] KETONE UA (POCT) Negative Negative mg/dL [facility] LEUKOCYTES UA (POCT) Small Abnormal Negative [facility] NITRITE UA (POCT) Negative Negative [facility] PH UA (POCT) 5.5 4.5 - 8.0 [facility] Protein Ql (U) Negative Negative mg/dL [facility] SPECIFIC GRAVITY UA (POCT) 1.020 1.005 - 1.030 [facility] UROBILINOGEN UA (POCT) 0.2 Normal E.U./dL [facility] Location:[facility], [address] [place] [address] , [place], [place], [id number] [place] [address] POINT OF CARE [facility]-11[facility]20[facility] ([facility] KINGSLEY JENNINGS ([id number]) 1935 M Date Time Provider Department 04/11/24 [...] Diagnosis:Urinary frequency [R35.0] Order(s):UA DIP, URINE (POC) [[id number]] Order #: [id number]. #:[id number] Prescriptions as of 04/11/2024 - melatonin 10 [...] Status: Signed UA performed as ordered. Bhargavi Mnotoya MA Encounter Status:Closed by BHARGAVI MONTOYA on 04/11/24 [facility] CNOVSPon 04-11-2024 CNOVSP Visit (SP) Office (HEMASA) KINGSLEY JENNINGS ([id number]) 1935 M Date Time Provider Department 04/11/24 8:30 AM SELENA DONNELLY During your visit today, we recorded the following information about you: Temperature Pulse Respiration Blood pressure 97.8 degrees 56/minute 18/minute 176/87 Weight Height 75.2 kg 1.753 m Selena Donnelly APRN.CNP 04/11/2024 10:34 AM Signed PATIENT NAME: Kingsley Jennings CLINIC NO.: [id number] ATTENDING PHYSICIAN: Jacek Cano MD DATE OF SERVICE: April 11, [address] Eusebia Galindo [address] [place] [address] thank you for referring Kingsley Jennings for [...] no nos (more content not included)... Normal [facility] UA DIP, URINE (POC)on 2023 BILIRUBIN UA (POCT) Negative Negative [facility] CLARITY UA (POCT) Slightly Cloudy Cl [facility] COLOR UA (POCT) Other [facility] GLUCOSE UA (POCT) Negative Negative mg/dL [facility] Hemoglobin Ql (U) Trace-intact Abnormal Negative [facility] Interpretation and review of laboratory results Abnormal [facility] KETONE UA (POCT) Negative Negative mg/dL [facility] LEUKOCYTES UA (POCT) Small Abnormal Negative [facility] NITRITE UA (POCT) Negative Negative [facility] PH UA (POCT) 5.5 4.5 - 8.0 [facility] Protein Ql (U) Negative Negative mg/dL [facility] SPECIFIC GRAVITY UA (POCT) 1.020 1.005 - 1.030 [facility] UROBILINOGEN UA (POCT) 0.2 Normal E.U./dL [facility] Location:[facility], [address] [place] [address] , [place], [place], [address] [place] [address] POINT OF CARE [facility] Bacteria Ur Culton 4 Bacteria identified Cx Nom (U) ORGANISM ID: 1 <10,000 CFU/ml Enterococcus faecalis Insignificant colony count. No further workup. Cephalosporins, clindamycin, and TMP-SMX are not effective for the treatment of enterococcal infections. Normal [facility] Comment on above: Performed By: #### 6 30-4 ####[facility] LABCLIA [id number] [address] [facility] CNNURSEon 04-04-2024 [facility] Nurse Visit (HEMASA) KINGSLEY JENNINGS ([id number]) 1935 M Date Time Provider Department 04/04/24 9:00 AM LIZBET NURSE KYLE PONCE During your visit today, we recorded the following information about you: Hilaria Wilson MA 04/04/2024 8:45 AM Signed UA performed as ordered. Hilaria Wilson MA Allergies As of Date: 04/04/2024 Noted Allergy Reaction FLUOROURACIL-ADHESIVE BANDAGE 03/11/2024 14 - Other: See Comments Date Reviewed: 04/04/2024 Reviewed by: Ladonna De León PA-C - Fully Assessed Reason for Visit: Bladder Cancer [515] Primary Visit Diagnosis:High risk medication use [Z79.899] Other Visit Diagnoses:Urinary frequency [R35.0] Encounter for long-term (current) use of other medications [Z79.899] Order(s):UA DIP, URINE (POC) [[id number]] Order #: [id number]. #:[id number] Prescriptions as of 04/04/2024 - melatonin 10 [...] Visit Notes: >> Hilaria Wilson MA SunApr 04, 2024 8:44 AM Status: Signed UA performed as ordered. Hilaria Wilson MA Encounter Status:Closed by HILARIA WILSON on 04/04/24 Normal [facility] UA DIP, URINE (POC)on 2023 BILIRUBIN UA (POCT) Negative Negative [facility] CLARITY UA (POCT) Clear [facility] COLOR UA (POCT) Yellow [facility] GLUCOSE UA (POCT) Negative Negative mg/dL [facility] Hemoglobin Ql (U) Small Abnormal Negative [facility] Interpretation and review of laboratory results Abnormal [facility] KETONE UA (POCT) Negative Negative mg/dL [facility] LEUKOCYTES UA (POCT) Moderate Abnormal Negative [facility] NITRITE UA (POCT) Negative Negative [facility] (POCT) 5.5 4.5 - 8.0 [facility] Protein Ql (U) Negative Negative mg/dL [facility] SPECIFIC GRAVITY UA (POCT) 1.020 1.005 - 1.030 [facility] UROBILINOGEN UA (POCT) 0.2 Normal E.U./dL [facility] Location:[facility], [address] [place] [address] Dr. [place], [place], [address] [facility] POINT OF CARE [facility] CNPN Telephone (HEMASA) DICKKINGSLEY ([id number]) 1935 M Date Time Provider Department 04/03/24 [...] Fully Assessed Reason for Visit: Lab Orders [5518] Prescriptions as of 04/04/2024 - melatonin 10 [...] Encounter Status:Closed by SELENA DONNELLY on 04/04/24 [facility]20[facility] KINGSLEY JENNINGS ([id number]) 1935 M Date Time Provider Department 04/01/24 [...] Reason for Visit: Care Coordination [3491] Cmt: C1D1 treatment follow up call Prescriptions [...] Status:Closed by LIANA MCGHEE on 04/01/24 Normal [facility] CBC W Auto Differential pane l (Bld)on 03-28-2024 Basophils (Bld) [#/Vol] 0.03 10*3/uL Normal <0.11 [facility] Comment on above: Order Comment: Speci men Type: BLOOD SPECIMENOrdering Facility: [facility] Address: [address] [place] [address] Performed By: #### 5 7021-8 ####[facility] LABCLIA [id number] [place] [address] Basophils/100 WBC (Bld) 0.6 % Normal [facility] Comment on above: Order Comment: Speci men Type: BLOOD SPECIMENOrdering Facility: [facility] Address: [address] [place] [address] Performed By: #### 5 7021-8 ####[facility] LABCLIA [id number] [place] [address] Differential cell count method Nom (Bld) Auto Normal [facility] Comment on above: Order Comment: Speci men Type: BLOOD SPECIMENOrdering Facility: [facility] Address: [address] [place] [address] Performed By: #### 5 7021-8 ####[facility] LABCLIA [id number] [place] [address] Eosinophils (Bld) [#/Vol] 0.17 10*3/uL Normal <0.46 [facility] Comment on above: Order Comment: Speci men Type: BLOOD SPECIMENOrdering Facility: [facility] Address: [address] [place] [address] Performed By: #### 5 7021-8 ####[facility] LABCLIA [id number] [place] [address] Eosinophils/100 WBC (Bld) 3.5 % Normal [facility] Comment on above: Order Comment: Speci men Type: BLOOD SPECIMENOrdering Facility: [facility] Address: [address] [place] [address] Performed By: #### 5 7021-8 ####[facility] LABCLIA [id number] [place] [address] Erythrocyte distribution width (RBC) [Ratio] 14.1 % Normal 11.5-15.0 [facility] Comment on above: Order Comment: Speci men Type: BLOOD SPECIMENOrdering Facility: [facility] Address: [address] [place] [address] Performed By: #### 5 7021-8 ####[facility] LABCLIA [id number] [place] [address] Hematocrit (Bld) [Volume fraction] 37.1 % Low 39.0-51.0 [facility] Comment on above: Order Comment: Speci men Type: BLOOD SPECIMENOrdering Facility: [facility] Address: [address] [place] [address] Performed By: #### 5 7021-8 ####[facility] LABCLIA [id number] [place] [address] Hemoglobin (Bld) [Mass/Vol] 12.7 g/dL Low 13.0-17.0 [facility] Comment on above: Order Comment: Speci men Type: BLOOD SPECIMENOrdering Facility: [facility] Address: [address] [place] [address] Performed By: #### 5 7021-8 ####[facility] LABCLIA [id number] [place] [address] Immature granulocytes (Bld) [#/Vol] 0.03 10*3/uL Normal <0.10 [facility] Comment on above: Order Comment: Speci men Type: BLOOD SPECIMENOrdering Facility: [facility] Address: [address] [place] [address] Performed By: #### 5 7021-8 ####[facility] LABCLIA [id number] [place] [address] Immature granulocytes/100 WBC (Bld) 0.6 % Normal [facility] Comment on above: Order Comment: Speci men Type: BLOOD SPECIMENOrdering Facility: [facility] Address: [address] [place] [address] Performed By: #### 5 7021-8 ####[facility] LABCLIA [id number] [place] [address] Lymphocytes (Bld) [#/Vol] 0.89 10*3/uL Low 1.00-4.00 [facility] Comment on above: Order Comment: Speci men Type: BLOOD SPECIMENOrdering Facility: [facility] Address: [address] [place] [address] Performed By: #### 5 7021-8 ####[facility] LABCLIA [id number] [place] [address] Lymphocytes/100 WBC (Bld) 18.2 % Normal [facility] Comment on above: Order Comment: Speci men Type: BLOOD SPECIMENOrdering Facility: [facility] Address: [address] [place] [address] Performed By: #### 5 7021-8 ####[facility] LABCLIA [id number] [place] [address] MCH (RBC) [Entitic mass] 32.6 pg Normal 26.0-34.0 [facility] Comment on above: Order Comment: Speci men Type: BLOOD SPECIMENOrdering Facility: [facility] Address: [address] [place] [address] Performed By: #### 5 7021-8 ####[facility] LABCLIA [id number] [place] [address] MCHC (RBC) [Mass/Vol] 34.2 g/dL Normal 30.5-36.0 [facility] Comment on above: Order Comment: Speci men Type: BLOOD SPECIMENOrdering Facility: [facility] Address: [address] [place] [address] Performed By: #### 5 7021-8 ####[facility] LABCLIA [id number] [place] [address] MCV (RBC) [Entitic vol] 95.1 fL Normal 80.0-100.0 [facility] Comment on above: Order Comment: Speci men Type: BLOOD SPECIMENOrdering Facility: [facility] Address: [address] [place] [address] Performed By: #### 5 7021-8 ####[facility] LABCLIA [id number] [place] [address] Monocytes (Bld) [#/Vol] 0.85 10*3/uL Normal <0.87 [facility] Comment on above: Order Comment: Speci men Type: BLOOD SPECIMENOrdering Facility: [facility] Address: [address] [place] [address] Performed By: #### 5 7021-8 ####[facility] LABCLIA [id number] [place] [address] Monocytes/100 WBC (Bld) 17.3 % Normal [facility] Comment on above: Order Comment: Speci men Type: BLOOD SPECIMENOrdering Facility: [facility] Address: [address] [place] [address] Performed By: #### 5 7021-8 ####[facility] LABCLIA [id number] [place] [address] Neutrophils (Bld) [#/Vol] 2.93 10*3/uL Normal 1.45-7.50 [facility] Comment on above: Order Comment: Speci men Type: BLOOD SPECIMENOrdering Facility: [facility] Address: [address] [place] [address] Performed By: #### 5 7021-8 ####[facility] LABCLIA [id number] [place] [address] Neutrophils/100 WBC (Bld) 59.8 % Normal [facility] Comment on above: Order Comment: Speci men Type: BLOOD SPECIMENOrdering Facility: [facility] Address: [address] [place] [address] Performed By: #### 5 7021-8 ####[facility] LABIA [id number] [place] [address] Nucleated RBC (Bld) [#/Vol] 10*3/uL Normal <0.01 [facility] Comment on above: Order Comment: Speci men Type: BLOOD SPECIMENOrdering Facility: [facility] Address: [address] [place] [address] Performed By: #### 5 7021-8 ####[facility] LABCLIA [id number] [place] [address] Nucleated RBC/100 WBC (Bld) [Ratio] 0.0 /100 WBC Normal [facility] Comment on above: Order Comment: Speci men Type: BLOOD SPECIMENOrdering Facility: [facility] Address: [address] [place] [address] Performed By: #### 5 7021-8 ####[facility] LABCLIA [id number] [place] [address] Platelet mean volume (Bld) [Entitic vol] 9.3 fL Normal 9.0-12.7 [facility] Comment on above: Order Comment: Speci men Type: BLOOD SPECIMENOrdering Facility: [facility] Address: [address] [place] [address] Performed By: #### 5 7021-8 ####[facility] LABCLIA [id number] [place] [address] Platelets (Bld) [#/Vol] 172 10*3/uL Normal 150-400 [facility] Comment on above: Order Comment: Speci men Type: BLOOD SPECIMENOrdering Facility: [facility] Address: [address] [place] [address] Performed By: #### 5 7021-8 ####[facility] LABCLIA [id number] [place] [address] RBC (Bld) [#/Vol] 3.90 10*6/uL Low 4.20-6.00 [facility] Comment on above: Order Comment: Speci men Type: BLOOD SPECIMENOrdering Facility: [facility] Address: [address] [place] [address] Performed By: #### 5 7021-8 ####[facility] LABCLIA [id number] [place] [address] WBC (Bld) [#/Vol] 4.90 10*3/uL Normal 3.70-11.00 [facility] Comment on above: Order Comment: Speci men Type: BLOOD SPECIMENOrdering Facility: [facility] Address: [address] [place] [address] Performed By: #### 5 7021-8 ####[facility] LABCLIA [id number] [place] [address] [facility] [place] Nurse Visit (HEMASA) KINGSLEY JENNINGS ([id number]) 1935 M Date Time Provider Department 03/28/24 9:00 AM LIZBET NURSE KYLE RYAN HEMASA During your visit today, we recorded [...] 03/17/2024 Visit Notes: >> Hilaria Wilson MA SunMar 28, 2024 9:04 AM Status: Signed UA performed as ordered. Hilaria Wilson MA Encounter Status:Closed by HILARIA WILSON on 03/28/24 [facility] CNOVSPon 03-28-2024 CNOVSP Visit (SP) Office (HEMASA) KINGSLEY JENNINGS ([id number]) 1935 M Date Time Provider Department 03/28/24 8:30 AM SELENA DONNELLY During your visit today, we recorded the following information about you: Temperature Pulse Respiration Blood pressure 97.2 degrees 59/minute 16/minute 163/88 Weight 75.1 kg Selena Donnelly APRN.COKE WORKER 03/28/2024 12:37 PM Signed PATIENT NAME: Kingsley Jennings CLINIC NO.: [id number] ATTENDING PHYSICIAN: Jacek Cano MD DATE OF SERVICE: March 13, [address] Eusebia Galindo [address] [place] [address] thank you for referring Kingsley Jennings for [...] Negative fo (more content not included)... Normal [facility] Comprehensive metabolic 2000 panelon 03-28-2024 Albumin [Mass/Vol] 3.7 g/dL Low 3.9-4.9 [facility] Comment on above: Order Comment: Speci men Type: BLOOD SPECIMENOrdering Facility: [facility] Address: [address] [place] [address] Performed By: #### 2 4323-8 ####[facility] LABCLIA [id number] [place] [address] ALP [Catalytic activity/Vol] 69 U/L Normal 38-113 [facility] Comment on above: Order Comment: Speci men Type: BLOOD SPECIMENOrdering Facility: [facility] Address: [address] [place] [address] Performed By: #### 2 4323-8 ####[facility] LABCLIA [id number] [place] [address] ALT [Catalytic activity/Vol] 25 U/L Normal 10-54 [facility] Comment on above: Order Comment: Speci men Type: BLOOD SPECIMENOrdering Facility: [facility] Address: [address] [place] [address] Performed By: #### 2 4323-8 ####[facility] LABCLIA [id number] [place] [address] Anion gap [Moles/Vol] 5 mmol/L Low 8-15 [facility] Comment on above: Order Comment: Speci men Type: BLOOD SPECIMENOrdering Facility: [facility] Address: [address] [place] [address] Performed By: #### 2 4323-8 ####[facility] LABCLIA [id number] [place] [address] AST [Catalytic activity/Vol] 23 U/L Normal 14-40 [facility] Comment on above: Order Comment: Speci men Type: BLOOD SPECIMENOrdering Facility: [facility] Address: [address] [place] [address] Performed By: #### 2 4323-8 ####[facility] LABCLIA [id number] [place] [address] Bilirubin [Mass/Vol] 0.7 mg/dL Normal 0.2-1.3 [facility] Comment on above: Order Comment: Speci men Type: BLOOD SPECIMENOrdering Facility: [facility] Address: [address] [place] [address] Performed By: #### 2 4323-8 ####[facility] LABCLIA [id number] [place] [address] Calcium [Mass/Vol] 10.0 mg/dL Normal 8.5-10.2 [facility] Comment on above: Order Comment: Speci men Type: BLOOD SPECIMENOrdering Facility: [facility] Address: [address] [place] [address] Performed By: #### 2 4323-8 ####[facility] LABCLIA [id number] [place] [address] Chloride [Moles/Vol] 104 mmol/L Normal 98-107 [facility] Comment on above: Order Comment: Speci men Type: BLOOD SPECIMENOrdering Facility: [facility] Address: [address] [place] [address] Performed By: #### 2 4323-8 ####[facility] LABCLIA [id number] [place] [address] CO2 [Moles/Vol] 26 mmol/L Normal 22-30 [facility] Comment on above: Order Comment: Speci men Type: BLOOD SPECIMENOrdering Facility: [facility] Address: [address] [place] [address] Performed By: #### 2 4323-8 ####[facility] LABCLIA [id number] [place] [address] Creatinine [Mass/Vol] 1.06 mg/dL Normal 0.73-1.22 [facility] Comment on above: Order Comment: Speci men Type: BLOOD SPECIMENOrdering Facility: [facility] Address: [address] [place] [address] Performed By: #### 2 4323-8 ####[facility] LABCLIA [id number] [place] [address] Creatinine and Glomerular filtration rate.predicted panel (S/P/Bld) 67 mL/min/1.73m??? Normal >=60 [facility] Comment on above: Order Comment: Speci men Type: BLOOD SPECIMENOrdering Facility: [facility] Address: [address] [place] [address] Result Comment: Lorin mated Glomerular Filtration Rate [...] actual GFR. Performed By: #### 2 4323-8 ####[facility] LABCLIA [id number] [place] [address] Glucose [Mass/Vol] 85 mg/dL Normal 74-99 [facility] Comment on above: Order Comment: Speci men Type: BLOOD SPECIMENOrdering Facility: [facility] Address: [address] [place] [address] Result Comment: The [place] Diabetes Association (ADA) provides guidance for cutoff [...] Standards of Medical Care in Diabetes 2016, [place] Diabetes Association. Diabetes Care. 2016.39(Suppl 1). Performed By: #### 2 4323-8 ####[facility] LABCLIA [id number] [place] [address] Potassium [Moles/Vol] 4.8 mmol/L Normal 3.7-5.1 [facility] Comment on above: Order Comment: Speci men Type: BLOOD SPECIMENOrdering Facility: [facility] Address: [address] [place] [address] Performed By: #### 2 4323-8 ####[facility] LABCLIA [id number] [place] [address] Protein [Mass/Vol] 5.5 g/dL Low 6.3-8.0 [facility] Comment on above: Order Comment: Speci men Type: BLOOD SPECIMENOrdering Facility: [facility] Address: [address] [place] [address] Performed By: #### 2 4323-8 ####[facility] LABCLIA [id number] [place] [address] Sodium [Moles/Vol] 135 mmol/L Low 136-144 [facility] Comment on above: Order Comment: Speci men Type: BLOOD SPECIMENOrdering Facility: [facility] Address: [address] [place] [address] Performed By: #### 2 4323-8 ####[facility] LABCLIA [id number] [place] [address] Urea nitrogen [Mass/Vol] 21 mg/dL Normal 9-24 [facility] Comment on above: Order Comment: Speci men Type: BLOOD SPECIMENOrdering Facility: [facility] Address: [address] [place] [address] Performed By: #### 2 4323-8 ####[facility] LABCLIA [id number] [place] [address] UA DIP, URINE (POC)on 2023 BILIRUBIN UA (POCT) Negative Negative [facility] CLARITY U[facility] (POCT) [facility] COLOR UA (POCT) Dark yellow [facility] d [facility] GLUCOSE UA (POCT) Negative Negative mg/dL [facility] Hemoglobin Ql (U) Trace-intact Abnormal Negative [facility] Interpretation and review of laboratory results Abnormal [facility] KETONE UA (POCT) Negative Negative mg/dL [facility] LEUKOCYTES UA (POCT) Small Abnormal Negative [facility] NITRITE UA (POCT) Negative Negative [facility] PH UA (POCT) 6.0 4.5 - 8.0 [facility] Protein Ql (U) Negative Negative mg/dL [facility] SPECIFIC GRAVITY UA (POCT) >=1.030 1.005 - 1.030 [facility] UROBILINOGEN UA (POCT) 0.2 Normal E.U./dL [facility] Location:[facility], [address] [place] [address] , [place], [place], [address] [facility] POINT OF CARE [facility] Christen 03-25-2024 RAYMON Telephone (HEMASA) KINGSLEY JENNINGS ([id number]) 1935 M Date Time Provider Department 03/25/24 LIANA MCGHEE During your visit today, we [...] BLOOD COUNT AND DIFFERENTIAL [SQCBCDIF] Order #: [id number] FUTURE COMPREHENSIVE METABOLIC PANEL [SQCMP] Order #: [id number] FUTURE UA DIP, URINE (POC) [5535243] Order #: [id number] FUTURE Prescriptions as of 03/25/2024 - melatonin [...] Encounter Status:Closed by LIANA MCGHEE on 03/25/24 [facility] 03-21-2024 [facility] Nurse Visit (HEMASA) KINGSLEY JENNINGS ([id number]) 1935 M Date Time Provider Department 03/21/24 9:00 AM LIANA MCGHEE HEMASA During your visit today, we recorded the following information about you: Liana Mcghee RN 03/21/2024 10:03 AM Signed ONCOLOGY PATIENT [...] Reason for Visit: First Time Treatment Education [0549] Primary Visit 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 Normal [facility] Christen 03-17-2024 TREVERN Telephone (KRIS) KINGSLEY JENNINGS ([id number]) 1935 M Date Time Provider Department 03/17/24 [...] Fully Assessed Reason for Visit: Lab Orders [7018] Prescriptions as of 03/31/2024 - melatonin 10 [...] Encounter Status:Closed by BHARGAVI MONTOYA on 03/31/24 [facility] CNOVSPon 03-14-2024 CNOVSP Visit (SP) Office (HEMASA) KINGSLEY JENNINGS ([id number]) 1935 M Date Time Provider Department 03/14/24 11:00 AM JACEK CANO During your visit today, we recorded the following information about you: Temperature Pulse Respiration Blood pressure 97.6 degrees 69/minute 16/minute 139/73 Weight 73.9 kg Jacek Cano MD 03/14/2024 11:24 AM Signed PATIENT NAME: Kingsley Jennings CLINIC NO.: [id number] ATTENDING PHYSICIAN: Jacek Cano MD DATE OF SERVICE: March 13, [address] Eusebia Galindo [address] [place] [address] thank you for referring Kingsley Jennings for [...] or r (more content not included)... Normal [facility] Ambulatory Visit Summaryon 1 Ambulatory Visit Summary Ambulatory Visit Summary DICK KINGSLEY Markham :1935 Visit Date:02/29/2024 Ambulatory Visit Instructions Your [...] with MATEO DICK, ZELDA Goodwin When: Where: [address] [place] [address]- Medications What How Much When Instructions Unchanged [...] family hi (more content not included)... 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 Results reviewed with pt and his son in detail. Called and spoke with [facility] pathologist. Reviewed pathology slides and he confirmed [...] UR after Howe was removed. Presented to [facility] ER 02/18/24 and Howe was replaced. Given recent UR episode I recommend providing pt with CIC supplies to take home with him in the event if he is unable to urinate. Script sent for Keflex 250mg bid x 5 days. Pt (more content not included)... Normal [facility] Comment on above: Result Comment: Elec tronically Signed By: MATEO DICK, Eusebia Beckman\.br\Date and Time Signed: 02/29/24 13:02 EDT\.br\Electronically Co-Signed By: Kate Seth\.br\Date and Time Co-Signed: 02/29/24 12:58 EDT Bryce 02-21-2024 L Specimen: [id number] Received: 02/22/24 Status: SOUChandler Reanil Num: [id number] Spec Type: Surgical Subm Dr: Eusebia Galindo MD Tissues: A Urinary Bladder - biopsy (BLADDER BX TUMOR BED) B Urinary Bladder - biopsy (BLADDER TUMOR) Procedures: HE/4, Gross/Micro L4/2 Age/ Patient Sex Location Account Attending Physician Kingsley Jennings 88/M [facility] [id number] Eusebia Galindo MD SPEC NUM: [id number] RECD: 02/22/24 STATUS: GIL MCMANUS NUM: [id number] TANNER: 02/21/[address]: Eusebia Galindo MD ENTERED: 02/22/24 [facility] DR: Isaiah Porras SPEC TYPE: Surgical DEPT: COLIN MENDOZA ENTERED BY: [id number] RECV BY: [id number] ORDERED: HE/4, Gross/Micro L4/2 ORDERED: HE/4, Gross/Micro [...] bladder tumor and consists of ---- Specimen: [id number] Received: 02/22/24 Status: GIL Mcmanus Num: [id number] Spec Type: Surgical Subm Dr: Eusebia Galindo MD Tissues: A Urinary Bladder - biopsy (BLADDER BX TUMOR BED) B Urinary Bladder - biopsy (BLADDER TUMOR) Procedures: HE/4, Gross/Micro L4/2 ---- Patient: Kingsley Jennings [id number] (Continued) ---- Specimen: [id number] Received: 02/22/24 (Continued) Gross Description (Continued) Signed (signature on file) Geo Finnegan MD 03/13/24 0928 ---- Specimen: [id number] Received: 02/22/24 Status: GIL Mcmanus Num: [id number] Spec Type: Surgical Subm Dr: Eusebia Galindo MD Tissues: A Urinary Bladder - biopsy (BLADDER BX TUMOR BED) B Urinary Bladder - biopsy (BLADDER TUMOR) Procedures: HE/Carmelo, Gross/Micro L4/2 ---- Patient: Kingsley Jennings [id number] (Continued) ---- Specimen: [id number] Received: 02/22/24 (Continued) Gross Description (Continued) multiple lowe hemorrhagic soft tissue fragments measuring 1.5 x 0.7 x 0.3 cm in aggregate. The specimen is filtered entirely submitted cassette B1. Microscopic Description A B: Microscopic examination is performed. CPT Codes 17096 x 2 ---- ---- Specimen: [id number] Received: 02/22/24 Status: GIL Mcmanus Num: [id number] Spec Type: Surgical Subm Dr: Eusebia Galindo MD Tissues: A Urinary Bladder - biopsy (BLADDER BX TUMOR BED) B Urinary Bladder - biopsy (BLADDER TUMOR) Procedures: HE/Carmelo, Gross/Micro L4/2 ---- Patient: Kingsley Jennings [id number] (Continued) ---- Signed (signature on file) Geo Finnegan MD 03/13/24927 Normal [facility] C Urineon 02-20-2024 Bacteria [...] Locations R1: This test was performed at: [facility], [address] [place] [address], [phone] , , Normal [facility] Comment on above: Performed By: #### 2 [id number] #### [facility] [address] [place] [address] Ambulatory Visit Summaryon 1 Ambulatory Visit Summary Ambulatory Visit Summary KINGSLEY JENNINGS :1935 Visit Date:02/18/2024 Ambulatory Visit Instructions Your Diagnosis BPH with obstruction/lower urinary tract symptoms Urinary frequency Dysuria Your Care Team Attending Physician - REYNALDO GALINDO MD Primary Care Physician - Jennifer [...] Sunday 11:00 AM EDT With: MATEO DICK, Eusebia Beckman Where: [facility] [place] [address]- Medications What How Much When Instructions Unchanged [...] for choosing us for your care. 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 Results reviewed with pt and his son in detail. Called and spoke with [facility] pathologist. Reviewed pathology slides and he confirmed [...] BPH w (more content not included)... Normal [facility] Comment on above: Result Comment: Elec tronically Signed By: Eusebia GALINDO MD\.br\Date and Time Signed: 02/15/24 09:23 EDT\.br\Electronically Co-Signed By: Kate Seth\.br\Date and Time Co-Signed: 02/15/24 09:16 EDT Bryce 02-07-2024 L Specimen: [id number] Received: 02/08/24 Status: [facility] Num: [id number] Spec Type: Surgical Subm Dr: Eusebia Galindo MD Tissues: A Urinary Bladder - biopsy (BLADDER TUMOR) Procedures: HE/2, Gross/Micro L4 Age/ Patient Sex Location Account Attending Physician Kingsley Jennings 88/M [facility] [id number] Eusebia Galindo MD SPEC NUM: [id number] RECD: 02/08/24 STATUS: GIL MCMANUS NUM: [id number] TANNER: 02/07/[address]: Eusebia Galindo MD ENTERED: 02/08/24-1513 [facility] DR: Isaiah Porras SPEC TYPE: Surgical DEPT: COLIN MENDOZA ENTERED BY: [id number] RECV BY: [id number] ORDERED: HE/2, Gross/Micro L4 ORDERED: HE/2, Gross/Micro L4 Pathological Diagnosis Urinary bladder tumor, TURBT -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 ---- Specimen: [id number] Received: 02/08/24 Status: GIL [facility] Num: [id number] Spec Type: Surgical Subm Dr: Eusebia Galindo MD Tissues: A Urinary Bladder - biopsy (BLADDER TUMOR) Procedures: HE/2, Gross/Micro L4 ---- Patient: Kingsley Jennings [id number] (Continued) ---- Specimen: [id number] Received: 02/08/24 (Continued) Signed (signature on file) Philomena Busch MD 02/11/24 1728 ---- Specimen: [id number] Received: 02/08/24 Status: GIL Mustapha Num: [id number] Spec Type: Surgical Subm Dr: Eusebia Galindo MD Tissues: A Urinary Bladder - biopsy (BLADDER TUMOR) Procedures: SONIYA/Abiola Omer/Mona L4 ---- Patient: Kingsley Jennings [id number] (Continued) ---- Specimen: [id number] Received: 02/08/24 (Continued) Microscopic Description Microscopic examinations are performed supporting the above interpretation CPT Codes 78524 ---- ---- Specimen: [id number] Received: 02/08/24 Status: GIL Mcmanus Num: [id number] Spec Type: Surgical Subm Dr: Eusebia Galindo MD Tissues: A Urinary Bladder - biopsy (BLADDER TUMOR) Procedures: SONIYA/Kan, Gross/Micro L4 ---- Patient: Kingsley Jennings [id number] (Continued) ---- Signed (signature on file) Philomena Busch MD 02/11/24 1728 Normal [facility] Office Visiton 01-28-2024 Follow-up visit [id number] Fernie Jennings 1935 M Date Provider Department Center 01/28/2024 Niurka-VINH GUZMAN ESPINO[facility] No family history on file Level of Service:49805 IA OFFICE/OUTPATIENT ESTABLISHED MOD MDM 30 MIN Normal [facility] Main OR Intraoperative Recor don 01-15-2024 Main OR Intraoperative Record Main OR Intraoperative Record IntraOp Document Type FTURO Summary Primary Physician: Eusebia GALINDO MD Finalized Date/Time: 01/15/24 11:19:04 Pt. Name: KINGSLEY JENNINGS.O.B./Sex: 1935 Male Med Rec #: [id number] Physician: Eusebia GALINDO MD Financial #: [id number] Pt. Type: O Room/Bed: / Admit/Disch: 01/15/24 [...] Deborah Rodríguez Role Performed Surgeon - Primary Finished Carpet Inspector - Primary Scrub - Primary Time In [...] Position Verified Availability Equipment, Medication Time Out Eusebia GALINDO MD, Verified (If Participants Yasmin MARQUIS, Luanne Stubbs) Jw Tyler Laura C, MODESTO DICK, MIKAYLA [...] By: Luanne Hoffman RN 01/15/24 11:19 Normal [facility] Main OR Preoperative Recordo n 01-15-2024 Main OR Preoperative Record Main OR Preoperative Record Holding Area Document Type FTURO Summary Primary Physician: Eusebia GALINDO MD Finalized Date/Time: 01/15/24 10:31:41 Pt. Name: KINGSLEY JENNINGS D.O.B./Sex: 1935 Male Med Rec #: [id number] Physician: Eusebia GALINDO MD Financial #: [id number] Pt. Type: O Room/Bed: / Admit/Disch: 01/15/24 [...] Complaints of Pain: No Skin Integrity Intact, [place], Warm, & Dry Vitals - EU Blood Pressure 126/73 Pulse 80 bpm Respirations 18 br/min SPO2 Additional None Specimens Collected Last Modified By: Mari Estrella LPN 01/15/24 10:31:36 Finalized By: Mari Estrella LPN Document Signatures Signed By: Mari Estrella LPN 01/15/24 10:31 Normal [facility] Operative Reporton Operative Report Operative Report [...] for cystoscopy and TURBT under anesthesia.. Normal [facility] Comment on above: Result Comment: Elec tronically Signed By: MATEO DICK, Eusebia Puente\Date and Time Signed: 01/15/24 11:16 EDT Urine Cytology ([facility])on 0 12-30-2023 Microscopic exam Cytology (U) [Interp] Diagnosis Info Invalid Interpretation Code [facility] Comment on above: Result Comment: A:Ur [...] on: 12/30/2023 11:24:24 Performed By: #### 1 [id number] ####[facility] [address] [place] [address] Ambulatory Visit Summaryon 12-25-2023 Ambulatory Visit Summary [...] ZELDA KIM When: Where: [address] [facility] [place] [address] [phone] Medications What How Much When Instructions Unchanged [...] ? Un (more content not included)... Normal [facility] Ambulatory Visit Summary Ambulatory Visit Summary [...] JONNY BATEMAN, ZELDA KIM When: Where: [address] [place] [place] [phone] Medications What How Much When Instructions Unchanged [...] ? Un (more content not included)... Normal [facility] Urine Cytology ([facility])on 12-25-2023 Method of Extraction Voided Normal [facility] Comment on above: Performed By: #### 1 [id number] ####[facility] [address] [place] [id number] Number of Jars 1 Invalid Interpretation Code [facility] Comment on above: Performed By: #### 1 [id number] ####[facility] [address] [place] [address] Specimen Urine Normal [facility] Comment on above: Performed By: #### 1 [id number] ####[facility] [address] [place] [address] Type of Service Technical Only Normal [facility] Comment on above: Performed By: #### 1 [id number] ####[facility] [address] [place] [address] Urology Office/Clinic Noteon 12-25-2023 Urology Office/Clinic Note [...] mass (N32.89: Other specified disorders of bladder) [facility] 11/27/23 [facility] - 3.6 cm bladder mass. Reviewed imaging results. Advised pt bladder masses can be misread on US and may act (more content not included)... Normal [facility] Comment on above: Result Comment: Elec tronically Signed By: BRISA FULLER PA-C\.br\Date and Time Signed: 12/25/23 09:32 EDT\.br\Electronically Co-Signed By: Hortencia Thomas\.br\Date and Time Co-Signed: 12/25/23 09:24 EDT Office Visiton 08-08-2023 Follow-up visit [id number] Fernie Jennings 1935 M Date Provider Department Center 08/08/2023 ADÁN CHING No family history on file Level of Service:73925 [place] OFFICE/OUTPATIENT ESTABLISHED LOW MDM 20 MIN Normal [facility] Office Visiton 02-06-2023 Follow-up visit [id number] Fernie Jennings 1935 M Date Provider Department Center 02/06/2023 ADÁN CHING No family history on file Level of Service:51530 IA OFFICE/OUTPATIENT ESTABLISHED LOW MDM 20-29 MIN Normal [facility] OCC BLD IMMUNO SCREENon 07-12 OCCULT BLOOD Negative Normal NEGATIVE [facility] Comment on above: Performed By: #### O BSCRN #### [facility] [address] [address] [address] Gricel Busch MRI LSPINE WO CONon [...] by: GAY BAEZA Date: 2022-06-09 09:46 Normal [facility] CT TSPINE WO CONon 2 CT [...] by: MACY MICHAEL Date: 2022-01-05 16:34 Normal [facility] CBC COMPLETE BLOOD COUNTon 0 12-29-2021 Erythrocyte distribution width (RBC) [Ratio] 13.4 % Normal 11.5-15.0 [facility] Comment on above: Order Comment: No: D o not add to previous draw Performed By: #### 5 [id number] #### [facility] [address] Hematocrit (Bld) [Volume fraction] 38.5 % Low 39.0-50.0 [facility] Comment on above: Order Comment: No: D o not add to previous draw Performed By: #### 5 [id number] #### [facility] [address] Hemoglobin (Bld) [Mass/Vol] 13.5 g/dL Normal 13.0-17.0 [facility] Comment on above: Order Comment: No: D o not add to previous draw Performed By: #### 5 [id number] #### [facility] [address] [facility]. [address] MCH (RBC) [Entitic mass] 32.4 pg Normal 27.0-33.0 [facility] Comment on above: Order Comment: No: D o not add to previous draw Performed By: #### 5 0608 #### [facility] [address] [place] [address], [facility] MCHC (RBC) [Mass/Vol] 35.1 g/dL High 32.0-35.0 [facility] Comment on above: Order Comment: No: D o not add to previous draw Performed By: #### 5 0608 #### [facility] [address] [place] [address], [facility] MCV (RBC) [Entitic vol] 92.3 fL Normal 82.0-98.0 [facility] Comment on above: Order Comment: No: D o not add to previous draw Performed By: #### 5 0608 #### [facility] [address] [place] [address], [facility] Nucleated RBC/100 WBC (Bld) [Ratio] 0 % Normal 0-0 [facility] Comment on above: Order Comment: No: D o not add to previous draw Performed By: #### 5 0608 #### [facility] [address] [place] [address], [facility] PLAT CNT 165 10*3/uL Normal 150-400 [facility] Comment on above: Order Comment: No: D o not add to previous draw Performed By: #### 5 0608 #### [facility] [address] [facility] [place] [address], [facility] RBC (Bld) [#/Vol] 4.17 10*6/uL Low 4.20-5.70 [facility] Comment on above: Order Comment: No: D o not add to previous draw Performed By: #### 5 0608 #### [facility] [address] [place] [address], [facility] WBC (Bld) [#/Vol] 8.33 10*3/uL Normal 4.00-10.60 [facility] Comment on above: Order Comment: No: D o not add to previous draw Performed By: #### 5 0608 #### [facility] [address] [place] [address], [facility] CREATININE BLOODon 2 Creatinine [Mass/Vol] 0.82 mg/dL Normal 0.70-1.30 [facility] Comment on above: Order Comment: No: D o not add to previous draw Performed By: #### 2 5656 #### [facility] [address] GFR/1.73 sq M.predicted among non-blacks MDRD (S/P/Bld) [Vol rate/Area] mL/min/{1.73_m2} Normal >60 [facility] Comment on above: Order Comment: No: D o not add to previous draw Result Comment: [facility]'s estimated glomerular filtration rate (eGFR) will [...] individuals. Performed By: #### 2 5656 #### [address] Cardiovascular Lab Reporton 12-29-2021 Cardiovascular Lab Report [facility] Patient Name: Kingsley Jennings [facility] D MR #: [id number] Department of Physician: Adeline Carlos M.D. Division of Service Date: 12/28/2021 Cardiology Birthdate: 1935 Adult Cardiovascular Room #: [id number] [place] [address] Cardiovascular Laboratory Report FINAL IMPRESSIONS: 1. 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 METHODS: After risks, benefits, [...] was performed. This was upsized to a 6-Rwandan 11 cm sheath. Bilateral selective coronary angiography [...] the procedure. All catheters were removed. A 6-Rwandan MynxGrip closure device was deployed per protocol [...] marginals. Distal filling is seen into the point hope ira obtuse marginal via saphenous vein graft. Just [...] patent (more content not included)... Normal [facility] TROPONIN-Ion 12-28-2021 Troponin I.cardiac [Mass/Vol] 0.09 ng/mL High 0.00-0.04 [facility] Comment on above: Order Comment: No: D o not add to previous draw Result Comment: REFE RENCE RANGES: 0.00 - 0.04 ng/ml NORMAL 0.05 - 0.50 ng/ml INDETERMINATE > 0.50 ng/ml CONSISTENT WITH AN M.I. Performed By: #### 3 [id number] #### [facility] [address] [place] [address], [facility] CBC AUTO DIFFon 12-26-2021 BASO # 0.0 103/ul Normal 0.0-0.1 [facility] Comment on above: Performed By: #### C BC #### [facility] [address] [place] [address] Dr. Gricel Busch Basophils/100 WBC (Bld) 0.6 % Normal 0.2-2.0 [facility] Comment on above: Performed By: #### C BC #### [facility] [address] [place] [address] Dr. Gricel Busch EO # 0.1 103/ul Normal 0.0-0.7 [facility] Comment on above: Performed By: #### C BC #### [facility] [address] [place] [address] Dr. Gricel Busch Eosinophils/100 WBC (Bld) 1.8 % Normal 0.9-7.0 [facility] Comment on above: Performed By: #### C BC #### [facility] [address] [place] [address] Dr. Gircel Busch Erythrocyte distribution width (RBC) [Ratio] 13.1 % Normal 11.0-15.0 [facility] Comment on above: Performed By: #### C BC #### [facility] [address] [place] [address] Dr. Gricel Busch Hematocrit (Bld) [Volume fraction] 42.4 % Normal 42.0-54.0 [facility] Comment on above: Performed By: #### C BC #### [facility] [address] [place] [address] Dr. Gricel Busch Hemoglobin (Bld) [Mass/Vol] 13.9 g/dL Critically low 14.0-18.0 [facility] Comment on above: Performed By: #### C BC #### [facility] [address] [place] [address] Dr. Gricel Busch IG # 0.03 10e3/ul Normal 0.00-0.03 [facility] Comment on above: Performed By: #### C BC #### [facility] [address] [place] [address] Dr. Gricel Busch IG % 0.4 % Normal 0.0-0.5 [facility] Comment on above: Performed By: #### C BC #### [facility] [address] [place] [address] Dr. Gricel Busch LYMPH # 1.2 103/ul Normal 1.2-3.8 [facility] Comment on above: Performed By: #### C BC #### [facility] [address] [place] [address] Dr. Gricel Busch Lymphocytes/100 WBC (Bld) 16.9 % Critically low 20.5-60.0 [facility] Comment on above: Performed By: #### C BC #### [facility] [address] [place] [address] Dr. Gricel Busch MANUAL DIFF REQ NO Normal [facility] Comment on above: Performed By: #### C BC #### [facility] [address] [place] [address] Dr. Gricel Busch MCH (RBC) [Entitic mass] 31.3 pg Normal 25.9-34.0 [facility] Comment on above: Performed By: #### C BC #### [facility] [address] [place] [address] Dr. Gricel Busch MCHC (RBC) [Mass/Vol] 32.8 g/dL Normal 29.9-35.2 [facility] Comment on above: Performed By: #### C BC #### [facility] [address] [place] [address] Dr. Gricel Busch MCV (RBC) [Entitic vol] 95.5 fL Critically high 80.0-94.0 [facility] Comment on above: Performed By: #### C BC #### [facility] [address] [place] [address] Dr. Gricel Busch MONO # 0.8 103/ul Normal 0.3-0.8 [facility] Comment on above: Performed By: #### C BC #### [facility] [address] [place] [address] Dr. Gricel Busch Monocytes/100 WBC (Bld) 10.9 % Normal 1.7-12.0 [facility] Comment on above: Performed By: #### C BC #### [facility] [address] [place] [address] Dr. Gricel Busch NEUT # 4.9 103/ul Normal 1.4-6.5 [facility] Comment on above: Performed By: #### C BC #### [facility] [address] [address] [address] Gricel Busch Neutrophils/100 WBC (Bld) 69.4 % Normal 43.0-75.0 [facility] Comment on above: Performed By: #### C BC #### [facility] [address] [place] [address] [address] Gricel Busch Platelet mean volume (Bld) [Entitic vol] 9.6 fL Normal 9.5-13.5 [facility] Comment on above: Performed By: #### C BC #### [facility] [address] [place] [address] Dr. Gricel Busch PLT 191 103/ul Normal 150-450 [facility] Comment on above: Performed By: #### C BC #### [facility] [address] [place] [address] Dr. Gricel Busch RBC 4.44 106/ul Critically low 4.70-6.10 [facility] Comment on above: Performed By: #### C BC #### [facility] [address] [address] [address] Gricel Busch WBC 7.1 103/ul Normal 4.0-11.0 [facility] Comment on above: Performed By: #### C BC #### [facility] [address] [place] [address] Dr. Gricel Busch Covid-19 PCR ([facility])on 12-12 SARS-CoV-2 (COVID-19) RNA NIR+probe Ql (Unsp spec) Not detected Normal NOT DETECTED [facility] Comment on above: Result Comment: This test is not yet approved or cleared by the [place] FDA. When there are no FDA-approved or cleared tests available, and other criteria are met, FDA can make tests available under an emergency access mechanism called an Emergency Use Authorization (EUA). The EUA for this test is supported by the Vp Data of Health and Human Service's (HHS's) declaration [...] By: #### C VDTB #### [facility] [address] [place] [address] Dr. Gricel Busch PROF CHEM 8 (BAS METB)on Anion gap [Moles/Vol] 9.6 mmol/L Normal [facility] Comment on above: Performed By: #### B MP #### [facility] [address] [place] [address] Dr. Gricel Busch Calcium [Mass/Vol] 9.8 mg/dL Normal 8.5-10.1 [facility] Comment on above: Performed By: #### B MP #### [facility] [address] [place] [address] Dr. Gricel Busch Chloride [Moles/Vol] 102 mmol/L Normal 98-107 [facility] Comment on above: Performed By: #### B MP #### [facility] [address] [place] [address] Dr. Gricel Busch CO2 [Moles/Vol] 28.1 mmol/L Normal 21.0-32.0 [facility] Comment on above: Performed By: #### B MP #### [facility] [address] [place] [address] Dr. Gricel Busch Creatinine [Mass/Vol] 0.88 mg/dL Normal 0.70-1.30 [facility] Comment on above: Performed By: #### B MP #### [facility] [address] [place] [address] Dr. Gricel Busch EGFR-AF TAJIK >60 Normal >=60 [facility] Comment on above: Performed By: #### B MP #### [facility] [address] [address] [address] Gricel Busch EGFR-NON AF TAJIK >60 Normal >=60 [facility] Comment on above: Performed By: #### B MP #### [facility] [address] [address] [address] Gricel Busch Glucose [Mass/Vol] 101 mg/dL Normal 74-106 [facility] Comment on above: Performed By: #### B MP #### [facility] [address] [address] [address] Gricel Busch Potassium [Moles/Vol] 4.7 mmol/L Normal 3.5-5.1 [facility] Comment on above: Performed By: #### B MP #### [facility] [address] [address] [address] Gricel Busch Sodium [Moles/Vol] 135 mmol/L Critically low 136-145 [facility] Comment on above: Performed By: #### B MP #### [facility] [address] [address] [address] Gricel Busch Urea nitrogen [Mass/Vol] 12.0 mg/dL Normal 7.0-18.0 [facility] Comment on above: Performed By: #### B MP #### [facility] [address] [address] [address] Gricel Busch Urea nitrogen/Creatinin e [Mass ratio] 13.6 mg/mg Normal [facility] Comment on above: Performed By: #### B MP #### [facility] [address] [address] [address] Gricel Busch ECHOCARDIO M/2D COMPLETEon 0 12-21-2021 ECHOCARDIO M/2D COMPLETE Patient: KINGSLEY JENNINGS Exam Date: 12/21/2021 : 1935 Gender:M Ordering : DR JENNIFER ESTES . Admission #: [id number] Family : Order #: [id number] CLICK HERE TO VIEW EXAM ECHOCARDIOGRAM REPORT [...] M.D. on 12/21/2021 at 19:28 Normal [facility] STRESS/REST MULTIon 12-20 [place] STRESS/REST MULTI Patient: KINGSLEY JENNINGS Exam Date: 12/20/2021 : 1935 Gender:M Ordering : DR JENNIFER ESTES . Admission #: [id number] Family : Order #: [id number] CLICK HERE TO VIEW EXAM RADIOLOGY REPORT [...] Baeza MD on 12/20/2021 at 14:18 Normal [facility] Vital Signs Date Time Vital Sign Value Performing Clinician Alex elias 06-03-2024 15:35-0500 Blood Pressure Location Eusebia GALINDO [facility] 06-03-2024 15:35-0500 Diastolic blood pressure 90 mm[Hg] Eusebia GALINDO [facility] 06-03-2024 15:35-0500 Heart rate 52 /min Eusebia GALINDO [facility] 06-03-2024 15:35-0500 Respiratory rate 16 /min Eusebia GALINDO [facility] 06-03-2024 15:35-0500 Systolic blood pressure 150 mm[Hg] Eusebia GALINDO [facility] 05-23-2024 13:21-0500 Body mass index (BMI) [Ratio] 24.38 kg/m2 Jacek Cano MD Work Phone: [facility] 05-23-2024 13:21-0500 Body temperature 97.2 [degF] Jacek Cano MD Work Phone: [facility] 05-23-2024 13:21-0500 Body weight 74.9 kg Jacek Cano MD Work Phone: [facility] 05-23-2024 13:21-0500 Diastolic blood pressure 70 mm[Hg] Jacek Cano MD Work Phone: [facility] 05-23-2024 13:21-0500 Heart rate 57 /min Jacek Cano MD Work Phone: [facility] 05-23-2024 13:21-0500 Respiratory rate 16 /min Jacek Cano MD Work Phone: [facility] 05-23-2024 13:21-0500 SaO2% (BldA) [Mass fraction] 97 % Jacek Cano MD Work Phone: [facility] 05-23-2024 13:21-0500 Systolic blood pressure 149 mm[Hg] Jacek Cano MD Work Phone: [facility] 05-22-2024 09:23-0500 Blood Pressure Location BRISA FULLER [facility] 05-22-2024 09:23-0500 Body temperature 98.6 [degF] BRISA FULLER [facility] 05-22-2024 09:23-0500 Diastolic blood pressure 68 mm[Hg] BRISA FULLER [facility] 05-22-2024 09:23-0500 Heart rate 60 /min BRISA FULLER [facility] 05-22-2024 09:23-0500 Respiratory rate 16 /min BRISA FULLER [facility] 05-22-2024 09:23-0500 Systolic blood pressure 112 mm[Hg] BRISA FULLER [facility] 05-02-2024 08:13-0500 Body mass index (BMI) [Ratio] 24.48 kg/m2 Selena Donnelly CUTTING TABLE OPERATOR [employer] Work Phone: [facility] 05-02-2024 08:13-0500 Body temperature 97.2 [degF] Selena Donnelly CUTTING TABLE OPERATOR [employer] Work Phone: [facility] 05-02-2024 08:13-0500 Body weight 75.2 kg Selena Donnelly CUTTING TABLE OPERATOR [employer] Work Phone: [facility] 05-02-2024 08:13-0500 Diastolic blood pressure 68 mm[Hg] Selena Donnelly CUTTING TABLE OPERATOR [employer] Work Phone: [facility] 05-02-2024 08:13-0500 Heart rate 55 /min Selena Donnelly CUTTING TABLE OPERATOR [employer] Work Phone: [facility] 05-02-2024 08:13-0500 Respiratory rate 18 /min Selena Donnelly CUTTING TABLE OPERATOR [employer] Work Phone: [facility] 05-02-2024 08:13-0500 SaO2% (BldA) [Mass fraction] 98 % Selena Donnelly CUTTING TABLE OPERATOR [employer] Work Phone: [facility] 05-02-2024 08:13-0500 Systolic blood pressure 143 mm[Hg] Selena Andrzej CUTTING TABLE OPERATOR [employer] Work Phone: [facility] 04-25-2024 08:35-0500 Body temperature 97.39 [degF] Chair Kings Work Phone: [facility] 04-25-2024 08:35-0500 Diastolic blood pressure 75 mm[Hg] Chair Kings Work Phone: [facility] 04-25-2024 08:35-0500 Heart rate 61 /min Chair Kings Work Phone: [facility] 04-25-2024 08:35-0500 Respiratory rate 16 /min Chair Valeria Work Phone: [facility] 04-25-2024 08:35-0500 SaO2% (BldA) [Mass fraction] 98 % Chair Kings Work Phone: [facility] 04-25-2024 08:35-0500 Systolic blood pressure 177 mm[Hg] Chair Valeria Work Phone: [facility] 04-18-2024 08:55-0500 Body temperature 97.5 [degF] Chair Kings Work Phone: [facility] 04-18-2024 08:55-0500 Diastolic blood pressure 75 mm[Hg] Chair Kings Work Phone: [facility] 04-18-2024 08:55-0500 Heart rate 50 /min Chair Kings Work Phone: [facility] 04-18-2024 08:55-0500 Respiratory rate 16 /min Chair Valeria Work Phone: [facility] 04-18-2024 08:55-0500 SaO2% (BldA) [Mass fraction] 100 % Chair Valeria Work Phone: [facility] 04-18-2024 08:55-0500 Systolic blood pressure 145 mm[Hg] Chair Valeria Work Phone: [facility] 04-11-2024 08:48-0500 Diastolic blood pressure 87 mm[Hg] Selena Donnelly APRN.CNP Work Phone: [facility] Comment on above: [facility] 04-11-2024 08:48-0500 Systolic blood pressure 176 mm[Hg] Selena Andrzej CUTTING TABLE OPERATOR [employer] Work Phone: [facility] Comment on above: [facility] 04-11-2024 08:46-0500 Body height 175.3 cm Seelna Andrzej CUTTING TABLE OPERATOR [employer] Work Phone: [facility] 04-11-2024 08:46-0500 Body mass index (BMI) [Ratio] 24.48 kg/m2 Selena Andrzej CUTTING TABLE OPERATOR [employer] Work Phone: [facility] 04-11-2024 08:46-0500 Body temperature 97.81 [degF] Selena Andrzej CUTTING TABLE OPERATOR [employer] Work Phone: [facility] 04-11-2024 08:46-0500 Body weight 75.2 kg Selena Andrzej CUTTING TABLE OPERATOR [employer] Work Phone: [facility] 04-11-2024 08:46-0500 Heart rate 56 /min Selena Andrzej CUTTING TABLE OPERATOR [employer] Work Phone: [facility] 04-11-2024 08:46-0500 Respiratory rate 18 /min Selena Andrzej CUTTING TABLE OPERATOR [employer] Work Phone: [facility] 04-11-2024 08:46-0500 SaO2% (BldA) [Mass fraction] 97 % Selena Andrzej CUTTING TABLE OPERATOR [employer] Work Phone: [facility] 04-04-2024 08:45-0500 Body temperature 97.59 [degF] Chair Valeria Work Phone: [facility] 04-04-2024 08:45-0500 Diastolic blood pressure 78 mm[Hg] Chair Valeria Work Phone: [facility] 04-04-2024 08:45-0500 Heart rate 56 /min Chair Valeria Work Phone: [facility] 04-04-2024 08:45-0500 Respiratory rate 16 /min Chair Valeria Work Phone: [facility] 04-04-2024 08:45-0500 SaO2% (BldA) [Mass fraction] 99 % Chair Valeria Work Phone: [facility] 04-04-2024 08:45-0500 Systolic blood pressure 155 mm[Hg] Chair Valeria Work Phone: [facility] 03-28-2024 08:50-0500 Diastolic blood pressure 88 mm[Hg] Selena Andrzej CUTTING TABLE OPERATOR [employer] Work Phone: [facility] Comment on above: recheck 03-28-2024 08:50-0500 Systolic blood pressure 163 mm[Hg] Selena Andrzej CUTTING TABLE OPERATOR [employer] Work Phone: [facility] Comment on above: recheck 03-28-2024 08:48-0500 Body temperature 97.2 [degF] Selena Andrzej CUTTING TABLE OPERATOR [employer] Work Phone: [facility] 03-28-2024 08:48-0500 Body weight 75.1 kg Selena Andrzej CUTTING TABLE OPERATOR [employer] Work Phone: [facility] 03-28-2024 08:48-0500 Heart rate 59 /min Selena Andrzej CUTTING TABLE OPERATOR [employer] Work Phone: [facility] 03-28-2024 08:48-0500 Respiratory rate 16 /min Selena Andrzej CUTTING TABLE OPERATOR [employer] Work Phone: [facility] 03-28-2024 08:48-0500 SaO2% (BldA) [Mass fraction] 98 % Selena Andrzej CUTTING TABLE OPERATOR FIRST.COKE WORKER Work Phone: [facility] 03-14-2024 10:31-0400 Body temperature 97.59 [degF] Jacek Cano MD Work Phone: [facility] 03-14-2024 10:31-0400 Body weight 73.9 kg Jacek Cano MD Work Phone: [facility] 03-14-2024 10:31-0400 Diastolic blood pressure 73 mm[Hg] Jacek Cano MD Work Phone: [facility] 03-14-2024 10:31-0400 Heart rate 69 /min Jacek Cano MD Work Phone: [facility] 03-14-2024 10:31-0400 Respiratory rate 16 /min Jacek Cano MD Work Phone: [facility] 03-14-2024 10:31-0400 SaO2% (BldA) [Mass fraction] 98 % Jacek Cano MD Work Phone: [facility] 03-14-2024 10:31-0400 Systolic blood pressure 139 mm[Hg] Jacek Cano MD Work Phone: [facility] 02-29-2024 11:56-0400 Blood Pressure Location Eusebia GALINDO [facility] 02-29-2024 11:56-0400 Body temperature 98.6 [degF] Eusebia GALINDO [facility] 02-29-2024 11:56-0400 Diastolic blood pressure 71 mm[Hg] Eusebia GALINDO [facility] 02-29-2024 11:56-0400 Heart rate 70 /min Eusebia GALINDO [facility] 02-29-2024 11:56-0400 Respiratory rate 16 /min Eusebia GALINDO [facility] 02-29-2024 11:56-0400 Systolic blood pressure 138 mm[Hg] Eusebia GALINDO [facility] 02-15-2024 08:29-0400 Blood Pressure Location Eusebiamarisol GALINDO [facility] 02-15-2024 08:29-0400 Body temperature 98.6 [degF] Eusebia GALINDO [facility] 02-15-2024 08:29-0400 Diastolic blood pressure 73 mm[Hg] Eusebia GALINDO [facility] 02-15-2024 08:29-0400 Heart rate 62 /min Eusebia GALINDO [facility] 02-15-2024 08:29-0400 Respiratory rate 16 /min Eusebiamarisol GALINDO [facility] 02-15-2024 08:29-0400 Systolic blood pressure 129 mm[Hg] Eusebia GAILNDO [facility] 12-25-2023 08:38-0400 Body temperature 97.88 [degF] BRISA JONNY [facility] 12-25-2023 08:38-0400 Diastolic blood pressure 82 mm[Hg] BRISA JONNY [facility] 12-25-2023 08:38-0400 Heart rate 58 /min BRISA JONNY [facility] 12-25-2023 08:38-0400 Respiratory rate 16 /min BRISA JONNY [facility] 12-25-2023 08:38-0400 Systolic blood pressure 150 mm[Hg] BRISA JONNY [facility] Black Encounters Encounter Date Encounter Type Care Provider Facility Start: 06-05-2024 End: 06-06-2024 Telephone encounter Liana Mcghee RN Work Phone: Hematology/Oncology Comment on above: Care Coordination (C linical update, more BCG treatments) Start: 06-03-2024 End: 06-03-2024 ambulatory Eusebia R MATEO Facility:[facility] Start: 06-03-2024 End: 06-03-2024 Lab Drop off Eusebia GALINDO [facility] Start: 06-03-2024 End: 06-03-2024 ambulatory Eusebiamarisol GALINDO Facility:[facility] Start: 06-03-2024 End: 06-03-2024 Patient encounter procedure Eusebia GALINDO [facility] [place] Start: 05-23-2024 End: 05-23-2024 Office outpatient visit 15 minutes Jacek Cano MD Work Phone: Hematology/Oncology Comment on above: Malignant neoplasm o f urinary bladder, unspecified site (HCC) (Primary Dx) Start: 05-23-2024 End: 05-23-2024 ambulatory JENNIFER ESTES Facility:[facility] Start: 05-22-2024 End: 05-22-2024 ambulatory BRISA FULLER Facility:[facility] Start: 05-22-2024 End: 05-22-2024 Patient encounter procedure BRISA FULLER [facility] Black Start: 05-20-2024 End: 05-20-2024 Telephone encounter Liana Mcghee RN Work Phone: Hematology/Oncology Comment on above: Care Coordination (M edication question) Start: 05-15-2024 End: 05-16-2024 Telephone encounter Liana Mcghee RN Work Phone: Hematology/Oncology Comment on above: Care Coordination (r esults) Start: 05-12-2024 End: 05-12-2024 ambulatory JENNIFER ESTES Facility:[facility] Start: 05-02-2024 End: 05-02-2024 Nursing evaluation of patient and report Lizbet Ryan Work Phone: Hematology/Oncology Comment on above: Malignant neoplasm o f urinary bladder, unspecified site (HCC) (Primary Dx) Start: 05-02-2024 End: 05-02-2024 Office outpatient visit 25 minutes Selena Donnelly APRN.COKE WORKER Work Phone: Hematology/Oncology Comment on above: Malignant neoplasm o f urinary bladder, unspecified site (HCC) (Primary Dx) Start: 05-02-2024 End: 05-02-2024 ambulatory Chair 23 Val[place] Work Phone: Hematology/Oncology Comment on above: Malignant neoplasm o f urinary bladder, unspecified site (HCC) (Primary Dx) Start: 04-28-2024 End: 04-28-2024 Telephone encounter Selena Donnelly APRN.COKE WORKER Work Phone: Hematology/Oncology Comment on above: Lab Orders Start: 04-25-2024 End: 04-25-2024 Nursing evaluation of patient and report Lizbet Ryan Work Phone: Hematology/Oncology Comment on above: Urinary frequency Start: 04-25-2024 End: 04-25-2024 ambulatory Chair 23 Val[place] Work Phone: Hematology/Oncology Comment on above: Malignant neoplasm o f urinary bladder, unspecified site (HCC) (Primary Dx) Start: 04-18-2024 End: 04-18-2024 Nursing evaluation of patient and report Lizbet Ryan Work Phone: Hematology/Oncology Comment on above: Malignant neoplasm o f urinary bladder, unspecified site (HCC); Urinary frequency Start: 04-18-2024 End: 04-21-2024 ambulatory Chair 23 Valeria Work Phone: Hematology/Oncology Comment on above: Malignant [...] Start: 04-11-2024 End: 04-14-2024 ambulatory Chair 23 Val[place] Work Phone: Hematology/Oncology Comment on above: Malignant neoplasm o f urinary bladder, unspecified site (HCC) (Primary Dx) Start: 04-04-2024 End: 04-04-2024 Nursing evaluation of patient and report Lizbet Ryan Work Phone: Hematology/Oncology Comment on above: High risk medication use (Primary Dx); Urinary frequency; Encounter for long-term (current) use of other medications Start: 04-04-2024 End: 04-04-2024 ambulatory Chair 23 Valeria Work Phone: Hematology/Oncology Comment on above: Malignant neoplasm o f urinary bladder, unspecified site (HCC) (Primary Dx) Start: 04-03-2024 End: 04-04-2024 Telephone encounter Selena Donnelly APRN.COKE WORKER Work Phone: Hematology/Oncology Comment on above: Lab [...] Dx) Start: 03-28-2024 End: 03-28-2024 ambulatory Chair Tammi [place] Work Phone: Hematology/Oncology Comment on above: Malignant neoplasm o f urinary bladder, unspecified site (HCC) (Primary Dx) Start: 03-25-2024 End: 03-25-2024 Telephone encounter Liana Mcghee RN Work Phone: Hematology/Oncology Comment on above: Care Coordination (P ositive home UTI test result) Start: 03-21-2024 End: 03-21-2024 ambulatory [facility] Facility:[facility] Start: 03-21-2024 End: 03-21-2024 Nursing evaluation of patient and report Liana Mcghee RN Work Phone: Hematology/Oncology Comment on above: 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) Start: 03-17-2024 End: 03-31-2024 Orders Only Bella Min [facility] Work Phone: [facility] HB-3 Comment on above: Malignant neoplasm o f urinary bladder, unspecified site (HCC) (Primary Dx) Lab Orders Start: 03-14-2024 End: 03-14-2024 ambulatory [facility] Facility:[facility] Start: 03-14-2024 End: 03-14-2024 Office outpatient new 60 minutes Jacek Cano MD Work Phone: Hematology/Oncology Comment on above: 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) Start: 03-11-2024 End: 03-11-2024 Chart abstracting Jacek Cano MD Work Phone: Hematology/Oncology Start: 02-29-2024 End: 02-29-2024 ambulatory Eusebia GALINDO Facility:[facility] Start: 02-29-2024 End: 02-29-2024 Patient encounter procedure Eusebia R GALINDO [facility] Start: 02-21-2024 End: 02-21-2024 ambulatory Eusebia Galindo [facility] Work Phone: Start: 02-21-2024 End: 02-21-2024 Departed Referred MD Eusebia Galindo Work Phone: [facility] Start: 02-21-2024 End: 02-21-2024 ambulatory Eusebia GALINDO Facility:[id number] Start: 02-18-2024 End: 02-18-2024 Lab Drop off Eusebia GALINDO [facility] Start: 02-18-2024 End: 02-18-2024 ambulatory Eusebia GALINDO Facility:[facility] Start: 02-18-2024 End: 02-18-2024 Patient encounter procedure REYNALDO GALINDO [facility] Start: 02-15-2024 End: 02-15-2024 ambulatory Eusebia GALINDO Facility:[facility] Start: 02-15-2024 End: 02-15-2024 Patient encounter procedure Eusebia GALINDO [facility] Start: 02-07-2024 End: 02-07-2024 ambulatory Eusebia Galindo Facility:[facility] Start: 02-07-2024 End: 02-07-2024 Departed Referred MD Eusebia Galindo Work Phone: [facility] Start: 02-07-2024 End: 02-07-2024 ambulatory Eusebia GALINDO Facility:[id number] Start: 01-28-2024 End: 01-28-2024 ambulatory [facility] Start: 01-28-2024 End: 01-28-2024 Encounter for preprocedural cardiovascular examination [facility] Start: 01-28-2024 Encounter for preprocedural cardiovascular examination [facility] Start: 01-24-2024 Non-patient / Non-visit MD Jolly Galindo Work Phone: [facility] Work Phone: Start: 01-15-2024 End: 01-15-2024 ambulatory Eusebia GALINDO Facility:[facility] Start: 01-15-2024 End: 01-15-2024 Patient encounter procedure Eusebia GALINDO [facility] Start: 12-31-2023 End: 12-31-2023 ambulatory Hamida Faheem Galea Facility:[facility] Start: 12-31-2023 End: 12-31-2023 Patient encounter procedure Hamida Faheem Galea [facility] Start: 12-25-2023 End: 12-25-2023 ambulatory BRISA FULLER Facility:[facility] Start: 12-25-2023 End: 12-25-2023 Lab Drop off BRISA FULLER [facility] Start: 12-25-2023 End: 12-25-2023 ambulatory PA-C BRISA FULLER Facility:[facility] Start: 12-25-2023 End: 12-25-2023 Patient encounter procedure BRISA FULLER [facility] Start: 12-12-2023 ambulatory PA-C BRISA FULLER F acility:[facility] [place] Start: 11-29-2023 ambulatory BHAVANA guadarramaty:[facility] [place] Start: 08-08-2023 End: 08-08-2023 ambulatory [facility] Start: 07-25-2023 End: 07-25-2023 ambulatory Not Available Start: 07-12-2023 End: 07-12-2023 ambulatory Not Available Start: 02-06-2023 End: 02-06-2023 ambulatory [facility] Start: 07-28-2022 End: 07-28-2022 ambulatory CK NIXON Facility:[facility] Start: 07-26-2022 End: 07-26-2022 ambulatory CK NIXON Facility:[facility] Start: 06-09-2022 End: 06-10-[address] JENNIFER ESTES . Facility:[facility] Start: 05-22-2022 End: 05-23-[address] JENNIFER ESTES . Facility:[facility] Start: 05-14-2022 End: 06-02-[address] JENNIFER ESTES . Facility:[facility] Start: 05-01-2022 End: 05-13-[address] JENNIFER ESTES . Facility:[facility] Start: 01-05-2022 End: 01-06-[address] JENNIFER ESTES . Facility:[facility] Start: 12-28-2021 End: 12-29-2021 [facility] Start: 12-26-2021 End: 12-27-[address] ADÁN SHARIF Facility:[facility] Start: 12-21-2021 End: 12-22-[address] JENNIFER ESTES . Facility:[facility] Start: 12-20-2021 End: 12-21-2021 ambulatory [...] Ladonna De León PA-C Work Phone: Start: 04-11-2024 Urnls dip stick/tabl et rgnt auto w/o microscopy Ladonna De León PA-C Work Phone: Start: 04-04-2024 Urnls dip stick/tabl et rgnt auto w/o microscopy Ladonna De León PA-C Work Phone: Start: 03-28-2024 Urnls dip stick/tabl et rgnt auto w/o microscopy [facility] Provider Start: 02-07-2024 Transurethral resect ion of bladder neoplasm Eusebia GALINDO Start: 01-15-2024 Cystoscopy Eusebia SARABIA Start: 06-30-2009 Colonoscopy BRISA SÁNCHEZ Cardiac catheterization JOSE FULLER Coronary angioplasty JOHNSON FULLER Repair of inguinal hernia TRUNG FULLER Comment on above: left Plan of Treatment Date Care Activity Detail Author Start: 05-02-2027 Diabetes Screening Diabetes Screenin g [facility] Start: 03-28-2027 Diabetes Screening Diabetes Screenin g [facility] Start: 12-13-2025 Urine microalbumin profile DTaP,Tdap,Td Vaccine (2 - Td or Tdap) [facility] Start: 08-27-2024 End: 08-27-2024 ambulatory 08/27/2024 8:30 AM EDT Infusion Center Hematology/[place] [address] BCG x3 Hematology/Oncology Comment on above: BCG x3 Start: 08-22-2024 End: 08-22-2024 Follow-up encounter 08/22/2024 10:30 AM EDT Visit (SP) Office Hematology/[place] [address] Jacek Cano MD [address] [place] [address] 3 month follow up lab Hematology/Oncology Comment on above: 3 month follow up augustine morales Start: 08-22-2024 End: 08-22-2024 Patient encounter procedure 08/22/2024 10:15 AM EDT Office Visit [facility] [address] [place] [address] 3 month follow up lab [facility] Comment on above: 3 month follow up la b Start: 08-21-2024 End: 11-20-2024 CBC W Auto Differential panel - Blood COMPLETE BLOOD COUNT AND DIFFERENTIAL Lab Routine Malignant neoplasm of urinary bladder, unspecified site (HCC) Expected: 08/21/2024 (Approximate), Expires: 11/20/2024 [facility] Work Phone: Comment on above: Expected: 08/21/2024 (Approximate), Expires: 11/20/2024 Start: 08-21-2024 End: 11-20-2024 Cobalamin (Vitamin B12) [Mass/volume] in Serum or Plasma VITAMIN B12 Lab Routine Malignant neoplasm of urinary bladder, unspecified site (HCC) Expected: 08/21/2024 (Approximate), Expires: 11/20/2024 [facility] Comment on above: Expected: 08/21/2024 (Approximate), Expires: 11/20/2024 Start: 08-21-2024 End: 11-20-2024 Comprehensive metabolic 2000 panel - Serum or Plasma COMPREHENSIVE METABOLIC PANEL Lab Routine Malignant neoplasm of urinary bladder, unspecified site (HCC) Expected: 08/21/2024 (Approximate), Expires: 11/20/2024 [facility] Comment on above: Expected: 08/21/2024 (Approximate), Expires: 11/20/2024 Start: 08-21-2024 End: 11-20-2024 Ferritin [Mass/volume] in Serum or Plasma FERRITIN Lab Routine Malignant neoplasm of urinary bladder, unspecified site (HCC) Expected: 08/21/2024 (Approximate), Expires: 11/20/2024 [facility] Comment on above: Expected: 08/21/2024 (Approximate), Expires: 11/20/2024 Start: 08-21-2024 End: 11-20-2024 Folate [Mass/volume] in Serum or Plasma FOLATE, SERUM Lab Routine Malignant neoplasm of urinary bladder, unspecified site (HCC) Expected: 08/21/2024 (Approximate), Expires: 11/20/2024 [facility] Comment on above: Expected: 08/21/2024 (Approximate), Expires: 11/20/2024 Start: 08-21-2024 End: 11-20-2024 Iron and Iron binding capacity panel - Serum or Plasma IRON AND TIBC Lab Routine Malignant neoplasm of urinary bladder, unspecified site (HCC) Expected: 08/21/2024 (Approximate), Expires: 11/20/2024 [facility] Comment on above: Expected: 08/21/2024 (Approximate), Expires: 11/20/2024 Start: 08-20-2024 End: 08-20-2024 ambulatory 08/20/2024 8:30 AM EDT Infusion Center Hematology/Oncology [address] [place] [address] BCG x3 Hematology/Oncology Comment on above: BCG x3 Start: 08-13-2024 End: 08-13-2024 Follow-up encounter Hematology/Oncology Comment on above: lab follow up w/ BCG Start: 08-13-2024 End: 08-13-2024 Patient encounter procedure 08/13/2024 8:15 AM EDT Office Visit [facility] [address] [place] [address] lab follow up w/ BCG [facility] Comment on above: lab follow up w/ BCG Start: 05-23-2024 End: 05-23-2024 Follow-up encounter 05/23/2024 2:00 PM EST Visit (SP) Office Hematology/Oncology [address] [address] Jacek Cano MD [address] [place] [address] 3 week follow up lab Hematology/Oncology Comment on above: 3 week follow up lab Start: 05-23-2024 End: 05-23-2024 Patient encounter procedure 05/23/2024 1:45 PM EST Office Visit [facility] [address] [place] [address] 3 week follow up lab [facility] Comment on above: 3 week follow up lab Start: 05-14-2024 Advance Directive Discussion Advance Directive Discussion [facility] Start: 05-02-2024 End: 05-02-2024 Nursing evaluation of patient and report 05/02/2024 9:15 AM EST Nurse Visit Hematology/Oncology [address] [place] [address] Lizbet Ryan Nurse Kyle [address] [place] [address] UA Hematology/Oncology Comment on above: UA Start: 05-02-2024 End: 05-02-2024 ambulatory 05/02/2024 8:30 AM EST Infusion Center Hematology/Oncology [address] [place] [address] BCG Hematology/Oncology Comment on above: BCG Start: 05-02-2024 End: 05-02-2024 Follow-up encounter 05/02/2024 8:30 AM EST Visit (SP) Office Hematology/Oncology [address] [place] [address] Selena Donnelly APRN.COKE WORKER [address] [place] [address] follow up prior to tx Hematology/Oncology Comment on above: follow up prior to t x Start: 05-02-2024 End: 05-02-2024 Patient encounter procedure 05/02/2024 8:15 AM EST Office Visit [facility] [address] [place] [address] follow up prior to tx [facility] Comment on above: follow up prior to t x Start: 04-28-2024 End: 07-28-2024 CBC W Auto Differential panel - Blood COMPLETE BLOOD COUNT AND DIFFERENTIAL Lab Routine Malignant neoplasm of urinary bladder, unspecified site (HCC) Expected: 04/28/2024, Expires: 07/28/2024 [facility] Work Phone: Comment on above: Expected: 04/28/2024 , Expires: 07/28/2024 Start: 04-28-2024 End: 07-28-2024 Comprehensive metabolic 2000 panel - Serum or Plasma COMPREHENSIVE METABOLIC PANEL Lab Routine Malignant neoplasm of urinary bladder, unspecified site (HCC) Expected: 04/28/2024, Expires: 07/28/2024 [facility] Comment on above: Expected: 04/28/2024 , Expires: 07/28/2024 Start: 04-25-2024 End: 04-25-2024 Nursing evaluation of patient and report 04/25/2024 9:00 AM EST Nurse Visit Hematology/Oncology [address] [facility] [address] [place] [address] Lizbet Ryan Nurse Kyle [address] [facility] [place] [address] Hematology/Oncology Comment on above: UA Start: 04-25-2024 End: 04-25-2024 ambulatory 04/25/2024 8:30 AM EST Infusion Center Hematology/Oncology [address] [facility] [place] [address] [facility] Comment on above: BCG Start: 04-18-2024 End: 04-18-2024 Nursing evaluation of patient and report 04/18/2024 9:00 AM EST Nurse Visit Hematology/Oncology [address] [place] [address] Lizbet Ryan Nurse Kyle [address] [place] [address] Hematology/Oncology Comment on above: UA Start: 04-18-2024 End: 04-18-2024 ambulatory 04/18/2024 8:30 AM EST Infusion Center Hematology/Oncology [address] [place] [address] [facility] Comment on above: BCG Start: 04-11-2024 End: 04-11-2024 Nursing evaluation of patient and report 04/11/2024 9:00 AM EST Nurse Visit Hematology/Oncology [address] [place] [address] Lizbet Ryan Nurse Kyle [address] [place] [address] Hematology/Oncology Comment on above: UA Start: 04-11-2024 End: 04-11-2024 ambulatory 04/11/2024 8:30 AM EST Infusion Center Hematology/Oncology [address] [place] [address] BCG Hematology/Oncology Comment on above: BCG Start: 04-11-2024 End: 04-11-2024 Follow-up encounter 04/11/2024 8:30 AM EST Visit (SP) Office Hematology/Oncology [address] [place] [address] Selena Donnelly APRN.COKE WORKER [address] [place] [address] follow up w/ Selena prior to tx same day Hematology/Oncology Comment on above: follow up w/ Selena prior to tx same day Start: 04-11-2024 End: 04-11-2024 Patient encounter procedure 04/11/2024 8:15 AM EST Office Visit [facility] [address] [place] [address] follow up w/ Selena prior to tx same day [facility] Comment on above: follow up w/ Selena prior to tx same day Start: 04-04-2024 End: 04-04-2024 Nursing evaluation of patient and report 04/04/2024 9:00 AM EST Nurse Visit Hematology/Oncology [address] [place] [address] Lizbet Ryan Nurse Kyle [address] [place] [address] Hematology/Oncology Comment on above: UA Start: 04-04-2024 End: 04-04-2024 ambulatory 04/04/2024 8:30 AM EST Infusion Center Hematology/Oncology [address] [place] [address] BCG X6 Hematology/Oncology Comment on above: BCG X6 Start: 03-28-2024 End: 06-27-2024 CBC W Auto Differential panel - Blood COMPLETE BLOOD COUNT AND DIFFERENTIAL Lab Routine 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) Urinary frequency Expected: 03/28/2024, Expires: 06/27/2024 [facility] Work Phone: Comment on above: Expected: 03/28/2024 , Expires: 06/27/2024 Start: 03-28-2024 End: 06-27-2024 Comprehensive metabolic 2000 panel - Serum or Plasma COMPREHENSIVE METABOLIC PANEL Lab Routine 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) Urinary frequency Expected: 03/28/2024, Expires: 06/27/2024 [facility] Comment on above: Expected: 03/28/2024 , Expires: 06/27/2024 Start: 03-28-2024 End: 06-27-2024 UA DIP, URINE (POC) UA DIP, URINE (POC) Lab Routine 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) Urinary frequency Expected: 03/28/2024, Expires: 06/27/2024 [facility] Comment on above: Expected: 03/28/2024 , Expires: 06/27/2024 Start: 03-28-2024 End: 03-28-2024 ambulatory Hematology/Oncology Comment on above: BCG X6 Start: 03-28-2024 End: 03-28-2024 Nursing evaluation of patient and report Hematology/Oncology Comment on above: POC UA UA Start: 03-28-2024 End: 03-28-2024 Patient encounter procedure 03/28/2024 8:15 AM EST Office Visit [facility] [address] [facility] [address] [address] 2 week follow up [facility] Comment on above: 2 week follow up Start: 03-21-2024 End: 03-21-2024 Nursing evaluation of patient and report 03/21/2024 9:00 AM EST Nurse Visit Hematology/Oncology [address] [place] [address] Liana Mcghee RN [address] [place] [address] BCG Hematology/Oncology Comment on above: BCG Start: 03-14-2024 End: 03-14-2024 FQHC visit new patient 03/14/2024 11:00 AM EDT Visit (SP) Office Hematology/Oncology [address] [place] [address] Jacek Cano MD [address] [place] [address] New Patient DX Bladder CA. Images requested. Hematology/Oncology Comment on above: New Patient DX Bladd er CA. Images requested. Start: 01-13-2024 Covid-19 Vaccine ( season) Covid-19 Vaccine ( season) [facility] Start: 01-13-2024 Covid-19 Vaccine ( season) Covid-19 Vaccine ( season) [facility] Start: 01-13-2024 Influenza vaccination Influenza Vacc ine (#1) [facility] Start: 05-14-2023 Advance Directive Discussion Advance Directive Discussion [facility] Start: 11-13-2017 Pneumococcal Vaccine : 65+ (2 of 2 - PCV) Pneumococcal Vaccine: 65+ (2 of 2 - PCV) [facility] Start: 2009 RSV Vaccine (1 - 1-d ose 75+ series) RSV Vaccine (1 - 1-dose 75+ series) [facility] Start: 1984 Shingrix Vaccine (1 of 2) Shingrix Vaccine (1 of 2) [facility] [facility] Start: 09-26-1979 Diabetes Screening Diabetes Screenin g [facility] Start: 1953 Urine microalbumin profile DTaP,Tdap,Td Vaccine (1 - Tdap) [facility] Start: 1952 Anxiety Screening Anxiety Screening [facility] Start: 1952 Depression Screening Depression Scre ening [facility] UA DIP OB, URINE (POC) UA DIP OB , URINE (POC) Lab Routine Malignant neoplasm of urinary bladder, unspecified site (HCC) 1 Occurrences starting 04/04/2024 [facility] Work Phone: Comment on above: 1 Occurrences starti ng 04/04/2024 UA DIP OB, URINE (POC) UA DIP OB , URINE (POC) Lab Routine Malignant neoplasm of urinary bladder, unspecified site (HCC) 1 Occurrences starting 04/25/2024 [facility] Work Phone: Comment on above: 1 Occurrences starti ng 04/25/2024 Immunizations Immunization Date Immunization Notes Care Provider Janie ling 03-26-2023 influenza virus vaccine, unspecified formulation BRISA JONNY [facility] 09-16-2021 SARS-CoV-2 mRNA (vepnajqjpoy-czlf-fgjib se) vaccine BRISA JONNY [facility] Comment on above: Result Comment: 2023: [id number] 02-24-2021 SARS-CoV-2 (COVID-19 ) mRNA BNT-162b2 vax BRISA JONNY [facility] Comment on above: Result Comment: 2023: [id number] 02-18-2021 influenza virus vaccine, unspecified formulation BRISA JONNY [facility] 06-30-2020 SARS-CoV-2 (COVID-19 ) mRNA BNT-162b2 vax BRISA JONNY [facility] 06-07-2020 SARS-CoV-2 (COVID-19 ) mRNA BNT-162b2 vax BRISA JONNY [facility] 04-05-2020 influenza virus vaccine, unspecified formulation BRISA JONNY [facility] 03-07-2019 influenza virus vaccine, unspecified formulation BRISA JONNY [facility] 04-13-2017 influenza virus vaccine, unspecified formulation BRISA OJNNY [facility] 02-12-2017 influenza virus vaccine, unspecified formulation BRISA JONNY [facility] 11-13-2016 pneumococcal polysaccharide vaccine, 23 valent BRISA JONNY [facility] 02-12-2013 influenza virus vaccine, unspecified formulation BRISA JONNY [facility] 03-11-2003 pneumococcal polysaccharide vaccine, 23 valent BRISA JONNY [facility] NEGATED: Highlighted row has not occurred!02-21-2019 influenza virus vaccine, unspecified formulation BRISA JONNY [facility] Comment on above: Result Comment: Will obtain from primary care physician Payers Date Payer Category Payer Self-pay 2023 Private Health Insurance [facility] [employer] [id number] 2023-Present [phone] [address] [place] [address] Indemnity [id number] 1999 Medicare [id number] 1959 Medicare [id number] 1959 Private Health Insurance [id number] 1934 Unknown [id number] 2.16.840.1.750897.3.579 .2.647 1934 Unknown [id number] 2.16.840.1.061298.3.579 .2.593 1934 Unknown [id number] 2.16.840.1.140277.3.579 .2.593 1934 Unknown [id number] 2.16.840.1.370953.3.579 .2.593 1934 Unknown [id number] 2.16.840.1.533395.3.579 .2.593 1934 Unknown [id number] 2.16.840.1.420497.3.579 .2.593 1934 Unknown [id number] 2.16.840.1.021104.3.579 .2.593 1934 Unknown [id number] 2.16.840.1.249679.3.579 .2.59 1934 Unknown [id number] 2.16.840.1.137625.3.579 .2.59 1934 Unknown [id number] 2.16.840.1.476152.3.579 .2.593 1934 Unknown [id number] 2.16.840.1.555753.3.579 .2.59 1934 Unknown [id number] 2.16.840.1.170290.3.579 .2.1259 1934 Unknown [id number] 2.16.840.1.272156.3.579 .2.1259 1934 Unknown [id number] 2.16.840.1.799822.3.579 .2.727 1934 Unknown [id number] 2.16.840.1.846121.3.579 .2.727 1934 Unknown [id number] 2.16.840.1.920337.3.579 .2.727 1934 Unknown [id number] 2.16.840.1.680609.3.579 .2.727 1934 Unknown [id number] 2.16.840.1.667384.3.579 .2.727 1934 Unknown [id number] 2.16.840.1.005202.3.579 .2. 1934 Unknown [id number] 2.16.840.1.239843.3.579 .2. 1934 Unknown [id number] 2.16.840.1.117470.3.579 .2. 1934 Unknown [id number] 2.16.840.1.153750.3.579 .2. 1934 Unknown [id number] 2.16.840.1.031404.3.579 .2. 1934 Unknown [id number] 2.16.840.1.719763.3.579 .2. 1934 Unknown [id number] 2.16.840.1.501318.3.579 .2. 1934 Unknown [id number] 2.16.840.1.712436.3.579 .2. 1934 Unknown [id number] 2.16.840.1.450789.3.579 .2 1934 Unknown [id number] 2.16.840.1.351419.3.579 .2. 1934 Unknown [id number] 2.16.840.1.383097.3.579 .2.727 Unknown [facility] [id number] Unknown [id number] 2.16.840.1.658752.3.579 .2.531 Unknown [id number] 2.16.840.1.540975.3.579 .2.531 Social History Date Type Detail Facility Start: 12-25-2023 End: 06-03-2024 Tobacco smoking status Never smoked tobacco (finding) [facility] Tobacco smoking status Never [facility] Start: 03-14-2024 End: 03-21-2024 Sex Assigned At Male [facility] Start: 1935 Sex Assigned At Male [facility] Tobacco smoking stat us NHIS Tobacco smoking consumption unknown [facility] Start: 03-11-2024 Alcoholic beverage intake Ex-drinker (finding) [facility] Start: 03-11-2024 Alcohol Comment denies alcohol use 01/15/2019 [facility] Start: 1935 Sex assigned at Not on file C [facility] Start: 03-14-2024 End: 03-21-2024 History of Social function [facility] Functional Status Date Assessment Result Facility 06-03-2024 Functional Status N/A [facility] 05-22-2024 Functional Status N/A [facility] 02-29-2024 Functional Status N/A [facility] 02-15-2024 Functional Status N/A [facility] 01-15-2024 Functional Status N/A [facility] 12-25-2023 Functional Status N/A [facility] Clinical Notes 12-30-2021 to 06-06-2024 Telephone Encounter - Radha Armas - 06/06/2024 1:22 PM ESTTelephone Encounter - Radha Armas - 06/06/2024 1:22 PM ESTTelephone Encounter - Charly Kearney RN - 06/06/2024 12:54 PM EST Note Date & Type Note Facility 06-06-2024 Telephone encounter Note Patient has been scheduled to start on 08/13 with BCG weekly x3. Patient notified. Radha Armas [facility] 06-06-2024 Miscellaneous Notes Patient has been scheduled to start on 08/13 with BCG weekly x3. Patient notified. Radha Armas VM received in triage. Patient stated on the message someone was trying to get ahold of him. Looks we are trying to schedule his BCG. Will forward to clerical pool Charly Kearney RN Call placed to patient, no answer. Left message on VM to call back to schedule. Radha Armas Schedule him for 3 weekly BCG treatments starting 08/12/24. Schedule him to see me on that day. Thanks. Call received from Veronika at Dr Galindo office stating pt's scope is all clear. Dr Galindo would like pt to have 3 more weekly BCG treatments end of July/beginning of August, and then pt is set up for his next scope on 09/16. Veronika will be faxing over progress note and recommendations to our office shortly. Liana Mcghee RN documented in this encounter [facility] 06-06-2024 Telephone encounter Note VM received in triage. Patient stated on the message someone was trying to get ahold of him. Looks we are trying to schedule his BCG. Will forward to clerical pool Charly Kearney, KANDIS [facility] 06-06-2024 Telephone encounter Note Call placed to patient, no answer. Left message on VM to call back to schedule. Radha Armas [facility] 06-05-2024 Telephone encounter Note Schedule him for 3 weekly BCG treatments starting 08/12/24. Schedule him to see me on that day. Thanks. [facility] Work Phone: 06-05-2024 Telephone encounter Note Call received from Veronika at Dr Galindo office stating pt's scope is all clear. Dr Galindo would like pt to have 3 more weekly BCG treatments end of July/beginning of August, and then pt is set up for his next scope on 09/16. Veronika will be faxing over progress note and recommendations to our office shortly. Liana Mcghee RN [facility] 06-03-2024 Hospital Discharg e instructions Patient Education [...] cells. Follow these instructions at home: Take csam-dvo-brukfop and prescription medicines only as told by [...] is important. Where to find more information [employer] (ACS): cancer.org National Cancer [place] (NCI): cancer.gov Contact a health care provider [...] provider. Document Revised: 04/10/2022 Document Reviewed: 04/10/[address] Patient Education 2023 [employer]. Follow Up Care 05/22/2024 10:12:35 With:MATEO DICK, Eusebia Beckman, RODRIGOL Address: [facility] [address] , [place] [address]- When:Within 3 Month(s) Comments:w/Cysto/FISH Cytol [facility] 06-03-2024 Note Patient Education Oncology Bladder Cancer [...] Follow these instructions at home: ??? Take scyx-ijq-wgcmrhq and prescription medicines only as told by [...] important. Where to find more information ??? [employer] (ACS): cancer.org ??? National Cancer [place] (NCI): cancer.gov Contact a health care provider [...] information is n (more content not included)... [facility] 06-03-2024 Evaluation + Plan note Diagnostic Tests PendingUroVysion Fish and Urine Cyto ([facility]) 06/03/24 Future Scheduled TestsUrine Culture 12/31/23 [facility] 05-23-2024 History of Presen t illness Narrative Images from the original note were not included. PATIENT NAME: Kingsley Jennings CLINIC NO.: [id number] ATTENDING PHYSICIAN: Jacek Cano MD DATE OF SERVICE: 05/23/[address] Eusebia Galindo [address] [place] [address] thank you for referring Kingsley Jennings for [...] states he takes this off and on). Vtzccmkrownkr-Eqbhazdh-Cnhmdx (MULTIVITAMIN 50 PLUS) tab Take 1 tablet [...] Range Status 05/02/2024 13.8 % Final Abs Jerome Date Value Ref Range Status 05/02/2024 0.67 [...] Hematology/Oncology. Hematology and Oncology Services Provided at: [place], [place] CC: Patient has been constipated the last few days, he has taken Purelax but that doesn't seem to help. Bhargavi Montoya MA documented in this encounter [facility] 05-23-2024 Note HNO ID: [id number] Author: JACEK CANO MD Service: ? Author Type: Physician Type: Progress Notes Filed: 05/23/2024 14:01 Note Text: PATIENT NAME: Kingsley Jennings [facility] NO.: [id number] ATTENDING PHYSICIAN: Jacek Cano MD DATE OF SERVICE: 05/23/[address] Eusebia Galindo [address] [place] [address] thank you for referring Kingsley Jennings for [...] states he takes this off and on). Uzajnubvuvzpg-Dnjbnwag-Reicyk (MULTIVITAMIN 50 PLUS) tab Take 1 tablet [...] of breath CARDIOVAS (more content not included)... [facility] 05-23-2024 Instructions Jacek Cano MD - 05/23/2024 1:45 PM EST F/u in 3 months documented in this encounter [facility] 05-23-2024 Note HNO ID: [id number] Author: BHARGAVI MONTOYA MA Service: ? Author Type: Lineman Apprentice Type: Progress Notes Filed: 05/23/2024 14:01 Note Text: Patient has been constipated the last few days, he has taken Purelax but that doesn't seem to help. Bhargavi Montoya MA [facility] 05-22-2024 Hospital Discharg e instructions Patient [...] Follow these instructions at home: Medicines Take fndw-afk-qvfzvqi and prescription medicines only as told by [...] provider. Document Revised: 02/14/2023 Document Reviewed: 02/14/[address] Patient Education 2023 [employer]. Follow Up Care 05/21/2024 10:13:07 With:Keep previously scheduled follow-up appointment. Address: When: Unknown [facility] 05-22-2024 Note Patient Education Gastroenterology Abdominal Pain, [...] these instructions at home: Medicines ??? Take yybh-oet-onwpkds and prescription medicines only as told by [...] provider. Document Revised: 02/14/2023 Document Reviewed: 02/14/2023 [employer] Patient Education ? [address] [facility] 05-20-2024 Telephone encounter Note No need to continue cipro. Thanks. [facility] 05-20-2024 Miscellaneous Notes No need to continue [...] Liana Mcghee RN documented in this encounter [facility] 05-20-2024 Telephone encounter Note Pt calls stating [...] have other recommendations. Thanks Liana Mcghee RN [facility] 05-16-2024 Telephone encounter Note Pt planned on picking this up today and starting it. Liana Mcghee RN [facility] 05-16-2024 Miscellaneous Notes Pt planned on picking this up today and starting it. Liana Mcghee, KANDIS Yes, ok to start antibiotics. Thanks Call placed to pt and due to the snow, he'd like this filled at his local pharmacy because our office is too far to drive. Script called to [facility] in [place]. A culture was not ordered. Per lab [...] Liana Mcghee RN documented in this encounter [facility] 05-16-2024 Telephone encounter Note Yes, ok to start antibiotics. Thanks [facility] 05-16-2024 Telephone encounter Note Call placed to pt and due to the snow, he'd like this filled at his local pharmacy because our office is too far to drive. Script called to [facility] in [place]. A culture was not ordered. Per lab we cannot add a culture to this specimen. Is it ok for pt to get started on antibiotics since he's symptomatic and he's not able to come to the office due to the snow? Please advise Liana Mcghee RN [facility] 05-16-2024 Telephone encounter Note I sent ciprofloxacin to pharmacy. Please tell him to take it. Thanks [facility] 05-16-2024 Telephone encounter Note I need urine culture results. Send cipro 500mg daily for 5 days. Thanks. [facility] 05-15-2024 Telephone encounter Note Pt calling requesting results of urinalysis. Pt states he continues to have symptoms. Please advise Liana Mcghee RN [facility] 05-02-2024 Note HNO ID: [id number] Author: JADE CARTER RN Service: ? Author [...] RN unclamped for 1 mins. Pt states hesham feels a little better 1128- RN unclamped howe at this time. Drained 750 ml of clear yellow urine. 1135- howe d/c without isses pt adrián well. [facility] 05-02-2024 History of Presen t illness [...] pt adrián well. documented in this encounter [facility] 05-02-2024 Note HNO ID: [id number] Author: HILARIA WILSON MA Service: ? Author Type: Lineman Apprentice Type: Progress Notes Filed: 05/02/2024 08:49 Note Text: UA performed as ordered. Hilaria Wilson MA [facility] 05-02-2024 History of Presen t illness Narrative UA performed as ordered. Hilaria Wilson MA documented in this encounter [facility] 05-02-2024 History of Presen t illness Narrative Images from the original note were not included. PATIENT NAME: Kingsley Jennings [facility] NO.: [id number] ATTENDING PHYSICIAN: Jacek Cano MD DATE OF SERVICE: May 02, [address] Eusebia Galindo [address] [place] [address] thank you for referring Kingsley Jennings for [...] states he takes this off and on). Fnvkaoaqmzlxr-Jjrtuzvc-Vurohw (MULTIVITAMIN 50 PLUS) tab Take 1 tablet [...] Range Status 05/02/2024 13.8 % Final Abs Jerome Date Value Ref Range Status 05/02/2024 0.67 [...] with Dr. Sullivan. . Selena Donnelly APRN, SUPERVISOR FABRICATION DEPARTMENT-C, [facility] Hematology and Oncology Services Provided at: [place], [place] CC: documented in this encounter [facility] 05-02-2024 Note HNO ID: [id number] Author: SELENA DONNELLY APRN.TREVER Service: ? Author Type: Nurse Practitioner Type: Progress Notes Filed: 05/02/2024 11:28 Note Text: PATIENT NAME: Kingsley Jennings CLINIC NO.: [id number] ATTENDING PHYSICIAN: Jacek Cano MD DATE OF SERVICE: May 02, [address] Eusebia Galindo [address] [place] [address] thank you for referring Kingsley Jennings for [...] states he takes this off and on). Tamuuvahgkspq-Xxvdpvgj-Pqttdw (MULTIVITAMIN 50 PLUS) tab Take 1 tablet [...] pain or swelli (more content not included)... [facility] 04-28-[address] labs for appt on 05/02 if needed. Brianna Landaverde MA documented in this encounter [facility] 04-28-2024 Telephone encounter Note Please place labs for appt on 05/02 if needed. Brianna Landaverde MA [facility] 04-25-2024 Note HNO ID: [id number] Author: OTTONIEL HOGAN RN Service: ? Author Type: Registered Nurse Type: Progress Notes Filed: 04/25/2024 14:56 Note Text: 0830- Patient arrived to infusion room. VSS. 0900- 16 mozambican howe inserted per policy, clear yellow urine [...] concerns at this time. Ottoniel Hogan RN [facility] 04-25-2024 History of Presen t illness Narrative 0830- Patient arrived to infusion room. VSS. 0900- 16 mozambican howe inserted per policy, clear yellow urine [...] Charly Kearney RN documented in this encounter [facility] 04-25-2024 Note HNO ID: [id number] Author: CHARLY KEARNEY RN Service: ? Author Type: Registered Nurse Type: Progress Notes Filed: 04/25/2024 14:56 Note Text: UA results reviewed and adequate for treatment Charly Kearney RN [facility] 04-25-2024 Note HNO ID: [id number] Author: BHARGAVI MONTOYA MA Service: ? Author Type: Lineman Apprentice Type: Progress Notes Filed: 04/25/2024 08:41 Note Text: UA performed as ordered. Bhargavi Montoya MA [facility] 04-25-2024 History of Presen t illness Narrative UA performed as ordered. Bhargavi Montoya MA documented in this encounter [facility] 04-18-2024 Note HNO ID: [id number] Author: JADE CARTER RN Service: ? Author [...] cream per TREVER [place] pt states understanding [facility] 04-18-2024 History of Presen t illness [...] to notify pt. documented in this encounter [facility] 04-18-2024 Note HNO ID: [id number] Author: SYDNEY ESTEVES RN Service: ? Author [...] like eucerin. Treatment rn to notify pt. [facility] 04-18-2024 Nurse Note UA performed as ordered. Hilaria Wilson MA [facility] 04-18-2024 Nurse Note UA performed as ordered. Hilaria Wilson MA documented in this encounter [facility] 04-11-2024 Note HNO ID: [id number] Author: JADE CARTER RN Service: ? Author [...] 1130- Rn walked pt to check out [facility] 04-11-2024 History of Presen t illness [...] to check out documented in this encounter [facility] 04-11-2024 Nurse Note UA performed as ordered. Bhargavi Montoya MA [facility] 04-11-2024 Nurse Note UA performed as ordered. Bhargavi Montoya MA documented in this encounter [facility] 04-11-2024 History of Presen t illness Narrative Images from the original note were not included. PATIENT NAME: Kingsley Jennings [facility] NO.: [id number] ATTENDING PHYSICIAN: Jacek Cano MD DATE OF SERVICE: April 11, [address] Eusebia Galindo [address] [place] [address] thank you for referring Kingsley Jennings for [...] states he takes this off and on). Ihrusvkpxztzw-Ukzdfqbo-Apwmgu (MULTIVITAMIN 50 PLUS) tab Take 1 tablet [...] Range Status 03/28/2024 17.3 % Final Abs Jerome Date Value Ref Range Status 03/28/2024 0.85 [...] with Dr. Sullivan. . Selena Donnelly APRN, SUPERVISOR FABRICATION DEPARTMENT-C, [facility] Hematology and Oncology Services Provided at: [place], [place] CC: documented in this encounter [facility] 04-11-2024 Note HNO ID: [id number] Author: SELENA DONNELLY APRN.COKE WORKER Service: ? Author Type: Nurse Practitioner Type: [place] Notes Filed: 04/11/2024 10:34 Note Text: PATIENT NAME: Kingsley Jennings [facility] NO.: [id number] ATTENDING PHYSICIAN: Jacek Cano MD DATE OF SERVICE: April 11, [address] Eusebia Galindo [address] [place] [address] thank you for referring Kingsley Jennings for [...] states he takes this off and on). Ychlmotojrkfs-Fcuvpiyw-Uyrsnb (MULTIVITAMIN 50 PLUS) tab Take 1 tablet [...] for dysuria, fr (more content not included)... [facility] 04-04-2024 Note HNO ID: [id number] Author: BRISA DONALD RN Service: ? Author [...] urine in bag. Pericare done per pt. [facility] 04-04-2024 History of Presen t illness [...] culture as well. documented in this encounter [facility] 04-04-2024 Nurse Note UA performed as ordered. Hilaria Wilson MA [facility] 04-04-2024 Nurse Note UA performed as ordered. Hilaria Wilson MA documented in this encounter [facility] 04-04-2024 Note HNO ID: [id number] Author: SYDNEY ESTEVES RN Service: ? Author Type: Registered Nurse Type: Progress Notes Filed: 04/04/2024 13:17 Note Text: UA with small amount of hemoglobin and moderate amount of leukocytes. Pt asymptomatic and results reviewed with team. Okay to proceed with BCG treatment today. Urine will be sent for culture as well. [facility] 04-03-2024 Telephone encounter Note Patient has an appt on 04/11/24. Would you like labs, if so place orders. Bhargavi Montoya MA [facility] 04-03-2024 Miscellaneous Notes Patient has an appt on 04/11/24. Would you like labs, if so place orders. Bhargavi Montoya MA documented in this encounter [facility] 04-01-2024 Telephone encounter Note CYCLE 1/DAY 1 [...] after hours number protocol. Liana Mcghee RN [facility] 04-01-2024 Miscellaneous Notes CYCLE 1/DAY 1 POST [...] after hours number protocol. Liana Mcghee RN documented in this encounter [facility] 03-28-2024 Note HNO ID: [id number] Author: ANA KENNEY RN Service: ? Author Type: Registered Nurse Type: Progress Notes Filed: 03/28/2024 11:50 Note Text: 0920 -- BCG procedure explained to pt and pt denies questions or concerns. Pt prepared and ready for procedure. 09 -- Urojet instilled per orders, followed by [...] room where son awaits. Ana Kenney RN [facility] 03-28-2024 History of Presen t illness Narrative 09 -- BCG procedure explained to pt and [...] Ana Kenney RN documented in this encounter [facility] 03-28-2024 Nurse Note UA performed as ordered. Hilaria Wilson MA [facility] 03-28-2024 Nurse Note UA performed as ordered. Hilaria Wilson MA documented in this encounter [facility] 03-28-2024 History of Presen t illness Narrative Images from the original note were not included. PATIENT NAME: Kingsley Jennings CLINIC NO.: [id number] ATTENDING PHYSICIAN: Jacek Cano MD DATE OF SERVICE: March 13, [address] Eusebia Galindo [address] [place] [address] thank you for referring Kingsley Jennings for [...] states he takes this off and on). Olnvhokvibmnf-Mdeoblpt-Tyysil (MULTIVITAMIN 50 PLUS) tab Take 1 tablet [...] Range Status 03/28/2024 17.3 % Final Abs Jerome Date Value Ref Range Status 03/28/2024 0.85 [...] in 3 weeks . Selena Donnelly APRN, SUPERVISOR FABRICATION DEPARTMENT-C, [facility] Hematology and Oncology Services Provided at: [place], [place] CC: documented in this encounter [facility] 03-28-2024 Note HNO ID: [id number] Author: SELENA DONNELLY APRN.TREVER Service: ? Author Type: Nurse Practitioner Type: Progress Notes Filed: 03/28/2024 12:37 Note Text: PATIENT NAME: Kingsley Jennings [facility] NO.: [id number] ATTENDING PHYSICIAN: Jacek Cano MD DATE OF SERVICE: March 13, [address] Eusebia Galindo [address] [place] [address] thank you for referring Kingsley Jennings for [...] states he takes this off and on). Nljxcmlvthxxh-Omuwokwn-Xtmdkl (MULTIVITAMIN 50 PLUS) tab Take 1 tablet [...] muscle pain. SKIN: (more content not included)... [facility] 03-25-2024 Telephone encounter Note Called and spoke with pt's son and explained to him that we will check his urine prior to treatment on Sunday. Again pt's son states pt is not having any s/s of UTI and he was just checking his urine prior to his treatment. Liana Mcghee RN [facility] 03-25-2024 Miscellaneous Notes Called and spoke with [...] the MA Schedule for the POC UA. Cornelia Cotton, ELÍAS I signed. Thanks Discussed with Dr Cano [...] was positive for a UTI because the [facility] ed information that he received states that [...] Liana Mcghee RN documented in this encounter [facility] 03-25-2024 Telephone encounter Note I added the Patient at 815 am on 03/28/24 before Treatment to the MA Schedule for the POC UA. ELÍAS Browning [facility] 03-25-2024 Telephone encounter Note I signed. Thanks [facility] Work Phone: 03-25-2024 Telephone encounter Note Discussed with Dr Cano and he would like to do a POC urine when pt is here for treatment on Sunday. AV/JR: Please sign pending orders. PSS: please add to POC schedule prior to treatment appointment. Liana Mcghee RN [facility] 03-25-2024 Telephone encounter Note Order urine culture. Thanks [facility] 03-25-2024 Telephone encounter Note Pt is [...] active UTI. Please advise Liana Mcghee RN [facility] 03-21-2024 Note HNO ID: [id number] Author: LIANA MCGHEE RN Service: ? Author [...] minutes REFERRAL (RECOMMENDATION): N/A Liana Mcghee RN [facility] 03-21-2024 History of Presen t illness [...] Liana Mcghee RN documented in this encounter [facility] 03-17-2024 Telephone encounter Note Patient has an appt on 03/28/24. Would you like labs, if so place orders. Bhargavi Montoya MA [facility] 03-17-2024 Miscellaneous Notes Patient has an appt on 03/28/24. Would you like labs, if so place orders. Bhargavi Montoya MA documented in this encounter [facility] 03-14-2024 History of Presen t illness Narrative Images from the original note were not included. PATIENT NAME: Kingsley Jennings CLINIC NO.: [id number] ATTENDING PHYSICIAN: Jacek Cano MD DATE OF SERVICE: March 13, [address] Eusebia Galindo [address] [place] [address] thank you for referring Kingsley Jennings for [...] Dr. Eusebia Galindo [address] [place] [address] thank you for allowing me to participate in Kingsley Jennings care, if there are any questions or concerns please do not hesitate to contact me at the number below. I spent a total of 60 minutes on the date of the service which included preparing to see the patient, hvnx-db-swbt patient care, completing clinical documentation, obtaining and/or reviewing separately obtained history, performing a medically appropriate examination, counseling and educating the patient/family/caregiver, ordering medications, tests, or procedures, communicating with other HCPs (not separately reported), independently interpreting results (not separately reported), communicating results to the patient/family/caregiver, and care coordination (not separately reported). Jacek Cano MD. Hematology/Medical Oncology [facility] [phone] CC: documented in this encounter [facility] 03-14-2024 Instructions Jacek Cano MD - 03/14/2024 11:00 AM EDT Schedule intravesical BCG x 6 treatments F/u in 2 weeks documented in this encounter [facility] 03-14-2024 Note HNO ID: [id number] Author: JACEK CANO MD Service: ? Author Type: Physician Type: Progress Notes Filed: 03/14/2024 11:24 Note Text: PATIENT NAME: Kingsley Jennings [facility] NO.: [id number] ATTENDING PHYSICIAN: Jacek Cano MD DATE OF SERVICE: March 13, [address] Eusebia Galindo [address] [place] [address] thank you for referring Kingsley Jennings for [...] Deferred LABS: No (more content not included)... [facility] 02-29-2024 Hospital Discharg e instructions Patient [...] cells. Follow these instructions at home: Take zihm-qkl-ajtajfe and prescription medicines only as told by [...] is important. Where to find more information [place] [employer] Society (ACS): cancer.org National Cancer Kent (NCI): cancer.gov Contact a health care provider [...] provider. Document Revised: 04/10/2022 Document Reviewed: 04/10/[address] Patient Education 2023 [employer]. Follow Up Care 02/15/2024 11:46:36 With:MATEO DICK, Eusebia Beckman, URL Address: [address] [place] [address]- When: Unknown [facility] 02-29-2024 Note Patient Education Oncology Bladder Cancer [...] Follow these instructions at home: ? Take fjjb-dlr-ectxpvo and prescription medicines only as told by [...] important. Where to find more information ? [place] Cancer [employer] (ACS): cancer.org ? National Cancer Kent (NCI): cancer.gov Contact a health care provider [...] discuss any q (more content not included)... [facility] 02-15-2024 Hospital Discharg e instructions Patient [...] cells. Follow these instructions at home: Take vfkf-tvw-gooceih and prescription medicines only as told by [...] is important. Where to find more information [place] Cancer Society (ACS): cancer.org National Cancer Kent (NCI): cancer.gov Contact a health care provider [...] provider. Document Revised: 04/10/2022 Document Reviewed: 04/10/2022 [employer] Patient Education 2023 [employer]. Follow Up Care 01/15/2024 11:39:53 With:MATEO DICK, Eusebia Beckman, URL Address: [address] [place] [address]- When: Unknown [facility] 02-15-2024 Note Patient Education Oncology Bladder Cancer [...] Follow these instructions at home: ? Take moni-voz-hfrlusx and prescription medicines only as told by [...] important. Where to find more information ? [place] Cancer Society (ACS): cancer.org ? National Cancer Kent (NCI): cancer.gov Contact a health care provider [...] discuss any q (more content not included)... [facility] 01-28-2024 Note Remains stable witho ut concerning symptoms [facility] 01-28-2024 Note Lipid abnormalities are well controlled Continue crestor [facility] 01-28-2024 Note Coronary artery dise ase is stable without any concerning symptoms Continue GDMT- ASA, coreg, crestor and imdur continue risk factor modifications- heart healthy diet, regular exercise as tolerated and continue all medications. [facility] 01-28-2024 Note Hypertension is well controlled currently. Continue coreg, norvasc, and imdur Renal function normal [facility] 01-28-2024 Note [facility]TP CARDIOLOGY PROGR ESS [...] FINAL IMPRESSIONS: 1. 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 [facility] 01-28-2024 Note Pt is here for a six month follow up. Pt denies sob, chest pain, palpatiations. Pt had pre surgery testing done. Review of Systems Cardiovascular: Negative for leg swelling (L>R). Musculoskeletal: Positive for back pain. All other systems reviewed and are negative. [facility] 01-28-2024 Note RCRI= 2 points Class III Risk 10.1 % 30-day risk of , HI, or cardiac arrest From a cardiac perspective pt may proceed with planned surgery/urological procedure, he is a moderate risk for a moderate to high risk procedure. Prefer Aspirin to not be held, but if absolutely necessary may hold 5-7 days. Please monitor hemodynamics carefully and prevent any major fluid shifts. [facility] 01-15-2024 Evaluation + Plan note Extrac ariadna from: Title:Urology Progress Note Author:Andrey GALINDO MD Date:01/15/24 Impression and Plan Impression: #1. He has bladder tumors. These need to get resected. Plan: #1. He is getting scheduled for cystoscopy and TURBT under anesthesia. Future Appointments Appointment Date:02/15/2024 08:45:00 AM Scheduled Provider:Eusebia GALINDO MD Location:[facility] Appointment Type:URO Office Visit Future Scheduled Tests Laboratory* Urine Culture 12/31/23 [facility] 09-03-2024 Hospital Discharge instructions Patient Education [...] Up Care 12/31/2023 09:27:58 With:Eusebia GALINDO Address: [address] [place], [place] [id number] Business (1) When: Unknown Comments:Office will call to schedule follow up [facility] 09-03-2024 NoteProgress Note-Physician Patient: KINGSLEY JENNINGS Age: 88 years Sex: Male : 1935 Associated Diagnoses: None Author: Eusebia GALINDO MD Subjective X this gentleman has gross [...] list: All Problems Hypertension / SNOMED CT 0232576948 / Confirmed BPH with elevated PSA / SNOMED CT 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 / Confirmed Right inguinal hernia / SNOMED CT 656339405 / Confirmed Hypothyroidism / SNOMED CT 26511525 / Confirmed Arteriosclerotic heart disease (ASHD) / SNOMED CT 94286989 / Confirmed High cholesterol / SNOMED CT 18875355 / Confirmed Right groin pain / SNOMED CT 1052906125 / Confirmed 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 Ischemic heart disease (2770926208): Resolved. Family History: Bilateral primary ovarian cancer Mother Procedure history: Colonoscopy (370640309) on 06/30/2009 at 73 Years. Cardiac catheterization (97346115). Coronary angioplasty (95408523). Repair of inguinal hernia (68871477). Comments: 01/15/2019 15:25 EDT - Rogelio Jha [...] scheduled for cystoscopy and TURBT under anesthesia. [facility]Result Comment: Electronically Signed By: MATEO DICK, Eusebia uPente\Date and Time Signed: 01/15/24 11:18 EDT 01-15-2024 [...] if you have a fever over 100 degrees.[facility] 12-31-2023 Evaluation + Plan note Future Scheduled Tests Laboratory* Urine Culture 12/31/23 [facility] 08-13-2024 Evaluation + Plan note Diagnostic Tests Pending * Creatinine 12/25/23 [facility] 08-13-2024 Evaluation + Plan note Diagnostic Tests Pending * Urine Cytology ([facility]) 12/25/23 [facility] 08-13-2024 Hospital Discharge instructions Patient Education [...] including vitamins, herbs, eye drops, creams, and wdrz-afy-mcsnusq medicines. Any problems you or family members [...] provider tells you to take them. Taking rutd-hmx-uzkfwei medicines, vitamins, herbs, and supplements. Tests You [...] Follow these instructions at home: Medicines Take uoje-npu-igkcvvw and prescription medicines only as told by [...] provider. Document Revised: 01/11/2022 Document Reviewed: 12/10/[address] Patient Education 2022 [employer]. 12/25/2023 09:15:16 Hematuria, Adult Hematuria, Adult Hematuria [...] Follow these instructions at home: Medicines Take ezmq-hlc-vldivai and prescription medicines only as told by [...] or the blood stops without treatment. Take zcxt-ico-tyalrfo and prescription medicines only as told by your health care provider. Drink enough fluid to keep your urine pale yellow. This information is not intended to replace advice given to you by your health care provider. Make sure you discuss any questions you have with your health care provider. Document Revised: 12/29/2020 Document Reviewed: 12/29/[address] Patient Education 2022 [employer]. Follow Up Care 12/06/2023 14:27:33 With:JONNY BATEMAN, BRISA Renetta, URL Address: [place] [phone] When: Unknown [facility] 08-13-2024 NotePatient Education Urology Cystoscopy Cystoscopy [...] including vitamins, herbs, eye drops, creams, and bghv-ypm-wewketj medicines. ? Any problems you or family [...] tells you to take them. ? Taking bbhf-zxh-iwlnsja medicines, vitamins, herbs, and supplements. Tests You [...] these instructions at home: Medicines ? Take fcwq-trw-itvozkr and prescription medicines only as told by [...] your health care provider, (more content not included)...[facility] Chief [...] FINAL IMPRESSIONS: 1. 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 Echocardiogram 12/2021: Global left ventricular systolic function is normal; EF 55 to 60%. Mild biatrial dilatation. Mild to moderate tricuspid regurgitati (more content not included)...[facility]09-26-2023 [facility] Cardiology Clinic Note Chief Complaint: Patient here [...] FINAL IMPRESSIONS: 1. 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 Labs 09/18/2022: Total cholesterol 119, LDL 63, (more content not included)...[facility]01-10-2023 NotePROCEDURE: XR LSPINE MIN 4 VIEWS [...] Electronically authenticated by: MACY MICHAEL Date: 2022-05-23 08:14[facility]01-10-2023 NotePROCEDURE: XR HIP LT 2 3V W [...] Electronically authenticated by: MACY MICHAEL Date: 2022-05-23 08:09[facility]08-19-2022 NoteMR#: [id number] [facility] Pt. Name: Kingsley Jennings Admitted: 12/28/2021 [...] as bypass graft angiography. Coronary angiogram showed point hope ira arteries left main is calcified but patent. [...] P/Peterson Jensen MD Date Trans: 12/30/2021 09:11 A/mmo [id number] cc: Jennifer Estes M.D. [address], [facility] [id number] Future Appointments Appointment Date:01/08/2024 08:30:00 AM Scheduled Provider: Location:[facility] Appointment Type:Urology CALL PAT FT Appointment Date:01/15/2024 10:45:00 AM Scheduled Provider: Location:[facility] Appointment Type:Urology FT Future Scheduled Tests Laboratory* Urine Culture 12/31/23 [facility] evaluation + Plan note Future Appointments Appointment Date:02/29/2024 11:00:00 AM Scheduled Provider:Eusebia GALINDO MD Location:[facility] Appointment Type:URO Office Visit Future Scheduled Tests Laboratory* Urine Culture 12/31/23 [facility] evaluation + Plan note Future Appointments Appointment Date:02/29/2024 11:00:00 AM Scheduled Provider:Eusebia GALINDO MD Location:[facility] Appointment Type:URO Office Visit Diagnostic Tests Pending * Urine Culture 02/18/24 Future Scheduled Tests Laboratory* Urine Culture 12/31/23 [facility] Evaluation + Plan note Future Appointments Appointment Date:06/03/2024 03:30:00 PM Scheduled Provider:Eusebia GALINDO MD Location:[facility] Appointment Type:URO Procedure 15 min Future Scheduled Tests Laboratory* Urine Culture 12/31/23 [facility] evaluation noteNo assessment information available [facility] Work Phone: Evaluation note* Diagnosis 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 [facility] Diagnosis Malignant neoplasm of urinary bladder, unspecified site (HCC)- Primary [facility] [place] [facility] Diagnosis 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 documented in this encounter [facility] note* Diagnosis 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 Urinary frequency [facility] [place]* Diagnosis Urinary frequency- Primary High risk medication use Encounter for long-term (current) use of other medications documented in this encounter [facility] note* Diagnosis Malignant neoplasm of urinary bladder, unspecified site (HCC)- Primary documented in this encounter [facility] note* Diagnosis 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 documented in this encounter [facility] note* Diagnosis High risk medication use- Primary Encounter for long-term (current) use of other medications Urinary frequency Encounter for long-term (current) use of other medications documented in this encounter [facility] note* Diagnosis Malignant neoplasm of urinary bladder, unspecified site (HCC)- Primary documented in this encounter [facility] note* Diagnosis Malignant neoplasm of urinary bladder, unspecified site (HCC)- Primary Urinary frequency documented in this encounter [facility] note* Diagnosis Malignant neoplasm of urinary bladder, unspecified site (HCC)- Primary [facility] [place] [facility]* Diagnosis Malignant neoplasm of urinary bladder, unspecified site (HCC)- Primary [facility] [place] [facility]* Diagnosis Malignant neoplasm of urinary bladder, unspecified site (HCC) Urinary frequency documented in this encounter [facility] note* Diagnosis Malignant neoplasm of urinary bladder, unspecified site (HCC)- Primary documented in this encounter [facility] note* Diagnosis Urinary frequency [facility] [place] [facility]* Diagnosis Malignant neoplasm of urinary bladder, unspecified site (HCC)- Primary documented in this encounter [facility] note* Diagnosis Malignant neoplasm of urinary bladder, unspecified site (HCC)- Primary [facility] [place] [facility]* Diagnosis Malignant neoplasm of urinary bladder, unspecified site (HCC)- Primary [facility] [place] [facility]* Diagnosis Malignant neoplasm of urinary bladder, unspecified site (HCC)- Primary [facility] [place] [facility]* Diagnosis Malignant neoplasm of urinary bladder, unspecified site (HCC)- Primary [facility]* Diagnosis Malignant neoplasm of urinary bladder, unspecified site (HCC)- Primary [facility] Narrative No data available for this section [facility] Hospital Discharge instructions No data available for this section [facility] Progress note No data available for this section [facility] Summary Purpose Family History No [...] and content) DATE CREATED AUTHOR 01/08/2022 [facility] DATE CREATED AUTHOR AUTHOR'S ORGANIZ ATION 08/06/2022 [facility] DATE CREATED AUTHOR AUTHOR'S ORGANIZ ATION 07/26/2023 [facility] DATE CREATED AUTHOR AUTHOR'S ORGANIZ ATION 01/28/2024 [facility] DATE CREATED AUTHOR AUTHOR'S ORGANIZ ATION 02/22/2024 [facility] DATE CREATED AUTHOR AUTHOR'S ORGANIZ ATION 03/15/2024 [facility] DATE CREATED AUTHOR AUTHOR'S ORGANIZ ATION 05/24/2024 [facility] DATE CREATED AUTHOR AUTHOR'S ORGANIZ ATION 05/26/2024 [facility] DATE CREATED AUTHOR AUTHOR'S ORGANIZ ATION 06/13/2024 [facility] DATE CREATED AUTHOR AUTHOR'S ORGANIZ ATION 06/29/2024 [facility] Patient Care team informatio n (unrecognized [...] February 21, 2024 End: February 21, 2024 Open Shank Coverer Relationship Specialty Start Date End Date Eusebia Galindo MD [address] [address] PCP - General Urology 03/03/24 Open Shank Coverer Relationship Specialty Start Date End Date Jennifer Estes MD [address] [place] [address] PCP - General Family Medicine 03/14/24 Open Shank Coverer Relationship Specialty Start Date End Date Jennifer Estes MD [address] [place] [address] PCP - General Family Medicine 03/14/24 Open Shank Coverer Relationship Specialty Start Date End Date Jennifer Estes MD [address] [place] [address] PCP - General Family Medicine 03/14/24 Liana Mcghee, RN [address] [place] [address] [place] [address] Specialty Vice President Financial Hematology/Oncology 03/20/24 Jacek Cano MD [address] [address] Physician Hematology/Oncology 03/20/24 Open Shank Coverer Relationship Specialty Start Date End Date Jennifer Estes MD [address] [place] [address] PCP - General Family Medicine 03/14/24 Liana Mcghee RN [address] [place] [address] Specialty Vice President Financial Hematology/Oncology 03/20/24 Jacek Cano MD [address] [place] [address] Physician Hematology/Oncology 03/20/24 Open Shank Coverer Relationship Specialty Start Date End Date Jennifer Estes MD [address] [place] [address] PCP - General Family Medicine 03/14/24 Liana Mcghee RN [address] [place] [address] Specialty Vice President Financial Hematology/Oncology 03/20/24 Jacek Cano MD [address] [place] [address] Physician Hematology/Oncology 03/20/24 Open Shank Coverer Relationship Specialty Start Date End Date Jennifer Estes MD [address] [place] [address] PCP - General Family Medicine 03/14/24 Liana Mcghee RN [address] [place] [address] Specialty Vice President Financial Hematology/Oncology 03/20/24 Jacek Cano MD [address] [place] [address] Physician Hematology/Oncology 03/20/24 Open Shank Coverer Relationship Specialty Start Date End Date Jennifer Estes MD [address] [place] [address] PCP - General Family Medicine 03/14/24 Liana Mcghee RN [address] [place] [address] Specialty Vice President Financial Hematology/Oncology 03/20/24 Jacek Cano MD [address] [place] [address] Physician Hematology/Oncology 03/20/24 Open Shank Coverer Relationship Specialty Start Date End Date Jennifer Estes MD [address] [place] [address] PCP - General Family Medicine 03/14/24 Liana Mcghee RN [address] [place] [address] Specialty Vice President Financial Hematology/Oncology 03/20/24 Jacek Cano MD [address] [place] [address] Physician Hematology/Oncology 03/20/24 Open Shank Coverer Relationship Specialty Start Date End Date Jennifer Estes MD [address] [place] [address] PCP - General Family Medicine 03/14/24 Liana Mcghee RN [address] [place] [address] Specialty Vice President Financial Hematology/Oncology 03/20/24 Jacek Cano MD [address] [place] [address] Physician Hematology/Oncology 03/20/24 Open Shank Coverer Relationship Specialty Start Date End Date Jennifer Estes MD [address] [place] [address] PCP - General Family Medicine 03/14/24 Liana Mcghee RN [address] [place] [address] Specialty Vice President Financial Hematology/Oncology 03/20/24 Jacek Cano MD [address] [place] [address] Physician Hematology/Oncology 03/20/24 Open Shank Coverer Relationship Specialty Start Date End Date Jennifer Estes MD [address] [place] [address] PCP - General Family Medicine 03/14/24 Liana Mcghee RN [address] [address] Specialty Vice President Financial Hematology/Oncology 03/20/24 Jacek Cano MD [address] [place] [address] Physician Hematology/Oncology 03/20/24 Open Shank Coverer Relationship Specialty Start Date End Date Jennifer Estes MD [address] [place] [address] PCP - General Family Medicine 03/14/24 Liana Mcghee RN [address] [place] [address] Specialty Vice President Financial Hematology/Oncology 03/20/24 Jacek Cano MD [address] [place] [address] Physician Hematology/Oncology 03/20/24 Open [place]ank Coverer Relationship Specialty Start Date End Date Jennifer Estes MD [address] [place] [address] PCP - General Family Medicine 03/14/24 Liana Mcghee RN [address] [place] [address] Specialty Vice President Financial Hematology/Oncology 03/20/24 Jacek Cano MD [address] [place] [address] Physician Hematology/Oncology 03/20/24 Open [place]ank Coverer Relationship Specialty Start Date End Date Jennifer Estes MD [address] [place] [address] PCP - General Family Medicine 03/14/24 Liana Mcghee RN [address] [place] [address] Specialty Vice President Financial Hematology/Oncology 03/20/24 Jacek Cano MD [address] [place] [address] Physician Hematology/Oncology 03/20/24 Open [place]ank Coverer Relationship Specialty Start Date End Date Jennifer Estes MD [address] [facility] [place] [address] PCP - General Family Medicine 03/14/24 Liana Mcghee, RN [address] [place] [address] Specialty Vice President Financial Hematology/Oncology 03/20/24 Jacek Cano MD [address] [place] [address] Physician Hematology/Oncology 03/20/24 Open [place] Coverer Relationship Specialty Start Date End Date Jennifer Estes MD [address] [place] [address] PCP - General Family Medicine 03/14/24 Liana Mcghee RN [address] [place] [address] Specialty Vice President Financial Hematology/Oncology 03/20/24 Jacek Cano MD [address] [place] [address] Physician Hematology/Oncology 03/20/24 Open [place] Coverer Relationship Specialty Start Date End Date Jennifer Estes MD [address] [place] [address] PCP - General Family Medicine 03/14/24 Liana Mcghee RN [address] [place] [address] Specialty Vice President Financial Hematology/Oncology 03/20/24 Jacek Cano MD [address] [place] [address] Physician Hematology/Oncology 03/20/24 Open [place] Coverer Relationship Specialty Start Date End Date Jennifer Estes MD [address] [place] [address] PCP - General Family Medicine 03/14/24 Liana Mcghee RN [address] [place] [address] Specialty Vice President Financial Hematology/Oncology 03/20/24 Jacek Cano MD [address] [place] [address] Physician Hematology/Oncology 03/20/24 Open [place] Coverer Relationship Specialty Start Date End Date Jennifer Estes MD [address] [place] [address] PCP - General Family Medicine 03/14/24 Liana Mcghee RN [address] [place] [address] Specialty Vice President Financial Hematology/Oncology 03/20/24 Jacek Cano MD [address] [place] [address] Physician Hematology/Oncology 03/20/24 Goals (unrecognized section and content) Goals may be documented in a n alternate section Source Comments (unrecognize d section and content) In the event this informatio n is protected by the Federal Confidentiality of Alcohol and Drug Abuse Patient Records regulations: The Federal rules restrict any use of the information to criminally investigate or prosecute any alcohol or drug abuse patient.[facility] the event this information is protected by the Federal Confidentiality of Alcohol and Drug Abuse Patient Records regulations: The Federal rules restrict any use of the information to criminally investigate or prosecute any alcohol or drug abuse patient.[facility] the event this information is protected by the Federal Confidentiality of Alcohol and Drug Abuse Patient Records regulations: The Federal rules restrict any use of the information to criminally investigate or prosecute any alcohol or drug abuse patient.[facility]In the event this information is protected by the Federal Confidentiality of Alcohol and Drug Abuse Patient Records regulations: The Federal rules restrict any use of the information to criminally investigate or prosecute any alcohol or drug abuse patient.[facility]In the event this information is protected by the Federal Confidentiality of Alcohol and Drug Abuse Patient Records regulations: The Federal rules restrict any use of the information to criminally investigate or prosecute any alcohol or drug abuse patient.[facility]In the event this information is protected by the Federal Confidentiality of Alcohol and Drug Abuse Patient Records regulations: The Federal rules restrict any use of the information to criminally investigate or prosecute any alcohol or drug abuse patient.[facility]In the event this information is protected by the Federal Confidentiality of Alcohol and Drug Abuse Patient Records regulations: The Federal rules restrict any use of the information to criminally investigate or prosecute any alcohol or drug abuse patient.[facility] the event this information is protected by the Federal Confidentiality of Alcohol and Drug Abuse Patient Records regulations: The Federal rules restrict any use of the information to criminally investigate or prosecute any alcohol or drug abuse patient.[facility]In the event this information is protected by the Federal Confidentiality of Alcohol and Drug Abuse Patient Records regulations: The Federal rules restrict any use of the information to criminally investigate or prosecute any alcohol or drug abuse patient.[facility] HospitalIn the event this information is protected by the Federal Confidentiality of Alcohol and Drug Abuse Patient Records regulations: The Federal rules restrict any use of the information to criminally investigate or prosecute any alcohol or drug abuse patient.[facility]In the event this information is protected by the Federal Confidentiality of Alcohol and Drug Abuse Patient Records regulations: The Federal rules restrict any use of the information to criminally investigate or prosecute any alcohol or drug abuse patient.[facility] HospitalIn the event this information is protected by the Federal Confidentiality of Alcohol and Drug Abuse Patient Records regulations: The Federal rules restrict any use of the information to criminally investigate or prosecute any alcohol or drug abuse patient.[facility]In the event this information is protected by the Federal Confidentiality of Alcohol and Drug Abuse Patient Records regulations: The Federal rules restrict any use of the information to criminally investigate or prosecute any alcohol or drug abuse patient.[facility]In the event this information is protected by the Federal Confidentiality of Alcohol and Drug Abuse Patient Records regulations: The Federal rules restrict any use of the information to criminally investigate or prosecute any alcohol or drug abuse patient.[facility] HospitalIn the event this information is protected by the Federal Confidentiality of Alcohol and Drug Abuse Patient Records regulations: The Federal rules restrict any use of the information to criminally investigate or prosecute any alcohol or drug abuse patient.[facility] HospitalIn the event this information is protected by the Federal Confidentiality of Alcohol and Drug Abuse Patient Records regulations: The Federal rules restrict any use of the information to criminally investigate or prosecute any alcohol or drug abuse patient.[facility] HospitalIn the event this information is protected by the Federal Confidentiality of Alcohol and Drug Abuse Patient Records regulations: The Federal rules restrict any use of the information to criminally investigate or prosecute any alcohol or drug abuse patient.[facility] HospitalIn the event this information is protected by the Federal Confidentiality of Alcohol and Drug Abuse Patient Records regulations: The Federal rules restrict any use of the information to criminally investigate or prosecute any alcohol or drug abuse patient.[facility] HospitalIn the event this information is protected by the Federal Confidentiality of Alcohol and Drug Abuse Patient Records regulations: The Federal rules restrict any use of the information to criminally investigate or prosecute any alcohol or drug abuse patient.[facility] HospitalIn the event this information is protected by the Federal Confidentiality of Alcohol and Drug Abuse Patient Records regulations: The Federal rules restrict any use of the information to criminally investigate or prosecute any alcohol or drug abuse patient.[facility] HospitalIn the event this information is protected by the Federal Confidentiality of Alcohol and Drug Abuse Patient Records regulations: The Federal rules restrict any use of the information to criminally investigate or prosecute any alcohol or drug abuse patient.[facility] HospitalIn the event this information is protected by the Federal Confidentiality of Alcohol and Drug Abuse Patient Records regulations: The Federal rules restrict any use of the information to criminally investigate or prosecute any alcohol or drug abuse patient.[facility] HospitalIn the event this information is protected by the Federal Confidentiality of Alcohol and Drug Abuse Patient Records regulations: The Federal rules restrict any use of the information to criminally investigate or prosecute any alcohol or drug abuse patient.[facility]In the event this information is protected by the Federal Confidentiality of Alcohol and Drug Abuse Patient Records regulations: The Federal rules restrict any use of the information to criminally investigate or prosecute any alcohol or drug abuse patient.[facility] HospitalIn the event this information is protected by the Federal Confidentiality of Alcohol and Drug Abuse Patient Records regulations: The Federal rules restrict any use of the information to criminally investigate or prosecute any alcohol or drug abuse patient.[facility] HospitalIn the event this information is protected by the Federal Confidentiality of Alcohol and Drug Abuse Patient Records regulations: The Federal rules restrict any use of the information to criminally investigate or prosecute any alcohol or drug abuse patient.[facility] HospitalIn the event this information is protected by the Federal Confidentiality of Alcohol and Drug Abuse Patient Records regulations: The Federal rules restrict any use of the information to criminally investigate or prosecute any alcohol or drug abuse patient.[facility] HospitalIn the event this information is protected by the Federal Confidentiality of Alcohol and Drug Abuse Patient Records regulations: The Federal rules restrict any use of the information to criminally investigate or prosecute any alcohol or drug abuse patient.[facility] Reason for Visit (unrecogniz ed section and content) Reason Comments First Time Treatment Education Reason Comments Care Coordination Positive home UTI te st result Specialty Diagnoses / Procedures Referred By Spencer t Referred To Contact Diagnoses Malignant neoplasm of urinary bladder, unspecified site (HCC) Jacek Cano MD [address] [place] [address] [place] [address] [facility] [address] [place] [address] Referral ID Status Reason Start Date Expiration Date V isits Requested Visits Authorized [id number] Authorized 03/17/2024 06/15/2024 99 99 Reason Comments Bladder Cancer Reason Comments Lab Orders Reason Comments Care Coordination C1D1 treatment follo w up call Reason Comments Care Coordination results Reason Comments Care Coordination Medication question Reason Comments Care Coordination Clinical update, mor e BCG treatments FOR RECORDS PERTAINING TO PATIENTS WHO ARE [...] BE BASED ON THE PRIMARY CLINICAL RECORDS. [facility] [employer] provides no warranty or guarantee of the accuracy or completeness of information in this document.
[2024-07-15 20:40] LABS: Troponin I High Sensitivity 61.9 pg/mL (4.0-76.1)
[2024-07-15] MEDS: POLYETHYLENE GLYCOL 3350 17 GM POWDER PACKET PO (22:15)
[2024-07-15] MEDS: CARVEDILOL 6.25 MG TABLET PO (22:15)
[2024-07-15] MEDS: DICLOFENAC SODIUM 25 MG TABLET.DR 50 MG PO (22:15)
[2024-07-15] MEDS: ISOSORBIDE MONONITRATE 30 MG TAB.ER.24H PO (22:15)
[2024-07-16] VITALS (8 sets, daily range): BP systolic 103–126; BP diastolic 56–67; PULSE 47–74; TEMP 36.5; O2SAT 93
[2024-07-16 05:19] LABS: Basophils Percent Auto 0.5 % (0.2-2.0); Eosinophils Absolute Auto 0.2 10^3/uL (0.0-0.7); Eosinophils Percent Auto 3.5 % (0.9-7.0); Hemoglobin 12.3 g/dL (14.0-18.0); Immature Granulocytes Abs Auto 0.01 10^3/uL (0.00-0.03); Immature Granulocytes Pct Auto 0.2 % (0.0-0.5); Lymphocytes Absolute Auto 1.4 10^3/uL (1.2-3.8); Lymphocytes Percent Auto 24.8 % (20.5-60.0); Mean Corpuscular HGB Conc 34.2 g/dL (29.9-35.2); Mean Corpuscular Hemoglobin 32.1 pg (25.9-34.0); Mean Platelet Volume 9.8 fL (9.5-13.5); Monocytes Absolute Auto 0.8 10^3/uL (0.3-0.8); Monocytes Percent Auto 14.7 % (1.7-12.0); Neutrophils Absolute Auto 3.2 10^3/uL (1.4-6.5); Neutrophils Percent Auto 56.3 % (43.0-75.0); Platelet Count 150 10^3/uL (150-450); Red Blood Count 3.83 10^6/uL (4.70-6.10); Red Cell Distribution Width 13.1 % (11.0-15.0); White Blood Count 5.7 10^3/uL (4.0-11.0)
[2024-07-16 05:43] LABS: BUN Creatinine Ratio 22.4; Calcium 9.3 mg/dL (8.5-10.1); Carbon Dioxide 27.7 mmol/L (21.0-32.0); Chloride 107 mmol/L (98-107); Estimated GFR (African America >60 (>=60 mL/min/1.73m^2); Estimated GFR (Non-African Ame >60 (>=60 mL/min/1.73m^2); Glucose 89 mg/dL (74-106); Potassium 4.7 mmol/L (3.5-5.1); Sodium 139 mmol/L (136-145); Troponin I High Sensitivity 47.8 pg/mL (4.0-76.1)
[2024-07-16] MEDS: LEVOTHYROXINE SODIUM 88 MCG TABLET 44 MCG PO (05:50)
[2024-07-16] MEDS: LEVOTHYROXINE SODIUM 25 MCG TABLET PO (05:50)
[2024-07-16] MEDS: ACETAMINOPHEN 500 MG TABLET 1000 MG PO (05:50)
--- NOTE | 2024-07-16 06:53 | P.HP_ITS ---
HPI H&P: HPI History of Present Illness Chief complaint: breakthrough Hypertension Narrative: Patient is evaluated in the emergency room after having episode at a fast food place. He felt really diaphoretic, pain into his upper back, in ER found to have blood pressure was significant for systolics over 220, admitted for workup Opioid HPI Opioid Management Most Recent Pain and Opioid Data: Last Pain Scale 2 07/16/24 07:38 07/16/24 Last Pain Assessment 07/16/24 09:00 Last MAR Pain Assessment 07/16/24 06:45 Last ORT Total Score 0 07/15/24 20:00 07/15/24 Last ORT Risk Category Low Risk 07/15/24 20:00 07/15/24 PFSH PFSH Medical History (Updated 07/17/24 @ 05:54 by Tucker Melvin MD) Right bundle branch block ?I45.10 - Unspecified right bundle-branch block (ICD-10) BPH with obstruction/lower urinary tract symptoms ?N40.1 - Benign prostatic hyperplasia with lower urinary tract symptoms (ICD- 10) ?N13.8 - Other obstructive and reflux uropathy (ICD-10) BPH with elevated PSA ?N40.0 - Benign prostatic hyperplasia without lower urinary tract symptoms (ICD-10) ?R97.20 - Elevated prostate specific antigen [PSA] (ICD-10) Hematuria ?R31.9 - Hematuria, unspecified (ICD-10) Urinary tract infection ?N39.0 - Urinary tract infection, site not specified (ICD-10) Bladder tumor ?D49.4 - Neoplasm of unspecified behavior of bladder (ICD-10) Hearing loss ?H91.90 - Unspecified hearing loss, unspecified ear (ICD-10) Back pain ?M54.9 - Dorsalgia, unspecified (ICD-10) Arthritis ?M19.90 - Unspecified osteoarthritis, unspecified site (ICD-10) High cholesterol ?E78.00 - Pure hypercholesterolemia, unspecified (ICD-10) Hypertension ?I10 - Essential (primary) hypertension (ICD-10) Coronary artery disease ?I25.10 - Atherosclerotic heart disease of [place] coronary artery without angina pectoris (ICD-10) Hypothyroidism ?E03.9 - Hypothyroidism, unspecified (ICD-10) Surgical History (Updated 01/24/24 @ 08:36 by Monika Ha NP) Hx of prostate biopsy ?Z98.890 - Other specified postprocedural states (ICD-10) History of heart artery stent ?Z95.5 - Presence of coronary angioplasty implant and graft (ICD-10) 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 - Presence of aortocoronary bypass graft (ICD-10) History of hernia repair ?Z98.890 - Other specified postprocedural states (ICD-10) ?Z87.19 - Personal history of other diseases of the digestive system (ICD-10) History of colonoscopy ?Z98.890 - Other specified postprocedural states (ICD-10) Family History (Updated 07/15/24 @ 20:45 by Fatuma Granger RN) Father Family history of CHF (congestive heart failure) Family history of heart disease Mother Family history of cancer Family history of ovarian cancer Daughter Family history of hypertension Son Family history of hypertension Other Family history of myocardial infarction Social History (Updated 07/15/24 @ 20:47 by Fatuma Granger RN) Within the past year, how often did you have a drink containing alcohol: never Score interpretation: A score less than 4 is consistent with normal alcohol consumption. Smoking status: Never smoker Non-prescribed substance use: denies use Highest level of school completed/degree received: Associate degree: academic program Are you now , , , , never or living with a partner: In a typical week, how many times do you talk on the telephone with family, friends, or neighbors: 3 or more times per week How often do you get together with friends or relatives: 3 or more times per week Little interest or pleasure in doing things: not at all Feeling down, depressed, or hopeless: not at all Do you think of yourself as: straight/heterosexual Gender Identity: male Meds Home Medications and Allergies Home Medications ?Medication ?Instructions ?Recorded ?Confirmed ?Type amlodipine 2.5 mg tablet 2.5 mg PO DAILY 01/24/24 07/15/24 History aspirin 81 mg tablet,delayed 81 mg PO DAILY 01/24/24 07/15/24 History release (Adult Aspirin Regimen) diclofenac sodium 50 mg 50 mg PO Q12H PRN pain 01/24/24 07/16/24 History tablet,delayed release isosorbide mononitrate 30 mg 15 mg PO DAILY 01/24/24 07/15/24 History tablet,extended release 24 hr levothyroxine 137 mcg capsule 68.5 mcg PO DAILY 01/24/24 07/15/24 History rosuvastatin 20 mg sprinkle capsule 20 mg PO DAILY 01/24/24 07/15/24 History tamsulosin 0.4 mg capsule (Flomax) 0.4 mg PO DAILY 01/24/24 07/15/24 History lubricants topical gel 1 ea topical .as needed #113 grams 03/01/24 07/16/24 Rx (Lubricating Jelly (with chlorhexidine) topical) carvedilol 6.25 mg tablet 6.25 mg PO BID #60 tabs 07/16/24 Rx Allergies Allergy/AdvReac Type Severity Reaction Status Date / Time No Known Drug Allergies Allergy Verified 07/15/24 15:50 Exam Constitutional Vital Signs, click to edit/add: Last Vital Signs Temp 97.7 F 07/16/24 05:51 Pulse 52 L 07/16/24 05:51 Resp 18 07/16/24 05:51 BP 103/56 07/16/24 05:51 Pulse Ox 93 L 07/16/24 05:51 O2 Del Method Room Air 07/16/24 05:51 Documenting provider has reviewed patient's vital signs: yes Common normals: no apparent distress Chest Common normals: inspection of chest normal and palpation of chest normal Respiratory Common normals: normal respiratory effort and no retractions Cardio Common normals: regular rate and regular rhythm GI Common normals: Normal to inspection, nondistended, normoactive bowel sounds present Extremity Common normals: normal to inspection and full ROM Results Labs Labs: Short CBC 07/15/24 07/16/24 Range/Units 16:10 05:12 WBC 5.7 5.7 (4.0-11.0) 10^3/uL Hgb 14.2 12.3 L (14.0-18.0) g/dL Hct 41.1 L 36.0 L (42.0-54.0) % Plt Count 154 150 (150-450) 10^3/uL BMP 07/15/24 07/16/24 16:10 05:12 Sodium 136 139 Potassium 4.3 4.7 Chloride 103 107 Carbon Dioxide 30.0 27.7 BUN 21.0 H 24.0 H Creatinine 1.20 1.07 Glucose 96 89 Calcium 10.0 9.3 Liver Function 07/15/24 Range/Units 16:10 Total Bilirubin 0.6 (0.2-1.0) mg/dL AST 27 (15-37) U/L ALT 42 (16-63) U/L Alkaline Phosphatase 76 (46-116) U/L Albumin 3.8 (3.4-5.0) g/dL Assessment and Plan Assessment and Plan (1) Hypertensive urgency: (2) Hypertension: Plan Admission findings: Patient with asymptomatic hypertension with diaphoresis and systolic blood pressure over 220 Uncontrolled hypertension leading to hypertensive urgency-improved this morning, adjusted his Imdur and Coreg, if improved still later this morning he will be discharged to home Lumbar radiculopathy-continue with home medications BPH continue with home medications Hypercholesterolemia continue with home medications Admission status: Patient with symptomatic hypertension Leading to hypertensive urgency but much improved today, started off as observation status, with improvement overnight likely discharge home later today will maintain observation status
[2024-07-16] MEDS: AMLODIPINE BESYLATE 5 MG TABLET 2.5 MG PO (08:27)
[2024-07-16] MEDS: TAMSULOSIN HCL 0.4 MG CAPSULE PO (08:27)
[2024-07-16] MEDS: ASPIRIN 81 MG TABLET.DR PO (08:28)
[2024-07-16] MEDS: ISOSORBIDE MONONITRATE 30 MG TAB.ER.24H PO (08:28)
--- NOTE | 2024-07-16 08:50 | CM.NOTE ---
Rounds made with Dr. Melvin, pt will discharge to home today. Dr. Melvin discussed findings with pt and reason for admission to hospital. Dr. Melvin will change BP medication for discharge. Pt will need to f/u with PCP.
--- NOTE | 2024-07-16 08:53 | P.DS_ITS ---
DS: Providers Provider Date of admission: 07/15/24 19:36 Primary care physician: Tucker Melvin MD Consults: 07/15/24 Consult to [place] Operator Routine Reason for consult:: Advanced Directives 07/15/24 17:55 Consult to Pharmacy Routine Consulting Provider: Reason for consultation: Please [place] me when Med Rec is Updated Has provider been notified: No Occupational Therapy Eval and Treat Routine Reason for consultation: Only if needed for Rehab Has provider been notified: No Physical Therapy Eval and Treat Routine Reason for consultation: Eval and Treat Has provider been notified: No DS: Diagnosis Discharge Diagnosis (1) Hypertensive urgency: Plan Admission findings: Patient with asymptomatic hypertension with diaphoresis and systolic blood pressure over 220 Uncontrolled hypertension leading to hypertensive urgency-improved this morning, adjusted his Imdur and Coreg, if improved still later this morning he will be discharged to home Lumbar radiculopathy-continue with home medications BPH continue with home medications Hypercholesterolemia continue with home medications Admission status: Patient with symptomatic hypertension Leading to hypertensive urgency but much improved today, started off as observation status, with improvement overnight likely discharge home later today will maintain observation status ? DS: Summary Hospital Course Hospital Course: Patient is seen and evaluated in the emergency room after acute onset of upper back pain and diaphoresis, found of systolic blood pressure over 220, medications were given in ER with improvement in his blood pressure we adjusted his Coreg and Imdur and he is much improved this morning, he will be discharged to home in improving condition. Medications see list. Follow-up with me in the office in the next 2 to 5 days Status at Discharge Overall status at discharge: patient is not back to baseline Time Spent with Patient Time attestation: Total time spent providing and/or coordinating discharge services: Time spent: greater than 30 minutes Exam Constitutional Vital Signs, click to edit/add: Last Vital Signs Temp 97.7 F 07/16/24 05:51 Pulse 51 L 07/16/24 08:28 Resp 18 07/16/24 05:51 BP 126/67 07/16/24 08:27 Pulse Ox 93 L 07/16/24 05:51 O2 Del Method Room Air 07/16/24 05:51 Documenting provider has reviewed patient's vital signs: yes Common normals: no apparent distress Chest Common normals: inspection of chest normal and palpation of chest normal Respiratory Common normals: normal respiratory effort and no retractions Cardio Common normals: regular rate and regular rhythm GI Common normals: Normal to inspection, nondistended, normoactive bowel sounds present Extremity Common normals: normal to inspection and full ROM DS: Data Data Completed and Pending Labs on day of discharge: Labs from last 24 hours 07/16/24 07/15/24 07/15/24 05:12 20:25 17:23 WBC 5.7 RBC 3.83 L Hgb 12.3 L Hct 36.0 L MCV 94.0 MCH 32.1 MCHC 34.2 RDW 13.1 Plt Count 150 MPV 9.8 Neut % (Auto) 56.3 Lymph % (Auto) 24.8 Meagher % (Auto) 14.7 H Eos % (Auto) 3.5 Baso % (Auto) 0.5 Neut # (Auto) 3.2 Lymph # (Auto) 1.4 Meagher # (Auto) 0.8 Eos # (Auto) 0.2 Baso # (Auto) 0.0 Abs Immat Gran (auto) 0.01 Imm/Tot Granulo (auto) 0.2 PT INR Sodium 139 Potassium 4.7 Chloride 107 Carbon Dioxide 27.7 Anion Gap 9.0 BUN 24.0 H Creatinine 1.07 Est GFR ( Amer) >60 Est GFR (Non-Af Amer) >60 BUN/Creatinine Ratio 22.4 Glucose 89 Calcium 9.3 Magnesium 2.1 Total Bilirubin AST ALT Alkaline Phosphatase Troponin I High Sens 47.8 61.9 23.8 NT-Pro-B Natriuret Pep 435.0 Total Protein Albumin Globulin Albumin/Globulin Ratio 07/15/24 16:10 WBC 5.7 RBC 4.36 L Hgb 14.2 Hct 41.1 L MCV 94.3 H MCH 32.6 MCHC 34.5 RDW 13.0 Plt Count 154 MPV 9.9 Neut % (Auto) 56.3 Lymph % (Auto) 25.6 Meagher % (Auto) 13.8 H Eos % (Auto) 3.4 Baso % (Auto) 0.7 Neut # (Auto) 3.2 Lymph # (Auto) 1.5 Meagher # (Auto) 0.8 Eos # (Auto) 0.2 Baso # (Auto) 0.0 Abs Immat Gran (auto) 0.01 Imm/Tot Granulo (auto) 0.2 PT 11.0 INR 1.04 Sodium 136 Potassium 4.3 Chloride 103 Carbon Dioxide 30.0 Anion Gap 7.3 BUN 21.0 H Creatinine 1.20 Est GFR ( Amer) >60 Est GFR (Non-Af Amer) 57 L BUN/Creatinine Ratio 17.5 Glucose 96 Calcium 10.0 Magnesium Total Bilirubin 0.6 AST 27 ALT 42 Alkaline Phosphatase 76 Troponin I High Sens 16.9 NT-Pro-B Natriuret Pep 230.0 Total Protein 6.9 Albumin 3.8 Globulin 3.1 Albumin/Globulin Ratio 1.2 Discharge Plan Discharge Disposition: Home, Self-Care Condition: Good Discharge Medications: New carvedilol 6.25 mg Tablet 6.25 mg PO BID Qty: 60 11RF Continued lubricants [Lubricating Jelly (chlorhexid)] Gel 1 ea topical .as needed Qty: 113 0RF Rx Instructions: apply with with each self catheter diclofenac sodium 50 mg tablet,delayed release (DR/EC) 50 mg PO Q12H PRN (Reason: pain) isosorbide mononitrate 30 mg tablet extended release 24 hr 15 mg PO DAILY rosuvastatin 20 mg capsule, sprinkle 20 mg PO DAILY levothyroxine 137 mcg capsule 68.5 mcg PO DAILY amlodipine 2.5 mg tablet 2.5 mg PO DAILY tamsulosin [Flomax] 0.4 mg capsule 0.4 mg PO DAILY aspirin [Adult Aspirin Regimen] 81 mg tablet,delayed release (DR/EC) 81 mg PO DAILY Discontinued carvedilol 3.125 mg tablet 3.125 mg PO BID Rx Instructions: must administer with a meal/food Print Language: French Patient Instructions: Chronic Hypertension (DC), Back Pain (GEN) Forms: Portal Instructions Follow Up Appointments: July 21 @ 10:30am with Dr. Melvin [phone] Discharge Date/Time: 07/16/24 10:02
--- NOTE | 2024-07-16 10:00 | CM.NOTE ---
Discussed with pt about discharge to home and monitoring BP r/t change in medications at discharge. Pt has BP machine at home and will check BP and record at least 2 x day and take to f/u appointment.
--- NOTE | 2024-07-16 10:02 | CM.NOTE ---
Medicare Outpatient Observation Notice discussed with pt, pt verbaizes understanding and signs paper. Original given to pt and copy placed on pt's chart.
--- NOTE | 2024-07-16 10:36 | SWNOTE1 ---
SW was consulted for Advanced Directives, pt was discharged prior to SW being able to speak with pt.
--- NOTE | 2024-07-17 14:57 | CM.DCFOLLOWU ---
Person spoke with:patient How are you feeling?well How is your pain?none Did you understand your discharge instructions?yes Do you have any questions about your discharge instructions?no Were you given any prescriptions at discharge?yes Were you able to get your prescriptions filled?yes Do you understand how to take your medications as ordered?yes Do you have any questions about your follow up appointment and do you plan to keep your follow up appointment? no questions, reviewed follow up Is there anything else that you would like to discuss?no Questions/Comments/Concerns/Other:none
== END 2024-07-16 10:02 | disposition home or self-care (01) ==
LOC: ER 17:53 → MS 19:40
PROVIDERS: Physician Assistant; Admitting Provider Family Medicine; Emergency Provider Emergency Medicine; PCP Family Medicine; Visit Provider Family Medicine
DX: I16.0 Hypertensive urgency (principal); M54.6 Pain in thoracic spine; I10 Essential (primary) hypertension; Z95.5 Presence of coronary angioplasty implant and graft; Z95.1 Presence of aortocoronary bypass graft; Z79.899 Other long term (current) drug therapy; M54.16 Radiculopathy, lumbar region; E78.00 Pure hypercholesterolemia, unspecified; N40.0 Benign prostatic hyperplasia without lower urinary tract symptoms
CPT/HCPCS: 36415; 71275; 80048; 80053; 83735; 83880; 84484; 85025; 85610; 93005; 94761; 96374; 96375; 99285; G0378; J1920; Q9967

== ENCOUNTER 2024-09-10 09:34 | Outpatient (REF) | payer MEDICARE, OTHER, SELFPAY ==
[2024-09-10 09:54] LABS: Internal Control Within Normal Limits; Occult Blood Negative
== END 2024-09-10 09:35 | disposition home or self-care (01) ==
LOC: LAB 09:34
PROVIDERS: PCP Family Medicine; Visit Provider Family Medicine
DX: Z12.11 Encounter for screening for malignant neoplasm of colon (principal)
CPT/HCPCS: G0328